=== PATIENT | female | born 1960 | race Caucasian/White ===

== ENCOUNTER → 2017-08-11 19:21 | Outpatient (CLI) | payer OTHER, SELFPAY ==
[2017-08-17 10:23] LABS: HPV Reflexed? NOT INDICATED
== END ==
PROVIDERS: Family Provider Family Medicine; PCP Family Medicine; Visit Provider Family Medicine
DX: Z01.419 Encounter for gynecological examination (general) (routine) without abnormal findings (principal)
CPT/HCPCS: 88175; G0145

== ENCOUNTER → 2017-08-14 16:25 | Outpatient (CLI) | payer OTHER, SELFPAY ==
--- NOTE | 2017-08-14 16:31 | US_ITS ---
STUDY: ULTRASOUND TRANSVAGINAL CLINICAL: Female, 56 years old. Postmenopausal bleeding. TECHNIQUE: Transabdominal and Transvaginal COMPARISON: None. FINDINGS: Normal uterine size measuring 3.9 x 5.2 x 3.3 cm in maximal craniocaudal dimension. There are uterine fibroids. One measures 8 mm and is calcified and echogenic in the anterior uterine body. Another is 2 cm and is exophytic off of the fundus. Normal endometrial thickness measuring 8 mm. There are no endometrial masses, and there is no fluid in the endometrial cavity. Endometrial echoes are hyperechoic. Nabothian cyst of the uterine cervix. Normal right ovary, measuring 2.6 x 1.8 x 1.7 cm. There are multiple follicles without a dominant cyst. Normal left ovary, measuring 3.2 x 2.2 x 1.5 cm. There is a 1.6 cm cyst. There is no free fluid in the pelvis. Normal bladder contour with volume of 300 cc. US/Pelvic (Non ) IMPRESSION: Relatively small uterine fibroids, otherwise negative. Electronically Signed: Alessandro Joe MD at 11:22 EDT , Service support ,
--- NOTE | 2017-08-14 16:42 | US_ITS ---
STUDY: ULTRASOUND TRANSVAGINAL CLINICAL: Female, 56 years old. Postmenopausal bleeding. TECHNIQUE: Transabdominal and Transvaginal COMPARISON: None. FINDINGS: Normal uterine size measuring 3.9 x 5.2 x 3.3 cm in maximal craniocaudal dimension. There are uterine fibroids. One measures 8 mm and is calcified and echogenic in the anterior uterine body. Another is 2 cm and is exophytic off of the fundus. Normal endometrial thickness measuring 8 mm. There are no endometrial masses, and there is no fluid in the endometrial cavity. Endometrial echoes are hyperechoic. Nabothian cyst of the uterine cervix. Normal right ovary, measuring 2.6 x 1.8 x 1.7 cm. There are multiple follicles without a dominant cyst. Normal left ovary, measuring 3.2 x 2.2 x 1.5 cm. There is a 1.6 cm cyst. There is no free fluid in the pelvis. Normal bladder contour with volume of 300 cc. US/Transvaginal Non- IMPRESSION: Relatively small uterine fibroids, otherwise negative. Electronically Signed: Alessandro Joe MD at 11:22 EDT , Service support ,
== END ==
PROVIDERS: Family Provider Family Medicine; PCP Family Medicine; Visit Provider Family Medicine
DX: D25.9 Leiomyoma of uterus, unspecified (principal); N95.0 Postmenopausal bleeding
CPT/HCPCS: 76830; 76856; 93976

== ENCOUNTER → 2017-09-12 09:45 | Outpatient (CLI) | payer OTHER, SELFPAY ==
[2017-09-12 11:24] LABS: Estradiol 19.7 pg/mL; Follicle Stimulating Hormone 56.3 mIU/mL
== END ==
PROVIDERS: Visit Provider Obstetrics & Gynecology
DX: N92.5 Other specified irregular menstruation (principal)
CPT/HCPCS: 36415; 82670; 83001

== ENCOUNTER 2017-10-05 09:56 | Day surgery (SDC) | payer OTHER, SELFPAY ==
[2017-09-28 17:13] LABS: Hematocrit 38.9 % (37-47); Hemoglobin 13.1 g/dl (12.0-15.0); Mean Corp Hgb Conc 33.7 g/gl (32-36); Mean Corpuscular Hgb 27.8 pg (27.0-32.0); Mean Corpuscular Volume 82.4 fL (81-99); Mean Platelet Vol. 10.1 fl (6.2-12.0); Platelet Count 309 K/mm3 (150-450); RBC Distribution Width CV 15.8 % (11.6-14.6); RBC Distribution Width SD 47.3 fl (35.1-43.9); Red Blood Count 4.72 M/mm3 (4.2-5.4); White Blood Count 8.3 K/mm3 (4.4-11.0)
[2017-09-28 17:21] LABS: Scan Indicated on CBC? Y/N NO
[2017-09-28 17:29] LABS: International Normalized Ratio 1.1; Prothrombin Time (Protime)PT. 13.7 SECONDS (11.7-14.9)
[2017-09-28 17:30] LABS: Partial Thromboplast Time 32.8 Seconds (24.1-36.2)
[2017-09-28 17:46] LABS: Anion Gap 8 (5-15); BUN 19 mg/dL (7-18); BUN/Creat Ratio 30.7 RATIO (10-20); Calcium,Total 9.1 mg/dL (8.5-10.1); Chloride 103 mmol/L (98-107); Creatinine, Serum 0.62 mg/dL (0.55-1.02); EST Glomerular Filtration Rate 105 mL/min (>60); Est Glom Filt Rate - Afr Amer 127 mL/min (>60); Glucose 86 mg/dL (74-106); Potassium 3.6 mmol/L (3.5-5.1); Sodium Level 137 mmol/L (136-145); Thyroid Stim Hormone (TSH) 0.58 uIU/mL (0.358-3.74)
[2017-09-28 18:16] LABS: Hemoglobin A1c 5.5 % (4.2-6.3)
[2017-10-05] VITALS (7 sets, daily range): BP systolic 153–168; BP diastolic 66–88; PULSE 51–66; RESP 16; TEMP 35.9–36.9; O2SAT 97–100; BMI 49.0
--- NOTE | 2017-10-05 | EMB_PTH ---
PATIENT: ROSANNE MCCLAIN LOC: [facility] [place] U#:[id number] AGE/SX: 56/F ROOM: RE10/05/[address]: Dr. Lyndsay Singh MD : 1960 BED: DIS: 10/05/2017 SPEC #: [id number] RECD: 10/06/17 13:18 STATUS: BUDDY CHERRY #: [id number] WAYNE: 10/05/17 00:[address]: Lyndsay Scott DEPT: SURGICAL PATHOLOGY RECD BY: Bib Esteban ENTERED: 10/06/17 13:19 SP TYPE: ENDOM BX/C MARY CARMEN DR: Dr. Rose Mary Ocasio MD Tissues: A - Endometrium, NOS B - Endometrium, NOS Procedures: Surgery Specimen Level IV HEADER OPERATION: Hysteroscopy, dilation and curettage, polypectomy PRE-OP DIAGNOSIS: Postmenopausal bleeding TISSUE SUBMITTED: A ? Endometrial curettings, B ? Endometrial polyp MICROSCOPIC DIAGNOSIS A. Endometrial curettings: Strips of benign endometrial epithelium and superficial fragments of inactive endometrium. Fragments of benign ectocervical epithelium. B. Endometrial polyp, polypectomy: Fragments of benign endometrial polyp with simple hyperplasia without atypia. SJ:meenakshi 10/10/17 COMMENT Case has been reviewed in consultation with Dr. Su who concurs with the above diagnosis. IDC:AM MICROSCOPIC DESCRIPTION Slides are reviewed. GROSS DESCRIPTION A - Received in fixative is one container labeled with the patient's name and designated endometrial curettings. The specimen consists of multiple fragments of hemorrhagic soft tissue that in aggregate measure 1.5 x 1.5 x 0.1 cm. The specimen is totally submitted in one cassette. B - Received in fixative is one container labeled with the patient's name and designated endometrial polyp. The specimen consists of a piece of smith-pink polyp measuring 2 x 0.6 x 0.3 cm. Also received are multiple fragments of smith soft tissue mixed with blood clot measuring in aggregate 1 x 0.5 x 0.1 cm. The entire specimen is submitted in one cassette. / SJ:meenakshi 10/06/17 TC:5 CPT: 53431 x2
[2017-10-05] MEDS: Ketorolac 30 MG/ML Syringe IV (15:15)
--- NOTE | 2017-10-05 15:36 | PCM.DC.D&C ---
Discharge Diet: No Restrictions Discharge Activity: Return to Normal Activity May resume sexual activity in: - - 2-4 weeks Call your doctor if you observe: Fever of 101 or Higher, Inability to urinate, Inability to have a bowel movement, Using more than one pad per hour, Shortness of breath, Chest pain, Calf discomfort, Uncontrolled pain Allergies/Adverse Reactions: Allergies ramipril [From Altace] Allergy (Verified 09/28/17 13:47) Swelling Medications to take at Discharge Amlodipine [Norvasc] 2.5 mg PO DAILY 03/18/15 Hydrochlorothiazide [Hctz] 12.5 mg PO DAILY 03/18/15 Levothyroxine [Synthroid] 125 mcg PO DAILY 03/18/15 Liothyronine Sodium [Cytomel] 25 mcg PO DAILY 03/18/15 Metoprolol Tartrate [Lopressor (beta akhil)] 100 mg PO DAILY 03/18/15 Ibuprofen 600 mg PO TID PRN #30 tab 10/05/17 Oxycodone [Oxyir] 5 mg PO Q6H PRN PRN 2 Days #5 tablet 10/05/17 The following prescriptions were given: Oxycodone [Oxyir] 5 mg PO Q6H PRN PRN 2 Days #5 tablet PRN Reason: Severe Pain (6-02/21) Ibuprofen 600 mg PO TID PRN #30 tab PRN Reason: Pain Primary Care Physician: Rose Mary Ocasio MD [Primary Care Provider] - Please Follow Up With: Lyndsay Hernandez MD When: 2-4 weeks
--- NOTE | 2017-10-05 16:40 | PCM.OPRPT ---
Problem List (1) Postmenopausal bleeding Status: Acute Report of Operation Date of Procedure: 10/05/17 Pre-Operative Diagnosis: Postmenopausal bleeding Post-Operative Diagnosis: Postmenopausal bleeding Surgery/Procedure Performed:: Hysteroscopy, dilation and curettage, polypectomy Description of Surgical Findings:: Endometrial polyp patient registrar: Tisha Stratton Type of Anesthesia:: Local MAC Anesthesiologist: [address] Specimen's removed: 1. Endometrial polyp 2. endometrial curettings Estimated Blood Loss (mL): 5 Description of Procedure: Indications: Ms. MCCLAIN is a 56-year-old postmenopausal woman found to have a 5 mm endometrial stripe in the setting of postmenopausal bleeding. She was counseled regarding of evaluation options and opted to proceed with dilation and curettage with hysteroscopy declined endometrial biopsy. Risks, benefits and indications of procedure were reviewed at length. Procedure: The patient was taken to the operating room and placed in the dorsal supine position and induced under MAC. She was then repositioned into dorsal lithotomy and the perineum was prepped and draped in sterile fashion. Uterus sounded to straight catheterization of the bladder was performed. A weighted speculum was placed into the vagina and the cervix visualized and grasped with anterior cervical lip using a single-tooth tenaculum. a paracervical block was placed for a total of 20 cc of 1% lidocaine. The uterus sounded to 2 and 4/6 inches. The cervix was subsequently dilated and hysteroscopy was performed demonstrating a right endometrial polyp. The cavity was otherwise normal-appearing. The hysteroscope was removed and polypectomy performed and followed by sharp curettage. Hysteroscopy was again performed the uterine cavity was without defects. The procedure was complete. The hysteroscope was removed as was the tenaculum from the cervix. The tenaculum sites were hemostatic. Hysteroscopic fluid deficit was approximately 200 mL. The patient was awakened and transferred to the recovery room without complication. The patient tolerated the procedure well. Sponge counts were correct ?2 - Complications None - Admit VTE Documentation VTE Present on Admission: No VTE Mechan Device Prophylaxis: SCD's VTE Pharm Prophylaxis ordered?: No
--- NOTE | 2017-10-05 16:46 | OP.PCM_ITS ---
Problem List (1) Postmenopausal bleeding Status: Acute Report of Operation Date of Procedure: 10/05/17 Pre-Operative Diagnosis: Postmenopausal bleeding Post-Operative Diagnosis: Postmenopausal bleeding Surgery/Procedure Performed:: Hysteroscopy, dilation and curettage, polypectomy Description of Surgical Findings:: Endometrial polyp production quality analyst: Tisha Stratton Type of Anesthesia:: Local MAC Anesthesiologist: [address] Specimen's removed: 1. Endometrial polyp 2. endometrial curettings Estimated Blood Loss (mL): 5 Description of Procedure: Indications: Ms. MCCLAIN is a 56-year-old postmenopausal woman found to have a 5 mm endometrial stripe in the setting of postmenopausal bleeding. She was counseled regarding of evaluation options and opted to proceed with dilation and curettage with hysteroscopy declined endometrial biopsy. Risks, benefits and indications of procedure were reviewed at length. Procedure: The patient was taken to the operating room and placed in the dorsal supine position and induced under MAC. She was then repositioned into dorsal lithotomy and the perineum was prepped and draped in sterile fashion. Uterus sounded to straight catheterization of the bladder was performed. A weighted speculum was placed into the vagina and the cervix visualized and grasped with anterior cervical lip using a single-tooth tenaculum. a paracervical block was placed for a total of 20 cc of 1% lidocaine. The uterus sounded to 2 and 4/6 inches. The cervix was subsequently dilated and hysteroscopy was performed demonstrating a right endometrial polyp. The cavity was otherwise normal- appearing. The hysteroscope was removed and polypectomy performed and followed by sharp curettage. Hysteroscopy was again performed the uterine cavity was without defects. The procedure was complete. The hysteroscope was removed as was the tenaculum from the cervix. The tenaculum sites were hemostatic. Hysteroscopic fluid deficit was approximately 200 mL. The patient was awakened and transferred to the recovery room without complication. The patient tolerated the procedure well. Sponge counts were correct ?2 - Complications None - Admit VTE Documentation VTE Present on Admission: No VTE Mechan Device Prophylaxis: SCD's VTE Pharm Prophylaxis ordered?: No
== END 2017-10-05 16:22 | disposition home or self-care (01) ==
LOC: SDC 09:57 → AC 09:57
PROVIDERS: Family Provider Family Medicine; PCP Family Medicine; Visit Provider Obstetrics & Gynecology
PROC: 0UDB8ZZ Extraction of Endometrium, Via Natural or Artificial Opening Endoscopic (ICD-10-PCS; CPT 58558; principal; 2017-10-05 11:15)
DX: N85.01 Benign endometrial hyperplasia (principal); N95.0 Postmenopausal bleeding; I10 Essential (primary) hypertension; E03.9 Hypothyroidism, unspecified; Z79.899 Other long term (current) drug therapy
CPT/HCPCS: 58558; 36415; 80048; 83036; 84443; 85027; 85610; 85730; 86850; 86900; 88305; J7120

== ENCOUNTER → 2017-10-18 08:06 | Outpatient (CLI) | payer OTHER, SELFPAY ==
--- NOTE | 2017-10-18 08:06 | DT_ITS ---
This patient was seen during an EMR downtime October 16, 2017 - October 23, 2017. This patient may have a combination of paper and electronic documentation or all paper documentation. All documentation is viewable within the e-chart portion of [facility] for each patient visit.
[2017-10-23 12:38] LABS: Vitamin D,25 Hydroxy 18.6 ng/mL (29.95-100.01)
[2017-10-23 12:39] LABS: Progesterone Level 1.24 ng/mL (See Comment)
[2017-10-24 17:54] LABS: ALB/GLOB Ratio 0.9 RATIO (0.9-2.4); AST(SGOT) 20 U/L (15-37); Alanine Aminotransfer ALT/SGPT 20 U/L (13-56); Albumin, Serum 3.6 g/dL (3.2-5.0); Alkaline Phosphatase 96 U/L (45-117); BUN 15 mg/dL (7-18); BUN/Creat Ratio 22.7 RATIO (10-20); Cholesterol 174 mg/dL (200); Creatinine, Serum 0.66 mg/dL (0.55-1.02); EST Glomerular Filtration Rate 98 mL/min (>60); Est Glom Filt Rate - Afr Amer 119 mL/min (>60); Globulin 3.8 g/dL (2.2-4.2); Glucose 93 mg/dL (74-106); Protein, Total 7.4 g/dL (6.4-8.2); Sodium Level 137 mmol/L (136-145); Triglycerides 80 mg/dL; Very Low Density Lipoprotein 16 mg/dL (5-40)
[2017-10-24 17:55] LABS: Anion Gap 6 (5-15); Chloride 103 mmol/L (98-107); Free T3 3.6 pg/mL (2.18-3.98); High Density Lipoprotein 55 mg/dL; Potassium 3.6 mmol/L (3.5-5.1); T4 Free Direct 1.02 ng/dL (0.76-1.46)
[2017-10-24 17:56] LABS: Prolactin 7.4 ng/mL
[2017-10-24 17:57] LABS: Hemoglobin A1c 5.6 % (4.2-6.3)
[2017-10-24 17:59] LABS: Hematocrit 47.5 % (37-47); Mean Corp Hgb Conc 31.6 g/gl (32-36); Mean Corpuscular Volume 82.5 fL (81-99); Mean Platelet Vol. 10.4 fl (6.2-12.0); Platelet Count 198 K/mm3 (150-450); RBC Distribution Width CV 15.5 % (11.6-14.6); RBC Distribution Width SD 47.1 fl (35.1-43.9); Red Blood Count 5.76 M/mm3 (4.2-5.4); Scan Indicated on CBC? Y/N NO; White Blood Count 4.5 K/mm3 (4.4-11.0)
[2017-10-24 20:55] LABS: Thyroid Stim Hormone (TSH) 0.24 uIU/mL (0.358-3.74)
== END ==
PROVIDERS: Family Provider Family Medicine; PCP Family Medicine; Visit Provider Obstetrics & Gynecology
DX: E03.9 Hypothyroidism, unspecified (principal); N92.5 Other specified irregular menstruation; R53.83 Other fatigue
CPT/HCPCS: 36415; 80053; 80061; 82306; 82533; 82627; 82670; 83036; 83498; 83525; 84144; 84146; 84270; 84403; 84439; 84443; 84481; 85027; 82626

== ENCOUNTER → 2017-11-14 08:54 | Outpatient (CLI) | payer OTHER, SELFPAY ==
[2017-11-15 09:46] LABS: Insulin 14.2 mU/L (2.6-37.6)
== END ==
PROVIDERS: Visit Provider Obstetrics & Gynecology
DX: N92.5 Other specified irregular menstruation (principal)
CPT/HCPCS: 36415; 83525

== ENCOUNTER → 2017-11-20 08:38 | Outpatient (CLI) | payer OTHER, SELFPAY | PROVIDERS: Visit Provider Obstetrics & Gynecology | DX: R94.7 Abnormal results of other endocrine function studies (principal); R79.89 Other specified abnormal findings of blood chemistry | CPT/HCPCS: 36415; 82533; 84403 ==

== ENCOUNTER → 2017-12-27 13:33 | Outpatient (CLI) | payer OTHER, SELFPAY | PROVIDERS: Family Provider Family Medicine; PCP Family Medicine; Visit Provider Family Medicine | DX: Z12.31 Encounter for screening mammogram for malignant neoplasm of breast (principal) | CPT/HCPCS: 77063; 77067 ==

== ENCOUNTER → 2018-02-19 11:46 | Outpatient (CLI) | payer OTHER, SELFPAY ==
--- NOTE | 2018-02-19 | EMB_PTH ---
PATIENT: ROSANNE MCCLAIN LOC: [facility] U#:[id number] AGE/SX: 64/F ROOM: RE02/19/[address]: Dr. Lyndsay Singh MD : 1960 BED: DIS: SPEC #: [id number] RECD: 02/19/18 13:54 STATUS: BUDDY CHERRY #: [id number] WAYNE: 02/19/18 00:[address]: Lyndsay Scott DEPT: SURGICAL PATHOLOGY RECD BY: Fareed Jones Tissues: Endometrium, NOS Procedures: Surgery Specimen Level IV HEADER OPERATION: Endometrial biopsy PRE-OP DIAGNOSIS: History of endometrial hyperplasia, TISSUE SUBMITTED: Endometrial biopsy MICROSCOPIC DIAGNOSIS Endometrial biopsy: Strips and superficial fragments of proliferative endometrium, blood and mucous. Negative for hyperplasia. SJ:meenakshi 02/20/18 COMMENT Please make reference to previous specimen ([id number]), A - endometrial curettings with diagnosis of strips of benign endometrial epithelium and superficial fragment of inactive endometrium and B - endometrial polyp, polypectomy with diagnosis of fragments of benign endometrial polyp with simple hyperplasia without atypia. Clinical correlation and appropriate follow up are necessary. MICROSCOPIC DESCRIPTION Slides are reviewed. GROSS DESCRIPTION Received is one container labeled with the patient's name and not further designated. The specimen consists of multiple fragments of hemorrhagic mucoid tissue that in aggregate measure 3 x 2.5 x 0.3 cm. The entire specimen is submitted in one cassette. / SJ:rg 02/19/18 TC:4 CPT: 35845
== END ==
PROVIDERS: Visit Provider Obstetrics & Gynecology
DX: N85.00 Endometrial hyperplasia, unspecified (principal); E55.9 Vitamin D deficiency, unspecified
CPT/HCPCS: 82306; 88305

== ENCOUNTER 2018-04-19 15:26 | Observation (INO) | payer OTHER, SELFPAY ==
--- NOTE | 2018-04-12 16:08 | EKG12_ITS ---
Test Reason : PRE OP Blood Pressure : / mmHG Vent. Rate : 045 BPM Atrial Rate : 045 BPM P-R Int : 164 ms QRS Dur : 092 ms QT Int : 478 ms P-R-T Axes : 063 039 029 degrees QTc Int : 413 ms Marked sinus bradycardia Nonspecific ST segment abnormality Confirmed by MARIALUISA PAYNE, HAROON ([id number]), assistant editor MARGARITA HICKMAN ([id number]) on 04/17/2018 2:16:05 PM Referred By: Lyndsay Hernandez Confirmed By:HAROON ELAM MD
[2018-04-12 17:22] LABS: Hematocrit 40.4 % (37-47); Hemoglobin 13.1 g/dl (12.0-15.0); Mean Corp Hgb Conc 32.4 g/gl (32-36); Mean Corpuscular Volume 83.3 fL (81-99); Mean Platelet Vol. 10.4 fl (6.2-12.0); Platelet Count 280 K/mm3 (150-450); RBC Distribution Width CV 15.2 % (11.6-14.6); RBC Distribution Width SD 46.5 fl (35.1-43.9); Red Blood Count 4.85 M/mm3 (4.2-5.4); White Blood Count 8.5 K/mm3 (4.4-11.0)
[2018-04-12 17:24] LABS: Scan Indicated on CBC? Y/N NO
[2018-04-12 17:49] LABS: International Normalized Ratio 1.1
[2018-04-12 17:50] LABS: Partial Thromboplast Time 31.4 Seconds (24.1-36.2)
[2018-04-12 18:02] LABS: Anion Gap 8 (5-15); BUN 13 mg/dL (7-18); BUN/Creat Ratio 15.2 RATIO (10-20); Calcium,Total 9.3 mg/dL (8.5-10.1); Chloride 103 mmol/L (98-107); Creatinine, Serum 0.86 mg/dL (0.55-1.02); EST Glomerular Filtration Rate 72 mL/min (>60); Est Glom Filt Rate - Afr Amer 87 mL/min (>60); Glucose 79 mg/dL (74-106); Potassium 4.1 mmol/L (3.5-5.1); Sodium Level 138 mmol/L (136-145)
[2018-04-13 16:13] LABS: Thyroid Stim Hormone (TSH) 0.17 uIU/mL (0.358-3.74)
[2018-04-19] VITALS (11 sets, daily range): BP systolic 97–151; BP diastolic 44–64; PULSE 40–49; RESP 16; TEMP 35.6–36.9; O2SAT 93–99; BMI 45.1; BMI 44.9
--- NOTE | 2018-04-19 09:29 | HP.PCM_ITS ---
- Problem List (1) Endometrial hyperplasia Status: Acute (2) Postmenopausal bleeding Status: Acute History and Physical Date of Admission: 04/19/18 Date: 04/12/2018 Name: SHERRON BANERJEE Age: 57 Date of : 1960 HISTORY OF PRESENT ILLNESS: On 04/12/2018, Sherron Banerjee, a 57 year old female 0 0 0 0 0, presented for: -- Pre-Op -- Sherron is here for pre-op visit. She is ready to proceed. PAT packet provided and consents are signed. ERAS packet given. LMT as above. Sherron has a h/o recurrent postmenopausal bleeding in setting of recent endometrial hyperplasia. She was treated with progesterone initially with negative follow up EMB, but postmenopausal bleeding persisted. She feels well today. shm ALLERGIES: Beta-Adrenergic Agents, Swelling-face & neck MEDICATIONS HISTORY: Patient is also takin. amlodipine 2.5 mg tablet, 1 PO QD 2. hydrochlorothiazide 25 mg tablet, 1 PO QD 3. levothyroxine 125 mcg tablet, 1 PO QD 4. metoprolol tartrate 100 mg tablet, 1 PO QD 5. liothyronine 25 mcg tablet, 1 PO QD REVIEW OF SYSTEMS: GENERAL - Denies fever, or chills SKIN - Denies skin changes EYES - Denies visual changes EARS - Denies difficulty hearing NOSE - Denies nasal congestion or bleeding MOUTH - Denies sore throat or difficulty swallowing NECK - Denies pain or swelling RESPIRATORY - Denies shortness of breath or wheezing CARDIOVASCULAR - Denies palpitations or chest pain GASTROINTESTINAL - Denies nausea, vomiting, diarrhea, constipation GENITOURINARY - Denies dysuria, frequency of urination, incontinence of urine MUSCULOSKELETAL - Denies joint or muscle pain NEUROLOGICAL - Denies localized numbness or weakness PSYCHIATRIC - Denies depression or anxiety ENDOCRINE - Denies heat or cold intolerance, weight loss or gain HEMATO-IMMUNOLOGIC - Denies excesive bleeding with cuts PAST HISTORY: Breast/Ovarian/Colon Cancers - paternal grandfather colon ca Infections - Chicken pox Illnesses - hypothyroidism, HTN Accidents - None History of Abnormal PAPS - Denies Hospitalizations - see surgery SURGICAL HISTORY: 1. breast reduction surgery 2. rotator cuff surgery 3. foot surgery x 2 left 4. 10/05/2017 hysteroscopy, D and C, polypectomy Lyndsay Singh MD MENSTRUAL HISTORY: LMP Known?- ApproximateAmount/Duration - 3-4 days, Regularity - irregular, Frequency - 1-2 times per year days, LMP - 08/07/17, Age Onset Menarche - 8 PAST PREGNANCIES: Total Pregnancies - 0; Full Term Pregnancies - 0; Premature - 0; Abortions, Induced - 0; Abortions, Spontaneous - 0; Ectopics - 0; Multiple Births - 0; Living Children - 0 FAMILY HISTORY: Father - Hypertension; Father - Neoplasm of kidney; Mother - Hypertension; Brother - Hypertension; PaternalGrandparent - Colon Cancer; SOCIAL HISTORY: Alcohol Use - drinks occasionally Smoking - denies smoking Diet - no special diet Lifestyle - low stress lifestyle Exercise - regular Seat Belt Use - always 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, 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 Drug Use - denies use of street drugs Sexual Activity - sexually inactive Residence - owns a home PHYSICAL EXAMINATION BP- 102/70 Sitting, Right arm, large cuff Temp- 97.8 Taken Orally Weight- 250.00 lbs Height- 61.75 inch BMI:46.19 CONSTITUTIONAL - NAD, well nourished, and well developed SKIN - No rash, lesions, or ulcers HEENT - normocephalic, atraumatic, sclerae anicteric LUNGS - normal respiratory rate and rhythm CARDIAC - normal heart sounds and physiologic rhythm BREAST - No dominant masses, no tenderness, no axillary adenopathy, no nipple discharge, no skin changes ABDOMEN - Without hepatosplenomegaly, distention, masses, rebound, or guarding; normal bowel sounds; no hernias EXTREMITIES - no calf tenderness NEUROLOGICAL - normal gait, normal balance, normal motor PSYCHIATRIC - A and O to time, place, person, mood and affect ASSESSMENT: PLAN BY DIAGNOSIS: 1. Benign Endometrial Hyperplasia, Body Mass Index (bmi) 45.0-49.9, Adult and Postmenopausal Bleeding Persistent postmenopausal bleeding - prior h/o endometrial hyperplasia Plan for NEELAM POSEY - with ovarian conservation r/b/i/a of procedures reviewed. Consents signed and pt with opportunity to ask questions and questions answered to her satisfaction. ERAS prep packet given and reviewed with nursing staff Preop labs today, EKG pending
[2018-04-19 11:06] LABS: Bedside Glucose 93 mg/dL (70-110)
[2018-04-19] MEDS: Gabapentin 600 MG Tablet PO (11:19)
[2018-04-19] MEDS: Acetaminophen 500 MG Tablet 1000 MG PO (11:20)
--- NOTE | 2018-04-19 12:30 | HYST_PTH ---
PATIENT: ROSANNE MCCLAIN LOC: [facility] U#:[id number] AGE/SX: 57/F ROOM: [facility] [place] RE04/19/[address]: Dr. Sebastian Rob DO : 1960 BED: 1 DIS: 04/21/2018 SPEC #: [id number] RECD: 04/19/18 16:06 STATUS: BUDDY CHERRY #: [id number] WAYNE: 04/19/18 12:[address] RECD BY: Javi Goldman ENTERED: 04/20/18 08:23 SP TYPE: HYSTERECT OTHR DR: Dr. Rose Mary Ocasio MD Tissues: Uterus, NOS Procedures: Surgery Specimen Level V HEADER OPERATION: Hysterectomy, lap-assisted vagina, salpingectomy PRE-OP DIAGNOSIS: Endometrial hyperplasia, postmenopausal bleeding TISSUE SUBMITTED: Uterus, bilateral tubes MICROSCOPIC DIAGNOSIS Uterus, hysterectomy: Cervix - minimal chronic inflammation and nabothian cysts. Endometrium - mildly disordered proliferative endometrium. Myometrium - leiomyomas and adenomyosis. Right fallopian tube - benign paratubal cysts. Left fallopian tube - no pathologic change. AM:meenakshi 04/23/18 MICROSCOPIC DESCRIPTION Slides are reviewed. GROSS DESCRIPTION Received in fixative is one container labeled with the patient's name and designated uterus. The specimen consists of a uterus with attached cervix and attached right and left fallopian tubes. The uterus with cervix measures 8.8 x 6 x 4.2 cm and weighs 80 gm. The ectocervix is unremarkable. The cervical os is oval in contour. A subserosal nodularity is identified in the posterior portion consistent with a leiomyoma. The endocervical canal measures 3 cm in length and is grossly unremarkable. The triangular endometrial cavity measures 4 x 3 cm. The velvety, light smith endometrium measures up to 0.2 cm in thickness. The nodules are submucosal, intramural and subserosal in location. The right fallopian tube measures 8 cm in length and 0.5 cm in average diameter. The fimbriated end has a normal villous appearance. The fimbriated end contains two smooth, glistening cysts. The left fallopian tube is similar in appearance and is received in two fragments and measures 6 cm in length and 0.4 cm in average diameter. Teacher Ballet sections are submitted in 11 cassettes as follows: 1 - anterior cervix, 2 - posterior cervix, 3 & 4 - anterior uterine wall, 5 & 6 - posterior uterine wall, 7 - largest myometrial mass, 8 - second and third largest myometrial masses, 9 - right fallopian tube, paratubal cysts, 10 - right fallopian tube, 11 - left fallopian tube. / AM:meenakshi 04/20/18 TC:1 CPT: 53395
[2018-04-19] MEDS: Bupivacaine 0.5% PF 10 ML VIAL (15:27)
[2018-04-19] MEDS: Ketorolac 30 MG/ML Syringe IV ×2 (16:35→21:22)
[2018-04-19] MEDS: Dextrose 5%-Lactated Ringers 1,000 ML 125 ML IV (18:51)
--- NOTE | 2018-04-19 19:10 | PCM.PN.OB ---
Subjective: Pain is controlled since Morphine given in PACU. OOB to chair and ambulating. Voided approximately 25 cc. Has scant vaginal bleeding on wiping only. Denies chest pain, shortness of breath or lightheadedness. No flatus yet. Tolerates clears. Objective: AVSS - Physical Exam General: Alert, Oriented x3, Cooperative, No apparent distress HEENT: Atraumatic, Normocephalic Lungs: Clear to auscultation, Normal air movement Cardiovascular: Regular rate, Regular Rhythm, Normal S1, Normal S2 Abdomen: Bowel Sounds Present, Soft, Non Tender, Non-Distended Extremities: No Calf Tenderness Neurological: Neuro grossly intact Psych/Mental Status: Normal Affect, Appropriate, Alert and oriented to time, place, person, mood and affect Vital Signs Temp Pulse Resp BP Pulse Ox 97.3 F L 48 L 16 100/48 L 98 04/19/18 18:56 04/19/18 18:56 04/19/18 18:56 04/19/18 18:56 04/19/18 18:56 Oxygen Flow Rate (L/min) 2 Oxygen Delivery Method Room Air Weight: 111.584 kg Body Mass Index (BMI) 44.9 Intake and Output for Last 24 Hours 04/17/18 04/18/18 04/19/18 23:59 23:59 23:59 Intake Total 1999 / 1999 Output Total 150 / 150 Balance 1850 / 1850 POC Glucose 04/19/18 11:00 POC Glucose 93 Medical Necessity - Tobacco Use Smoking Status: Never smoker Assessment/Plan All Active Problems Endometrial hyperplasia (Acute) Postmenopausal bleeding (Acute) 57yo s/p LAVH, adhesiolysis, bilateral salpingectomy doing well. -Continue voiding trial - will replace cooney if no adequate void by midnight -Regular diet -Will d/c IVF -Encouraged ambulation -Bradycardia likely 2/2 metoprolol. Pt denies h/o symptomatic low heart rate and per her fitness tracker her baseline heart rate is typically in the 50s. Will continue to monitor.
--- NOTE | 2018-04-19 19:15 | PCM.OPRPT ---
Problem List (1) Endometrial hyperplasia Status: Acute (2) Postmenopausal bleeding Status: Acute Report of Operation Date of Procedure: 04/19/18 Pre-Operative Diagnosis: Postmenopausal bleeding, endometrial hyperplasia Post-Operative Diagnosis: Postmenopausal bleeding, endometrial hyperplasia Surgery/Procedure Performed:: laparoscopic assisted vaginal hysterectomy, adhesiolysis, bilateral salpingectomy Description of Surgical Findings:: Multifibrid uterus, normal tubes and ovaries, adhesions of sigmoid to abdominal side wall equalizing saw operator: Jacey Almanza Type of Anesthesia:: General Anesthesiologist: Augustine Street Specimen's removed: uterus, cervix, tubes Drains: 150cc urine Estimated Blood Loss (mL): 150 mL Fluids Replaced: 1200 ml Description of Procedure: Indications: 57yo postmenopausal woman with postmenopausal bleeding. She was initial diagnosed with endometrial hyperplasia without atypia and completed a course of prometrium. Repeat endometrial biopsy showed no evidence of hyperplasia however postmenopausal bleeding again recurred. Following counseling opted to proceed with hysterectomy. Risks, benefits, indications and alternatives were reviewed and patient desired to proceed with plan for bilateral salpingectomy and ovarian conservation following surgery. Procedure: The patient was taken to the operating room and sign in was performed. She was placed in the dorsal supine position and induced under general anesthesia and intubated. She was repositioned into dorsal lithotomy and EUA performed. The perineum and abdomen were prepped and draped in sterile fashion and cooney catheter placed into the bladder. Patient was repositioned into high lithotomy. A weight speculum was placed vaginally and cervix grasped with a single tooth tenaculum and sounded. A V-Care uterine manipulator was placed and sutured secured to the cervix and the tenaculum and speculum were removed. The patient was repositioned into low lithotomy. Attention was turned to the abdomen. An infraumbilical incision was made using the scalpel and Veress needle placed with no aspirate and successful hangdrop. Insufflation was performed however on placement of the trochar with the laparoscope it appeared there was preperitoneal insufflation. Veress needle placement was again reattempted however entry pressures at this time were elevated, thus the Veress needle was removed and I attempted laparoscopic entry and the abdominal cavity was successfully entered with a 5mm trochar. The abdomen was insufflated to 15mmHg and the patient placed into Trendelenberg. Additional incisions were made and 5mm ports placed in the right and left lower quadrants under transillumination as well as suprapubically. The abdomen and pelvis were inspected. Filmy adhesions of the sigmoid colon were lysed sharply and bluntly allowing further exposure of the left adnexa. The left tube was transected from the mesosalpinx using the Enseal to the level of the uterine cornua. The round ligament, then utero-ovarian ligament was coagulated and cut using the Enseal device. The anterior broad ligament was opened and the left uterine vessels skeletonized and bladder flap created using the cold and monopolar sina. In similar fashion, right salpingectomy was performed and followed by coagulation and transection of the round and utero-ovarian ligaments with opening of the anterior right broad ligament to skeletonize the right uterine vessels and subsequently completed the bladder flap. The uterine vessels were coagulated and cut bilaterally using the Enseal device. The abdomen was desufflated and attention subsequently turned vaginally. The patient was placed into high lithotomy and a weight speculum was placed vaginally. Posterior colpotomy was performed using the Rojas scissors entering the culdesac and a long weighted speculum placed here. A semi-circular incision was made along the anterior cervix to expose the cervicovesico-space. The space was developed with sharp dissection and the anterior culdesac peritoneum was sharpy entered. A janet was placed into the anterior culdesac. The uterosacral and cardinal ligements were serially Nori clamped, cut and suture ligated with 0-Vicryl with release of the uterus and tubes. A Modified Mcgovern's culdeplasty was performed with 0-Vicryl suture incorporating the bilateral uterosacral pedicles with the posterior peritoneum. The vaginal cuff was reapproximated using 0 Vicryl serial figure of eight sutures with excellent hemostasis. Attention was turned again to the abdomen. The abdomen was reinsufflated and the pelvis reinspected. The pelvis was irrigated and suctioned with excellent hemostasis. The procedure was completed. The abdomen was desufflated and trochars removed. The incisions were closed with 4-0 monocryl and steristrips and Opsite dressing were placed. A total of 20cc of half percent Sensorcaine was administered locally. The Cooney catheter was removed from the bladder. The patient was repositioned into dorsal supine position, awakened, extubated and transferred to the recovery room without complication. - Complications None - Admit VTE Documentation VTE Present on Admission: No VTE Mechan Device Prophylaxis: SCD's
[2018-04-19] MEDS: amLODIPine 2.5 MG Tablet PO (21:23)
[2018-04-19] MEDS: Enoxaparin 40 MG/0.4 ML Syringe SC (22:05)
[2018-04-20 03:00] VITALS: BP 133/53; PULSE 50; RESP 16; TEMP 36.4; O2SAT 97
[2018-04-20] MEDS: Ketorolac 30 MG/ML Syringe IV (05:53)
[2018-04-20] MEDS: 0.9% NaCl Peripheral Flush Adult/Peds IV (05:54)
[2018-04-20] MEDS: Levothyroxine 125 MCG Tablet PO (05:54)
[2018-04-20 06:04] LABS: Anion Gap 10 (5-15); BUN 12 mg/dL (7-18); BUN/Creat Ratio 17.3 RATIO (10-20); Calcium,Total 8.3 mg/dL (8.5-10.1); Chloride 92 mmol/L (98-107); EST Glomerular Filtration Rate 92 mL/min (>60); Est Glom Filt Rate - Afr Amer 111 mL/min (>60); Estimated Creatinine Clearance 68.44 ml/min; Glucose 124 mg/dL (74-106); Potassium 3.9 mmol/L (3.5-5.1); Sodium Level 127 mmol/L (136-145)
[2018-04-20 06:12] LABS: Hematocrit 34.2 % (37-47); Hemoglobin 11.6 g/dl (12.0-15.0); Mean Corp Hgb Conc 33.9 g/gl (32-36); Mean Corpuscular Hgb 27.8 pg (27.0-32.0); Mean Platelet Vol. 10.7 fl (6.2-12.0); Platelet Count 211 K/mm3 (150-450); RBC Distribution Width CV 14.6 % (11.6-14.6); RBC Distribution Width SD 42.3 fl (35.1-43.9); Red Blood Count 4.17 M/mm3 (4.2-5.4); White Blood Count 8.7 K/mm3 (4.4-11.0)
[2018-04-20 06:23] LABS: Scan Indicated on CBC? Y/N NO
[2018-04-20 06:35] VITALS: O2SAT 96
[2018-04-20 07:37] VITALS: BP 138/57; PULSE 56; RESP 18; TEMP 36.4; O2SAT 100
[2018-04-20 07:40] VITALS: PULSE 56
[2018-04-20] MEDS: Metoprolol Tartrate 100 MG Tablet PO (07:40)
[2018-04-20 08:55] LABS: Sodium Level 122 mmol/L (136-145)
[2018-04-20] MEDS: Ketorolac 10 MG Tablet PO ×2 (11:26→17:06)
[2018-04-20 13:37] VITALS: BP 145/43; PULSE 51; RESP 18; TEMP 36.3; O2SAT 99
--- NOTE | 2018-04-20 13:52 | CT_ITS ---
STUDY: CT ABDOMEN AND PELVIS WITH CONTRAST REASON FOR EXAM: Female, 57 years old. Low urine output Status post hysterectomy RADIATION DOSAGE (If Supplied By Facility): CTDIvol = ( 19.22 ) mGy, DLP = ( 2014.09 ) mGycm TECHNIQUE: Transaxial images were obtained from the dome of the diaphragm to the symphysis pubis without oral contrast. 100 ml of Isovue 300 contrast was administered. Sagittal and coronal images were reconstructed. Individualized dose optimization techniques were used for this CT. COMPARISON: None. FINDINGS: The visualized lung bases are unremarkable. The visualized portions of the heart are within normal limits. The breast tissue is asymmetric on the left with visualized left breast skin thickening and subtle increased density. Within the mid aspect of the liver there is a focus of low attenuation with peripheral vascularity that measures 2.1 x 1.4 cm which may represent a small hemangioma. Normal gallbladder and extrahepatic biliary system. Normal spleen. Normal pancreas. Normal bilateral adrenal glands. Normal right kidney. Normal left kidney. There is a air-fluid level in the stomach. Normal small intestine. There is a relative decompressed appearance of the colon. There is pneumoperitoneum and extraperitoneal gas as well as gas in the midline umbilical soft tissues and along the fascial planes. There is non-visualization of the appendix. Normal abdominal aorta. Normal inferior vena cava. Gas bubbles in the retroperitoneum. The bladder is distended. There is no evidence of gas bubbles in the bladder. A Sanon catheter is not present. There is a vaginal stump small foci of hyperdensity at the vaginal stump with a few gas bubbles compatible with recent postoperative change. There is no significant free fluid or extraperitoneal fluid. There is absence of the uterus consistent with a prior hysterectomy. There is a residual cystic structure in the right side of the adnexa which may represent an ovary measuring 2.5 x 2.3 cm and in the left adnexa measuring 2.1 x 1.6 cm. There is bilateral flank edema. There are diffuse degenerative changes of the visualized lumbar spine. CT/Abdomen/Pelvis W IV Cont ONLY IMPRESSION: Postoperative changes in the abdomen and pelvis status post hysterectomy with extensive pneumoperitoneum and subcutaneous emphysema as well as gas in the fascial planes, as well as retroperitoneal gas. There is no significant free fluid. The bladder is partially distended partially filling with contrast without evidence of gas bubbles. A Sanon catheter is not seen. Normal bilateral nephrograms, no hydronephrosis. There is a low attenuating structure within the mid aspect of the liver which may represent a cyst or hemangioma is likely neoplasm for which a follow-up MRI or three-phase liver mass CT scan is suggested when appropriate. Asymmetric breast tissue left side breast skin thickening overlying for technique recommend follow-up mammogram ultrasound correlation with history. Electronically Signed: Lillian Polo MD at 16:12 EST Tel , Service support ,
--- NOTE | 2018-04-20 14:00 | PCM.PN.BLA ---
Progress Note PROGRESS NOTE Call to patient room approximately 1345h. Reviewed with patient repeat Na level decreased further and urine output not improved. Recommend CT A/P to r/o surgery related urinary tract obstruction - indications, risks, benefits reviewed. Patient in agreement with plan. CT ordered, will f/u results and consult Hospitalist to further w/u hyponatremia.
--- NOTE | 2018-04-20 14:23 | PCM.PN.HOSP ---
Patient Problems: Active and Suspected Problems S/P hysterectomy (Acute) Subjective: Patient is a 57 y/o female with a PMH of hypertension, hypothyroidism, post op menstrual bleeding s/p laparoscopic hysterectomy. Hospitalist service was consulted to manage hyponatremia. Sodium was 138 on 04/12/18, and is now 122. Denies having any history of low sodium. She says her urine output has not been good but she is been drinking lots of water and has drank about 4 L today. She denies any fever chills, any chronic cough, any weight loss, any chest pain, abdominal pain, any diarrhea vomiting. She has hypothyroidism and has been compliant with her medication and took her thyroid medication this morning. Vitals/I&O's: Vital Signs Temp Pulse Resp BP Pulse Ox 97.4 F L 51 L 18 145/43 H 99 04/20/18 13:37 04/20/18 13:37 04/20/18 13:37 04/20/18 13:37 04/20/18 13:37 Oxygen Flow Rate (L/min) 2 Oxygen Delivery Method Room Air Weight: 246 lb Body Mass Index (BMI) 44.9 Intake and Output for Last 24 Hours 04/18/18 04/19/18 04/20/18 23:59 23:59 23:59 Intake Total 1999 / 1999 7196 / 7196 Output Total 150 / 150 450 / 450 Balance 1850 / 1850 6746 / 6746 General: Alert, Oriented x3, Cooperative, No apparent distress HEENT: Atraumatic, PERRLA, EOMI, Normocephalic Oral: Moist Mucosa Neck: Supple, No JVD, Negative Carotid Bruits Lungs: Clear to auscultation, Normal air movement, No rhonchi, No wheeze, No rales Cardiovascular: Regular rate, Regular Rhythm, Normal S1, Normal S2, No murmurs Abdomen: Bowel Sounds Present, Soft, Non Tender, Non-Distended, No Hepato-splenomegaly, - - laparoscopic sites minimally tender; clean dressing in place Extremities: No clubbing, No cyanosis, No edema, Capillary Refill Less than 3 Seconds Skin: No rashes, No breakdown Musculoskeletal: No Tenderness to Palpation of Joints or Extremities Lymphatic: No Cervical, Supraclavicular, or Inguinal Adenopathy Neurological: Cranial nerves II-XII grossly intact, Neuro grossly intact, Motor Exam 5/5 strength throughout Psych/Mental Status: Normal Affect, Appropriate, Alert and oriented to time, place, person, mood and affect Laboratory Results 04/20/18 05:14: WBC 8.7, RBC 4.17 L, Hgb 11.6 L, Hct 34.2 L, MCV 82.0, MCH 27.8, MCHC 33.9, RDW 14.6, RDW Differential 42.3, Plt Count 211, MPV 10.7 04/20/18 05:14: Sodium 127 L, Potassium 3.9, Chloride 92 L, Carbon Dioxide 25.0, Anion Gap 10, BUN 12, Creatinine 0.70, Estim Creat Clear Calc 68.44, Est GFR (MDRD) Af Amer 111, Est GFR (MDRD) Non-Af 92, BUN/Creatinine Ratio 17.3, Glucose 124 H, Calcium 8.3 L 04/20/18 08:36: Sodium 122 L Current Medications Amlodipine Besylate (Norvasc) 2.5 mg PO QHS COUNT INCLUDES THE [facility] Last Admin: 04/19/18 21:23 Dose: 2.5 mg Hydromorphone HCl (Dilaudid Inj) 0.5 - 1 mg IV Q3H PRN PRN PRN Reason: Moderate-Severe Pain (4-10/10) Sodium Chloride () 1,000 mls @ 125 mls/hr IV .Q8H COUNT INCLUDES THE [facility] Ketorolac Tromethamine (Toradol) 10 mg PO Q6 COUNT INCLUDES THE [facility] Stop: 04/25/18 07:32 Last Admin: 04/20/18 11:26 Dose: 10 mg Levothyroxine Sodium (Synthroid) 125 mcg PO DAILY@0600 COUNT INCLUDES THE [facility] Last Admin: 04/20/18 05:54 Dose: 125 mcg Liothyronine Sodium (Cytomel) 25 mcg PO DAILY COUNT INCLUDES THE [facility] Last Admin: 04/20/18 07:40 Dose: 25 mcg Metoprolol Tartrate (Lopressor (Beta Dionte)) 100 mg PO DAILY COUNT INCLUDES THE [facility] Last Admin: 04/20/18 07:40 Dose: 100 mg Ondansetron HCl (Zofran) 4 mg IV Q4H PRN PRN PRN Reason: NAUSEA Oxycodone HCl (Oxyir) 5 mg PO Q6H PRN PRN PRN Reason: SEVERE PAIN (6-10/10) Simethicone (Mylicon) 80 mg PO PCHS COUNT INCLUDES THE [facility] Last Admin: 04/20/18 11:26 Dose: 80 mg Sodium Chloride () 5 - 15 ml IV UD PRN PRN Reason: SALINE FLUSH Last Admin: 04/20/18 05:54 Dose: 10 ml Medical Necessity - Tobacco Use Smoking Status: Never smoker Assessment/Plan All Active Problems S/P hysterectomy (Acute) Endometrial hyperplasia (Acute) Postmenopausal bleeding (Acute) 57-year-old admitted for laparoscopic hysterectomy and bilateral salpingo-oophorectomy was subsequently developed hyponatremia. 1. Hyponatremia etiology is currently not clear is POD 1 from surgery urine output only 150mls yesreday and 450m,ls today. In positive balance by 8.5L since admission has hypothyroidism and is compliant with her Synthroid. TSH checked on 04/19/2018 showed TSH of 0.18 which likely means is over suppressed. In light of her positive fluid balance by about 8.5 L, I cannot rule out fluid overload as a cause of the hyponatremia. Had some fine bibasilar crackles on auscultation, though she doesnt look short of breath Will check serum osmolality and a chest x-ray as well- CXR showed possible mild vascular congestion, serum osmolality was low at ~ 230 check urine sodium- urine sodium was 54, with elevated urine osmolality of 230 TSH was 0.17, with free T4 of 1.20 and low free T3 of 0.7 patient therefore has a hypervolemic, hypotonic hyponatremia, though she appears clinically euvolemic; SIADH is another consideration in light of elevated urine osmolality will give IV lasix 40mg bid restrict fluid to 1L discussed with Dr Chen- will repeat stat BMP; if sodium is trending down, will need hypertonic saline to bring sodium up by ~ 5 mmol/L nephrology consult placed with Dr Chen discussed with Med Surg nurses- if need be, hypertonic saline can be given on Med Surg with telemetry 2. Post menopausal bleeding s/p hysterectomy and bilateral salpingo-oophrectomy toady is POD 1 management as per [employer] pain management as per sales communications manager 3. Hypothyroidism: on Synthroid. TSH was 0.17 on 03/20/2018. free T3 and T4 as under 1. 4. Asymptomatic bradycardia: Heart rate has been in the 40s and 50s. Has no complaints. On metoprolol 100 mg daily. Will decrease dose to 50 mg daily and monitor. 5. Hypertension: fairly controlled. BP in 130s-140s systolic since surgery on amlodipine 2.5 mg daily, hydrochlorothiazide 12.5 mg daily and metoprolol 100 mg daily. DVT prophylaxis: as per gynecology Thank you for the courtesy of the consult. We will continue to follow with you. Code Visit Inpatient E&M: 63433 Subs Hosp L3
[2018-04-20] MEDS: 0.9% Normal Saline 1,000 ML 125 ML IV (14:29)
--- NOTE | 2018-04-20 14:59 | RAD_ITS ---
STUDY: X-RAY CHEST REASON FOR EXAM: Female, 57 years old. CHF TECHNIQUE: PA and lateral views of the chest. COMPARISON: January 01, 2016 chest x-ray FINDINGS: There is persistent elevation of the right hemidiaphragm. The interstitial markings are mildly prominent. There is no demonstrated pleural abnormality. Normal size heart. Normal mediastinum and han. Normal visualized pulmonary arteries. Normal visualized aortic arch and descending thoracic aorta. Normal visualized thoracic spine. Normal visualized ribs, clavicles, and shoulders. There is no demonstrated abnormality of the visualized soft tissue structures of the upper abdomen. RAD/Chest PA and Lateral IMPRESSION: Nonspecific trace interstitial prominence. Could consider minimal vascular congestion. Mild cardiomegaly. Electronically Signed: Lillian Polo MD at 16:01 EST Tel , Service support ,
[2018-04-20] MEDS: Furosemide 40 MG/4 ML Vial IV ×2 (16:17→21:27)
[2018-04-20 17:04] LABS: BNP,B-Type NATRIURETIC PEPTIDE 136.5 pg/mL (0-100)
[2018-04-20 17:05] LABS: Free T3 1.7 pg/mL (2.18-3.98)
[2018-04-20 17:06] LABS: Bacteria 0 SEEN /hpf (None Seen); Mucous, Urine 0 SEEN /hpf (<or=2+); Squamous Epithelial Cells - UA 0 SEEN /hpf (5-10); White Blood Cells 0 SEEN /hpf (0-5)
[2018-04-20 17:13] LABS: Urine Sodium 54 mmol/L (Not Establ.)
[2018-04-20 17:24] LABS: Color, Urine Yellow (Yellow); Glucose, Dipstick Normal (Normal); Ketone-Dipstick Negative (Negative); Leukocyte Esterase-Dipstick Negative /ul (Negative); Nitrite-Dipstick Negative (Negative); Occult Blood-Urine 250 /ul (Negative); Protein-Dipstick Negative (Negative); Urine Bilirubin Dipstick Negative (Negative); Urine Clarity Clear (Clear); Urine Urobilinogen Normal (Normal); Urine pH 6.5 (5.0 - 8.0)
--- NOTE | 2018-04-20 17:31 | PCM.PN.BLA ---
Progress Note PROGRESS NOTE Patient seen. She reports doing better. She has voided more since given Lasix this afternoon. She notes some disorientation late in the morning however which has resolved. Pain is controlled. Reviewed role of hospitalist in care management to follow up hyponatremia and discussed sequelae of untreated hyponatremia. Discussed CT findings with no evidence of urinary obstruction or urinary perforation apart from bladder retention with greater bladder volume than appreciated on bladder scan. Additionally, liver lesion present requiring further w/u and some L. breast skin thickening noted. Patient chart was previously reviewed with last documented mammogram in 2016 and wnl. Had clinical breast exam in July with PCP and also normal. On exam, AVSS, UO improved following Lasix administration. Well appearing and alert and oriented to person, place and time with normal mood and affect. Bilateral breast exam performed, sitting and supine with scarring noted c/w prior breast reduction procedure bilaterally and fullness of the left breast, which patient reports is persistent since reduction. She notes that the left breast did require a revision however after incision separation. Breast exam is without dominant masses, no peau de orange or breast edema, no nipple leakage, or color changes. Plan: Hospitalist recommendations appreciated - await urinary electrolyte studies, f/u TFTs. Will d/c IVF. UO improvement suggests urinary retention - now resolved. Strict I/O Will plan to order outpatient mammogram and outpatient abdominal MRI to f/u liver lesion. Resume regular diet Ambulation encouraged, Lovenox for DVT ppx
[2018-04-20 17:37] LABS: Red Blood Cells-Urine 5-10 SEEN /hpf (0-5)
[2018-04-20 17:51] LABS: Osmolality, Urine 230 mOsm/KG
[2018-04-20 17:51] LABS: Osmolality, Serum 246 mOsm/KG (275-295)
--- NOTE | 2018-04-20 17:51 | DCINST_ITS ---
Discharge Diet: No Restrictions Discharge Activity: Return to Normal Activity, May not drive while taking narcotic pain medications., May Shower, - - No tub bath, no douching, no intercourse. May resume sexual activity in: 6 weeks Lifting Restrictions: 10 lb Call your doctor if your incision/area has: Continuous Slow Oozing, Sudden Increased Bleeding, Increased Pain/ Swelling, Increased Redness Call your doctor if you observe: Fever of 101 or Higher, Inability to urinate, Inability to have a bowel movement, Using more than one pad per hour, Shortness of breath, Chest pain, Calf discomfort, Uncontrolled pain Suture Line Care: Avoid Pulling/Pushing Cleanse incision/area with: Soap & Water Allergies/Adverse Reactions: Allergies ramipril [From Altace] Allergy (Verified 04/13/18 15:24) Swelling Medications to take at Discharge Amlodipine [Norvasc] 2.5 mg PO DAILY 03/18/15 Levothyroxine [Synthroid] 125 mcg PO DAILY 03/18/15 Liothyronine Sodium [Cytomel] 25 mcg PO DAILY 03/18/15 Cholecalciferol (Vitamin D3) [Vitamin D3] 2,000 unit PO DAILY 04/13/18 Ibuprofen 600 mg PO TID PRN #30 tablet 04/20/18 Estradiol [Estrace Vaginal Cream] 1 dose VAGINAL QHS #1 cream.appl 04/21/18 Metoprolol Tartrate [Lopressor (beta akhil)] 50 mg PO DAILY #30 tablet 04/21/18 The following prescriptions were given: Estradiol [Estrace Vaginal Cream] 1 dose VAGINAL QHS #1 cream.appl Metoprolol Tartrate [Lopressor (beta akhil)] 50 mg PO DAILY #30 tablet Ibuprofen 600 mg PO TID PRN #30 tablet PRN Reason: Pain Primary Care Physician: Rose Mary Ocasio MD [Primary Care Provider] - Please follow up with your Primary Care Physician in: 3-5 days Test Results: Test results from this visit will be discussed in further detail at your follow- up appointment, if applicable. Please Follow Up With: Lyndsay Hernandez MD When: May 03
--- NOTE | 2018-04-20 17:54 | DS.PCM_ITS ---
Discharge Date and Diagnosis - Problem List Patient Problems: Active and Suspected Problems Hyponatremia (Acute) Date of Admission: 04/19/18 Date of Discharge: 04/21/18 - Primary Discharge Diagnosis Active and Suspected Problems S/P hysterectomy (Acute) - Secondary Discharge Diagnosis Chronic Problems Gastrocnemius equinus of left lower extremity (Chronic) Enthesopathy of foot (Chronic) Nontraumatic tear of plantar fascia (Chronic) Plantar fasciitis of left foot (Chronic) Hospital Course and Treatment Imaging Results: 04/20/18 13:52 CT Abd [Abdomen/Pelvis W IV Cont ONLY] [CT] Stat STUDY: CT ABDOMEN AND PELVIS WITH CONTRAST REASON FOR EXAM: Female, 57 years old. Low urine output Status post hysterectomy RADIATION DOSAGE (If Supplied By Facility): CTDIvol = ( 19.22 ) mGy, DLP = ( 2014.09 ) mGycm TECHNIQUE: Transaxial images were obtained from the dome of the diaphragm to the symphysis pubis without oral contrast. 100 ml of Isovue 300 contrast was administered. Sagittal and coronal images were reconstructed. Individualized dose optimization techniques were used for this CT. COMPARISON: None. FINDINGS: The visualized lung bases are unremarkable. The visualized portions of the heart are within normal limits. The breast tissue is asymmetric on the left with visualized left breast skin thickening and subtle increased density. Within the mid aspect of the liver there is a focus of low attenuation with peripheral vascularity that measures 2.1 x 1.4 cm which may represent a small hemangioma. Normal gallbladder and extrahepatic biliary system. Normal spleen. Normal pancreas. Normal bilateral adrenal glands. Normal right kidney. Normal left kidney. There is a air-fluid level in the stomach. Normal small intestine. There is a relative decompressed appearance of the colon. There is pneumoperitoneum and extraperitoneal gas as well as gas in the midline umbilical soft tissues and along the fascial planes. There is non-visualization of the appendix. Normal abdominal aorta. Normal inferior vena cava. Gas bubbles in the retroperitoneum. The bladder is distended. There is no evidence of gas bubbles in the bladder. A Sanon catheter is not present. There is a vaginal stump small foci of hyperdensity at the vaginal stump with a few gas bubbles compatible with recent postoperative change. There is no significant free fluid or extraperitoneal fluid. There is absence of the uterus consistent with a prior hysterectomy. There is a residual cystic structure in the right side of the adnexa which may represent an ovary measuring 2.5 x 2.3 cm and in the left adnexa measuring 2.1 x 1.6 cm. There is bilateral flank edema. There are diffuse degenerative changes of the visualized lumbar spine. CT/Abdomen/Pelvis W IV Cont ONLY IMPRESSION: Postoperative changes in the abdomen and pelvis status post hysterectomy with extensive pneumoperitoneum and subcutaneous emphysema as well as gas in the fascial planes, as well as retroperitoneal gas. There is no significant free fluid. The bladder is partially distended partially filling with contrast without evidence of gas bubbles. A Sanon catheter is not seen. Normal bilateral nephrograms, no hydronephrosis. There is a low attenuating structure within the mid aspect of the liver which may represent a cyst or hemangioma is likely neoplasm for which a follow-up MRI or three-phase liver mass CT scan is suggested when appropriate. Asymmetric breast tissue left side breast skin thickening overlying for technique recommend follow-up mammogram ultrasound correlation with history. 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 She underwent a laparoscopic assisted vaginal hysterectomy with bilateral salpingectomy. Her post-operative course was complicated by low urinary output and hyponatremia. A CT Abdomen/Pelvis was performed demonstrating post-operative urinary retention, an incidental liver lesion and left breast thickening. Hospitalist and Nephrology consultation was obtained, fluid restriction placed and Lasix administered with vast improvement of urinary output and hyponatremia. Her post-op course was otherwise uncomplicated. The patient was discharged to home on post-operative day #2. Patient Problems: Active and Suspected Problems Hyponatremia (Acute) - Physical Exam Vital Signs Temp Pulse Resp BP Pulse Ox 97.4 F L 51 L 18 145/43 H 99 04/20/18 13:37 04/20/18 13:37 04/20/18 13:37 04/20/18 13:37 04/20/18 13:37 Oxygen Flow Rate (L/min) 2 Oxygen Delivery Method Room Air Weight: 111.584 kg Body Mass Index (BMI) 44.9 Intake and Output for Last 24 Hours 04/18/18 04/19/18 04/20/18 23:59 23:59 23:59 Intake Total 1999 8361 / 8361 Output Total 150 / 150 1150 / 1150 Balance 1850 / 1850 7211 / 7211 Laboratory Tests Past 24 Hrs 04/20/18 04/20/18 04/20/18 05:14 05:14 08:36 WBC 8.7 RBC 4.17 L Hgb 11.6 L Hct 34.2 L MCV 82.0 MCH 27.8 MCHC 33.9 RDW 14.6 RDW Differential 42.3 Plt Count 211 MPV 10.7 Sodium 127 L 122 L Potassium 3.9 Chloride 92 L Carbon Dioxide 25.0 Anion Gap 10 BUN 12 Creatinine 0.70 Estim Creat Clear Calc 68.44 Est GFR (MDRD) Af Amer 111 Est GFR (MDRD) Non-Af 92 BUN/Creatinine Ratio 17.3 Glucose 124 H Serum Osmolality Calcium 8.3 L B-Natriuretic Peptide Free T4 Free T3 pg/dL Urine Color Urine Clarity Urine pH Ur Specific [place] Urine Protein Urine Glucose (UA) Urine Ketones Urine Occult Blood Urine Nitrite Urine Bilirubin Urine Urobilinogen Ur Leukocyte Esterase Urine RBC Urine WBC Ur Squamous Epith Cells Urine Bacteria Urine Mucus Urine Osmolality Ur Random Sodium 04/20/18 04/20/18 04/20/18 16:15 16:15 16:15 WBC RBC Hgb Hct MCV MCH MCHC RDW RDW Differential Plt Count MPV Sodium Potassium Chloride Carbon Dioxide Anion Gap BUN Creatinine Estim Creat Clear Calc Est GFR (MDRD) Af Amer Est GFR (MDRD) Non-Af BUN/Creatinine Ratio Glucose Serum Osmolality Pending Calcium B-Natriuretic Peptide 136.5 H Free T4 1.20 Free T3 pg/dL 1.7 L Urine Color Urine Clarity Urine pH Ur Specific [place] Urine Protein Urine Glucose (UA) Urine Ketones Urine Occult Blood Urine Nitrite Urine Bilirubin Urine Urobilinogen Ur Leukocyte Esterase Urine RBC Urine WBC Ur Squamous Epith Cells Urine Bacteria Urine Mucus Urine Osmolality Ur Random Sodium 04/20/18 04/20/18 04/20/18 16:15 Unknown Unknown WBC RBC Hgb Hct MCV MCH MCHC RDW RDW Differential Plt Count MPV Sodium Pending Potassium Pending Chloride Pending Carbon Dioxide Pending Anion Gap Pending BUN Pending Creatinine Pending Estim Creat Clear Calc Est GFR (MDRD) Af Amer Pending Est GFR (MDRD) Non-Af Pending BUN/Creatinine Ratio Pending Glucose Pending Serum Osmolality Calcium Pending B-Natriuretic Peptide Free T4 Free T3 pg/dL Urine Color Urine Clarity Urine pH Ur Specific [place] Urine Protein Urine Glucose (UA) Urine Ketones Urine Occult Blood Urine Nitrite Urine Bilirubin Urine Urobilinogen Ur Leukocyte Esterase Urine RBC Urine WBC Ur Squamous Epith Cells Urine Bacteria Urine Mucus Urine Osmolality Pending Ur Random Sodium 54 04/20/18 Unknown WBC RBC Hgb Hct MCV MCH MCHC RDW RDW Differential Plt Count MPV Sodium Potassium Chloride Carbon Dioxide Anion Gap BUN Creatinine Estim Creat Clear Calc Est GFR (MDRD) Af Amer Est GFR (MDRD) Non-Af BUN/Creatinine Ratio Glucose Serum Osmolality Calcium B-Natriuretic Peptide Free T4 Free T3 pg/dL Urine Color Yellow Urine Clarity Clear Urine pH 6.5 Ur Specific [place] 1.010 Urine Protein Negative Urine Glucose (UA) Normal Urine Ketones Negative Urine Occult Blood 250 H Urine Nitrite Negative Urine Bilirubin Negative Urine Urobilinogen Normal Ur Leukocyte Esterase Negative Urine RBC 5-10 SEEN Urine WBC 0 SEEN Ur Squamous Epith Cells 0 SEEN Urine Bacteria 0 SEEN Urine Mucus 0 SEEN Urine Osmolality Ur Random Sodium Discharge Diet: No Restrictions Discharge Activity: Return to Normal Activity, May not drive while taking narcotic pain medications., May Shower, - - No tub bath, no douching, no i ntercourse. May resume sexual activity in: 6 weeks Call your doctor if your incision/area has: Continuous Slow Oozing, Sudden Increased Bleeding, Increased Pain/ Swelling, Increased Redness Call your doctor if you observe: Fever of 101 or Higher, Inability to urinate, Inability to have a bowel movement, Using more than one pad per hour, Shortness of breath, Chest pain, Calf discomfort, Uncontrolled pain Suture Line Care: Avoid Pulling/Pushing Cleanse incision/area with: Soap & Water Home Medications: Medications to take at Discharge Amlodipine [Norvasc] 2.5 mg PO DAILY 03/18/15 Levothyroxine [Synthroid] 125 mcg PO DAILY 03/18/15 Liothyronine Sodium [Cytomel] 25 mcg PO DAILY 03/18/15 Cholecalciferol (Vitamin D3) [Vitamin D3] 2,000 unit PO DAILY 04/13/18 Ibuprofen 600 mg PO TID PRN #30 tablet 04/20/18 Estradiol [Estrace Vaginal Cream] 1 dose VAGINAL QHS #1 cream.appl 04/21/18 Metoprolol Tartrate [Lopressor (beta akhil)] 50 mg PO DAILY #30 tablet 04/21/18 Following Prescrptions Were Given to Patient: Estradiol [Estrace Vaginal Cream] 1 dose VAGINAL QHS #1 cream.appl Metoprolol Tartrate [Lopressor (beta akhil)] 50 mg PO DAILY #30 tablet Ibuprofen 600 mg PO TID PRN #30 tablet PRN Reason: Pain Primary Care Physician: Rose Mary Ocasio MD [Primary Care Provider] - Please Follow Up With: Rose Mary Ocasio MD When: 3-5 days Please Follow Up With: Lyndsay Hernandez MD When: 1-2 weeks Medical Necessity - Tobacco Use Smoking Status: Never smoker Meaningful Use Info Meaningful Use Diagnoses (Choose all that apply): None applicable
[2018-04-20 18:08] LABS: Anion Gap 10 (5-15); BUN 13 mg/dL (7-18); BUN/Creat Ratio 18.4 RATIO (10-20); Calcium,Total 8.2 mg/dL (8.5-10.1); Chloride 83 mmol/L (98-107); Creatinine, Serum 0.71 mg/dL (0.55-1.02); EST Glomerular Filtration Rate 90 mL/min (>60); Est Glom Filt Rate - Afr Amer 109 mL/min (>60); Estimated Creatinine Clearance 67.48 ml/min; Glucose 100 mg/dL (74-106); Potassium 3.7 mmol/L (3.5-5.1); Sodium Level 118 mmol/L (136-145)
[2018-04-20 19:35] LABS: Anion Gap 12 (5-15); BUN 13 mg/dL (7-18); BUN/Creat Ratio 14.3 RATIO (10-20); Calcium,Total 8.1 mg/dL (8.5-10.1); Chloride 85 mmol/L (98-107); Creatinine, Serum 0.91 mg/dL (0.55-1.02); EST Glomerular Filtration Rate 67 mL/min (>60); Est Glom Filt Rate - Afr Amer 81 mL/min (>60); Estimated Creatinine Clearance 52.65 ml/min; Glucose 115 mg/dL (74-106); Potassium 3.6 mmol/L (3.5-5.1); Sodium Level 121 mmol/L (136-145)
[2018-04-20 20:09] VITALS: BP 114/72; PULSE 48; RESP 16; TEMP 36.9; O2SAT 96
[2018-04-20] MEDS: Enoxaparin 40 MG/0.4 ML Syringe SC (21:27)
[2018-04-20] MEDS: amLODIPine 2.5 MG Tablet PO (21:27)
[2018-04-20 23:23] LABS: Anion Gap 9 (5-15); BUN 16 mg/dL (7-18); BUN/Creat Ratio 17.3 RATIO (10-20); Chloride 87 mmol/L (98-107); Creatinine, Serum 0.93 mg/dL (0.55-1.02); EST Glomerular Filtration Rate 66 mL/min (>60); Est Glom Filt Rate - Afr Amer 80 mL/min (>60); Estimated Creatinine Clearance 51.51 ml/min; Glucose 108 mg/dL (74-106); Potassium 3.5 mmol/L (3.5-5.1); Sodium Level 122 mmol/L (136-145)
[2018-04-21 03:21] VITALS: BP 150/72; PULSE 45; RESP 18; TEMP 36.4; O2SAT 99
[2018-04-21 04:22] LABS: Anion Gap 10 (5-15); BUN 18 mg/dL (7-18); BUN/Creat Ratio 20.4 RATIO (10-20); Calcium,Total 8.1 mg/dL (8.5-10.1); Chloride 89 mmol/L (98-107); Creatinine, Serum 0.88 mg/dL (0.55-1.02); EST Glomerular Filtration Rate 70 mL/min (>60); Est Glom Filt Rate - Afr Amer 84 mL/min (>60); Estimated Creatinine Clearance 54.44 ml/min; Glucose 88 mg/dL (74-106); Potassium 3.6 mmol/L (3.5-5.1); Sodium Level 126 mmol/L (136-145)
[2018-04-21] MEDS: Levothyroxine 125 MCG Tablet PO (05:32)
[2018-04-21 07:25] VITALS: O2SAT 98
--- NOTE | 2018-04-21 08:03 | CON.PCM_ITS ---
Consultation - Renal 04/21/18 PCP/ Referring MD: Requesting physician: Dr Sears Primary care physician: Rose Mary Ocasio MD Reason for Consultation:: hyponatremia - History of Present Illness History of Present Illness: The patient is a 57 year old obese F admitted for lap hysterctomy for post menopausal bleeding. She developed hypotension with drop in urine output. She received 8L fluid resuscitation over 24h period. Sodium dropped from 127 to 118. She received lasix and sodium improved to 126. Baseline sodium 138 on 04/12/18. She is on HCTZ at home. She has chronic bradycardia. She has no complaints of d izziness, headache, unsteady gait. Denied nausea, chest pain, SOB or edema. She had a BM and ambulated halls earlier today. She is anxious to go home. - Allergies Allergies: Allergies ramipril [From Altace] Allergy (Verified 04/13/18 15:24) Swelling - Current Medications Current Medications: Current Medications Enoxaparin Sodium (Lovenox) 40 mg SC DAILY@2200 [facility] Last Admin: 04/20/18 21:27 Dose: 40 mg Furosemide (Lasix) 40 mg IV BID@1000,1800 [facility] Hydromorphone HCl (Dilaudid Inj) 0.5 - 1 mg IV Q3H PRN PRN PRN Reason: Moderate-Severe Pain (4-10/10) Levothyroxine Sodium (Synthroid) 125 mcg PO DAILY@0600 [facility] Last Admin: 04/21/18 05:32 Dose: 125 mcg Liothyronine Sodium (Cytomel) 25 mcg PO DAILY [facility] Last Admin: 04/20/18 07:40 Dose: 25 mcg Ondansetron HCl (Zofran) 4 mg IV Q4H PRN PRN PRN Reason: NAUSEA Oxycodone HCl (Oxyir) 5 mg PO Q6H PRN PRN PRN Reason: SEVERE PAIN (6-10/10) Simethicone (Mylicon) 80 mg PO [facility] Last Admin: 04/20/18 21:26 Dose: 80 mg Sodium Chloride () 5 - 15 ml IV UD PRN PRN Reason: SALINE FLUSH Last Admin: 04/20/18 05:54 Dose: 10 ml - Past Medical History Past Medical History (Chronic Problems): Chronic Problems Bradycardia (Chronic) Hypothyroid (Chronic) Gastrocnemius equinus of left lower extremity (Chronic) Enthesopathy of foot (Chronic) Nontraumatic tear of plantar fascia (Chronic) Plantar fasciitis of left foot (Chronic) - Social History Smoking Status: Never smoker Review of Systems Constitutional: Denies: Anorexia, Chills, Fever, Weakness Eyes: Denies: Blurred vision HEENT: Denies: Head Aches Cardiovascular: Reports: - - chronic bradycardia.. Denies: Chest Pain, Edema, Syncope Respiratory: Denies: Cough, Shortness of Breath Gastrointestinal: Denies: Abdominal Pain, Nausea Genitourinary: Reports: - - improved urine output with lasix. Denies: Dysuria Neurological: Denies: Balance problems, Tremor Hematologic/ Lymphatic: Denies: Hx of blood clot Patient Problems: Active and Suspected Problems Hyponatremia (Acute) S/P hysterectomy (Acute) - Physical Exam General: Alert, Oriented x3, Cooperative HEENT: PERRLA, EOMI Oral: Moist Mucosa Neck: Supple Lungs: Clear to auscultation Cardiovascular: Regular rate Abdomen: Bowel Sounds Present, Soft, Non Tender, Obese Extremities: No edema Skin: No rashes Neurological: Cranial nerves II-XII grossly intact Psych/Mental Status: Normal Affect, Appropriate, Alert and oriented to time, place, person, mood and affect Vital Signs Temp Pulse Resp BP Pulse Ox 97.6 F L 45 L 18 150/72 H 98 04/21/18 03:21 04/21/18 03:21 04/21/18 03:21 04/21/18 03:21 04/21/18 07:25 Oxygen Flow Rate (L/min) 2 Oxygen Delivery Method Room Air Weight: 111.584 kg Body Mass Index (BMI) 44.9 Intake and Output for Last 24 Hours 04/19/18 04/20/18 04/21/18 23:59 23:59 23:59 Intake Total 1999 8361 / 8361 300 / 300 Output Total 150 / 150 1150 / 1150 3500 / 3500 Balance 1850 / 1850 7211 / 7211 -3200 / -3200 Laboratory Tests Past 24 Hrs 04/20/18 04/20/18 04/20/18 08:36 16:15 16:15 Sodium 122 L Potassium Chloride Carbon Dioxide Anion Gap BUN Creatinine Estim Creat Clear Calc Est GFR (MDRD) Af Amer Est GFR (MDRD) Non-Af BUN/Creatinine Ratio Glucose Serum Osmolality 246 L Calcium B-Natriuretic Peptide 136.5 H Free T4 Free T3 pg/dL Urine Color Urine Clarity Urine pH Ur Specific [place] Urine Protein Urine Glucose (UA) Urine Ketones Urine Occult Blood Urine Nitrite Urine Bilirubin Urine Urobilinogen Ur Leukocyte Esterase Urine RBC Urine WBC Ur Squamous Epith Cells Urine Bacteria Urine Mucus Urine Osmolality Ur Random Sodium 04/20/18 04/20/18 04/20/18 16:15 16:15 19:12 Sodium 118 L* 121 L Potassium 3.7 3.6 Chloride 83 L 85 L Carbon Dioxide 25.0 24.0 Anion Gap 10 12 BUN 13 13 Creatinine 0.71 0.91 Estim Creat Clear Calc 67.48 52.65 Est GFR (MDRD) Af Amer 109 81 Est GFR (MDRD) Non-Af 90 67 BUN/Creatinine Ratio 18.4 14.3 Glucose 100 115 H Serum Osmolality Calcium 8.2 L 8.1 L B-Natriuretic Peptide Free T4 1.20 Free T3 pg/dL 1.7 L Urine Color Urine Clarity Urine pH Ur Specific [place] Urine Protein Urine Glucose (UA) Urine Ketones Urine Occult Blood Urine Nitrite Urine Bilirubin Urine Urobilinogen Ur Leukocyte Esterase Urine RBC Urine WBC Ur Squamous Epith Cells Urine Bacteria Urine Mucus Urine Osmolality Ur Random Sodium 04/20/18 04/20/18 04/20/18 23:00 Unknown Unknown Sodium 122 L Potassium 3.5 Chloride 87 L Carbon Dioxide 26.0 Anion Gap 9 BUN 16 Creatinine 0.93 Estim Creat Clear Calc 51.51 Est GFR (MDRD) Af Amer 80 Est GFR (MDRD) Non-Af 66 BUN/Creatinine Ratio 17.3 Glucose 108 H Serum Osmolality Calcium 8.0 L B-Natriuretic Peptide Free T4 Free T3 pg/dL Urine Color Urine Clarity Urine pH Ur Specific [place] Urine Protein Urine Glucose (UA) Urine Ketones Urine Occult Blood Urine Nitrite Urine Bilirubin Urine Urobilinogen Ur Leukocyte Esterase Urine RBC Urine WBC Ur Squamous Epith Cells Urine Bacteria Urine Mucus Urine Osmolality 230 Ur Random Sodium 54 04/20/18 04/21/18 04/21/18 Unknown 02:50 07:45 Sodium 126 L Pending Potassium 3.6 Pending Chloride 89 L Pending Carbon Dioxide 27.0 Pending Anion Gap 10 Pending BUN 18 Pending Creatinine 0.88 Pending Estim Creat Clear Calc 54.44 Est GFR (MDRD) Af Amer 84 Pending Est GFR (MDRD) Non-Af 70 Pending BUN/Creatinine Ratio 20.4 H Pending Glucose 88 Pending Serum Osmolality Calcium 8.1 L Pending B-Natriuretic Peptide Free T4 Free T3 pg/dL Urine Color Yellow Urine Clarity Clear Urine pH 6.5 Ur Specific [place] 1.010 Urine Protein Negative Urine Glucose (UA) Normal Urine Ketones Negative Urine Occult Blood 250 H Urine Nitrite Negative Urine Bilirubin Negative Urine Urobilinogen Normal Ur Leukocyte Esterase Negative Urine RBC 5-10 SEEN Urine WBC 0 SEEN Ur Squamous Epith Cells 0 SEEN Urine Bacteria 0 SEEN Urine Mucus 0 SEEN Urine Osmolality Ur Random Sodium Clinical Impression(s) from Imaging Studies Abdomen/Pelvis CT 04/20/18 13:52 IMPRESSION: Postoperative changes in the abdomen and pelvis status post hysterectomy with extensive pneumoperitoneum and subcutaneous emphysema as well as gas in the fascial planes, as well as retroperitoneal gas. There is no significant free fluid. The bladder is partially distended partially filling with contrast without evidence of gas bubbles. A Sanon catheter is not seen. Normal bilateral nephrograms, no hydronephrosis. There is a low attenuating structure within the mid aspect of the liver which may represent a cyst or hemangioma is likely neoplasm for which a follow-up MRI or three-phase liver mass CT scan is suggested when appropriate. Asymmetric breast tissue left side breast skin thickening overlying for technique recommend follow-up mammogram ultrasound correlation with history. Electronically Signed: Lillian Polo MD at 16:12 EST Tel , Service support , Chest X-Ray 04/20/18 14:59 IMPRESSION: Nonspecific trace interstitial prominence. Could consider minimal vascular congestion. Mild cardiomegaly. Electronically Signed: Lillian Polo MD at 16:01 EST Tel , Service support , Assessment/Plan All Active Problems Hyponatremia (Acute) S/P hysterectomy (Acute) Endometrial hyperplasia (Acute) Postmenopausal bleeding (Acute) 1. Acute hyponatremia suspect due to rapid volume expansion 8L fluid for hypotensive episode with poor urine output. CT abdomen no hydronephrosis, normal kidneys. Sodium normal at 139 on 04/12 dropped to 118 yesterday improved to 126 with lasix today. Currently asymptomatic. Hold HCTZ until hyponatremia resolved. Advise to check labs this week and follow up in office with pcp. F/U with me if low sodium persists. 2. Chronic bradycardia asymptomatic. Suggest to reduce dose metoprolol. F/U with PCP 3. Hypothyroidism on hormone replacement. Managed by PCP 4. Post menopausal bleeding s/p hysterectomy. 5. HTN stable 6. morbid obesity. DW hospitalist last night in assisting management of pt and today.
[2018-04-21 08:21] VITALS: BP 112/64; PULSE 52; RESP 16; TEMP 36.7; O2SAT 96
--- NOTE | 2018-04-21 08:43 | PCM.PN.OB ---
Patient Problems: Active and Suspected Problems Hyponatremia (Acute) S/P hysterectomy (Acute) Subjective: No issues overnight. Feels well, denies chest pain, shortness of breath, constipation, vaginal bleeding, pain. Passing flatus, had a bowel movement. Objective: AVSS - Physical Exam General: Alert, Oriented x3, Cooperative, No apparent distress HEENT: Atraumatic, Normocephalic Lungs: Clear to auscultation, Normal air movement Cardiovascular: Regular rate, Regular Rhythm, Normal S1, Normal S2 Abdomen: Bowel Sounds Present, Soft, Non Tender, Non-Distended Extremities: No edema, No Calf Tenderness Neurological: Neuro grossly intact Psych/Mental Status: Normal Affect, Appropriate, Alert and oriented to time, place, person, mood and affect Vital Signs Temp Pulse Resp BP Pulse Ox 98.0 F 52 L 16 112/64 96 04/21/18 08:21 04/21/18 08:21 04/21/18 08:21 04/21/18 08:21 04/21/18 08:21 Oxygen Flow Rate (L/min) 2 Oxygen Delivery Method Room Air Weight: 111.584 kg Body Mass Index (BMI) 44.9 Intake and Output for Last 24 Hours 04/19/18 04/20/18 04/21/18 23:59 23:59 23:59 Intake Total 1999 / 1999 8361 / 8361 300 / 300 Output Total 150 / 150 1150 / 1150 3500 / 3500 Balance 1850 / 1850 7211 / 7211 -3200 / -3200 Laboratory Tests Past 24 Hrs 04/20/18 04/20/18 04/20/18 08:36 16:15 16:15 Sodium 122 L Potassium Chloride Carbon Dioxide Anion Gap BUN Creatinine Estim Creat Clear Calc Est GFR (MDRD) Af Amer Est GFR (MDRD) Non-Af BUN/Creatinine Ratio Glucose Serum Osmolality 246 L Calcium B-Natriuretic Peptide 136.5 H Free T4 Free T3 pg/dL Urine Color Urine Clarity Urine pH Ur Specific [place] Urine Protein Urine Glucose (UA) Urine Ketones Urine Occult Blood Urine Nitrite Urine Bilirubin Urine Urobilinogen Ur Leukocyte Esterase Urine RBC Urine WBC Ur Squamous Epith Cells Urine Bacteria Urine Mucus Urine Osmolality Ur Random Sodium 04/20/18 04/20/18 04/20/18 16:15 16:15 19:12 Sodium 118 L* 121 L Potassium 3.7 3.6 Chloride 83 L 85 L Carbon Dioxide 25.0 24.0 Anion Gap 10 12 BUN 13 13 Creatinine 0.71 0.91 Estim Creat Clear Calc 67.48 52.65 Est GFR (MDRD) Af Amer 109 81 Est GFR (MDRD) Non-Af 90 67 BUN/Creatinine Ratio 18.4 14.3 Glucose 100 115 H Serum Osmolality Calcium 8.2 L 8.1 L B-Natriuretic Peptide Free T4 1.20 Free T3 pg/dL 1.7 L Urine Color Urine Clarity Urine pH Ur Specific [place] Urine Protein Urine Glucose (UA) Urine Ketones Urine Occult Blood Urine Nitrite Urine Bilirubin Urine Urobilinogen Ur Leukocyte Esterase Urine RBC Urine WBC Ur Squamous Epith Cells Urine Bacteria Urine Mucus Urine Osmolality Ur Random Sodium 04/20/18 04/20/18 04/20/18 23:00 Unknown Unknown Sodium 122 L Potassium 3.5 Chloride 87 L Carbon Dioxide 26.0 Anion Gap 9 BUN 16 Creatinine 0.93 Estim Creat Clear Calc 51.51 Est GFR (MDRD) Af Amer 80 Est GFR (MDRD) Non-Af 66 BUN/Creatinine Ratio 17.3 Glucose 108 H Serum Osmolality Calcium 8.0 L B-Natriuretic Peptide Free T4 Free T3 pg/dL Urine Color Urine Clarity Urine pH Ur Specific [place] Urine Protein Urine Glucose (UA) Urine Ketones Urine Occult Blood Urine Nitrite Urine Bilirubin Urine Urobilinogen Ur Leukocyte Esterase Urine RBC Urine WBC Ur Squamous Epith Cells Urine Bacteria Urine Mucus Urine Osmolality 230 Ur Random Sodium 54 04/20/18 04/21/18 04/21/18 Unknown 02:50 07:45 Sodium 126 L Pending Potassium 3.6 Pending Chloride 89 L Pending Carbon Dioxide 27.0 Pending Anion Gap 10 Pending BUN 18 Pending Creatinine 0.88 Pending Estim Creat Clear Calc 54.44 Est GFR (MDRD) Af Amer 84 Pending Est GFR (MDRD) Non-Af 70 Pending BUN/Creatinine Ratio 20.4 H Pending Glucose 88 Pending Serum Osmolality Calcium 8.1 L Pending B-Natriuretic Peptide Free T4 Free T3 pg/dL Urine Color Yellow Urine Clarity Clear Urine pH 6.5 Ur Specific [place] 1.010 Urine Protein Negative Urine Glucose (UA) Normal Urine Ketones Negative Urine Occult Blood 250 H Urine Nitrite Negative Urine Bilirubin Negative Urine Urobilinogen Normal Ur Leukocyte Esterase Negative Urine RBC 5-10 SEEN Urine WBC 0 SEEN Ur Squamous Epith Cells 0 SEEN Urine Bacteria 0 SEEN Urine Mucus 0 SEEN Urine Osmolality Ur Random Sodium Medical Necessity - Tobacco Use Smoking Status: Never smoker Assessment/Plan All Active Problems Hyponatremia (Acute) S/P hysterectomy (Acute) Endometrial hyperplasia (Acute) Postmenopausal bleeding (Acute) 57yo POD#2 s/p LAVH, adhesiolysis, bilateral salpingectomy with resolving hyponatremia -No post-operative issue -Plan for d/c home today pending renal consultation
[2018-04-21 08:50] LABS: Anion Gap 9 (5-15); BUN 16 mg/dL (7-18); BUN/Creat Ratio 20.6 RATIO (10-20); Calcium,Total 8.3 mg/dL (8.5-10.1); Chloride 90 mmol/L (98-107); Creatinine, Serum 0.78 mg/dL (0.55-1.02); EST Glomerular Filtration Rate 81 mL/min (>60); Est Glom Filt Rate - Afr Amer 98 mL/min (>60); Estimated Creatinine Clearance 61.42 ml/min; Glucose 83 mg/dL (74-106); Potassium 3.7 mmol/L (3.5-5.1); Sodium Level 126 mmol/L (136-145)
[2018-04-21] MEDS: 0.9% NaCl Peripheral Flush Adult/Peds IV (09:17)
[2018-04-21] MEDS: Furosemide 40 MG/4 ML Vial IV (09:18)
--- NOTE | 2018-04-21 16:37 | PN_ITS ---
Patient Problems: Active and Suspected Problems Hyponatremia (Acute) Subjective: Patient was seen and examined earlier today, I discussed her care with nephrology today and also with INVENTORY COORDINATOR. Patient's sodium today was 126 again. Patient is alert, she is oriented x3, she does not appear to be in any distress. I discussed her lab results with nephrology today and nephrology felt that the patient could be discharged home without her hydrochlorothiazide. I had also discussed the patient's impending discharge with the patient's BEHAVIORAL HEALTH TECHNICIAN physician today before I discharged her. - Physical Exam General: Alert, Oriented x3, Cooperative, No apparent distress, Well developed HEENT: Atraumatic, PERRLA, EOMI, Normocephalic Oral: Moist Mucosa Neck: Supple, No Nuchal Rigidity, Trachea Midline, Thyroid Normal Size and Texture Lungs: Clear to auscultation, Normal air movement, No rhonchi, No wheeze, No rales Cardiovascular: Regular rate, Regular Rhythm, Normal S1, Normal S2, No murmurs, No Ectopic Activity Abdomen: Bowel Sounds Present, Soft, Non-Distended Extremities: No clubbing, No cyanosis, No edema, Capillary Refill Less than 3 Seconds Skin: No rashes, No breakdown Musculoskeletal: No Tenderness to Palpation of Joints or Extremities Neurological: Cranial nerves II-XII grossly intact, Neuro grossly intact Psych/Mental Status: Normal Affect, Appropriate, Alert and oriented to time, place, person, mood and affect Vital Signs Temp Pulse Resp BP Pulse Ox 98.0 F 52 L 16 112/64 96 04/21/18 08:21 04/21/18 08:21 04/21/18 08:21 04/21/18 08:21 04/21/18 08:21 Oxygen Flow Rate (L/min) 2 Oxygen Delivery Method Room Air Weight: 111.584 kg Body Mass Index (BMI) 44.9 Intake and Output for Last 24 Hours 04/19/18 04/20/18 04/21/18 23:59 23:59 23:59 Intake Total 1999 / 1999 8361 / 8361 300 / 300 Output Total 150 / 150 1150 / 1150 3500 / 3500 Balance 1850 / 1850 7211 / 7211 -3200 / -3200 Laboratory Tests Past 24 Hrs 04/20/18 04/20/18 04/20/18 16:15 16:15 16:15 Sodium Potassium Chloride Carbon Dioxide Anion Gap BUN Creatinine Estim Creat Clear Calc Est GFR (MDRD) Af Amer Est GFR (MDRD) Non-Af BUN/Creatinine Ratio Glucose Serum Osmolality 246 L Calcium B-Natriuretic Peptide 136.5 H Free T4 1.20 Free T3 pg/dL 1.7 L Urine Color Urine Clarity Urine pH Ur Specific Phil Campbell Urine Protein Urine Glucose (UA) Urine Ketones Urine Occult Blood Urine Nitrite Urine Bilirubin Urine Urobilinogen Ur Leukocyte Esterase Urine RBC Urine WBC Ur Squamous Epith Cells Urine Bacteria Urine Mucus Urine Osmolality Ur Random Sodium 18 18 12 16:15 19:12 23:00 Sodium 118 L* 121 L 122 L Potassium 3.7 3.6 3.5 Chloride 83 L 85 L 87 L Carbon Dioxide 25.0 24.0 26.0 Anion Gap 10 12 9 BUN 13 13 16 Creatinine 0.71 0.91 0.93 Estim Creat Clear Calc 67.48 52.65 51.51 Est GFR (MDRD) Af Am 109 81 80 Est GFR (MDRD) Non-Af 90 67 66 BUN/Creatinine Ratio 18.4 14.3 17.3 Glucose 100 115 H 108 H Serum Osmolality Calcium 8.2 L 8.1 L 8.0 L B-Natriuretic Peptide Free T4 Free T3 pg/dL Urine Color Urine Clarity Urine pH Ur Specific Phil Campbell Urine Protein Urine Glucose (UA) Urine Ketones Urine Occult Blood Urine Nitrite Urine Bilirubin Urine Urobilinogen Ur Leukocyte Esterase Urine RBC Urine WBC Ur Squamous Epith Cells Urine Bacteria Urine Mucus Urine Osmolality Ur Random Sodium 04/20/18 04/20/18 04/20/18 Unknown Unknown Unknown Sodium Potassium Chloride Carbon Dioxide Anion Gap BUN Creatinine Estim Creat Clear Calc Est GFR (MDRD) Af Amer Est GFR (MDRD) Non-Af BUN/Creatinine Ratio Glucose Serum Osmolality Calcium B-Natriuretic Peptide Free T4 Free T3 pg/dL Urine Color Yellow Urine Clarity Clear Urine pH 6.5 Ur Specific Phil Campbell 1.010 Urine Protein Negative Urine Glucose (UA) Normal Urine Ketones Negative Urine Occult Blood 250 H Urine Nitrite Negative Urine Bilirubin Negative Urine Urobilinogen Normal Ur Leukocyte Esterase Negative Urine RBC 5-10 SEEN Urine WBC 0 SEEN Ur Squamous Epith Cells 0 SEEN Urine Bacteria 0 SEEN Urine Mucus 0 SEEN Urine Osmolality 230 Ur Random Sodium 54 04/21/18 04/21/18 02:50 07:45 Sodium 126 L 126 L Potassium 3.6 3.7 Chloride 89 L 90 L Carbon Dioxide 27.0 27.0 Anion Gap 10 9 BUN 18 16 Creatinine 0.88 0.78 Estim Creat Clear Calc 54.44 61.42 Est GFR (MDRD) Af Amer 84 98 Est GFR (MDRD) Non-Af 70 81 BUN/Creatinine Ratio 20.4 H 20.6 H Glucose 88 83 Serum Osmolality Calcium 8.1 L 8.3 L B-Natriuretic Peptide Free T4 Free T3 pg/dL Urine Color Urine Clarity Urine pH Ur Specific Phil Campbell Urine Protein Urine Glucose (UA) Urine Ketones Urine Occult Blood Urine Nitrite Urine Bilirubin Urine Urobilinogen Ur Leukocyte Esterase Urine RBC Urine WBC Ur Squamous Epith Cells Urine Bacteria Urine Mucus Urine Osmolality Ur Random Sodium Medical Necessity - Tobacco Use Smoking Status: Never smoker Assessment/Plan All Active Problems Hyponatremia (Acute) S/P hysterectomy (Acute) Endometrial hyperplasia (Acute) Postmenopausal bleeding (Acute) #1 hyponatremia-secondary to volume expansion, again patient will be discharged home without her hydrochlorothiazide, she is to have a BMP performed next Monday at her PCPs office-I instructed the patient to do so. I also instructed that if the patient's lab was not improved next week that she was to see Dr. Chen as an outpatient. She was to discuss this with her PCP. #2 hypertension-patient was taking Lopressor as an outpatient, she is to resume her dosage of Lopressor #3 hypothyroidism Code Visit Inpatient E&M: 00655 Subs Hosp L2
== END 2018-04-21 10:23 | disposition home or self-care (01) ==
LOC: SDC 04-20 09:25
PROVIDERS: Anesthesiology; Internal Medicine Nephrology; Student in an Organized Health Care Education/Training Program; Admitting Provider Obstetrics & Gynecology; Family Provider Family Medicine; PCP Family Medicine; Referring Provider Obstetrics & Gynecology; Visit Provider Internal Medicine
PROC: 0UT9FZZ Resection of Uterus, Via Natural or Artificial Opening With Percutaneous Endoscopic Assistance (ICD-10-PCS; CPT 58552; principal; 2018-04-19 12:05)
DX: D25.2 Subserosal leiomyoma of uterus (principal); N85.01 Benign endometrial hyperplasia; N95.0 Postmenopausal bleeding; N83.8 Other noninflammatory disorders of ovary, fallopian tube and broad ligament; Z79.899 Other long term (current) drug therapy; I10 Essential (primary) hypertension; E03.9 Hypothyroidism, unspecified; R00.1 Bradycardia, unspecified; E87.1 Hypo-osmolality and hyponatremia; E66.01 Morbid (severe) obesity due to excess calories; Z68.42 Body mass index [BMI] 45.0-49.9, adult; Z71.3 Dietary counseling and surveillance
CPT/HCPCS: 00940; 58552; 36415; 71046; 74177; 80048; 81001; 82962; 83880; 83930; 83935; 84295; 84300; 84439; 84443; 84481; 85027; 85610; 85730; 86850; 86900; 88307; 93005; 96361; 96372; 96374; 96375; 96376; 99218; J7030; J7050; J7120; Q9967; A4216; C1760; G0378; G0379; J1940; J2405

== ENCOUNTER → 2018-04-23 12:16 | Outpatient (CLI) | payer OTHER, SELFPAY ==
[2018-04-19 17:20] VITALS: BMI 44.9
[2018-04-23 13:37] LABS: Anion Gap 7 (5-15); BUN 13 mg/dL (7-18); BUN/Creat Ratio 23.3 RATIO (10-20); Calcium,Total 8.6 mg/dL (8.5-10.1); Chloride 105 mmol/L (98-107); Creatinine, Serum 0.56 mg/dL (0.55-1.02); EST Glomerular Filtration Rate 118 mL/min (>60); Est Glom Filt Rate - Afr Amer 143 mL/min (>60); Glucose 86 mg/dL (74-106); Potassium 4.2 mmol/L (3.5-5.1); Sodium Level 139 mmol/L (136-145)
== END ==
PROVIDERS: Family Provider Family Medicine; PCP Family Medicine; Visit Provider Family Medicine
DX: E87.1 Hypo-osmolality and hyponatremia (principal)
CPT/HCPCS: 36415; 80048

== ENCOUNTER → 2018-05-11 12:33 | Outpatient (CLI) | payer OTHER, SELFPAY ==
[2018-04-19 17:20] VITALS: BMI 44.9
--- NOTE | 2018-05-11 13:00 | MRI_ITS ---
STUDY: MRI ABDOMEN WITH AND WITHOUT CONTRAST REASON FOR EXAM: Female, 57 years old. Liver lesion. Abnormal finding on CT scan. TECHNIQUE: Standardized fat and water weighted pulse sequences were obtained in all 3 orthogonal planes post contrast administration. 12 ml of Feridex contrast material was administered intravenously for the contrast portion of the examination. COMPARISON: CT abdomen and pelvis 04/20/2018. Low-density focus in the central right liver. FINDINGS: Body wall soft tissues: No acute process. Osseous structures: No acute process. Inferior chest: No acute process. Spleen: Normal. Adrenal glands: Normal. Kidneys: Normal. Retroperitoneum: Normal. Vasculature: Normal. Pancreas: Mild atrophy, no ductal ectasia or suspicious focal lesion. Stomach and bowel: Evaluated portions are unremarkable. Liver: Liver size is normal. There is no apparent hepatic steatosis. Single hepatic lesion. Within the central right liver there is an oval circumscribed 1.8 cm focus, homogeneous central T2 hyperintensity, homogeneous central T1 hypointensity, exhibiting characteristic benign enhancement pattern of hepatic hemangioma. No suspicious features. MRI/MRI Abd WITH and W/O Contrast IMPRESSION: Benign hepatic hemangioma. Electronically Signed: Navdeep Dumont MD at 17:20 EST Tel , Service support ,
== END ==
PROVIDERS: Family Provider Family Medicine; PCP Family Medicine; Referring Provider Family Medicine; Visit Provider Family Medicine
DX: K76.9 Liver disease, unspecified (principal)
CPT/HCPCS: 74183; A9585

== ENCOUNTER → 2019-01-04 08:44 | Outpatient (CLI) | payer OTHER, SELFPAY ==
[2018-04-19 17:20] VITALS: BMI 44.9
--- NOTE | 2019-01-04 08:47 | BI_ITS ---
MAMMOGRAPHY - BILATERAL SCREENING 3-D TOMOSYNTHESIS REASON FOR EXAM: Female, 58 years old. Bilateral Screening 3-D tomosynthesis PERTINENT HISTORY: No significant family history. TECHNIQUE: 2-D mammograms and 3-D Tomosynthesis of the breast (s) were performed. CAD was performed. COMPARISON: 12/27/2017, 09/27/2016 FINDINGS: The breast composition is composed of scattered fibroglandular density. Scattered benign calcifications are seen. No dense spiculated masses or suspicious microcalcifications are identified. No architectural distortion is identified. There is no skin thickening or retraction. There has been no significant change since the prior study. BI/SCREEN MAMM (CAD) W/ADITI BILAT IMPRESSION: No mammographic signs of malignancy. Routine yearly mammograms recommended. ASSESSMENT CATEGORY: BIRADS Category 2: Benign. A letter regarding these results will be sent to the patient by the facility within 30 days. FOLLOW UP RECOMMENDATION: Yearly follow up mammogram recommended. (A) Approximately 10% of breast cancers are not detected by mammography. A normal mammogram should not delay biopsy of a clinically suspicious abnormality. Electronically Signed: Ap Richardson MD at 16:49 EDT Tel [phone], Service support ,
== END ==
PROVIDERS: Family Provider Family Medicine; PCP Family Medicine; Referring Provider Family Medicine; Visit Provider Family Medicine
DX: Z12.31 Encounter for screening mammogram for malignant neoplasm of breast (principal)
CPT/HCPCS: 77063; 77067

== ENCOUNTER 2019-04-17 15:00 | Outpatient (RCR) | payer OTHER, SELFPAY ==
[2018-04-19 17:20] VITALS: BMI 44.9
--- NOTE | 2019-03-04 14:21 | HP.PTEVAL_ITS ---
Patient's Visit Information ROSANNE MCCLAIN is a 58 year old F referred to Physical Therapy by Oneil Cruz MD with a diagnosis of L achilles tendoitis. Date of Evaluation: 03/04/19 Physical Therapist: COY Staton - Visit Plan Frequency: 2-3x /Week Duration: 4-6 Weeks Plan: 2-3X/ week for 4-6 weeks for US, deep tissue MT to peroneal tendon the L, stretching of the L achilles, strengthening of the L ankle, balance and proprioception, gait training with HEP - Subjective Findings: This all started in December and has been walking 3 miles a day.... she was walking the dog one day and stopped because the dog stopped and then the first step she was like ow and kept walking on it until she saw the Dr 2 weeks ago. She feels that her ankle was painful when she stepped and he did not address that. The achilles bothers her but not as much as infront of the ankle bone and under the ankle bone. Her ankle feels better in the boot and she wears it most of the day. She will get a slight ache when laying in bed but most of the time the pain is only there with movment. No N&T and no swelling. She had PF surgery twice on the L ankle.... Pts goal is to be good to walk in [facility]. She has cut her walking back to just walking around the block. - Pain L ankle pain Pain Intensity (Out of 10): 0 Pain Intensity Range: 8 Comment: with walking - Objective Gait: walks with slight decrease stance time on the L. L 25.4 med to lat mal, fig 8 52, met head 22. R 25.6, 51.6, 21.6. L ankle AROM: 15 DF and 65 PF, 31 and 11. R 9 and 68 and 25 and 8. Increase pain with walking on her toes.... Palpation: tender along L peroneal tendon and slight tenderness along the L high achilles tendon. L ankle eversion 4-/5 with pain, inversion 4/5, DF/PF 4/5 - Goals Goal 1:: I HEP Goal Time Frame: 4-6 Weeks Goal 2:: Decrease L foot pain with walking to 1/10 Goal Time Frame: 4-6 Weeks Goal 3:: Be able to resume regular walking schedule ( 3 miles) with very little pain Goal Time Frame: 4-6 Weeks Goal 4:: Be able to walk on heels and toes without pain Goal Time Frame: 4-6 Weeks - Rehabilitation Potential Rehabilitation Potential: Good - Anticipated Interventions Patient/Client Instruction: Educate patient on: Condition, Plan of Care For the Purpose of:: To decrease pain, To decrease swelling/inflammation, To increase ROM, To improve nutrient delivery to tissue, To improve muscle performance and motor function, To improve ability to perform ADL's, To increase tolerance to activity/condition/position, To improve performance and independence with ADL's, To improve ability of physical actions for home/community/work/leisure, To improve gait and locomotor functions, To improve health of tissue, To increase flexibility/ROM Therapeutic Exercise to Include: Strength training, Gait and locomotor training, Passive ROM, Active ROM For the Purpose of:: To decrease pain, To decrease swelling/inflammation, To increase ROM, To improve nutrient delivery to tissue, To improve muscle performance and motor function, To improve ability to perform ADL's, To increase tolerance to activity/condition/position, To improve ability of physical actions for home/community/work/leisure, To improve gait and locomotor functions, To improve health of tissue, To decrease soft tissue restriction Manual Therapy Techniques to Include: Soft tissue mobilization For the Purpose of:: To decrease pain, To increase ROM, To improve nutrient delivery to tissue, To improve muscle performance and motor function, To improve ability to perform ADL's, To increase tolerance to activity/condition/position, To improve performance and independence with ADL's IF ES: Yes Cryotherapy (ice pack, ice massage): Yes Thermo therapy (hot pack): Yes Ultrasound (thermal/non thermal): Yes For the Purpose of:: To decrease pain, To decrease swelling/inflammation, To improve nutrient delivery to tissue Thank you for the opportunity to evaluate your patient. For Medicare and Medicare HMO plans, please review the plan of care and approve it. It will need to be FAXED BACK to us at [phone] for Medicare purposes. For Medicare only, by signing this I certify the plan of care. Please let me know if there are questions or concerns regarding this plan of care. Physician Signature: Date:
--- NOTE | 2019-08-05 16:02 | HP.PT.NRP ---
ROSANNE MCCLAIN was seen in my office for initial evaluation on 03/04/19. The following Plan of Care was established for this patient: Initial Frequency: 2-3x /Week Initial Duration: 4-6 Weeks Patient/Client Instruction: Educate patient on: Condition, Plan of Care For the Purpose of:: To decrease pain, To decrease swelling/inflammation, To increase ROM, To improve nutrient delivery to tissue, To improve muscle performance and motor function, To improve ability to perform ADL's, To increase tolerance to activity/condition/position, To improve performance and independence with ADL's, To improve ability of physical actions for home/community/work/leisure, To improve gait and locomotor functions, To improve health of tissue, To increase flexibility/ROM Therapeutic Exercise to Include: Strength training, Gait and locomotor training, Passive ROM, Active ROM For the Purpose of:: To decrease pain, To decrease swelling/inflammation, To increase ROM, To improve nutrient delivery to tissue, To improve muscle performance and motor function, To improve ability to perform ADL's, To increase tolerance to activity/condition/position, To improve ability of physical actions for home/community/work/leisure, To improve gait and locomotor functions, To improve health of tissue, To decrease soft tissue restriction Manual Therapy Techniques to Include: Soft tissue mobilization For the Purpose of:: To decrease pain, To increase ROM, To improve nutrient delivery to tissue, To improve muscle performance and motor function, To improve ability to perform ADL's, To increase tolerance to activity/condition/position, To improve performance and independence with ADL's IF ES: Yes Cryotherapy (ice pack, ice massage): Yes Thermo therapy (hot pack): Yes Ultrasound (thermal/non thermal): Yes For the Purpose of:: To decrease pain, To decrease swelling/inflammation, To improve nutrient delivery to tissue This patient was last seen in our office 04/17/19. Pertinent comments regarding their Physical therapy will appear below: Pt was going to have an MRI and was on HOLD. She will be discharged at this time. At this point I will be discontinuing this patient from physical therapy. I would be happy to see this patient again in the future if found appropriate by the physician. Thank you! Nicky Mazariegos, MPT
== END 2019-04-17 19:00 | disposition home or self-care (01) ==
LOC: PT 15:00
PROVIDERS: Family Provider Family Medicine; PCP Family Medicine; Referring Provider Family Medicine; Visit Provider Family Medicine
DX: M76.62 Achilles tendinitis, left leg (principal)
CPT/HCPCS: 97035; 97110; 97140; 97161

== ENCOUNTER → 2019-06-12 11:01 | Outpatient (CLI) | payer OTHER, SELFPAY ==
[2018-04-19 17:20] VITALS: BMI 44.9
--- NOTE | 2019-06-12 11:16 | MRI_ITS ---
STUDY: MRI LEFT ANKLE WITHOUT CONTRAST REASON FOR EXAM: Left ankle pain below the lateral malleolus for 5 months, no specific injury. TECHNIQUE: Standardized fat and water weighted pulse sequences were obtained in all 3 orthogonal planes. COMPARISON: None. FINDINGS: Normal subcutis adipose space. Normal posterior tibialis tendon. Normal flexor digitorum longus tendon. Normal flexor hallucis longus tendon. There is fluid in the retromalleolar and submalleolar peroneal tendon sheath (inversion recovery sagittal images 14, 15). There is reactive bone edema in the peroneal tubercle (T2 coronal images 14, 15). The peroneus longus and brevis tendons are morphologically normal. Normal tibialis anterior tendon. Normal extensor hallucis longus tendon. Normal extensor digitorum longus tendons. There is mild distal Achilles tendinosis (inversion recovery sagittal images 8-10) without discrete tendon tear. There is thickening of the central cord of the plantar fascia at the calcaneal origin (inversion recovery sagittal image 7) without interstitial edema suggestive of chronic planter fasciitis. Normal plantar calcaneal tubercles. There is mild atrophy with mild partial fat replacement of the abductor digiti minimi muscle (T1 axial images 25, 26). Normal distal tibiofibular syndesmotic ligamentous complex. Normal lateral ligamentous complex. Normal subtalar ligaments and sinus tarsi. Normal deltoid ligamentous complexes. Normal plantar calcaneonavicular (spring) ligament. There is a small osteochondral lesion of the posterior lateral aspect of the talar dome (T1 sagittal image 13) measuring approximately 0.3 cm in AP and transverse dimensions with mild bone edema of the fragment (inversion recovery sagittal image 11) without MRI manifestations of fragment instability. Normal subtalar articulations. Normal talonavicular articulation. Normal calcaneocuboid articulation. Normal navicular-cuneiform articulations. There is arthrosis of the second tarsometatarsal joint with chondral thinning and subchondral cystic change (T1 sagittal images 10, 11). There is a small subchondral cyst in the distal lateral cuneiform at the third tarsometatarsal articulation (T1 sagittal image 13). MRI/Lower Ext Joint Only (Routine) IMPRESSION: Peroneal tenosynovitis with reactive bone edema in the peroneal tubercle. Mild distal Achilles tendinosis. Chronic planter fasciitis. Small osteochondral lesion of the posterior lateral talar dome. Arthrosis of the second tarsometatarsal articulation. Mild atrophy of the abductor digiti minimi muscle. Electronically Signed: Greyson Edwards MD at 12:41 EST Tel , Service support ,
== END ==
LOC: MRI 11:02
PROVIDERS: PCP Family Medicine; Referring Provider Podiatrist; Visit Provider Podiatrist
DX: M76.72 Peroneal tendinitis, left leg (principal)
CPT/HCPCS: 73721

== ENCOUNTER → 2020-01-03 11:14 | Outpatient (CLI) | payer OTHER, SELFPAY ==
[2018-04-19 17:20] VITALS: BMI 44.9
[2020-01-03 15:50] LABS: AST(SGOT) 18 U/L (15-37); Alanine Aminotransfer ALT/SGPT 23 U/L (13-56); Anion Gap 5 (5-15); BUN 15 mg/dL (7-18); Calcium,Total 9.3 mg/dL (8.5-10.1); Chloride 103 mmol/L (98-107); Cholesterol 205 mg/dL (200); Creatinine, Serum 0.68 mg/dL (0.55-1.02); EST Glomerular Filtration Rate 93 mL/min (>60); Est Glom Filt Rate - Afr Amer 113 mL/min (>60); Glucose 93 mg/dL (74-106); High Density Lipoprotein 69 mg/dL; Potassium 4.6 mmol/L (3.5-5.1); Sodium Level 136 mmol/L (136-145); T4 Total, Thyroxin 10.8 ug/dL (4.8-13.9); Thyroid Stim Hormone (TSH) 0.39 uIU/mL (0.358-3.74); Triglycerides 56 mg/dL; Very Low Density Lipoprotein 11 mg/dL (5-40)
== END ==
PROVIDERS: PCP Family Medicine; Referring Provider Family Medicine; Visit Provider Family Medicine
DX: I10 Essential (primary) hypertension (principal); E78.5 Hyperlipidemia, unspecified; E03.9 Hypothyroidism, unspecified
CPT/HCPCS: 36415; 80048; 80061; 84436; 84443; 84450; 84460

== ENCOUNTER → 2020-01-15 15:32 | Outpatient (CLI) | payer OTHER, SELFPAY ==
[2018-04-19 17:20] VITALS: BMI 44.9
--- NOTE | 2020-01-15 15:34 | BI_ITS ---
MAMMOGRAPHY - BILATERAL SCREENING REASON FOR EXAM: Female, 59 years old. Routine annual screening examination. PERTINENT HISTORY: Non-contributory. Bilateral breast reduction. TECHNIQUE: Digital bilateral breast aditi (3D mammographic acquisition) in the CC and MLO projections. 2-D mediolateral oblique (MLO) and craniocaudad (CC) views of both breasts were obtained. CAD: Full Field Digital Mammography with Computer Added Detection was performed. COMPARISON: Comparison is made with prior examination dated 01/04/2019 and 12/27/2017. FINDINGS: Breast Composition: The breasts are almost entirely fatty. There are no dominant masses or suspicious calcifications. Stable benign-appearing bilateral axillary lymph nodes. Stable calcified nodules in the left breast. No other significant abnormalities are identified. There has been no significant change since the prior study. BI/SCREEN MAMM (CAD) W/ADITI BILAT IMPRESSION: Stable bilateral screening mammogram. Yearly follow-up mammogram recommended. (A) ASSESSMENT CATEGORY: BIRADS Category 2: Benign. A letter regarding these results will be sent to the patient by the facility within 30 days. Approximately 10% of breast cancers are not detected by mammography. A normal mammogram should not delay biopsy of a clinically suspicious abnormality. [id number] Electronically Signed: Brian Negrete, at 7:07 EDT , Service support ,
== END ==
PROVIDERS: PCP Family Medicine; Referring Provider Family Medicine; Visit Provider Family Medicine
DX: Z12.31 Encounter for screening mammogram for malignant neoplasm of breast (principal)
CPT/HCPCS: 77063; 77067

== ENCOUNTER → 2020-07-30 16:26 | Outpatient (CLI) | payer OTHER, SELFPAY ==
[2018-04-19 17:20] VITALS: BMI 44.9
[2020-07-30 17:37] LABS: Absolute Lymphocyte Count 1.75 X10^3/uL (0.83-4.51); Absolute Neutrophil Count 4.1 X10^3/uL (2.0-7.7); Basophil# 0.03 X10^3/uL; Basophil% 0.5 % (0-1); Eosinophil# 0.11 X10^3/uL; Eosinophils% 1.7 % (0-5); Hematocrit 40.9 % (37-47); Hemoglobin 12.8 g/dL (12.0-15.0); Lymphocyte # 1.75 X10^3/ul (4.0); Lymphocyte % 27.1 % (19-41); Mean Corp Hgb Conc 31.3 g/dL (32-36); Mean Corpuscular Hgb 26.4 pg (27.0-32.0); Mean Corpuscular Volume 84.5 fL (81-99); Mean Platelet Vol. 10.3 fl (6.2-12.0); Monocyte# 0.48 X10^3/uL; Monocyte% 7.4 % (0-10); NRBC Flagged by Analyzer 0 % (0-5); Neutrophil # 4.08 X10^3/uL (2.7-7.7); Neutrophil % 63.1 % (47-70); Platelet Count 247 K/mm3 (150-450); RBC Distribution Width CV 14.4 % (11.6-14.6); RBC Distribution Width SD 44.1 fl (35.1-43.9); Red Blood Count 4.84 M/mm3 (4.2-5.4); White Blood Count 6.5 K/mm3 (4.4-11.0)
== END ==
PROVIDERS: PCP Family Medicine; Referring Provider Family Medicine; Visit Provider Nurse Practitioner Family
DX: R59.1 Generalized enlarged lymph nodes (principal)
CPT/HCPCS: 36415; 85025

== ENCOUNTER → 2021-01-28 13:16 | Outpatient (CLI) | payer OTHER, SELFPAY ==
--- NOTE | 2021-01-28 13:19 | BI_ITS ---
MAMMOGRAPHY - BILATERAL SCREENING REASON FOR EXAM: Female, 60 years old. Routine annual screening examination. PERTINENT HISTORY: Non-contributory. History of prior bilateral breast reduction surgery. TECHNIQUE: Digital bilateral breast aditi (3D mammographic acquisition) in the CC and MLO projections. 2-D mediolateral oblique (MLO) and craniocaudad (CC) views of both breasts were obtained. CAD: Full Field Digital Mammography with Computer Added Detection was performed. COMPARISON: Comparison is made with prior study dated 01/15/2020 and 01/04/2019. FINDINGS: Breast Composition: The breasts are almost entirely fatty. There are no dominant masses or suspicious calcifications. Stable benign-appearing bilateral axillary lymph nodes. No other significant abnormalities are identified. There has been no significant change since the prior study. BI/SCRN MAMM (CAD)W/ADITI BILAT IMPRESSION: Stable bilateral screening mammogram. Yearly follow-up mammogram recommended. (A) ASSESSMENT CATEGORY: BIRADS Category 2: Benign. A letter regarding these results will be sent to the patient by the facility within 30 days. Approximately 10% of breast cancers are not detected by mammography. A normal mammogram should not delay biopsy of a clinically suspicious abnormality. [id number] Electronically Signed: Brian Negrete MD at 14:40 EDT , Service support ,
== END ==
PROVIDERS: PCP Family Medicine; Referring Provider Family Medicine; Visit Provider Family Medicine
DX: Z12.31 Encounter for screening mammogram for malignant neoplasm of breast (principal)
CPT/HCPCS: 77063; 77067

== ENCOUNTER → 2021-02-22 10:22 | Outpatient (CLI) | payer OTHER, SELFPAY ==
[2021-02-22 12:26] LABS: Microalbumin,Random Urine 5.5 mg/L (NO RANGE EST.); Microalbumin:Creatinine Ratio 9.3 mg/g CRE (<30 mg/g CRE)
[2021-02-22 12:31] LABS: AST(SGOT) 18 U/L (15-37); Alanine Aminotransfer ALT/SGPT 25 U/L (13-56); Anion Gap 6 (5-15); BUN 13 mg/dL (7-18); BUN/Creat Ratio 17.9 RATIO (10-20); Calcium,Total 9.6 mg/dL (8.5-10.1); Chloride 99 mmol/L (98-107); Cholesterol 208 mg/dL (200); Creatinine, Serum 0.73 mg/dL (0.55-1.02); EST Glomerular Filtration Rate 86 mL/min (>60); Est Glom Filt Rate - Afr Amer 104 mL/min (>60); Glucose 100 mg/dL (74-106); High Density Lipoprotein 65 mg/dL; Potassium 4.6 mmol/L (3.5-5.1); Sodium Level 135 mmol/L (136-145); T4 Total, Thyroxin 9.6 ug/dL (4.8-13.9); Triglycerides 69 mg/dL; Very Low Density Lipoprotein 14 mg/dL (5-40)
== END ==
PROVIDERS: PCP Family Medicine; Visit Provider Family Medicine
DX: Z00.00 Encounter for general adult medical examination without abnormal findings (principal)
CPT/HCPCS: 36415; 80048; 80061; 82043; 82570; 84436; 84443; 84450; 84460

== ENCOUNTER → 2021-04-14 12:07 | Outpatient (CLI) | payer OTHER, SELFPAY ==
--- NOTE | 2021-04-14 12:09 | RAD_ITS ---
STUDY: XR Knee Complete 4 Views or More 04/14/2021 3:27 PM REASON FOR EXAM: Female, 60 years old. PAIN TECHNIQUE: XR Knee Complete 4 Views or More COMPARISON: None. FINDINGS: Normal visualized distal femur. Normal visualized proximal tibia and fibula. Normal proximal tibiofibular articulation. Normal medial femorotibial compartment. Normal lateral femorotibial compartment. Normal patellofemoral articulation. The soft tissue structures are unremarkable. RAD/Knee 4 or More Views IMPRESSION: There are no acute findings. Electronically Signed: Doe Galvez MD at 15:33 EST , Service support ,
== END ==
PROVIDERS: PCP Family Medicine; Referring Provider Family Medicine; Visit Provider Family Medicine
DX: M25.569 Pain in unspecified knee (principal)
CPT/HCPCS: 73564

== ENCOUNTER 2021-06-16 11:00 | Outpatient (RCR) | payer OTHER, SELFPAY ==
--- NOTE | 2021-05-24 11:01 | HP.PTEVAL ---
Patient's Visit Information ROSANNE MCCLAIN is a 60 year old F referred to Physical Therapy by SUSHANT Hatfield with a diagnosis of R knee pain (possible meniscal tear) DOI: 04-12-21. Date of Evaluation: 05/24/21 Physical Therapist: COY Staton - Visit Plan Frequency: 2x /Week Duration: 4 Weeks Plan: 2X/ week for 3 weeks and reassess at that point progress. Strengthen R knee and hip and core strength, gait training with HEP and modalities as needed. HEP: SLR, S/L hip abd, LAQ - Subjective Pt reports that the Monday after and was side stepping and her Left foot stepped on R foot and she went down on the R knee. Dr Ocasio x-ray and was normal and said let it heal. She went over to [facility] and she wants to do an MRI but has to PT first. She reports that her pain is on the medial side of her knee with every step she takes. She is using one crutch or a cane. She can stand without any issue. She reports no swelling and no swelling or discolor when she fell on her R knee and pain did not come on until the next day. Her knee feels that it wants to hyper extend . She has a brace when she is out and about. She thinks that her knee has gotten a tad better but now plateaued. It no longer aches at night. She did get a steroid shot on the lateral side but her pain is on the medial side and it did nothing. She has been taking Meloxicam once a day. She has no N&T. She feels that it is weak at times. She walks abnormal without the crutch. She does stairs one foot at a time up the stairs. - Pain R knee pain Pain Intensity (Out of 10): 3 Pain Intensity Range: 7 - Objective Gait: Walks with decrease stance time on the R LE. Palpation: slight tenderness along the medial knee and inferior to joint line as well. R knee AROM: flexion 115 and 0 degrees extension. L knee AROM: flexion 115 and 0 degrees extension. Pt has increase pain with closing down on the R medial side of the knee and going from flexion to extension. Also has increase pain with twisting and medial compression of the medial compartment. Pt had increase R medial knee pain with bridges. Pt has good patella mobility. LE MMT: hip flex 4/5, hip abd 4-/5, knee flex and ext 4/5. Pt is able to walk on heels and toes with minimal pain - Balance/Special Test Scores Lower Extremity Functional Score: 49 - Goals Goal 1:: I HEP Goal Time Frame: 2-4 Weeks Goal 2:: Be able to go from sitting to standing and vice versa with no pain Goal Time Frame: 2-4 Weeks Goal 3:: Be able to walk with a normal gait pattern with no AD and no pain Goal Time Frame: 2-4 Weeks - Rehabilitation Potential Rehabilitation Potential: Good - Anticipated Interventions Patient/Client Instruction: Educate patient on: Condition, Plan of Care For the Purpose of:: To decrease pain, To increase ROM, To improve nutrient delivery to tissue, To improve muscle performance and motor function, To improve ability to perform ADL's, To increase tolerance to activity/condition/position, To improve performance and independence with ADL's, To decrease level of supervision to perform tasks, To improve ability of physical actions for home/community/work/leisure, To improve gait and locomotor functions, To improve health of tissue, To decrease soft tissue restriction, To increase flexibility/ROM, To improve balance Therapeutic Exercise to Include: Strength training, Flexibilty training, Gait and locomotor training, Passive ROM, Active ROM For the Purpose of:: To decrease pain, To increase ROM, To improve nutrient delivery to tissue, To improve muscle performance and motor function, To improve ability to perform ADL's, To increase tolerance to activity/condition/position, To improve performance and independence with ADL's, To improve ability of physical actions for home/community/work/leisure, To improve gait and locomotor functions, To improve health of tissue, To decrease soft tissue restriction, To increase flexibility/ROM Functional Training to Include: Gait training For the Purpose of:: To improve gait and locomotor functions, To improve safety with gait IF ES: Yes Other electric stimulation: Yes Cryotherapy (ice pack, ice massage): Yes Thermo therapy (hot pack): Yes For the Purpose of:: To decrease pain, To increase ROM, To improve nutrient delivery to tissue Thank you for the opportunity to evaluate your patient. For Medicare and Medicare HMO plans, please review the plan of care and approve it. It will need to be FAXED BACK to us at [phone] for Medicare purposes. For Medicare only, by signing this I certify the plan of care. Please let me know if there are questions or concerns regarding this plan of care. Physician Signature: Date:
--- NOTE | 2021-06-16 12:33 | HP.PTREVAL ---
SUSHANT Hatfield, It has been my pleasure to treat ROSANNE MCCLAIN over the last 8 visits for R knee pain (possible meniscal tear) DOI: 04-12-21. Please see the progress note below for an update on the physical therapy plan of care! Subjective: Talked to nurse practicioner and she will order MRI. Pt has increase R knee pain with each R step with walking. If in prolonged extension she will have increase knee pain and stiffness. She has increased ability to stand on the R LE. Strength in has improved 75% and pain babin no improvement Objective/Function: Pt has a good gait pattern today but when flared up she has pain she is still limping. Sit to stand pt does not have to shift her knee to feel stable enough to walk now. R knee AROM: 121 degrees knee flexion and -1 degree from full extension. Pain still remains painful but strength has improved as well as pain when first standing up. Plan Plan: Hold chart until after the MRI and pt will call in and let me know the Dr GALVAN. Balance/Gait/Functional tests - Balance/Special Test Scores Lower Extremity Functional Score: 58 Goals Goal 1:: I HEP Goal Time Frame: 2-4 Weeks Goal Progress: Goal Met Goal 2:: Be able to go from sitting to standing and vice versa with no pain Goal Time Frame: 2-4 Weeks Goal Progress: Goal Met Goal 3:: Be able to walk with a normal gait pattern with no AD and no pain Goal Time Frame: 2-4 Weeks Goal Progress: Progressing at times. Anticipated Interventions Patient/Client Instruction: Educate patient on: Condition, Plan of Care For the Purpose of:: To decrease pain, To increase ROM, To improve nutrient delivery to tissue, To improve muscle performance and motor function, To improve ability to perform ADL's, To increase tolerance to activity/condition/position, To improve performance and independence with ADL's, To decrease level of supervision to perform tasks, To improve ability of physical actions for home/community/work/leisure, To improve gait and locomotor functions, To improve health of tissue, To decrease soft tissue restriction, To increase flexibility/ROM, To improve balance Therapeutic Exercise to Include: Strength training, Flexibilty training, Gait and locomotor training, Passive ROM, Active ROM For the Purpose of:: To decrease pain, To increase ROM, To improve nutrient delivery to tissue, To improve muscle performance and motor function, To improve ability to perform ADL's, To increase tolerance to activity/condition/position, To improve performance and independence with ADL's, To improve ability of physical actions for home/community/work/leisure, To improve gait and locomotor functions, To improve health of tissue, To decrease soft tissue restriction, To increase flexibility/ROM Functional Training to Include: Gait training For the Purpose of:: To improve gait and locomotor functions, To improve safety with gait IF ES: Yes Other electric stimulation: Yes Cryotherapy (ice pack, ice massage): Yes Thermo therapy (hot pack): Yes For the Purpose of:: To decrease pain, To increase ROM, To improve nutrient delivery to tissue Please do not hesitate to contact me at [phone] by phone or if you have questions or concerns regarding this new plan of care! Sincerely, Nicky Mazariegos, MPT
--- NOTE | 2021-11-09 08:50 | HP.PTDCSUM ---
It has been my pleasure to treat ROSANNE MCCLAIN referred by SUSHANT Hatfield, with the diagnosis of R knee pain (possible meniscal tear) DOI: 04-12-21 for a total of 8 visit(s). Discharge Date: Please see the following information for a summary of their discharge status. Subjective: Talked to nurse practicioner and she will order MRI. Pt has increase R knee pain with each R step with walking. If in prolonged extension she will have increase knee pain and stiffness. She has increased ability to stand on the R LE. Strength in has improved 75% and pain babin no improvement R knee pain Pain Intensity (Out of 10): 3 % Improvement: 75 Objective/Function: Pt has a good gait pattern today but when flared up she has pain she is still limping. Sit to stand pt does not have to shift her knee to feel stable enough to walk now. R knee AROM: 121 degrees knee flexion and -1 degree from full extension. Pain still remains painful but strength has improved as well as pain when first standing up. Goal 1:: I HEP Goal Progress: Goal Met Goal 2:: Be able to go from sitting to standing and vice versa with no pain Goal Progress: Goal Met Goal 3:: Be able to walk with a normal gait pattern with no AD and no pain Goal Progress: Progressing at times. Plan: Hold chart until after the MRI and pt will call in and let me know the Dr POC. [facility] PT ... having surgery If there are questions or concerns regarding this patient's physical therapy, please feel free to call me at [phone]. Thank you for the referral of this patient. Sincerely, Nicky Mazariegos, MPT Balance/Gait/Functional tests - Balance/Special Test Scores Lower Extremity Functional Score: 58
== END 2021-06-16 19:00 | disposition home or self-care (01) ==
LOC: PT 11:00
PROVIDERS: PCP Family Medicine
DX: M25.561 Pain in right knee (principal)
CPT/HCPCS: 97110; 97161

== ENCOUNTER 2021-06-26 08:39 | Outpatient (CLI) | payer OTHER, SELFPAY ==
--- NOTE | 2021-06-26 08:43 | MRI_ITS ---
STUDY: MRI RIGHT KNEE REASON FOR EXAM: Medial right knee pain, right knee injury 2.5 months ago. TECHNIQUE: Standardized fat and water weighted pulse sequences were obtained in all 3 orthogonal planes. COMPARISON: Radiographs 04/14/2021. FINDINGS: There is a radial tear at the root of the posterior horn of the medial meniscus (T2 coronal images 11, 12; proton-density sagittal images 22, 23). There is peripheral subluxation of the medial meniscus. There is mild arthrosis of the medial femorotibial compartment with mild chondral thinning (T2 sagittal image 16). There is a subchondral stress fracture of the medial tibial plateau (T2 coronal images 15-18) with bone edema. Normal medial collateral ligamentous complex (MCL). Normal distal semimembranosus, gracilis and semitendinosus tendons. Normal lateral meniscus. Normal hyaline cartilage of the lateral femorotibial compartment. Normal lateral femoral condyle and tibial plateau. Normal proximal tibiofibular articulation. Normal lateral collateral (fibular) ligament. Normal popliteus tendon. Normal biceps femoris tendon. Normal anterior cruciate ligament (ACL). Normal posterior cruciate ligament (PCL). Normal congruent patellofemoral articulation. There is arthrosis of the patellofemoral compartment with partial-thickness chondral loss (T2 sagittal image 8). Normal medial and lateral patellar retinaculum. Normal quadriceps tendon. Normal patellar tendon. Normal Hoffa''s fat pad. There is a small joint effusion. There is a thin medial patellar plica. There is a small popliteal cyst with mild extravasation of fluid (T2 sagittal images 14-18). There is edema in the anterior subcutis adipose space. The otherwise visualized osseous structures are unremarkable. MRI/Lower Ext Joint Only (Routine) IMPRESSION: Radial tear at the root of the posterior horn of the medial meniscus. Subchondral stress fracture of the medial tibial plateau. 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 Small joint effusion. Small popliteal cyst with mild extravasation of fluid. Electronically Signed: Greyson Edwards MD at 8:48 EST ,
== END 2021-06-26 23:59 | disposition home or self-care (01) ==
PROVIDERS: PCP Family Medicine
DX: M25.561 Pain in right knee (principal)
CPT/HCPCS: 73721

== ENCOUNTER → 2022-02-15 | Outpatient (CLI) | payer OTHER, SELFPAY ==
--- NOTE | 2022-02-15 08:26 | BI_ITS ---
MAMMOGRAPHY - BILATERAL SCREENING REASON FOR EXAM: Female, 61 years old. Routine annual screening examination. PERTINENT HISTORY: Non-contributory. History of prior bilateral breast reduction surgery. TECHNIQUE: Digital bilateral breast aditi (3D mammographic acquisition) in the CC and MLO projections. 2-D mediolateral oblique (MLO) and craniocaudad (CC) views of both breasts were obtained. CAD: Full Field Digital Mammography with Computer Added Detection was performed. COMPARISON: Comparison is made with prior study 01/28/2021 and 01/15/2020. FINDINGS: Breast Composition: The breasts are almost entirely fatty. There are no dominant masses or suspicious calcifications. Stable benign-appearing bilateral axillary lymph nodes. No other significant abnormalities are identified. There has been no significant change since the prior study. BI/SCRN MAMM (CAD)W/ADITI BILAT IMPRESSION: Stable bilateral screening mammogram. Yearly follow-up mammogram recommended. (A) ASSESSMENT CATEGORY: BIRADS Category 2: Benign. A letter regarding these results will be sent to the patient by the facility within 30 days. Approximately 10% of breast cancers are not detected by mammography. A normal mammogram should not delay biopsy of a clinically suspicious abnormality. [id number] Electronically Signed: Brian Negrete MD at 9:20 EDT ,
== END | disposition home or self-care (01) ==
LOC: OPBI 08:24
PROVIDERS: PCP Family Medicine; Visit Provider Family Medicine
DX: Z12.31 Encounter for screening mammogram for malignant neoplasm of breast (principal)
CPT/HCPCS: 77063; 77067

== ENCOUNTER → 2022-03-02 | Outpatient (CLI) | payer OTHER, SELFPAY ==
[2022-03-02 15:40] LABS: AST(SGOT) 22 U/L (15-37); Alanine Aminotransfer ALT/SGPT 30 U/L (13-56); Anion Gap 7 (5-15); BUN 21 mg/dL (7-18); BUN/Creat Ratio 29.8 RATIO (10-20); Calcium,Total 9.2 mg/dL (8.5-10.1); Chloride 100 mmol/L (98-107); Cholesterol 190 mg/dL (200); EST Glomerular Filtration Rate 89 mL/min (>60); Est Glom Filt Rate - Afr Amer 108 mL/min (>60); Glucose 90 mg/dL (74-106); High Density Lipoprotein 75 mg/dL; Microalbumin,Random Urine 7.9 mg/L (NO RANGE EST.); Microalbumin:Creatinine Ratio 5.9 mg/g CRE (<30 mg/g CRE); Sodium Level 134 mmol/L (136-145); T4 Total, Thyroxin 10.1 ug/dL (4.8-13.9); Triglycerides 53 mg/dL; Very Low Density Lipoprotein 11 mg/dL (5-40)
== END | disposition home or self-care (01) ==
LOC: MFPLAB 11:53
PROVIDERS: PCP Family Medicine; Referring Provider Family Medicine; Visit Provider Family Medicine
DX: E78.5 Hyperlipidemia, unspecified (principal); E03.9 Hypothyroidism, unspecified; I10 Essential (primary) hypertension
CPT/HCPCS: 36415; 80048; 80061; 82043; 82570; 84436; 84443; 84450; 84460

== ENCOUNTER 2022-03-07 11:30 | Outpatient (RCR) | payer OTHER, SELFPAY ==
--- NOTE | 2021-08-23 09:54 | HP.PTEVAL ---
Patient's Visit Information ROSANNE MCCLAIN is a 60 year old F referred to Physical Therapy by Dr. Destiny Randall DO with a diagnosis of 07-27-21 R meniscal repair. Date of Evaluation: 08/23/21 Physical Therapist: COY Staton - Visit Plan Frequency: 1-2x /Week Duration: 2 Months Plan: TTWB until 09-08-21. 0-60 degrees for 2 weeks (Pt is 0-60 degrees now) until 08-25-21. 0-90 degrees for 2 weeks (starting 08-25-21? pt is asking the Dr for clarification because she was told to keep 0-[address] falk which is conflicting with order which would be switch to 0-90 on 08-25-21). Pt's brace is open on 09-08-21. 102X/ week for 6-8 weeks for R hip and knee strength and ROM, gait training, functional transfers, stairs, balance with HEP. HEP: SLR, S/L hip abd, prone hip ext, heel slides, QS - Subjective Pt had surgery 4 weeks tomorrow for meniscal repair. She had surgery on 07-27-21. She is TTWB on crutches and brace is open 0-60 degrees. Pt would like to do most of her therapy at home until she is full weight bearing to save on her visits. She is sleeping good and sleeping with her brace on. She has steps in and out of the house with a railing and is doing that fine. - Pain R knee pain Pain Intensity (Out of 10): 0 Pain Intensity Range: 3 - Objective Gait: walks with B crutches with TTWB on the R with brace open to 60 degrees. R knee AROM: 0- 60 degrees (due to restrictions). Girth measurements: R 53.5, 54.1, and 60.4 and L 48.2, 49.2, and 60.7. LE MMT: R hip abd 4-/5 and L 4/5, Pt is able to SLR on the R. Sit to stand: Able on first attempt using B UE and using L get to get up. - Balance/Special Test Scores Lower Extremity Functional Score: 40 - Goals Goal 1:: I HEP Goal Time Frame: 4-6 Weeks Goal 2:: Increase R knee AROM 0-120 degrees pain free Goal Time Frame: 4-6 Weeks Goal 3:: Be able to go up and down the steps recip with 1 hand rail for balance without any signs of weakness or pain Goal Time Frame: 4-6 Weeks Goal 4:: Be able to walk with a normal gait pattern without any antalgic gait Goal Time Frame: 4-6 Weeks - Rehabilitation Potential Rehabilitation Potential: Good - Anticipated Interventions Patient/Client Instruction: Educate patient on: Condition, Plan of Care For the Purpose of:: To decrease pain, To decrease swelling/inflammation, To increase ROM, To improve nutrient delivery to tissue, To improve muscle performance and motor function, To improve ability to perform ADL's, To increase tolerance to activity/condition/position, To improve performance and independence with ADL's, To decrease level of supervision to perform tasks, To improve ability of physical actions for home/community/work/leisure, To improve gait and locomotor functions, To improve health of tissue, To decrease soft tissue restriction, To increase flexibility/ROM, To improve balance Therapeutic Exercise to Include: Strength training, Endurance training, Balance training, Flexibilty training, Gait and locomotor training, Neuromotor development, Passive ROM, Active ROM For the Purpose of:: To decrease pain, To decrease swelling/inflammation, To increase ROM, To improve nutrient delivery to tissue, To improve muscle performance and motor function, To improve ability to perform ADL's, To increase tolerance to activity/condition/position, To improve performance and independence with ADL's, To decrease level of supervision to perform tasks, To improve ability of physical actions for home/community/work/leisure, To improve gait and locomotor functions, To improve health of tissue, To decrease soft tissue restriction, To increase flexibility/ROM, To improve balance, To improve safety with gait Functional Training to Include: Gait training For the Purpose of:: To improve gait and locomotor functions, To improve safety with gait Thank you for the opportunity to evaluate your patient. For Medicare and Medicare HMO plans, please review the plan of care and approve it. It will need to be FAXED BACK to us at [phone] for Medicare purposes. For Medicare only, by signing this I certify the plan of care. Please let me know if there are questions or concerns regarding this plan of care. Physician Signature: Date:
--- NOTE | 2021-10-04 11:58 | HP.PTREVAL ---
Dr. Destiny Randall, DO, It has been my pleasure to treat ROSANNE MCCLAIN over the last 10 visits for 3-15- R meniscal repair. Please see the progress note below for an update on the physical therapy plan of care! Subjective: 06/24 pain still with walking. She reports that the DrDenny is not concerned but wants her to start some Aquatic therapy. Pt wants to learn what she should do and do it at a pool on her own. Objective/Function: Pt did ok with the 6 inch step... still felt a pinch with each step up Plan Plan: 1-2X/ week for 6-8 weeks for R hip and knee strength and ROM, gait training, functional transfers, stairs, balance with HEP. HEP: SLR, S/L hip abd, prone hip ext, heel slides, QS Balance/Gait/Functional tests - Balance/Special Test Scores Lower Extremity Functional Score: 51 Goals Goal 1:: I HEP Goal Time Frame: 4-6 Weeks Goal 2:: Increase R knee AROM 0-120 degrees pain free Goal Time Frame: 4-6 Weeks Goal 3:: Be able to go up and down the steps recip with 1 hand rail for balance without any signs of weakness or pain Goal Time Frame: 4-6 Weeks Goal 4:: Be able to walk with a normal gait pattern without any antalgic gait Goal Time Frame: 4-6 Weeks Anticipated Interventions Patient/Client Instruction: Educate patient on: Condition, Plan of Care For the Purpose of:: To decrease pain, To decrease swelling/inflammation, To increase ROM, To improve nutrient delivery to tissue, To improve muscle performance and motor function, To improve ability to perform ADL's, To increase tolerance to activity/condition/position, To improve performance and independence with ADL's, To decrease level of supervision to perform tasks, To improve ability of physical actions for home/community/work/leisure, To improve gait and locomotor functions, To improve health of tissue, To decrease soft tissue restriction, To increase flexibility/ROM, To improve balance Therapeutic Exercise to Include: Strength training, Endurance training, Balance training, Flexibilty training, Gait and locomotor training, Neuromotor development, Passive ROM, Active ROM For the Purpose of:: To decrease pain, To decrease swelling/inflammation, To increase ROM, To improve nutrient delivery to tissue, To improve muscle performance and motor function, To improve ability to perform ADL's, To increase tolerance to activity/condition/position, To improve performance and independence with ADL's, To decrease level of supervision to perform tasks, To improve ability of physical actions for home/community/work/leisure, To improve gait and locomotor functions, To improve health of tissue, To decrease soft tissue restriction, To increase flexibility/ROM, To improve balance, To improve safety with gait Functional Training to Include: Gait training For the Purpose of:: To improve gait and locomotor functions, To improve safety with gait Please do not hesitate to contact me at [phone] by phone or if you have questions or concerns regarding this new plan of care! Sincerely, Nicky Mazariegos, MPT
--- NOTE | 2021-12-01 14:04 | HP.PTREVAL_ITS ---
Dr. Destiny Randall, DO, It has been my pleasure to treat ROSANNE MCCLAIN over the last 33 visits for 3-15-22 R meniscal repair. Please see the progress note below for an update on the physical therapy plan of care! Subjective: Pt reports that her knee was really good this morning but as the day goes on it gets worse. Yesterday she was able to do eccentric step downs with the 8 inch step with less pain. Pt feels she is gaining strength and her leg is not giving out but she still has pain at some point every day. She still can not go up and down the stairs recip and still can not get out of a chair and walk without having to work out of the stiffness. Objective/Function: Poor SLB but able to put weight through her R foot on blue foam. Still walks with decrease stance time on the Plan Plan: 1-3X/ week for 10 weeks for R hip and knee strength and ROM, gait training, functional transfers, stairs, balance with HEP 1 X/ week in [place] and 2X/ week on land. HEP: SLR, S/L hip abd, prone hip ext, heel slides, QS Balance/Gait/Functional tests - Balance/Special Test Scores Lower Extremity Functional Score: 53 Goals Goal 1:: I HEP Goal Time Frame: 4-6 Weeks Goal Progress: Goal Met Goal 2:: Increase R knee AROM 0-120 degrees pain free Goal Time Frame: 4-6 Weeks Goal 3:: Be able to go up and down the steps recip with 1 hand rail for balance without any signs of weakness or pain Goal Time Frame: 4-6 Weeks Goal Progress: Progressing Goal 4:: Be able to walk with a normal gait pattern without any antalgic gait Goal Time Frame: 4-6 Weeks Goal Progress: Progressing Goal 5:: Be able to do 6 inch step ups without pain to lead to stairs. Goal Time Frame: 6-8 Weeks Goal 6:: Be able to walk the dog about a mile without pain. Goal Time Frame: 6-8 Weeks Anticipated Interventions Patient/Client Instruction: Educate patient on: Condition, Plan of Care For the Purpose of:: To decrease pain, To decrease swelling/inflammation, To increase ROM, To improve nutrient delivery to tissue, To improve muscle performance and motor function, To improve ability to perform ADL's, To increase tolerance to activity/condition/position, To improve performance and independenc e with ADL's, To decrease level of supervision to perform tasks, To improve ability of physical actions for home/community/work/leisure, To improve gait and locomotor functions, To improve health of tissue, To decrease soft tissue restriction, To increase flexibility/ROM, To improve balance Therapeutic Exercise to Include: Strength training, Endurance training, Balance training, Flexibilty training, Gait and locomotor training, Neuromotor development, Passive ROM, Active ROM For the Purpose of:: To decrease pain, To decrease swelling/inflammation, To increase ROM, To improve nutrient delivery to tissue, To improve muscle performance and motor function, To improve ability to perform ADL's, To increase tolerance to activity/condition/position, To improve performance and independence with ADL's, To decrease level of supervision to perform tasks, To improve ability of physical actions for home/community/work/leisure, To improve gait and locomotor functions, To improve health of tissue, To decrease soft tissue restriction, To increase flexibility/ROM, To improve balance, To improve safety with gait Functional Training to Include: Gait training For the Purpose of:: To improve gait and locomotor functions, To improve safety with gait Please do not hesitate to contact me at [phone] by phone or if you have questions or concerns regarding this new plan of care! Sincerely, COY Staton
--- NOTE | 2022-01-05 17:51 | HP.PTREVAL ---
Dr. Destiny Randall, DO, It has been my pleasure to treat ROSANNE MCCLAIN over the last 49 visits for 3-15-22 R meniscal repair. Please see the progress note below for an update on the physical therapy plan of care! Subjective: Pt feels pretty good today. She walked a mile yesterday and she worked in the garden yesterday. Her question is why is the pain still there? She still does stairs one step at a time. She can go down better recip at times with a railing but still step 2 pattern. She can do curbs well. Even today she was surprised at she was turning and there was a dip in the grass and she did not feel any pain. She wants to walk longer distances and going up and down stairs recip, going up incline and feels that she is dragging her leg a little bit. Objective/Function: R knee ext strength 14.4. R knee flex 18.2. R knee AROM -1 degree to 120 degrees. Stairs up and down not recip but if tries has increase pain and some weakness. Gait: still favors L LE with walking. PN written and hand carried by pt to Dr office Plan Plan: 1-3X/ week for 10 weeks for R hip and knee strength and ROM, gait training, functional transfers, stairs, balance with HEP 1 X/ week in [place] and 2X/ week on land. Balance/Gait/Functional tests - Balance/Special Test Scores Lower Extremity Functional Score: 56 Goals Goal 1:: I HEP Goal Time Frame: 4-6 Weeks Goal Progress: Goal Met Goal 2:: Increase R knee AROM 0-120 degrees pain free Goal Time Frame: 4-6 Weeks Goal Progress: Goal Met Goal 3:: Be able to go up and down the steps recip with 1 hand rail for balance without any signs of weakness or pain Goal Time Frame: 4-6 Weeks Goal Progress: Progressing Goal 4:: Be able to walk with a normal gait pattern without any antalgic gait Goal Time Frame: 4-6 Weeks Goal Progress: Progressing Goal 5:: Be able to do 6 inch step ups without pain to lead to stairs. Goal Time Frame: 6-8 Weeks Goal Progress: Goal Met Goal 6:: Be able to walk the dog about a mile without pain. Goal Time Frame: 6-8 Weeks Goal Progress: Progressing Anticipated Interventions Patient/Client Instruction: Educate patient on: Condition, Plan of Care For the Purpose of:: To decrease pain, To decrease swelling/inflammation, To increase ROM, To improve nutrient delivery to tissue, To improve muscle performance and motor function, To improve ability to perform ADL's, To increase tolerance to activity/condition/position, To improve performance and independence with ADL's, To decrease level of supervision to perform tasks, To improve ability of physical actions for home/community/work/leisure, To improve gait and locomotor functions, To improve health of tissue, To decrease soft tissue restriction, To increase flexibility/ROM, To improve balance Therapeutic Exercise to Include: Strength training, Endurance training, Balance training, Flexibilty training, Gait and locomotor training, Neuromotor development, Passive ROM, Active ROM For the Purpose of:: To decrease pain, To decrease swelling/inflammation, To increase ROM, To improve nutrient delivery to tissue, To improve muscle performance and motor function, To improve ability to perform ADL's, To increase tolerance to activity/condition/position, To improve performance and independence with ADL's, To decrease level of supervision to perform tasks, To improve ability of physical actions for home/community/work/leisure, To improve gait and locomotor functions, To improve health of tissue, To decrease soft tissue restriction, To increase flexibility/ROM, To improve balance, To improve safety with gait Functional Training to Include: Gait training For the Purpose of:: To improve gait and locomotor functions, To improve safety with gait Please do not hesitate to contact me at [phone] by phone or if you have questions or concerns regarding this new plan of care! Sincerely, Nicky Mazariegos MPT
--- NOTE | 2022-02-22 10:03 | HP.PTREVAL_ITS ---
Dr. Destiny Randall, DO, It has been my pleasure to treat ROSANNE MCCLAIN over the last 59 visits for 3-15-22 R meniscal repair. Please see the progress note below for an update on the physical therapy plan of care! Subjective: She hurt pretty good last night. She walked a little this morning and pain maybe a 1/10. Pt RTD on and she leaves for out of town at the end of the month. She was approved for her gel injection and will talk to the Dr about it on . Objective/Function: She can walk the dog a mile but still has pain. stairs: still struggles with weakness when ascending the stairs and has to pull self up with the railing. She does better when using the L railing as she is not having as much weight through that R leg. Walk...slight decreased stance time on the R. Pain is more along the Quad tendon insertion today instead of over the tibial plateau and she says the pain does move some. Plan Plan: Hold chart until after the Dr appt on and pt will call me and let me know the POC. 1-3X/ week for 10 weeks for R hip and knee strength and ROM, gait training, functional transfers, stairs, balance with HEP 1 X/ week in [place] and 2X/ week on land. Balance/Gait/Functional tests - Balance/Special Test Scores Lower Extremity Functional Score: 62 Goals Goal 1:: I HEP Goal Time Frame: 4-6 Weeks Goal Progress: Goal Met Goal 2:: Increase R knee AROM 0-120 degrees pain free Goal Time Frame: 4-6 Weeks Goal Progress: Goal Met Goal 3:: Be able to go up and down the steps recip with 1 hand rail for balance without any signs of weakness or pain Goal Time Frame: 4-6 Weeks Goal Progress: Progressing Goal 4:: Be able to walk with a normal gait pattern without any antalgic gait Goal Time Frame: 4-6 Weeks Goal Progress: Progressing Goal 5:: Be able to do 6 inch step ups without pain to lead to stairs. Goal Time Frame: 6-8 Weeks Goal Progress: Goal Met Goal 6:: Be able to walk the dog about a mile without pain. Goal Time Frame: 6-8 Weeks Goal Progress: Progressing Anticipated Interventions Patient/Client Instruction: Educate patient on: Condition, Plan of Care For the Purpose of:: To decrease pain, To decrease swelling/inflammation, To increase ROM, To improve nutrient delivery to tissue, To improve muscle performance and motor function, To improve ability to perform ADL's, To increase tolerance to activity/condition/position, To improve performance and independence with ADL's, To decrease level of supervision to perform tasks, To improve ability of physical actions for home/community/work/leisure, To improve gait and locomotor functions, To improve health of tissue, To decrease soft tissue restriction, To increase flexibility/ROM, To improve balance Therapeutic Exercise to Include: Strength training, Endurance training, Balance training, Flexibilty training, Gait and locomotor training, Neuromotor development, Passive ROM, Active ROM For the Purpose of:: To decrease pain, To decrease swelling/inflammation, To increase ROM, To improve nutrient delivery to tissue, To improve muscle pe rformance and motor function, To improve ability to perform ADL's, To increase tolerance to activity/condition/position, To improve performance and independence with ADL's, To decrease level of supervision to perform tasks, To improve ability of physical actions for home/community/work/leisure, To improve gait and locomotor functions, To improve health of tissue, To decrease soft tissue restriction, To increase flexibility/ROM, To improve balance, To improve safety with gait Functional Training to Include: Gait training For the Purpose of:: To improve gait and locomotor functions, To improve safety with gait Please do not hesitate to contact me at [phone] by phone or if you have questions or concerns regarding this new plan of care! Sincerely, Nicky Mazariegos MPT
--- NOTE | 2022-03-09 12:03 | HP.PTDCSUM ---
It has been my pleasure to treat ROSANNE MCCLAIN referred by Dr. Destiny Randall DO, with the diagnosis of 07-27-21 R meniscal repair for a total of 63 visit(s). Discharge Date: 03/09/22 Please see the following information for a summary of their discharge status. Subjective: Pt is going on vacation for a month. She will continue with her HEP. She will be getting her gel shots here in April. R knee pain Pain Intensity (Out of 10): 1 % Improvement: 90 Objective/Function: Pt feels that she is better. Ready to start the gel shots. She still struggles with eccentric control on the stairs and with slight antalgic gait. Goal 1:: I HEP Goal Progress: Goal Met Goal 2:: Increase R knee AROM 0-120 degrees pain free Goal Progress: Goal Met Goal 3:: Be able to go up and down the steps recip with 1 hand rail for balance without any signs of weakness or pain Goal Progress: Progressing Goal 4:: Be able to walk with a normal gait pattern without any antalgic gait Goal Progress: Progressing Goal 5:: Be able to do 6 inch step ups without pain to lead to stairs. Goal Progress: Goal Met Goal 6:: Be able to walk the dog about a mile without pain. Goal Progress: Progressing Plan: DC PT to HEP Discharge Comments: DC PT to HEP If there are questions or concerns regarding this patient's physical therapy, please feel free to call me at [phone]. Thank you for the referral of this patient. Sincerely, Nicky Mazariegos, MPT Balance/Gait/Functional tests - Balance/Special Test Scores Lower Extremity Functional Score: 62
== END 2022-03-07 19:00 | disposition home or self-care (01) ==
LOC: PT 11:30
PROVIDERS: PCP Family Medicine; Referring Provider Orthopaedic Surgery; Visit Provider Orthopaedic Surgery
DX: S83.241A Other tear of medial meniscus, current injury, right knee, initial encounter (principal)
CPT/HCPCS: 97110; 97113; 97161; 97530

== ENCOUNTER 2022-04-27 10:00 | Outpatient (RCR) | payer OTHER, SELFPAY ==
--- NOTE | 2022-04-18 10:58 | HP.PTEVAL ---
Patient's Visit Information ROSANNE MCCLAIN is a 61 year old F referred to Physical Therapy by Dr. Destiny Randall DO with a diagnosis of Weakness, balance problems, Pes Anserinus R knee, OA R knee. Date of Evaluation: 04/18/22 Physical Therapist: COY Staton - Visit Plan Frequency: 2x /Week Duration: 3 Weeks Plan: 2X/ week for 3 weeks for eccentric and concentric R knee strength as pertains to stair stepping, single leg balance, general R knee strength, gait training with HEP. Gym Routine: R Leg press seated (legs 4) 80# 2 X 15. Double leg press seated (legs 4) 110# 2 X 15. Seated hip abd 70# 3 X 10. 6 inch eccentric step downs 3 X 10 with heavy use of the L // bar - Subjective Pt got her first gel shot last Monday. She did really well in [facility]. She has a little of pain when she walks. She was walking 2 miles a day when she was in [place]. Her next shot is this Monday and next Monday. She still can not do steps. She is still going 2 feet to a stair with a railing. She is wondering if she should continue PT. She was going to pool in [place] and walking until it got too cold. Balance has been good. - Pain R knee pain Pain Intensity (Out of 10): 0 - Objective Gait: Pt walks with slight increase stance time on the L LE. Increase pain with walking on toes and not on heels. LE MMT: R hip flex 11.9 and L 7.6#. R knee ext 21.9# and L knee ext 17.9. R knee flex 13.9# and 14.6#. R hip abd 4-/5 and L hip abd 4/5. Single leg balance R 3-5 seconds and L leg 7 seconds. R knee AROM: -3 degrees from full ext 120 degrees knee flexion. L knee AROM: -3 degrees from full ext and 125 degrees knee flexion. Stairs: up and down recip but no strength to ascend or descend the stairs on the R even with a railing.... pt can not control her strength to get up the stairs. Slant Board stretch 30 sec X 3 - Balance/Special Test Scores Lower Extremity Functional Score: 61 - Goals Goal 1:: I HEP Goal Time Frame: 4-6 Weeks Goal 2:: Up and down the stairs recip with 2 hand rails with little sign of weakness Goal Time Frame: 4-6 Weeks Goal 3:: increase SLB on the R to 7 seconds Goal Time Frame: 4-6 Weeks - Rehabilitation Potential Rehabilitation Potential: Good - Anticipated Interventions Patient/Client Instruction: Educate patient on: Condition, Plan of Care For the Purpose of:: To decrease pain, To increase ROM, To improve nutrient delivery to tissue, To increase oxygenation perfusion, To improve ability to perform ADL's, To increase tolerance to activity/condition/position, To improve performance and independence with ADL's, To improve gait and locomotor functions, To improve health of tissue, To decrease soft tissue restriction, To increase flexibility/ROM, To improve endurance, To improve balance Therapeutic Exercise to Include: Strength training, Endurance training, Balance training, Gait and locomotor training, Neuromotor development For the Purpose of:: To decrease pain, To increase ROM, To improve nutrient delivery to tissue, To improve muscle performance and motor function, To improve ability to perform ADL's, To increase tolerance to activity/condition/position, To improve performance and independence with ADL's, To improve ability of physical actions for home/community/work/leisure, To improve gait and locomotor functions, To improve health of tissue, To decrease soft tissue restriction, To increase flexibility/ROM, To improve balance Functional Training to Include: Gait training For the Purpose of:: To improve gait and locomotor functions Thank you for the opportunity to evaluate your patient. For Medicare and Medicare HMO plans, please review the plan of care and approve it. It will need to be FAXED BACK to us at [phone] for Medicare purposes. For Medicare only, by signing this I certify the plan of care. Please let me know if there are questions or concerns regarding this plan of care. Physician Signature: Date:
--- NOTE | 2022-04-29 14:31 | HP.PT.NRP ---
ROSANNE MCCLAIN was seen in my office for initial evaluation on 04/18/22. The following Plan of Care was established for this patient: Initial Frequency: 2x /Week Initial Duration: 3 Weeks Patient/Client Instruction: Educate patient on: Condition, Plan of Care For the Purpose of:: To decrease pain, To increase ROM, To improve nutrient delivery to tissue, To increase oxygenation perfusion, To improve ability to perform ADL's, To increase tolerance to activity/condition/position, To improve performance and independence with ADL's, To improve gait and locomotor functions, To improve health of tissue, To decrease soft tissue restriction, To increase flexibility/ROM, To improve endurance, To improve balance Therapeutic Exercise to Include: Strength training, Endurance training, Balance training, Gait and locomotor training, Neuromotor development For the Purpose of:: To decrease pain, To increase ROM, To improve nutrient delivery to tissue, To improve muscle performance and motor function, To improve ability to perform ADL's, To increase tolerance to activity/condition/position, To improve performance and independence with ADL's, To improve ability of physical actions for home/community/work/leisure, To improve gait and locomotor functions, To improve health of tissue, To decrease soft tissue restriction, To increase flexibility/ROM, To improve balance Functional Training to Include: Gait training For the Purpose of:: To improve gait and locomotor functions This patient was last seen in our office . Pertinent comments regarding their Physical therapy will appear below: At this point I will be discontinuing this patient from physical therapy. I would be happy to see this patient again in the future if found appropriate by the physician. Thank you! Nicky Mazariegos, MPT Balance/Gait/Functional tests - Balance/Special Test Scores Lower Extremity Functional Score: 61
== END 2022-04-27 19:00 | disposition home or self-care (01) ==
LOC: PT 10:00
PROVIDERS: PCP Family Medicine; Referring Provider Orthopaedic Surgery; Visit Provider Orthopaedic Surgery
DX: R53.1 Weakness (principal); R26.89 Other abnormalities of gait and mobility; M70.51 Other bursitis of knee, right knee; M17.11 Unilateral primary osteoarthritis, right knee; S83.241D Other tear of medial meniscus, current injury, right knee, subsequent encounter; X58.XXXD Exposure to other specified factors, subsequent encounter
CPT/HCPCS: 97110; 97161

== ENCOUNTER → 2022-12-26 | Outpatient (CLI) | payer OTHER, SELFPAY ==
[2022-12-26 13:08] LABS: AST(SGOT) 19 U/L (15-37); Alanine Aminotransfer ALT/SGPT 24 U/L (13-56); Anion Gap 5 (5-15); BUN 17 mg/dL (7-18); BUN/Creat Ratio 23.5 RATIO (10-20); Calcium,Total 9.1 mg/dL (8.5-10.1); Chloride 102 mmol/L (98-107); Cholesterol 192 mg/dL (200); Creatinine, Serum 0.72 mg/dL (0.55-1.02); EST Glomerular Filtration Rate 86 mL/min (>60); Est Glom Filt Rate - Afr Amer 104 mL/min (>60); Glucose 97 mg/dL (74-106); High Density Lipoprotein 73 mg/dL; Sodium Level 136 mmol/L (136-145); T4 Total, Thyroxin 10.9 ug/dL (4.8-13.9); Thyroid Stim Hormone (TSH) 0.32 uIU/mL (0.358-3.74); Triglycerides 59 mg/dL; Very Low Density Lipoprotein 12 mg/dL (5-40)
[2022-12-26 13:09] LABS: Hemoglobin A1c 5.5 % (3.8-5.6)
== END | disposition home or self-care (01) ==
LOC: MFPLAB 11:29
PROVIDERS: PCP Family Medicine; Visit Provider Family Medicine
DX: E03.9 Hypothyroidism, unspecified (principal); E66.01 Morbid (severe) obesity due to excess calories; E78.5 Hyperlipidemia, unspecified; I10 Essential (primary) hypertension
CPT/HCPCS: 36415; 80048; 80061; 83036; 84436; 84443; 84450; 84460

== ENCOUNTER → 2023-01-31 | Outpatient (CLI) | payer OTHER, SELFPAY ==
--- NOTE | 2023-01-31 12:49 | ECHOD_ITS ---
Reason For Study: MURMUR Procedure This was a 2D Doppler, Color Flow transthoracic echocardiogram. Exam performed in department. Left Ventricle Normal LV size. Left ventricular systolic function is lower limits of normal. The left ventricular ejection fraction is 55 %. Stage 2 diastolic dysfunction. No regional wall motion abnormalities noted. Right Ventricle Normal RV size. Normal systolic function. Atria The left atrium is mildly enlarged. Normal right atrium. Mitral Valve Normal mitral valve. Mild (1+) eccentric mitral valve insufficiency. Tricuspid Valve Normal tricuspid valve. Mild (1+) tricuspid valve insufficiency. Pulmonary artery systolic pressure is 38 mmHg. Aortic Valve The aortic valve is not well visualized. Peak aortic valve gradient 21 mmHg. Mean aortic valve gradient 11 mmHg. Mild aortic stenosis. Pulmonic Valve Normal pulmonic valve. Great Vessels Normal aortic root. The pulmonary artery is normal size. Normal inferior vena cava. Pericardium/Pleural No pericardial effusion. MMode/2D Measurements & Calculations LVIDd: 5.3 cm IVSd: 0.94 cm LVOT diam: 1.8 cm LVIDs: 3.6 cm LVPWd: 0.90 cm LVOT area: 2.6 cm2 RVDd: 3.4 cm FS: 32.2 % Ao root diam: 3.3 cm LAV(MOD-sp4): 72.2 ml EDV(MOD-sp4): 115.1 ml ESV(MOD-sp4): 39.6 ml EF(MOD-sp4): 65.6 % EDV(MOD-sp2): 57.8 ml SV(MOD-sp4): 75.5 ml SV(MOD-sp2): 33.7 ml ESV(MOD-sp2): 24.1 ml EF(MOD-sp2): 58.3 % LA A4 area: 23.5 cm2 LA dimension(2D): 4.1 cm RA A4 area: 18.3 cm2 TAPSE: 2.2 cm Time Measurements MV dec time: 0.22 sec Doppler Measurements & Calculations MV E max ric: 124.7 cm/sec Lat Peak E' Ric: 11.0 cm/sec Med Peak E' Ric: 7.3 cm/sec MV A max ric: 67.4 cm/sec E/E' lat: 11.3 E/E' med: 17.2 MV E/A: 1.9 MV V2 max: 138.4 cm/sec Ao V2 max: 229.9 cm/sec MV max P.7 mmHg MV dec slope: 683.3 cm/sec2 Ao max P.2 mmHg MV V2 mean: 54.6 cm/sec Ao V2 mean: 153.2 cm/sec MV mean P.6 mmHg Ao mean P.9 mmHg MV V2 VTI: 45.1 cm Ao V2 VTI: 60.8 cm AV (velocity ratio): 0.76 MVA(VTI): 2.7 cm2 JEFFREY(I,D): 2.0 cm2 JEFFREY(V,D): 1.9 cm2 LV V1 max: 169.5 cm/sec SV(LVOT): 122.1 ml PA V2 max: 99.4 cm/sec LV V1 max P.5 mmHg PA V2 mean: 63.8 cm/sec LV V1 mean P.1 mmHg LV V1 mean: 115.7 cm/sec LV V1 VTI: 46.4 cm TR max ric: 291.8 cm/sec TR max P.1 mmHg ECHO/Echo Complete Interpretation Summary Normal LV size. Left ventricular systolic function is lower limits of normal. The left ventricular ejection fraction is 55 %. The left atrium is mildly enlarged. Pulmonary artery systolic pressure is 38 mmHg. Stage 2 diastolic dysfunction. Mean aortic valve gradient 11 mmHg. Mild aortic stenosis. Ordering Physician: Rose Mary Ocasio Referring Physician: Rose Mary Ocasio Performed By: Alice Jaimes, KYLECS, RVT
== END | disposition home or self-care (01) ==
LOC: CVS 12:48
PROVIDERS: PCP Family Medicine; Referring Provider Family Medicine; Visit Provider Family Medicine
DX: R01.1 Cardiac murmur, unspecified (principal)
CPT/HCPCS: 93306

== ENCOUNTER → 2023-02-21 | Outpatient (CLI) | payer OTHER, SELFPAY ==
--- NOTE | 2023-02-21 09:26 | BI_ITS ---
MAMMOGRAPHY - BILATERAL SCREENING REASON FOR EXAM: Female, 62 years old. Routine annual screening examination. PERTINENT HISTORY: Non-contributory. Bilateral breast reduction surgery. TECHNIQUE: Digital bilateral breast aditi (3D mammographic acquisition) in the CC and MLO projections. 2-D mediolateral oblique (MLO) and craniocaudad (CC) views of both breasts were obtained. CAD: Full Field Digital Mammography with Computer Added Detection was performed. COMPARISON: Comparison is made with prior study dated February 15, 2022 and January 28, 2021. FINDINGS: Breast Composition: The breasts are almost entirely fatty. There are no dominant masses or suspicious calcifications. Stable small benign-appearing bilateral axillary lymph nodes. No other significant abnormalities are identified. There has been no significant change since the prior study. BI/SCRN MAMM (CAD)W/ADITI BILAT IMPRESSION: Stable bilateral screening mammogram. Yearly follow-up mammogram recommended. (A) ASSESSMENT CATEGORY: BIRADS Category 2: Benign. A letter regarding these results will be sent to the patient by the facility within 30 days. Approximately 10% of breast cancers are not detected by mammography. A normal mammogram should not delay biopsy of a clinically suspicious abnormality. [id number] Electronically Signed: Brian Negrete MD at 14:57 EDT ,
--- NOTE | 2023-02-21 09:30 | BD_ITS ---
STUDY: DUAL ENERGY X-RAY ABSORPTIOMETRY / DXA REASON FOR EXAM: Female, 62 years old. V76.12ScreeningBONE DENSITY REASON FOR EXAM TECHNIQUE: Bone Mineral Density (BMD) measurements of lumbar spine and bilateral hips were obtained. COMPARISON: Comparison is made with prior examination of July 01, 2014. FINDINGS: Lumbar Spine (L1-L4): g/cm2 (1.081) / T-score (0.3) / Z-score (2.0) Findings are suggestive of normal bone density with a low fracture risk. Left Femur Total: g/cm2 (1.086) / T-score (1.2) / Z-score (2.4) Left Femoral Neck: g/cm2 (0.876) / T-score (0.2) / Z-score (1.7) Right Femur Total: g/cm2 (0.948) / T-score (0.0) / Z-score (1.2) Right Femoral Neck: g/cm2 (0.906) / T-score (0.5) / Z-score (2.0) The T-Scores on the most recent prior examination were: Lumbar Spine (L1-L4): There has been worsening of bone density since the previous examination. Left Femur Total: which represents a worsening of 5.8%. Right Femur Total: which represents a worsening of 15.3%. BD/Dexa Bone Density Study IMPRESSION: The patient is considered normal as outlined below according to World [place] Organization (WHO) criteria with a low fracture risk. There has been worsening of bone density since the previous examination. Reference Information: The T-score is the number of standard deviations above or below the standard which is normal for young adults at their peak bone mineral density. The World Health Organization (WHO) interprets the T-scores as follows: Above -1 Normal bone density Between -1 and -2.5 Osteopenia Equal to / or below -2.5 Osteoporosis As a practical clinical guideline, osteopenia may be graded as follows: Mild -1 through -1.5 Moderate -1.6 through -2.0 Severe -2.1 through -2.4 The Z-score is the number of standard deviations above or below age-matched controls. A Z-score of less than -1.5 would be considered abnormal. References: 1. NIH Osteoporosis and Related Bone Diseases www osteo.org 2. International Society for Clinical Densitometry www iscd.org 3. National Osteoporosis Foundation www nof.org Electronically Signed: Brian Negrete MD at 12:46 EDT ,
== END | disposition home or self-care (01) ==
PROVIDERS: PCP Family Medicine; Referring Provider Family Medicine; Visit Provider Family Medicine
DX: N95.9 Unspecified menopausal and perimenopausal disorder (principal); Z12.31 Encounter for screening mammogram for malignant neoplasm of breast
CPT/HCPCS: 77063; 77067; 77080

== ENCOUNTER → 2024-02-23 | Outpatient (CLI) | payer MEDICARE, SELFPAY ==
--- NOTE | 2024-02-23 10:39 | BI_ITS ---
MAMMOGRAPHY - BILATERAL SCREENING REASON FOR EXAM: Female, 63 years old. Routine annual screening examination. PERTINENT HISTORY: Non-contributory. Prior bilateral breast reduction surgery. TECHNIQUE: Digital bilateral breast aditi (3D mammographic acquisition) in the CC and MLO projections. 2-D mediolateral oblique (MLO) and craniocaudad (CC) views of both breasts were obtained. CAD: Full Field Digital Mammography with Computer Added Detection was performed. COMPARISON: Comparison is made with prior study dated February 21, 2023 and February 15, 2022. FINDINGS: Breast Composition: The breasts are almost entirely fatty. There are no dominant masses or suspicious calcifications. Stable postoperative linear scarring seen in both breasts on the mediolateral oblique view. Stable small benign-appearing bilateral axillary lymph nodes. No other significant abnormalities are identified. There has been no significant change since the prior study. BI/SCRN MAMM (CAD)W/ADITI BILAT IMPRESSION: Stable bilateral screening mammogram. Yearly follow-up mammogram recommended. (A) ASSESSMENT CATEGORY: BIRADS Category 2: Benign. A letter regarding these results will be sent to the patient by the facility within 30 days. Approximately 10% of breast cancers are not detected by mammography. A normal mammogram should not delay biopsy of a clinically suspicious abnormality. [id number] Electronically Signed: Brian Negrete MD at 14:06 EDT ,
== END | disposition home or self-care (01) ==
LOC: OPBI 10:39
PROVIDERS: PCP Family Medicine; Referring Provider Family Medicine; Visit Provider Family Medicine
DX: Z12.31 Encounter for screening mammogram for malignant neoplasm of breast (principal)
CPT/HCPCS: 77063; 77067

== ENCOUNTER → 2024-02-26 | Outpatient (CLI) | payer MEDICARE, SELFPAY ==
[2024-02-26 16:18] LABS: AST(SGOT) 24 U/L (15-37); Alanine Aminotransfer ALT/SGPT 22 U/L (13-56); Anion Gap 9 (5-15); BUN 19 mg/dL (7-18); BUN/Creat Ratio 29.9 RATIO (10-20); Calcium,Total 9.8 mg/dL (8.5-10.1); Chloride 98 mmol/L (98-107); Cholesterol 196 mg/dL (200); Creatinine, Serum 0.64 mg/dL (0.55-1.02); EST Glomerular Filtration Rate 100 mL/min (>60); Est Glom Filt Rate - Afr Amer 121 mL/min (>60); Glucose 91 mg/dL (74-106); High Density Lipoprotein 64 mg/dL; Potassium 3.4 mmol/L (3.5-5.1); Sodium Level 133 mmol/L (136-145); T4 Total, Thyroxin 11.9 ug/dL (4.8-13.9); Thyroid Stim Hormone (TSH) 0.074 uIU/mL (0.358-3.740); Triglycerides 54 mg/dL; Very Low Density Lipoprotein 11 mg/dL (5-40)
[2024-02-26 17:38] LABS: Hemoglobin A1c 5.4 % (3.8-5.6)
== END | disposition home or self-care (01) ==
LOC: MFPLAB 11:34
PROVIDERS: PCP Family Medicine; Visit Provider Family Medicine
DX: Z00.00 Encounter for general adult medical examination without abnormal findings (principal); E78.5 Hyperlipidemia, unspecified
CPT/HCPCS: 36415; 80048; 80061; 83036; 84436; 84443; 84450; 84460

== ENCOUNTER → 2024-04-03 | Outpatient (CLI) | payer MEDICARE, SELFPAY ==
--- NOTE | 2024-04-03 08:57 | ECHOD_ITS ---
Reason For Study: Murmur Procedure This was a 2D Doppler, Color Flow transthoracic echocardiogram. Exam performed in department. Left Ventricle Normal LV size. Left ventricular systolic function is normal. The left ventricular ejection fraction is 60 %. No regional wall motion abnormalities noted. Right Ventricle Normal RV size. Normal systolic function. Atria Normal left atrium. Normal right atrium. Mitral Valve Normal mitral valve. Mild (1+) eccentric mitral valve insufficiency. Tricuspid Valve Normal tricuspid valve. Mild (1+) tricuspid valve insufficiency. Pulmonary artery systolic pressure is 38 mmHg. Aortic Valve Trisinus/trileaflet aortic valve. Mild focal aortic valve calcification. Peak aortic valve gradient 22 mmHg. Mean aortic valve gradient 9 mmHg. Mild aortic stenosis. Pulmonic Valve Normal pulmonic valve. Great Vessels Normal aortic root. The pulmonary artery is normal size. Normal inferior vena cava. Pericardium/Pleural No pericardial effusion. MMode/2D Measurements & Calculations LVIDd: 4.8 cm IVSd: 0.81 cm LVOT diam: 1.8 cm LVIDs: 3.0 cm LVPWd: 0.76 cm LVOT area: 2.7 cm2 RVDd: 3.5 cm FS: 38.2 % Ao root diam: 3.3 cm LAV(MOD-bp): 73.8 ml LVAd ap4: 30.2 cm2 LAV(MOD-bp) Indexed: 33.7 ml/m2 LVLd ap4: 8.0 cm LAV(MOD-sp2): 69.9 ml EDV(MOD-sp4): 92.3 ml LAV(MOD-sp4): 76.6 ml EDV(sp4-el): 96.4 ml LVAs ap4: 15.8 cm2 LVLs ap4: 6.3 cm ESV(MOD-sp4): 33.4 ml ESV(sp4-el): 33.5 ml EF(MOD-sp4): 63.8 % EF(sp4-el): 65.2 % SV(MOD-sp4): 59.0 ml SV(sp4-el): 62.9 ml Ao sinus diam: 2.7 cm SI(MOD-sp4): 26.9 ml/m2 Ao ST Junction: 1.8 cm LA A4 area: 24.0 cm2 LA dimension(2D): 4.2 cm TAPSE: 2.4 cm RA A4 area: 16.8 cm2 Time Measurements MV dec time: 0.21 sec Doppler Measurements & Calculations MV E max ric: 113.6 cm/sec Lat Peak E' Ric: 11.1 cm/sec Med Peak E' Ric: 8.7 cm/sec MV A max ric: 63.1 cm/sec E/E' lat: 10.3 E/E' med: 13.1 MV E/A: 1.8 MV V2 max: 139.8 cm/sec MV P1/2t max ric: 139.8 cm/sec Ao V2 max: 233.2 cm/sec MV max P.8 mmHg MV P1/2t: 82.1 msec Ao max P.8 mmHg MV V2 mean: 50.6 cm/sec MV dec slope: 498.6 cm/sec2 Ao V2 mean: 140.8 cm/sec MV mean P.5 mmHg Ao mean P.5 mmHg MV V2 VTI: 51.1 cm MVA(P1/2t): 2.7 cm2 Ao V2 VTI: 58.7 cm MVA(VTI): 2.4 cm2 AV (velocity ratio): 0.80 JEFFREY(I,D): 2.1 cm2 JEFFREY(V,D): 1.9 cm2 LV V1 max: 168.1 cm/sec SV(LVOT): 124.9 ml PA V2 max: 111.2 cm/sec LV V1 max P.3 mmHg PA V2 mean: 75.7 cm/sec LV V1 mean P.2 mmHg LV V1 mean: 117.5 cm/sec LV V1 VTI: 46.7 cm TR max ric: 291.9 cm/sec TR max P.1 mmHg ECHO/Echo Complete Interpretation Summary Normal LV size. Left ventricular systolic function is normal. The left ventricular ejection fraction is 60 %. Mild (1+) eccentric mitral valve insufficiency. Pulmonary artery systolic pressure is 38 mmHg. Mean aortic valve gradient 9 mmHg. Mild aortic stenosis. Ordering Physician: Yahir Tesfaye Referring Physician: Rose Mary Ocasio M.D. Performed By: Migue Shelton RCS
== END | disposition home or self-care (01) ==
LOC: CVS 08:55
PROVIDERS: PCP Family Medicine; Referring Provider Internal Medicine Cardiovascular Disease; Visit Provider Internal Medicine Cardiovascular Disease
DX: I35.0 Nonrheumatic aortic (valve) stenosis (principal); I10 Essential (primary) hypertension
CPT/HCPCS: 93306

== ENCOUNTER → 2024-05-10 | Outpatient (CLI) | payer MEDICARE, SELFPAY ==
[2024-05-10 12:53] LABS: AST(SGOT) 21 U/L (15-37); Alanine Aminotransfer ALT/SGPT 20 U/L (13-56); Anion Gap 2 (5-15); BUN 19 mg/dL (7-18); BUN/Creat Ratio 30.4 RATIO (10-20); Calcium,Total 9.1 mg/dL (8.5-10.1); Chloride 102 mmol/L (98-107); Cholesterol 188 mg/dL (200); Creatinine, Serum 0.63 mg/dL (0.55-1.02); EST Glomerular Filtration Rate 101 mL/min (>60); Est Glom Filt Rate - Afr Amer 123 mL/min (>60); Glucose 107 mg/dL (74-106); High Density Lipoprotein 65 mg/dL; Potassium 3.9 mmol/L (3.5-5.1); Sodium Level 134 mmol/L (136-145); T4 Total, Thyroxin 8.5 ug/dL (4.8-13.9); Thyroid Stim Hormone (TSH) 0.145 uIU/mL (0.358-3.740); Triglycerides 64 mg/dL; Very Low Density Lipoprotein 13 mg/dL (5-40)
[2024-05-10 13:24] LABS: Protein, Urine (Random) < 6.0 mg/dL (<11.9); Protein:Creat Ratio 187 mg/g CRE (0-200)
[2024-05-10 13:59] LABS: Hemoglobin A1c 5.3 % (3.8-5.6)
== END | disposition home or self-care (01) ==
LOC: MFPLAB 09:09
PROVIDERS: PCP Family Medicine; Referring Provider Family Medicine; Visit Provider Family Medicine
DX: I10 Essential (primary) hypertension (principal); E66.01 Morbid (severe) obesity due to excess calories; E78.5 Hyperlipidemia, unspecified; E03.9 Hypothyroidism, unspecified
CPT/HCPCS: 36415; 80048; 80061; 82570; 83036; 84156; 84436; 84443; 84450; 84460

== ENCOUNTER 2024-09-13 13:04 | Emergency (ER) | payer MEDICARE, SELFPAY ==
[2024-09-13 13:06] VITALS: BP 108/95; PULSE 69; RESP 16; TEMP 36.6; O2SAT 94; BMI 39.0
--- NOTE | 2024-09-13 13:15 | RAD_ITS ---
PROCEDURE: WRIST MIN 3 VIEWS 09/13/2024 REASON FOR EXAM: FALL TECHNIQUE: 3 views of the left wrist COMPARISON: None. FINDINGS: Bones: Acute, mildly complex extra-articular fracture of the left distal radius with dorsal angulation. No ulnar fracture. Joints: The fracture extends into the radioulnar joint. Soft tissues: Soft tissue swelling. RAD/Wrist min 3 Views IMPRESSION: Acute fracture of the left distal radius (Colles fracture). Subsequent wrist i maging demonstrates left wrist casting. Reading Location: [id number]
--- NOTE | 2024-09-13 13:16 | EX.ED.UPPERE ---
HPI History of Present Illness HPI Narrative: 63-year-old female [id number]. Was walking her dog slipped on wet and muddy sidewalk and when she fell she landed awkwardly on her left wrist. This occurred less than an hour ago. She also landed on her knees. But denies any significant knee or hip pain. She did not hit her head. No LOC. No blood thinners. Prior to the fall she was feeling fine. She has never had any surgery to her left upper extremity or wrist. Chief Complaint: Upper Extremity Injury Occured/Mechanism Mechanism/Context: Yes injury and Yes blunt trauma Onset/Context/Timing Onset: Today Context: Sudden Onset Timing: Continuous Quality of Pain: Sharp Current Severity: Moderate Maximum Severity: Moderate Associated Symptoms Associated Symptoms: Negative for Parasthesia, Weakness or Loss of Funtion Narrative Narrative: 67-year-old female walking her dog slipped on a wet muddy sidewalk injuring her left wrist. No LOC. No head injury. Prior similar symptoms: No Recent Illness/Hospitalization: No PFSH PFSH Medical History Essential (primary) hypertension Hyperlipidemia Postmenopausal bleeding Home Medications ?Medication ?Instructions ?Recorded ?Last Taken ?Type levothyroxine 125 mcg tablet 125 mcg PO DAILY 03/18/15 10/05/17 08:00 History liothyronine 25 mcg tablet 25 mcg PO DAILY 03/18/15 10/05/17 08:00 History cholecalciferol (vitamin D3) 50 2,000 unit PO DAILY 04/13/18 Unknown History mcg (2,000 unit) capsule (Vitamin D3) ibuprofen 600 mg tablet 600 mg PO TID PRN Pain #30 tabs 04/20/18 Unknown Rx Held on 04/19/21. Instructions: Order Changed fexofenadine 180 mg tablet 180 mg PO DAILY PRN 03/27/23 Unknown History fluticasone propionate 50 2 spray intranasal 03/27/23 Unknown History mcg/actuation nasal spray,suspension magnesium chloride 64 mg 64 mg PO DAILY 03/27/23 Unknown History (magnesium chloride) tablet,delayed release melatonin 3 mg capsule 3 mg PO HS PRN 03/27/23 Unknown History omega-3 fatty acids 1,000 mg 1,000 mg PO DAILY 03/27/23 Unknown History capsule amlodipine 5 mg tablet 5 mg PO DAILY #90 tabs 07/12/23 Unknown Rx hydrochlorothiazide 25 mg tablet 12.5 mg PO QDAY 04/08/24 Unknown History metoprolol succinate 25 mg 25 mg PO DAILY #90 tabs 05/27/24 Unknown Rx tablet,extended release 24 hr hydrocodone-acetaminophen 5-325mg 1 tab PO Q4H PRN PRN Pain 5 days 09/13/24 Unknown Rx 5mg-325mg #14 TABLETS Allergy/AdvReac Type Severity Reaction Status Date / Time ramipril (From Altace) Allergy Swelling Verified 09/13/24 13:08 ARB-Angiotensin Receptor AdvReac Severe Angioedema Verified 09/13/24 13:08 Antagonist Family History Mother Hypertension CVA (cerebral vascular accident) Diabetes Father Hypertension Cancer Grandmother CAD (coronary artery disease) Surgical History S/P hysterectomy Social History Smoking Status: Never smoker alcohol intake: current substance use type: does not use ROS ROS ED ROS Narrative Denies recent illness. Constitutional Constitutional ED: Denies chills or fever(s) Eyes Eyes: Denies blurry vision ENT ENT ED: Denies ear pain Cardiovascular Cardiovascular: Denies chest pain Respiratory/Chest Respiratory/Chest: Denies cough or dyspnea Gastrointestinal Gastrointestinal: Denies abdominal pain Genitourinary Genitourinary ED: Denies dysuria Musculoskeletal Musculoskeletal: Denies back pain Integumentary Reports Abrasions; Denies abscess Neurologic Neurologic: Denies headache(s) Psychiatric Psychiatric: Denies anxiety or depression Endocrine Endocrinology: Denies cold intolerance Hematologic/Lymphatic Hematologic/Lymphatic: Denies easy bleeding, easy bruising or lymphadenopathy Allergic/Immunologic Allergic/Immunologic ED: Denies mouth swelling, tongue swelling or urticaria EXAM Physical Exam Narrative Exam Narrative: 63-year-old female sitting upright in bed. Vital signs are stable afebrile. Accompanied by her friend. H EENT exam pupils round reactive light. No trauma to her face or scalp. Nontender. Neck nontender. Trachea midline. C-spine nontender. Back and spine nontender. Lungs clear to auscultation bilaterally. Heart regular rhythm no murmur. Rate about 70. Chest wall and ribs nontender. Abdomen is soft and nontender. Pelvic girdle intact. Hips are nontender. No shortening or rotation. Normal range of motion. Left wrist is tender deformed. Normal radial pulse. Normal touch sensation and balancer strength. Normal cap refill. Skins intact. Proximal left forearm elbow upper arm and shoulder are nontender no deformity. Right upper extremity is nontender with normal balancer strength and range of motion. There is mild and abrasions on both knees and lower legs. However she has full flexion-extension of both hips knees and ankles. Normal dorsi plantarflexion. Normal strength and range of motion. Ligaments of the knees were checked out they were unremarkable. There is no effusion or bony deformity. I do not think either lower extremity knees x-rayed. Neurologically she is awake and alert no focal motor deficits. GCS 15. Answering questions following commands. Const Vital Signs: 09/13/24 13:06 Temperature 97.9 F Temperature Source Oral Pulse Rate 69 Respiratory Rate 16 Blood Pressure 108/95 H Blood Pressure Mean 99 Pulse Ox 94 Oxygen Delivery Method Room Air Positive well nourished and well developed; Negative for cachectic, contractures or unkempt General Appearance ED: well developed; Negative for unkempt, cachectic, contractures or diaphoretic Nutritional Appearance: Negative for cachectic HEENT Reports moist mucous membranes normocephalic and atraumatic; Negative for trauma or tenderness Eyes PERRL and EOMs intact bilaterally Neck full ROM and supple General: Negative for tenderness Chest Wall inspection of chest normal and palpation of chest normal Resp normal respiratory effort and clear to auscultation bilaterally Cardio regular rate, regular rhythm, S1 normal heart sound, S2 normal heart sound and no murmurs GI non-tender, non-distended and no masses Inspection: Negative for abdominal distention Auscultation: normoactive bowel sounds Palpation: soft; Negative for tender or guarding Back/Spine no CVA tenderness General Back: Negative for CVA tenderness Cervical Spine: Negative for cervical spine tenderness Thoracic Spine / Upper Back: Negative for thoracic spinal tenderness Lumbar Spine / Lower Back: Negative for lumbar spinal tenderness Extremity normal to inspection Extremity Narrative: Except left wrist. Tender. Swollen. Decreased range of motion. Palpable radial pulse. Skin intact. Left hand neurovascular intact with touch sensation. Able to wiggle her fingers. Normal cap refill. Both knees have mild abrasions. However full flexion extension of both hips, knees and ankles. No deformity. No effusion. Normal range of motion. General Extremety ED: Yes edema General Extremity: edema Neuro oriented x3, CN's II-XII intact bilaterally, moves all extremities, no focal motor deficits and no sensory deficits noted Sensorium / Orientation: alert, oriented to person, oriented to place and oriented to time; Negative for orientation impaired, lethargic or stuporous Motor Exam: strength 5/5 throughout Psych mental status grossly normal Appearance: Negative for unkempt Skin Lesions: no lesions Rashes: no rashes Trauma: abrasion MDM MDM MDM Narrative Medical decision making narrative: 63-year-old slipped and fell on a muddy sidewalk. Most likely has a fracture of the left wrist. X-ray being obtained. She only wanted Tylenol so far for pain. Lower extremities are unremarkable normal range of motion I do not think those needs x-rayed. She has no head injury. Repeat exam patient doing well at 2:20 PM. She has good sensation in her fingertips. Cap refill. I loosened the Donte wrap a little bit. She will get a sling and be discharged home with outpatient follow-up with the orthopedic physician of her choice. History & Record Review Discussion w/independent historian: Patient Lab Data Attestation: I reviewed the patient's lab results. Radiography Diagnostic Testing: Left wrist x-ray, 3 views, interpreted by myself shows Postreduction left wrist x-ray. Much better alignment of the fracture sites. It looks like a comminuted distal radius fracture with dorsal displacement that is been reduced. I did go over the postreduction film with the patient. Procedures Upper Extremity Splints Upper Extremity Splint: Orthoglass and Sling Splint Fabrication: Fabricated Location: Left (Displaced distal radius fracture. Discussed with patient she went to a hematoma block. Area was cleaned with alcohol. I did a posterior hematoma block on the distal radius fracture site. Reduced at fracture site and put in well-padded Ortho-Glass short arm AP splint. She tolerated it well. Pos) Discharge Plan Triage Chief Complaint: Upper Extremity Injury ED Provider: Ronn Mcgregor Dx/Rx/DC Orders Clinical Impression: Fall, Fracture of left wrist Instructions: ED Fracture, Wrist, General Prescriptions: New hydrocodone-acetaminophen 5-325 mg tablet 1 tab PO Q4H PRN PRN (Reason: Pain) 5 Days Qty: 14 0RF No Action hydrochlorothiazide 25 mg tablet 12.5 mg PO QDAY fexofenadine 180 mg tablet 180 mg PO DAILY PRN fluticasone propionate 50 mcg/actuation spray,suspension 2 spray intranasal Patient Comments: instill 2 sprays into each nostril once daily melatonin 3 mg capsule 3 mg PO HS PRN magnesium chloride 64 mg tablet,delayed release (DR/EC) 64 mg PO DAILY omega-3 fatty acids 1,000 mg capsule 1,000 mg PO DAILY liothyronine 25 MCG tablet 25 mcg PO DAILY levothyroxine 125 MCG tablet 125 mcg PO DAILY cholecalciferol (vitamin D3) [Vitamin D3] 2,000 UNIT capsule 2,000 unit PO DAILY ibuprofen 600 MG tablet 600 mg PO TID PRN (Reason: Pain) Qty: 30 0RF amlodipine 5 mg tablet 5 mg PO DAILY Qty: 90 3RF metoprolol succinate 25 mg tablet extended release 24 hr 25 mg PO DAILY Qty: 90 3RF Primary Care Provider: Rose Mary Ocasio Referrals: Rose Mary Ocasio MD [Primary Care Provider] - Jun Garcia MD [Med Staff - Active Staff] - As soon as possible Activity Restrictions/Additional Instructions: Left wrist distal radius fracture with displacement. Ice and elevate to decrease pain and swelling. Keep your fingertips above your wrist above your elbow so the swelling goes the other way. Keep the splint on. Keep it dry and clean. In the shower put in a plastic bag. Call and follow-up with orthopedics either Dr. Dash or Dr. Garcia as soon as possible. [place] for more severe pain. Otherwise you can use Tylenol and Motrin. If you are taking the [place] do not use additional Tylenol. Anytime you are using the narcotic pain medication like [place]. Plenty of fluids, fruits and vegetable and fiber and possibly a stool softener as needed to prevent constipation. Do not drink alcohol or drive while using the narcotic pain medication. Print Language: Faroese Disposition Disposition: Home, Self Care
[2024-09-13] MEDS: Acetaminophen 500 MG Tablet 1000 MG PO (13:28)
[2024-09-13] MEDS: Lidocaine 1% (20 ml mdv) 20 ML Vial INFILT (13:40)
--- NOTE | 2024-09-13 13:57 | RAD_ITS ---
PROCEDURE: WRIST MIN 3 VIEWS 09/13/2024 REASON FOR EXAM: POST REDUCTION TECHNIQUE: 3 views of the left wrist COMPARISON: Left wrist radiograph earlier same day. FINDINGS: Bones: Improved anatomic alignment of the left distal radial fracture status post reduction and casting. Joints: Articular extension of the fracture into the radioulnar joint. Soft tissues: Soft tissue swelling. RAD/Wrist min 3 Views IMPRESSION: Postreduction imaging as described. Reading Location: [id number]
[2024-09-13 15:00] VITALS: BP 168/67; PULSE 87; RESP 18; O2SAT 99
== END 2024-09-13 15:00 | disposition home or self-care (01) ==
PROVIDERS: Emergency Provider Emergency Medicine; PCP Family Medicine; Visit Provider Emergency Medicine
DX: S62.102A Fracture of unspecified carpal bone, left wrist, initial encounter for closed fracture (principal); I10 Essential (primary) hypertension; E78.5 Hyperlipidemia, unspecified; Z79.899 Other long term (current) drug therapy; W10.1XXA Fall (on)(from) sidewalk curb, initial encounter
CPT/HCPCS: 29125; 73110; 99283

== ENCOUNTER 2024-09-23 11:10 | Day surgery (SDC) | payer MEDICARE, SELFPAY ==
--- NOTE | 2024-09-19 13:28 | EKG12_ITS ---
Test Reason : PREOP Blood Pressure : */* mmHG Vent. Rate : 53 BPM Atrial Rate : 53 BPM P-R Int : 192 ms QRS Dur : 100 ms QT Int : 424 ms P-R-T Axes : 68 61 66 degrees QTcB Int : 397 ms Sinus bradycardia Otherwise normal ECG Confirmed by Jad Teixeira ([id number]), greeting card editor LAW KRAUSE ([id number]) on 09/20/2024 12:20:35 PM Referred By: Brian Garcia Confirmed By: Jad Teixeira
[2024-09-19 15:39] LABS: Anion Gap 13 (5-15); BUN 29 mg/dL (4-19); BUN/Creat Ratio 44.8 RATIO (10-20); Calcium,Total 9.6 mg/dL (7.6-11.0); Carbon Dioxide 23.6 mmol/L (21.0-32.0); Chloride 96 mmol/L (98-108); Creatinine, Serum 0.65 mg/dL (0.70-1.20); EST Glomerular Filtration Rate 98 (>60); Glucose 96 mg/dL (70-99); Potassium 4.1 mmol/L (3.3-5.1); Sodium Level 132 mmol/L (133-145); Thyroid Stim Hormone (TSH) 0.214 uIU/mL (0.300-4.200)
--- NOTE | 2024-09-19 16:52 | PAT.ANESEVAL ---
Pre-Assessment Diagnosis/Proposed Procedure Planned Operative Procedure(s): ORIF LEFT WRIST Anesthesia History Anesthesia History - director outpatient services: Anesthesia History - director outpatient services Hx Hospitalization No 09/19/24 12:25 Any Problems With Anesthesia No 09/19/24 12:25 Cholinesterase deficiency No 09/19/24 12:25 You/Your Family Experience No 09/19/24 12:25 fever (hyperthermia) with Relationship Recent Exposure to Contagious No 09/13/24 14:27 Disease Does patient have nerve No 09/19/24 12:25 stimulator Patient instructed to have device shut off --Does patient have Pacemaker or ICD? When Was Last Pacemaker Check QUESTION #4 FULL TEXT: You/Your Family Experience fever (hyperthermia) with Anesthesia Last Oral Intake Last Oral intake: Last Oral Intake NPO since Meds taken in AM with sips of water? Meds patient instructed to take am of surgery PONV PONV - director outpatient services: PONV - director outpatient services Female Yes 09/19/24 12:25 HX of Motion Sickness Yes 09/19/24 12:25 HX of N/V After Surgery No 09/19/24 12:25 Non-Smoker Yes 09/19/24 12:25 Duration of Surgery greater Yes 09/19/24 12:25 than 60 minutes Number of Risk Factors 4 09/19/24 12:25 PONV Score Severe Risk 09/19/24 12:25 Height & Weight Height & Weight: Anesthesia: Height & Weight Height 5 ft 2 in 09/18/24 08:32 Respiratory Assessment Respiratory Assessment - director outpatient services: Respiratory Tract Infection Hx - director outpatient services Hx Respiratory Tract Infection No 09/19/24 12:25 STOP Sleep Apnea STOP Sleep Apnea - director outpatient services: STOP Sleep Apnea - director outpatient services Hx Hypertension Yes: CONTROLLED WITH MED 09/19/24 12:25 Hx Sleep Apnea No 09/19/24 12:25 CPAP No 09/13/24 14:27 BIPAP No 09/13/24 14:27 Do you snore loudly (louder No 09/19/24 12:25 than talking or can be heard Do you often feel tired/ No 09/19/24 12:25 fatigued/ sleepy during daytime? Has anyone observed you stop No 09/19/24 12:25 breathing during sleep? STOP Results Negative 09/19/24 12:25 QUESTION #5 FULL TEXT : Do you snore loudly (louder than talking or can be heard through closed doors)? 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 Specify any problems Hx of Preganancy in last 3 N/A 09/19/24 12:25 Months Nurse Filling Out Transfusion NBUCHER 09/19/24 12:25 & Questions: Date: 09/19/24 09/19/24 12:25 Time: 12:27 09/19/24 12:25 Patient unable to answer at this time (ie. confused, unrespo /Reproduction History /Reproductive History - director outpatient services: /Reproductive Hx- director outpatient services Hx Now No 09/19/24 12:25 Gestational Age (in weeks): EDC: Hx Hx Para Hx Section SAB No 09/19/24 12:25 PFSH Medical History (Updated 09/19/24 @ 12:33 by Gloria Borges) Wears contact lenses Wears glasses Thyroid disease History of edema Non-smoker History of stress test Heart murmur History of echocardiogram Cardiology follow-up encounter Essential (primary) hypertension Hyperlipidemia Postmenopausal bleeding Home Medications ?Medication ?Instructions ?Recorded ?Last Taken ?Type levothyroxine 125 mcg tablet 100 mcg PO DAILY 03/18/15 09/13/24 History liothyronine 25 mcg tablet 25 mcg PO DAILY 03/18/15 09/13/24 History cholecalciferol (vitamin D3) 50 2,000 unit PO DAILY 04/13/18 09/13/24 History mcg (2,000 unit) capsule (Vitamin D3) melatonin 3 mg capsule 3 mg PO HS PRN sleep 03/27/23 Unknown History omega-3 fatty acids 1,000 mg 1,000 mg PO DAILY 03/27/23 09/13/24 History capsule metoprolol succinate 25 mg 25 mg PO DAILY #90 tabs 05/27/24 09/13/24 Rx tablet,extended release 24 hr amlodipine 10 mg tablet 10 mg PO QHS 09/13/24 09/12/24 History hydrochlorothiazide 12.5 mg tablet 12.5 mg PO DAILY 09/13/24 09/13/24 History turmeric 400 mg PO DAILY 09/13/24 09/13/24 History acetaminophen 325 mg tablet 325 mg PO ONCE PRN pain 09/18/24 Unknown History (Tylenol) Allergy/AdvReac Type Severity Reaction Status Date / Time ramipril (From Altace) Allergy Swelling Verified 09/19/24 12:21 ARB-Angiotensin Receptor AdvReac Severe Angioedema Verified 09/19/24 12:21 Antagonist Family History Mother Hypertension CVA (cerebral vascular accident) Diabetes Father Hypertension Cancer Grandmother CAD (coronary artery disease) Surgical History (Updated 09/19/24 @ 12:33 by Gloria Borges) History of esophagogastroduodenoscopy (EGD) History of colonoscopy History of repair of right rotator cuff History of medial meniscus repair of right knee History of ankle surgery History of foot surgery S/P hysterectomy (~2017) Social History Smoking Status: Never smoker alcohol intake: current substance use type: does not use Audit: Pertinent Findings Pertinent Findings EKG Perinent findings: 05/03/2023. Marked sinus bradycardia. Negative T waves may be normal or possible anterior septal ischemia. (See echo below) Echo (EF%) pertinent findings: 04/03/2024. EF 60%. PASP 38 mmHg. Mild aortic stenosis. Consult pertinent findings: 04/08/2024. [facility]. 1. Aortic stenosis?acute-last echo (above) demonstrated EF of 60% and mild aortic stenosis. Stable at this time. 2. Hypertension?[id number]. 3. Bradycardia-heart rate equal 50 in the office. Decrease metoprolol to 25 mg a day. Continue amlodipine and hydrochlorothiazide. Recommendation Anesthesia Recommendation Anesthesia recommendation: OPTIMIZED for anesthesia
[2024-09-23] VITALS (12 sets, daily range): BP systolic 121–149; BP diastolic 50–91; PULSE 59–78; RESP 16–22; TEMP 36.3–37.2; O2SAT 93–100; BMI 38.7
[2024-09-23] MEDS: Lactated Ringers 1,000 ML 15 ML IV (11:55)
--- NOTE | 2024-09-23 12:00 | RAD_ITS ---
EXAM: DX wrist two views, OR fluoro CLINICAL HISTORY: ORIF left wrist TECHNIQUE: Fluoroscopy during ORIF left wrist with 4 spot images FINDINGS: Fluoroscopy time 28.7 seconds Cumulative dose 0.60 mGy Spot images with placement of a distal radius dorsal plate and screws appears anatomic. Please see operative report for further detail. RAD/Wrist 2 Views IMPRESSION: Fluoroscopy as above. Reading Location: [id number]
--- NOTE | 2024-09-23 12:25 | PCM.PRE.AN2 ---
ASA Classification* ASA Classification ASA Classification: 3 Assessment & Plan Anesthesia* Anesthesia Assessment Anesthesia Assessment: Discussed sedation and/or anesthesia options, risks, benefits, and alternatives with patient/parents/legal guardian/POA. Questions invited. The patient/parents/legal guardian/POA seems to understand and agrees to proceed with anesthesia plan. Reviewed the physical assessment, medical history, allergy history and patient home medications list prior to surgery/procedure/anesthetic and documented any changes. Performed airway and anesthesia risk assessments. Anesthesia Type Anesthesia Type: General (Patient has mild aortic stenosis. Avoid increased heart rate or decrease blood pressure. Phenylephrine is drug of choice) and Block (Axillary block discussed. She would like to decide after surgery.) History Source History Obtained from:: Patient and Chart Anesthesia Focused Assessment* Temperature: 97.4 F Pulse Rate: 59 Blood Pressure: 122/58 Respiratory Rate: 16 Pulse Ox: 100 Oxygen Delivery Method: Room Air Airway Assessment Mouth opens: >3 cm Mallampati Score: IV Teeth Condition: Chipped/Broken (patient has bonding on teeth #8, 9 and 10.) Neck Range of motion (ROM): Full ROM Comment: Short thyromental distance Focused Labs Anesthesia Preop lab: CBC WBC 6.5 K/mm3 (4.4-11.0) 07/30/20 16:30 07/30/20 RBC 4.84 M/mm3 (4.2-5.4) 07/30/20 16:30 07/30/20 Hgb 12.8 g/dL (12.0-15.0) 07/30/20 16:30 07/30/20 Hct 40.9 % (37-47) 07/30/20 16:30 07/30/20 Plt Count 247 K/mm3 (150-450) 07/30/20 16:30 07/30/20 CHEMISTRY Potassium 4.1 mmol/L (3.3-5.1) 09/19/24 14:03 09/19/24 Sodium 132 mmol/L (133-145) L 09/19/24 14:03 09/19/24 BUN 29 mg/dL (4-19) H 09/19/24 14:03 09/19/24 Creatinine 0.65 mg/dL (0.70-1.20) L 09/19/24 14:03 09/19/24 Glucose 96 mg/dL (70-99) 09/19/24 14:03 09/19/24 POC Glucose 93 mg/dL (70-110) 04/19/18 11:00 04/19/18 TSH 0.214 uIU/mL (0.300-4.200) L 09/19/24 14:03 09/19/24 COAG PT 14.0 SECONDS (11.7-14.9) 04/12/18 16:02 04/12/18 Pre-Assessment Diagnosis/Proposed Procedure Planned Operative Procedure(s): ORIF LEFT WRIST Anesthesia History 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 When Was Last Pacemaker Check QUESTION #4 FULL TEXT: You/Your Family Experience fever (hyperthermia) with Anesthesia Last Oral Intake Last Oral intake: Last Oral Intake NPO since 21:30 09/23/24 11:42 Meds taken in AM with sips of water? Meds patient instructed to take am of surgery Any additional information?: Yes Meds taken in AM with sips of water?: Yes PONV PONV - harvest manager: PONV - harvest manager Female Yes 09/19/24 12:25 HX of Motion Sickness Yes 09/19/24 12:25 HX of N/V After Surgery No 09/19/24 12:25 Non-Smoker Yes 09/19/24 12:25 Duration of Surgery greater Yes 09/19/24 12:25 than 60 minutes Number of Risk Factors 4 09/19/24 12:25 PONV Score Severe Risk 09/19/24 12:25 Height & Weight Height & Weight: Anesthesia: Height & Weight Height 5 ft 2 in 09/23/24 11:42 Weight: 96.1 kg 09/23/24 11:42 Body Mass Index (BMI) 38.7 09/23/24 11:42 Respiratory Assessment Respiratory Assessment - harvest manager: Respiratory Tract Infection Hx - harvest manager Hx Respiratory Tract Infection No 09/19/24 12:25 STOP Sleep Apnea STOP Sleep Apnea - harvest manager: STOP Sleep Apnea - harvest manager Hx Hypertension Yes: CONTROLLED WITH MED 09/19/24 12:25 Hx Sleep Apnea No 09/19/24 12:25 CPAP No 09/13/24 14:27 BIPAP No 09/13/24 14:27 Do you snore loudly (louder No 09/19/24 12:25 than talking or can be heard Do you often feel tired/ No 09/19/24 12:25 fatigued/ sleepy during daytime? Has anyone observed you stop No 09/19/24 12:25 breathing during sleep? STOP Results Negative 09/19/24 12:25 QUESTION #5 FULL TEXT : Do you snore loudly (louder than talking or can be heard through closed doors)? Tobacco Use History Tobacco Use History - harvest manager: Tobacco Use History - harvest manager Tobacco Use Smoking Status Never smoker 09/19/24 12:25 Hx Tobacco Use No 09/19/24 12:25 Years Smoking Packs Smoked per Day Smoking Cessation Date was within the last 15 years Hx Smoking Cessation Date Hx Smoking Cessation Counseling Hematologic Medial History Hematologic Hx - harvest manager: Hematologic Medical Hx - bottom sander Hx of Blood Transfusion No 09/19/24 12:25 Hx of Transfusion in last 3 No 09/19/24 12:25 Months Date of Last Transfusion (if within last 3 months) Ever experience any problems No 09/19/24 12:25 with transfusion(s)? Specify any problems Hx of Preganancy in last 3 N/A 09/19/24 12:25 Months Nurse Filling Out Transfusion NBUCHER 09/19/24 12:25 & Questions: Date: 09/19/24 09/19/24 12:25 Time: 12:27 09/19/24 12:25 Patient unable to answer at this time (ie. confused, unrespo /Reproduction History /Reproductive History - harvest manager: /Reproductive Hx- harvest manager Hx Now No 09/19/24 12:25 Gestational Age (in weeks): EDC: Hx Hx Para Hx Section SAB No 09/19/24 12:25 Active Medications Active Medications: Current Medications Generic Name Dose Route Start Last Admin Trade Name Freq PRN Reason Stop Dose Admin Cefazolin Sodium 2 gm/ Sodium 110 mls @ 150 mls/hr 09/23/24 13:00 Chloride IV 09/23/24 13:43 INTRAOP ONE Lactated Ringer's 1,000 mls @ 15 mls/hr 09/23/24 11:30 09/23/24 11:55 IV 15 mls/hr .Q48H SACHA Administration PFSH Medical History Wears contact lenses Wears glasses Thyroid disease History of edema Non-smoker History of stress test Heart murmur History of echocardiogram Cardiology follow-up encounter Essential (primary) hypertension Hyperlipidemia Postmenopausal bleeding Home Medications ?Medication ?Instructions ?Recorded ?Last Taken ?Type levothyroxine 125 mcg tablet 100 mcg PO DAILY 03/18/15 09/23/24 History liothyronine 25 mcg tablet 25 mcg PO DAILY 03/18/15 09/23/24 07:00 History cholecalciferol (vitamin D3) 50 2,000 unit PO DAILY 04/13/18 09/13/24 History mcg (2,000 unit) capsule (Vitamin D3) melatonin 3 mg capsule 3 mg PO HS PRN sleep 03/27/23 Unknown History omega-3 fatty acids 1,000 mg 1,000 mg PO DAILY 03/27/23 09/22/24 History capsule metoprolol succinate 25 mg 25 mg PO DAILY #90 tabs 05/27/24 09/23/24 07:00 Rx tablet,extended release 24 hr amlodipine 10 mg tablet 10 mg PO QHS 09/13/24 09/22/24 History hydrochlorothiazide 12.5 mg tablet 12.5 mg PO DAILY 09/13/24 09/13/24 History turmeric 400 mg PO DAILY 09/13/24 09/18/24 History acetaminophen 325 mg tablet 325 mg PO ONCE PRN pain 09/18/24 Unknown History (Tylenol) Allergy/AdvReac Type Severity Reaction Status Date / Time ramipril (From Altace) Allergy Swelling Verified 09/23/24 11:40 ARB-Angiotensin Receptor AdvReac Severe Angioedema Verified 09/23/24 11:40 Antagonist Family History Mother Hypertension CVA (cerebral vascular accident) Diabetes Father Hypertension Cancer Grandmother CAD (coronary artery disease) Surgical History History of esophagogastroduodenoscopy (EGD) History of colonoscopy History of repair of right rotator cuff History of medial meniscus repair of right knee History of ankle surgery History of foot surgery S/P hysterectomy (~2017) Social History Smoking Status: Never smoker alcohol intake: current substance use type: does not use Review of Systems (Anesthesia) ROS Narrative System reviewed and no additional complaints, except as documented.
--- NOTE | 2024-09-23 13:08 | HP.PCM_ITS ---
History and Physical Date of Admission: 09/23/24 [facility] [address] [place] [address] OFFICE VISIT Date of Service: 09/18/24 MR#: [id number] Acct: [id number] Name: ROSANNE MCCLAIN Rep #: [id number] : 1960 Provider: Dr. Brian Garcia DO Age/Sex: 63/F Location: [facility] [place].[facility] Status: Signed Intake Vital Signs 09/13/2512:06 09/13/2513:27 09/19/2507:32 Height 5 ft 2 in 5 ft 2 in 5 ft 2 in Weight: 213 lb BMI 38.9 Intake Visit Reasons: LEFT WRIST Chief Complaint: Left wrist Accompanied by: Self Is patient in pain?: No Allergies ramipril (From Altace) Allergy (Verified 09/18/24 08:36) SwellingARB-Angiotensin Receptor Antagonist Adverse Reaction (Severe, Verified 09/18/24 08:36) Angioedema Medications ?Medication ?Instructions ?Recorded ?Confirmed ?Type levothyroxine 125 mcg tablet 125 mcg PO DAILY 03/18/15 09/18/24 Histo ry liothyronine 25 mcg tablet 25 mcg PO DAILY 03/18/15 09/18/24 Histor y cholecalciferol (vitamin D3) 50 2,000 unit PO DAILY 04/13/18 09/18/24 Hi story mcg (2,000 unit) capsule (Vitamin D3) fexofenadine 180 mg tablet 180 mg PO DAILY PRN allergy 03/27/2312/06 History symptoms fluticasone propionate 50 2 spray intranasal DAILY PRN 03/27/23 History mcg/actuation nasal allergy symptoms spray,suspension melatonin 3 mg capsule 3 mg PO HS PRN sleep 03/27/23 09/18/24 H istory omega-3 fatty acids 1,000 mg 1,000 mg PO DAILY 03/27/23 09/18/24 Hist ory capsule metoprolol succinate 25 mg 25 mg PO DAILY #90 tabs 05/27/24 5 Rx tablet,extended release 24 hr amlodipine 10 mg tablet 10 mg PO QHS 09/13/24 09/18/24 History hydrochlorothiazide 12.5 mg tablet 12.5 mg PO DAILY 09/13/24 09/18/24 Histo ry turmeric PO DAILY 09/13/24 09/18/24 History acetaminophen 325 mg tablet 325 mg PO ONCE PRN 09/18/24 09/18/24 His tory (Tylenol) Have you fallen in the past year?: Yes [facility] Medical History Essential (primary) hypertension Hyperlipidemia Postmenopausal bleeding Surgical History S/P hysterectomy Family History Mother Hypertension CVA (cerebral vascular accident) DiabetesFather Hypertension CancerGrandmother CAD (coronary artery disease) Social History Smoking Status: Never smoker alcohol intake: current substance use type: does not use HPI LEFT WRIST Details: This documentation accurately reflects the service provided and the decisions made by me, Dr. Brian Garcia, DO 09/18/24 0754. Part of today?s visit was documented by Mercy Carlisle MA, acting as scribe. ROSANNE MCCLAIN is a 63 year old F with a medical history significant for but not limited to aortic stenosis, hypertension, hyperlipidemia, bradycardia, hypothyroidism, here today for ER follow-up 09/13/2024 left wrist fracture status post ground-level fall walking her dog. She did have a hematoma block and a closed reduction and splinting from the emergency room which she felt was very tight and causing her numbness into her mostly in index and middle finger but significant pain on her thumb. She states they did redo it once but it was not much better since. She is right-hand dominant, patient denies any smoking or drug use. Denies any previous injury to this hand/arm. Ortho Exam General General: Yes no acute distress and Yes well groomed Neurologic: Yes alert and Yes oriented x3 Psychologic: Yes reasonable and appropriate Right Wrist/Hand Skin/Wound: Yes Swelling and Yes Ecchymosis Left Wrist/Hand Date of injury: 09/13/24 Skin/Wound: Yes CDI, Yes Swelling, Yes Ecchymosis, Yes capillary refill normal and No erythema WRIST: She does have some volar ecchymosis there was a Band-Aid on the dorsum of her wrist from the hematoma block that was given in the emergency room. Her compartments are soft her swelling is controlled she does have numbness in the fingers however this is much improved after splint was removed but did have some residual in the index finger. She has intact sensation light touch and can wiggle her digits she is not tender over the elbow or shoulder she is exquisitely tender over the fracture site. Head: Normocephalic Atraumatic Chest: symmetrical rise, non-labored breathing, no audible wheeze Abdomen: no guarding, non-rigid Supplemental Info 09/13/2024 x-ray Left wrist: left wrist pre and postreduction x-rays intra- articular impacted dorsally angulated distal radius fracture prereduction postreduction anatomic is improved however there is some residual tilt to the articular surface dorsal tilt to articular surface 11 degrees. Coding Level of Care Code Off vis,est,level 4 Diagnoses Other closed intra-articular fracture of distal end of left radius, initial encounter S52.572A Encounter type: initial encounter Fracture type: closed Fracture morphology: other intra-articular Assessment and Plan Assessment and Plan (1) Distal radius fracture, left: Status: Acute Qualifiers: Encounter type: initial encounter Fracture type: closed Fracture morphology: other intra-articular Qualified Code(s): S52.572A - Other intraarticular fracture of lower end of left radius, initial encounter for closed fracture Plan Reviewed wrist x-rays that were taken on 09/13/2024 in the ER and explained that after the reduction the tilt is better but it is still 11 degrees dorsally tilted at the articular surface and with the intra-articular nature of the fracture these are highly likely to continue to displace and further displacement will lead to increased posttraumatic arthritis and loss of function. We discussed surgical versus nonsurgical options including risk benefits alternatives of both including risk of bleeding infection nerve artery tissue damage need for further surgery continued pain hardware irritation hardware failure expected postoperative course and stiffness. . She would need to stop taking the turmeric and Ibuprofen/Aleve now but she is able to take Tylenol if needed for pain. Patient would like to proceed with the surgical procedure and will place short arm cast that was bivalved it was much more comfortable for her her numbness already improved after this was on to a degree. Tentative surgery date 09/23/2024. She will be in a splint for 1 week and then I would like her to follow-up for splint removal wound check and start physical therapy and she will need a follow-up appointment 2 weeks postop for suture removal. Follow up 1 week following surgery for post-op or sooner if pain, swelling, numbness or associated symptoms, or concerns develop. All questions answered. Patient in agreement of plan. Clinical Quality Measures Falls Risk Screening/Assistive Devices Have you fallen in the past year?: Yes 09/18/24 0952 <Electronically signed by Brian Garcia DO> Date Brian Garcia DO I have examined the patient and the H&P has been reviewed. There are no clinical changes since date of exam.
[2024-09-23] MEDS: Cefazolin 2 GM in 0.9% Normal Saline (100mL Bag) 100 ML IV (13:30)
[2024-09-23] MEDS: Bupiv/Epi 0.25% 30 ML Vial (14:29)
--- NOTE | 2024-09-23 14:44 | PCM.OPRPT ---
Operative Report (Standard) Operative Information Date of Procedure: 09/23/24 Pre-Operative Diagnosis: Left distal radius comminuted intra-articular fracture greater than 3 fragments Post-Operative Diagnosis: Same Surgery/Procedure Performed: ORIF distal radius snowblower mechanic: Yes Tongue Lining Stitcher: Ronn Ugarte Tasks completed by director of first impressions: Opening & closing, Implanting device, Hemostasis: Electrocautery and Retracting Additional commercial lines assistant?: No Type of Anesthesia: General RN Documented Start/Stop Times: Operation Date: 09/23/24 13:00 Case Time Into Pre-Op 09/23/24 11:29 Anesthesia Start 09/23/24 13:15 Into Room 09/23/24 13:15 Out of Pre-Op 09/23/24 13:15 Procedure Start 09/23/24 13:38 Procedure End 09/23/24 14:35 Procedure Start Time: 13:38 Procedure Stop Time: 14:35 Select all DRAINS/GRAFTS/IMPLANTS that apply: Implanted device Implanted device details: Synthes distal radius variable angle locking plate Estimated Blood Loss: 5 Specimen collected: No Description of surgery: Preoperative diagnosis: Left comminuted intra-articular distal radius fracture that was displaced Postoperative diagnosis: Same Anesthesia: [General} Procedure: ORIF of the distal radius Implants: Synthes distal radius variable angle locking plate Complications: None Indication for procedure: 63-year-old female patient status post ground-level fall injuring her left wrist we discussed risks benefits and alternatives of conservative versus surgical intervention. Including the risk of bleeding infection nerve artery tissue damage need for further surgery continued pain postoperative stiffness need for postoperative physical therapy and the expected postoperative course. Procedure: The patient was met in the preoperative holding area the operative extremity was identified by both patient and physician and marked. Patient was met by anesthesia she was brought back to the operating room on a wheeled cart and transferred to the operating table in the supine position anesthesia was started. A well-padded tourniquet was placed on the upper arm of the operative extremity. She was prepped and draped in the usual sterile fashion. A Time out was called to ensure the proper patient procedure and extremity were being contemplated. A 15 blade scalpel was used to make a linear incision over the FCR tendon this was carried down through the skin and subcutaneous tissue. Electrocautery was used to maintain hemostasis. Brittaney retractors were used. The FCR tendon sheath was incised and the FCR tendon was mobilized radially. A deep blade scalpel was used to perforate the fascia of the deep FCR tendon sheath and Littler scissors were used to dissect proximally and distally. Blunt dissection was performed a alok was placed on the radial and ulnar side of the radius. The pronator quadratus was partially torn from the injury and was released off the radial border of the radius with electrocautery and was elevated with a nava elevator. The Hohmann retractors were then placed deep to this muscle. The fracture site was visualized and was freed of hematoma and clot debris with the use of small rongeur and [place]. The fracture was then reduced with the use of a [place] and ulnar deviation and wrist flexion. This was checked under fluoroscopy to ensure that an adequate reduction could be performed. A plate was then positioned over the fracture site and temporarily fixed to the bone with K wires. A cortical screw was then placed in the shaft and sequential locking screws were placed distally this was checked on both AP and lateral projections to ensure screw placement was not penetrating the joint and was in the proper location. Bone drill sleeve was used for the radial styloid screw and a variable angle fashion. The remainder of the cortical screws were placed in the shaft. And the fracture and hardware were visualized in both AP and lateral projections in good alignment and fracture positioning. The wound was thoroughly irrigated. Tourniquet was let down to assess for bleeding there was no significant bleeding . pronator quadratus was not repairable. A subcutaneous stitch with 3-0 Vicryl was performed followed by 4-0 nylon vertical mattress stitches. Followed by Xeroform 4 x 4 ABD web roll stockinette more web roll volar paster splint and an Donte wrap. There was no complications intraoperatively and the patient was brought back to the PACU in stable condition where she received an axillary block. All counts were correct. Surgical Findings: Comminuted intra-articular distal radius fracture Complications Complications: No
--- NOTE | 2024-09-23 14:48 | DCINST_ITS ---
Discharge Instructions Diet Discharge Diet: No restrictions Activity Keep extremity elevated above heart level: Operative Extremity Dressing / Incision Additional Dressing/Incision Instructions:: Strict elevation of operative ex tremity above heart for next 72 hours. Ice 15 minutes on 15 minutes off. Continue ice and elevation for 7 days postoperatively. Encourage finger range of motion. No lifting pushing or pulling more than a coffee cup. Must keep splint on clean and dry. Follow-up in office in 1 week Follow Up Care Please Follow Up With: Brian Garcia DO When: 2 weeks Test Results: Test results from this visit will be discussed in further detail at your follow- up appointment, if applicable. Discharge Plan Admission Primary Reason for Your Visit: Left distal radius ORIF Attending Provider: Brian Garcia Primary Care Provider: Augustine Pace Instructions Print Language: Togolese Discharge Orders/Prescriptions Prescriptions: New cephalexin 500 mg capsule 1,000 mg PO Q8H Qty: 4 0RF Rx Instructions: Take 2 tabs before you go to bed and 2 tabs after 5 AM morning after surgery when you wake up oxycodone 5 mg tablet 5 - 10 mg PO Q4H PRN (Reason: pain) 5 Days Qty: 20 0RF Continued melatonin 3 mg capsule 3 mg PO HS PRN (Reason: sleep) Patient Comments: PT STATES SHE TAKES A COMBINATION SUPPLEMENT THAT CONTAINS BOTH MELATONIN AND MAGNESIUM. acetaminophen [Tylenol] 325 mg tablet 325 mg PO ONCE PRN (Reason: pain) liothyronine 25 MCG tablet 25 mcg PO DAILY levothyroxine 125 MCG tablet 100 mcg PO DAILY cholecalciferol (vitamin D3) [Vitamin D3] 2,000 UNIT capsule 2,000 unit PO DAILY amlodipine 10 mg tablet 10 mg PO QHS hydrochlorothiazide 12.5 mg tablet 12.5 mg PO DAILY metoprolol succinate 25 mg tablet extended release 24 hr 25 mg PO DAILY Qty: 90 3RF Held omega-3 fatty acids 1,000 mg capsule 1,000 mg PO DAILY Hold Instructions: Resume on 09/30/24. turmeric 400 mg PO DAILY Hold Instructions: Resume on 09/30/24. Other Ambulatory Orders: 12 Lead EKG (Routine) Location: None Selected Ordered By: Dr. Ramsey Melgoza Referrals / Follow Up: Augustine Pace MD [Primary Care Provider] - Disposition Disposition (needs filled in before D/C Order can be placed): Home, Self Care
--- NOTE | 2024-09-23 14:50 | PCM.POST.ANE ---
Anesthesia: Postop Eval I Current Vital Signs Temperature: 98.8 F Pulse Rate: 68 Blood Pressure: 138/74 Respiratory Rate: 22 Pulse Ox: 97 Oxygen Delivery Method: Room Air Assessment Airway patent: Yes Spontaneous unlabored respirations: Yes Mental status: Awake and Calm nausea: No Vomiting: No Anesthesia Complication: No Fluid Hydration Crystalloid volume administer (ml): 800 Total IV fluid infused: 800 Progress Note Anesthesia document: Postop Eval 1 completed: Yes
[2024-09-23] MEDS: Cephalexin 500 MG Capsule 1000 MG PO (17:04)
--- NOTE | 2024-09-23 18:29 | POSTOPAN2_ITS ---
Anesthesia Postop Eval I Sum Postop Eval Completion status Anesthesia document: Postop Eval 1 completed: Yes Anesthesia Postop Eval I Summary Anesthesia Postop Eval I Summary: Anesthesia Postop Eval I: Assessment Summary Airway patent Yes 09/23/24 14:51 [email or web address] Spontaneous unlabored Yes 09/23/24 14:51 [email or web address] [email or web address] respirations Mental status Awake,Calm 09/23/24 14:51 [email or web address] [email or web address] nausea No 09/23/24 14:51 [email or web address] [email or web address] Vomiting No 09/23/24 14:51 [email or web address] Anesthesia Postop Eval I: Fluid Summary Crystalloid volume administer 800 09/23/24 14:51 [email or web address] (ml) Colloids volume administered ( ml) Blood Product volume administered (ml) Total IV fluid infused 800 09/23/24 14:51 [email or web address] Anesthesia Postop Eval I: Summary Notes Anesthesia Complication No 09/23/24 14:51 [email or web address] Anesthesia Complication Comment: Post-operative progress note Anesthesia: Postop Eval II Evaluation Mental status: Awake and Calm Pain Level: 0 nausea: No Vomiting: No Progress Note Post-operative progress note: Patient's pain level was a 7/10 in PACU. She elected to go ahead and proceed with the axillary block for pain control. After the block was performed patient's pain level was a 0/10. Complications Anesthesia Complication: No
--- NOTE | 2024-09-23 18:29 | PCM.POSTANE2 ---
Anesthesia Postop Eval I Sum Postop Eval Completion status Anesthesia document: Postop Eval 1 completed: Yes Anesthesia Postop Eval I Summary Anesthesia Postop Eval I Summary: Anesthesia Postop Eval I: Assessment Summary Airway patent Yes 09/23/24 14:51 [email or web address] Spontaneous unlabored Yes 09/23/24 14:51 [email or web address] respirations Mental status Awake,Calm 09/23/24 14:51 [email or web address] nausea No 09/23/24 14:51 [email or web address] Vomiting No 09/23/24 14:51 [email or web address] Anesthesia Postop Eval I: Fluid Summary Crystalloid volume administer 800 09/23/24 14:51 [email or web address] (ml) Colloids volume administered ( ml) Blood Product volume administered (ml) Total IV fluid infused 800 09/23/24 14:51 [email or web address] Anesthesia Postop Eval I: Summary Notes Anesthesia Complication No 09/23/24 14:51 [email or web address] Anesthesia Complication Comment: Post-operative progress note Anesthesia: Postop Eval II Evaluation Mental status: Awake and Calm Pain Level: 0 nausea: No Vomiting: No Progress Note Post-operative progress note: Patient's pain level was a 7/10 in PACU. She elected to go ahead and proceed with the axillary block for pain control. After the block was performed patient's pain level was a 0/10. Complications Anesthesia Complication: No
== END 2024-09-23 17:05 | disposition home or self-care (01) ==
LOC: SDC 11:11 → AC 11:13
PROVIDERS: Anesthesiology; PCP Family Medicine; Referring Provider Orthopaedic Surgery; Visit Provider Orthopaedic Surgery
PROC: (CPT 25608; principal; 2024-09-23 12:45)
DX: S52.572A Other intraarticular fracture of lower end of left radius, initial encounter for closed fracture (principal); I10 Essential (primary) hypertension; E07.9 Disorder of thyroid, unspecified; Z79.899 Other long term (current) drug therapy; W19.XXXA Unspecified fall, initial encounter
CPT/HCPCS: 25608; 64417; 01830; 36415; 73100; 76000; 80048; 84443; 93005; C1713; J2405

== ENCOUNTER → 2024-10-14 | Outpatient (CLI) | payer MEDICARE, SELFPAY ==
[2024-10-14 18:55] LABS: ALB/GLOB Ratio 1.5 RATIO (0.9-2.4); AST(SGOT) 24 U/L (<=31); Alanine Aminotransfer ALT/SGPT 16 U/L (<=34); Albumin, Serum 4.4 g/dL (3.4-4.8); Alkaline Phosphatase 100 U/L (35-104); Anion Gap 12 (5-15); BUN 28 mg/dL (4-19); BUN/Creat Ratio 41.7 RATIO (10-20); Calcium,Total 9.8 mg/dL (7.6-11.0); Carbon Dioxide 25.4 mmol/L (21.0-32.0); Chloride 97 mmol/L (98-108); Creatinine, Serum 0.67 mg/dL (0.70-1.20); EST Glomerular Filtration Rate 97 (>60); Globulin 2.9 g/dL (2.2-4.2); Glucose 118 mg/dL (70-99); Potassium 5.1 mmol/L (3.3-5.1); Protein, Total 7.2 g/dL (5.9-8.4); Sodium Level 134 mmol/L (133-145); Thyroid Stim Hormone (TSH) 0.158 uIU/mL (0.300-4.200); Total Bilirubin 0.35 mg/dL (0.00-1.30)
[2024-10-14 19:11] LABS: Osmolality, Serum 300 mOsm/KG (280-301)
[2024-10-14 20:33] LABS: Osmolality, Urine 359 mOsm/KG
[2024-10-14 20:52] LABS: Calcium, Urine (Random) 5.6 mg/dL (Not Estab.); Microalbumin,Random Urine < 12.0 mg/L (NO RANGE EST.); Microalbumin:Creatinine Ratio UNABLE TO CALCULATE mg/g CRE; Urine Sodium 46 mmol/L (Not Establ.)
== END | disposition home or self-care (01) ==
PROVIDERS: PCP Family Medicine; Referring Provider Family Medicine; Visit Provider Family Medicine
DX: E03.9 Hypothyroidism, unspecified (principal); E87.1 Hypo-osmolality and hyponatremia; S62.102A Fracture of unspecified carpal bone, left wrist, initial encounter for closed fracture
CPT/HCPCS: 36415; 80053; 82043; 82340; 82570; 83930; 83935; 84300; 84439; 84443; 84481

== ENCOUNTER → 2024-10-31 | Outpatient (CLI) | payer MEDICARE, SELFPAY ==
--- OUTSIDE RECORDS SUMMARY | 2024-10-23 19:37 | XMS RPT_ITS | CCD ---
Author Organization [facility] Care Team Providers Care Physician Obstetrician Name Role Phone No, Physician Primary Care Provider Unavailabl e NO, PHYSICIAN Primary Care Unavailable NGUYỄN SEGURA Referring Unavailable NGUYỄN SEGURA Admitting Unavailable JONATHAN AGUDELO Attending Unavailable NGUYỄN SEGURA Attending Unavailable ERIKA, PHYSICIAN Primary Care Unavailable Rose Mary Ocasio Primary Care Provider [phone] Rose Mary Ocasio Primary Care Provider Rose Mary Ocasio Primary Care Provider Ninfa, Rose Mary Schillinger Primary Care Provider ROSE MARY OCASIO KASEY Primary Care Unavailable DSETINY RANDALL Referring Unavailab le CHICORELDESTINY AVILA Attending Unavailab le JOLLIFF, ROSE MARY KASEY Primary Care Unavailable GABY GOODE Attending Unavailable DESTINY RANDALL Referring Unavailab le JOLLIFF, ROSE MARY KASEY Primary Care Unavailable CHICDESTINY ELLISON Referring Unavailab le CHICORELDESTINY AVILA Attending Unavailab le JOLLIFF, ROSE MARY KASEY Primary Care Unavailable CHICDESTINY ELLISON Referring Unavailab le CHICORELDESTINY AVILA Attending Unavailab le CHICORELDESTINY AVILA Referring Unavailab le REGOTTGABY Cabello Attending Unavailable JOLLNA, ROSE MARY KASEY Primary Care Unavailable GABY GOODE Attending Unavailable CHICDESTINY ELLISON Referring Unavailab le JOLLIFF, ROSE MARY KASEY Primary Care Unavailable CHICDESTINY ELLISON Referring Unavailab le CHICORELDESTINY AVILA Attending Unavailab le JOLLIFF, ROSE MARY KASEY Primary Care Unavailable GABY GOODE Attending Unavailable DESTINY RANDALL Referring Unavailab ROSE MARY Sands KASEY Primary Care Unavailable Dr. Rose Mary Ocasio Primary Care Provider [phone] Mera, Dr. Sinclair Attending Provider Dr. Yahir Tesfaye Referring Provider Rose Mary Ocasio Primary Care Provider [phone] Ninfa PAYNE, Dr. Rose Mary Melgar Primary Care Provider [phone] Balbir PAYNE, Dr. Brody Attending Provider [phone] Balbir PAYNE, Dr. Brody Emergency Provider [phone] Ninfa PAYNE, Dr. Rose Mary Melgar Referring Provider [phone] Jose BIGGS, Dr. Torres Attending Provider Jose BIGGS, Dr. Torres Referring Provider Sanjeev PAYNE, Dr. Bradshaw Primary Care Provider [phone] Jose BIGGS, Dr. Torres Other Provider [phone] Sanjeev PAYNE, Dr. Bradshaw Primary Care Provider [phone] Puneet PAYNE, Dr. Street Attending Provider Jose BIGGS, Dr. Torres Referring Provider Sanjeev PAYNE, Dr. Bradshaw Referring Provider [phone] Sanjeev PAYNE, Dr. Bradshaw Attending Provider [phone] Pace, Augustine Primary Care Unavailable Pace, Augustine Referring Unavailable Sanjeev, Augustine Attending Unavailable Pace, Augustine Primary Care Unavailable Brian Garcia Attending Unavailable Nehemias PHAM, Tamara Attending Unavailable Jolliff, Rose Mary S Primary Care Unavailable Brian Garcia Attending Unavailable Sanjeev, Augustine Primary Care Unavailable Brian Garcia Consulting Unavailable Brian Garcia Referring Unavailable Brian Garcia Attending Unavailable Pace, Augustine Primary Care Unavailable Pace, Augustine Referring Unavailable Pace, Augustine Primary Care Unavailable Pace, Augustine Referring Unavailable Brian Garcia Attending Unavailable Nehemias GRAIN COMBINER, Tamara Attending Unavailable Jolliff, Rose Mary S Primary Care Unavailable Jolliff, Rose Mary S Referring Unavailable Brian Garcia Attending Unavailable Jolliff, Rose Mary S Primary Care Unavailable Jolliff, Rose Mary S Referring Unavailable Jad Teixeira Attending Unavailable Pace, Augustine Primary Care Unavailable Brian Garcia Referring Unavailable Mera, [place] Attending Unavailable Jolliff, Rose Mary S Primary Care Unavailable Jolliff, Rose Mary S Attending Unavailable Jolliff, Rose Mary S Primary Care Unavailable Jolliff, Rose Mary S Primary Care Unavailable Jolliff, Rose Mary S Referring Unavailable Jolliff, Rose Mary S Attending Unavailable Mera, [place] Referring Unavailable Mera, Yahir Attending Unavailable Jolliff, Rose Mary S Primary Care Unavailable Sanjeev, Augustine Primary Care Unavailable Augustine Pace Referring Unavailable Augustine Pace Attending Unavailable Ronn Mcgregor Attending Unavailable Jolliff, Rose Mary S Primary Care Unavailable Brian Garcia Attending Unavailable Pace, Augustine Primary Care Unavailable Brian Garcia Referring Unavailable Jolliff, Rose Mary S Referring Unavailable Jolliff, Rose Mary S Attending Unavailable Jolliff, Rose Mary S Primary Care Unavailable Allergies Allergy Classification Reported Allergen(s) Allergy Type Date of Onset Reaction(s) Facility (20 sources) Ramipril; Translations: [RAMIPRIL] Drug Allergy 5 Swelling [facility] (4 sources) ARB-Angiotensin Receptor Antagonist Propensity to adverse reactions 5 Angioedema [facility] (1 source) Ramipril Drug Allergy 5 [facility] (1 source) ARB-Angiotensin Receptor Antagonist Drug allergy (disorder) 5 [facility] Medications Current Medications Medication Drug Class(es) Dates Sig (Normalized) Sig (Original) acetaminophen 325 mg oral tablet (4 sources) Start: 09-18-2024 take 1 tablet by mouth once as needed for pain Acetaminophen (Tylenol) 325 mg tablet Active 325 mg PO ONCE as needed for pain September 18, 2024 12:00am amLODIPine 10 mg oral tablet (20 sources) Dihydropyridine Calcium Channel Dionte Start: 09-13-2024 take 1 tablet by mouth at bedtime Amlodipine 10 mg tablet Active 10 mg PO AT BEDTIME September 13, 2024 12:00am Start: 05-03-2023 End: 09-13-2024 take 1 tablet by mouth once daily Amlodipine 5 mg tablet Discontinued 5 mg PO DAILY July 12, 2023 4:54pm September 13, 2024 2:14pm Start: 03-18-2015 End: 05-03-2023 take 1 tablet by mouth once daily Amlodipine 2.5 MG tablet Discontinued 2.5 mg PO DAILY March 18, 2015 1:00am May 03, 2023 10:51am Comment on above: Take 2.5 mg by mouth once daily. cephalexin 500 mg oral capsule (4 sources) Cephalosporin Antibacterial Start : 09-23 Cephalexin 500 mg capsule Active 1000 mg PO Q8H 4 September 23, 2024 12:00am Take 2 tabs before you go to bed and 2 tabs after 5 AM morning after surgery when you wake up cholecalciferol 0.05 mg oral capsule (20 sources) Vitamin D Start : 04-13 take 1 capsule by mouth once daily Cholecalciferol (Vitamin D3) (Vitamin D3) 2,000 UNIT capsule Active 2000 U PO DAILY April 13, 2018 1:00am Comment on above: Take 1 capsule by mo [facility] once daily. hydroCHLOROthiazide 12.5 mg oral tablet (20 sources) Thiazide Diuretic Start : 09-13 take 1 tablet by mouth once daily Hydrochlorothiazide 12.5 mg tablet Active 12.5 mg PO DAILY September 13, 2024 12:00am Start: 04-08-2024 End: 09-13-2024 Hydrochlorothiazide 25 mg ta blet Discontinued 12.5 mg PO daily April 08, 2024 10:01am September 13, 2024 2:15pm Start: 04-19-2021 End: 04-08-2024 Hydrochlorothiazide 25 mg ta blet Discontinued 25 mg PO April 19, 2021 1:00am April 08, 2024 10:01am Start: 03-18-2015 End: 04-21-2018 Hydrochlorothiazide 25 MG ta blet Discontinued 12.5 mg PO DAILY March 18, 2015 1:00am April 21, 2018 10:20am Start: 03-18-2015 End: 04-21-2018 take 12.5 mg by mouth once daily Hydrochlorothiazide Discontinued 12.5 MG PO DAILY March 18, 2015 1:00am April 21, 2018 10:20am Comment on above: Take 25 mg by mouth once daily. levothyroxine sodium 0.125 mg oral tablet (20 sources) l-Thyroxine Start: 03-18-2015 Levothyroxine 125 MCG tablet Active 100 ug PO DAILY March 18, 2015 1:00am Start: 03-18-2015 take 125 ug by mouth once daily Levothyroxine Active 125 MCG PO DAILY March 18, 2015 1:00am Comment on above: Take 125 mcg by mout h daily before breakfast. liothyronine sodium 0.025 mg oral tablet (20 sources) l-Triiodothyronine Start: 5 take 1 tablet by mouth once daily Liothyronine 25 MCG tablet Active 25 ug PO DAILY March 18, 2015 1:00am Comment on above: Take 25 mcg by mouth once daily. melatonin 3 mg oral capsule (15 sources) Start: take 1 capsule by mouth at bedtime as needed for sleep Melatonin 3 mg capsule Active 3 mg PO BEDTIME as needed for sleep March 27, 2023 1:00am take 1 capsule by mo uth once daily at bedtime as needed melatonin 3 mg capsules Take 3 mg by christin th daily at bedtime. As needed 0 Active Comment on above: Take 3 mg by mouth d aily at bedtime. As needed 24 hr metoprolol succinate 25 mg extended release oral tablet (20 sources) beta-Adrenergic Dionte Start: 04-08-2024 End: 05-27-2024 take 1 tablet by mouth once daily Metoprolol Succinate 25 mg tablet extended release 24 hr Active 25 mg PO DAILY May 27, 2024 5:57pm Start: 05-03-2023 End: 04-08-2024 take 1 tablet by mouth once daily Metoprolol Succinate (Toprol Xl) 50 mg tablet extended release 24 hr Discontinued 50 mg PO DAILY July 12, 2023 4:54pm April 08, 2024 10:15am Start: 03-27-2023 End: 05-03-2023 take 1 tablet by mouth once daily Metoprolol Tartrate 100 mg tablet Discontinued 100 mg PO DAILY May 03, 2023 9:57am May 03, 2023 10:40am Start: 04-21-2018 End: 03-27-2023 Metoprolol Tartrate 100 MG t ablet Discontinued 50 mg PO DAILY April 21, 2018 1:15pm March 27, 2023 9:36am Start: 04-21-2018 take 50 mg by mouth once daily Metoprolol Tartrate Active 50 MG PO DAILY April 21, 2018 1:15pm Start: 03-18-2015 End: 04-21-2018 take 1 tablet by mouth once daily Metoprolol Tartrate 100 MG tablet Discontinued 100 mg PO DAILY April 20, 2018 1:00am April 21, 2018 1:18pm metoprolol succi saad XL, long acting, (TOPROL XL) 50 mg 24 hr tablet Take 100 mg by mouth once daily. Active Comment on above: Take 100 mg by mouth once daily. Miscellaneous Medical Supply (8 sources) Start: 06-29-2021 Miscellaneous Medical Supply Active 1 EACH .6 months June 29, 2021 12:00am Handicap placard Start: 06-29-2021 Miscellaneous Medical Supply Active 1 EACH .6 months June 29, 2021 1:00am Handicap placard [place]-3 Fatty Acids 1,000 mg capsule (4 sources) Start: 03-27-2023 take 1 capsule by mouth once daily [place]-3 Fatty Acids 1,000 mg capsule Active 1000 mg PO DAILY March 27, 2023 1:00am On Hold: Resume on 09/30/24. Turmeric extract (4 sources) Start: 09-13-2024 take 400 mg by mouth once daily turmeric Active 400 mg PO DAILY September 13, 2024 12:00am On Hold: Resume on 09/30/24. Completed/Discontinued Medications Medication Drug Class(es) Dates Sig (Normalized) Sig (Original) acetaminophen 325 mg / HYDROcodone bitartrate 5 mg oral tablet (4 sources) Opioid Agonist Start: 09-13-2024 End: 09-18-2024 Hydrocodone-Acetami nophen 5-325 mg tablet Discontinued 1 {tbl} PO EVERY 4 HOURS NEEDED as needed for Pain 14 5 September 13, 2024 September 18, 2024 8:37am acetaminophen 325 mg / oxyCODONE hydrochloride 5 mg oral tablet (11 sources) Opioid Agonist Start: 07-27-2021 take 1 tablet by mouth every six hours as needed for pain oxyCODONE-acetamino phen (PERCOCET) 5-325 mg tablet Indications: Postoperative pain Take 1 tablet by mouth every 6 hours as needed for pain. 25 tablet 0 07/27/2021 Active Comment on above: Take 1 tablet by christin th every 6 hours as needed for pain. 5 ml bupivacaine hydrochloride 5 mg/ml injection (1 source) Amide Local Anesthetic Start: 01-06-2022 End: 01-06-2022 bupivacaine (PF) 0.5 % (5 mg/mL) 4 mL injection Start: 01-06-2022 End: 01-06-2022 bupivacaine (PF) 0.5 % (5 mg /mL) 4 mL injection estradiol 0.1 mg/ml vaginal cream (12 sources) Estrogen Start: 04-21-2018 End: 04-19-2021 Estradiol (Estrace Vaginal Cream) 42.5 GM cream Discontinued 1 NMA VAGINAL AT BEDTIME April 21, 2018 1:00am April 19, 2021 12:51pm Apply toothpaste size amount vaginally at bedtime Start: 04-21-2018 End: 04-19-2021 Estradiol (Estrace Vaginal C ream) 42.5 GM cream Discontinued 1 DOSE VAGINAL AT BEDTIME April 21, 2018 1:00am April 19, 2021 12:51pm Apply toothpaste size amount vaginally at bedtime fexofenadine hydrochloride 180 mg oral tablet (16 sources) Histamine-1 Receptor Antagonist Start: 03-27-2023 End: 09-19-2024 take 1 tablet by mouth once daily as needed Fexofenadine 180 mg tablet Discontinued 180 mg PO DAILY as needed for allergy symptoms March 27, 2023 1:00am September 19, 2024 12:22pm fexofenadine HCl (SUSAN ORAL) Take by mouth. Active fexofenadine HCl (SUSAN ORAL) Take by mouth. 0 Active Comment on above: Take by mouth. fluticasone propionate 0.05 mg/actuat metered dose nasal spray (4 sources) Corticosteroid Start: 03-27-2023 End: 09-19-2024 Fluticasone Propionate 50 mcg/actuation spray,suspension Discontinued 2 NMA INTRANASAL DAILY as needed for allergy symptoms March 27, 2023 1:00am September 19, 2024 12:22pm hyaluronate (5 sources) Start: 12-23-2022 End: 12-23-2022 sodium hyaluronate 2.5 mL injection (SUPARTZ FX) Start: 12-16-2022 End: 12-16-2022 sodium hyaluronate 2.5 mL in jection (SUPARTZ FX) Start: 12-09-2022 End: 12-09-2022 sodium hyaluronate 2.5 mL in jection (SUPARTZ FX) Start: 04-26-2022 End: 04-26-2022 sodium hyaluronate 2.5 mL in jection (SUPARTZ FX) Start: 04-15-2022 End: 04-15-2022 sodium hyaluronate 2.5 mL in jection (SUPARTZ FX) ibuprofen 600 mg oral tablet (20 sources) Nonsteroidal Anti-inflammatory Drug Start: 10-05-2017 End: 09-18-2024 take 1 tablet by mouth three times daily as needed for pain Ibuprofen 600 MG tablet Discontinued 600 mg PO THREE TIMES A DAY as needed for Pain April 20, 2018 9:34am September 18, 2024 8:37am 10 ml lidocaine hydrochloride 10 mg/ml injection (1 source) Antiarrhythmic, Amide Local Anesthetic Start: 04-15-2022 End: 04-15-2022 lidocaine (PF) 10 mg/mL (1 %) 3 mL injection (XYLOCAINE) Start: 04-15-2022 End: 04-15-2022 lidocaine (PF) 10 mg/mL (1 % ) 3 mL injection (XYLOCAINE) magnesium chloride 535 mg delayed release oral tablet (4 sources) Start: 03-27-2023 End: 09-13-2024 take 1 tablet by mouth once daily Magnesium Chloride 64 mg tablet,delayed release (DR/EC) Discontinued 64 mg PO DAILY March 27, 2023 1:00am September 13, 2024 2:19pm meloxicam 7.5 mg oral tablet (20 sources) Nonsteroidal Anti-inflammatory Drug Start: 04-04-2022 take 1 tablet by mouth once daily meloxicam (MOBIC) 7.5 mg tablet take 1 tablet by mouth once daily 30 tablet 2 04/04/2022 Active Start: 01-06-2022 take 1 tablet by christin th once daily meloxicam (MOBIC) 7.5 mg tablet Take 1 tablet by mouth once daily. 30 tablet 2 01/06/2022 Active Start: 04-19-2021 End: 05-03-2023 take 1 tablet by mouth once daily Meloxicam 15 mg tablet Discontinued 15 mg PO DAILY May 17, 2021 11:39am May 03, 2023 9:59am Do not take in conjunction with other NSAIDs. Comment on above: Take 1 tablet by christin th once daily. take 1 tablet by christin th once daily Miscellaneous Medical Supply mis (4 sources) Start: 06-29-19 End: 05-03-20 Miscellaneous Medical [place] [facility] [place] 1 NMA MC .6 months June 29, 2021 1:00am May 03, 2023 10:00am Handicap placard omega 8-lcd-qze-fish oil 1,000 mg (250 mg-750 mg)/5 mL liqd (11 sources) take 1 capsule by mouth once daily omega 5-gch-mbd-fish oil 1,000 mg (250 mg-750 mg)/5 mL liqd Take 1 capsule by mouth once daily. 0 Active Comment on above: Take 1 capsule by mo [facility] once daily. ondansetron 4 mg oral tablet (11 sources) Serotonin-3 Receptor Antagonist Start: 07-28-19 take 1 tablet by mouth every eight hours as needed ondansetron (ZOFRAN) 4 mg tablet Take 1 tablet by mouth every 8 hours as needed for nausea/vomiting. 10 tablet 0 07/27/2021 Active Comment on above: Take 1 tablet by christin every 8 hours as needed for nausea/vomiting. oxyCODONE hydrochloride 5 mg oral tablet (4 sources) Opioid Agonist Start: 09-24-19 End: 10-01-19 take 5-10 mg by mouth every four hours as needed for pain Oxycodone 5 mg tablet Discontinued 5 - 10 mg PO Q4H as needed for pain 01 10September 23, 2024 September 30, 2024 10:10am predniSONE 10 mg oral tablet (7 sources) Start: 09-23-19 End: 05-03-20 take 4 tablets by mouth once daily, then take 3 tablets by mouth once daily, then take 2 tablets by mouth once daily, then take 1 tablet by mouth once daily Prednisone 10 mg tablet Discontinued 10 mg PO As Directed September 22, 2022 12:00am May 03, 2023 9:59am 4 Tablets daily x3 days, then 3 Tablets daily x3 days, then 2 Tablets daily x3 days, then 1 Tablet daily x3 days Start: 10-26-2020 End: 11-04-2020 predniSONE (DELTASONE) 10 mg tablet Indications: Dermatitis due to plants, including poison vijay, sumac, and oak Take 4 tabs daily for 3 days, then 2 tabs daily for 3 days, then 1 tab daily for 3 days with food. 21 tablet 10/26/2020 11/04/2020 1 ml triamcinolone acetonide 40 mg/ml injection (2 sources) Corticosteroid Start: 01-06-2022 End: 01-06-2022 triamcinolone acetonide 40 mg injection (KeNALog 40) Start: 10-26-2020 End: 07-23-2021 triamcinolone (KENALOG) 0.02 5 % cream Indications: Dermatitis due to plants, including poison vijay, sumac, and oak Apply 1 application to affected area twice daily. 30 g 10/26/2020 07/23/2021 Discontinued Triamcinolone Acetonide (Kenalog) 40 mg/mL suspension (6 sources) Start: 09-30-2022 End: 05-03-2023 inject 40 mg by intramuscular injection once Triamcinolone Acetonide (Kenalog) 40 mg/mL suspension Discontinued 40 mg IM ONCE September 30, 2022 12:00am May 03, 2023 10:00am Start: 09-30-2022 inject 40 mg by intr amuscular injection once Triamcinolone Acetonide (Kenalog) 40 mg/mL suspension Active 40 MG IM ONCE September 30, 2022 12:00am zolpidem tartrate 5 mg oral tablet (10 sources) gamma-Aminobutyric Acid-ergic Agonist Start: 07-27-2021 take 1 tablet by mouth at bedtime as needed zolpidem (AMBIEN) 5 mg tablet Indications: Other insomnia Take 1 tablet by mouth at bedtime as needed for up to 7 days. 7 tablet 0 07/27/2021 Active Comment on above: Take 1 tablet by mouth at bedtime as nee ded for up to 7 days. Problems Active Problems Problem Classification Problem Date Documented Date Episodic/Chronic Allergic reactions (2 sources) Contact dermatitis due to poison vijay; Translations: [Allergic contact dermatitis due to plants, except food] 09-22-2022 Episodic Cardiac dysrhythmias (12 sources) Bradycardia; Translations: [Bradycardia, unspecified] 04-21-2018 Episodic Disorders of lipid metabolism (4 sources) Hyperlipidemia; Translations: [Hyperlipidemia, unspecified] 03-27-2023 Chronic E Codes: Fall (4 sources) Fall; Translations: [Unspecified fall, initial encounter] 09-21-2024 Episodic Essential hypertension (17 sources) Essential hypertension; Translations: [Essential (primary) hypertension] Onset: 01-07-2020 07-23-2021 Chronic Fluid and electrolyte disorders (12 sources) Hyponatremia; Translations: [Hypo-osmolality and hyponatremia] 04-21-2018 Episodic Fracture of upper limb (15 sources) Fracture of unspecified carpal bone, left wrist, initial encounter for closed fracture; Translations: [Fracture of left wrist] Onset: 10-11-2024 09-21-2024 Episodic Heart valve disorders (5 sources) Aortic valve stenosis; Translations: [Nonrheumatic aortic (valve) stenosis] Onset: 04-30-2024 05-03-2023 Chronic Heart valve disorders (4 sources) Heart murmur; Translations: [Cardiac murmur, unspecified] 03-27-2023 Episodic Joint disorders and dislocations; trauma-related (2 sources) Tear of medial meniscus of knee; Translations: [Other tear of medial meniscus, current injury, right knee, initial encounter] Episodic Menopausal disorders (12 sources) Postmenopausal bleeding; Translations: [Postmenopausal bleeding] 04-21-2018 Chronic Osteoarthritis (5 sources) Osteoarthritis of right knee joint; Translations: [Unilateral primary osteoarthritis, right knee] Chronic Other acquired deformities (12 sources) Deformity of lower limb; Translations: [Other specified acquired deformities of left lower leg] 04-21-2018 Episodic Other aftercare (7 sources) Follow-up status; Translations: [Encounter for other orthopedic aftercare] 09-30-2024 Episodic Other aftercare (1 source) Encounter for other orthopedic aftercare; Translations: [Encounter for other orthopedic aftercare] Onset: 09-30-2024 Episodic Other connective tissue disease (12 sources) Enthesopathy of foot region; Translations: [Other enthesopathies, not elsewhere classified] 04-21-2018 Episodic Other connective tissue disease (12 sources) Disorder of fascia; Translations: [Disorder of muscle, unspecified] 04-21-2018 Episodic Other connective tissue disease (8 sources) Plantar fasciitis; Translations: [Plantar fascial fibromatosis] 04-21-2018 Episodic Other connective tissue disease (1 source) Pes anserinus bursitis of right knee; Translations: [Other bursitis of knee, right knee] Episodic Other connective tissue disease (4 sources) Plantar fasciitis of left foot; Translations: [Plantar fascial fibromatosis] 12-09-2016 Episodic Other female genital disorders (12 sources) Endometrial hyperplasia; Translations: [Endometrial hyperplasia, unspecified] 04-21-2018 Chronic Other injuries and conditions due to external causes (1 source) Thumb injury ; Translations: [Unspecified injury of left wrist, hand and finger(s), initial encounter] 10-26-2020 Episodic Other injuries and conditions due to external causes (1 source) Unspecified injury of left wrist, hand and finger(s), initial encounter; Translations: [Unspecified injury of left wrist, hand and finger(s), initial encounter] Onset: 09-17-2024 Episodic Other nervous system disorders (4 sources) Acute postoperative pain; Translations: [Other acute postprocedural pain] 09-23-2024 Episodic Other non-traumatic joint disorders (1 source) Pain in right knee; Translations: [Pain in joint, lower leg] Episodic Other nutritional; endocrine; and metabolic disorders (11 sources) Morbid obesity; Translations: [Morbid (severe) obesity due to excess calories] Onset: 07-23-2021 07-23-2021 Chronic Thyroid disorders (20 sources) Hypothyroidism; Translations: [Hypothyroidism, unspecified] Onset: 07-23-2021 07-23-2021 Chronic Unclassified (3 sources) S52.572A - Other intraarticular fracture of lower end of left radius, initial encounter for closed fracture Past or Other Problems Problem Classification Problem Date Documented Da te Episodic/Chronic Nonmalignant breast conditions (20 sources) Hypertrophy of breast; Translations: [Hypertrophy of breast] Onset: 08-04-2014 08-04-2014 Episodic Other screening for suspected conditions (not mental disorders or infectious disease) (1 source) Encounter for screening mammogram for malignant neoplasm of breast; Translations: [Encounter for screening mammogram for malignant neoplasm of breast] Onset: 03-19-2024 Episodic Results Test Name Value Interpretation Reference Range Facility Anion gap in Serum or Plasma Ordered By: Augustine Pace on 10-14-2024 Anion gap [Moles/Vol] 12 mmol/L - [facility] BUN/creatinine ratioOrdered By: Augustine Pace on 10-14-2024 Urea nitrogen/Creatinine [Mass ratio] 41.7 mg/mg High 10- [facility] Bilirubin, totalOrdered By: Augustine Pace on 10-14-2024 Bilirubin [Mass/Vol] 0.35 mg/dL 0.00-1.30 [facility] Calcium, Urine (Random)on Calcium Ur Baker 5.6 mg/dL Normal Not Estab. [facility] Comment on above: Order Comment: TING Cabello CATHERINE COMMENT-MIACREOrder Date: 10/14/24Order Info: [id number] - CAURComments: 24 HOURSOrder Info: [id number] - NAUOrder Info: [id number] - [facility] Performed By: #### L [id number], [id number], L500.4050, L501.77188, L501.7400, L506.0400, L501.5500, L501.7300 ####[facility] [id number] [place], [place], [id number] Carbon dioxide, total [Moles /volume] in Central venous bloodOrdered By: Augustine Pace on 10-14-2024 CO2 [Moles/Vol] 25.4 mmol/L 21.0-32.0 [facility] Chloride assayOrdered By: Jed Pace on 10-14-2024 Chloride [Moles/Vol] 97 mmol/L Low 98-108 [facility] Comprehensive Metabolic Prof ilon 10-14-2024 Albumin [Mass/Vol] 4.4 g/dL Normal 3.4-4.8 [facility] Comment on above: Order Comment: Order Date: 10/14/24Order Info: [id number] - CMPOrder Info: [id number] - F5LVhpcp Info: [id number] - TSHOrder Info: [id number] - T4F Performed By: #### L [id number], [id number], L500.4050, L501.43645, L501.7400, L506.0400, L501.5500, L501.7300 ####[facility] [id number] [place], [place], [id number] Albumin/Globulin [Mass ratio] 1.5 {ratio} Normal 0.9-2.4 [facility] Comment on above: Order Comment: Order Date: 10/14/24Order Info: 0786-1 - CMPOrder Info: 0 - O5BKfxea Info: 3015-07 - TSHOrder Info: 3023-11 - T4F Performed By: #### L 501.2240, L501.9520, L500.4050, L501.56897, L501.7400, L506.0400, L501.5500, L501.7300 ####[facility] [address] [place], [address] ALK PHOS 100 U/L Normal 35-104 [facility] Comment on above: Order Comment: Order Date: 10/14/24Order Info: 86-1 - CMPOrder Info: 0 - I9EHbbav Info: 3015-07 - TSHOrder Info: 3023-11 - T4F Performed By: #### L 501.2240, L501.9520, L500.4050, L501.84779, L501.7400, L506.0400, L501.5500, L501.7300 ####[facility] [address] [place], [address] ALT [Catalytic activity/Vol] 16 U/L Normal <=34 [facility] Comment on above: Order Comment: Order Date: 10/14/24Order Info: 0786-1 - CMPOrder Info: 0 - H8QTretu Info: 3015-07 - TSHOrder Info: 3023-11 - T4F Performed By: #### L 501.2240, L501.9520, L500.4050, L501.16496, L501.7400, L506.0400, L501.5500, L501.7300 ####[facility] [address] [place], [address] AST [Catalytic activity/Vol] 24 U/L Normal <=31 [facility] Comment on above: Order Comment: Order Date: 10/14/24Order Info: 0786-1 - CMPOrder Info: 0 - T7VQogtc Info: 3016-3 - TSHOrder Info: 3024-7 - T4F Performed By: #### L 501.2240, L501.9520, L500.4050, L501.56190, L501.7400, L506.0400, L501.5500, L501.7300 ####[facility] [address] [place], [address] Bilirubin [Mass/Vol] 0.35 mg/dL Normal 0.00-1.30 [facility] Comment on above: Order Comment: Order Date: 10/14/24Order Info: 0786-1 - CMPOrder Info: 3051-0 - P4OKrivq Info: 3016-3 - TSHOrder Info: 3024-7 - T4F Performed By: #### L 501.2240, L501.9520, L500.4050, L501.59927, L501.7400, L506.0400, L501.5500, L501.7300 ####[facility] [address] [place], [address] BUN/CRE 41.7 RATIO High 10-20 [facility] Comment on above: Order Comment: Order Date: 10/14/24Order Info: 0786-1 - CMPOrder Info: 3051-0 - M9VLdijo Info: 3016-3 - TSHOrder Info: 3024-7 - T4F Performed By: #### L 501.2240, L501.9520, L500.4050, L501.94375, L501.7400, L506.0400, L501.5500, L501.7300 ####[facility] [address] [place], [address] Calcium [Mass/Vol] 9.8 mg/dL Normal 7.6-11.0 [facility] Comment on above: Order Comment: Order Date: 10/14/24Order Info: 0786-1 - CMPOrder Info: 3051-0 - Q2GEojmn Info: 3016-3 - TSHOrder Info: 3024-7 - T4F Performed By: #### L 501.2240, L501.9520, L500.4050, L501.61273, L501.7400, L506.0400, L501.5500, L501.7300 ####[facility] [address] [place], [address] Chloride [Moles/Vol] 97 mmol/L Low 98-108 [facility] Comment on above: Order Comment: Order Date: 10/14/24Order Info: 0786-1 - CMPOrder Info: 3051-0 - W4RLutic Info: 3016-3 - TSHOrder Info: 3024-7 - T4F Performed By: #### L 501.2240, L501.9520, L500.4050, L501.48545, L501.7400, L506.0400, L501.5500, L501.7300 ####[facility] [address] [place], [address] CO2 [Moles/Vol] 25.4 mmol/L Normal 21.0-32.0 [facility] Comment on above: Order Comment: Order Date: 10/14/24Order Info: 785-1 - CMPOrder Info: 3050-0 - B3JCfort Info: 3016-3 - TSHOrder Info: 3024-7 - T4F Performed By: #### L 501.2240, L501.9520, L500.4050, L501.16736, L501.7400, L506.0400, L501.5500, L501.7300 ####[facility] [address] [place], [address] Creatinine [Mass/Vol] 0.67 mg/dL Low 0.70-1.20 [facility] Comment on above: Order Comment: Order Date: 10/14/24Order Info: 0786-1 - CMPOrder Info: 3051-0 - D4RZqzdr Info: 3016-3 - TSHOrder Info: 3024-7 - T4F Performed By: #### L 501.2240, L501.9520, L500.4050, L501.94187, L501.7400, L506.0400, L501.5500, L501.7300 ####[facility] [address] [place], [address] GAP 12 Normal 5-15 [facility] Comment on above: Order Comment: Order Date: 10/14/24Order Info: 0786-1 - CMPOrder Info: 0 - X8QHyncb Info: 3 - TSHOrder Info: 7 - T4F Performed By: #### L 501.2240, L501.9520, L500.4050, L501.74050, L501.7400, L506.0400, L501.5500, L501.7300 ####[facility] [address] [place], [place], [phone](286) GFR/1.73 sq M.predicted among non-blacks MDRD (S/P/Bld) [Vol rate/Area] 97 mL/min/{1.73_m2} Normal >60 [facility] Comment on above: Order Comment: Order Date: 10/14/24Order Info: 785-1 - CMPOrder Info: 0 - M1XWysxp Info: 3 - TSHOrder Info: 7 - T4F Result Comment: mL/m in/1.73m2 CKD-EPI Creatinine Equation (2020) Performed By: #### L 501.2240, L501.9520, L500.4050, L501.01460, L501.7400, L506.0400, L501.5500, L501.7300 ####[facility] [address] [place], [place], [phone] Globulin (S) [Mass/Vol] 2.9 g/dL Normal 2.2-4.2 [facility] Comment on above: Order Comment: Order Date: 10/14/24Order Info: 0786-1 - CMPOrder Info: 0 - M5JQyvml Info: 3015-07 - TSHOrder Info: 3024-7 - T4F Performed By: #### L 501.2240, L501.9520, L500.4050, L501.16664, L501.7400, L506.0400, L501.5500, L501.7300 ####[facility] [address] [place], [address] Glucose [Mass/Vol] 118 mg/dL High 70-99 [facility] Comment on above: Order Comment: Order Date: 10/14/24Order Info: 07-1 - CMPOrder Info: 0 - Q4UEtxgi Info: 3013 - TSHOrder Info: 3024-7 - T4F Performed By: #### L 501.2240, L501.9520, L500.4050, L501.21813, L501.7400, L506.0400, L501.5500, L501.7300 ####[facility] [address] [place], [address] Potassium [Moles/Vol] 5.1 mmol/L Normal 3.3-5.1 [facility] Comment on above: Order Comment: Order Date: 10/14/24Order Info: 785- - CMPOrder Info: 0 - W5JGnlwi Info: 3013 - TSHOrder Info: 3024-7 - T4F Performed By: #### L 501.2240, L501.9520, L500.4050, L501.28704, L501.7400, L506.0400, L501.5500, L501.7300 ####[facility] [address] [place], [address] Sodium [Moles/Vol] 134 mmol/L Normal 133-145 [facility] Comment on above: Order Comment: Order Date: 10/14/24Order Info: 07-1 - CMPOrder Info: 0 - U2ZIqdma Info: 30163 - TSHOrder Info: 3024-7 - T4F Performed By: #### L 501.2240, L501.9520, L500.4050, L501.97358, L501.7400, L506.0400, L501.5500, L501.7300 ####[facility] [address] [place], [place], [phone] T PROT 7.2 g/dL Normal 5.9-8.4 [facility] Comment on above: Order Comment: Order Date: 10/14/24Order Info: 0786-1 - CMPOrder Info: 3051-0 - Z6ODkbjr Info: 3016-3 - TSHOrder Info: 3024-7 - T4F Performed By: #### L 501.2240, L501.9520, L500.4050, L501.09731, L501.7400, L506.0400, L501.5500, L501.7300 ####[facility] [address] [place], [place], [phone] Urea nitrogen [Mass/Vol] 28 mg/dL High 4-19 [facility] Comment on above: Order Comment: Order Date: 10/14/24Order Info: 0786-1 - CMPOrder Info: 3051-0 - X5SWhdmz Info: 3016-3 - TSHOrder Info: 3024-7 - T4F Performed By: #### L 501.2240, L501.9520, L500.4050, L501.32426, L501.7400, L506.0400, L501.5500, L501.7300 ####[facility] [address] [place], [place], [phone] Free T3on 10-14-2024 Free T3 [Mass/Vol] 4.0 pg/mL High 2.18-3.98 [facility] Comment on above: Order Comment: Order Date: 10/14/24Order Info: 0786-1 - CMPOrder Info: 3051-0 - V4NNytek Info: 3016-3 - TSHOrder Info: 3024-7 - T4F Performed By: #### L 501.2240, L501.9520, L500.4050, L501.58907, L501.7400, L506.0400, L501.5500, L501.7300 ####[facility] [address] [place], [place], [phone] Free R9Pdwnlyk By: Augustine torres on 10-14-2024 Free T3 [Mass/Vol] 4.0 pg/mL High 2.18-3.98 [facility] Glomerular filtration rate ( GFR) estimation/1.73 sq m using serum, plasma, or whole bOrdered By: Augustine Pace on 10-14-2024 GFR/1.73 sq M.predicted among non-blacks MDRD (S/P/Bld) [Vol rate/Area] 97 mL/min/{1.73_m2} >60 [facility] Comment on above: mL/min/1.73m2 CKD-EP I Creatinine Equation (2020) Laboratory - Chemistry and C hemistry - challengeOrdered By: Augustine Pace on 10-14-2024 AST [Catalytic activity/Vol] 24 U/L <32 [facility] Microalb:Creat Ratio,Random URon 10-14-2024 Creatinine [Mass/Vol] 24.30 mg/dL Low 28.00-217.0 0 [facility] Comment on above: Order Comment: TING CA-MIACRE Order Date: 10/14/24 Order Info: 79828-4 - CAUR Comments: 24 HOURS Order Info: 2955-3 - AGUILAR Order Info: 2695-5 - [facility] Performed By: #### L 502.0250 #### [facility] [address] [place], [place], [phone] MALB:CREAT UNABLE TO CALCULATE Normal [facility] Comment on above: Order Comment: TING ALEXANDER COMMENT-MIACRE Order Date: 10/14/24 Order Info: 38888-8 - CAUR Comments: 24 HOURS Order Info: 2955-3 - AGUILAR Order Info: 2695-5 - [facility] Performed By: #### L 502.0250 #### [facility] [address] [place], [place], [phone] MICROALBUMIN,UR < 12.0 Normal NO RANGE EST. [facility] Comment on above: Order Comment: PER I CATHERINE COMMENT-MIACRE Order Date: 10/14/24 Order Info: 70888-4 - CAUR Comments: 24 HOURS Order Info: 2955-3 - AGUILAR Order Info: 06309-16 - [facility] Performed By: #### L 502.0250 #### [facility] [address] [facility] [place], [place], [phone] Microalbumin/creat ratio urO rdered By: Augustine Pace on 10-14-2024 Urine microalbumin/creatin ine ratio measurement UNABLE TO CALCULATE mg/g CRE [facility] Osmolality urOrdered By: Hailee Pace on 10-14-2024 Osmolality (U) [Osmolality] 359 mOsm/KG >50 [facility] Comment on above: Normal Urine Referen ce Ranges Random: 50 - 1200 mOsm/kg H20 depending on fluid intake Random: >850 mOsm/kg after 12 hour fluid restriction 24 hour: ~300 - 900 mOsm/kg H2O Osmolality, Serumon 10-15-19 25 OSMOLALITY,SER 300 mOsm/KG Normal 280-301 [facility] Comment on above: Order Comment: Order Date: 10/14/24Order Info: 26906-16 - OS Performed By: #### L 501.2240, L501.9520, L500.4050, L501.00549, L501.7400, L506.0400, L501.5500, L501.7300 ####[facility] [address] [facility] [place], [place], [address] Osmolality, Urineon 10-15-19 25 OSMOLALITY,UR 359 mOsm/KG Normal [facility] Comment on above: Order Comment: TING I CATHERINE COMMENT-MIACREOrder Date: 10/14/24Order Info: 92321-1 - CAURComments: 24 HOURSOrder Info: 2955-3 - NAUOrder Info: 918-5 - [facility] Result Comment: Normal Urine Reference Ranges Random: 50 - 1200 mOsm/kg H20 depending on fluid intake Random: >850 mOsm/kg after 12 hour fluid restriction 24 hour: 300 - 900 mOsm/kg H2O Performed By: #### L 501.2240, L501.9520, L500.4050, L501.91415, L501.7400, L506.0400, L501.5500, L501.7300 ####[facility] [address] [place], [address] Potassium measurement (mass/ volume)Ordered By: Augustine Pace on 10-14-2024 Potassium (Unsp spec) [Mass/Vol] 5.1 mmol/L 3.3-5.1 [facility] Random urine creatinine jena urement (mass/volume)Ordered By: Augustine Pace on 10-14-2024 Creatinine Unsp time (U) [Mass/Vol] 24.30 mg/dL Low 28.00-217.0 0 [facility] Serum creatinine measurement (mass/volume)Ordered By: Augustine Pace on 10-14-2024 Creatinine [Mass/Vol] 0.67 mg/dL Low 0.70-1.20 [facility] Serum globulin measurementOr dered By: Augustine Pace on 10-14-2024 Globulin (S) [Mass/Vol] 2.9 g/dL 2.2-4.2 [facility] Serum glucose measurement (m ass/volume)Ordered By: Augustine Pace on 10-14-2024 Glucose [Mass/Vol] 118 mg/dL High 70-99 [facility] Serum or plasma alanine lucas otransferase (ALT) measurementOrdered By: Augustine Pace on 10-14-2024 ALT [Catalytic activity/Vol] 16 U/L <35 [facility] Serum or plasma albumin jena urement (mass/volume)Ordered By: Augustine Pace on 10-14-2024 Albumin [Mass/Vol] 4.4 g/dL 3.4-4.8 [facility] Serum or plasma albumin/glob ulin mass ratioOrdered By: Augustine Pace on 10-14-2024 Albumin/Globulin [Mass ratio] 1.5 {ratio} 0.9-2.4 [facility] Serum or plasma alkaline bobby sphatase measurementOrdered By: Augustine Pace on 10-14-2024 ALP [Catalytic activity/Vol] 100 U/L 35-104 [facility] Serum or plasma calcium jena urement (mass/volume)Ordered By: Augustine Pace on 10-14-2024 Calcium [Mass/Vol] 9.8 mg/dL 7.6-11.0 [facility] Serum or plasma urea nitroge n measurement (mass/volume)Ordered By: Augustine Pace on 10-14-2024 Urea nitrogen [Mass/Vol] 28 mg/dL High 4-19 [facility] Sodium levelOrdered By: Augustine Pace on 10-14-2024 Sodium [Moles/Vol] 134 mmol/L 133-145 [facility] T4 Free Directon 10-14-2024 T4 FREE DIRECT 1.20 ng/dL Normal 0.76-1.46 [facility] Comment on above: Order Comment: Order Date: 10/14/24Order Info: 0786-1 - CMPOrder Info: 3051-0 - S1OIvbsp Info: 3016-3 - TSHOrder Info: 3023-11 - T4F Performed By: #### L 501.2240, L501.9520, L500.4050, L501.69447, L501.7400, L506.0400, L501.5500, L501.7300 ####[facility] [address] [place], [place], [address] T4 freeOrdered By: Augustine torres on 10-14-2024 Free T4 [Mass/Vol] 1.20 ng/dL 0.76-1.46 [facility] TSH DL <= 0.005 mIU/L QnOrde red By: Augustine Pace on 10-14-2024 TSH Qn 0.158 uIU/mL Low 0.300-4.200 [facility] Thyroid Stim Hormone (TSH)on 10-14-2024 TSH 0.158 uIU/mL Low 0.300-4.200 [facility] Comment on above: Order Comment: Order Date: 10/14/24Order Info: 0786-1 - CMPOrder Info: 3051-0 - I3WEqaxq Info: 3016-3 - TSHOrder Info: 3027 - T4F Performed By: #### L 501.2240, L501.9520, L500.4050, L501.55660, L501.7400, L506.0400, L501.5500, L501.7300 ####[facility] [address] [place], [place], [address] Total proteinOrdered By: Hailee Pace on 10-14-2024 Protein [Mass/Vol] 7.2 g/dL 5.9-8.4 [facility] Urine Sodiumon 10-14-2024 Sodium (U) [Moles/Vol] 46 mmol/L Normal Not Establ. [facility] Comment on above: Order Comment: PER Irineo NTERYUE COMMENT-MIACREOrder Date: 10/14/24Order Info: 56948-5 - CAURComments: 24 HOURSOrder Info: 2955-3 - NAUOrder Info: 2695-5 - [facility] Performed By: #### L 501.2240, L501.9520, L500.4050, L501.52216, L501.7400, L506.0400, L501.5500, L501.7300 ####[facility] [address] [place], [place], [address] Urine albumin measurement [facility] detection limit of 20 mg/L or less (mass/volume)Ordered By: Augustine Pace on 10-14-2024 Albumin DL <= 20 mg/L (U) [Mass/Vol] < 12.0 mg/L NO RANGE EST. [facility] Urine sodium measurement (mo les/volume)Ordered By: Augustine Pace on 10-14-2024 Sodium (U) [Moles/Vol] 46 mmol/L Not Establ. [facility] OT General Evaluationon 09-13 OT General Evaluation [facility] Occupational Therapy Health[address] [place] [address] / REHABILITATION SERVICES INITIAL EVALUATION MR#: [id number] Acct: [id number] Name: ROSANNE BANERJEE Rep #: [id number] : 1960 63 From: Imelda LINDSAY/Ela, CHT Referring Dr.: Dr. Brian Garcia DO Status: R EG RCR Insurance: [facility] Eval Date: SELF PAY INSURANCE Patient's Visit Information Visit Information Visit Information: ROSANNE BANERJEE is a 63 year old F, referred to Occupational Therapy by Dr. 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 Date of Evaluation: 10/09/24 Occupational Therapist: Imelda Amador, ANGÉLICA/Ela, CHT Subjective Subjective: This 63 year old female was seen for OT eval with dx left intraarticular fx of left lower end radius. Pt states she fell waking on a slippery sidewalk. September 13 went to ER and followed up with Dr. Esqueda on 09/18/24 and had sx for ORIF of distal radius on 09/23/14. pt is right handed pt is retired pt states she likes to garden and feels she can not do this at this time has dog she walk 2 miles every day pt lives alone and struggles with home mtg and daily tasks. pt would like to return to he PLOF. Pain left wrist: Current Pain Intensity: 0 Pain Intensity Range: 3 ROM Forearm: right/left WNL Wrist: right 70/70 left 55/40 ROM Comments: right RD [address] 20 UD 30 pt demo full composite fist and thumb opposition with no noted scar adhesions at this time, Strength Strength Comments: will test at later date Sensation Sensation Comments: thumb tip tingle/numbness Quick DASH-Disab of Arm,Shoulder Hand Quick DASH Score: 40.0000 Goals Goal:ROM equal to unaffected hand: Yes Goal:Auger Operator/Pinch strength at least 75% of unaffected hand: Yes Goal:No pain with affected hand use: Yes Goal:Full use of affected hand in daily activities including work: Yes Goal:Decrease scar hypersensitivity: Yes Other Goal: pt will demo understanding of elevation, ice to decrease edema by end of 1st session. Rehabilitation General Assessment: pt arrives 2 weeks and 2 days s/p from a ORIF of left distal radius. pt limited with use of left UE with all ADLs and IADls at this time. pt demo need for skilled OT services 1-2x week for 6-8 weeks to return pt to her PLOD. . Today therapist reviewed ROM, edema and tendon glide ex. Pt demo good ROM for being 2 weeks s/p. therapist will work with pt 1x week to endure gains with ROM and once pt is back from vacation and cleared to strengthen will initiate therapy 2x week. Pt demo understanding and agree to POC. Rehabilitation Potential: Good Anticipated Interventions Anticipated Interventions: A/AAROM/PROM, Strengthening, Edema Control, Triggerpoint Release, Modalities, Joint Protection/Energy Conservation, Ergonomic Education, Education re assistive Equipment, Education re Diagnosis and Home Program Visit Plan Frequency: 1-2x /Week Duration: 6 Weeks TEXT: Thank you for the opportunity to evaluate your patient. For Medicare and Medicare HMO plans, please review the plan of care and approve it. It will need to be FAXED BACK to us at [phone] for Medicare purposes. Please let me know if there are questions or concerns regarding this plan of care. Physician Signature: ___Date: 10/09/24 1348 CC: Dr. Augustine Pace MD; Dr. Brian Garcia DO CRYSTAL Signed For Medicare only, by signing this I certify the plan of care. Physicians Signature Date Normal [facility] Orthopedic Visit Reporton Orthopedic Visit Report [facility] [address] [place] [address] OFFICE VISIT Date of Service: 10/09/24 MR#: [id number] Acct: [id number] Name: ROSANNE BANERJEE Rep #: [id number] : 1960 Provider: Dr. Brian katz DO Age/Sex: 63/F Location: [facility] Status: Signed Intake Vital Signs 09/18/24 08:32 09/23/24 11:42 Height 5 ft 2 in 5 ft 2 in Intake Visit Reasons: LEFT WRIST Chief Complaint: 2 week post-op Accompanied by: Self Is patient in pain?: No Allergies ramipril (From Altace) Allergy (Verified 10/09/24 10:10) Swelling ARB-Angiotensin Receptor Antagonist Adverse Reaction (Severe, Verified 10/09/24 10:10) Angioedema Medications ???Medication ???Instructions ???Recorded ???Confirmed ???Type levothyroxine 125 mcg tablet 100 mcg PO DAILY 03/18/15 10/09/24 History liothyronine 25 mcg tablet 25 mcg PO DAILY 03/18/15 10/09/24 History cholecalciferol (vitamin D3) 50 2,000 unit PO DAILY 04/13/1810/09 History mcg (2,000 unit) capsule (Vitamin D3) melatonin 3 mg capsule 3 mg PO HS PRN sleep 03/27/2309/13 History omega-3 fatty acids 1,000 mg 1,000 mg PO DAILY 03/27/23 5 History capsule Held on 09/23/24. Instructions: Resume on 09/30/24. metoprolol succinate 25 mg 25 mg PO DAILY #90 tabs 05/27/24 0 10/09/24 Rx tablet,extended release 24 hr amlodipine 10 mg tablet 10 mg PO QHS 09/13/24 10/09/24 His tory hydrochlorothiazide 12.5 mg tablet 12.5 mg PO DAILY 09/13/24 History turmeric 400 mg PO DAILY 09/13/24 10/09/24 History Held on 09/23/24. Instructions: Resume on 09/30/24. acetaminophen 325 mg tablet 325 mg PO ONCE PRN pain 09/18/24 0 10/09/24 History (Tylenol) cephalexin 500 mg capsule 1,000 mg (2 x 500 mg) PO Q8H #4 10/09/24 Rx caps Have you fallen in the past year?: Yes PFSH Medical History Wears contact lenses Wears glasses Thyroid disease History of edema Non-smoker History of stress test Heart murmur History of echocardiogram Cardiology follow-up encounter Essential (primary) hypertension Hyperlipidemia Postmenopausal bleeding Surgical History History of esophagogastroduodenoscopy (EGD) History of colonoscopy History of repair of right rotator cuff History of medial meniscus repair of right knee History of ankle surgery History of foot surgery S/P hysterectomy ( 2018) Family History Mother Hypertension CVA (cerebral vascular accident) Diabetes Father Hypertension Cancer Grandmother CAD (coronary artery disease) Social History Smoking Status: Never smoker alcohol intake: current substance use type: does not use HPI LEFT WRIST Details: This documentation accurately reflects the service provided and the decisions made by me, Dr. Brian Garcia, DO 10/09/24 0748. Part of today???s visit was documented by Hailey Chapin ATC, acting as scribe. ROSANNE BANERJEE is a 63 year old F here today for s/p ORIF distal radius DOS 09/23/2024. Patient denies any pain today and states she is doing well. She does have her first therapy session today so she did take some Aleve this morning prior to her appointment. She denies any concerns with the incision. She has regained most of her motion on her own already. Ortho Exam General General: Yes no acute distress and Yes well groomed Neurologic: Yes alert and Yes oriented x3 Psychologic: Yes reasonable and appropriate Left Wrist/Hand Date of Surgery: 09/23/24 Skin/Wound: Yes CDI, Yes healing, Yes suture/sebas removed, Yes capillary refill normal and No erythema WRIST: 88 supination full pronation 70 wrist extension 30 wrist flexion Sutures were removed today no signs of infection or DVT her swelling is minimal her range of motion is excellent. Supplemental Info 09/23/2024 ORIF left distal radius: Dr. Garcia 09/13/2024 x-ray Left wrist: left wrist pre and postreduction x-rays intra-articular impacted dorsally angulated distal radius fracture prereduction postreduction anatomic is improved however there is some residual tilt to the articular surface dorsal tilt to articular surface 11 degrees. Coding Level of Care Code Global Post Op Diagnoses Orthopedic aftercare Z47.89 Assessment and Plan Assessment and Plan (1) Orthopedic aftercare: Status: Acute Plan Explained to patient that she should continue with 1/2 pound weight restrictions and should not lift anything more than a fork, spoon, pen/pencil or light coffee cup. She should continue with her range of motion exercises (more content not included)... Normal [facility] Orthopedic Visit Reporton Orthopedic Visit Report [facility] [address] [place] [address] [address] [place] [address] OFFICE VISIT Date of Service: 09/30/24 MR#: [id number] Acct: [id number] Name: ROSANNE BANERJEE Rep #: [id number] : 1960 Provider: Dr. Brian katz DO Age/Sex: 63/F Location: [facility] Status: Signed Intake Vital Signs 09/18/24 08:32 09/23/24 11:42 Height 5 ft 2 in 5 ft 2 in Intake Visit Reasons: LEFT WRIST Chief Complaint: 1 week post-op Accompanied by: Self Is patient in pain?: No Allergies ramipril (From Altace) Allergy (Verified 09/30/24 10:09) Swelling ARB-Angiotensin Receptor Antagonist Adverse Reaction (Severe, Verified 09/30/24 10:09) Angioedema Medications ???Medication ???Instructions ???Recorded ???Confirmed ???Type levothyroxine 125 mcg tablet 100 mcg PO DAILY 03/18/15 09/30/24 History liothyronine 25 mcg tablet 25 mcg PO DAILY 03/18/15 09/30/24 History cholecalciferol (vitamin D3) 50 2,000 unit PO DAILY 04/13/1809/30 History mcg (2,000 unit) capsule (Vitamin D3) melatonin 3 mg capsule 3 mg PO HS PRN sleep 03/27/2309/12 History omega-3 fatty acids 1,000 mg 1,000 mg PO DAILY 03/27/23 5 History capsule Held on 09/23/24. Instructions: Resume on 09/30/24. metoprolol succinate 25 mg 25 mg PO DAILY #90 tabs 05/27/24 0 09/30/24 Rx tablet,extended release 24 hr amlodipine 10 mg tablet 10 mg PO QHS 09/13/24 09/30/24 His tory hydrochlorothiazide 12.5 mg tablet 12.5 mg PO DAILY 09/13/24 History turmeric 400 mg PO DAILY 09/13/24 09/30/24 History Held on 09/23/24. Instructions: Resume on 09/30/24. acetaminophen 325 mg tablet 325 mg PO ONCE PRN pain 09/18/24 0 09/30/24 History (Tylenol) cephalexin 500 mg capsule 1,000 mg (2 x 500 mg) PO Q8H #4 09/30/24 Rx caps Have you fallen in the past year?: Yes PFSH Medical History Wears contact lenses Wears glasses Thyroid disease History of edema Non-smoker History of stress test Heart murmur History of echocardiogram Cardiology follow-up encounter Essential (primary) hypertension Hyperlipidemia Postmenopausal bleeding Surgical History History of esophagogastroduodenoscopy (EGD) History of colonoscopy History of repair of right rotator cuff History of medial meniscus repair of right knee History of ankle surgery History of foot surgery S/P hysterectomy ( 2018) Family History Mother Hypertension CVA (cerebral vascular accident) Diabetes Father Hypertension Cancer Grandmother CAD (coronary artery disease) Social History Smoking Status: Never smoker alcohol intake: current substance use type: does not use HPI LEFT WRIST Details: This documentation accurately reflects the service provided and the decisions made by me, Dr. Brina Garcia, DO 09/30/24 0758. Part of today???s visit was documented by Hailey Chapin ATC, acting as scribe. ROSANNE BANERJEE is a 63 year old F here today for 1 week postop left wrist ORIF. Patient denies any pain today. She has not been taking the oxycodone that was prescribed after surgery. Patient states she was mostly taking Tylenol but has not taken anything since morning. Ortho Exam General General: Yes no acute distress and Yes well groomed Neurologic: Yes alert and Yes oriented x3 Psychologic: Yes reasonable and appropriate Left Wrist/Hand Skin/Wound: Yes healing WRIST: stiffness present particularly with supination and extension of the wrist her incision is well- approximated with no signs of infection her sutures are in place she has neurovascular intact compartments soft Supplemental Info 09/23/2024 ORIF left distal radius: Dr. Garcia 09/13/2024 x-ray Left wrist: left wrist pre and postreduction x-rays intra-articular impacted dorsally angulated distal radius fracture prereduction postreduction anatomic is improved however there is some residual tilt to the articular surface dorsal tilt to articular surface 11 degrees. Coding Level of Care Code Global Post Op Diagnoses Orthopedic aftercare Z47.89 Assessment and Plan Assessment and Plan (1) Orthopedic aftercare: Status: Acute Orders: Referrals Occupational Therapy Referral S52.572A - Other intraarticular fracture of lower end of left radius, initial encounter for closed fracture Plan Removed splint today but left the sutures in. Sutures will be removed next week at her 2 week post- op appointment. Explained she really needs to focus on her range of motion every day. She should be doing range of motio (more content not included)... Normal [facility] Discharge Instructionon 09-12 Discharge Instruction [facility] Medical Records Department [address] [place] [address] Instructions for Home/Discharge Instructions 09/23/24 1448 MR#: [id number] Acct: [id number] Name: ROSANNE BANERJEE Rep #: [id number] : 1960 63 From: Brian Garcia DO PCP: Dr. Augustine Pace MD Status:[facility] Discharge Instructions Diet Discharge Diet: No restrictions Activity Keep extremity elevated above heart level: Operative Extremity Dressing / Incision Additional Dressing/Incision Instructions:: Strict elevation of operative extremity above heart for next 72 hours. Ice 15 minutes on 15 minutes off. Continue ice and elevation for 7 days postoperatively. Encourage finger range of motion. No lifting pushing or pulling more than a coffee cup. Must keep splint on clean and dry. Follow-up in office in 1 week Follow Up Care Please Follow Up With: Brian Garcia DO When: 2 weeks Test Results: Test results from this visit will be discussed in further detail at your follow-up appointment, if applicable. Discharge Plan Admission Primary Reason for Your Visit: Left distal radius ORIF Attending Provider: Brian Garcia Primary Care Provider: Augustine Pace Instructions Print Language: Serbian Discharge Orders/Prescriptions Prescriptions: New cephalexin 500 mg capsule 1,000 mg PO Q8H Qty: 4 0RF Rx Instructions: Take 2 tabs before you go to bed and 2 tabs after 5 AM morning after surgery when you wake up oxycodone 5 mg tablet 5 - 10 mg PO Q4H PRN (Reason: pain) 5 Days Qty: 20 0RF Continued melatonin 3 mg capsule 3 mg PO HS PRN (Reason: sleep) Patient Comments: PT STATES SHE TAKES A COMBINATION SUPPLEMENT THAT CONTAINS BOTH MELATONIN AND MAGNESIUM. acetaminophen [Tylenol] 325 mg tablet 325 mg PO ONCE PRN (Reason: pain) liothyronine 25 MCG tablet 25 mcg PO DAILY levothyroxine 125 MCG tablet 100 mcg PO DAILY cholecalciferol (vitamin D3) [Vitamin D3] 2,000 UNIT capsule 2,000 unit PO DAILY amlodipine 10 mg tablet 10 mg PO QHS hydrochlorothiazide 12.5 mg tablet 12.5 mg PO DAILY metoprolol succinate 25 mg tablet extended release 24 hr 25 mg PO DAILY Qty: 90 3RF Held omega-3 fatty acids 1,000 mg capsule 1,000 mg PO DAILY Hold Instructions: Resume on 09/30/24. turmeric 400 mg PO DAILY Hold Instructions: Resume on 09/30/24. Other Ambulatory Orders: 12 Lead EKG (Routine) Location: None Selected Ordered By: Dr. Ramsey Melgoza Referrals / Follow Up: Augustine Pace MD [Primary Care Provider] - Disposition Disposition (needs filled in before D/C Order can be placed): Home, Self Care 09/23/24 1453 Brian Garcia DO CC: Dr. Augustine Pace MD Signed Normal [facility] MR/POSTOP.EZIO 09-23-2024 MR/POSTOP.[facility] Medical Records Department [address] [place] [address] Anesthesia Postop Eval I 09/23/24 1450 MR#: [id number] Acct: [id number] Name: ROSANNE BANERJEE Rep #: [id number] : 1960 63 From: Kuldeep Mckenna CRNA PCP: Dr. Augustine Pace MD Status:[facility] Y Race: C Location: [place] [address] Anesthesia: Postop Eval I Current Vital Signs Temperature: 98.8 F Pulse Rate: 68 Blood Pressure: 138/74 Respiratory Rate: 22 Pulse Ox: 97 Oxygen Delivery Method: Room Air Assessment Airway patent: Yes Spontaneous unlabored respirations: Yes Mental status: Awake and Calm nausea: No Vomiting: No Anesthesia Complication: No Fluid Hydration Crystalloid volume administer (ml): 800 Total IV fluid infused: 800 Progress Note Anesthesia document: Postop Eval 1 completed: Yes 09/23/24 1451 Date Kuldeep Mckenna AS400 CONSULTANT Cosigner Signature: Date CC: Signed Normal [facility] MR/[id number] 09-23-2024 MR/POSTOPAN2 [facility] Medical Records Department [address] [place] [id number] Anesthesia Postop Eval II 09/23/24 1829 MR#: [id number] Acct: [id number] Name: ROSANNE BANERJEE Rep #: [id number] : 1960 63 From: Ramsey Melgoza MD PCP: Dr. Augustine Pace MD Status:[facility] Y Race: C Location: [facility] Anesthesia Postop Eval I Sum Postop Eval Completion status Anesthesia document: Postop Eval 1 completed: Yes Anesthesia Postop Eval I Summary Anesthesia Postop Eval I Summary: Anesthesia Postop Eval I: Assessment Summary Airway patent Yes 09/23/24 14:51 AS400 CONSULTANT.JBOR Spontaneous unlabored Yes 09/23/24 14:51 AS400 CONSULTANT.JBOR respirations Mental status Awake,Calm 09/23/24 14:51 AS400 CONSULTANT.JBOR nausea No 09/23/24 14:51 AS400 CONSULTANT.JBOR Vomiting No 09/23/24 14:51 AS400 CONSULTANT.JBOR Anesthesia Postop Eval I: Fluid Summary Crystalloid volume administer 800 09/23/24 14:51 AS400 CONSULTANT.JBOR (ml) Colloids volume administered ( ml) Blood Product volume administered (ml) Total IV fluid infused 800 09/23/24 14:51 AS400 CONSULTANT.JBOR Anesthesia Postop Eval I: Summary Notes Anesthesia Complication No 09/23/24 14:51 AS400 CONSULTANT.JBOR Anesthesia Complication Comment: Post-operative progress note Anesthesia: Postop Eval II Evaluation Mental status: Awake and Calm Pain Level: 0 nausea: No Vomiting: No Progress Note Post-operative progress note: Patient's pain level was a 7/10 in PACU. She elected to go ahead and proceed with the axillary block for pain control. After the block was performed patient's pain level was a 0/10. Complications Anesthesia Complication: No 09/23/24 1830 Date Ramsey Melgoza MD Cosigner Signature: Date CC: Signed Normal [facility] Operative Reporton 5 Operative Report [facility] Medical Records Department [address] [place] [address] Operative Report 09/23/24 1444 MR#: [id number] Acct: [id number] Name: ROSANNE BANERJEE Rep #: [id number] : 1960 63 From: Brian Garcia DO PCP: Dr. Augustine Pace MD Status:[facility] Location: [place] [address] Operative Report (Standard) Operative Information Date of Procedure: 09/23/24 Pre-Operative Diagnosis: Left distal radius comminuted intra-articular fracture greater than 3 fragments Post-Operative Diagnosis: Same Surgery/Procedure Performed: ORIF distal radius carbide operator: Yes Blown Film Extrusion Operator: Ronn Ugarte Tasks completed by public aid eligibility assistant: Opening closing, Implanting device, Hemostasis: Electrocautery and Retracting Additional foundation assistant?: No Type of Anesthesia: General RN Documented Start/Stop Times: Operation Date: 09/23/24 13:00 Case Time Into Pre-Op 09/23/24 11:29 Anesthesia Start 09/23/24 13:15 Into Room 09/23/24 13:15 Out of Pre-Op 09/23/24 13:15 Procedure Start 09/23/24 13:38 Procedure End 09/23/24 14:35 Procedure Start Time: 13:38 Procedure Stop Time: 14:35 Select all DRAINS/GRAFTS/IMPLANTS that apply: Implanted device Implanted device details: Synthes distal radius variable angle locking plate Estimated Blood Loss: 5 Specimen collected: No Description of surgery: Preoperative diagnosis: Left comminuted intra-articular distal radius fracture that was displaced Postoperative diagnosis: Same Anesthesia: [General} Procedure: ORIF of the distal radius Implants: Synthes distal radius variable angle locking plate Complications: None Indication for procedure: 63-year-old female patient status post ground-level fall injuring her left wrist we discussed risks benefits and alternatives of conservative versus surgical intervention. Including the risk of bleeding infection nerve artery tissue damage need for further surgery continued pain postoperative stiffness need for postoperative physical therapy and the expected postoperative course. Procedure: The patient was met in the preoperative holding area the operative extremity was identified by both patient and physician and marked. Patient was met by anesthesia she was brought back to the operating room on a wheeled cart and transferred to the operating table in the supine position anesthesia was started. A well-padded tourniquet was placed on the upper arm of the operative extremity. She was prepped and draped in the usual sterile fashion. A Time out was called to ensure the proper patient procedure and extremity were being contemplated. A 15 blade scalpel was used to make a linear incision over the FCR tendon this was carried down through the skin and subcutaneous tissue. Electrocautery was used to maintain hemostasis. Brittaney retractors were used. The FCR tendon sheath was incised and the FCR tendon was mobilized radially. A deep blade scalpel was used to perforate the fascia of the deep FCR tendon sheath and Littler scissors were used to dissect proximally and distally. Blunt dissection was performed a alok was placed on the radial and ulnar side of the radius. The pronator quadratus was partially torn from the injury and was released off the radial border of the radius with electrocautery and was elevated with a nava elevator. The Hohmann retractors were then placed deep to this muscle. The fracture site was visualized and was freed of hematoma and clot debris with the use of small rongeur and Estelline. The fracture was then reduced with the use of a Estelline and ulnar deviation and wrist flexion. This was checked under fluoroscopy to ensure that an adequate reduction could be performed. A plate was then positioned over the fracture site and temporarily fixed to the bone with K wires. A cortical screw was then placed in the shaft and sequential locking screws were placed distally this was checked on both AP and lateral projections to ensure screw placement was not penetrating the joint and was in the proper location. Bone drill sleeve was used for the radial styloid screw and a variable angle fashion. The remainder of the cortical screws were placed in the shaft. And the fracture and hardware were visualized in both AP and lateral projections in good alignment and fracture positioning. The wound was thoroughly irrigated. Tourniquet was let down to assess for bleeding there was no significant bleeding . pronator quadratus was not repairable. A subcutaneous stitch with 3-0 Vicryl was performed followed by 4-0 nylon vertical mattress stitches. Followed by Xeroform 4 x 4 ABD web roll stockinette more web roll volar paster splint and an Donte wrap. There was no complications intraoperatively and the patient was brought back to the PACU in stable condition where she received an axillary block. All counts were correct. Surgical Findings: Comminuted int (more content not included)... Normal [facility] Wrist 2 Viewson 09-23-2024 [facility] [address] [place], [place] [address] Wrist 2 Views MR#: [id number] Acct: [id number] Name: ROSANNE BANERJEE Rep #: [id number] : 1960 F 63 From: Debra Vasquez MD PCP: Dr. Augustine Pace MD Status: [facility] Study: Wrist 2 Views Date of Exam: 09/23/24 Exam# [id number] Ordering Dr: Brian Garcia DO EXAM: DX wrist two views, OR fluoro CLINICAL HISTORY: ORIF left wrist TECHNIQUE: Fluoroscopy during ORIF left wrist with 4 spot images FINDINGS: Fluoroscopy time 28.7 seconds Cumulative dose 0.60 mGy Spot images with placement of a distal radius dorsal plate and screws appears anatomic. Please see operative report for further detail. RAD/Wrist 2 Views IMPRESSION: Fluoroscopy as above. Reading Location: [id number] CC: Dr. Augustine Pace MD; Dr. Brian Garcia DO Psychology Professor: Signed Normal [facility] Electrocardiogram reportOrde red By: Jad Teixeira on 09-20-2024 EKG study [facility] Cardiovascular Services [address] [place] [address] 12 Lead EKG 09/19/24 1344 MR#: [id number] Acct: [id number] Name: ROSANNE BANERJEE Rep #:[id number] : 1960 63 From: Jad jones MD Attending Dr: Dr. Brian Garcia DO Status: PRE SDC Ordering Dr: Ramsey Melgoza MD Date: 09/19/24 Location: [facility] Sex: F C Admitted: Test Reason : PREOP Blood Pressure : */* mmHG Vent. Rate : 53 BPM Atrial Rate : 53 BPM P-R Int : 192 ms QRS Dur : 100 ms QT Int : 424 ms P-R-T Axes : 68 61 66 degrees QTcB Int : 397 ms Sinus bradycardia Otherwise normal ECG Confirmed by Jad Teixeira ([id number]), editorial cartoonist LAW KRAUSE ([id number]) on 09/20/2024 12:20:35 PM Referred By: Brian Garcia Confirmed By: Jad Teixeira 09/20/24 1220 Date _ Jad Teixeira MD CC: Dr. Ramsey Melgoza MD; Dr. Augustine Pace MD; Dr. Brian Garcia DO ~ Signed [facility] Other Phone: 12 Lead EKGon 09-19-2024 12 Lead EKG [facility] Cardiovascular Services [address] [place] [address] 12 Lead EKG 09/19/24 1344 MR#: [id number] Acct: [id number] Name: ROSANNE BANERJEE Rep #: [id number] : 1960 63 From: Jad Teixeira MD Attending Dr: Dr. Brian Garcia DO Status: [place] [facility] Ordering Dr: Ramsey Melgoza MD Date: 09/19/24 Location: [facility] Sex: F C Admitted: Test Reason : PREOP Blood Pressure : */* mmHG Vent. Rate : 53 BPM Atrial Rate : 53 BPM P-R Int : 192 ms QRS Dur : 100 ms QT Int : 424 ms P-R-T Axes : 68 61 66 degrees QTcB Int : 397 ms Sinus bradycardia Otherwise normal ECG Confirmed by Jad Teixeira ([id number]), editorial cartoonist LAW KRAUSE ([id number]) on 09/20/2024 12:20:35 PM Referred By: Brian Garcia Confirmed By: Jad Teixeira 09/20/24 1220 Date Jad Teixeira MD CC: Dr. Ramsey eMlgoza MD; Dr. Augustine Pace MD; Dr. Brian Garcia DO Signed Normal [facility] Anion gap in Serum or Plasma Ordered By: Ramsey Melgoza on 09-19-2024 Anion gap [Moles/Vol] 13 mmol/L 09-26 [facility] BUN/creatinine ratioOrdered By: Ramsey Melgoza on 09-19-2024 Urea nitrogen/Creatinine [Mass ratio] 44.8 mg/mg High 03-03 [facility] Basic Metabolic Profile (BMP )on 09-19-2024 BUN/CRE 44.8 RATIO High 03-03 [facility] Comment on above: Performed By: #### L 500.2500, L551.7521 ####[facility] [address] [place], [place], [id number] Calcium [Mass/Vol] 9.6 mg/dL Normal 7.6-11.0 [facility] Comment on above: Performed By: #### L 500.2500, L5.1520 ####[facility] [address] [place], [address] Chloride [Moles/Vol] 96 mmol/L Low 98-108 [facility] Comment on above: Performed By: #### L 500.2500, L501.9520 ####[facility] [address] [place], [address] CO2 [Moles/Vol] 23.6 mmol/L Normal 21.0-32.0 [facility] Comment on above: Performed By: #### L 500.2500, L501.9520 ####[facility] [address] [place], [address] Creatinine [Mass/Vol] 0.65 mg/dL Low 0.70-1.20 [facility] Comment on above: Performed By: #### L 500.2500, L501.9520 ####[facility] [address] [place], [address] GAP 13 Normal 5-15 [facility] Comment on above: Performed By: #### L 500.2500, L501.9520 ####[facility] [address] [place], [address] GFR/1.73 sq M.predicted among non-blacks MDRD (S/P/Bld) [Vol rate/Area] 98 mL/min/{1.73_m2} Normal >60 [facility] Comment on above: Result Comment: mL/m in/1.73m2 CKD-EPI Creatinine Equation (2020) Performed By: #### L 500.2500, L501.9520 ####[facility] [address] [place], [address] Glucose [Mass/Vol] 96 mg/dL Normal 70-99 [facility] Comment on above: Performed By: #### L 500.2500, L501.9520 ####[facility] [address] [place], [address] Potassium [Moles/Vol] 4.1 mmol/L Normal 3.3-5.1 [facility] Comment on above: Performed By: #### L 500.2500, L501.9520 ####[facility] [address] [place], [address] Sodium [Moles/Vol] 132 mmol/L Low 133-145 [facility] Comment on above: Performed By: #### L 500.2500, L501.9520 ####[facility] [address] [place], [address] Urea nitrogen [Mass/Vol] 29 mg/dL High 4-19 [facility] Comment on above: Performed By: #### L 500.2500, L501.9520 ####[facility] [address] [place], [address] Carbon dioxide, total [Moles /volume] in Central venous bloodOrdered By: Ramsey Melgoza on 09-19-2024 CO2 [Moles/Vol] 23.6 mmol/L 21.0-32.0 [facility] Chloride assayOrdered By: Bebe on 09-19-2024 Chloride [Moles/Vol] 96 mmol/L Low 98-108 [facility] Glomerular filtration rate ( GFR) estimation/1.73 sq m using serum, plasma, or whole bOrdered By: Ramsey Melgoza on 09-19-2024 GFR/1.73 sq M.predicted among non-blacks MDRD (S/P/Bld) [Vol rate/Area] 98 mL/min/{1.73_m2} >60 [facility] Comment on above: mL/min/1.73m2 CKD-EP I Creatinine Equation (2020) /Marie 09-19-2024 /PAULO [facility] Medical Records Department [address] [place] [address] PAT - Anesthesia 09/19/24 1652 MR#: [id number] Acct: [id number] Name: ROSANNE BANERJEE Rep #: [id number] : 1960 63 From: Ramsey Melgoza MD PCP: Dr. Augustine Pace MD Status:PRE SDC Y Race: C Location: [facility] Pre-Assessment Diagnosis/Proposed Procedure Planned Operative Procedure(s): ORIF LEFT WRIST Anesthesia History Anesthesia History - short piece handler: Anesthesia History - short piece handler Hx Hospitalization No 09/19/24 12:25 Any Problems With Anesthesia No 09/19/24 12:25 Cholinesterase deficiency No 09/19/24 12:25 You/Your Family Experience No 09/19/24 12:25 fever (hyperthermia) with Relationship Recent Exposure to Contagious No 09/13/24 14:27 Disease Does patient have nerve No 09/19/24 12:25 stimulator Patient instructed to have device shut off --Does patient have Pacemaker or ICD? When Was Last Pacemaker Check QUESTION #4 FULL TEXT: You/Your Family Experience fever (hyperthermia) with Anesthesia Last Oral Intake Last Oral intake: Last Oral Intake NPO since Meds taken in AM with sips of water? Meds patient instructed to take am of surgery PONV PONV - short piece handler: PONV - short piece handler Female Yes 09/19/24 12:25 HX of Motion Sickness Yes 09/19/24 12:25 HX of N/V After Surgery No 09/19/24 12:25 Non-Smoker Yes 09/19/24 12:25 Duration of Surgery greater Yes 09/19/24 12:25 than 60 minutes Number of Risk Factors 4 09/19/24 12:25 PONV Score Severe Risk 09/19/24 12:25 Height Weight Height Weight: Anesthesia: Height Weight Height 5 ft 2 in 09/18/24 08:32 Respiratory Assessment Respiratory Assessment - short piece handler: Respiratory Tract Infection Hx - short piece handler Hx Respiratory Tract Infection No 09/19/24 12:25 STOP Sleep Apnea STOP Sleep Apnea - short piece handler: STOP Sleep Apnea - short piece handler Hx Hypertension Yes: CONTROLLED WITH MED 09/19/24 12:25 Hx Sleep Apnea No 09/19/24 12:25 CPAP No 09/13/24 14:27 BIPAP No 09/13/24 14:27 Do you snore loudly (louder No 09/19/24 12:25 than talking or can be heard Do you often feel tired/ No 09/19/24 12:25 fatigued/ sleepy during daytime? Has anyone observed you stop No 09/19/24 12:25 breathing during sleep? STOP Results Negative 09/19/24 12:25 QUESTION #5 FULL TEXT : Do you snore loudly (louder than talking or can be heard through closed doors)? 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 Specify any problems Hx of Preganancy in last 3 N/A 09/19/24 12:25 Months Nurse Filling Out Transfusion NBUCHER 09/19/24 12:25 Questions: Date: 09/19/24 09/19/24 12:25 Time: 12:27 09/19/24 12:25 Patient unable to answer at this time (ie. confused, unrespo /Reproduction History /Reproductive History - short piece handler: /Reproductive Hx- short piece handler Hx Now No 09/19/24 12:25 Gestational Age (in weeks): EDC: Hx Hx Para Hx Section SAB No 09/19/24 12:25 [facility] Medical History (Updated 09/19/24 @ 12:33 by Gloria Borges) Wears contact lenses Wears glasses Thyroid disease History of edema Non-smoker History of stress test Heart murmur History of echocardiogram Cardiology follow-up encounter Essential (primary) hypertension Hyperlipidemia Postmenopausal bleeding Home Medications ???Medication ???Instructions ???Recorded ???Last Taken ???Type levothyroxine 125 mcg tablet 100 mcg PO DAILY 03/18/15 09/13/24 History liothyronine 25 mcg tablet 25 mcg PO DAILY 03/18/15 09/13/24 History cholecalciferol (vitamin D3) 50 2,000 unit PO DAILY 11/30/18 05/02 /25 History mcg (2,000 unit) capsule (Vitamin D3) melatonin 3 mg capsule 3 mg PO HS PRN sleep 03/27/23 Unkn own History omega-3 fatty acids 1,000 mg 1,000 mg PO DAILY 03/27/23 5 History capsule metoprolol succinate 25 mg 25 mg PO DAILY #90 tabs 05/27/24 0 09/13/24 Rx (more content not included)... Normal [facility] Potassium measurement (mass/ volume)Ordered By: Ramsey Melgoza on 09-19-2024 Potassium (Unsp spec) [Mass/Vol] 4.1 mmol/L 3.3-5.1 [facility] Serum creatinine measurement (mass/volume)Ordered By: Ramsey Melgoza on 09-19-2024 Creatinine [Mass/Vol] 0.65 mg/dL Low 0.70-1.20 [facility] Serum glucose measurement (m ass/volume)Ordered By: Ramsey Melgoza on 09-19-2024 Glucose [Mass/Vol] 96 mg/dL 70-99 [facility] Serum or plasma calcium jena urement (mass/volume)Ordered By: Ramsey Melgoza on 09-19-2024 Calcium [Mass/Vol] 9.6 mg/dL 7.6-11.0 [facility] Serum or plasma urea nitroge n measurement (mass/volume)Ordered By: Ramsey Melgoza on 09-19-2024 Urea nitrogen [Mass/Vol] 29 mg/dL High 4-19 [facility] Sodium levelOrdered By: Jeffery Melgoza on 09-19-2024 Sodium [Moles/Vol] 132 mmol/L Low 133-145 [facility] TSH DL <= 0.005 mIU/L QnOrde red By: Ramsey Melgoza on 09-19-2024 TSH Qn 0.214 uIU/mL Low 0.300-4.200 [facility] Thyroid Stim Hormone (TSH)on 09-19-2024 TSH 0.214 uIU/mL Low 0.300-4.200 [facility] Comment on above: Performed By: #### L 500.2500, L501.9520 ####[facility] [address] [place], [address] Orthopedic Visit Reporton Orthopedic Visit Report [facility] [address] [place] [address] OFFICE VISIT Date of Service: 09/18/24 MR#: [id number] Acct: [id number] Name: ROSANNE BANERJEE Rep #: [id number] : 1960 Provider: Dr. Brian Yin so, DO Age/Sex: 63/F Location: [facility] Status: Signed Intake Vital Signs 09/13/24 13:06 09/13/24 14:27 09/18/24 08:32 Height 5 ft 2 in 5 ft 2 in 5 ft 2 in Weight: 213 lb BMI 38.9 Intake Visit Reasons: LEFT WRIST Chief Complaint: Left wrist Accompanied by: Self Is patient in pain?: No Allergies ramipril (From Altace) Allergy (Verified 09/18/24 08:36) Swelling ARB-Angiotensin Receptor Antagonist Adverse Reaction (Severe, Verified 09/18/24 08:36) Angioedema Medications ???Medication ???Instructions ???Recorded ???Confirmed ???Type levothyroxine 125 mcg tablet 125 mcg PO DAILY 03/18/15 09/18/24 History liothyronine 25 mcg tablet 25 mcg PO DAILY 03/18/15 09/18/24 History cholecalciferol (vitamin D3) 50 2,000 unit PO DAILY 04/13/1809/18 History mcg (2,000 unit) capsule (Vitamin D3) fexofenadine 180 mg tablet 180 mg PO DAILY PRN allergy 09/18/24 History symptoms fluticasone propionate 50 2 spray intranasal DAILY PRN 03/2709/18/24 History mcg/actuation nasal allergy symptoms spray,suspension melatonin 3 mg capsule 3 mg PO HS PRN sleep 03/27/2312/06 History omega-3 fatty acids 1,000 mg 1,000 mg PO DAILY 03/27/23 5 History capsule metoprolol succinate 25 mg 25 mg PO DAILY #90 tabs 05/27/24 0 09/18/24 Rx tablet,extended release 24 hr amlodipine 10 mg tablet 10 mg PO QHS 09/13/24 09/18/24 His tory hydrochlorothiazide 12.5 mg tablet 12.5 mg PO DAILY 09/13/24 History turmeric PO DAILY 09/13/24 09/18/24 History acetaminophen 325 mg tablet 325 mg PO ONCE PRN 09/18/24 History (Tylenol) Have you fallen in the past year?: Yes PFSH Medical History Essential (primary) hypertension Hyperlipidemia Postmenopausal bleeding Surgical History S/P hysterectomy Family History Mother Hypertension CVA (cerebral vascular accident) Diabetes Father Hypertension Cancer Grandmother CAD (coronary artery disease) Social History Smoking Status: Never smoker alcohol intake: current substance use type: does not use HPI LEFT WRIST Details: This documentation accurately reflects the service provided and the decisions made by me, Dr. Brian Garcia, DO 09/18/24 0754. Part of today???s visit was documented by Mercy Carlisle MA, acting as scribe. ROSANNE BANERJEE is a 63 year old F with a medical history significant for but not limited to aortic stenosis, hypertension, hyperlipidemia, bradycardia, hypothyroidism, here today for ER follow-up 09/13/2024 left wrist fracture status post ground-level fall walking her dog. She did have a hematoma block and a closed reduction and splinting from the emergency room which she felt was very tight and causing her numbness into her mostly in index and middle finger but significant pain on her thumb. She states they did redo it once but it was not much better since. She is right-hand dominant, patient denies any smoking or drug use. Denies any previous injury to this hand/arm. Ortho Exam General General: Yes no acute distress and Yes well groomed Neurologic: Yes alert and Yes oriented x3 Psychologic: Yes reasonable and appropriate Right Wrist/Hand Skin/Wound: Yes Swelling and Yes Ecchymosis Left Wrist/Hand Date of injury: 09/13/24 Skin/Wound: Yes CDI, Yes Swelling, Yes Ecchymosis, Yes capillary refill normal and No erythema WRIST: She does have some volar ecchymosis there was a Band-Aid on the dorsum of her wrist from the hematoma block that was given in the emergency room. Her compartments are soft her swelling is controlled she does have numbness in the fingers however this is much improved after splint was removed but did have some residual in the index finger. She has intact sensation light touch and can wiggle her digits she is not tender over the elbow or shoulder she is exquisitely tender over the fracture site. Supplemental Info 09/13/2024 x-ray Left wrist: left wrist pre and postreduction x-rays intra-articular impacted dorsally angulated distal radius fracture prereduction postreduction anatomic is improved however there is some residual tilt to the articular surface dorsal tilt to articular surface 11 degrees. Coding Level of Care Code Off vis,est,level 4 Diagnos (more content not included)... Normal [facility] Emergency Department Summary on 09-13-2024 Emergency Department Summary [facility] Medical Records Department [address] [place] [address] Emergency Department Summary 09/13/24 MR#: [id number] Acct: [id number] Name: ROSANNE BANERJEE Rep #: [id number] : 1960 63 From: Ronn Mcgregor MD PCP: Dr. Rose Mary Ocasio MD Status:REG ER Location: ED HPI History of Present Illness HPI Narrative: 63-year-old female vyths-zlfi-moykxuhx. Was walking her dog slipped on wet and muddy sidewalk and when she fell she landed awkwardly on her left wrist. This occurred less than an hour ago. She also landed on her knees. But denies any significant knee or hip pain. She did not hit her head. No LOC. No blood thinners. Prior to the fall she was feeling fine. She has never had any surgery to her left upper extremity or wrist. Chief Complaint: Upper Extremity Injury Occured/Mechanism Mechanism/Context: Yes injury and Yes blunt trauma Onset/Context/Timing Onset: Today Context: Sudden Onset Timing: Continuous Quality of Pain: Sharp Current Severity: Moderate Maximum Severity: Moderate Associated Symptoms Associated Symptoms: Negative for Parasthesia, Weakness or Loss of Funtion Narrative Narrative: 67-year-old female walking her dog slipped on a wet muddy sidewalk injuring her left wrist. No LOC. No head injury. Prior similar symptoms: No Recent Illness/Hospitalization: No [facility] Medical History Essential (primary) hypertension Hyperlipidemia Postmenopausal bleeding Home Medications ???Medication ???Instructions ???Recorded ???Last Taken ???Type levothyroxine 125 mcg tablet 125 mcg PO DAILY 03/18/15 10/05/17 08:00 History liothyronine 25 mcg tablet 25 mcg PO DAILY 03/18/15 10/05/17 08:00 History cholecalciferol (vitamin D3) 50 2,000 unit PO DAILY 04/13/18 Unkno wn History mcg (2,000 unit) capsule (Vitamin D3) ibuprofen 600 mg tablet 600 mg PO TID PRN Pain #30 tabs Unknown Rx Held on 04/19/21. Instructions: Order Changed fexofenadine 180 mg tablet 180 mg PO DAILY PRN 03/27/23 Unkno wn History fluticasone propionate 50 2 spray intranasal 03/27/23 Unknow n History mcg/actuation nasal spray,suspension magnesium chloride 64 mg 64 mg PO DAILY 03/27/23 Unknown Hi story (magnesium chloride) tablet,delayed release melatonin 3 mg capsule 3 mg PO HS PRN 03/27/23 Unknown Hi story omega-3 fatty acids 1,000 mg 1,000 mg PO DAILY 03/27/23 Unknown History capsule amlodipine 5 mg tablet 5 mg PO DAILY #90 tabs 07/12/23 Un known Rx hydrochlorothiazide 25 mg tablet 12.5 mg PO QDAY 04/08/24 Unknown H istory metoprolol succinate 25 mg 25 mg PO DAILY #90 tabs 05/27/24 U nknown Rx tablet,extended release 24 hr hydrocodone-acetaminophen 5-325mg 1 tab PO Q4H PRN PRN Pain 5 days 09/13/24 Unknown Rx 5mg-325mg #14 TABLETS Allergy/AdvReac Type Severity Reaction Status Date / Time ramipril (From Altace) Allergy Swelling Verified 09/13/24 13:08 ARB-Angiotensin Receptor AdvReac Severe Angioedema Verified 09/13/24 13:08 Antagonist Family History Mother Hypertension CVA (cerebral vascular accident) Diabetes Father Hypertension Cancer Grandmother CAD (coronary artery disease) Surgical History S/P hysterectomy Social History Smoking Status: Never smoker alcohol intake: current substance use type: does not use ROS ROS ED ROS Narrative Denies recent illness. Constitutional Constitutional ED: Denies chills or fever(s) Eyes Eyes: Denies blurry vision ENT ENT ED: Denies ear pain Cardiovascular Cardiovascular: Denies chest pain Respiratory/Chest Respiratory/Chest: Denies cough or dyspnea Gastrointestinal Gastrointestinal: Denies abdominal pain Genitourinary Genitourinary ED: Denies dysuria Musculoskeletal Musculoskeletal: Denies back pain Integumentary Reports Abrasions; Denies abscess Neurologic Neurologic: Denies headache(s) Psychiatric Psychiatric: Denies anxiety or depression Endocrine Endocrinology: Denies cold intolerance Hematologic/Lymphatic Hematologic/Lymphatic: Denies easy bleeding, easy bruising or lymphadenopathy Allergic/Immunologic Allergic/Immunologic ED: Denies mouth swelling, tongue swelling or urticaria EXAM Physical Exam Narrative Exam Narrative: 63-year-old female sitting upright in bed. Vital signs are stable afebrile. Accompanied by her friend. H EENT exam pupils round reactive light. No trauma to her face or scalp. Nontender. Neck nontender. Trachea midline. C-spine nontender. Back and spine nontender. Lungs clear to auscultation bilaterally. Heart regular rhythm no (more content not included)... Normal [facility] Wrist min 3 Viewson 09-14-19 Wrist min 3 Views [facility] [address] [place] [address] Wrist min 3 Views MR#: [id number] Acct: [id number] Name: ROSANNE BANERJEE Rep #: [id number] : 1960 F 63 From: Ailin [place], MD PCP: Dr. Rose Mary Ocasio MD Status: REG ER Study: Wrist min 3 Views Date of Exam: 09/13/24 Exam# [id number] Ordering Dr: Ronn Mcgregor MD PROCEDURE: WRIST MIN 3 VIEWS 09/13/2024 REASON FOR EXAM: POST REDUCTION TECHNIQUE: 3 views of the left wrist COMPARISON: Left wrist radiograph earlier same day. FINDINGS: Bones: Improved anatomic alignment of the left distal radial fracture status post reduction and casting. Joints: Articular extension of the fracture into the radioulnar joint. Soft tissues: Soft tissue swelling. RAD/Wrist min 3 Views IMPRESSION: Postreduction imaging as described. Reading Location: [facility] CC: Dr. Rose Mary Ocasio MD; Dr. Ronn Mcgregor MD Psychology Professor: Signed Normal [facility] Wrist min 3 Views [facility] Imaging Services [address] [place] [address] Wrist min 3 Views MR#: [id number] Acct: [id number] Name: ROSANNE BANERJEE Rep #: [id number] : 1960 F 63 From: Ailin [place] nd, MD PCP: Dr. Rose Mary Ocasio MD Status: REG ER Study: Wrist min 3 Views Date of Exam: 09/13/24 Exam# [id number] Ordering Dr: Ronn Mcgregor MD PROCEDURE: WRIST MIN 3 VIEWS 09/13/2024 REASON FOR EXAM: FALL TECHNIQUE: 3 views of the left wrist COMPARISON: None. FINDINGS: Bones: Acute, mildly complex extra-articular fracture of the left distal radius with dorsal angulation. No ulnar fracture. Joints: The fracture extends into the radioulnar joint. Soft tissues: Soft tissue swelling. RAD/Wrist min 3 Views IMPRESSION: Acute fracture of the left distal radius (Colles fracture). Subsequent wrist imaging demonstrates left wrist casting. Reading Location: [facility] CC: Dr. Rose Mary Ocasio MD; Dr. Ronn Mcgregor MD Psychology Professor: Signed Normal [facility] AST(SGOT)on 05-10-2024 AST [Catalytic activity/Vol] 21 U/L Normal 15-37 [facility] Comment on above: Order Comment: Order Date: 02/28/24Order Info: 666-05 - BMPOrder Date: 02/26/24Order Info: [id number] - LIPIDOrder Info: 1919-12 - ASTOrder Info: 1741-10 - ALTOrder Info: 3025-06 - S7Urmfp Info: 3 - TSH Performed By: #### L 501.9520, L501.9985, L500.2500, L500.4100, L501.9310, L501.4405, L501.4100 ####[facility] [address] [place], [place], [id number] Alanine Aminotransferas (SGP T)on 05-10-2024 ALT [Catalytic activity/Vol] 20 U/L Normal 13-56 [facility] Comment on above: Order Comment: Order Date: 02/28/24Order Info: 666-05 - BMPOrder Date: 02/26/24Order Info: - LIPIDOrder Info: 1919-12 - ASTOrder Info: 1741-10 - ALTOrder Info: 3025-06 - O7Iacrg Info: 3 - TSH Performed By: #### L 501.9520, L501.9985, L500.2500, L500.4100, L501.9310, L501.4405, L501.4100 ####[facility] [address] [place], [place], [phone] Basic Metabolic Profile (BMP )on 05-10-2024 BUN/CRE 30.4 RATIO High 10-20 [facility] Comment on above: Order Comment: Order Date: 02/28/24 Order Info: 06- - BMP Order Date: 02/26/24 Order Info: [id number] - LIPID Order Info: 1919-12 - AST Order Info: 1741-10 - ALT Order Info: 2 - T4 Order Info: 3 - TSH Performed By: #### L 501.9520, L501.9985, L500.2500, L500.4100, L501.9310, L501.4405, L501.4100 #### [facility] [address] [place], [address] CA,Total 9.1 mg/dL Normal 8.5-10.1 [facility] Comment on above: Order Comment: Order Date: 02/28/24 Order Info: 0667-1 - BMP Order Date: 02/26/24 Order Info: [id number] - LIPID Order Info: 1919-12 - AST Order Info: 1741-10 ALT Order Info: 3026-2 - T4 Order Info: 301-3 - TSH Performed By: #### L 501.9520, L501.9985, L500.2500, L500.4100, L501.9310, L501.4405, L501.4100 #### [facility] [address] [place], [place], [phone] Chloride [Moles/Vol] 102 mmol/L Normal 98-107 [facility] Comment on above: Order Comment: Order Date: 02/28/24 Order Info: 06 - BMP Order Date: 02/26/24 Order Info: 73799-3 - LIPID Order Info: 1919-12 - AST Order Info: 1741-10 ALT Order Info: 3026-2 - T4 Order Info: 301-3 - TSH Performed By: #### L 501.9520, L501.9985, L500.2500, L500.4100, L501.9310, L501.4405, L501.4100 #### [facility] [address] [place], [address] CO2 [Moles/Vol] 30.0 mmol/L Normal 21.0-32.0 [facility] Comment on above: Order Comment: Order Date: 02/28/24 Order Info: 0667 - BMP Order Date: 02/26/24 Order Info: 01881-0 - LIPID Order Info: 1919-12 - AST Order Info: 1741-10 ALT Order Info: 3026-2 - T4 Order Info: 3016-3 - TSH Performed By: #### L 501.9520, L501.9985, L500.2500, L500.4100, L501.9310, L501.4405, L501.4100 #### [facility] [address] [place], [place], [address] [phone] Creatinine [Mass/Vol] 0.63 mg/dL Normal 0.55-1.02 [facility] Comment on above: Order Comment: Order Date: 02/28/24 Order Info: 666-05 - BMP Order Date: 02/26/24 Order Info: - LIPID Order Info: 1919-12 AST Order Info: 1741-10 ALT Order Info: 3025-06 - T4 Order Info: 3015-07 - TSH Result Comment: The validity of the calculated GFR GFRAA in patients over 70 years has not been determined. Clinical correlation is essential. Performed By: #### L 501.9520, L501.9985, L500.2500, L500.4100, L501.9310, L501.4405, L501.4100 #### [facility] [address] [place], [place], [address] [phone] EST GFR - AA 123 mL/min Normal >60 [facility] Comment on above: Order Comment: Order Date: 02/28/24 Order Info: 666-05 - BMP Order Date: 02/26/24 Order Info: [id number] - LIPID Order Info: 1919-12 AST Order Info: 1741-10 ALT Order Info: 3025-06 - T4 Order Info: 3 - TSH Result Comment: Afri can [place] GFR Calc Performed By: #### L 501.9520, L501.9985, L500.2500, L500.4100, L501.9310, L501.4405, L501.4100 #### [facility] [address] [place], [address] GAP 2 Low 5-15 [facility] Comment on above: Order Comment: Order Date: 02/28/24 Order Info: 666-05 - BMP Order Date: 02/26/24 Order Info: [id number] - LIPID Order Info: 1919-12 AST Order Info: 1741-10 Order Info: 2 - T4 Order Info: 3 - TSH Performed By: #### L 501.9520, L501.9985, L500.2500, L500.4100, L501.9310, L501.4405, L501.4100 #### [facility] [address] [place], [address] GFR/1.73 sq M.predicted among non-blacks MDRD (S/P/Bld) [Vol rate/Area] 101 mL/min/{1.73_m2} Normal >60 [facility] Comment on above: Order Comment: Order Date: 02/28/24 Order Info: 666-05 - BMP Order Date: 02/26/24 Order Info: [id number] - LIPID Order Info: 1919-12 AST Order Info: 1741-10 Order Info: 3025-06 - T4 Order Info: 3 - TSH Result Comment: Non- GFR Calc Performed By: #### L 501.9520, L501.9985, L500.2500, L500.4100, L501.9310, L501.4405, L501.4100 #### [facility] [address] [place], [address] Glucose [Mass/Vol] 107 mg/dL High 74-106 [facility] Comment on above: Order Comment: Order Date: 02/28/24 Order Info: 666-05 - BMP Order Date: 02/26/24 Order Info: [id number] - LIPID Order Info: 1919-12 AST Order Info: 1741-10 ALT Order Info: 2 - T4 Order Info: 3 - TSH Result Comment: Fast ing Glucose result from 100 to 125 mg/dL suggests IMPAIRED HOMEOSTASIS per A.D.A. criteria. Performed By: #### L 501.9520, L501.9985, L500.2500, L500.4100, L501.9310, L501.4405, L501.4100 #### [facility] [address] [place], [place], [phone] Potassium [Moles/Vol] 3.9 mmol/L Normal 3.5-5.1 [facility] Comment on above: Order Comment: Order Date: 02/28/24 Order Info: 0667- - BMP Order Date: 02/26/24 Order Info: [id number] - LIPID Order Info: 1919-12 - AST Order Info: 1741-10 ALT Order Info: 3025-2 - T4 Order Info: 3015-3 - TSH Performed By: #### L 501.9520, L501.9985, L500.2500, L500.4100, L501.9310, L501.4405, L501.4100 #### [facility] [address] [place], [place], [phone] Sodium [Moles/Vol] 134 mmol/L Low 136-145 [facility] Comment on above: Order Comment: Order Date: 02/28/24 Order Info: 666-05 - BMP Order Date: 02/26/24 Order Info: [id number] - LIPID Order Info: 1919-12 AST Order Info: 1741-10 Order Info: 3025-2 - T4 Order Info: 3015-3 - TSH Performed By: #### L 501.9520, L501.9985, L500.2500, L500.4100, L501.9310, L501.4405, L501.4100 #### [facility] [address] [place], [place], [address] [phone] Urea nitrogen [Mass/Vol] 19 mg/dL High 7-18 [facility] Comment on above: Order Comment: Order Date: 02/28/24 Order Info: 06 - BMP Order Date: 02/26/24 Order Info: 72067-2 - LIPID Order Info: 1919-12 - AST Order Info: 1741-10 ALT Order Info: 3026-2 - T4 Order Info: 3016-3 - TSH Performed By: #### L 501.9520, L501.9985, L500.2500, L500.4100, L501.9310, L501.4405, L501.4100 #### [facility] [address] [place], [place], [phone] Hemoglobin A1con 05-10-2024 HbA1c (Bld) [Mass fraction] 5.3 % Normal 3.8-5.6 [facility] Comment on above: Order Comment: Order Date: 02/26/24Order Info: 4548-4 - A1C Result Comment: Norm al < 5.7 % Prediabetic 5.7 - 6.4 % Diabetic >or= 6.5 % Please note range changes. Performed By: #### L 501.9520, L501.9985, L500.2500, L500.4100, L501.9310, L501.4405, L501.4100 ####[facility] [address] [place], [place], [phone] Lipid Profileon 05-10-2024 Cholesterol [Mass/Vol] 188 mg/dL Normal 200 [facility] Comment on above: Order Comment: Order Date: 02/28/24 Order Info: 0667-1 - BMP Order Date: 02/26/24 Order Info: 96428-5 - LIPID Order Info: 1919-12 Order Info: 1741-10 - Order Info: 3025-06 - T4 Order Info: 3016-3 - TSH Result Comment: <200 mg/dL Desirable 200-240 mg/dL Borderline >240 mg/dL High Risk Performed By: #### L 501.9520, L501.9985, L500.2500, L500.4100, L501.9310, L501.4405, L501.4100 #### [facility] [address] [place], [place], [phone] Cholesterol in HDL [Mass/Vol] 65 mg/dL Normal [facility] Comment on above: Order Comment: Order Date: 02/28/24 Order Info: 0667-1 - BMP Order Date: 02/26/24 Order Info: [id number] - LIPID Order Info: 1919-12 - AST Order Info: 1741-10 - ALT Order Info: 3026-2 - T4 Order Info: 3 - TSH Result Comment: The drugs N-Acetylcysteine and Metamizole may falsely depress this assay. Reference Range HDL <40 mg/dL Low HDL Cholesterol HDL >or= 60 mg/dL High HDL Cholesterol Performed By: #### L 501.9520, L501.9985, L500.2500, L500.4100, L501.9310, L501.4405, L501.4100 #### [facility] [address] [place], [address] Cholesterol in LDL [Mass/Vol] 110 mg/dL Normal 0-130 [facility] Comment on above: Order Comment: Order Date: 02/28/24 Order Info: 666-05 - BMP Order Date: 02/26/24 Order Info: 62362-5 - LIPID Order Info: 1919-12 AST Order Info: 1741-10 ALT Order Info: 2 - T4 Order Info: 3015-07 - TSH Performed By: #### L 501.9520, L501.9985, L500.2500, L500.4100, L501.9310, L501.4405, L501.4100 #### [facility] [address] [place], [address] Cholesterol in VLDL [Mass/Vol] 13 mg/dL Normal 5-40 [facility] Comment on above: Order Comment: Order Date: 02/28/24 Order Info: 06 - BMP Order Date: 02/26/24 Order Info: [id number] - LIPID Order Info: 1919-12 AST Order Info: 1741-10 ALT Order Info: 2 - T4 Order Info: 3 - TSH Performed By: #### L 501.9520, L501.9985, L500.2500, L500.4100, L501.9310, L501.4405, L501.4100 #### [facility] [address] [place], [address] Triglyceride [Mass/Vol] 64 mg/dL Normal [facility] Comment on above: Order Comment: Order Date: 02/28/24 Order Info: 0667-1 - BMP Order Date: 02/26/24 Order Info: 20941-6 - LIPID Order Info: 1919-12 - AST Order Info: 17406-20 - ALT Order Info: 3026-2 - T4 Order Info: 3016-3 - TSH Result Comment: The drugs N-Acetylcysteine and Metamizole may falsely depress this assay. Serum Triglycerides Reference Interval Normal <150 mg/dL Borderline high 150 - 199 mg/dL High 200 - 499 mg/dL Very High > or = 500 mg/dL Performed By: #### L 501.9520, L501.9985, L500.2500, L500.4100, L501.9310, L501.4405, L501.4100 #### [facility] [address] [place], [address] Protein+Creatinine Ratio,Uri neon 05-10-2024 PROT:CRE RATIO 187 mg/g CRE Normal 0-200 [facility] Comment on above: Performed By: #### L 501.0900 #### [facility] [address] [place], [address] PROTEIN,UR.RAN. < 6.0 Normal <11.9 [facility] Comment on above: Performed By: #### L 501.0900 #### [facility] [address] [place], [address] UR CREAT 27.30 mg/dL Normal NO RANGE EST. [facility] Comment on above: Performed By: #### L 501.0900 #### [facility] [address] [place], [address] T4 Total, Thyroxinon 024 T4 [Mass/Vol] 8.5 ug/dL Normal 4.8-13.9 [facility] [facility] Comment on above: Order Comment: Order Date: 02/28/24Order Info: 0667-1 - BMPOrder Date: 02/26/24Order Info: 06805-1 - LIPIDOrder Info: 1919-12 - ASTOrder Info: 1741-10 - ALTOrder Info: 3026-2 - U7Apkif Info: 3016-3 - TSH Performed By: #### L 501.9520, L501.9985, L500.2500, L500.4100, L501.9310, L501.4405, L501.4100 ####[facility] [address] [place], [place], [address] Thyroid Stim Hormone (TSH)on 05-10-2024 TSH 0.145 uIU/mL Low 0.358-3.740 [facility] Comment on above: Order Comment: Order Date: 02/28/24Order Info: 0667-1 - BMPOrder Date: 02/26/24Order Info: [id number] - LIPIDOrder Info: 1919-12 - ASTOrder Info: 1741-10 - ALTOrder Info: 2 - H5Ynain Info: 3016-3 - TSH Performed By: #### L 501.9520, L501.9985, L500.2500, L500.4100, L501.9310, L501.4405, L501.4100 ####[facility] [address] [place], [place], [address] Cardiology Visit Reporton Cardiology Visit Report [facility] [address] [place], [place] [address] OFFICE VISIT Date of Service: 04/08/24 MR#: [id number] Acct: [id number] Name: ROSANNE BANERJEE Rep #: [id number] : 1960 Provider: ZAINAB downs Age/Sex: 63/F Location: [facility] Status: Signed HPI HPI History of Present Illness Details: This is a 63-year old lady who presents to the office today for a cardiovascular follow up visit. She has no previous cardiac history but a history of hypertension who says that was told she had a heart murmur. As part of her workup she underwent an echocardiographic evaluation which demonstrated preserved left ventricular systolic size and function estimated ejection fraction of 55% and mean gradient of 11 mmHg across the aortic valve with a calcified valve which was not very well-visualized and pulmonary systolic pressure of 30 admitted meters of mercury. From a cardiac standpoint, the patient is doing well. She denies any palpitations, chest pain, pressure or heaviness. She denies SOB, Orthopnea, and PND. She does not have bleeding issues; no blood in urine, stool or nosebleeds. She denies any decrease in energy level, myalgias, or claudication. She does not have edema, or sudden weight gain. She denies dizziness, lightheadedness, syncopal or near syncopal episodes, and headaches. Intake Vital Signs 05/03/23 08:50 04/08/24 08:58 Height 5 ft 2 in 5 ft 2 in Weight: 218 lb BMI 39.9 BP 128/72 H Blood Pressure Location Lt brachial Position Sitting Respiration 18 Pulse 50 L Pulse Source Monitor Pulse Oximetry (%) 99 Intake Visit Reasons: 1 Y FU [employer] Required: No Is patient in pain?: No Allergies ramipril (From Altace) Allergy (Verified 04/08/24 09:10) Swelling ARB-Angiotensin Receptor Antagonist Adverse Reaction (Severe, Verified 04/08/24 09:10) Angioedema Medications ???Medication ???Instructions ???Recorded ???Confirmed ???Type levothyroxine 125 mcg tablet 125 mcg PO DAILY 03/18/15 04/08/24 History liothyronine 25 mcg tablet 25 mcg PO DAILY 03/18/15 04/08/24 History cholecalciferol (vitamin D3) 50 2,000 unit PO DAILY 04/13/18 04/08/24 History mcg (2,000 unit) capsule (Vitamin D3) ibuprofen 600 mg tablet 600 mg PO TID PRN Pain #30 tabs 04/20/18 04/08/24 Rx fexofenadine 180 mg tablet 180 mg PO DAILY PRN 03/27/23 04/08/24 History fluticasone propionate 50 2 spray intranasal 03/27/23 04/08/24 History mcg/actuation nasal spray,suspension magnesium chloride 64 mg 64 mg PO DAILY 03/27/23 04/08/24 History (magnesium chloride) tablet,delayed release melatonin 3 mg capsule 3 mg PO HS PRN 03/27/23 04/08/24 History omega-3 fatty acids 1,000 mg 1,000 mg PO DAILY 03/27/23 04/08/24 History capsule amlodipine 5 mg tablet 5 mg PO DAILY #90 tabs 07/12/23 04/08/24 Rx hydrochlorothiazide 25 mg tablet 12.5 mg PO QDAY 04/08/24 04/08/24 History metoprolol succinate 25 mg 25 mg PO DAILY #90 tabs 04/08/24 04/08/24 Rx tablet,extended release 24 hr Have you fallen in the past year?: No PFSH Medical History Essential (primary) hypertension Hyperlipidemia Postmenopausal bleeding Surgical History S/P hysterectomy Family History Mother Hypertension CVA (cerebral vascular accident) Diabetes Father Hypertension Cancer Grandmother CAD (coronary artery disease) Social History Smoking Status: Never smoker alcohol intake: current substance use type: does not use ROS Const Const: Negative for fatigue, weakness, fever(s), headache(s), chills, frequent falls, weight gain or weight loss Eyes Eyes: Negative for blind spots, loss of peripheral vision, transient loss of vision, blurry vision, change in vision, double vision, floaters or tunnel vision ENT ENT: Negative for headache(s), dizziness, Nosebleed/epistaxis, balance problems or neck pain Cardio Chest Pain: No Palpitations: No Edema: None Muscle aches with walking: None Resp Respiratory: Negative for SOB with activity, SOB at rest or SOB orthopnea SOB lying down GI GI: Negative nausea, vomiting, heartburn, bloating, vomiting blood/hematemesis, bright, red blood in stools or black,tarry stools Musc Musc: Negative for muscle aches/ myalgia, muscle weakness, joint pain or balance problems Neuro Neuro: Negative for dizziness, lightheadedness, near syncope, syncope, orthostatic symptoms, frequent falls, headache(s), weakness, blurry vision or double vision Evan Hematologic/Lymphatic: Negative for easy bleeding or easy bruising Endo Endo (more content not included)... Normal [facility] Echo Completeon 04-03-2024 Echo Complete [facility] [address] [place] [address] Echo Complete 04/03/24 0900 MR#: [id number] Acct: [id number] Name: ROSANNE BANERJEE Rep #: [id number] : 1960 63 From: Yahir Tesfaye MD Attending Dr: Dr. Yahir Tesfaye MD Status: IAN AVILA Ordering Dr: Yahir Tesfaye MD Date: 04/03/24 Location: [facility] Sex: F C Admitted: Reason For Study: Murmur Procedure This was a 2D Doppler, Color Flow transthoracic echocardiogram. Exam performed in department. Left Ventricle Normal LV size. Left ventricular systolic function is normal. The left ventricular ejection fraction is 60 %. No regional wall motion abnormalities noted. Right Ventricle Normal RV size. Normal systolic function. Atria Normal left atrium. Normal right atrium. Mitral Valve Normal mitral valve. Mild (1+) eccentric mitral valve insufficiency. Tricuspid Valve Normal tricuspid valve. Mild (1+) tricuspid valve insufficiency. Pulmonary artery systolic pressure is 38 mmHg. Aortic Valve Trisinus/trileaflet aortic valve. Mild focal aortic valve calcification. Peak aortic valve gradient 22 mmHg. Mean aortic valve gradient 9 mmHg. Mild aortic stenosis. Pulmonic Valve Normal pulmonic valve. Great Vessels Normal aortic root. The pulmonary artery is normal size. Normal inferior vena cava. Pericardium/Pleural No pericardial effusion. MMode/2D Measurements Calculations LVIDd: 4.8 cm IVSd: 0.81 cm LVOT diam: 1.8 cm LVIDs: 3.0 cm LVPWd: 0.76 cm LVOT area: 2.7 cm2 RVDd: 3.5 cm FS: 38.2 % Ao root diam: 3.3 cm LAV(MOD-bp): 73.8 ml LVAd ap4: 30.2 cm2 LAV(MOD-bp) Indexed: 33.7 ml/m2 LVLd ap4: 8.0 cm LAV(MOD-sp2): 69.9 ml EDV(MOD-sp4): 92.3 ml LAV(MOD-sp4): 76.6 ml EDV(sp4-el): 96.4 ml LVAs ap4: 15.8 cm2 LVLs ap4: 6.3 cm ESV(MOD-sp4): 33.4 ml ESV(sp4-el): 33.5 ml EF(MOD-sp4): 63.8 % EF(sp4-el): 65.2 % SV(MOD-sp4): 59.0 ml SV(sp4-el): 62.9 ml Ao sinus diam: 2.7 cm SI(MOD-sp4): 26.9 ml/m2 Ao ST Junction: 1.8 cm LA A4 area: 24.0 cm2 LA dimension(2D): 4.2 cm TAPSE: 2.4 cm RA A4 area: 16.8 cm2 Time Measurements MV dec time: 0.21 sec Doppler Measurements Calculations MV E max yady: 113.6 cm/sec Lat Peak E' Yady: 11.1 cm/sec Med Peak E' Yady: 8.7 cm/sec MV A max yady: 63.1 cm/sec E/E' lat: 10.3 E/E' med: 13.1 MV E/A: 1.8 MV V2 max: 139.8 cm/sec MV P1/2t max yady: 139.8 cm/sec Ao V2 max: 233.2 cm/sec MV max P.8 mmHg MV P1/2t: 82.1 msec Ao max P.8 mmHg MV V2 mean: 50.6 cm/sec MV dec slope: 498.6 cm/sec2 Ao V2 mean: 140.8 cm/sec MV mean P.5 mmHg Ao mean P.5 mmHg MV V2 VTI: 51.1 cm MVA(P1/2t): 2.7 cm2 Ao V2 VTI: 58.7 cm MVA(VTI): 2.4 cm2 AV (velocity ratio): 0.80 JEFFREY(I,D): 2.1 cm2 JEFFREY(V,D): 1.9 cm2 LV V1 max: 168.1 cm/sec SV(LVOT): 124.9 ml PA V2 max: 111.2 cm/sec LV V1 max P.3 mmHg PA V2 mean: 75.7 cm/sec LV V1 mean P.2 mmHg LV V1 mean: 117.5 cm/sec LV V1 VTI: 46.7 cm TR max yady: 291.9 cm/sec TR max P.1 mmHg ECHO/Echo Complete Interpretation Summary Normal LV size. Left ventricular systolic function is normal. The left ventricular ejection fraction is 60 %. Mild (1+) eccentric mitral valve insufficiency. Pulmonary artery systolic pressure is 38 mmHg. Mean aortic valve gradient 9 mmHg. Mild aortic stenosis. Ordering Physician: Yahir Tesfaye Referring Physician: Rose Mary Ocasio M.D. Performed By: Migue Shelton RCS 04/03/24 1542 Date Yahir Tesfaye MD CC: Dr. Rose Mary Ocasio MD; Dr. Yahir Tesfaye MD Date Dictated: 04/03/24 0900 Date Transcribed: 04/03/24 154 Psychology Professor: Signed Normal [facility] AST(SGOT)on 02-26-2024 AST [Catalytic activity/Vol] 24 U/L Normal 15-37 [facility] Comment on above: Order Comment: Order Date: 03/09/23Order Info: 0667-1 - BMPOrder Info: 72475-2 - LIPIDOrder Info: 1920-8 - ASTOrder Info: 1742-6 - ALTOrder Info: 3026-2 - Q5Tggqb Info: 3016-3 - TSH Performed By: #### L 500.4100, L501.9520, L501.4100, L501.9985, L501.4405, L501.9310, L500.2500 ####[facility] [address] [place], [place], [id number] Alanine Aminotransferas (SGP T)on 02-26-2024 ALT [Catalytic activity/Vol] 22 U/L Normal 13-56 [facility] Comment on above: Order Comment: Order Date: 03/09/23Order Info: 666- - BMPOrder Info: [id number] - LIPIDOrder Info: 1919-12 - ASTOrder Info: 1741-10 - ALTOrder Info: 3025-2 - D1Ziwdg Info: 3015-3 - TSH Performed By: #### L 500.4100, L501.9520, L501.4100, L501.9985, L501.4405, L501.9310, L500.2500 ####[facility] [address] [place], [place], [phone] Basic Metabolic Profile (BMP )on 02-26-2024 BUN/CRE 29.9 RATIO High 10-20 [facility] Comment on above: Order Comment: Order Date: 03/09/23Order Info: 666-05 - BMPOrder Info: [id number] - LIPIDOrder Info: 1919-12 - ASTOrder Info: 1741-10 - ALTOrder Info: 3025-2 - O7Kwidk Info: 3015-3 - TSH Performed By: #### L 500.4100, L501.9520, L501.4100, L501.9985, L501.4405, L501.9310, L500.2500 ####[facility] [address] [place], [place], [id number] CA,Total 9.8 mg/dL Normal 8.5-10.1 [facility] Comment on above: Order Comment: Order Date: 03/09/23Order Info: 666-05 - BMPOrder Info: - LIPIDOrder Info: 1919-12 - ASTOrder Info: 1741-10 - ALTOrder Info: 2 - Y2Xsmle Info: 3 - TSH Performed By: #### L 500.4100, L501.9520, L501.4100, L501.9985, L501.4405, L501.9310, L500.2500 ####[facility] [address] [place], [address] Chloride [Moles/Vol] 98 mmol/L Normal 98-107 [facility] Comment on above: Order Comment: Order Date: 03/09/23Order Info: 666-05 - BMPOrder Info: [id number] - LIPIDOrder Info: 1919-12 - ASTOrder Info: 1741-10rder Info: 2 - P9Ttwon Info: 3 - TSH Performed By: #### L 500.4100, L501.9520, L501.4100, L501.9985, L501.4405, L501.9310, L500.2500 ####[facility] [address] [place], [address] CO2 [Moles/Vol] 27.0 mmol/L Normal 21.0-32.0 [facility] Comment on above: Order Comment: Order Date: 03/09/23Order Info: 666-05 - BMPOrder Info: 10340-9 - LIPIDOrder Info: 1919-12 - ASTOrder Info: 1741-10rder Info: 2 - P9Omzxm Info: 3 - TSH Performed By: #### L 500.4100, L501.9520, L501.4100, L501.9985, L501.4405, L501.9310, L500.2500 ####[facility] [address] [place], [address] Creatinine [Mass/Vol] 0.64 mg/dL Normal 0.55-1.02 [facility] Comment on above: Order Comment: Order Date: 03/09/23Order Info: 666-05 - BMPOrder Info: [id number] - LIPIDOrder Info: 1919-12 - ASTOrder Info: 1741-10 - ALTOrder Info: 3025-06 - Q0Xjeoc Info: 3015-07 - TSH Result Comment: The validity of the calculated GFR GFRAA in patients over 70 years has not been determined. Clinical correlation is essential. Performed By: #### L 500.4100, L501.9520, L501.4100, L501.9985, L501.4405, L501.9310, L500.2500 ####[facility] [address] [place], [address] EST GFR - AA 121 mL/min Normal >60 [facility] Comment on above: Order Comment: Order Date: 03/09/23Order Info: 666-05 - BMPOrder Info: - LIPIDOrder Info: 1919-12 - ASTOrder Info: 1741-10 - ALTOrder Info: 3025-06 - V9Kisnq Info: 3015-07 - TSH Result Comment: Afri can [place] GFR Calc Performed By: #### L 500.4100, L501.9520, L501.4100, L501.9985, L501.4405, L501.9310, L500.2500 ####[facility] [address] [place], [address] GAP 9 Normal 5-15 [facility] Comment on above: Order Comment: Order Date: 03/09/23Order Info: 666-05 - BMPOrder Info: - LIPIDOrder Info: 1919-12 - ASTOrder Info: 1741-10 - ALTOrder Info: 3025-06 - J8Lruex Info: 3 - TSH Performed By: #### L 500.4100, L501.9520, L501.4100, L501.9985, L501.4405, L501.9310, L500.2500 ####[facility] [address] [place], [address] GFR/1.73 sq M.predicted among non-blacks MDRD (S/P/Bld) [Vol rate/Area] 100 mL/min/{1.73_m2} Normal >60 [facility] Comment on above: Order Comment: Order Date: 03/09/23Order Info: 666-05 - BMPOrder Info: - LIPIDOrder Info: 1919-12 - ASTOrder Info: 1741-10 - ALTOrder Info: 3025-06 - Z0Pdrby Info: 3015-3 - TSH Result Comment: Non- GFR Calc Performed By: #### L 500.4100, L501.9520, L501.4100, L501.9985, L501.4405, L501.9310, L500.2500 ####[facility] [address] [place], [address] Glucose [Mass/Vol] 91 mg/dL Normal 74-106 [facility] Comment on above: Order Comment: Order Date: 03/09/23Order Info: 666-05 - BMPOrder Info: - LIPIDOrder Info: 1919-12 - ASTOrder Info: 1741-10 - rder Info: 3025-06 - N4Kvtdz Info: 3015-3 - TSH Performed By: #### L 500.4100, L501.9520, L501.4100, L501.9985, L501.4405, L501.9310, L500.2500 ####[facility] [address] [place], [address] Potassium [Moles/Vol] 3.4 mmol/L Low 3.5-5.1 [facility] Comment on above: Order Comment: Order Date: 03/09/23Order Info: 666-05 - BMPOrder Info: - LIPIDOrder Info: 1919-12 - ASTOrder Info: 1741-10 - ALTOrder Info: 3025-06 - I3Uvccm Info: 3015-3 - TSH Performed By: #### L 500.4100, L501.9520, L501.4100, L501.9985, L501.4405, L501.9310, L500.2500 ####[facility] [address] [place], [address] Sodium [Moles/Vol] 133 mmol/L Low 136-145 [facility] Comment on above: Order Comment: Order Date: 03/09/23Order Info: 666-05 - BMPOrder Info: - LIPIDOrder Info: 1919-12 - ASTOrder Info: 1741-10 - ALTOrder Info: 3025-2 - P4Wqyrc Info: 3016-3 - TSH Performed By: #### L 500.4100, L501.9520, L501.4100, L501.9985, L501.4405, L501.9310, L500.2500 ####[facility] [address] [place], [address] Urea nitrogen [Mass/Vol] 19 mg/dL High 7-18 [facility] Comment on above: Order Comment: Order Date: 03/09/23Order Info: 666-05 - BMPOrder Info: - LIPIDOrder Info: 1919-12 - ASTOrder Info: 1741-10 - rder Info: 6-2 - K2Zaeyq Info: 3016-3 - TSH Performed By: #### L 500.4100, L501.9520, L501.4100, L501.9985, L501.4405, L501.9310, L500.2500 ####[facility] [address] [place], [address] Hemoglobin A1con 02-26-2024 HbA1c (Bld) [Mass fraction] 5.4 % Normal 3.8-5.6 [facility] Comment on above: Order Comment: Order Date: 03/09/23Order Info: 4548-4 - A1C Result Comment: Norm al < 5.7 % Prediabetic 5.7 - 6.4 % Diabetic >or= 6.5 % Please note range changes. Performed By: #### L 500.4100, L501.9520, L501.4100, L501.9985, L501.4405, L501.9310, L500.2500 ####[facility] [address] [place], [place], [address] Lipid Profileon 02-26-2024 Cholesterol [Mass/Vol] 196 mg/dL Normal 200 [facility] Comment on above: Order Comment: Order Date: 03/09/23Order Info: 666-05 - BMPOrder Info: 92676-3 - LIPIDOrder Info: 1919-12 - ASTOrder Info: 1741-10 - ALTOrder Info: 3025-06 - U1Qmuju Info: 3 - TSH Result Comment: <200 mg/dL Desirable 200-240 mg/dL Borderline >240 mg/dL High Risk Performed By: #### L 500.4100, L501.9520, L501.4100, L501.9985, L501.4405, L501.9310, L500.2500 ####[facility] [address] [place], [address] Cholesterol in HDL [Mass/Vol] 64 mg/dL Normal [facility] Comment on above: Order Comment: Order Date: 03/09/23Order Info: 666-05 - BMPOrder Info: [id number] - LIPIDOrder Info: 1919-12 - ASTOrder Info: 1741-10 - ALTOrder Info: 3025-06 - O6Fmcba Info: 3 - TSH Result Comment: The drugs N-Acetylcysteine and Metamizole may falsely depress this assay. Reference Range HDL <40 mg/dL Low HDL Cholesterol HDL >or= 60 mg/dL High HDL Cholesterol Performed By: #### L 500.4100, L501.9520, L501.4100, L501.9985, L501.4405, L501.9310, L500.2500 ####[facility] [address] [place], [address] Cholesterol in LDL [Mass/Vol] 121 mg/dL Normal 0-130 [facility] Comment on above: Order Comment: Order Date: 03/09/23Order Info: 666-05 - BMPOrder Info: [id number] - LIPIDOrder Info: 1919-12 - ASTOrder Info: 1741-10 - ALTOrder Info: 3025-06 - L0Fugzm Info: 3016-3 - TSH Performed By: #### L 500.4100, L501.9520, L501.4100, L501.9985, L501.4405, L501.9310, L500.2500 ####[facility] [address] [place], [place], [phone] Cholesterol in VLDL [Mass/Vol] 11 mg/dL Normal 5-40 [facility] Comment on above: Order Comment: Order Date: 03/09/23Order Info: 666-05 - BMPOrder Info: 25134-0 - LIPIDOrder Info: 1919-12 - ASTOrder Info: 1741-10 - ALTOrder Info: 2 - S4Sgccl Info: 3015-07 - TSH Performed By: #### L 500.4100, L501.9520, L501.4100, L501.9985, L501.4405, L501.9310, L500.2500 ####[facility] [address] [place], [address] Triglyceride [Mass/Vol] 54 mg/dL Normal [facility] Comment on above: Order Comment: Order Date: 03/09/23Order Info: 666-05 - BMPOrder Info: [id number] - LIPIDOrder Info: 1919-12 - ASTOrder Info: 1741-10 - ALTOrder Info: 3025-2 - A7Dakil Info: 3015-3 - TSH Result Comment: The drugs N-Acetylcysteine and Metamizole may falsely depress this assay. Serum Triglycerides Reference Interval Normal <150 mg/dL Borderline high 150 - 199 mg/dL High 200 - 499 mg/dL Very High > or = 500 mg/dL Performed By: #### L 500.4100, L501.9520, L501.4100, L501.9985, L501.4405, L501.9310, L500.2500 ####[facility] [address] [place], [place], [phone]) T4 Total, Thyroxinon 10-14-2 024 T4 [Mass/Vol] 11.9 ug/dL Normal 4.8-13.9 [facility] Comment on above: Order Comment: Order Date: 03/09/23Order Info: 666-05 - BMPOrder Info: - LIPIDOrder Info: 1919-12 - ASTOrder Info: 1741-10 - ALTOrder Info: 6-2 - B7Qjudf Info: 3016-3 - TSH Performed By: #### L 500.4100, L501.9520, L501.4100, L501.9985, L501.4405, L501.9310, L500.2500 ####[facility] [address] [facility] [place], [address] Thyroid Stim Hormone (TSH)on 02-26-2024 TSH 0.074 uIU/mL Low 0.358-3.740 [facility] Comment on above: Order Comment: Order Date: 03/09/23Order Info: 666-05 - BMPOrder Info: - LIPIDOrder Info: 1919-12 - ASTOrder Info: 1741-10 - ALTOrder Info: 6-2 - W2Lrtqm Info: 3016-3 - TSH Performed By: #### L 500.4100, L501.9520, L501.4100, L501.9985, L501.4405, L501.9310, L500.2500 ####[facility] [address] [facility] [place], [place], [phone] SCRN MAMM (CAD)W/ADITI BILATo n 02-23-2024 SCRN MAMM (CAD)W/ADITI BILAT [facility] Imaging Services [address] [place], [place] [address] SCRN MAMM (CAD)W/ADITI BILAT MR#: [id number] Acct: [id number] Name: ROSANNE BANERJEE Rep #: [id number] : 1960 F 63 From: Brian hernandez MD PCP: Dr. Rose Mary Ocasio MD Status: REG CLI Study: SCRN MAMM (CAD)W/ADITI BILAT Date of Exam: 02/12 06/07 Exam# [id number] Ordering Dr: Rose Mary Ocasio MD :[id number] MAMMOGRAPHY - BILATERAL SCREENING REASON FOR EXAM: Female, 63 years old. Routine annual screening examination. PERTINENT HISTORY: Non-contributory. Prior bilateral breast reduction surgery. TECHNIQUE: Digital bilateral breast aditi (3D mammographic acquisition) in the CC and MLO projections. 2-D mediolateral oblique (MLO) and craniocaudad (CC) views of both breasts were obtained. CAD: Full Field Digital Mammography with Computer Added Detection was performed. COMPARISON: Comparison is made with prior study dated February 21, 2023 and February 15, 2022. FINDINGS: Breast Composition: The breasts are almost entirely fatty. There are no dominant masses or suspicious calcifications. Stable postoperative linear scarring seen in both breasts on the mediolateral oblique view. Stable small benign-appearing bilateral axillary lymph nodes. No other significant abnormalities are identified. There has been no significant change since the prior study. BI/SCRN MAMM (CAD)W/ADITI BILAT IMPRESSION: Stable bilateral screening mammogram. Yearly follow-up mammogram recommended. (A) ASSESSMENT CATEGORY: BIRADS Category 2: Benign. A letter regarding these results will be sent to the patient by the facility within 30 days. Approximately 10% of breast cancers are not detected by mammography. A normal mammogram should not delay biopsy of a clinically suspicious abnormality. [id number] Electronically Signed: Brian Negrete MD at 14:06 EDT , CC: Dr. Rose Mary Ocasio MD Psychology Professor: Signed Normal [facility] Basophil percentageOrdered B y: Rose Mary Ocasio on 12-26-2022 Chloride [Moles/Vol] 102 mmol/L 98-107 [facility] Cholesterol [Mass/Vol] 192 mg/dL <200 [facility] Comment on above: <200 mg/dL Desirable 200-240 mg/dL Borderline >240 mg/dL High Risk Glucose [Mass/Vol] 97 mg/dL 74-106 [facility] Potassium [Moles/Vol] 4.0 mmol/L 3.5-5.1 [facility] Sodium [Moles/Vol] 136 mmol/L 136-145 [facility] Triglyceride [Mass/Vol] 59 mg/dL <199 [facility] Comment on above: The drugs N-Acetylcy steine and Metamizole may falsely depress this assay.Serum Triglycerides Reference Interval Normal <150 mg/dL Borderline high 150 - 199 mg/dL High 200 - 499 mg/dL Very High > or = 500 mg/dL Laboratory - Chemistry and C hemistry - challengeOrdered By: Rose Mary Ocasio on 12-26-2022 ALT [Catalytic activity/Vol] 24 U/L 13-56 [facility] CO2 [Moles/Vol] 29.0 mmol/L 21.0-32.0 [facility] T4 [Mass/Vol] 10.9 ug/dL 4.8-13.9 [facility] Urea nitrogen/Creatinine [Mass ratio] 23.5 mg/mg 10-20 [facility] No Panel InformationOrdered By: Rose Mary Ocasio on 12-26-2022 Estimated GFR (MDRD) Amer 104 mL/min >60 [facility] Comment on above: GFR Calc Estimated GFR (MDRD) Non-Af Amer 86 mL/min >60 [facility] Comment on above: Non- GFR Calc Thyroid Stimulating Hormone (TSH) 0.32 uIU/mL 0.358-3.74 [facility] Serum or plasma calcium jena urement (mass/volume)Ordered By: Rose Mary Ocasio on 12-26-2022 Calcium [Mass/Vol] 9.1 mg/dL 8.5-10.1 [facility] Serum or plasma cholesterol in HDL measurement (mass/volume)Ordered By: Rose Mary Ocasio on 12-26-2022 Cholesterol in HDL [Mass/Vol] 73 mg/dL >40 [facility] Comment on above: The drugs N-Acetylcy steine and Metamizole may falsely depress this assay. Reference Range HDL <40 mg/dL Low HDL Cholesterol HDL >or= 60 mg/dL High HDL Cholesterol Serum or plasma cholesterol in VLDL measurement (mass/volume)Ordered By: Rose Mary Ocasio on 12-26-2022 Cholesterol in VLDL [Mass/Vol] 12 mg/dL 5-40 [facility] Serum or plasma creatinine m easurement (mass/volume)Ordered By: Rose Mary Ocasio on 12-26-2022 Creatinine [Mass/Vol] 0.72 mg/dL 0.55-1.02 [facility] Comment on above: The validity of the calculated GFR & GFRAA in patients over 70 years has not been determined. Clinical correlation is essential. Serum or plasma low density lipoprotein (LDL) cholesterol measurement (mass/volume)Ordered By: Rose Mary Ocasio on 12-26-2022 Cholesterol in LDL [Mass/Vol] 107 mg/dL 0-130 [facility] Serum or plasma urea nitroge n measurement (mass/volume)Ordered By: Rose Mary Ocasio on 12-26-2022 Urea nitrogen [Mass/Vol] 17 mg/dL 7-18 [facility] Thin prep Papanicolaou smear with manual screeningOrdered By: Rose Mary Ocasio on 12-26-2022 Thin prep Papanicolaou smear with manual screening 19 U/L 15-37 [facility] Thin prep Papanicolaou smear with manual screening 5 5-15 [facility] Whole blood hemoglobin A1c/t otal hemoglobin ratio (mass fraction)Ordered By: Rose Mary Ocasio on 12-26-2022 HbA1c (Bld) [Mass fraction] 5.5 % 3.8-5.6 [facility] Comment on above: Normal < 5.7 % Predi abetic 5.7 - 6.4 % Diabetic >or= 6.5 % Please note range changes. CNOVon 12-23-2022 CNOV Office Visit (ORMDNA ) ROSANNE BANERJEE ([id number]) 1960 F Date Time Provider Department 12/23/22 11:00 AM GABY GOODE During your visit today, we recorded the following information about you: Gaby Goode PA-C 12/23/2022 2:33 PM Signed Ms. Rosanne Banerjee presents today for right knee supartz injection #3/3. Today she rates her pain a 6 on a scale of 0 to 10. Large Joint Arthro/Inj: R knee joint Informed Consent Consent Obtained: Verbal Byron Protocol A moment to CARE was completed. SIGN IN Personnel directly involved with the procedure wore the appropriate PPE. Special Equipment: N/A Patient/Surrogate Stated/Verified: Patient name, Date of , Relevant allergies and Intended procedure TIME OUT Intended patient and procedure match the source document(s). Consent documented and matches the intended procedure. Relevant labs, photos, and/or imaging studies have been reviewed. Correct side/site marked and visible. Medications required for procedure verified. No fire risk assessment and interventions applicable. No implant(s) inserted. 12/23/2022 2:32 PM The procedure site was prepped in the usual sterile fashion. Site: R knee joint Medications: 2.5 mL sodium hyaluronate 10/ mg/mL Outcome: Tolerated well, no immediate complications Post-injection instructions were reviewed with the patient and the patient voiced understanding of these instructions. SIGN OUT No instruments, equipment or retained foreign bodies applicable. Gaby Goode PA-C Referring Provider: DESTINY RANDALL [[id number]] Allergies As of Date: 12/23/2022 Noted Allergy Reaction ALTACE (RAMIPRIL) 06/16/2014 7 - Swelling Date Reviewed: 12/23/2022 Reviewed by: Gaby Goode PA-C - Fully Assessed Reason for Visit: Established Patient [175] Injections [199] Primary Visit Diagnosis:Primary osteoarthritis of right knee [M17.11] Order(s):Large Joint Arthro/Inj: R knee joint [GRS618] Order #: [id number] [] sodium hyaluronate 2.5 mL injection (SUPARTZ FX)Disp: Rfl: Prescriptions as of 12/23/2022 - meloxicam (MOBIC) 7.5 mg tablet take 1 tablet by mouth once daily - zolpidem (AMBIEN) 5 mg tablet Take 1 tablet by mouth at bedtime as needed for up to 7 days. - ondansetron (ZOFRAN) 4 mg tablet Take 1 tablet by mouth every 8 hours as needed for nausea/vomiting. - oxyCODONE-acetaminophen (PERCOCET) 5-325 mg tablet Take 1 tablet by mouth every 6 hours as needed for pain. - Cholecalciferol, Vitamin D3, 50 mcg (2,000 unit) cap Take 1 capsule by mouth once daily. - omega 6-cxk-bxv-fish oil 1,000 mg (250 mg-750 mg)/5 mL liqd Take 1 capsule by mouth once daily. - melatonin 3 mg capsules Take 3 mg by mouth daily at bedtime. As needed - fexofenadine HCl (SUSAN ORAL) Take by mouth. - amLODIPine (NORVASC) 2.5 mg tablet Take 2.5 mg by mouth once daily. - metoprolol succinate XL, long acting, (TOPROL XL) 50 mg 24 hr tablet Take 100 mg by mouth once daily. - liothyronine (CYTOMEL) 25 mcg tablet Take 25 mcg by mouth once daily. - levothyroxine (SYNTHROID) 125 mcg tablet Take 125 mcg by mouth daily before breakfast. - hydrochlorothiazide (HYDRODIURIL, ESIDRIX) 25 mg tablet Take 25 mg by mouth once daily. 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 Follow-up and Disposition History for Encounter Date Provider Department Center 12/23/2022 [id number] QIANA*RUDY [facility] Encounter Status:Closed by GABY GOODE on 12/23/22 [facility] CNOVon 12-16-2022 CNOV Office Visit (RUDY ) ROSANNE BANERJEE ([id number]) 1960 F Date Time Provider Department 12/16/22 11:00 AM GABY GOODE During your visit today, we recorded the following information about you: Gaby Goode PA-C 12/16/2022 11:59 AM Signed Ms. Rosanne Banerjee presents today for right knee supartz injection #2/3. Today she rates her pain a 0 on a scale of 0 to 10 at rest. Large Joint Arthro/Inj: R knee joint Informed Consent Consent Obtained: Verbal Byron Protocol A moment to CARE was completed. SIGN IN Personnel directly involved with the procedure wore the appropriate PPE. Special Equipment: N/A Patient/Surrogate Stated/Verified: Patient name, Date of , Relevant allergies and Intended procedure TIME OUT Intended patient and procedure match the source document(s). Consent documented and matches the intended procedure. Relevant labs, photos, and/or imaging studies have been reviewed. Correct side/site marked and visible. Medications required for procedure verified. No fire risk assessment and interventions applicable. No implant(s) inserted. 12/16/2022 11:58 AM The procedure site was prepped in the usual sterile fashion. Site: R knee joint Medications: 2.5 mL sodium hyaluronate 10/ mg/mL Outcome: Tolerated well, no immediate complications Post-injection instructions were reviewed with the patient and the patient voiced understanding of these instructions. SIGN OUT No instruments, equipment or retained foreign bodies applicable. Gaby Goode PA-C Referring Provider: DESTINY RANDALL [[id number]] Allergies As of Date: 12/16/2022 Noted Allergy Reaction ALTACE (RAMIPRIL) 06/16/2014 7 - Swelling Date Reviewed: 12/16/2022 Reviewed by: Gaby Goode PA-C - Fully Assessed Reason for Visit: Established Patient [175] Injections [199] Knee Pain [132] Primary Visit Diagnosis:Primary osteoarthritis of right knee [M17.11] Order(s):Large Joint Arthro/Inj: R knee joint [[id number]] Order #: [id number] [] sodium hyaluronate 2.5 mL injection (SUPARTZ FX)Disp: Rfl: Prescriptions as of 12/16/2022 - meloxicam (MOBIC) 7.5 mg tablet take 1 tablet by mouth once daily - zolpidem (AMBIEN) 5 mg tablet Take 1 tablet by mouth at bedtime as needed for up to 7 days. - ondansetron (ZOFRAN) 4 mg tablet Take 1 tablet by mouth every 8 hours as needed for nausea/vomiting. - oxyCODONE-acetaminophen (PERCOCET) 5-325 mg tablet Take 1 tablet by mouth every 6 hours as needed for pain. - Cholecalciferol, Vitamin D3, 50 mcg (2,000 unit) cap Take 1 capsule by mouth once daily. - omega 8-rzr-fhs-fish oil 1,000 mg (250 mg-750 mg)/5 mL liqd Take 1 capsule by mouth once daily. - melatonin 3 mg capsules Take 3 mg by mouth daily at bedtime. As needed - fexofenadine HCl (SUSAN ORAL) Take by mouth. - amLODIPine (NORVASC) 2.5 mg tablet Take 2.5 mg by mouth once daily. - metoprolol succinate XL, long acting, (TOPROL XL) 50 mg 24 hr tablet Take 100 mg by mouth once daily. - liothyronine (CYTOMEL) 25 mcg tablet Take 25 mcg by mouth once daily. - levothyroxine (SYNTHROID) 125 mcg tablet Take 125 mcg by mouth daily before breakfast. - hydrochlorothiazide (HYDRODIURIL, ESIDRIX) 25 mg tablet Take 25 mg by mouth once daily. 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 Follow-up and Disposition History for Encounter Date Provider Department Center 12/16/2022 [id number] GOODE*RUDY [facility] Encounter Status:Closed by GABY GOODE on 12/16/22 [facility] CNOVon 12-09-2022 CNOV Office Visit (RUDY ) ROSANNE BANERJEE ([id number]) 1960 F Date Time Provider Department 12/09/22 9:45 AM DESTINY RANDALL During your visit today, we recorded the following information about you: Destiny Randall DO 12/11/2022 8:48 AM Addendum Large Joint Arthro/Inj: R knee joint Informed Consent Consent Obtained: Verbal Byron Protocol A moment to CARE was completed. SIGN IN Personnel directly involved with the procedure wore the appropriate PPE. Special Equipment: Yes Patient/Surrogate Stated/Verified: Date of , Relevant allergies, Intended procedure and Patient name TIME OUT Intended patient and procedure match the source document(s). Consent documented and matches the intended procedure. Relevant labs, photos, and/or imaging studies have been reviewed. Correct side/site marked and visible. Medications required for procedure verified. Fire risk assessed and interventions discussed. No implant(s) inserted. 12/09/2022 8:46 AM The procedure site was prepped in the usual sterile fashion. Site: R knee joint Medications: 2.5 mL sodium hyaluronate 10/ mg/mL Outcome: Tolerated well, no immediate complications Post-injection instructions were reviewed with the patient and the patient voiced understanding of these instructions. SIGN OUT All instruments, equipment, possible retained foreign bodies accounted for. Follow Up Visit Chief Complaint Rosanne Banerjee is a 62 year old female who presents today for follow up office visit. Patient presents with: Right Knee - Follow Up, Knee Pain History of Present Illness PAIN EVALUATION 12/02/2022 1526 Pain Level: 6 Pain Location: Knee-Right Description: Dull Duration Amount of Time: 4 Duration Units: Months Frequency: Intermittent Intervention/Comfort measure: Medication;Cold;Positioning; Therapeutic techniques-CPRP HPI: Rosanne Banerjee is a 62 year old female for a follow up visit right knee. She is here to receive Supartz injection 1/. She has increasing pain with walking and going from sit to stand. Pain history is noted as above. Denies calf pain, numbness, tingling, fever, chills or other constitutional symptoms. Is there any overall improvement in your condition? No Any new injury, since being seen last: No REVIEW OF SYMPTOMS: Patient did not have, and does not currently have, any weight loss, malaise, fever, chills, headache, chest pain, chest pressure, palpitations, cough, shortness of breath, orthopnea, paroxsymal nocturnal dyspnea, nausea, vomiting, diarrhea, constipation, melena, hematochezia, urinary difficulties, prolonged bleeding, easily bruising, heat or cold intolerance, new onset joint pain or swelling, new onset extremity weakness or numbness, new onset auditory or visual disturbances, lightheadedness, dizziness, partial loss of consciousness or full loss of consciousness. Current Outpatient Medications Medication Sig Cholecalciferol, Vitamin D3, 50 mcg (2,000 unit) cap Take 1 capsule by mouth once daily. omega 7-xiw-xlv-fish oil 1,000 mg (250 mg-750 mg)/5 mL liqd Take 1 capsule by mouth once daily. melatonin 3 mg capsules Take 3 mg by mouth daily at bedtime. As needed fexofenadine HCl (SUSAN ORAL) Take by mouth. amLODIPine (NORVASC) 2.5 mg tablet Take 2.5 mg by mouth once daily. metoprolol succinate XL, long acting, (TOPROL XL) 50 mg 24 hr tablet Take 100 mg by mouth once daily. liothyronine (CYTOMEL) 25 mcg tablet Take 25 mcg by mouth once daily. levothyroxine (SYNTHROID) 125 mcg tablet Take 125 mcg by mouth daily before breakfast. hydrochlorothiazide (HYDRODIURIL, ESIDRIX) 25 mg tablet Take 25 mg by mouth once daily. meloxicam (MOBIC) 7.5 mg tablet take 1 tablet by mouth once daily (Patient not taking: Reported on 12/09/2022) zolpidem (AMBIEN) 5 mg tablet Take 1 tablet by mouth at bedtime as needed for up to 7 days. ondansetron (ZOFRAN) 4 mg tablet Take 1 tablet by mouth every 8 hours as needed for nausea/vomiting. oxyCODONE-acetaminophen (PERCOCET) 5-325 mg tablet Take 1 tablet by mouth every 6 hours as needed for pain. No current facility-administered medications for this visit. Physical Exam Vitals: LMP 07/02/2014 Psych: Pleasant, good affect and mood General Appearance: Well appearing, alert, in no acute distress, well-hydrated, well nourished.. Skin: Skin color, texture, turgor normal, no suspicious rashes or lesions. Peripheral Pulses: Normal. Neurologic: Gait normal. Reflexes normal and symmetric. Sensation grossly intact.. Lymph Nodes: No cervical lymphadenopathy, No supraclavicular lymphadenopathy, No axillary lymphadenopathy., and No inguinal lymphadenopathy.. Respiratory: No recent pulmonary infection, hemoptysis, chronic cough, or shortness of breath at rest Rheumatologic: Joint deformities: right knee pain Right Knee Exam Tende (more content not included)... Normal [facility] CNOVon 04-29-2022 CNOV Office Visit (ORMDNA ) ROSANNE BANERJEE ([id number]) 1960 F Date Time Provider Department 04/29/22 8:00 AM GABY VALADEZ During your visit today, we recorded the following information about you: Gaby Valadez PA-C 04/29/2022 8:52 AM Signed Ms. Rosanne Banerjee presents today for right knee supartz injection #3/3. Today she rates her pain a 1 on a scale of 0 to 10. Large Joint Arthro/Inj: R knee joint Informed Consent Consent Obtained: Verbal Byron Protocol A moment to CARE was completed. SIGN IN Personnel directly involved with the procedure wore the appropriate PPE. Special Equipment: N/A Patient/Surrogate Stated/Verified: Patient name, Date of , Relevant allergies and Intended procedure TIME OUT Intended patient and procedure match the source document(s). Consent documented and matches the intended procedure. Relevant labs, photos, and/or imaging studies have been reviewed. Correct side/site marked and visible. Medications required for procedure verified. No fire risk assessment and interventions applicable. No implant(s) inserted. 04/29/2022 8:51 AM The procedure site was prepped in the usual sterile fashion. Site: R knee joint Medications: 2.5 mL sodium hyaluronate 10/ mg/mL Outcome: Tolerated well, no immediate complications Post-injection instructions were reviewed with the patient and the patient voiced understanding of these instructions. SIGN OUT No specimen collected. No instruments, equipment or retained foreign bodies applicable. Post-procedure follow-up management communicated and Plan of Care Visit completed when applicable Gaby Valadez PA-C Referring Provider: DESTINY RANDALL [[id number]] Allergies As of Date: 04/29/2022 Noted Allergy Reaction ALTACE (RAMIPRIL) 06/16/2014 7 - Swelling Date Reviewed: 04/29/2022 Reviewed by: Gaby Valadez PA-C - Fully Assessed Reason for Visit: Established Patient [175] Injections [199] Primary Visit Diagnosis:Primary osteoarthritis of right knee [M17.11] Order(s):Large Joint Arthro/Inj: R knee joint [QTV063] Order #: [id number] [] sodium hyaluronate 2.5 mL injection (SUPARTZ FX)Disp: Rfl: Prescriptions as of 04/29/2022 - meloxicam (MOBIC) 7.5 mg tablet take 1 tablet by mouth once daily - zolpidem (AMBIEN) 5 mg tablet Take 1 tablet by mouth at bedtime as needed for up to 7 days. - ondansetron (ZOFRAN) 4 mg tablet Take 1 tablet by mouth every 8 hours as needed for nausea/vomiting. - oxyCODONE-acetaminophen (PERCOCET) 5-325 mg tablet Take 1 tablet by mouth every 6 hours as needed for pain. - Cholecalciferol, Vitamin D3, 50 mcg (2,000 unit) cap Take 1 capsule by mouth once daily. - omega 8-ssl-yik-fish oil 1,000 mg (250 mg-750 mg)/5 mL liqd Take 1 capsule by mouth once daily. - melatonin 3 mg capsules Take 3 mg by mouth daily at bedtime. As needed - fexofenadine HCl (SUSAN ORAL) Take by mouth. - amLODIPine (NORVASC) 2.5 mg tablet Take 2.5 mg by mouth once daily. - metoprolol succinate XL, long acting, (TOPROL XL) 50 mg 24 hr tablet Take 100 mg by mouth once daily. - liothyronine (CYTOMEL) 25 mcg tablet Take 25 mcg by mouth once daily. - levothyroxine (SYNTHROID) 125 mcg tablet Take 125 mcg by mouth daily before breakfast. - hydrochlorothiazide (HYDRODIURIL, ESIDRIX) 25 mg tablet Take 25 mg by mouth once daily. 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] 05/18/2015 Essential (primary) hypertension [I10] 01/07/2020 Hypothyroidism [E03.9] 07/23/2021 Morbid obesity (HCC) [E66.01] 07/23/2021 Tear of medial meniscus of right knee [S83.241A]07/23/2021 07/27/2021 Prescriptions ordered this encounter Disp Refills Start End SODIUM HYALURONATE (SUPARTZ) 10 MG/M* 04/29/2022 04/29/2022 Route: Inj-ORTHO Encounter Status:Closed by GABY VALADEZ on 04/29/22 [facility] CNOVon 04-22-2022 CNOV Office Visit (RUDY ) ROSANNE BANERJEE ([id number]) 1960 F Date Time Provider Department 04/22/22 10:00 AM DESTINY RANDALL During your visit today, we recorded the following information about you: Destiny Randall DO 04/28/2022 1:11 PM Addendum Follow Up Visit Chief Complaint Rosanne Banerjee is a 61 year old female who presents today for follow up office visit. Patient presents with: Right Knee - Established Patient, Knee Pain, Supartz Fx injection #2 History of Present Illness PAIN EVALUATION 04/22/2022 1026 Pain Level: 2 Pain Location: Knee-Right Description: Aching Comments: SupartZ Fx injection #1: 04/15/22 HPI: Rosanne Banerjee is a 61 year old female for a follow up visit right knee Supartz Fx injection #2. Patient states her pain is mostly bothersome when she is walking or with certain movements. Pain history is noted as above. Denies calf pain, numbness, tingling, fever, chills or other constitutional symptoms. Is there any overall improvement in your condition? Yes, pain Any new injury, since being seen last: No REVIEW OF SYMPTOMS: Patient did not have, and does not currently have, any weight loss, malaise, fever, chills, headache, chest pain, chest pressure, palpitations, cough, shortness of breath, orthopnea, paroxsymal nocturnal dyspnea, nausea, vomiting, diarrhea, constipation, melena, hematochezia, urinary difficulties, prolonged bleeding, easily bruising, heat or cold intolerance, new onset joint pain or swelling, new onset extremity weakness or numbness, new onset auditory or visual disturbances, lightheadedness, dizziness, partial loss of consciousness or full loss of consciousness. Current Outpatient Medications Medication Sig meloxicam (MOBIC) 7.5 mg tablet take 1 tablet by mouth once daily Cholecalciferol, Vitamin D3, 50 mcg (2,000 unit) cap Take 1 capsule by mouth once daily. omega 8-rjz-egm-fish oil 1,000 mg (250 mg-750 mg)/5 mL liqd Take 1 capsule by mouth once daily. melatonin 3 mg capsules Take 3 mg by mouth daily at bedtime. As needed fexofenadine HCl (SUSAN ORAL) Take by mouth. amLODIPine (NORVASC) 2.5 mg tablet Take 2.5 mg by mouth once daily. metoprolol succinate XL, long acting, (TOPROL XL) 50 mg 24 hr tablet Take 100 mg by mouth once daily. liothyronine (CYTOMEL) 25 mcg tablet Take 25 mcg by mouth once daily. levothyroxine (SYNTHROID) 125 mcg tablet Take 125 mcg by mouth daily before breakfast. hydrochlorothiazide (HYDRODIURIL, ESIDRIX) 25 mg tablet Take 25 mg by mouth once daily. zolpidem (AMBIEN) 5 mg tablet Take 1 tablet by mouth at bedtime as needed for up to 7 days. ondansetron (ZOFRAN) 4 mg tablet Take 1 tablet by mouth every 8 hours as needed for nausea/vomiting. oxyCODONE-acetaminophen (PERCOCET) 5-325 mg tablet Take 1 tablet by mouth every 6 hours as needed for pain. No current facility-administered medications for this visit. Physical Exam Vitals: LMP 07/02/2014 Psych: Pleasant, good affect and mood General Appearance: Well appearing, alert, in no acute distress, well-hydrated, well nourished.. Skin: Skin color, texture, turgor normal, no suspicious rashes or lesions. Peripheral Pulses: Normal. Neurologic: Gait normal. Reflexes normal and symmetric. Sensation grossly intact.. Lymph Nodes: No cervical lymphadenopathy, No supraclavicular lymphadenopathy, No axillary lymphadenopathy., and No inguinal lymphadenopathy.. Respiratory: No recent pulmonary infection, hemoptysis, chronic cough, or shortness of breath at rest Rheumatologic: Joint deformities: right knee epain Right Knee Exam Tenderness The patient is experiencing tenderness in the medial joint line. Tests Caitlyn: Anterior - negative Posterior - negative Drawer: Anterior - negative Posterior - negative Patellar apprehension: positive Other Erythema: absent Sensation: normal Pulse: present Swelling: none Left Knee Exam Left knee exam is normal. Muscle Strength The patient has normal left knee strength. Tenderness The patient is experiencing no tenderness. Range of Motion Extension: normal Flexion: normal Tests Caitlyn: Anterior - negative Posterior - negative Drawer: Anterior - negative Posterior - negative Other Erythema: absent Sensation: normal Pulse: present Swelling: none Comments: Neg homans bilaterally Assessment and Plan Radiographs: No imaging to review. Impression: Encounter Diagnosis ICD-10-CM 1. Primary osteoarthritis of right knee M17.11 Large Joint Arthro/Inj: R knee joint Informed Consent Consent Obtained: Verbal Byron Protocol A moment to CARE was completed. SIGN IN Personnel directly involved with the procedure wore the appropriate PPE. Special Equipment: Yes Patient/Surrogate Stated/Verified: Date of , Relevant allergies, Intended procedure and Patient name (more content not included)... Normal [facility] CNOVon 04-15-2022 CNOV Office Visit (ORMDNA ) ROSANNE BANERJEE ([id number]) 1960 F Date Time Provider Department 04/15/22 11:00 AM GABY VALADEZ During your visit today, we recorded the following information about you: Weight Height 123.8 kg 1.575 m Gaby Valadez PA-C 04/15/2022 11:25 AM Signed Ms. Rosanne Banerjee presents today for right knee supartz injection #1/5. Today she rates her pain a 2 on a scale of 0 to 10. Large Joint Arthro/Inj: R knee joint Informed Consent Consent Obtained: Verbal Byron Protocol A moment to CARE was completed. SIGN IN Personnel directly involved with the procedure wore the appropriate PPE. Special Equipment: N/A Patient/Surrogate Stated/Verified: Patient name, Date of , Relevant allergies and Intended procedure TIME OUT Intended patient and procedure match the source document(s). Consent documented and matches the intended procedure. Relevant labs, photos, and/or imaging studies have been reviewed. Correct side/site marked and visible. Medications required for procedure verified. No fire risk assessment and interventions applicable. No implant(s) inserted. 04/15/2022 11:24 AM The procedure site was prepped in the usual sterile fashion. Site: R knee joint Medications: 2.5 mL sodium hyaluronate 10/ mg/mL Anesthetics: 3 mL lidocaine (PF) 10 mg/mL (1 %) Outcome: Tolerated well, no immediate complications Post-injection instructions were reviewed with the patient and the patient voiced understanding of these instructions. SIGN OUT No specimen collected. No instruments, equipment or retained foreign bodies applicable. Post-procedure follow-up management communicated and Plan of Care Visit completed when applicable Gaby Valadez PA-C Referring Provider: DESITNY RANDALL [[id number]] Allergies As of Date: 04/15/2022 Noted Allergy Reaction DELIA (RAMIPRIL) 06/16/2014 7 - Swelling Date Reviewed: 04/15/2022 Reviewed by: Gaby Valadez PA-C - Fully Assessed Reason for Visit: Established Patient [175] Knee Pain [132] Injections [199] Primary Visit Diagnosis:Primary osteoarthritis of right knee [M17.11] Order(s):Large Joint Arthro/Inj: R knee joint [[id number]] Order #: [id number] [] sodium hyaluronate 2.5 mL injection (SUPARTZ FX)Disp: Rfl: [] lidocaine (PF) 10 mg/mL (1 %) 3 mL injection (XYLOCAINE)Disp: Rfl: Prescriptions as of 04/15/2022 - meloxicam (MOBIC) 7.5 mg tablet take 1 tablet by mouth once daily - zolpidem (AMBIEN) 5 mg tablet Take 1 tablet by mouth at bedtime as needed for up to 7 days. - ondansetron (ZOFRAN) 4 mg tablet Take 1 tablet by mouth every 8 hours as needed for nausea/vomiting. - oxyCODONE-acetaminophen (PERCOCET) 5-325 mg tablet Take 1 tablet by mouth every 6 hours as needed for pain. - Cholecalciferol, Vitamin D3, 50 mcg (2,000 unit) cap Take 1 capsule by mouth once daily. - omega 8-hux-cwx-fish oil 1,000 mg (250 mg-750 mg)/5 mL liqd Take 1 capsule by mouth once daily. - melatonin 3 mg capsules Take 3 mg by mouth daily at bedtime. As needed - fexofenadine HCl (SUSAN ORAL) Take by mouth. - amLODIPine (NORVASC) 2.5 mg tablet Take 2.5 mg by mouth once daily. - metoprolol succinate XL, long acting, (TOPROL XL) 50 mg 24 hr tablet Take 100 mg by mouth once daily. - liothyronine (CYTOMEL) 25 mcg tablet Take 25 mcg by mouth once daily. - levothyroxine (SYNTHROID) 125 mcg tablet Take 125 mcg by mouth daily before breakfast. - hydrochlorothiazide (HYDRODIURIL, ESIDRIX) 25 mg tablet Take 25 mg by mouth once daily. 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 Essential (primary) hypertension [I10] 01/07/2020 Hypothyroidism [E03.9] 07/23/2021 Morbid obesity (HCC) [E66.01] 07/23/2021 Tear of medial meniscus of right knee [S83.241A]07/23/2021 07/27/2021 Prescriptions ordered this encounter Disp Refills Start End SODIUM HYALURONATE (SUPARTZ) 10 MG/M* 04/15/2022 04/15/2022 Route: Inj-ORTHO LIDOCAINE (PF) 10 MG/ML (1 %) INJECT* 04/15/2022 04/15/2022 Route: Inj-ORTHO Encounter Status:Closed by GABY VALADEZ on 04/15/22 [facility] Paula 03-24-2022 AIDE Telephone (RUDY) ROSANNE BANERJEE ([id number]) 1960 F Date Time Provider Department 03/24/22 DESTINY RANDALL During your visit today, we recorded the following information about you: Eligio Muniz 03/24/2022 12:56 PM Signed Patient is scheduled on 04/15/[address] Randall for a Supartz injection in R knee. However Dr. Randall is not going to be in on 04/15/22 and I was wondering if another provider is able to give her the injection. Please advise, thank you! PSS please call patient if ok'd by PA to schedule with them. Thanks! Eligio Muniz 03/24/2022 1:53 PM Signed I called and scheduled patient, thanks Aubree! Allergies As of Date: 03/24/2022 Noted Allergy Reaction ALTACE (RAMIPRIL) 06/16/2014 7 - Swelling Date Reviewed: 02/24/2022 Reviewed by: Destiny Randall DO - Fully Assessed Reason for Visit: Appointment Conflict [Other] Prescriptions as of 03/24/2022 - meloxicam (MOBIC) 7.5 mg tablet Take 1 tablet by mouth once daily. - zolpidem (AMBIEN) 5 mg tablet Take 1 tablet by mouth at bedtime as needed for up to 7 days. - ondansetron (ZOFRAN) 4 mg tablet Take 1 tablet by mouth every 8 hours as needed for nausea/vomiting. - oxyCODONE-acetaminophen (PERCOCET) 5-325 mg tablet Take 1 tablet by mouth every 6 hours as needed for pain. - Cholecalciferol, Vitamin D3, 50 mcg (2,000 unit) cap Take 1 capsule by mouth once daily. - omega 1-tlu-tkm-fish oil 1,000 mg (250 mg-750 mg)/5 mL liqd Take 1 capsule by mouth once daily. - melatonin 3 mg capsules Take 3 mg by mouth daily at bedtime. As needed - fexofenadine HCl (SUSAN ORAL) Take by mouth. - amLODIPine (NORVASC) 2.5 mg tablet Take 2.5 mg by mouth once daily. - metoprolol succinate XL, long acting, (TOPROL XL) 50 mg 24 hr tablet Take 100 mg by mouth once daily. - liothyronine (CYTOMEL) 25 mcg tablet Take 25 mcg by mouth once daily. - levothyroxine (SYNTHROID) 125 mcg tablet Take 125 mcg by mouth daily before breakfast. - hydrochlorothiazide (HYDRODIURIL, ESIDRIX) 25 mg tablet Take 25 mg by mouth once daily. 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 Basophil percentageon 2021 Chloride [Moles/Vol] 100 mmol/L 98-107 [facility] Work Phone: Cholesterol [Mass/Vol] 190 mg/dL <200 [facility] Work Phone: Comment on above: <200 mg/dL Desirable 200-240 mg/dL Borderline >240 mg/dL High Risk Glucose [Mass/Vol] 90 mg/dL 74-106 [facility] Work Phone: Potassium [Moles/Vol] 4.0 mmol/L 3.5-5.1 [facility] Work Phone: Sodium [Moles/Vol] 134 mmol/L 136-145 [facility] Work Phone: Triglyceride [Mass/Vol] 53 mg/dL <199 [facility] Work Phone: Comment on above: The drugs N-Acetylcy steine and Metamizole may falsely depress this assay.Serum Triglycerides Reference Interval Normal <150 mg/dL Borderline high 150 - 199 mg/dL High 200 - 499 mg/dL Very High > or = 500 mg/dL Laboratory - Chemistry and C hemistry - challengeon 03-02-2022 ALT [Catalytic activity/Vol] 30 U/L 13-56 [facility] Work Phone: CO2 [Moles/Vol] 27.0 mmol/L 21.0-32.0 [facility] Work Phone: T4 [Mass/Vol] 10.1 ug/dL 4.8-13.9 [facility] Work Phone: Urea nitrogen/Creatinine [Mass ratio] 29.8 mg/mg 10-20 [facility] Work Phone: No Panel Informationon 03-02 Estimated GFR (MDRD) Amer 108 mL/min >60 [facility] Work Phone: Comment on above: GFR Calc Estimated GFR (MDRD) Non-Af Amer 89 mL/min >60 [facility] Work Phone: Comment on above: Non- GFR Calc Thyroid Stimulating Hormone (TSH) 0.20 uIU/mL 0.358-3.74 [facility] Work Phone: Urine Microalbumin/Creatin ine Ratio 5.9 mg/g CRE <30 [facility] Work Phone: Serum or plasma calcium jena urement (mass/volume)on 03-02-2022 Calcium [Mass/Vol] 9.2 mg/dL 8.5-10.1 [facility] Work Phone: Serum or plasma cholesterol in HDL measurement (mass/volume)on 03-02-2022 Cholesterol in HDL [Mass/Vol] 75 mg/dL >40 [facility] Work Phone: Comment on above: The drugs N-Acetylcy steine and Metamizole may falsely depress this assay. Reference Range HDL <40 mg/dL Low HDL Cholesterol HDL >or= 60 mg/dL High HDL Cholesterol Serum or plasma cholesterol in VLDL measurement (mass/volume)on 03-02-2022 Cholesterol in VLDL [Mass/Vol] 11 mg/dL 5-40 [facility] Work Phone: Serum or plasma creatinine m easurement (mass/volume)on 03-02-2022 Creatinine [Mass/Vol] 0.70 mg/dL 0.55-1.02 [facility] Work Phone: Comment on above: The validity of the calculated GFR & GFRAA in patients over 70 years has not been determined. Clinical correlation is essential. Serum or plasma low density lipoprotein (LDL) cholesterol measurement (mass/volume)on 03-02-2022 Cholesterol in LDL [Mass/Vol] 104 mg/dL 0-130 [facility] Work Phone: Serum or plasma urea nitroge n measurement (mass/volume)on 03-02-2022 Urea nitrogen [Mass/Vol] 21 mg/dL 7-18 [facility] Work Phone: Thin prep Papanicolaou smear with manual screeningon 03-02-2022 Thin prep Papanicolaou smear with manual screening 22 U/L 15-37 [facility] Work Phone: Thin prep Papanicolaou smear with manual screening 7 5-15 [facility] Work Phone: Thin prep Papanicolaou smear with manual screening 7.9 mg/L NO RANGE EST. [facility] Work Phone: Urine creatinine measurement (mass/volume)on 03-02-2022 Creatinine (U) [Mass/Vol] 134.00 mg/dL NO RANGE EST. [facility] Work Phone: CNOVon 02-24-2022 CNOV Office Visit (DAKOTA ) ROSANNE BANERJEE ([id number]) 1960 F Date Time Provider Department 02/24/22 9:30 AM DESTINY RANDALL During your visit today, we recorded the following information about you: Lexy Lawrence RN 02/24/2022 10:33 AM Signed Patient presents with: Right Knee - Established Patient, Knee Pain: 7 wks post injection Arthroscopy 07/27/21 AMB ROOMING INTAKE FLOWSHEET DATA Risk Screening Do you have concerns about personal safety or safety in the home?: No Pain Pain Level: 4 Pain Location: Knee-Right Description: Sore Duration Amount of Time: (ongoing) Frequency: Intermittent Intervention/Comfort measure: Medication, Other: See comment (PT) Patient is here for follow up on right knee pain. She received an injection 01/06/22 and states that it lasted until beginning of February, but has been bothering her again quite a bit. Patient has been taking meloxicam and going to physical therapy. Destiny Randall DO 02/24/2022 10:33 AM Signed Follow Up Visit Chief Complaint Rosanne Banerjee is a 61 year old female who presents today for follow up office visit. Patient presents with: Right Knee - Established Patient, Knee Pain: 7 wks post injection Arthroscopy 07/27/21 History of Present Illness PAIN EVALUATION 02/24/2022 1012 Pain Level: 4 Pain Location: Knee-Right Description: Sore Duration Amount of Time: -- ongoing Frequency: Intermittent Intervention/Comfort measure: Medication;Other: See comment PT HPI: Rosanne Banerjee is a 61 year old female for a follow up visit rigth knee pain. Pain history is noted as above. Denies calf pain, numbness, tingling, fever, chills or other constitutional symptoms. Syupartz approved, is leaving in March Is there any overall improvement in your condition? Yes, Any new injury, since being seen last: No REVIEW OF SYMPTOMS: Patient did not have, and does not currently have, any weight loss, malaise, fever, chills, headache, chest pain, chest pressure, palpitations, cough, shortness of breath, orthopnea, paroxsymal nocturnal dyspnea, nausea, vomiting, diarrhea, constipation, melena, hematochezia, urinary difficulties, prolonged bleeding, easily bruising, heat or cold intolerance, new onset joint pain or swelling, new onset extremity weakness or numbness, new onset auditory or visual disturbances, lightheadedness, dizziness, partial loss of consciousness or full loss of consciousness. Current Outpatient Medications Medication Sig meloxicam (MOBIC) 7.5 mg tablet Take 1 tablet by mouth once daily. Cholecalciferol, Vitamin D3, 50 mcg (2,000 unit) cap Take 1 capsule by mouth once daily. omega 0-bhk-dfa-fish oil 1,000 mg (250 mg-750 mg)/5 mL liqd Take 1 capsule by mouth once daily. melatonin 3 mg capsules Take 3 mg by mouth daily at bedtime. As needed fexofenadine HCl (SUSAN ORAL) Take by mouth. amLODIPine (NORVASC) 2.5 mg tablet Take 2.5 mg by mouth once daily. metoprolol succinate XL, long acting, (TOPROL XL) 50 mg 24 hr tablet Take 100 mg by mouth once daily. liothyronine (CYTOMEL) 25 mcg tablet Take 25 mcg by mouth once daily. levothyroxine (SYNTHROID) 125 mcg tablet Take 125 mcg by mouth daily before breakfast. hydrochlorothiazide (HYDRODIURIL, ESIDRIX) 25 mg tablet Take 25 mg by mouth once daily. zolpidem (AMBIEN) 5 mg tablet Take 1 tablet by mouth at bedtime as needed for up to 7 days. ondansetron (ZOFRAN) 4 mg tablet Take 1 tablet by mouth every 8 hours as needed for nausea/vomiting. oxyCODONE-acetaminophen (PERCOCET) 5-325 mg tablet Take 1 tablet by mouth every 6 hours as needed for pain. No current facility-administered medications for this visit. Physical Exam Vitals: [facility] 07/02/2014 Psych: Pleasant, good affect and mood General Appearance: Well appearing, alert, in no acute distress, well-hydrated, well nourished.. Skin: Skin color, texture, turgor normal, no suspicious rashes or lesions. Peripheral Pulses: Normal. Neurologic: Gait normal. Reflexes normal and symmetric. Sensation grossly intact.. Lymph Nodes: No cervical lymphadenopathy, No supraclavicular lymphadenopathy, No axillary lymphadenopathy., and No inguinal lymphadenopathy.. Respiratory: No recent pulmonary infection, hemoptysis, chronic cough, or shortness of breath at rest Rheumatologic: Joint deformities: Right knee pain Right Knee Exam Right knee exam is normal. Muscle Strength The patient has normal right knee strength. Tenderness The patient is experiencing no tenderness. Range of Motion Extension: normal Flexion: normal Tests Caitlyn: Anterior - negative Posterior - negative Drawer: Anterior - negative Posterior - negative Other Erythema: absent Sensation: normal Pulse: present Swelling: none Left Knee Exam Left knee exam is normal. Muscle Strength The patient has normal left (more content not included)... [facility] ([id number]) 1960 F Date Time Provider Department 02/02/22 DESTINY RANDALL During your visit today, we recorded the following information about you: Musa Yoon [facility] 02/02/2022 2:07 PM Signed Fax came approving Rt knee sp. Scanned to chart. Please contact the patient for scheduling. Allergies As of Date: 02/02/2022 Noted Allergy Reaction ALTACE (RAMIPRIL) 06/16/2014 7 - Swelling Date Reviewed: 01/07/2022 Reviewed by: Destiny Randall DO - Fully Assessed Reason for Visit: Appointment [[id number]] Prescriptions as of 11/11/2022 - meloxicam (MOBIC) 7.5 mg tablet take 1 tablet by mouth once daily - zolpidem (AMBIEN) 5 mg tablet Take 1 tablet by mouth at bedtime as needed for up to 7 days. - ondansetron (ZOFRAN) 4 mg tablet Take 1 tablet by mouth every 8 hours as needed for nausea/vomiting. - oxyCODONE-acetaminophen (PERCOCET) 5-325 mg tablet Take 1 tablet by mouth every 6 hours as needed for pain. - Cholecalciferol, Vitamin D3, 50 mcg (2,000 unit) cap Take 1 capsule by mouth once daily. - omega 9-rps-tgt-fish oil 1,000 mg (250 mg-750 mg)/5 mL liqd Take 1 capsule by mouth once daily. - melatonin 3 mg capsules Take 3 mg by mouth daily at bedtime. As needed - fexofenadine HCl (SUSAN ORAL) Take by mouth. - amLODIPine (NORVASC) 2.5 mg tablet Take 2.5 mg by mouth once daily. - metoprolol succinate XL, long acting, (TOPROL XL) 50 mg 24 hr tablet Take 100 mg by mouth once daily. - liothyronine (CYTOMEL) 25 mcg tablet Take 25 mcg by mouth once daily. - levothyroxine (SYNTHROID) 125 mcg tablet Take 125 mcg by mouth daily before breakfast. - hydrochlorothiazide (HYDRODIURIL, ESIDRIX) 25 mg tablet Take 25 mg by mouth once daily. 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] 05/18/2015 Essential (primary) hypertension [I10] 01/07/2020 Hypothyroidism [E03.9] 07/23/2021 Morbid obesity (HCC) [E66.01] 07/23/2021 Tear of medial meniscus of right knee [S83.241A]07/23/2021 07/27/2021 Encounter Status:Closed by MUSA DACOSTA on 11/11/22 [facility] CNOVon 01-06-2022 CNOV Office Visit (ORMDNA ) ROSANNE BANERJEE ([id number]) 1960 F Date Time Provider Department 01/06/22 10:45 AM DESTINY RANDALL During your visit today, we recorded the following information about you: Destiny Randall DO 01/27/2022 1:38 PM Addendum Additional Injections: R Distal hamstring tendon for Knee Tendinopathy Informed Consent Consent Obtained: Verbal Byron Protocol A moment to CARE was completed. SIGN IN Sign in communication not applicable due to emergent procedure. Personnel directly involved with the procedure wore the appropriate PPE. Special Equipment: N/A Patient/Surrogate Stated/Verified: Patient name, Date of , Relevant allergies and Intended procedure TIME OUT Intended patient and procedure match the source document(s). Consent documented and matches the intended procedure. Relevant labs, photos, and/or imaging studies have been reviewed. Correct side/site marked and visible. Medications required for procedure verified. No fire risk assessment and interventions applicable. No implant(s) inserted. 01/06/2022 1:59 PM The procedure site was prepped in the usual sterile fashion. Site: R Distal hamstring tendon Medications: 40 mg triamcinolone acetonide 40 mg/mL Anesthetics: 4 mL bupivacaine (PF) 0.5 % (5 mg/mL) Outcome: tolerated well, no immediate complications Post-injection instructions were reviewed with the patient and the patient voiced understanding of these instructions. SIGN OUT All specimen containers correctly labeled. All instruments, equipment, possible retained foreign bodies accounted for. Post-procedure follow-up management communicated and Plan of Care Visit completed when applicable Follow Up Visit Chief Complaint Rosanne Banerjee is a 61 year old female who presents today for follow up office visit. Patient presents with: Right Knee - Follow Up, Knee Pain History of Present Illness PAIN EVALUATION 01/06/2022 1057 Pain Level: 2 only when walking Pain Location: Knee-Right Description: Aching;Dull;Sore Duration Amount of Time: -- DOS: 07/27 Frequency: Intermittent Intervention/Comfort measure: Reposition;Relaxation;Other: See comment PT HPI: Rosanne Banerjee is a 61 year old female for a follow up visit right knee pain. Patient complains of some knee pain today on the medial/anterior portion of her knee. Participated in PT 4x a week, two days water therapy and two days traditional. Only has pain when walking. Pain history is noted as above. Denies calf pain, numbness, tingling, fever, chills or other constitutional symptoms. Advancing out of water therapy, to land therapy with PT- wants to do steps Is there any overall improvement in your condition? No Any new injury, since being seen last: No REVIEW OF SYMPTOMS: Patient did not have, and does not currently have, any weight loss, malaise, fever, chills, headache, chest pain, chest pressure, palpitations, cough, shortness of breath, orthopnea, paroxsymal nocturnal dyspnea, nausea, vomiting, diarrhea, constipation, melena, hematochezia, urinary difficulties, prolonged bleeding, easily bruising, heat or cold intolerance, new onset joint pain or swelling, new onset extremity weakness or numbness, new onset auditory or visual disturbances, lightheadedness, dizziness, partial loss of consciousness or full loss of consciousness. Current Outpatient Medications Medication Sig Cholecalciferol, Vitamin D3, 50 mcg (2,000 unit) cap Take 1 capsule by mouth once daily. omega 6-cxo-dfm-fish oil 1,000 mg (250 mg-750 mg)/5 mL liqd Take 1 capsule by mouth once daily. melatonin 3 mg capsules Take 3 mg by mouth daily at bedtime. As needed fexofenadine HCl (SUSAN ORAL) Take by mouth. amLODIPine (NORVASC) 2.5 mg tablet Take 2.5 mg by mouth once daily. metoprolol succinate XL, long acting, (TOPROL XL) 50 mg 24 hr tablet Take 100 mg by mouth once daily. liothyronine (CYTOMEL) 25 mcg tablet Take 25 mcg by mouth once daily. levothyroxine (SYNTHROID) 125 mcg tablet Take 125 mcg by mouth daily before breakfast. hydrochlorothiazide (HYDRODIURIL, ESIDRIX) 25 mg tablet Take 25 mg by mouth once daily. meloxicam (MOBIC) 7.5 mg tablet Take 1 tablet by mouth once daily. zolpidem (AMBIEN) 5 mg tablet Take 1 tablet by mouth at bedtime as needed for up to 7 days. ondansetron (ZOFRAN) 4 mg tablet Take 1 tablet by mouth every 8 hours as needed for nausea/vomiting. oxyCODONE-acetaminophen (PERCOCET) 5-325 mg tablet Take 1 tablet by mouth every 6 hours as needed for pain. No current facility-administered medications for this visit. Physical Exam Vitals: [facility] 07/02/2014 Psych: Pleasant, good affect and mood General Appearance: Well appearing, alert, in no acute distress, well-hydrated, well nourished.. Skin: Skin color, texture, turgor normal, no suspicious rashes or le (more content not included)... Normal [facility] ANES POSTPROC EVALon 022 ANES POSTPROC EVAL HNO ID: [id number] Author: Rafal Cooley MD Service: Anesthesiology Author Type: Physician Type: Anesthesia Postprocedure Evaluation Filed: 07/27/2021 2:59 PM Note Text: POST ANESTHESIA EVALUATION NOTE : 1960 Procedure Summary Date: 07/27/21 Room / [place]: [place] Anesthesia Start: 1210 Anesthesia Stop: 135 Procedure: ARTHROSCOPY, KNEE MENISCUS REPAIR MEDIAL OR LATERAL (Right Knee) Diagnosis: Acute medial meniscus tear of right knee, initial encounter Surgeons: Destiny Randall DO Responsible Provider: Rafal Cooley MD Anesthesia Type: general ASA Status: 3 Anesthesia Type: general Airway Type: LMA Last Vitals Vitals Value Taken Time BP 140/79 07/27/21 1455 Temp 36 ?C (96.8 ?F) 07/27/21 1355 Pulse 53 07/27/21 1457 Resp 16 07/27/21 1457 SpO2 100 % 07/27/21 1457 Vitals shown include unvalidated device data. Post Anesthesia Patient Status Patient Evaluation: PACU. PACU/ICU Patient Condition: stable. Anticipated Disposition: phase 2 then home. Neurological Status: aware and responsive. Pulmonary Status: breathing comfortably on room air Airway Control: returned to baseline unsupported. Cardiovascular Status: stable. Pain Management: clinically adequate - multimodal analgesia pain management approach Postoperative Hydration: acceptable. Intraoperative Events: no significant anesthesia events Recommendation: continue current plan of care. Anesthesia Observations No Documentation SIGNATURE: Rafal Cooley MD PATIENT NAME: Rosanne Banerjee DATE: July 27, 2021 TIME: 2:59 PM CSN: [id number] [facility] ANES PRE-OPon 07-27-2021 ANES PRE-OP HNO ID: [id number] Author: Rafal Cooley MD Service: Anesthesiology Author Type: Physician Type: Anesthesia Preprocedure Evaluation Filed: 07/27/2021 11:56 AM Note Text: ANESTHESIOLOGY DAY OF SURGERY NOTE : 1960 Procedure Information Date/Time: 07/27/21 1307 Procedure: ARTHROSCOPY, KNEE MENISCUS REPAIR MEDIAL OR LATERAL (Right Knee) [place]02 [place] Surgeons: Destiny Randall DO Estimated body mass index is 49.95 kg/m? as calculated from the following: Height as of this encounter: 157.5 cm (5' 2.01). Weight as of this encounter: 123.9 kg (273 lb 2.4 oz). Most recent hematocrit and potassium results: Hematocrit 42.4 07/25/2014 Potassium 4.2 07/25/2014 Relevant Problems CARDIO (+) Essential (primary) hypertension ENDO (+) Hypothyroidism I - PHYSICAL EVALUATION AIRWAY Patient intubated: No. Tracheostomy tube not present Mallampati: II. TM distance: >3 FB. Neck ROM: full ROM without neurological symptoms. Mouth opening: adequate. Short neck: no. Thick neck: no DENTAL Dental findings: teeth intact. Additional exam findings: no II - ANESTHESIA PLAN ASA Score: 3 Anesthetic Plan: general NPO Status: adequate Monitoring plan: Standard ASA. Anesthetic plan additional comments: Patient took her BP meds today. Postoperative analgesic plan: parenteral or oral opioids and multimodal analgesia. Informed Consent Anesthetic risks, benefits, alternatives, personnel and consent discussed: yes. Patient / Responsible [employer] agrees to proceed: yes Patient / Surrogate agrees to blood products: yes DNR status not reviewed with patient and/or family prior to surgery. Significant changes in the patient condition since the History and Physical, not otherwise documented in primary service progress note: no. Potential Anesthesia issues that may suggest increased risk of complications or contraindication to planned procedure: none. Vitals Value Taken Time BP 202/81 07/27/21 1144 Pulse 52 07/27/21 1144 Resp 16 07/27/21 1144 Temp 36.7 ?C (98.1 ?F) 07/27/21 1144 SpO2 98 % 07/27/21 1144 Facility-Administered Medications as of 07/27/2021 Medication Dose Route Frequency - lidocaine 10 mg/mL (1 %) 1-2 mg injection (XYLOCAINE) 0.1-0.2 mL INTRADERMAL PRN - lactated ringers iv infusion 5-30 mL/hr INTRAVENOUS CONTINUOUS - ceFAZolin 3 g in D5W 100 mL (ANCEF) 3 g INTRAVENOUS Pre-Op Once - NaCl 0.9% iv flush bag 20 mL INTRAVENOUS PRN Outpatient Medications as of 07/27/2021 Medication Sig - amLODIPine (NORVASC) 2.5 mg tablet Take 2.5 mg by mouth once daily. - metoprolol succinate XL, long acting, (TOPROL XL) 50 mg 24 hr tablet Take 100 mg by mouth once daily. - liothyronine (CYTOMEL) 25 mcg tablet Take 25 mcg by mouth once daily. - levothyroxine (SYNTHROID) 125 mcg tablet Take 125 mcg by mouth daily before breakfast. - hydrochlorothiazide (HYDRODIURIL, ESIDRIX) 25 mg tablet Take 25 mg by mouth once daily. - fexofenadine HCl (SUSAN ORAL) Take by mouth. I have interviewed and examined the patient. I have reviewed the medical record and/or the pre-anesthesia evaluation, pertinent labs, and test results. This contains updated information obtained within 48 hours of Surgery/Procedure. SIGNATURE: Rafal Cooley MD PATIENT NAME: Rosanne Banerjee DATE: July 27, 2021 TIME: 11:56 AM CSN: [id number] [facility] OPERATIVE NOon 07-27-2021 OPERATIVE NO HNO ID: [id number] Author: Destiny Randall DO Service: Orthopaedic Surgery Author Type: Physician Type: Operative Report Filed: 07/27/2021 1:45 PM Note Text: OPERATIVE/PROCEDURE REPORT LOG ID: [id number] SURGERY/PROCEDURE DATE: 07/27/2021 INCISION/PROCEDURE START TIME: 12:44 PM INCISION CLOSE/PROCEDURE END TIME: SURGEON(S)/PROCEDURALIST(S) AND TOURS CAPTAIN(S): Surgeon(s) and Role: * Destiny Randall DO - Primary Nurse Practitioner: Evelyne Messina APRN.CNP SURGERY/PROCEDURE(S): Right knee medial meniscus root repair, partial medial meniscectomy, chondroplasty, ext synovectomy ANESTHESIA: Choice - Anesthesia Consult SURGERY/PROCEDURE DETAILS: Preop note Patient is a 60-year-old female who injured her knee twisting pain instability of the right knee failed conservative treatment options MRI confirms medial meniscus root tear. Patient also has underlying osteoarthritis. Patient failed conservative treatment options elected proceed with surgical intervention for her right knee. Risk benefits alternatives surgery discussed with patient. Risk include but not limited to blood loss, blood clot, infection, neurovascular mariposa, failure procedure, loss of life and loss of limb. Patient is aware like proceed with right knee arthroscopy repair is indicated Operative note Patient seen examined preoperative holding area. Right leg was marked. Patient brought to the operating room placed supine the operating table. Signed, anesthesia, antibiotics were mister. Right leg was prepped and draped usual sterile technique with a tourniquet around her upper thigh. All bony promises well-padded SCDs placed on her contralateral limb. We marked out our incisions for anterior lateral anteromedial portal placement. Right leg was then elevated segment anterior was raised for pressure of 325 torr based on initial entry of her blood pressure being 202 at this size of her leg. We created an anterior lateral portal with our 11 blade we began our diagnostic arthroscopy. She had grade 3 eburnated changes to her throughout her patellofemoral joint however there were no loose cartilage pieces there were no loose pieces in the medial or lateral joint recesses. We then moved to the anteromedial joint line created anterior medial portal under direct visualization. She had extensive synovitis throughout we then used a combination of a shaver and ablator wand to resect the thickened synovitis that was throughout. We then were able to probe the posterior horn of the medial meniscus and there was an unstable medial meniscus root and she also had some fraying of the mid body. We then inserted a shaver and did debride back the unstable portion of the medial meniscus. We then use our low-profile fast pass for the meniscal root from the Arthrex system and placed 2 fiber links through the posterior horn of the medial meniscus we also had placed a medial cannula at this point in order to not get a tissue bridge. We were then able to drill our tunnel using a flip cutter again this was done in standard technique after made an incision just medial to the patella tendon and dissected down with hemostats down to the bone we then flipped the flip cutter flip cutter and then drilled back about 5 to 7 mm. We then used a passing stitch through the tunnel brought that out the medial cannula then use our 2 stitches that we had placed in the medial meniscal root brought those over and through the tunnel and out the to the tibial side and then sewed these over a button. Please note that during 1 week repaired the so them down to the button we did visualize the meniscal root repair and the knee was in flexion at that point. We had good tension of the medial meniscus root and was a stable repair. We then reinserted probing and stable remnant discussed. Patient had fraying of the lateral meniscus but her lateral femoral condyle was intact she had grade 2 changes of her lateral tibial plateau but markedly decreased joint space. ACL PCL present within the notch. We then gently coplaned some loose pieces of patella femoral as well as the medial femoral condyle chondroplasty in order to prevent any locking of the cartilage cartilage pieces that was asked again to grade 3 changes throughout her entire medial femoral condyle medial tibial plateau patellofemoral joint. We then irrigated the knee with copious nonsterile saline. Portals were closed tourniquet was deflated for total working time of 35 minutes. Sterile dressings Kareem stocking and a hinged knee brace was applied. Patient tolerated procedure well no complications transfer recovery room in stable condition Postoperative note Toe-touch weightbearing right leg Ancef, Zofran, Percocet Call with increased pain numbness tingling further issues redness May 0 to 30 degrees range of motion brace Follow-up in 5 days with Zan Meza for dressing change and brac (more content not included)... Normal [facility] XR Finger - left AP and Late ral and obliqueon 10-26-2020 IMPRESSION: No acute bony finding. Psychology Professor: PSCB Transcribe Date/Time: Oct 26 2020 12:16P Dictated by : IRMA YUAN MD This examination was interpreted and the report reviewed and electronically signed by: IRMA YUAN MD on Oct 26 2020 12:19PM [facility] DIVISION OF RADIOLOGY * * *Final Report* * * DATE OF EXAM: Oct 26 2020 11:29AM [id number] - XR DIGIT 3V FRONTAL/LAT/OBL LT / PROCEDURE REASON: Thumb injury, left, initial encounter * * * * Physician Interpretation * * * * Left thumb HISTORY: 59 years old Clinical information: Thumb injury, left, initial encounter pt states stoved her left thumb getting out of a kyak yesterday TECHNIQUE: Images: XR DIGIT 3V FRONTAL/LAT/OBL LT Comparison: None. RESULT: Findings: No acute fracture or subluxation is evident. There is a 1 to 2 mm nodular density along the posterior lateral aspect of the MCP joint, which appears chronic. DIVISION OF RADIOLOGY Provider, [facility] - 10/26/2020 * * *Final Report* * * DATE OF EXAM: Oct 26 2020 11:29AM WOX [id number] - XR DIGIT 3V FRONTAL/LAT/OBL LT / PROCEDURE REASON: Thumb injury, left, initial encounter * * * * Physician Interpretation * * * * Left thumb HISTORY: 59 years old Clinical information: Thumb injury, left, initial encounter pt states stoved her left thumb getting out of a kyak yesterday TECHNIQUE: Images: XR DIGIT 3V FRONTAL/LAT/OBL LT Comparison: None. RESULT: Findings: No acute fracture or subluxation is evident. There is a 1 to 2 mm nodular density along the posterior lateral aspect of the MCP joint, which appears chronic. IMPRESSION IMPRESSION: No acute bony finding. Psychology Professor: PSCB Transcribe Date/Time: Oct 26 2020 12:16P Dictated by : IRMA YUAN MD This examination was interpreted and the report reviewed and electronically signed by: IRMA YUAN MD on Oct 26 2020 12:19PM EST [facility] Radiology Study observation (narrative) [facility] XR Finger - left AP and Late ral and obliqueOrdered By: [facility]cf Provider on 10-26-2020 [facility] Final Surgical Pathology Rep [facility] 02-20-2020 Final Surgical Pathology Report . Pathology Reports Accession: Collected Date/Time: Received Date/Time: Pathologist: [id number] 02/18/2020 14:41 EDT 02/19/2020 14:41 EDT MD JANES SHEN Final Surgical Pathology Report DIAGNOSIS: DISTAL SIGMOID COLON, BIOPSY: - MIXED TUBULAR ADENOMA AND HYPERPLASTIC POLYP. CLINICAL INFORMATION: SCREENING SPECIMEN: DISTAL SIGMOID POLYP - R/O ADENOMA GROSS DESCRIPTION: Received in formalin, labeled with the patients name, Case #[id number], and distal sigmoid polyp rule out adenoma is 1 smith polypoid shaped tissue fragment measuring 0.3 cm. TS -1 Dictated by DEBRA GUTIERREZ MICROSCOPIC DESCRIPTION: Slides reviewed. Electronically Signed by Pathology Report verified by [facility] Electronically signed by JANES SHEN MD Sign out Date: 02/20/2020 12:52 Performing Lab: [facility], [address] [place] [address] ([place]) Comment on above: Performed By: #### S PFR #### [place] [id number] No Panel Information [facility] Vital Signs Date Time Vital Sign Value Performing Clinician Faci lity 09-23-2024 16:34-0400 Body temperature 98.9 [degF] Dr. Rose Mary Ocasio MD Work Phone: [facility] 09-23-2024 16:34-0400 Diastolic blood pressure 53 mm[Hg] Dr. Rose Mary Ocasio MD Work Phone: [facility] 09-23-2024 16:34-0400 Heart rate 72 /min Dr. Rose Mary Ocasio MD Work Phone: [facility] 09-23-2024 16:34-0400 Respiratory rate 16 /min Dr. Rose Mary Ocasio MD Work Phone: [facility] 09-23-2024 16:34-0400 SaO2% (BldA) [Mass fraction] 93 % Dr. Rose Mary Ocasio MD Work Phone: 4(665)248-644306 [place] [address] 09-23-2024 16:34-0400 Systolic blood pressure 126 mm[Hg] Dr. Rose Mary Ocasio MD Work Phone: 6(624)185-247406 [place] [address] 09-23-2024 11:42-0400 Body height 157.[address] Rose Mary Ocasio MD Work Phone: 8(214)212-411206 [place] [address] 09-23-2024 11:42-0400 Body mass index (BMI) [Ratio] 38.7 kg/m2 Dr. Rose Mary Ocasio MD Work Phone: 7(255)261-513906 [place] [address] 09-23-2024 11:42-0400 Body weight 96.[address] Rose Mary Ocasio MD Work Phone: 4(652)919-103706 [place] [address] 09-18-2024 08:32-0400 Body mass index (BMI) [Ratio] 38.9 kg/m2 Dr. Rose Mary Ocasio MD Work Phone: 6(099)839-578606 [place] [address] 09-18-2024 08:32-0400 Body weight 96.[address] Rose Mary Ocasio MD Work Phone: 8(966)551-743906 [place] [address] 09-13-2024 15:00-0400 Diastolic blood pressure 67 mm[Hg] Dr. Rose Mary Ocasio MD Work Phone: 1(842)742-410706 [place] [address] 09-13-2024 15:00-0400 Heart rate 87 /min Dr. Rose Mary Ocasio MD Work Phone: 7(810)041-938406 [place] [address] 09-13-2024 15:00-0400 Respiratory rate 18 /min Dr. Rose Mary Ocasio MD Work Phone: 8(666)800-317206 [place] [address] 09-13-2024 15:00-0400 SaO2% (BldA) [Mass fraction] 99 % Dr. Rose Mary Ocasio MD Work Phone: [facility] 09-13-2024 15:00-0400 Systolic blood pressure 168 mm[Hg] Dr. Rose Mary Ocasio MD Work Phone: [facility] 09-13-2024 13:06-0400 Body mass index (BMI) [Ratio] 39 kg/m2 Dr. Rose Mary Ocasio MD Work Phone: [facility] 09-13-2024 13:06-0400 Body temperature 97.9 [degF] Dr. Rose Mary Ocasio MD Work Phone: [facility] 09-13-2024 13:06-0400 Body weight 96.[address] Rose Mary Ocasio MD Work Phone: [facility] 02-21-2023 09:29-0400 Body height 157.[address] Rose Mary Ocasio Work Phone: [facility] 04-15-2022 11:11-0500 Body height 157.5 cm Gaby Valadez PA-C Work Phone: [facility] 04-15-2022 11:11-0500 Body weight 123.83 kg Gaby Valadez PA-C Work Phone: [facility] Encounters Encounter Date Encounter Type Care Provider Facility Start: 10-23-2024 ambulatory Augustine Pace Facility:[facility] Start: 10-21-2024 ambulatory Augustine Pace Facility:[facility] Start: 10-14-2024 End: 10-14-[address] Rose Mary Ocasio MD Work Phone: [facility] Work Phone: Start: 10-14-2024 End: 10-14-[address] Augustine Pace MD -[facility] [place] Work Phone: Start: 10-14-[address] Branden Garcia DO -Occupational Therapy Work Phone: Start: 10-14-2024 End: 10-14-2024 ambulatory Augustine Pace Facility:[facility] Start: 10-11-2024 Encounter for other preprocedural examination [facility] Start: 10-09-2024 End: 10-09-[address] Brian Garcia DO -[facility] Work Phone: Start: 10-09-2024 End: 10-09-[address] Rose Mary Ocasio MD Work Phone: [facility] Work Phone: Start: 09-30-2024 End: 09-30-[address] Brian Garcia DO -[facility] Work Phone: Start: 09-30-2024 End: 09-30-[address] Rose Mary Ocasio MD Work Phone: [facility] Work Phone: Start: 09-23-2024 ambulatory [facility] Start: 09-23-2024 Non-patient / Non-visit Dr. Nancy Garcia DO [facility] Start: 09-23-2024 End: 09-23-2024 Admission to same day surgery center Dr. Brian Garcia DO -[facility] Start: 09-23-2024 End: 09-23-[address] Rose Mary Ocasio MD Work Phone: [facility] Work Phone: Start: 09-19-2024 End: 09-19-2024 ambulatory Jad Teixeira Facility:[facility] Start: 09-19-2024 End: 09-19-2024 Non-patient / Non-visit Dr. Jad Teixeira MD -[facility] Work Phone: Start: 09-18-2024 End: 09-18-2024 ambulatory [facility] Start: 09-18-2024 End: 09-18-[address] Brian Garcia DO -[facility] Work Phone: Start: 09-13-2024 End: 09-13-2024 Emergency department patient visit Dr. Ronn Mcgregor MD -Emergency Department Work Phone: Start: 05-10-2024 End: 05-10-2024 ambulatory Rose Mary Ocasio Facility:[facility] Start: 04-08-2024 End: 04-08-2024 ambulatory Tamara Del Cid [facility] Facility:[facility] Start: 04-03-2024 ambulatory Tamara Del Cid [facility] Facili ty:[facility] Start: 04-03-2024 End: 04-03-2024 ambulatory [place] Mera Facility:[facility] Start: 03-20-2024 Encounter for genera l adult medical examination without abnormal findings Rose Mary Ocasio [facility] Start: 02-26-2024 End: 02-26-2024 ambulatory Rose Mary Ocasio Facility:[facility] Start: 02-23-2024 End: 02-23-2024 ambulatory Rose Mary Ocasio Facility:[facility] Start: 02-21-2023 End: 02-21-[address] Rose Mary Ocasio Work Phone: [facility] Work Phone: Start: 02-21-2023 End: 02-21-[address] Rose Mary Ocasio Work Phone: [facility]-Outpatient Bone Densitometry Work Phone: Start: 01-31-2023 Non-patient / Non-visit Dr. Barrett Ocasio Work Phone: [facility] Start: 01-31-2023 End: 01-31-[address] Rose Mary Ocasio Work Phone: [facility] Work Phone: Start: 01-31-2023 End: 01-31-[address] Rose Mary Ocasio Work Phone: [facility]-Cardiovascula r Services Work Phone: Start: 12-26-2022 End: 12-26-[address] Rose Mary Ocasio Work Phone: [facility] Start: 12-23-2022 End: 12-23-2022 ambulatory DESTINY RANDALL Facility:[facility] Start: 12-23-2022 End: 12-23-2022 Patient encounter procedure Gaby Goode PA-C Work Phone: Orthopaedics Comment on above: Primary osteoarthrit is of right knee (Primary Dx) Start: 12-16-2022 End: 12-16-2022 ambulatory GABY NERISSA Facility:[facility] Start: 12-16-2022 End: 12-16-2022 Patient encounter procedure Gaby Goode PA-C Work Phone: Orthopaedics Comment on above: Primary osteoarthrit is of right knee (Primary Dx) Start: 12-09-2022 End: 12-09-2022 ambulatory DESTINY RANDALL Facility:[facility] Start: 12-09-2022 End: 12-09-2022 Patient encounter procedure Destiny Randall DO Work Phone: Orthopaedics Comment on above: S/P arthroscopic cash prisca of right knee (Primary Dx); Primary osteoarthritis of right knee Start: 04-29-2022 End: 04-29-2022 ambulatory GABY NERISSA Facility:[facility] Start: 04-27-2022 End: 04-27-2022 ambulatory [facility] Work Phone: Start: 04-27-2022 End: 04-27-2022 Discharged Recurring [facility]-Physical Therapy Start: 04-22-2022 End: 04-22-2022 ambulatory ROSE MARY OCASIO Facility:[facility] Start: 04-22-2022 End: 04-22-2022 Patient encounter procedure Destiny Randall DO Work Phone: Orthopaedics Comment on above: Primary osteoarthrit is of right knee (Primary Dx) Start: 04-15-2022 End: 04-15-2022 ambulatory ROSE MARY OCASIO Facility:[facility] Start: 04-15-2022 End: 04-15-2022 Patient encounter procedure Gaby Valadez PA-C Work Phone: Orthopaedics Comment on above: Primary osteoarthrit is of right knee (Primary Dx) Start: 03-24-2022 Telephone encounter Destiny Randall DO Work Phone: Orthopaedics Comment on above: Appointment Conflict Start: 03-09-2022 Registered Recurring [facility]-Physical Therapy Start: 03-07-2022 End: 03-07-2022 ambulatory [facility] Work Phone: Start: 03-07-2022 End: 03-07-2022 Discharged Recurring [facility]-Physical Therapy Start: 03-07-2022 Registered Recurring [facility]-Physical Therapy Start: 03-02-2022 End: 03-02-2022 ambulatory [facility] Work Phone: Start: 03-02-2022 End: 03-02-2022 Patient encounter procedure [facility] Start: 02-24-2022 End: 02-24-2022 ambulatory ROSE MARY OCASIO Facility:[facility] Start: 02-15-2022 Registered Recurring [facility]-Physical Therapy Start: 02-15-2022 End: 02-15-2022 ambulatory [facility] Work Phone: Start: 02-15-2022 End: 02-15-2022 Patient encounter procedure [facility]-Outpatient Breast Imaging Start: 02-02-2022 Telephone encounter Destiny Randall DO Work Phone: Orthopaedics Comment on above: Appointment Start: 01-06-2022 End: 01-06-2022 ambulatory ROSE MARY OCASIO Facility:[facility] Start: 01-06-2022 End: 01-06-2022 Patient encounter procedure Destiny Randall DO Work Phone: Orthopaedics Comment on above: Pes anserinus bursit is of right knee (Primary Dx) Start: 11-11-2021 Registered Recurring [facility]-Physical Therapy Start: 10-01-2021 End: 10-01-2021 Patient encounter procedure Destiny Mendozazenaidaemmett DO Work Phone: Orthopaedics Comment on above: Chronic pain of righ t knee (Primary Dx); Tear of medial meniscus of right knee, current, unspecified tear type, subsequent encounter Start: 09-08-2021 End: 09-08-2021 Patient encounter procedure Alberto Caldwell PA-C Work Phone: Orthopaedics Comment on above: S/P arthroscopic cash prisca of right knee (Primary Dx) Start: 08-11-2021 End: 08-11-2021 Patient encounter procedure Destiny Mendozazenaidaemmett DO Work Phone: Orthopaedics Comment on above: Other tear of medial meniscus of right knee as current injury, initial encounter (Primary Dx) Start: 10-26-2020 End: 10-26-2020 Subsequent hospital visit by physician [employer] [facility] Work Phone: Radiology Comment on above: Thumb injury, left, initial encounter [S69.92XA] Start: 08-07-2020 End: 08-07-2020 Patient encounter procedure PHYSICIAN ERIKA [facility] Start: 08-07-2020 End: 08-07-2020 Patient encounter procedure Nguyễn Segura Work Phone: [facility] Physician [facility] Start: 07-16-2020 End: 07-16-2020 Patient encounter procedure NGUYỄN SEGURA [facility] Start: 07-16-2020 End: 07-16-2020 Patient encounter procedure Nguyễn Segura [facility] Procedures Date Procedure Procedure Detail Performing Clinician Start: 10-14-2024 Calcium measurement, urine Dr. Rose Mary Ocasio MD Work Phone: Start: 10-14-2024 Osmolality measurement, serum Dr. Rose Mary Ocasio MD Work Phone: Start: 09-23-2024 Open reduction of fracture with internal fixation Dr. Rose Mary Ocasio MD Work Phone: Start: 09-23-[address] Rose Mary Ocasio MD Work Phone: Start: 09-23-2024 Plain x-ray of wrist Dr. Rose Mary Ocasio MD Work Phone: Start: 09-13-2024 End: 09-13-2024 Plain x-ray of wrist Dr. Rose Mary Ocasio MD Work Phone: Start: 12-23-2022 Arthrocentesis aspir&/inj major jt/bursa w/o us Gaby Goode PA-C Work Phone: Start: 12-16-2022 Arthrocentesis aspir&/inj major jt/bursa w/o us Gaby CANCHOLA-C Work Phone: Start: 12-09-2022 Arthrocentesis aspir&/inj major jt/bursa w/o us Destiny Randall DO Work Phone: Start: 04-26-2022 Arthrocentesis aspir&/inj major jt/bursa w/o us Destiny Randall DO Work Phone: Start: 04-15-2022 Arthrocentesis aspir&/inj major jt/bursa w/o us Gaby CANCHOLA-C Work Phone: Start: 02-15-2022 Screening mammography Start: 01-06-2022 Injection 1 tendon sheath/ligament aponeurosis Destiny Randall DO Work Phone: Start: 10-26-2020 Radex fingr minimum 2 views Isabell Vázquez APRN.CNP Work Phone: Start: 05-18-2015 Adult depression screening assessment Destiny Randall DO Work Phone: H/O: hysterectomy S/P hysterectomy History of operative procedure on knee S/P arthroscopic surgery of right knee Alberto Caldwell PA-C Work Phone: History of operative procedure on knee S/P arthroscopic surgery of right knee Destiny Randall DO Work Phone: Plan of Treatment Date Care Activity Detail Author Start: 09-30-2024 Patient referral [facility] Work Phone: Start: 09-23-2024 Patient discharge [facility] Start: 09-23-2024 Application of ice collar, cap or bag [facility] Start: 09-23-2024 Catheterization of vein [facility] Start: 09-23-2024 Elevation of affected extremity [facility] Start: 09-23-2024 Following clinical pathway protocol [facility] Start: 09-23-2024 Procedure discontinued [facility] Start: 09-23-2024 Taking patient vital signs [facility] Start: 09-23-2024 Vital signs measurements [facility] Start: 09-23-2024 [facility] Start: 09-23-2024 Anes arthrs/endscpy dstl radius ulna/wrist/hand ANESTH LOWER ARM SURGERY [facility] Start: 09-23-2024 Injection aa&/strd axillary nerve NJX AA&/STRD AX NERVE IMG [facility] Start: 09-23-2024 Optx dstl radl i-artic fx/epiphysl sep [address] XART FX/EPI SEP2 [facility] Start: 09-23-2024 Plain x-ray of wrist Wrist 2 Views [facility] Start: 09-23-2024 XR Wrist 2 Views [facility] Start: 09-23-2024 Medication education [facility] Start: 09-19-2024 Electrocardiographic procedure [facility] Start: 09-13-2024 [facility] Start: 09-13-2024 Application short arm splint forearm-hand static APPLY FOREARM SPLINT [facility] Start: 01-14-2024 Covid-19 Vaccine ( season) Covid-19 Vaccine ( season) [facility] Start: 01-14-2024 Influenza vaccination Influenza Vaccine (#1) [facility] Start: 12-06-2023 Advance Directive Discussion Advance Directive Discussion [facility] Start: 12-06-2023 Pneumococcal Vaccine: 65+ (1 of 1 - PCV) Pneumococcal Vaccine: 65+ (1 of 1 - PCV) [facility] Start: 12-06-2023 Screening for osteoporosis Bone Density Screening [facility] Start: 02-21-2023 Dual energy X-ray absorptiometry Dexa Bone Density Study [facility] Start: 02-21-2023 Screening mammography SCRN MAMM (CAD)W/ADITI BILAT [facility] Start: 01-13-2023 Influenza vaccination [facility] Start: 05-15-2022 DEPRESSION ASSESSMENT DEPRESSION ASSESSMENT [facility] Start: 01-13-2022 Influenza vaccination [facility] Start: 05-15-2021 DEPRESSION ASSESSMENT DEPRESSION ASSESSMENT [facility] Start: 01-13-2021 Influenza vaccination INFLUENZA (#1) [facility] Start: 08-07-2020 End: 08-07-2020 Immunization 08/07/2020 Immunization Primary Care Nguyễn Segura, ERP DEVELOPER [address] [place] [address] [phone] [facility] [place] Covid Vaccine [facility] Start: 08-06-2020 COVID-19 Vaccine (2 of 2 - Pfizer series) COVID-19 Vaccine (2 of 2 - Pfizer series) [facility] Start: 01-14-2020 Influenza vaccination given Sequential Influenza Vaccine (#1) [facility] Start: 02-26-2019 Administration of herpes zoster vaccine Zoster Vaccines (2 of 2) [facility] Start: 02-26-2019 Shingrix Vaccine (2 of 2) Shingrix Vaccine (2 of 2) [facility] Start: 2018 RSV Vaccine (1 - Risk 60-74 years 1-dose series) RSV Vaccine (1 - Risk 60-74 years 1-dose series) [facility] Start: 07-25-2017 DIABETES SCREEN DIABETES SCREEN [facility] Start: 07-25-2017 Diabetes Screening Diabetes Screening [facility] Start: 05-18-2016 Adult depression screening assessment DEPRESSION SCREENING [facility] Start: 2008 Administration of herpes zoster vaccine Zoster Vaccines (1 of 2) [facility] Start: 2008 Screening for malignant neoplasm of colon [facility] Start: 2008 SHINGRIX VACCINE (1 of 2) SHINGRIX VACCINE (1 of 2) [facility] Start: 12-06-2003 COLOGUARD (FIT-DNA) COLOGUARD (FIT-DNA) [facility] Start: 12-06-2003 Colonoscopy COLONOSCOPY [facility] Start: 12-06-2003 COLORECTAL CANCER SCREENING COLORECTAL CANCER SCREENING [facility] Start: 12-06-[address] COLONOGRAPHY [facility] Start: 12-06-2003 FECAL OCCULT BLOOD FECAL OCCULT BLOOD [facility] Start: 12-06-2003 Lipid panel Lipid Screening [facility] Start: 12-06-2003 LIPID SCREEN LIPID SCREEN [facility] Start: 12-06-2003 Screening for malignant neoplasm of colon [facility] Start: 12-06-2003 SIGMOIDOSCOPY SIGMOIDOSCOPY [facility] Start: 1998 Mammography MAMMOGRAM [facility] Start: 1998 Screening for malignant neoplasm of breast Mammogram Screening [facility] Start: 1988 HPV TESTING HPV TESTING [facility] Start: 12-06-1979 PAP TESTING PAP TESTING [facility] Start: 1977 Urine microalbumin profile [facility] Start: 1976 ANNUAL PCP TEAM CHRONIC DISEASE VISIT ANNUAL PCP TEAM CHRONIC DISEASE VISIT [facility] Start: 1976 Anxiety Screening Anxiety Screening [facility] Start: 1976 BP CONTROLLED (<130/80) BP CONTROLLED (<130/80) [facility] Start: 1976 Depression Screening Depression Screening [facility] Start: 1976 Hepatitis C antibody, confirmatory test Hepatitis C Screening [facility] Start: 1976 HEPATITIS C SCREENING HEPATITIS C SCREENING [facility] Start: 1976 Hepatitis C screening Hepatitis C Screening [facility] Start: 1976 HIV SCREENING HIV SCREENING [facility] Start: 1976 HIV screening HIV Screening [facility] Start: 1973 HIV screening HIV Screening [facility] Start: 1970 Adolescent depression screening assessment Depression Screening (PHQ9) [facility] Start: 1961 History and physical examination, annual for health maintenance Wellness Visit [facility] Start: 1958 Screening for malignant neoplasm of cervix Pap Smear [facility] Start: 1958 Screening mammography Mammogram [facility] Start: 1958 Tetanus vaccination Tetanus: Every 10yrs [facility] Application of [facility] Patient Education ED Fadi Omalley, General [facility] Work Phone: Patient referral [facility] Work Phone: [facility] Immunizations Immunization Date Immunization Notes Care Provider Bert reid 08-07-2020 Pfizer SARS-CoV-2 Vaccination Jonathan yip [facility] 07-16-2020 Pfizer SARS-CoV-2 Vaccination Magdy Segura [facility] Payers Date Payer Category Payer Self-pay [id number] 2023 Private Health Insurance [facility] [id number] 2020 Unknown [employer] PPO [id number] 2020-Present [phone] [address] [place] [address] PPO [id number] 2020 Unknown [id number] 2020 Unknown [employer] PPO [id number] 2020-Present [phone] [address] [place] [address] PPO [id number] 2016 Unknown [id number] Private Health Insurance [employer] [id number] Unknown [id number] Unknown [id number] 62 Unknown [id number] 2.16.840.1.701070.3.579.2.4 62 Unknown [id number] 2.16.840.1.031373.3.579.2.4 62 Unknown [id number] 2.16.840.1.069583.3.579.2.4 62 Unknown [id number] 2.16.840.1.628474.3.579.2.4 62 Unknown [id number] 2.16.840.1.804968.3.579.2.4 62 Unknown [id number] 2.16.840.1.976928.3.579.2.4 62 Unknown [id number] 2.16.840.1.747074.3.579.2.4 62 Unknown [id number] 2.16.840.1.934489.3.579.2.4 62 Unknown [id number] 2.16.840.1.478748.3.579.2.4 62 Unknown [id number] 2.16.840.1.660602.3.579.2.4 62 Unknown [id number] 2.16.840.1.972572.3.579.2.4 62 Unknown [id number] 2.16.840.1.125706.3.579.2.4 62 Unknown [id number] 2.16.840.1.708041.3.579.2.4 62 Unknown [id number] 2.16.840.1.535377.3.579.2.4 62 Unknown [id number] 2.16.840.1.558672.3.579.2.4 62 Unknown [id number] 2.16.840.1.191959.3.579.2.4 62 Social History Date Type Detail Facility Tobacco smoking status NVIS Unknown if ever smoked [facility] Sex Assigned At Not on file [facility] Start: 08-01-2021 End: 02-24-2022 Exposure to SARS-CoV-2 (event) Not sure [facility] Start: 06-16-2014 End: 09-19-2024 Tobacco smoking status NHIS Never smoked tobacco [facility] Work Phone: Start: 06-16-2014 End: 04-23-2015 Tobacco use and exposure Smokeless tobacco non-user [facility] Work Phone: Start: 10-26-2020 End: 08-11-2021 Alcohol intake Current drinker of alcohol (finding) [facility] Start: 07-25-2014 History SDOH Alcohol Comment RARELY [facility] Start: 1960 Sex Assigned At Female [facility] Start: 05-17-2021 End: 09-30-2022 Tobacco smoking status NHIS Unknown if ever smoked [facility] Start: 10-26-2020 End: 12-09-2022 History of Social function [facility] Start: 10-26-2020 End: 12-09-2022 Tobacco use panel [facility] National Score (1-100), lower number is lower risk 72 [facility] Start: 07-16-2021 Gender identity Identifies as female gender (finding) [facility] NEGATED: Highlighted row Not [facility] Medical Equipment Procedure Code Equipment Code Equipment Origin al Text Equipment Identifier Dates ORIF, fracture, wrist 2.4 locking screwq FDA Start: 09-23-2024 ORIF, fracture, wrist 2.4 locking screwq FDA Start: 09-23-2024 ORIF, fracture, wrist 2.4 locking screwq FDA Start: 09-23-2024 ORIF, fracture, wrist 2.4 mm volar radius plate FDA Start: 09-23-2024 ORIF, fracture, wrist 2.4mm locking screw FDA Start: 09-23-2024 ORIF, fracture, wrist 2.4mm locking screw FDA Start: 09-23-2024 ORIF, fracture, wrist 2.7 cortex screw FDA Start: 09-23-2024 ORIF, fracture, wrist 2.7 cortex screw FDA Start: 09-23-2024 ORIF, fracture, wrist 2.7mm cortex screw FDA Start: 09-23-2024 ORIF, fracture, wrist 2.4 locking screwq FDA Start: 09-23-2024 ORIF, fracture, wrist 2.4 locking screwq FDA Start: 09-23-2024 ORIF, fracture, wrist 2.4 locking screwq FDA Start: 09-23-2024 ORIF, fracture, wrist 2.4 mm volar radius plate FDA Start: 09-23-2024 ORIF, fracture, wrist 2.4mm locking screw FDA Start: 09-23-2024 ORIF, fracture, wrist 2.4mm locking screw FDA Start: 09-23-2024 ORIF, fracture, wrist 2.7 cortex screw FDA Start: 09-23-2024 ORIF, fracture, wrist 2.7 cortex screw FDA Start: 09-23-2024 ORIF, fracture, wrist 2.7mm cortex screw FDA Start: 09-23-2024 ORIF, fracture, wrist 2.4 locking screwq FDA Start: 09-23-2024 ORIF, fracture, wrist 2.4 locking screwq FDA Start: 09-23-2024 ORIF, fracture, wrist 2.4 locking screwq FDA Start: 09-23-2024 ORIF, fracture, wrist 2.4 mm volar radius plate FDA Start: 09-23-2024 ORIF, fracture, wrist 2.4mm locking screw FDA Start: 09-23-2024 ORIF, fracture, wrist 2.4mm locking screw FDA Start: 09-23-2024 ORIF, fracture, wrist 2.7 cortex screw FDA Start: 09-23-2024 ORIF, fracture, wrist 2.7 cortex screw FDA Start: 09-23-2024 ORIF, fracture, wrist 2.7mm cortex screw FDA Start: 09-23-2024 [id number] Implant - [id number] Start: 07-27-2021 Comment on above: Description: Suture tape Button Tightrope 14mm Round Fixation Attachable Acl - [id number] Start: 07-27-2021 Comment on above: Description: Tightro pe round button Fiberwire Braide d Polyblend Suture [id number] Start: 07-27-2021 Goals Date Patient Goal Desired Activity /State Mental Status Date Assessment Result Facility 09-23-2024 Cognitive function Voice/Name;Touch/Jesse pineda [facility] Work Phone: Clinical Notes 10-26-2020 to 09-30-2024 Note Date & Type Note Facility 09-30-2024 Progress note [facility] 09-30-2024 Progress note Note Date/Time September 30, 2024 11:13am [facility] [address] [place] [address] OFFICE VISIT Date of Service: 09/30/24 MR#: [id number] Acct: [id number] Name: ROSANNE BANERJEE Rep #: [id number] : 1960 Provider: Dr. Azeem Garcia, DO Age/Sex: 63/F Location: [facility] Status: Signed Intake Vital Signs 09/18/24 08:32 09/23/24 11:42 Height 5 ft 2 in 5 ft 2 in Intake Visit Reasons: LEFT WRIST Chief Complaint: 1 week post-op Accompanied by: Self Is patient in pain?: No Allergies ramipril (From Altace) Allergy (Verified 09/30/24 10:09) Swelling ARB-Angiotensin Receptor Antagonist Adverse Reaction (Severe, Verified 09/30/24 10:09) Angioedema Medications ?Medication ?Instructions ?Recorded ?Confirmed ?Type levothyroxine 125 mcg tablet 100 mcg PO DAILY 03/18/15 09/30/24 History liothyronine 25 mcg tablet 25 mcg PO DAILY 03/18/15 History cholecalciferol (vitamin D3) 50 2,000 unit PO DAILY 09/30/24 History mcg (2,000 unit) capsule (Vitamin D3) melatonin 3 mg capsule 3 mg PO HS PRN sleep 3 09/30/24 History omega-3 fatty acids 1,000 mg 1,000 mg PO DAILY 3 09/30/24 History capsule Held on 09/23/24. Instructions: Resume on 09/30/24. metoprolol succinate 25 mg 25 mg PO DAILY #90 tabs 09/30/24 Rx tablet,extended release 24 hr amlodipine 10 mg tablet 10 mg PO QHS 09/13/24 History hydrochlorothiazide 12.5 mg tablet 12.5 mg PO DAILY 09/30/24 History turmeric 400 mg PO DAILY 09/13/24 History Held on 09/23/24. Instructions: Resume on 09/30/24. acetaminophen 325 mg tablet 325 mg PO ONCE PRN pain 09/30/24 History (Tylenol) cephalexin 500 mg capsule 1,000 mg (2 x 500 mg) PO Q8H #4 09/23/24 09/30/24 Rx caps Have you fallen in the past year?: Yes PFSH Medical History Wears contact lenses Wears glasses Thyroid disease History of edema Non-smoker History of stress test Heart murmur History of echocardiogram Cardiology follow-up encounter Essential (primary) hypertension Hyperlipidemia Postmenopausal bleeding Surgical History History of esophagogastroduodenoscopy (EGD) History of colonoscopy History of repair of right rotator cuff History of medial meniscus repair of right knee History of ankle surgery History of foot surgery S/P hysterectomy (~2017) Family History Mother Hypertension CVA (cerebral vascular accident) Diabetes Father Hypertension Cancer Grandmother CAD (coronary artery disease) Social History Smoking Status: Never smoker alcohol intake: current substance use type: does not use HPI LEFT WRIST Details: This documentation accurately reflects the service provided and the decisions made by me, Dr. Brian Garcia, DO 09/30/24 0758. Part of today?s visit was documented by Hailey Chapin ATC, acting as scribe. ROSANNE BANERJEE is a 63 year old F here today for 1 week postop left wrist ORIF. Patient denies any pain today. She has not been taking the oxycodone that was prescribed after surgery. Patient states she was mostly taking Tylenol but has not taken anything since morning. Ortho Exam General General: Yes no acute distress and Yes well groomed Neurologic: Yes alert and Yes oriented x3 Psychologic: Yes reasonable and appropriate Left Wrist/Hand Skin/Wound: Yes healing WRIST: stiffness present particularly with supination and extension of the wrist her incision is well-approximated with no signs of infection her sutures are in place she has neurovascular intact compartments soft Supplemental Info 09/23/2024 ORIF left distal radius: Dr. Garcia 09/13/2024 x-ray Left wrist: left wrist pre and postreduction x-rays intra-articular impacted dorsally angulated distal radius fracture prereduction postreduction anatomic is improved however there is some residual tilt to the articular surface dorsal tilt to articular surface 11 degrees. Coding Level of Care Code Global Post Op Diagnoses Orthopedic aftercare Z47.89 Assessment and Plan Assessment and Plan (1) Orthopedic aftercare: Status: Acute Orders: Referrals Occupational Therapy Referral S52.872O - Other intraarticular fracture of lower end of left radius, initial encounter for closed fracture Plan Removed splint today but left the sutures in. Sutures will be removed next week at her 2 week post-op appointment. Explained she really needs to focus on her range of motion every day. She should be doing range of motion 3 times a day at least 15 minutes a day. Recommend she get into occupational therapy to work on range of motion. She should not lift anything more than 1 pound with her arm. She should wash the incision daily with antibacterial soap and warm water and can keep it uncovered if she is in a clean area away from her dog. If she is around the dog and not a clean area she should keep the incision covered to keepit clean. Recommend she take Ibuprofen/Aleve for pain and inflammation prior to going to occupational therapy in case she does have an increase in pain. Follow up in 1 week for 2 week post-op to remove sutures or sooner if pain, swelling, numbness or associated symptoms, or concerns develop. All questions answered. Patient in agreement of plan. Clinical Quality Measures Falls Risk Screening/Assistive Devices Have you fallen in the past year?: Yes 09/30/24 6669 <Electronically signed by Brian abraham DO> Date _ Brian Garcia DO Cosigner Signature: Date (if applicable) CC: ~ [facility] Work Phone: 1(760) 616-444705-12-2025 Discharge summary Author Brian Garcia [facility] Note Date/Time September 23, 2024 2:53p m [facility] Medical Records Department [address] [place] [address] Instructions for Home/Discharge Instructions 09/23/24 1448 MR#: [id number] Acct: [id number] Name: ROSANNE BANERJEE Rep #:[id number] : 1960 63 From: Brian Garcia DO PCP: Dr. Augustine Pace MD Status:[facility] Discharge Instructions Diet Discharge Diet: No restrictions Activity Keep extremity elevated above heart level: Operative Extremity Dressing / Incision Additional Dressing/Incision Instructions:: Strict elevation of operative extremity above heart for next 72 hours. Ice 15 minutes on 15 minutes off. Continue ice and elevation for 7 days postoperatively. Encourage finger range of motion. No lifting pushing or pulling more than a coffee cup. Must keep splint on clean and dry. Follow-up in office in 1 week Follow Up Care Please Follow Up With: Brian Garcia DO When: 2 weeks Test Results: Test results from this visit will be discussed in further detail at your follow- up appointment, if applicable. Discharge Plan Admission Primary Reason for Your Visit: Left distal radius ORIF Attending Provider: Brian Garcia Primary Care Provider: Augustine Pace Instructions Print Language: Serbian Discharge Orders/Prescriptions Prescriptions: New cephalexin 500 mg capsule 1,000 mg PO Q8H Qty: 4 0RF Rx Instructions: Take 2 tabs before you go to bed and 2 tabs after 5 AM morning after surgery when you wake up oxycodone 5 mg tablet 5 - 10 mg PO Q4H PRN (Reason: pain) 5 Days Qty: 20 0RF Continued melatonin 3 mg capsule 3 mg PO HS PRN (Reason: sleep) Patient Comments: PT STATES SHE TAKES A COMBINATION SUPPLEMENT THAT CONTAINS BOTH MELATONIN ANDMAGNESIUM. acetaminophen [Tylenol] 325 mg tablet 325 mg PO ONCE PRN (Reason: pain) liothyronine 25 MCG tablet 25 mcg PO DAILY levothyroxine 125 MCG tablet 100 mcg PO DAILY cholecalciferol (vitamin D3) [Vitamin D3] 2,000 UNIT capsule 2,000 unit PO DAILY amlodipine 10 mg tablet 10 mg PO QHS hydrochlorothiazide 12.5 mg tablet 12.5 mg PO DAILY metoprolol succinate 25 mg tablet extended release 24 hr 25 mg PO DAILY Qty: 90 3RF Held omega-3 fatty acids 1,000 mg capsule 1,000 mg PO DAILY Hold Instructions: Resume on 09/30/24. turmeric 400 mg PO DAILY Hold Instructions: Resume on 09/30/24. Other Ambulatory Orders: 12 Lead EKG (Routine) Location: None Selected Ordered By: Dr. Ramsey Melgoza Referrals / Follow Up: Augustine Pace MD [Primary Care Provider] - Disposition Disposition (needs filled in before D/C Order can be placed): Home, Self Care 09/23/241452<Electronically signed by Brian Garcia DO>Brian Garcia DO CC: Dr. Augustine Pace MD ~ Signed [facility] Work Phone: 1(385) 834-612205-12-2025 Consult note Author Kuldeepjeremy Mckenna [facility] Note Date/Time September 23, 2024 2:51p [facility] Medical Records Department [address] [place] [id number] Anesthesia Postop Eval I 09/23/24 145 MR#: [id number] Acct: [id number] Name: ROSANNE BANERJEE Rep #:[id number] : 1960 63 From: Kuldeep Poon RNA PCP: Dr. Augustine Pace MD Status:[facility] Y Race: C Location: [place] [address] Anesthesia: Postop Eval I Current Vital Signs Temperature: 98.8 F Pulse Rate: 68 Blood Pressure: 138/74 Respiratory Rate: 22 Pulse Ox: 97 Oxygen Delivery Method: Room Air Assessment Airway patent: Yes Spontaneous unlabored respirations: Yes Mental status: Awake and Calm nausea: No Vomiting: No Anesthesia Complication: No Fluid Hydration Crystalloid volume administer (ml): 800 Total IV fluid infused: 800 Progress Note Anesthesia document: Postop Eval 1 completed: Yes 09/23/241450 <Electronically signed by Kuldeep Mckenna AS400 CONSULTANT> Date _ Kuldeep Pizanoigner Signature: Date CC: ~ Signed [facility] Work Phone: 1(983) 447-214605-12-2025 History and physical note Author Brian Garcia [facility] Note Date/Time September 23, 2024 1:09p m [facility] Medical Records Department [address] [place] [id number] History & Physical Exam 09/23/24 1308 MR#: [id number] Acct: [id number] Name: ROSANNE BANERJEE Rep #:[id number] : 1960 63 From: Brian Garcia DO PCP: Dr. Augustine Pace MD Status:[facility] Location: [place] [address] History and Physical Date of Admission: 09/23/24 [facility] [address] [place] [address] OFFICE VISIT Date of Service: 09/18/24 MR#: [id number] Acct: [id number] Name: ROSANNE BANERJEE Rep #: [id number] : 1960 Provider: Dr. Brian Garcia DO Age/Sex: 63/F Location: [facility] Status: Signed Intake Vital Signs 09/13/2512:06 09/13/2513:27 09/19/2507:32 Height 5 ft 2 in 5 ft 2 in 5 ft 2 in Weight: 213 lb BMI 38.9 Intake Visit Reasons: LEFT WRIST Chief Complaint: Left wrist Accompanied by: Self Is patient in pain?: No Allergies ramipril (From Altace) Allergy (Verified 09/18/24 08:36) SwellingARB-Angiotensin Receptor Antagonist Adverse Reaction (Severe, Verified 09/18/24 08:36) Angioedema Medications ?Medication ?Instructions ?Recorded ?Confirmed ?Type levothyroxine 125 mcg tablet 125 mcg PO DAILY 03/18/15 09/18/24 Histo ry liothyronine 25 mcg tablet 25 mcg PO DAILY 03/18/15 09/18/24 Histor y cholecalciferol (vitamin D3) 50 2,000 unit PO DAILY 04/13/18 09/18/24 Hi story mcg (2,000 unit) capsule (Vitamin D3) fexofenadine 180 mg tablet 180 mg PO DAILY PRN allergy 03/27/2312/06 History symptoms fluticasone propionate 50 2 spray intranasal DAILY PRN 03/27/23 History mcg/actuation nasal allergy symptoms spray,suspension melatonin 3 mg capsule 3 mg PO HS PRN sleep 03/27/23 09/18/24 H istory omega-3 fatty acids 1,000 mg 1,000 mg PO DAILY 03/27/23 09/18/24 Hist ory capsule metoprolol succinate 25 mg 25 mg PO DAILY #90 tabs 05/27/24 5 Rx tablet,extended release 24 hr amlodipine 10 mg tablet 10 mg PO QHS 09/13/24 09/18/24 History hydrochlorothiazide 12.5 mg tablet 12.5 mg PO DAILY 09/13/24 09/18/24 Histo ry turmeric PO DAILY 09/13/24 09/18/24 History acetaminophen 325 mg tablet 325 mg PO ONCE PRN 09/18/24 09/18/24 His tory (Tylenol) Have you fallen in the past year?: Yes [facility] Medical History Essential (primary) hypertension Hyperlipidemia Postmenopausal bleeding Surgical History S/P hysterectomy Family History Mother Hypertension CVA (cerebral vascular accident) DiabetesFather Hypertension CancerGrandmother CAD (coronary artery disease) Social History Smoking Status: Never smoker alcohol intake: current substance use type: does not use HPI LEFT WRIST Details: This documentation accurately reflects the service provided and the decisions made by me, Dr. Brian Garcia, DO 09/18/24 0754. Part of today?s visit was documented by Mercy Carlisle MA, acting as scribe. ROSANNE BANERJEE is a 63 year old F with a medical history significant for but not limited to aortic stenosis, hypertension, hyperlipidemia, bradycardia, hypothyroidism, here today for ER follow-up 09/13/2024 left wrist fracture status post ground-level fall walking her dog. She did have a hematoma block and a closed reduction and splinting from the emergency room which she felt was very tight and causing her numbness into her mostly in index and middle finger but significant pain on her thumb. She states they did redo it once but it was not much better since. She is right-hand dominant, patient denies any smoking or drug use. Denies any previous injury to this hand/arm. Ortho Exam General General: Yes no acute distress and Yes well groomed Neurologic: Yes alert and Yes oriented x3 Psychologic: Yes reasonable and appropriate Right Wrist/Hand Skin/Wound: Yes Swelling and Yes Ecchymosis Left Wrist/Hand Date of injury: 09/13/24 Skin/Wound: Yes CDI, Yes Swelling, Yes Ecchymosis, Yes capillary refill normal and No erythema WRIST: She does have some volar ecchymosis there was a Band-Aid on the dorsum of her wrist from the hematoma block that was given in the emergency room. Her compartments are soft her swelling is controlled she does have numbness in the fingers however this is much improved after splint was removed but did have someresidual in the index finger. She has intact sensation light touch and can wiggle her digits she is not tender over the elbow or shoulder she is exquisitely tender over the fracture site. Head: Normocephalic Atraumatic Chest: symmetrical rise, non-labored breathing, no audible wheeze Abdomen: no guarding, non-rigid Supplemental Info 09/13/2024 x-ray Left wrist: left wrist pre and postreduction x-rays intra- articular impacted dorsally angulated distal radius fracture prereduction postreduction anatomic is improved however there is some residual tilt to the articular surface dorsal tilt to articular surface 11 degrees. Coding Level of Care Code Off vis,est,level 4 Diagnoses Other closed intra-articular fracture of distal end of left radius, initial encounter S52.572A Encounter type: initial encounter Fracture type: closed Fracture morphology: other intra-articular Assessment and Plan Assessment and Plan (1) Distal radius fracture, left: Status: Acute Qualifiers: Encounter type: initial encounter Fracture type: closed Fracture morphology: other intra-articular Qualified Code(s): S52.572A - Other intraarticular fracture of lower end of left radius, initial encounter for closed fracture Plan Reviewed wrist x-rays that were taken on 09/13/2024 in the ER and explained that after the reduction the tilt is better but it is still 11 degrees dorsally tiltedat the articular surface and with the intra-articular nature of the fracture these are highly likely to continue to displace and further displacement will lead to increased posttraumatic arthritis and loss of function. We discussed surgical versus nonsurgical options including risk benefits alternatives of both including risk of bleeding infection nerve artery tissue damage need for further surgery continued pain hardware irritation hardware failure expected postoperative course and stiffness. . She would need to stop taking the turmeric and Ibuprofen/Aleve now but she is able to take Tylenol if needed for pain. Patient would like to proceed with the surgical procedure and will place short arm cast that was bivalved it was much more comfortable for herher numbness already improved after this was on to a degree. Tentative surgery date 09/23/2024. She will be in a splint for 1 week and then I would like her tofollow-up for splint removal wound check and start physical therapy and she willneed a follow-up appointment 2 weeks postop for suture removal. Follow up 1 week following surgery for post-op or sooner if pain, swelling, numbness or associated symptoms, or concerns develop. All questions answered. Patient in agreement of plan. Clinical Quality Measures Falls Risk Screening/Assistive Devices Have you fallen in the past year?: Yes 09/18/24 5088 <Electronically signed by Brian Garcia DO> Date Brian Garcia DO I have examined the patient and the H&P has been reviewed. There are no clinicalchanges since date of exam. 09/23/24 2988 <Electronically signed by Brian Garcia DO> Cosigner Signature (if applicable): CC: Dr. Augustine Pace MD; Dr. Brian Garcia DO~ Signed [facility] Work Phone: [phone]) 109-638305-12-2025 Discharge summary [facility] Medical Records Department [address] [place] [address] Instructions for Home/Discharge Instructions 09/23/24 1448 MR#: [id number] Acct: [id number] Name: ROSANNE BANERJEE Rep #:[id number] : 1960 63 From: Brian Garcia DO PCP: Dr. Augustine Pace MD Status:[facility] [place] Discharge Instructions Diet Discharge Diet: No restrictions Activity Keep extremity elevated above heart level: Operative Extremity Dressing / Incision Additional Dressing/Incision Instructions:: Strict elevation of operative extremity above heart fornext 72 hours. Ice 15 minutes on 15 minutes off. Continue ice and elevation for 7 days postoperatively. Encourage finger range of motion. No lifting pushing or pulling more than a coffee cup. Must keep splint on clean and dry. Follow-up in office in 1 week Follow Up Care Please Follow Up With: Brian Garcia DO When: 2 weeks Test Results: Test results from this visit will be discussed in further detail at your follow- up appointment, if applicable. Discharge Plan Admission Primary Reason for Your Visit: Left distal radius ORIF Attending Provider: Brian Garcia Primary Care Provider: Augustine Pace Print Language: Serbian Discharge Orders/Prescriptions Prescriptions: New cephalexin 500 mg capsule 1,000 mg PO Q8H Qty: 4 0RF Rx Instructions: Take 2 tabs before you go to bed and 2 tabs after 5 AM morning after surgery when you wake up oxycodone 5 mg tablet 5 - 10 mg PO Q4H PRN (Reason: pain) 5 Days Qty: 20 0RF Continued melatonin 3 mg capsule 3 mg PO HS PRN (Reason: sleep) Patient Comments: PT STATES SHE TAKES A COMBINATION SUPPLEMENT THAT CONTAINS BOTH MELATONIN ANDMAGNESIUM. acetaminophen [Tylenol] 325 mg tablet 325 mg PO ONCE PRN (Reason: pain) liothyronine 25 MCG tablet 25 mcg PO DAILY levothyroxine 125 MCG tablet 100 mcg PO DAILY cholecalciferol (vitamin D3) [Vitamin D3] 2,000 UNIT capsule 2,000 unit PO DAILY amlodipine 10 mg tablet 10 mg PO QHS hydrochlorothiazide 12.5 mg tablet 12.5 mg PO DAILY metoprolol succinate 25 mg tablet extended release 24 hr 25 mg PO DAILY Qty: 90 3RF Held omega-3 fatty acids 1,000 mg capsule 1,000 mg PO DAILY Hold Instructions: Resume on 09/30/24. turmeric 400 mg PO DAILY Hold Instructions: Resume on 09/30/24. Other Ambulatory Orders: 12 Lead EKG (Routine) Location: None Selected Ordered By: Dr. Ramsey Melgoza Referrals / Follow Up: Augustine Pace MD [Primary Care Provider] - Disposition Disposition (needs filled in before D/C Order can be placed): Home, Self Care 09/23/24 [address] [facility] Deliofreedom DO CC: Dr. Augustine Pace MD ~ Signed [facility]05-12-2025 Consult note [facility] Medical Records Department [address] [place] [address] Anesthesia Postop Eval I 09/23/24 1450 MR#: [id number] Acct: [id number] Name: ROSANNE BANERJEE Rep #:[id number] : 1960 63 From: Kuldeep Poon RNA PCP: Dr. Augustine Pace MD Status:[facility] [place] Y Race: C Location: [place] [address] Anesthesia: Postop Eval I Current Vital Signs Temperature: 98.8 F Pulse Rate: 68 Blood Pressure: 138/74 Respiratory Rate: 22 Pulse Ox: 97 Oxygen Delivery Method: Room Air Assessment Airway patent: Yes Spontaneous unlabored respirations: Yes Mental status: Awake and Calm nausea: No Vomiting: No Anesthesia Complication: No Fluid Hydration Crystalloid volume administer (ml): 800 Total IV fluid infused: 800 Progress Note Anesthesia document: Postop Eval 1 completed: Yes 09/23/24 1451 AS400 CONSULTANT> Date _ Kuldeep Mckenna AS400 CONSULTANT Cosigner Signature: Date CC: ~ Signed [facility]05-12-20[facility] [address] [place] [address] Operative Report 09/23/24 1444 MR#: [id number] Acct: [id number] Name: ROSANNE BANERJEE Rep #:[id number] : 1960 63 From: Brian Jose BIGGS PCP: Dr. Augustine Pace MD Status:[facility] Location: [place] [address] Operative Report (Standard) Operative Information Date of Procedure: 09/23/24 Pre-Operative Diagnosis: Left distal radius comminuted intra-articular fracture greater than 3 fragments Post-Operative Diagnosis: Same Surgery/Procedure Performed: ORIF distal radius carbide operator: Yes Blown Film Extrusion Operator: Ronn Ugarte Tasks completed by public aid eligibility assistant: Opening & closing, Implanting device, Hemostasis: Electrocautery and Retracting Additional foundation assistant?: No Type of Anesthesia: General RN Documented Start/Stop Times: Operation Date: 09/23/24 13:00 Case Time Into Pre-Op 09/23/24 11:29 Anesthesia Start 09/23/24 13:15 Into Room 09/23/24 13:15 Out of Pre-Op 09/23/24 13:15 Procedure Start 09/23/24 13:38 Procedure End 09/23/24 14:35 Procedure Start Time: 13:38 Procedure Stop Time: 14:35 Select all DRAINS/GRAFTS/IMPLANTS that apply: Implanted device Implanted device details: Synthes distal radius variable angle locking plate Estimated Blood Loss: 5 Specimen collected: No Description of surgery: Preoperative diagnosis: Left comminuted intra-articular distal radius fracture that was displaced Postoperative diagnosis: Same Anesthesia: [General} Procedure: ORIF of the distal radius Implants: Synthes distal radius variable angle locking plate Complications: None Indication for procedure: 63-year-old female patient status post ground-level fall injuring her left wrist we discussed risks benefits and alternatives of conservative versus surgical intervention. Including the risk of bleeding infection nerve artery tissue damage need for further surgery continued pain postoperative stiffness need for postoperative physical therapy and the expected postoperative course. Procedure: The patient was met in the preoperative holding area the operative extremity was identified by both patient and physician and marked. Patient was met by anesthesia she was brought back to the operating room on a wheeled cart and transferred to the operating table in the supine position anesthesia was started. A well-padded tourniquet was placed on the upper arm of the operative extremity. She was prepped and draped in the usual sterile fashion. A Time out was called to ensure the proper patient procedure and extremity were being contemplated. A 15 blade scalpel was used to make a linear incision over the FCR tendon this was carried down through the skin and subcutaneous tissue. El ectrocautery was used to maintain hemostasis. Brittaney retractors were used. The FCR tendon sheath was incised and the FCR tendon was mobilized radially. A deep blade scalpel was used to perforate the fascia of the deep FCR tendon sheath and Littler scissors were used to dissect proximally and distally. Blunt dissection was performed a alok was placed on the radial and ulnar side of the radius. The pronator quadratus was partially torn from the injury and was released off the radial border of the radius with electrocautery and was elevated with a nava elevator. The Hohmann retractors were then placed deep to this muscle. The fracture site was visualized and was freed of hematoma and clot debriswith the use of small rongeur and Estelline. The fracture was then reduced with the use of a Estelline and ulnar deviation and wrist flexion. This was checked under fluoroscopy to ensure that an adequate reduction could be performed. A plate was then positioned over the fracture site and temporarily fixed to the bone with K wires. A cortical screw was then placed in the shaft and sequential locking screws were placed distally this was checked on both AP and lateral projections to ensure screw placementwas not penetrating the joint and was in the proper location. Bone drill sleeve was used for the radial styloid screw and a variable angle fashion. The remainder of the cortical screws were placed inthe shaft. And the fracture and hardware were visualized in both AP and lateral projections in goodalignment and fracture positioning. The wound was thoroughly irrigated. Tourniquet was let down to assess for bleeding there was no significant bleeding . pronator quadratus was not repairable. A subcutaneous stitch with 3-0 Vicryl was performed followed by 4-0 nylon vertical mattress stitches. Followed by Xeroform 4 x 4 ABD web roll stockinette more web roll volar paster splint and an Donte wrap. There was no complications intraoperatively and the patient was brought back to the PACU in stable condition where she received an axillary block. All counts were correct. Surgical Findings: Comminuted intra-articular distal radius fracture Complications Complications: No 09/23/24 1448 Cosigner Signature (if applicable): CC: Dr. Augusitne Paec MD; Dr. Brian Garcia, DO~ Signed [facility]05-12-2025 Consult note Author Ramsey Melgoza [facility] Note Date/Time September 23, 2024 12:36 pm [facility] Medical Records Department [address] [place] [address] Pre-Anesthesia Evaluation 09/23/24 1225 MR#: [id number] Acct: [id number] Name: ROSANNE BANERJEE Rep #:[id number] : 1960 63 From: Ramsey Melgoza MD PCP: Dr. Augustine Pace MD Status:[facility] Y Race: C Location: [place] [address] ASA Classification* ASA Classification ASA Classification: 3 Assessment & Plan Anesthesia* Anesthesia Assessment Anesthesia Assessment: Discussed sedation and/or anesthesia options, risks, benefits, and alternatives with patient/parents/legal guardian/POA. Questions invited. The patient/parents/legal guardian/POA seems to understand and agrees to proceedwith anesthesia plan. Reviewed the physical assessment, medical history, allergy history and patient home medications list prior to surgery/procedure/anesthetic and documented any changes. Performed airway and anesthesia risk assessments. Anesthesia Type Anesthesia Type: General (Patient has mild aortic stenosis. Avoid increased heart rate or decrease blood pressure. Phenylephrine is drug of choice) and Block (Axillary block discussed. She would like to decide after surgery.) History Source History Obtained from:: Patient and Chart Anesthesia Focused Assessment* Temperature: 97.4 F Pulse Rate: 59 Blood Pressure: 122/58 Respiratory Rate: 16 Pulse Ox: 100 Oxygen Delivery Method: Room Air Airway Assessment Mouth opens: >3 cm Mallampati Score: IV Teeth Condition: Chipped/Broken (patient has bonding on teeth #8, 9 and 10.) Neck Range of motion (ROM): Full ROM Comment: Short thyromental distance Focused Labs Anesthesia Preop lab: CBC WBC 6.5 K/mm3 (4.4-11.0) 07/30/20 16:30 07/30/20 RBC 4.84 M/mm3 (4.2-5.4) 07/30/20 16:30 07/30/20 Hgb 12.8 g/dL (12.0-15.0) 07/30/20 16:30 07/30/20 Hct 40.9 % (37-47) 07/30/20 16:30 07/30/20 Plt Count 247 K/mm3 (150-450) 07/30/20 16:30 07/30/20 CHEMISTRY Potassium 4.1 mmol/L (3.3-5.1) 09/19/24 14:03 09/19/24 Sodium 132 mmol/L (133-145) L 09/19/24 14:03 09/19/24 BUN 29 mg/dL (4-19) H 09/19/24 14:03 09/19/24 Creatinine 0.65 mg/dL (0.70-1.20) L 09/19/24 14:03 Glucose 96 mg/dL (70-99) 09/19/24 14:03 09/19/24 POC Glucose 93 mg/dL (70-110) 04/19/18 11:00 04/19/18 TSH 0.214 uIU/mL (0.300-4.200) L 09/19/24 14:03 COAG PT 14.0 SECONDS (11.7-14.9) 04/12/18 16:02 Pre-Assessment Diagnosis/Proposed Procedure Planned Operative Procedure(s): ORIF LEFT WRIST Anesthesia History Anesthesia History - short piece handler: Anesthesia History - short piece handler Hx Hospitalization No 09/19/24 12:25 Any Problems With Anesthesia No 09/19/24 12:25 Cholinesterase deficiency No 09/19/24 12:25 You/Your Family Experience No 09/19/24 12:25 fever (hyperthermia) with Relationship Recent Exposure to Contagious No 09/23/24 11:42 Disease Does patient have nerve No 09/19/24 12:25 stimulator Patient instructed to have device shut off --Does patient have Pacemaker No 09/23/24 11:42 or ICD? When Was Last Pacemaker Check QUESTION #4 FULL TEXT: You/Your Family Experience fever (hyperthermia) with Anesthesia Last Oral Intake Last Oral intake: Last Oral Intake NPO since 21:30 09/23/24 11:42 Meds taken in AM with sips of water? Meds patient instructed to take am of surgery Any additional information?: Yes Meds taken in AM with sips of water?: Yes PONV PONV - short piece handler: PONV - short piece handler Female Yes 09/19/24 12:25 HX of Motion Sickness Yes 09/19/24 12:25 HX of N/V After Surgery No 09/19/24 12:25 Non-Smoker Yes 09/19/24 12:25 Duration of Surgery greater Yes 09/19/24 12:25 than 60 minutes Number of Risk Factors 4 09/19/24 12:25 PONV Score Severe Risk 09/19/24 12:25 Height & Weight Height & Weight: Anesthesia: Height & Weight Height 5 ft 2 in 09/23/24 11:42 Weight: 96.1 kg 09/23/24 11:42 Body Mass Index (BMI) 38.7 09/23/24 11:42 Respiratory Assessment Respiratory Assessment - short piece handler: Respiratory Tract Infection Hx - short piece handler Hx Respiratory Tract Infection No 09/19/24 12:25 STOP Sleep Apnea STOP Sleep Apnea - short piece handler: STOP Sleep Apnea - short piece handler Hx Hypertension Yes: CONTROLLED WITH MED 09/19/24 12:25 Hx Sleep Apnea No 09/19/24 12:25 CPAP No 09/13/24 14:27 BIPAP No 09/13/24 14:27 Do you snore loudly (louder No 09/19/24 12:25 than talking or can be heard Do you often feel tired/ No 09/19/24 12:25 fatigued/ sleepy during daytime? Has anyone observed you stop No 09/19/24 12:25 breathing during sleep? STOP Results Negative 09/19/24 12:25 QUESTION #5 FULL TEXT : Do you snore loudly (louder than talking or can be heard through closed doors)? 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 Specify any problems Hx of Preganancy in last 3 N/A 09/19/24 12:25 Months Nurse Filling Out Transfusion NBUCHER 09/19/24 12:25 & Questions: Date: 09/19/24 09/19/24 12:25 Time: 12:27 09/19/24 12:25 Patient unable to answer at this time (ie. confused, unrespo /Reproduction History /Reproductive History - short piece handler: /Reproductive Hx- short piece handler Hx Now No 09/19/24 12:25 Gestational Age (in weeks): EDC: Hx Hx Para Hx Section SAB No 09/19/24 12:25 Active Medications Active Medications: Current Medications Generic Name Dose Route Start Last Admin Trade Name Freq PRN Reason Stop Dose Admin Cefazolin Sodium 2 gm/ Sodium 110 mls @ 150 mls/hr 09/23/24 13:00 Chloride IV 09/23/24 13:43 INTRAOP ONE Lactated Ringer's 1,000 mls @ 15 mls/hr 09/23/24 11:30 09/23/24 11:55 IV 15 mls/hr .Q48H SACHA Administration PFSH Medical History Wears contact lenses Wears glasses Thyroid disease History of edema Non-smoker History of stress test Heart murmur History of echocardiogram Cardiology follow-up encounter Essential (primary) hypertension Hyperlipidemia Postmenopausal bleeding Home Medications ?Medication ?Instructions ?Recorded ?Last Taken ?Type levothyroxine 125 mcg tablet 100 mcg PO DAILY 03/18/15 09/23/24 History liothyronine 25 mcg tablet 25 mcg PO DAILY 03/18/15 07:00 History cholecalciferol (vitamin D3) 50 2,000 unit PO DAILY 09/13/24 History mcg (2,000 unit) capsule (Vitamin D3) melatonin 3 mg capsule 3 mg PO HS PRN sleep 3 Unknown History omega-3 fatty acids 1,000 mg 1,000 mg PO DAILY 3 09/22/24 History capsule metoprolol succinate 25 mg 25 mg PO DAILY #90 tabs 09/23/24 07:00 Rx tablet,extended release 24 hr amlodipine 10 mg tablet 10 mg PO QHS 09/13/24 History hydrochlorothiazide 12.5 mg tablet 12.5 mg PO DAILY 09/13/24 History turmeric 400 mg PO DAILY 09/13/2412/06 History acetaminophen 325 mg tablet 325 mg PO ONCE PRN pain Unknown History (Tylenol) Allergy/AdvReac Type Severity Reaction Status Date / Time ramipril (From Altace) Allergy Swelling Verified 09/23/24 11:40 ARB-Angiotensin Receptor AdvReac Severe Angioedema Verified 09/23/24 11:40 Antagonist Family History Mother Hypertension CVA (cerebral vascular accident) Diabetes Father Hypertension Cancer Grandmother CAD (coronary artery disease) Surgical History History of esophagogastroduodenoscopy (EGD) History of colonoscopy History of repair of right rotator cuff History of medial meniscus repair of right knee History of ankle surgery History of foot surgery S/P hysterectomy (~2017) Social History Smoking Status: Never smoker alcohol intake: current substance use type: does not use Review of Systems (Anesthesia) ROS Narrative System reviewed and no additional complaints, except as documented. 09/23/24 6937 <Electronically signed by Ramsey mesa MD> Date _ Ramsey Melgoza MD Cosigner Signature: Date CC: ~ Signed [facility] Work Phone: [phone]) 500-761105-12-2025 History and physical note [facility] Medical Records Department [address] [place] [address] History & Physical Exam 09/23/24 1308 MR#: [id number] Acct: [id number] Name: ROSANNE BANERJEE Rep #:[id number] : 1960 63 From: Brian Garcia DO PCP: Dr. Augustine Pace MD Status:[facility] Location: [place] [address] History and Physical Date of Admission: 09/23/24 [facility] [address] [place] [address] OFFICE VISIT Date of Service: 09/18/24 MR#: [id number] Acct: [id number] Name: ROSANNE BANERJEE Rep #: [id number] : 1960 Provider: Dr. Brian Garcia DO Age/Sex: 63/F Location: [facility] Status: Signed Intake Vital Signs 09/13/2512:06 09/13/2513:27 09/19/2507:32 Height 5 ft 2 in 5 ft 2 in 5 ft 2 in Weight: 213 lb BMI 38.9 Intake Visit Reasons: LEFT WRIST Chief Complaint: Left wrist Accompanied by: Self Is patient in pain?: No Allergies ramipril (From Altace) Allergy (Verified 09/18/24 08:36) SwellingARB-Angiotensin Receptor Antagonist Adverse Reaction (Severe, Verified 09/18/24 08:36) Angioedema Medications ?Medication ?Instructions ?Recorded ?Confirmed ?Type levothyroxine 125 mcg tablet 125 mcg PO DAILY 03/18/15 09/18/24 Histo ry liothyronine 25 mcg tablet 25 mcg PO DAILY 03/18/15 09/18/24 Histor y cholecalciferol (vitamin D3) 50 2,000 unit PO DAILY 04/13/18 09/18/24 Hi story mcg (2,000 unit) capsule (Vitamin D3) fexofenadine 180 mg tablet 180 mg PO DAILY PRN allergy 03/27/2312/06 History symptoms fluticasone propionate 50 2 spray intranasal DAILY PRN 03/27/23 History mcg/actuation nasal allergy symptoms spray,suspension melatonin 3 mg capsule 3 mg PO HS PRN sleep 03/27/23 09/18/24 H istory omega-3 fatty acids 1,000 mg 1,000 mg PO DAILY 03/27/23 09/18/24 Hist ory capsule metoprolol succinate 25 mg 25 mg PO DAILY #90 tabs 05/27/24 5 Rx tablet,extended release 24 hr amlodipine 10 mg tablet 10 mg PO QHS 09/13/24 09/18/24 History hydrochlorothiazide 12.5 mg tablet 12.5 mg PO DAILY 09/13/24 09/18/24 Histo ry turmeric PO DAILY 09/13/24 09/18/24 History acetaminophen 325 mg tablet 325 mg PO ONCE PRN 09/18/24 09/18/24 His tory (Tylenol) Have you fallen in the past year?: Yes PFSH Medical History Essential (primary) hypertension Hyperlipidemia Postmenopausal bleeding Surgical History S/P hysterectomy Family History Mother Hypertension CVA (cerebral vascular accident) DiabetesFather Hypertension CancerGrandmother CAD (coronary artery disease) Social History Smoking Status: Never smoker alcohol intake: current substance use type: does not use HPI LEFT WRIST Details: This documentation accurately reflects the service provided and the decisions made by me, Dr. Brian Garcia, DO 09/18/24 0754. Part of today?s visit was documented by Mercy Carlisle MA, acting as scribe. ROSANNE BANERJEE is a 63 year old F with a medical history significant for but not limited to aortic stenosis, hypertension, hyperlipidemia, bradycardia, hypothyroidism, here today for ER follow-up 09/13/2024 left wrist fracture status post ground-level fall walking her dog. She did have a hematoma block and a closed reduction and splinting from the emergency room which she felt was very tight and causing her numbness into her mostly in index and middle finger but significant pain on her thumb. She states they did redo it once but it was not much better since. She is right-hand dominant, patient denies any smoking or drug use. Denies any previous injury to this hand/arm. Ortho Exam General General: Yes no acute distress and Yes well groomed Neurologic: Yes alert and Yes oriented x3 Psychologic: Yes reasonable and appropriate Right Wrist/Hand Skin/Wound: Yes Swelling and Yes Ecchymosis Left Wrist/Hand Date of injury: 09/13/24 Skin/Wound: Yes CDI, Yes Swelling, Yes Ecchymosis, Yes capillary refill normal and No erythema WRIST: She does have some volar ecchymosis there was a Band-Aid on the dorsum of her wrist from the hematoma block that was given in the emergency room. Her compartments are soft her swelling is controlled she does have numbness in the fingers however this is much improved after splint was removed but didhave someresidual in the index finger. She has intact sensation light touch and can wiggle her digits she is not tender over the elbow or shoulder she is exquisitely tender over the fracture site. Head: Normocephalic Atraumatic Chest: symmetrical rise, non-labored breathing, no audible wheeze Abdomen: no guarding, non-rigid Supplemental Info 09/13/2024 x-ray Left wrist: left wrist pre and postreduction x-rays intra- articular impacted dorsally angulated distal radius fracture prereduction postreduction anatomic is improved however there is some residual tilt to the articular surface dorsal tilt to articular surface 11 degrees. Coding Level of Care Code Off vis,est,level 4 Diagnoses Other closed intra-articular fracture of distal end of left radius, initial encounter S52.572A Encounter type: initial encounter Fracture type: closed Fracture morphology: other intra-articular Assessment and Plan Assessment and Plan (1) Distal radius fracture, left: Status: Acute Qualifiers: Encounter type: initial encounter Fracture type: closed Fracture morphology: other intra-articular Qualified Code(s): S52.572A - Other intraarticular fracture of lower end of left radius, initial encounter for closed fracture Plan Reviewed wrist x-rays that were taken on 09/13/2024 in the ER and explained that after the reduction the tilt is better but it is still 11 degrees dorsally tiltedat the articular surface and with the intra-articular nature of the fracture these are highly likely to continue to displace and further dis placement will lead to increased posttraumatic arthritis and loss of function. We discussed surgical versus nonsurgical options including risk benefits alternatives of both including risk of bleeding infection nerve artery tissue damage need for further surgery continued pain hardware irritation hardware failure expected postoperative course and stiffness. . She would need tostop taking the turmeric and Ibuprofen/Aleve now but she is able to take Tylenol if needed for pain. Patient would like to proceed with the surgical procedure and will place short arm cast that was bivalved it was much more comfortable for herher numbness already improved after this was on to a degree. Tentative surgery date 09/23/2024. She will be in a splint for 1 week and then I would like her tofollow-up for splint removal wound check and start physical therapy and she willneed a follow-up appointment 2 weeks postop for suture removal. Follow up 1 week following surgery for post-op or sooner if pain, swelling, numbness or associated symptoms, or concerns develop. All questions answered. Patient in agreement of plan. Clinical Quality Measures Falls Risk Screening/Assistive Devices Have you fallen in the past year?: Yes 09/18/24 0952 Date Brian Garcia DO I have examined the patient and the H&P has been reviewed. There are no clinicalchanges since date of exam. 09/23/24 1309 Cosigner Signature (if applicable): CC: Dr. Augustine Pace MD; Dr. Brian Garcia DO~ Signed [facility]05-12-2025 [facility] Medical Records Department [address] [place] [address] History Physical Exam 09/23/24 1308 MR#: [id number] Acct: [id number] Name: ROSANNE BANERJEE Rep #: [id number] : 1960 63 From: Brian Garcia DO PCP: Dr. Augustine Pace MD Status:[facility] Location: [place] [address] History and Physical Date of Admission: 09/23/24 [facility] [address] [place] [address] [address] [place] [address] OFFICE VISIT Date of Service: 09/18/24 MR#: [id number] Acct: [id number] Name: ROSANNE BANERJEE Rep #: [id number] : 1960 Provider: Dr. Brian Garcia DO Age/Sex: 63/F Location: [facility] Status: Signed Intake Vital Signs 09/13/2512:06 09/13/2513:27 09/19/2507:32 Height 5 ft 2 in 5 ft 2 in 5 ft 2 in Weight: 213 lb BMI 38.9 Intake Visit Reasons: LEFT WRIST Chief Complaint: Left wrist Accompanied by: Self Is patient in pain?: No Allergies ramipril (From Altace) Allergy (Verified 09/18/24 08:36) SwellingARB-Angiotensin Receptor Antagonist Adverse Reaction (Severe, Verified 09/18/24 08:36) Angioedema Medications ???Medication ???Instructions ???Recorded ???Confirmed ???Type levothyroxine 125 mcg tablet 125 mcg PO DAILY 03/18/15 09/18/24 History liothyronine 25 mcg tablet 25 mcg PO DAILY 03/18/15 09/18/24 History cholecalciferol (vitamin D3) 50 2,000 unit PO DAILY 04/13/18 09/18/24 History mcg (2,000 unit) capsule (Vitamin D3) fexofenadine 180 mg tablet 180 mg PO DAILY PRN allergy 03/27/23 09/18/24 Hist ory symptoms fluticasone propionate 50 2 spray intranasal DAILY PRN 03/27/23 09/18/24 His tory mcg/actuation nasal allergy symptoms spray,suspension melatonin 3 mg capsule 3 mg PO HS PRN sleep 03/27/23 09/18/24 History omega-3 fatty acids 1,000 mg 1,000 mg PO DAILY 03/27/23 09/18/24 History capsule metoprolol succinate 25 mg 25 mg PO DAILY #90 tabs 05/27/24 09/18/24 Rx tablet,extended release 24 hr amlodipine 10 mg tablet 10 mg PO QHS 09/13/24 09/18/24 History hydrochlorothiazide 12.5 mg tablet 12.5 mg PO DAILY 09/13/24 09/18/24 History turmeric PO DAILY 09/13/24 09/18/24 History acetaminophen 325 mg tablet 325 mg PO ONCE PRN 09/18/24 09/18/24 History (Tylenol) Have you fallen in the past year?: Yes PFSH Medical History Essential (primary) hypertension Hyperlipidemia Postmenopausal bleeding Surgical History S/P hysterectomy Family History Mother Hypertension CVA (cerebral vascular accident) DiabetesFather Hypertension CancerGrandmother CAD (coronary artery disease) Social History Smoking Status: Never smoker alcohol intake: current substance use type: does not use HPI LEFT WRIST Details: This documentation accurately reflects the service provided and the decisions made by me, Dr. Brian Garcia, DO 09/18/24 0754. Part of today???s visit was documented by Mercy Carlisle MA, acting as scribe. ROSANNE BANERJEE is a 63 year old F with a medical history significant for but not limited to aortic stenosis, hypertension, hyperlipidemia, bradycardia, hypothyroidism, here today for ER follow-up 09/13/2024 left wrist fracture status post ground-level fall walking her dog. She did have a hematoma block and a closed reduction and splinting from the emergency room which she felt was very tight and causing her numbness into her mostly in index and middle finger but significant pain on her thumb. She states they did redo it once but it was not much better since. She is right- hand dominant, patient denies any smoking or drug use. Denies any previous injury to this hand/arm. Ortho Exam General General: Yes no acute distress and Yes well groomed Neurologic: Yes alert and Yes oriented x3 Psychologic: Yes reasonable and appropriate Right Wrist/Hand Skin/Wound: Yes Swelling and Yes Ecchymosis Left Wrist/Hand Date of injury: 09/13/24 Skin/Wound: Yes CDI, Yes Swelling, Yes Ecchymosis, Yes capillary refill normal and No erythema WRIST: She does have some volar ecchymosis there was a Band-Aid on the dorsum of her wrist from the hematoma block that was given in the emergency room. Her compartments are soft her swelling is controlled she does have numbness in the fingers however this is much improved after splint was removed but did have some residual in the index finger. She has intact sensation lig (more content not included)...[facility]05-12-2025 Consult note [facility] Medical Records Department [address] [place] [address] Pre-Anesthesia Evaluation 09/23/24 1225 MR#: [id number] Acct: [id number] Name: ROSANNE BANERJEE Rep #:[id number] : 1960 63 From: Ramsey Melgoza MD PCP: Dr. Augustine Pace MD Status:[facility] Y Race: C Location: [place] [address] ASA Classification* ASA Classification ASA Classification: 3 Assessment & Plan Anesthesia* Anesthesia Assessment Anesthesia Assessment: Discussed sedation and/or anesthesia options, risks, benefits, and alternatives with patient/parents/legal guardian/POA. Questions invited. The patient/parents/legal guardian/POA seems to understand and agrees to proceedwith anesthesia plan. Reviewed the physical assessment, medical history, allergy history and patient home medications list prior to surgery/procedure/anesthetic and documented any changes. Performed airway and anesthesia risk assessments. Anesthesia Type Anesthesia Type: General (Patient has mild aortic stenosis. Avoid increased heart rate or decrease blood pressure. Phenylephrine is drug of choice) and Block (Axillary block discussed. She would liketo decide after surgery.) History Source History Obtained from:: Patient and Chart Anesthesia Focused Assessment* Temperature: 97.4 F Pulse Rate: 59 Blood Pressure: 122/58 Respiratory Rate: 16 Pulse Ox: 100 Oxygen Delivery Method: Room Air Airway Assessment Mouth opens: >3 cm Mallampati Score: IV Teeth Condition: Chipped/Broken (patient has bonding on teeth #8, 9 and 10.) Neck Range of motion (ROM): Full ROM Comment: Short thyromental distance Focused Labs Anesthesia Preop lab: CBC WBC 6.5 K/mm3 (4.4-11.0) 07/30/20 16:30 07/30/20 RBC 4.84 M/mm3 (4.2-5.4) 07/30/20 16:30 07/30/20 Hgb 12.8 g/dL (12.0-15.0) 07/30/20 16:30 07/30/20 Hct 40.9 % (37-47) 07/30/20 16:30 07/30/20 Plt Count 247 K/mm3 (150-450) 07/30/20 16:30 07/30/20 CHEMISTRY Potassium 4.1 mmol/L (3.3-5.1) 09/19/24 14:03 09/19/24 Sodium 132 mmol/L (133-145) L 09/19/24 14:03 09/19/24 BUN 29 mg/dL (4-19) H 09/19/24 14:03 09/19/24 Creatinine 0.65 mg/dL (0.70-1.20) L 09/19/24 14:03 Glucose 96 mg/dL (70-99) 09/19/24 14:03 09/19/24 POC Glucose 93 mg/dL (70-110) 04/19/18 11:00 04/19/18 TSH 0.214 uIU/mL (0.300-4.200) L 09/19/24 14:03 COAG PT 14.0 SECONDS (11.7-14.9) 04/12/18 16:02 Pre-Assessment Diagnosis/Proposed Procedure Planned Operative Procedure(s): ORIF LEFT WRIST Anesthesia History Anesthesia History - short piece handler: Anesthesia History - short piece handler Hx Hospitalization No 09/19/24 12:25 Any Problems With Anesthesia No 09/19/24 12:25 Cholinesterase deficiency No 09/19/24 12:25 You/Your Family Experience No 09/19/24 12:25 fever (hyperthermia) with Relationship Recent Exposure to Contagious No 09/23/24 11:42 Disease Does patient have nerve No 09/19/24 12:25 stimulator Patient instructed to have device shut off --Does patient have Pacemaker No 09/23/24 11:42 or ICD? When Was Last Pacemaker Check QUESTION #4 FULL TEXT: You/Your Family Experience fever (hyperthermia) with Anesthesia Last Oral Intake Last Oral intake: Last Oral Intake NPO since 21:30 09/23/24 11:42 Meds taken in AM with sips of water? Meds patient instructed to take am of surgery Any additional information?: Yes Meds taken in AM with sips of water?: Yes PONV PONV - short piece handler: PONV - short piece handler Female Yes 09/19/24 12:25 HX of Motion Sickness Yes 09/19/24 12:25 HX of N/V After Surgery No 09/19/24 12:25 Non-Smoker Yes 09/19/24 12:25 Duration of Surgery greater Yes 09/19/24 12:25 than 60 minutes Number of Risk Factors 4 09/19/24 12:25 PONV Score Severe Risk 09/19/24 12:25 Height & Weight Height & Weight: Anesthesia: Height & Weight Height 5 ft 2 in 09/23/24 11:42 Weight: 96.1 kg 09/23/24 11:42 Body Mass Index (BMI) 38.7 09/23/24 11:42 Respiratory Assessment Respiratory Assessment - short piece handler: Respiratory Tract Infection Hx - short piece handler Hx Respiratory Tract Infection No 09/19/24 12:25 STOP Sleep Apnea STOP Sleep Apnea - short piece handler: STOP Sleep Apnea - short piece handler Hx Hypertension Yes: CONTROLLED WITH MED 09/19/24 12:25 Hx Sleep Apnea No 09/19/24 12:25 CPAP No 09/13/24 14:27 BIPAP No 09/13/24 14:27 Do you snore loudly (louder No 09/19/24 12:25 than talking or can be heard Do you often feel tired/ No 09/19/24 12:25 fatigued/ sleepy during daytime? Has anyone observed you stop No 09/19/24 12:25 breathing during sleep? STOP Results Negative 09/19/24 12:25 QUESTION #5 FULL TEXT : Do you snore loudly (louder than talking or can be heard through closeddoors)? 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 Specify any problems Hx of Preganancy in last 3 N/A 09/19/24 12:25 Months Nurse Filling Out Transfusion NBUCHER 09/19/24 12:25 & Questions: Date: 09/19/24 09/19/24 12:25 Time: 12:27 09/19/24 12:25 Patient unable to answer at this time (ie. confused, unrespo /Reproduction History /Reproductive History - short piece handler: /Reproductive Hx- short piece handler Hx Now No 09/19/24 12:25 Gestational Age (in weeks): EDC: Hx Hx Para Hx Section SAB No 09/19/24 12:25 Active Medications Active Medications: Current Medications Generic Name Dose Route Start Last Admin Trade Name Freq PRN Reason Stop Dose Admin Cefazolin Sodium 2 gm/ Sodium 110 mls @ 150 mls/hr 09/23/24 13:00 Chloride IV 09/23/24 13:43 INTRAOP ONE Lactated Ringer's 1,000 mls @ 15 mls/hr 09/23/24 11:30 09/23/24 11:55 IV 15 mls/hr .Q48H SACHA Administration PFSH Medical History Wears contact lenses Wears glasses Thyroid disease History of edema Non-smoker History of stress test Heart murmur History of echocardiogram Cardiology follow-up encounter Essential (primary) hypertension Hyperlipidemia Postmenopausal bleeding Home Medications ?Medication ?Instructions ?Recorded ?Last Taken ?Type levothyroxine 125 mcg tablet 100 mcg PO DAILY 03/18/15 09/23/24 History liothyronine 25 mcg tablet 25 mcg PO DAILY 03/18/15 07:00 History cholecalciferol (vitamin D3) 50 2,000 unit PO DAILY 09/13/24 History mcg (2,000 unit) capsule (Vitamin D3) melatonin 3 mg capsule 3 mg PO HS PRN sleep 3 Unknown History omega-3 fatty acids 1,000 mg 1,000 mg PO DAILY 2 3 09/22/24 History capsule metoprolol succinate 25 mg 25 mg PO DAILY #90 tabs 09/23/24 07:00 Rx tablet,extended release 24 hr amlodipine 10 mg tablet 10 mg PO QHS 09/13/24 History hydrochlorothiazide 12.5 mg tablet 12.5 mg PO DAILY 09/13/24 History turmeric 400 mg PO DAILY 09/13/2412/06 History acetaminophen 325 mg tablet 325 mg PO ONCE PRN pain Unknown History (Tylenol) Allergy/AdvReac Type Severity Reaction Status Date / Time ramipril (From Altace) Allergy Swelling Verified 09/23/24 11:40 ARB-Angiotensin Receptor AdvReac Severe Angioedema Verified 09/23/24 11:40 Antagonist Family History Mother Hypertension CVA (cerebral vascular accident) Diabetes Father Hypertension Cancer Grandmother CAD (coronary artery disease) Surgical History History of esophagogastroduodenoscopy (EGD) History of colonoscopy History of repair of right rotator cuff History of medial meniscus repair of right knee History of ankle surgery History of foot surgery S/P hysterectomy (~2017) Social History Smoking Status: Never smoker alcohol intake: current substance use type: does not use Review of Systems (Anesthesia) ROS Narrative System reviewed and no additional complaints, except as documented. 09/23/24 1236 moshe PAYNE> Date _ Ramsey Melgoza MD Cosigner Signature: Date CC: ~ Signed [facility]05-07-2025 Evaluation note* Diagnosis Onset Date Resolution Status Admit Date Distal radius fracture, left acute September 18, 2024 8:31am [facility] Work Phone: 1(157) 598-739905-07-2025 Evaluation note* Diagnosis Onset Date Resolution Status Admit Date Distal radius fracture, left acute September 18, 2024 8:31am Orthopedic aftercare acute September 30, 2024 10:04am [facility] Work Phone: 1(108) 546-804905-07-2025 Evaluation note* Diagnosis Onset Date Resolution Status Admit Date Distal radius fracture, left acute September 18, 2024 8:31am Orthopedic aftercare acute September 30, 2024 10:04am Orthopedic aftercare acute October 09, 2024 10:04am [facility] Work Phone: 1(862) 437-668508-11-2023 NoteHNO ID: [id number] Author: Gaby Goode PA-C Service: ? Author Type: Physician House Coordinator Type: Progress Notes Filed: 12/23/2022 2:33 PM Note Text: Ms. Rosanne Banerjee presents today for right knee supartz injection #3/3. Today she rates her pain a 6 on a scale of 0 to 10. Large Joint Arthro/Inj: R knee joint Informed Consent Consent Obtained: Verbal Byron Protocol A moment to CARE was completed. SIGN IN Personnel directly involved with the procedure wore the appropriate PPE. Special Equipment: N/A Patient/Surrogate Stated/Verified: Patient name, Date of , Relevant allergies and Intended procedure TIME OUT Intended patient and procedure match the source document(s). Consent documented and matches the intended procedure. Relevant labs, photos, and/or imaging studies have been reviewed. Correct side/site marked and visible. Medications required for procedure verified. No fire risk assessment and interventions applicable. No implant(s) inserted. 12/23/2022 2:32 PM The procedure site was prepped in the usual sterile fashion. Site: R knee joint Medications: 2.5 mL sodium hyaluronate 10/ mg/mL Outcome: Tolerated well, no immediate complications Post-injection instructions were reviewed with the patient and the patient voiced understanding of these instructions. SIGN OUT No instruments, equipment or retained foreign bodies applicable. [facility]08-11-2023 History of Present illness Narrative* Gaby Goode PA-C - 12/23/2022 1:22 PM EDTAssociated Order(s): Large Joint Arthro/Inj: R knee joint Post-Procedure Diagnose(s): Primary osteoarthritis of right knee Ms. Rosanne Banerjee presents today for right knee supartz injection #3/3. Today she rates her pain a 6 on a scale of 0 to 10. Large Joint Arthro/Inj: R knee joint Informed Consent Consent Obtained: Verbal Byron Protocol A moment to CARE was completed. SIGN IN Personnel directly involved with the procedure wore the appropriate PPE. Special Equipment: N/A Patient/Surrogate Stated/Verified: Patient name, Date of , Relevant allergies and Intended procedure TIME OUT Intended patient and procedure match the source document(s). Consent documented and matches the intended procedure. Relevant labs, photos, and/or imaging studies have been reviewed. Correct side/site marked and visible. Medications required for procedure verified. No fire risk assessment and interventions applicable. No implant(s) inserted. 12/23/2022 2:32 PM The procedure site was prepped in the usual sterile fashion. Site: R knee joint Medications: 2.5 mL sodium hyaluronate 10/ mg/mL Outcome: Tolerated well, no immediate complications Post-injection instructions were reviewed with the patient and the patient voiced understanding of these instructions. SIGN OUT No instruments, equipment or retained foreign bodies applicable. Gaby Goode PA-C [facility] NoteHNO ID: [id number] Author: Gaby Goode PA-C Service: ? Author Type: Physician House Coordinator Type: Progress Notes Filed: 12/16/2022 11:59 AM Note Text: Ms. Rosanne Banerjee presents today for right knee supartz injection #2/3. Today she rates her pain a 0 on a scale of 0 to 10 at rest. Large Joint Arthro/Inj: R knee joint Informed Consent Consent Obtained: Verbal Byron Protocol A moment to CARE was completed. SIGN IN Personnel directly involved with the procedure wore the appropriate PPE. Special Equipment: N/A Patient/Surrogate Stated/Verified: Patient name, Date of , Relevant allergies and Intended procedure TIME OUT Intended patient and procedure match the source document(s). Consent documented and matches the intended procedure. Relevant labs, photos, and/or imaging studies have been reviewed. Correct side/site marked and visible. Medications required for procedure verified. No fire risk assessment and interventions applicable. No implant(s) inserted. 12/16/2022 11:58 AM The procedure site was prepped in the usual sterile fashion. Site: R knee joint Medications: 2.5 mL sodium hyaluronate 10/ mg/mL Outcome: Tolerated well, no immediate complications Post-injection instructions were reviewed with the patient and the patient voiced understanding of these instructions. SIGN OUT No instruments, equipment or retained foreign bodies applicable. [facility] History of Present illness Narrative* Gaby Goode PA- - 12/16/2022 11:34 AM EDTAssociated Order(s): Large Joint Arthro/Inj: R knee joint Post-Procedure Diagnose(s): Primary osteoarthritis of right knee Ms. Rosanne Banerjee presents today for right knee supartz injection #2/3. Today she rates her pain a 0 on a scale of 0 to 10 at rest. Large Joint Arthro/Inj: R knee joint Informed Consent Consent Obtained: Verbal Byron Protocol A moment to CARE was completed. SIGN IN Personnel directly involved with the procedure wore the appropriate PPE. Special Equipment: N/A Patient/Surrogate Stated/Verified: Patient name, Date of , Relevant allergies and Intended procedure TIME OUT Intended patient and procedure match the source document(s). Consent documented and matches the intended procedure. Relevant labs, photos, and/or imaging studies have been reviewed. Correct side/site marked and visible. Medications required for procedure verified. No fire risk assessment and interventions applicable. No implant(s) inserted. 12/16/2022 11:58 AM The procedure site was prepped in the usual sterile fashion. Site: R knee joint Medications: 2.5 mL sodium hyaluronate 10/ mg/mL Outcome: Tolerated well, no immediate complications Post-injection instructions were reviewed with the patient and the patient voiced understanding of these instructions. SIGN OUT No instruments, equipment or retained foreign bodies applicable. Gaby Goode PA-C [facility] NoteHNO ID: [id number] Author: Destiny Randall, DO Service: ? Author Type: Physician Type: Progress Notes Filed: 12/11/2022 8:48 AM Note Text: Large Joint Arthro/Inj: R knee joint Informed Consent Consent Obtained: Verbal Byron Protocol A moment to CARE was completed. SIGN IN Personnel directly involved with the procedure wore the appropriate PPE. Special Equipment: Yes Patient/Surrogate Stated/Verified: Date of , Relevant allergies, Intended procedure and Patient name TIME OUT Intended patient and procedure match the source document(s). Consent documented and matches the intended procedure. Relevant labs, photos, and/or imaging studies have been reviewed. Correct side/site marked and visible. Medications required for procedure verified. Fire risk assessed and interventions discussed. No implant(s) inserted. 12/09/2022 8:46 AM The procedure site was prepped in the usual sterile fashion. Site: R knee joint Medications: 2.5 mL sodium hyaluronate 10/ mg/mL Outcome: Tolerated well, no immediate complications Post-injection instructions were reviewed with the patient and the patient voiced understanding of these instructions. SIGN OUT All instruments, equipment, possible retained foreign bodies accounted for. Follow Up Visit Chief Complaint Rosanne Banerjee is a 62 year old female who presents today for follow up office visit. Patient presents with: Right Knee - Follow Up, Knee Pain History of Present Illness PAIN EVALUATION 12/02/2022 1526 Pain Level: 6 Pain Location: Knee-Right Description: Dull Duration Amount of Time: 4 Duration Units: Months Frequency: Intermittent Intervention/Comfort measure: Medication;Cold;Positioning;Therapeutic techniques-CPRP HPI: Rosanne Banerjee is a 62 year old female for a follow up visit right knee. She is here to receive Supartz injection 1/. She has increasing pain with walking and going from sit to stand. Pain history is noted as above. Denies calf pain, numbness, tingling, fever, chills or other constitutional symptoms. Is there any overall improvement in your condition? No Any new injury, since being seen last: No REVIEW OF SYMPTOMS: Patient did not have, and does not currently have, any weight loss, malaise, fever, chills, headache, chest pain, chest pressure, palpitations, cough, shortness of breath, orthopnea, paroxsymal nocturnal dyspnea, nausea, vomiting, diarrhea, constipation, melena, hematochezia, urinary difficulties, prolonged bleeding, easily bruising, heat or cold intolerance, new onset joint pain or swelling, new onset extremity weakness or numbness, new onset auditory or visual disturbances, lightheadedness, dizziness, partial loss of consciousness or full loss of consciousness. Current Outpatient Medications Medication Sig Cholecalciferol, Vitamin D3, 50 mcg (2,000 unit) cap Take 1 capsule by mouth once daily. omega 0-gpk-tuw-fish oil 1,000 mg (250 mg-750 mg)/5 mL liqd Take 1 capsule by mouth once daily. melatonin 3 mg capsules Take 3 mg by mouth daily at bedtime. As needed fexofenadine HCl (SUSAN ORAL) Take by mouth. amLODIPine (NORVASC) 2.5 mg tablet Take 2.5 mg by mouth once daily. metoprolol succinate XL, long acting, (TOPROL XL) 50 mg 24 hr tablet Take 100 mg by mouth once daily. liothyronine (CYTOMEL) 25 mcg tablet Take 25 mcg by mouth once daily. levothyroxine (SYNTHROID) 125 mcg tablet Take 125 mcg by mouth daily before breakfast. hydrochlorothiazide (HYDRODIURIL, ESIDRIX) 25 mg tablet Take 25 mg by mouth once daily. meloxicam (MOBIC) 7.5 mg tablet take 1 tablet by mouth once daily (Patient not taking: Reported on 12/09/2022) zolpidem (AMBIEN) 5 mg tablet Take 1 tablet by mouth at bedtime as needed for up to 7 days. ondansetron (ZOFRAN) 4 mg tablet Take 1 tablet by mouth every 8 hours as needed for nausea/vomiting. oxyCODONE-acetaminophen (PERCOCET) 5-325 mg tablet Take 1 tablet by mouth every 6 hours as needed for pain. No current facility-administered medications for this visit. Physical Exam Vitals: [facility] 07/02/2014 Psych: Pleasant, good affect and mood General Appearance: Well appearing, alert, in no acute distress, well-hydrated, well nourished.. Skin: Skin color, texture, turgor normal, no suspicious rashes or lesions. Peripheral Pulses: Normal. Neurologic: Gait normal. Reflexes normal and symmetric. Sensation grossly intact.. Lymph Nodes: No cervical lymphadenopathy, No supraclavicular lymphadenopathy, No axillary lymphadenopathy., and No inguinal lymphadenopathy.. Respiratory: No recent pulmonary infection, hemoptysis, chronic cough, or shortness of breath at rest Rheumatologic: Joint deformities: right knee pain Right Knee Exam Tenderness The patient is experiencing tenderness in the medial joint line. Tests Caitlyn: Anterior - negative Posterior - negative Drawer: Anterior - negative Posterior - negative Kirkpatrick (more content not included)...[facility]07-28-2023 History of Present illness Narrative* Destiny Randall, - 12/09/2022 9:47 AM EDTAssociated Order(s): Large Joint Arthro/Inj: R knee joint Post-Procedure Diagnose(s): S/P arthroscopic surgery of right knee; Primary osteoarthritis of rightknee Images from the original note were not included. Large Joint Arthro/Inj: R knee joint Informed Consent Consent Obtained: Verbal Byron Protocol A moment to CARE was completed. SIGN IN Personnel directly involved with the procedure wore the appropriate PPE. Special Equipment: Yes Patient/Surrogate Stated/Verified: Date of , Relevant allergies, Intended procedure and Patient name TIME OUT Intended patient and procedure match the source document(s). Consent documented and matches the intended procedure. Relevant labs, photos, and/or imaging studies have been reviewed. Correct side/site marked and visible. Medications required for procedure verified. Fire risk assessed and interventions discussed. No implant(s) inserted. 12/09/2022 8:46 AM The procedure site was prepped in the usual sterile fashion. Site: R knee joint Medications: 2.5 mL sodium hyaluronate 10/ mg/mL Outcome: Tolerated well, no immediate complications Post-injection instructions were reviewed with the patient and the patient voiced understanding of these instructions. SIGN OUT All instruments, equipment, possible retained foreign bodies accounted for. Follow Up Visit Chief Complaint Rosanne Banerjee is a 62 year old female who presents today for follow up office visit. Patient presents with: Right Knee - Follow Up, Knee Pain History of Present Illness PAIN EVALUATION 12/02/2022 1526 Pain Level: 6 Pain Location: Knee-Right Description: Dull Duration Amount of Time: 4 Duration Units: Months Frequency: Intermittent Intervention/Comfort measure: Medication;Cold;Positioning;Therapeutic techniques-CPRP HPI: Rosanne Banerjee is a 62 year old female for a follow up visit right knee. She is here to receiveSupartz injection 05/17. She has increasing pain with walking and going from sit to stand. Pain history is noted as above. Denies calf pain, numbness, tingling, fever, chills or other constitutional symptoms. Is there any overall improvement in your condition? No Any new injury, since being seen last: No REVIEW OF SYMPTOMS: Patient did not have, and does not currently have, any weight loss, malaise, fever, chills, headache, chest pain, chest pressure, palpitations, cough, shortness of breath, orthopnea, paroxsymal nocturnal dyspnea, nausea, vomiting, diarrhea, constipation, melena, hematochezia, urinary difficulties, prolonged bleeding, easily bruising, heat or cold intolerance, new onset joint pain or swelling, newonset extremity weakness or numbness, new onset auditory or visual disturbances, lightheadedness, dizziness, partial loss of consciousness or full loss of consciousness. Current Outpatient Medications Medication Sig Cholecalciferol, Vitamin D3, 50 mcg (2,000 unit) cap Take 1 capsule by mouth once daily. omega 5-iof-ljq-fish oil 1,000 mg (250 mg-750 mg)/5 mL liqd Take 1 capsule by mouth once daily. melatonin 3 mg capsules Take 3 mg by mouth daily at bedtime. As needed fexofenadine HCl (SUSAN ORAL) Take by mouth. amLODIPine (NORVASC) 2.5 mg tablet Take 2.5 mg by mouth once daily. metoprolol succinate XL, long acting, (TOPROL XL) 50 mg 24 hr tablet Take 100 mg by mouth once daily. liothyronine (CYTOMEL) 25 mcg tablet Take 25 mcg by mouth once daily. levothyroxine (SYNTHROID) 125 mcg tablet Take 125 mcg by mouth daily before breakfast. hydrochlorothiazide (HYDRODIURIL, ESIDRIX) 25 mg tablet Take 25 mg by mouth once daily. meloxicam (MOBIC) 7.5 mg tablet take 1 tablet by mouth once daily (Patient not taking: Reported on 12/09/2022) zolpidem (AMBIEN) 5 mg tablet Take 1 tablet by mouth at bedtime as needed for up to 7 days. ondansetron (ZOFRAN) 4 mg tablet Take 1 tablet by mouth every 8 hours as needed for nausea/vomiting. oxyCODONE-acetaminophen (PERCOCET) 5-325 mg tablet Take 1 tablet by mouth every 6 hours as needed for pain. No current facility-administered medications for this visit. Physical Exam Vitals: [facility] 07/02/2014 Psych: Pleasant, good affect and mood General Appearance: Well appearing, alert, in no acute distress, well-hydrated, well nourished.. Skin: Skin color, texture, turgor normal, no suspicious rashes or lesions. Peripheral Pulses: Normal. Neurologic: Gait normal. Reflexes normal and symmetric. Sensation grossly intact.. Lymph Nodes: No cervical lymphadenopathy, No supraclavicular lymphadenopathy, No axillary lymphadenopathy., and No inguinal lymphadenopathy.. Respiratory: No recent pulmonary infection, hemoptysis, chronic cough, or shortness of breath at rest Rheumatologic: Joint deformities: right knee pain Right Knee Exam Tenderness The patient is experiencing tenderness in the medial joint line. Tests Caitlyn: Anterior - negative Posterior - negative Drawer: Anterior - negative Posterior - negative Patellar apprehension: positive Other Erythema: absent Sensation: normal Pulse: present Swelling: none Left Knee Exam Left knee exam is normal. Muscle Strength The patient has normal left knee strength. Tenderness The patient is experiencing no tenderness. Range of Motion Extension: normal Flexion: normal Tests Caitlyn: Anterior - negative Posterior - negative Drawer: Anterior - negative Posterior - negative Other Erythema: absent Sensation: normal Pulse: present Swelling: none Comments: Neg homans bilaterally Assessment and Plan Radiographs: No imaging to review. Impression: Encounter Diagnosis ICD-10-CM 1. S/P arthroscopic surgery of right knee Z98.890 2. Primary osteoarthritis of right knee M17.11 Today, in detail, through a thorough evaluation, we discussed possible etiologies of pain and our plans for further diagnostic and therapeutic interventions. We discussed strategies for decreasing pain and improving strength, stability and motion. Patient's questions were answered in detailed. Patient verbalizes understanding and agrees with the treatment plan as discussed. Discussed with patient possible options for treatment. Patient elected proceed with injection. Patient told not to submerge the injected area for 24 hours in a hot tub, or bath, injection may take 2 weeks for improvement to be noticed, follow-up in 2 -6 weeks if symptoms do not resolve. All questions answered patient agreement of plan. Apply ice Limit activities as discussed Rest Do not submerge limb in water for 24 hours Cont current meds Watch sugars/decrease carbs Call if warm/hot/red Discussed with patient that if the injection does not work after 2 to 4 weeks to come back for reevaluation. Discussed the next 3 days may feel worse before it feels better. Discussed if having continued pain to return. May get injection every 3 months Destiny Hagan.O. M.P.H. [facility] NoteHNO ID: [id number] Author: Gaby Valadez PA-C Service: ? Author Type: Physician House Coordinator Type: Progress Notes Filed: 04/29/2022 8:52 AM Note Text: Ms. Rosanne Banerjee presents today for right knee supartz injection #3/3. Today she rates her pain a 1 on a scale of 0 to 10. Large Joint Arthro/Inj: R knee joint Informed Consent Consent Obtained: Verbal Byron Protocol A moment to CARE was completed. SIGN IN Personnel directly involved with the procedure wore the appropriate PPE. Special Equipment: N/A Patient/Surrogate Stated/Verified: Patient name, Date of , Relevant allergies and Intended procedure TIME OUT Intended patient and procedure match the source document(s). Consent documented and matches the intended procedure. Relevant labs, photos, and/or imaging studies have been reviewed. Correct side/site marked and visible. Medications required for procedure verified. No fire risk assessment and interventions applicable. No implant(s) inserted. 04/29/2022 8:51 AM The procedure site was prepped in the usual sterile fashion. Site: R knee joint Medications: 2.5 mL sodium hyaluronate 10/ mg/mL Outcome: Tolerated well, no immediate complications Post-injection instructions were reviewed with the patient and the patient voiced understanding of these instructions. SIGN OUT No specimen collected. No instruments, equipment or retained foreign bodies applicable. Post-procedure follow-up management communicated and Plan of Care Visit completed when applicable [facility]12-09-2022 NoteHNO ID: [id number] Author: Destiny Randall, DO Service: ? Author Type: Physician Type: Progress Notes Filed: 04/28/2022 1:11 PM Note Text: Follow Up Visit Chief Complaint Rosanne Banerjee is a 61 year old female who presents today for follow up office visit. Patient presents with: Right Knee - Established Patient, Knee Pain, Supartz Fx injection #2 History of Present Illness PAIN EVALUATION 04/22/2022 1026 Pain Level: 2 Pain Location: Knee-Right Description: Aching Comments: SupartZ Fx injection #1: 04/15/22 HPI: Rosanne Banerjee is a 61 year old female for a follow up visit right knee Supartz Fx injection #2. Patient states her pain is mostly bothersome when she is walking or with certain movements. Pain history is noted as above. Denies calf pain, numbness, tingling, fever, chills or other constitutional symptoms. Is there any overall improvement in your condition? Yes, pain Any new injury, since being seen last: No REVIEW OF SYMPTOMS: Patient did not have, and does not currently have, any weight loss, malaise, fever, chills, headache, chest pain, chest pressure, palpitations, cough, shortness of breath, orthopnea, paroxsymal nocturnal dyspnea, nausea, vomiting, diarrhea, constipation, melena, hematochezia, urinary difficulties, prolonged bleeding, easily bruising, heat or cold intolerance, new onset joint pain or swelling, new onset extremity weakness or numbness, new onset auditory or visual disturbances, lightheadedness, dizziness, partial loss of consciousness or full loss of consciousness. Current Outpatient Medications Medication Sig meloxicam (MOBIC) 7.5 mg tablet take 1 tablet by mouth once daily Cholecalciferol, Vitamin D3, 50 mcg (2,000 unit) cap Take 1 capsule by mouth once daily. omega 1-lft-gje-fish oil 1,000 mg (250 mg-750 mg)/5 mL liqd Take 1 capsule by mouth once daily. melatonin 3 mg capsules Take 3 mg by mouth daily at bedtime. As needed fexofenadine HCl (SUSAN ORAL) Take by mouth. amLODIPine (NORVASC) 2.5 mg tablet Take 2.5 mg by mouth once daily. metoprolol succinate XL, long acting, (TOPROL XL) 50 mg 24 hr tablet Take 100 mg by mouth once daily. liothyronine (CYTOMEL) 25 mcg tablet Take 25 mcg by mouth once daily. levothyroxine (SYNTHROID) 125 mcg tablet Take 125 mcg by mouth daily before breakfast. hydrochlorothiazide (HYDRODIURIL, ESIDRIX) 25 mg tablet Take 25 mg by mouth once daily. zolpidem (AMBIEN) 5 mg tablet Take 1 tablet by mouth at bedtime as needed for up to 7 days. ondansetron (ZOFRAN) 4 mg tablet Take 1 tablet by mouth every 8 hours as needed for nausea/vomiting. oxyCODONE-acetaminophen (PERCOCET) 5-325 mg tablet Take 1 tablet by mouth every 6 hours as needed for pain. No current facility-administered medications for this visit. Physical Exam Vitals: [facility] 07/02/2014 Psych: Pleasant, good affect and mood General Appearance: Well appearing, alert, in no acute distress, well-hydrated, well nourished.. Skin: Skin color, texture, turgor normal, no suspicious rashes or lesions. Peripheral Pulses: Normal. Neurologic: Gait normal. Reflexes normal and symmetric. Sensation grossly intact.. Lymph Nodes: No cervical lymphadenopathy, No supraclavicular lymphadenopathy, No axillary lymphadenopathy., and No inguinal lymphadenopathy.. Respiratory: No recent pulmonary infection, hemoptysis, chronic cough, or shortness of breath at rest Rheumatologic: Joint deformities: right knee epain Right Knee Exam Tenderness The patient is experiencing tenderness in the medial joint line. Tests Caitlyn: Anterior - negative Posterior - negative Drawer: Anterior - negative Posterior - negative Patellar apprehension: positive Other Erythema: absent Sensation: normal Pulse: present Swelling: none Left Knee Exam Left knee exam is normal. Muscle Strength The patient has normal left knee strength. Tenderness The patient is experiencing no tenderness. Range of Motion Extension: normal Flexion: normal Tests Caitlyn: Anterior - negative Posterior - negative Drawer: Anterior - negative Posterior - negative Other Erythema: absent Sensation: normal Pulse: present Swelling: none Comments: Neg homans bilaterally Assessment and Plan Radiographs: No imaging to review. Impression: Encounter Diagnosis ICD-10-CM 1. Primary osteoarthritis of right knee M17.11 Large Joint Arthro/Inj: R knee joint Informed Consent Consent Obtained: Verbal Byron Protocol A moment to CARE was completed. SIGN IN Personnel directly involved with the procedure wore the appropriate PPE. Special Equipment: Yes Patient/Surrogate Stated/Verified: Date of , Relevant allergies, Intended procedure and Patient name TIME OUT Intended patient and procedure match the source document(s). Consent documented and matches the intended procedure. Relevant labs, photos, and/or imaging studies have been review (more content not included)...[facility]12-09-2022 History of Present illness Narrative* Yashirajeremy Randall, DO - 04/22/2022 10:29 AM ESTAssociated Order(s): Large Joint Arthro/Inj: R knee joint Post-Procedure Diagnose(s): Primary osteoarthritis of right knee Follow Up Visit Chief Complaint Rosanne Banerjee is a 61 year old female who presents today for follow up office visit. Patient presents with: Right Knee - Established Patient, Knee Pain, Supartz Fx injection #2 History of Present Illness PAIN EVALUATION 04/22/2022 1026 Pain Level: 2 Pain Location: Knee-Right Description: Aching Comments: SupartZ Fx injection #1: 04/15/22 HPI: Rosanne Banerjee is a 61 year old female for a follow up visit right knee Supartz Fx injection #2. Patient states her pain is mostly bothersome when she is walking or with certain movements. Pain history is noted as above. Denies calf pain, numbness, tingling, fever, chills or other constitutional symptoms. Is there any overall improvement in your condition? Yes, pain Any new injury, since being seen last: No REVIEW OF SYMPTOMS: Patient did not have, and does not currently have, any weight loss, malaise, fever, chills, headache, chest pain, chest pressure, palpitations, cough, shortness of breath, orthopnea, paroxsymal nocturnal dyspnea, nausea, vomiting, diarrhea, constipation, melena, hematochezia, urinary difficulties, prolonged bleeding, easily bruising, heat or cold intolerance, new onset joint pain or swelling, newonset extremity weakness or numbness, new onset auditory or visual disturbances, lightheadedness, dizziness, partial loss of consciousness or full loss of consciousness. Current Outpatient Medications Medication Sig meloxicam (MOBIC) 7.5 mg tablet take 1 tablet by mouth once daily Cholecalciferol, Vitamin D3, 50 mcg (2,000 unit) cap Take 1 capsule by mouth once daily. omega 7-quy-ucu-fish oil 1,000 mg (250 mg-750 mg)/5 mL liqd Take 1 capsule by mouth once daily. melatonin 3 mg capsules Take 3 mg by mouth daily at bedtime. As needed fexofenadine HCl (SUSAN ORAL) Take by mouth. amLODIPine (NORVASC) 2.5 mg tablet Take 2.5 mg by mouth once daily. metoprolol succinate XL, long acting, (TOPROL XL) 50 mg 24 hr tablet Take 100 mg by mouth once daily. liothyronine (CYTOMEL) 25 mcg tablet Take 25 mcg by mouth once daily. levothyroxine (SYNTHROID) 125 mcg tablet Take 125 mcg by mouth daily before breakfast. hydrochlorothiazide (HYDRODIURIL, ESIDRIX) 25 mg tablet Take 25 mg by mouth once daily. zolpidem (AMBIEN) 5 mg tablet Take 1 tablet by mouth at bedtime as needed for up to 7 days. ondansetron (ZOFRAN) 4 mg tablet Take 1 tablet by mouth every 8 hours as needed for nausea/vomiting. oxyCODONE-acetaminophen (PERCOCET) 5-325 mg tablet Take 1 tablet by mouth every 6 hours as needed for pain. No current facility-administered medications for this visit. Physical Exam Vitals: [facility] 07/02/2014 Psych: Pleasant, good affect and mood General Appearance: Well appearing, alert, in no acute distress, well-hydrated, well nourished.. Skin: Skin color, texture, turgor normal, no suspicious rashes or lesions. Peripheral Pulses: Normal. Neurologic: Gait normal. Reflexes normal and symmetric. Sensation grossly intact.. Lymph Nodes: No cervical lymphadenopathy, No supraclavicular lymphadenopathy, No axillary lymphadenopathy., and No inguinal lymphadenopathy.. Respiratory: No recent pulmonary infection, hemoptysis, chronic cough, or shortness of breath at rest Rheumatologic: Joint deformities: right knee epain Right Knee Exam Tenderness The patient is experiencing tenderness in the medial joint line. Tests Caitlyn: Anterior - negative Posterior - negative Drawer: Anterior - negative Posterior - negative Patellar apprehension: positive Other Erythema: absent Sensation: normal Pulse: present Swelling: none Left Knee Exam Left knee exam is normal. Muscle Strength The patient has normal left knee strength. Tenderness The patient is experiencing no tenderness. Range of Motion Extension: normal Flexion: normal Tests Caitlyn: Anterior - negative Posterior - negative Drawer: Anterior - negative Posterior - negative Other Erythema: absent Sensation: normal Pulse: present Swelling: none Comments: Neg homans bilaterally Assessment and Plan Radiographs: No imaging to review. Impression: Encounter Diagnosis ICD-10-CM 1. Primary osteoarthritis of right knee M17.11 Large Joint Arthro/Inj: R knee joint Informed Consent Consent Obtained: Verbal Byron Protocol A moment to CARE was completed. SIGN IN Personnel directly involved with the procedure wore the appropriate PPE. Special Equipment: Yes Patient/Surrogate Stated/Verified: Date of , Relevant allergies, Intended procedure and Patient name TIME OUT Intended patient and procedure match the source document(s). Consent documented and matches the intended procedure. Relevant labs, photos, and/or imaging studies have been reviewed. Correct side/site marked and visible. Medications required for procedure verified. Fire risk assessed and interventions discussed. No implant(s) inserted. 04/26/2022 2:52 PM The procedure site was prepped in the usual sterile fashion. Site: R knee joint Medications: 2.5 mL sodium hyaluronate 10/ mg/mL Outcome: Tolerated well, no immediate complications Post-injection instructions were reviewed with the patient and the patient voiced understanding of these instructions. SIGN OUT All specimen containers correctly labeled. All instruments, equipment, possible retained foreign bodies accounted for. Post-procedure follow-up management communicated and Plan of Care Visit completed when applicable Today, in detail, through a thorough evaluation, we discussed possible etiologies of pain and our plans for further diagnostic and therapeutic interventions. We discussed strategies for decreasing pain and improving strength, stability and motion. Patient's questions were answered in detailed. Patient verbalizes understanding and agrees with the treatment plan as discussed. /Discussed with patient possible options for treatment. Patient elected proceed with injection. Patient told not to submerge the injected area for 24 hours in a hot tub, or bath, injection may take 2weeks for improvement to be noticed, follow-up in 2 -6 weeks if symptoms do not resolve. All questions answered patient agreement of plan. Apply ice Limit activities as discussed Rest Do not submerge limb in water for 24 hours Cont current [place] ITs Watch sugars/decrease carbs Call if warm/hot/red Discussed with patient that if the injection does not work after 2 to 4 weeks to come back for reevaluation. Discussed the next 3 days may feel worse before it feels better. Discussed if having continued pain to return. May get injection every 3 months [facility] NoteHNO ID: [id number] Author: Gaby Valadez PA-C Service: ? Author Type: Physician House Coordinator Type: Progress Notes Filed: 04/15/2022 11:25 AM Note Text: Ms. Rosanne Banerjee presents today for right knee supartz injection #1/5. Today she rates her pain a 2 on a scale of 0 to 10. Large Joint Arthro/Inj: R knee joint Informed Consent Consent Obtained: Verbal Byron Protocol A moment to CARE was completed. SIGN IN Personnel directly involved with the procedure wore the appropriate PPE. Special Equipment: N/A Patient/Surrogate Stated/Verified: Patient name, Date of , Relevant allergies and Intended procedure TIME OUT Intended patient and procedure match the source document(s). Consent documented and matches the intended procedure. Relevant labs, photos, and/or imaging studies have been reviewed. Correct side/site marked and visible. Medications required for procedure verified. No fire risk assessment and interventions applicable. No implant(s) inserted. 04/15/2022 11:24 AM The procedure site was prepped in the usual sterile fashion. Site: R knee joint Medications: 2.5 mL sodium hyaluronate 10/ mg/mL Anesthetics: 3 mL lidocaine (PF) 10 mg/mL (1 %) Outcome: Tolerated well, no immediate complications Post-injection instructions were reviewed with the patient and the patient voiced understanding of these instructions. SIGN OUT No specimen collected. No instruments, equipment or retained foreign bodies applicable. Post-procedure follow-up management communicated and Plan of Care Visit completed when applicable [facility] History of Present illness Narrative* Gaby Valadez PA-C - 04/15/2022 11:24 AM ESTAssociated Order(s): Large Joint Arthro/Inj: R knee joint Post-Procedure Diagnose(s): Primary osteoarthritis of right knee Ms. Rosanne Banerjee presents today for right knee supartz injection #1/5. Today she rates her pain a 2 on a scale of 0 to 10. Large Joint Arthro/Inj: R knee joint Informed Consent Consent Obtained: Verbal Byron Protocol A moment to CARE was completed. SIGN IN Personnel directly involved with the procedure wore the appropriate PPE. Special Equipment: N/A Patient/Surrogate Stated/Verified: Patient name, Date of , Relevant allergies and Intended procedure TIME OUT Intended patient and procedure match the source document(s). Consent documented and matches the intended procedure. Relevant labs, photos, and/or imaging studies have been reviewed. Correct side/site marked and visible. Medications required for procedure verified. No fire risk assessment and interventions applicable. No implant(s) inserted. 04/15/2022 11:24 AM The procedure site was prepped in the usual sterile fashion. Site: R knee joint Medications: 2.5 mL sodium hyaluronate 10/ mg/mL Anesthetics: 3 mL lidocaine (PF) 10 mg/mL (1 %) Outcome: Tolerated well, no immediate complications Post-injection instructions were reviewed with the patient and the patient voiced understanding of these instructions. SIGN OUT No specimen collected. No instruments, equipment or retained foreign bodies applicable. Post-procedure follow-up management communicated and Plan of Care Visit completed when applicable Gaby Valadez PA-C [facility] Miscellaneous Notes* Telephone Encounter - Eligio Muniz - 03/24/2022 1:53 PM EST I called and scheduled patient, thanks Aubree! * Telephone Encounter - Eligio Muniz - 03/24/2022 12:53 PM EST Patient is scheduled on 04/15/[address] Randall for a Supartz injection in R knee. However Dr. Randall is not going to be in on 04/15/22 and I was wondering if another provider is able to give her the injection. Please advise, thank you! PSS please call patient if ok'd by PA to schedule with them. Thanks! documented in this [facility]10-13-[facility]22 NoteHNO ID: [id number] Author: Destiny Randall, DO Service: ? Author Type: Physician Type: Progress Notes Filed: 02/24/2022 10:33 AM Note Text: Follow Up Visit Chief Complaint Rosanne Banerjee is a 61 year old female who presents today for follow up office visit. Patient presents with: Right Knee - Established Patient, Knee Pain: 7 wks post injection Arthroscopy 07/27/21 History of Present Illness PAIN EVALUATION 02/24/2022 1012 Pain Level: 4 Pain Location: Knee-Right Description: Sore Duration Amount of Time: -- ongoing Frequency: Intermittent Intervention/Comfort measure: Medication;Other: See comment PT HPI: Rosanne Banerjee is a 61 year old female for a follow up visit rigth knee pain. Pain history is noted as above. Denies calf pain, numbness, tingling, fever, chills or other constitutional symptoms. Syupartz approved, is leaving in March Is there any overall improvement in your condition? Yes, Any new injury, since being seen last: No REVIEW OF SYMPTOMS: Patient did not have, and does not currently have, any weight loss, malaise, fever, chills, headache, chest pain, chest pressure, palpitations, cough, shortness of breath, orthopnea, paroxsymal nocturnal dyspnea, nausea, vomiting, diarrhea, constipation, melena, hematochezia, urinary difficulties, prolonged bleeding, easily bruising, heat or cold intolerance, new onset joint pain or swelling, new onset extremity weakness or numbness, new onset auditory or visual disturbances, lightheadedness, dizziness, partial loss of consciousness or full loss of consciousness. Current Outpatient Medications Medication Sig meloxicam (MOBIC) 7.5 mg tablet Take 1 tablet by mouth once daily. Cholecalciferol, Vitamin D3, 50 mcg (2,000 unit) cap Take 1 capsule by mouth once daily. omega 7-kgw-lmj-fish oil 1,000 mg (250 mg-750 mg)/5 mL liqd Take 1 capsule by mouth once daily. melatonin 3 mg capsules Take 3 mg by mouth daily at bedtime. As needed fexofenadine HCl (SUSAN ORAL) Take by mouth. amLODIPine (NORVASC) 2.5 mg tablet Take 2.5 mg by mouth once daily. metoprolol succinate XL, long acting, (TOPROL XL) 50 mg 24 hr tablet Take 100 mg by mouth once daily. liothyronine (CYTOMEL) 25 mcg tablet Take 25 mcg by mouth once daily. levothyroxine (SYNTHROID) 125 mcg tablet Take 125 mcg by mouth daily before breakfast. hydrochlorothiazide (HYDRODIURIL, ESIDRIX) 25 mg tablet Take 25 mg by mouth once daily. zolpidem (AMBIEN) 5 mg tablet Take 1 tablet by mouth at bedtime as needed for up to 7 days. ondansetron (ZOFRAN) 4 mg tablet Take 1 tablet by mouth every 8 hours as needed for nausea/vomiting. oxyCODONE-acetaminophen (PERCOCET) 5-325 mg tablet Take 1 tablet by mouth every 6 hours as needed for pain. No current facility-administered medications for this visit. Physical Exam Vitals: [facility] 07/02/2014 Psych: Pleasant, good affect and mood General Appearance: Well appearing, alert, in no acute distress, well-hydrated, well nourished.. Skin: Skin color, texture, turgor normal, no suspicious rashes or lesions. Peripheral Pulses: Normal. Neurologic: Gait normal. Reflexes normal and symmetric. Sensation grossly intact.. Lymph Nodes: No cervical lymphadenopathy, No supraclavicular lymphadenopathy, No axillary lymphadenopathy., and No inguinal lymphadenopathy.. Respiratory: No recent pulmonary infection, hemoptysis, chronic cough, or shortness of breath at rest Rheumatologic: Joint deformities: Right knee pain Right Knee Exam Right knee exam is normal. Muscle Strength The patient has normal right knee strength. Tenderness The patient is experiencing no tenderness. Range of Motion Extension: normal Flexion: normal Tests Caitlyn: Anterior - negative Posterior - negative Drawer: Anterior - negative Posterior - negative Other Erythema: absent Sensation: normal Pulse: present Swelling: none Left Knee Exam Left knee exam is normal. Muscle Strength The patient has normal left knee strength. Tenderness The patient is experiencing no tenderness. Range of Motion Extension: normal Flexion: normal Tests Caitlyn: Anterior - negative Posterior - negative Drawer: Anterior - negative Posterior - negative Other Erythema: absent Sensation: normal Pulse: present Swelling: none Comments: Neg homans bilaterally Assessment and Plan Radiographs: No imaging to review. Impression: Encounter Diagnosis ICD-10-CM 1. Weakness R53.1 2. Balance problems R26.89 3. Pes anserinus bursitis of right knee M70.51 4. Primary osteoarthritis of right knee M17.11 Today, in detail, through a thorough evaluation, we discussed possible etiologies of pain and our plans for further diagnostic and therapeutic interventions. We discussed strategies for decreasing pain and improving strength, stability and motion. Patient's questions were answered in detailed. Patient verbalizes underst (more content not included)...[facility]10-13-2022 NoteHNO ID: [id number] Author: Lexy Lawrence RN Service: ? Author Type: Registered Nurse Type: Progress Notes Filed: 02/24/2022 10:33 AM Note Text: Patient presents with: Right Knee - Established Patient, Knee Pain: 7 wks post injection Arthroscopy 07/27/21 AMB ROOMING INTAKE FLOWSHEET DATA Risk Screening Do you have concerns about personal safety or safety in the home?: No Pain Pain Level: 4 Pain Location: Knee-Right Description: Sore Duration Amount of Time: (ongoing) Frequency: Intermittent Intervention/Comfort measure: Medication, Other: See comment (PT) Patient is here for follow up on right knee pain. She received an injection 01/06/22 and states that it lasted until beginning of February, but has been bothering her again quite a bit. Patient has been taking meloxicam and going to physical therapy.[facility]09-21-20[facility] Miscellaneous Notes* Telephone Encounter - Musa Cage - 02/02/2022 2:07 PM EDT Fax came approving Rt knee sp. Scanned to chart. Please contact the patient for scheduling. documented in this encounterKn[facility]08-25-[facility]22 NoteHNO ID: [id number] Author: Destiny Randall, DO Service: ? Author Type: Physician Type: Progress Notes Filed: 01/27/2022 1:38 PM Note Text: Additional Injections: R Distal hamstring tendon for Knee Tendinopathy Informed Consent Consent Obtained: Verbal Byron Protocol A moment to CARE was completed. SIGN IN Sign in communication not applicable due to emergent procedure. Personnel directly involved with the procedure wore the appropriate PPE. Special Equipment: N/A Patient/Surrogate Stated/Verified: Patient name, Date of , Relevant allergies and Intended procedure TIME OUT Intended patient and procedure match the source document(s). Consent documented and matches the intended procedure. Relevant labs, photos, and/or imaging studies have been reviewed. Correct side/site marked and visible. Medications required for procedure verified. No fire risk assessment and interventions applicable. No implant(s) inserted. 01/06/2022 1:59 PM The procedure site was prepped in the usual sterile fashion. Site: R Distal hamstring tendon Medications: 40 mg triamcinolone acetonide 40 mg/mL Anesthetics: 4 mL bupivacaine (PF) 0.5 % (5 mg/mL) Outcome: tolerated well, no immediate complications Post-injection instructions were reviewed with the patient and the patient voiced understanding of these instructions. SIGN OUT All specimen containers correctly labeled. All instruments, equipment, possible retained foreign bodies accounted for. Post-procedure follow-up management communicated and Plan of Care Visit completed when applicable Follow Up Visit Chief Complaint Rosanne Banerjee is a 61 year old female who presents today for follow up office visit. Patient presents with: Right Knee - Follow Up, Knee Pain History of Present Illness PAIN EVALUATION 01/06/2022 1057 Pain Level: 2 only when walking Pain Location: Knee-Right Description: Aching;Dull;Sore Duration Amount of Time: -- DOS: 07/27 Frequency: Intermittent Intervention/Comfort measure: Reposition;Relaxation;Other: See comment PT HPI: Rosanne Banerjee is a 61 year old female for a follow up visit right knee pain. Patient complains of some knee pain today on the medial/anterior portion of her knee. Participated in PT 4x a week, two days water therapy and two days traditional. Only has pain when walking. Pain history is noted as above. Denies calf pain, numbness, tingling, fever, chills or other constitutional symptoms. Advancing out of water therapy, to land therapy with PT- wants to do steps Is there any overall improvement in your condition? No Any new injury, since being seen last: No REVIEW OF SYMPTOMS: Patient did not have, and does not currently have, any weight loss, malaise, fever, chills, headache, chest pain, chest pressure, palpitations, cough, shortness of breath, orthopnea, paroxsymal nocturnal dyspnea, nausea, vomiting, diarrhea, constipation, melena, hematochezia, urinary difficulties, prolonged bleeding, easily bruising, heat or cold intolerance, new onset joint pain or swelling, new onset extremity weakness or numbness, new onset auditory or visual disturbances, lightheadedness, dizziness, partial loss of consciousness or full loss of consciousness. Current Outpatient Medications Medication Sig Cholecalciferol, Vitamin D3, 50 mcg (2,000 unit) cap Take 1 capsule by mouth once daily. omega 9-sps-dfy-fish oil 1,000 mg (250 mg-750 mg)/5 mL liqd Take 1 capsule by mouth once daily. melatonin 3 mg capsules Take 3 mg by mouth daily at bedtime. As needed fexofenadine HCl (SUSAN ORAL) Take by mouth. amLODIPine (NORVASC) 2.5 mg tablet Take 2.5 mg by mouth once daily. metoprolol succinate XL, long acting, (TOPROL XL) 50 mg 24 hr tablet Take 100 mg by mouth once daily. liothyronine (CYTOMEL) 25 mcg tablet Take 25 mcg by mouth once daily. levothyroxine (SYNTHROID) 125 mcg tablet Take 125 mcg by mouth daily before breakfast. hydrochlorothiazide (HYDRODIURIL, ESIDRIX) 25 mg tablet Take 25 mg by mouth once daily. meloxicam (MOBIC) 7.5 mg tablet Take 1 tablet by mouth once daily. zolpidem (AMBIEN) 5 mg tablet Take 1 tablet by mouth at bedtime as needed for up to 7 days. ondansetron (ZOFRAN) 4 mg tablet Take 1 tablet by mouth every 8 hours as needed for nausea/vomiting. oxyCODONE-acetaminophen (PERCOCET) 5-325 mg tablet Take 1 tablet by mouth every 6 hours as needed for pain. No current facility-administered medications for this visit. Physical Exam Vitals: [facility] 07/02/2014 Psych: Pleasant, good affect and mood General Appearance: Well appearing, alert, in no acute distress, well-hydrated, well nourished.. Skin: Skin color, texture, turgor normal, no suspicious rashes or lesions. Peripheral Pulses: Normal. Neurologic: Gait normal. Reflexes normal and symmetric. Sensation grossly intact.. Lymph Nodes: No cervical lymphadenopathy, No supraclavicular lymphaden (more content not included)...[facility]08-[facility] History of Present illness Narrative* Destiny Mendozazenaidaemmett, DO - 01/06/2022 11:00 AM EDTAssociated Order(s): Additional Injections: R Distal hamstring tendon Post-Procedure Diagnose(s): Pes anserinus bursitis of right knee Images from the original note were not included. Additional Injections: R Distal hamstring tendon for Knee Tendinopathy Informed Consent Consent Obtained: Verbal Byron Protocol A moment to CARE was completed. SIGN IN Sign in communication not applicable due to emergent procedure. Personnel directly involved with the procedure wore the appropriate PPE. Special Equipment: N/A Patient/Surrogate Stated/Verified: Patient name, Date of , Relevant allergies and Intended procedure TIME OUT Intended patient and procedure match the source document(s). Consent documented and matches the intended procedure. Relevant labs, photos, and/or imaging studies have been reviewed. Correct side/site marked and visible. Medications required for procedure verified. No fire risk assessment and interventions applicable. No implant(s) inserted. 01/06/2022 1:59 PM The procedure site was prepped in the usual sterile fashion. Site: R Distal hamstring tendon Medications: 40 mg triamcinolone acetonide 40 mg/mL Anesthetics: 4 mL bupivacaine (PF) 0.5 % (5 mg/mL) Outcome: tolerated well, no immediate complications Post-injection instructions were reviewed with the patient and the patient voiced understanding of these instructions. SIGN OUT All specimen containers correctly labeled. All instruments, equipment, possible retained foreign bodies accounted for. Post-procedure follow-up management communicated and Plan of Care Visit completed when applicable Follow Up Visit Chief Complaint Rosanne Banerjee is a 61 year old female who presents today for follow up office visit. Patient presents with: Right Knee - Follow Up, Knee Pain History of Present Illness PAIN EVALUATION 01/06/2022 1057 Pain Level: 2 only when walking Pain Location: Knee-Right Description: Aching;Dull;Sore Duration Amount of Time: -- DOS: 3/15 Frequency: Intermittent Intervention/Comfort measure: Reposition;Relaxation;Other: See comment PT HPI: Rosanne Banerjee is a 61 year old female for a follow up visit right knee pain. Patient complainsof some knee pain today on the medial/anterior portion of her knee. Participated in PT 4x a week, two days water therapy and two days traditional. Only has pain when walking. Pain history is noted asabove. Denies calf pain, numbness, tingling, fever, chills or other constitutional symptoms. Advancing out of water therapy, to land therapy with PT- wants to do steps Is there any overall improvement in your condition? No Any new injury, since being seen last: No REVIEW OF SYMPTOMS: Patient did not have, and does not currently have, any weight loss, malaise, fever, chills, headache, chest pain, chest pressure, palpitations, cough, shortness of breath, orthopnea, paroxsymal nocturnal dyspnea, nausea, vomiting, diarrhea, constipation, melena, hematochezia, urinary difficulties, prolonged bleeding, easily bruising, heat or cold intolerance, new onset joint pain or swelling, newonset extremity weakness or numbness, new onset auditory or visual disturbances, lightheadedness, dizziness, partial loss of consciousness or full loss of consciousness. Current Outpatient Medications Medication Sig Cholecalciferol, Vitamin D3, 50 mcg (2,000 unit) cap Take 1 capsule by mouth once daily. omega 5-zum-dcf-fish oil 1,000 mg (250 mg-750 mg)/5 mL liqd Take 1 capsule by mouth once daily. melatonin 3 mg capsules Take 3 mg by mouth daily at bedtime. As needed fexofenadine HCl (SUSAN ORAL) Take by mouth. amLODIPine (NORVASC) 2.5 mg tablet Take 2.5 mg by mouth once daily. metoprolol succinate XL, long acting, (TOPROL XL) 50 mg 24 hr tablet Take 100 mg by mouth once daily. liothyronine (CYTOMEL) 25 mcg tablet Take 25 mcg by mouth once daily. levothyroxine (SYNTHROID) 125 mcg tablet Take 125 mcg by mouth daily before breakfast. hydrochlorothiazide (HYDRODIURIL, ESIDRIX) 25 mg tablet Take 25 mg by mouth once daily. meloxicam (MOBIC) 7.5 mg tablet Take 1 tablet by mouth once daily. zolpidem (AMBIEN) 5 mg tablet Take 1 tablet by mouth at bedtime as needed for up to 7 days. ondansetron (ZOFRAN) 4 mg tablet Take 1 tablet by mouth every 8 hours as needed for nausea/vomiting. oxyCODONE-acetaminophen (PERCOCET) 5-325 mg tablet Take 1 tablet by mouth every 6 hours as needed for pain. No current facility-administered medications for this visit. Physical Exam Vitals: [facility] 07/02/2014 Psych: Pleasant, good affect and mood General Appearance: Well appearing, alert, in no acute distress, well-hydrated, well nourished.. Skin: Skin color, texture, turgor normal, no suspicious rashes or lesions. Peripheral Pulses: Normal. Neurologic: Gait normal. Reflexes normal and symmetric. Sensation grossly intact.. Lymph Nodes: No cervical lymphadenopathy, No supraclavicular lymphadenopathy, No axillary lymphadenopathy., and No inguinal lymphadenopathy.. Respiratory: No recent pulmonary infection, hemoptysis, chronic cough, or shortness of breath at rest Rheumatologic: Joint deformities: right knee pain Ortho Exam Assessment and Plan Radiographs: No imaging to review. Impression: Encounter Diagnosis ICD-10-CM 1. Pes anserinus bursitis of right knee M70.51 Today, in detail, through a thorough evaluation, we discussed possible etiologies of pain and our plans for further diagnostic and therapeutic interventions. We discussed strategies for decreasing pain and improving strength, stability and motion. Patient's questions were answered in detailed. Patient verbalizes understanding and agrees with the treatment plan as discussed. Discussed with patient possible options for treatment. Patient elected proceed with injection. Patient told not to submerge the injected area for 24 hours in a hot tub, or bath, injection may take 2 weeks for improvement to be noticed, follow-up in 2 -6 weeks if symptoms do not resolve. All questions answered patient agreement of plan. Apply ice Limit activities as discussed Rest Do not submerge limb in water for 24 hours Cont current meds Watch sugars/decrease carbs Call if warm/hot/red Discussed with patient that if the injection does not work after 2 to 4 weeks to come back for reevaluation. Discussed the next 3 days may feel worse before it feels better. Discussed if having continued pain to return. May get injection every 3 months Water therapy adv to steps IF for weight mgmt/healthy lifestyle changes If in 6 weeks would like steroid injection, would do at that time Rationale for Viscosupplementation: Initial Request As a part of a multimodal treatment plan, we are requesting authorization of hyaluronic acid viscosupplementation injections for the improvement of symptoms related to osteoarthritis. Authorization is being requested for treatment of the Right knee. Rationale for authorization of these injections is based on the following elements: Signs and Symptoms Length of symptoms > 3 months Pain interferes with ADLs? Yes Radiographic evidence of OA? Yes Previous Treatments Bracing attempted? Yes Formal Physical Therapy (PT)/ Home Exercise Program (HEP) attempted? Patient completed a comprehensive PT program with compliance to HEP NSAID medication attempted? Yes Corticosteroid injection attempted? Patient has had a previous CSI with intermittent relief Weight management attempted? Yes Patient continues to be symptomatic despite above treatment attempts. Requested Viscosupplementation Preferred product: Euflexxa Alternative product: Durolane or payor preferred documented [facility] this [facility] History of Present illness Narrative* Destiny Randall DO - 10/01/2021 11:59 AM EDT Images from the original note were not included. Follow Up Visit Chief Complaint Rosanne Banerjee is a 60 year old female who presents today for follow up office visit. Patient presents with: Right Knee - Knee Pain, Post Op History of Present Illness PAIN EVALUATION 10/01/2021 1149 Pain Level: 2 while walking Pain Location: Knee-Right Description: Aching;Dull;Sore Duration Amount of Time: DOS: 07/27/21 Frequency: Intermittent Intervention/Comfort measure: Reposition;Relaxation;Medication;Cold;Other: See comment crutch, physical therapy HPI: Rosanne Banerjee is a 60 year old female for a follow up visit S/P Right knee medial meniscus root repair, partial medial meniscectomy, chondroplasty, ext synovectomy. Patient is currently in physical therapy. Doing well, still using a single crutch to take some weigh off of knee while ambulating. Pain history is noted as above. Denies calf pain, numbness, tingling, fever, chills or other constitutional symptoms.land therapy. Is there any overall improvement in your condition? Yes, physical therapy Any new injury, since being seen last: No REVIEW OF SYMPTOMS: Patient did not have, and does not currently have, any weight loss, malaise, fever, chills, headache, chest pain, chest pressure, palpitations, cough, shortness of breath, orthopnea, paroxsymal nocturnal dyspnea, nausea, vomiting, diarrhea, constipation, melena, hematochezia, urinary difficulties, prolonged bleeding, easily bruising, heat or cold intolerance, new onset joint pain or swelling, newonset extremity weakness or numbness, new onset auditory or visual disturbances, lightheadedness, dizziness, partial loss of consciousness or full loss of consciousness. Current Outpatient Medications Medication Sig Cholecalciferol, Vitamin D3, (VITAMIN D-3) 50 mcg (2,000 unit) cap Take 1 capsule by mouth once daily. omega 3-rtu-vld-fish oil 1,000 mg (250 mg-750 mg)/5 mL liqd Take 1 capsule by mouth once daily. melatonin 3 mg capsules Take 3 mg by mouth daily at bedtime. As needed fexofenadine HCl (SUSAN ORAL) Take by mouth. amLODIPine (NORVASC) 2.5 mg tablet Take 2.5 mg by mouth once daily. metoprolol succinate XL, long acting, (TOPROL XL) 50 mg 24 hr tablet Take 100 mg by mouth once daily. liothyronine (CYTOMEL) 25 mcg tablet Take 25 mcg by mouth once daily. levothyroxine (SYNTHROID) 125 mcg tablet Take 125 mcg by mouth daily before breakfast. hydrochlorothiazide (HYDRODIURIL, ESIDRIX) 25 mg tablet Take 25 mg by mouth once daily. zolpidem (AMBIEN) 5 mg tablet Take 1 tablet by mouth at bedtime as needed for up to 7 days. ondansetron (ZOFRAN) 4 mg tablet Take 1 tablet by mouth every 8 hours as needed for nausea/vomiting. oxyCODONE-acetaminophen (PERCOCET) 5-325 mg tablet Take 1 tablet by mouth every 6 hours as needed for pain. No current facility-administered medications for this visit. Physical Exam Vitals: [facility] 07/02/2014 Psych: Pleasant, good affect and mood General Appearance: Well appearing, alert, in no acute distress, well-hydrated, well nourished.. Skin: Skin color, texture, turgor normal, no suspicious rashes or lesions. Peripheral Pulses: Normal. Neurologic: Gait normal. Reflexes normal and symmetric. Sensation grossly intact.. Lymph Nodes: No cervical lymphadenopathy, No supraclavicular lymphadenopathy, No axillary lymphadenopathy. and No inguinal lymphadenopathy.. Respiratory: No recent pulmonary infection, hemoptysis, chronic cough, or shortness of breath at rest Rheumatologic: Joint deformities: Right knee pain Right Knee Exam Right knee exam is normal. Muscle Strength The patient has normal right knee strength. Tenderness The patient is experiencing no tenderness. Range of Motion Extension: normal Flexion: normal Tests Caitlny: Anterior - negative Posterior - negative Drawer: Anterior - negative Posterior - negative Other Erythema: absent Sensation: normal Pulse: present Swelling: none Left Knee Exam Left knee exam is normal. Muscle Strength The patient has normal left knee strength. Tenderness The patient is experiencing no tenderness. Range of Motion Extension: normal Flexion: normal Tests Caitlyn: Anterior - negative Posterior - negative Drawer: Anterior - negative Posterior - negative Other Erythema: absent Sensation: normal Pulse: present Swelling: none Comments: Neg homans bilaterally Assessment and Plan Radiographs: No imaging to review. Impression: Encounter Diagnosis ICD-10-CM 1. Chronic pain of right knee M25.561 G89.29 2. 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 All questions answered. No deep knee squats or lunges Today, in detail, through a thorough evaluation, we discussed possible etiologies of pain and our plans for further diagnostic and therapeutic interventions. We discussed strategies for decreasing pain and improving strength, stability and motion. Patient's questions were answered in detailed. Patient verbalizes understanding and agrees with the treatment plan as discussed. [facility] History of Present illness Narrative* Alberto Caldwell PA-C - 09/08/2021 1:42 PM EDT Images from the original note were not included. POST OP Alberto Caldwell PA-C Department of Orthopaedics Orthopaedics [address] [address] Dept: [phone] Ms. Banerjee presents today for her 6 week visit from: S/P Right knee medial meniscus root repair, partial medial meniscectomy, chondroplasty, ext synovectomy with Dr. Randall DOS: 07/27/2021 History: PAIN EVALUATION 09/08/2021 1335 Pain Level: 0 Pain Location: Knee-Right Description: Aching;Sore Duration Amount of Time: DOS: 08/11/21 Frequency: Intermittent Intervention/Comfort measure: Reposition;Relaxation;Cold;Medication;Other: See comment physical therapy The patient denies swelling, warmth, discharge, drainage, fevers, chills, sweats. She reports compliance with crutches, PT, and weight bearing status She reports no change in past medical & surgical history, medications, allergies, social history, family history and review of systems since last visit, with the exception of the following: None Review of Systems All other systems reviewed and are negative. Radiographs: Not applicable Physical Examination: Ambulates with crutches Knee ROM 0-100 No tenderness of the knee Neurovascularly intact Positive EHL, FHL, AT, GS, Quads, and HS SILT throughout Positive distal pulses Negative Alok's, calf tenderness or palpable cords PROCEDURE: Not applicable Plan: Progressing as expected in the immediate post operative period. Post op care discussed, all questions answered. Continue with physical therapy Gradually wean out of brace and begin WBAT on operative leg Follow up in [address] Prakash Caldwell PA-C [facility] History of Present illness Narrative* Destiny Randall DO - 08/11/2021 10:38 AM EDT Images from the original note were not included. Follow Up Visit Chief Complaint Rosanne Banerjee is a 60 year old female who presents today for follow up office visit. Patient presents with: Right Knee - Post Op, Knee Pain, Swelling History of Present Illness PAIN EVALUATION 08/11/2021 1039 Pain Level: 0 Pain Location: Knee-Right Description: Aching;Sore Duration Amount of Time: DOS: 07/27/21 Intervention/Comfort measure: Relaxation;Reposition;Cold;Medication;Other: See comment brace HPI: Rosanne Banerjee is a 60 year old female for a follow up visit S/P Right knee medial meniscus root repair, partial medial meniscectomy, chondroplasty, ext synovectomy. Patient states she is doing well. Pain history is noted as above. Denies calf pain, numbness, tingling, fever, chills or other constitutional symptoms. Is there any overall improvement in your condition? Yes, Any new injury, since being seen last: No REVIEW OF SYMPTOMS: Patient did not have, and does not currently have, any weight loss, malaise, fever, chills, headache, chest pain, chest pressure, palpitations, cough, shortness of breath, orthopnea, paroxsymal nocturnal dyspnea, nausea, vomiting, diarrhea, constipation, melena, hematochezia, urinary difficulties, prolonged bleeding, easily bruising, heat or cold intolerance, new onset joint pain or swelling, newonset extremity weakness or numbness, new onset auditory or visual disturbances, lightheadedness, dizziness, partial loss of consciousness or full loss of consciousness. Current Outpatient Medications Medication Sig Cholecalciferol, Vitamin D3, (VITAMIN D-3) 50 mcg (2,000 unit) cap Take 1 capsule by mouth once daily. omega 5-sil-xug-fish oil 1,000 mg (250 mg-750 mg)/5 mL liqd Take 1 capsule by mouth once daily. melatonin 3 mg capsules Take 3 mg by mouth daily at bedtime. As needed fexofenadine HCl (SUSAN ORAL) Take by mouth. amLODIPine (NORVASC) 2.5 mg tablet Take 2.5 mg by mouth once daily. metoprolol succinate XL, long acting, (TOPROL XL) 50 mg 24 hr tablet Take 100 mg by mouth once daily. liothyronine (CYTOMEL) 25 mcg tablet Take 25 mcg by mouth once daily. levothyroxine (SYNTHROID) 125 mcg tablet Take 125 mcg by mouth daily before breakfast. hydrochlorothiazide (HYDRODIURIL, ESIDRIX) 25 mg tablet Take 25 mg by mouth once daily. zolpidem (AMBIEN) 5 mg tablet Take 1 tablet by mouth at bedtime as needed for up to 7 days. ondansetron (ZOFRAN) 4 mg tablet Take 1 tablet by mouth every 8 hours as needed for nausea/vomiting. oxyCODONE-acetaminophen (PERCOCET) 5-325 mg tablet Take 1 tablet by mouth every 6 hours as needed for pain. No current facility-administered medications for this visit. Physical Exam Vitals: [facility] 07/02/2014 Psych: Pleasant, good affect and mood General Appearance: Well appearing, alert, in no acute distress, well-hydrated, well nourished.. Skin: Skin color, texture, turgor normal, no suspicious rashes or lesions. Peripheral Pulses: Normal. Neurologic: Gait normal. Reflexes normal and symmetric. Sensation grossly intact.. Lymph Nodes: No cervical lymphadenopathy, No supraclavicular lymphadenopathy, No axillary lymphadenopathy. and No inguinal lymphadenopathy.. Respiratory: No recent pulmonary infection, hemoptysis, chronic cough, or shortness of breath at rest Rheumatologic: Joint deformities: Right knee pain Right Knee Exam Tenderness The patient is experiencing tenderness in the medial joint line. Range of Motion Extension: abnormal Flexion: abnormal Tests Caitlyn: Anterior - negative Posterior - negative Drawer: Anterior - negative Posterior - negative Other Erythema: absent Scars: present Sensation: normal Pulse: present Swelling: mild Comments: No signs of infection/no erythema Left Knee Exam Left knee exam is normal. Muscle Strength The patient has normal left knee strength. Tenderness The patient is experiencing no tenderness. Range of Motion Extension: normal Flexion: normal Tests Caitlyn: Anterior - negative Posterior - negative Drawer: Anterior - negative Posterior - negative Other Erythema: absent Sensation: normal Pulse: present Swelling: none Comments: Neg homans bilaterally Assessment and Plan Radiographs: No imaging to review. Impression: Encounter Diagnosis ICD-10-CM 1. Other tear of medial meniscus of right knee as current injury, initial encounter S83.241A CONSULT TO PHYSICAL THERAPY Discussed intraop findings, need to find surgical images as not in chart Discussed ttwb right leg for 4 more weeks PT prescription today Patient aware and in agreement of plan. All questions answered. ttwb 4 weeks more, brace locked in extension during ambulation afterwards, then wean out of brace Going to see pcp for scab on breast that started on e week after surgery Today, in detail, through a thorough evaluation, we discussed possible etiologies of pain and our plans for further diagnostic and therapeutic interventions. We discussed strategies for decreasing pain and improving strength, stability and motion. Patient's questions were answered in detailed. Patient verbalizes understanding and agrees with the treatment plan as discussed. [facility] NoteHNO ID: [id number] Author: Neva Pace APRN.[email or web address] CONSULTANT Service: Anesthesiology Author Type: Nurse Credit Card Specialist Type: Anesthesia Procedure Notes Filed: 07/27/2021 12:32 PM Note Text: ANESTHESIOLOGY PROCEDURE NOTE Airway General Information Procedure Start Time/Medication Administration: 07/27/2021 12:18 PM Patient location during procedure: OR Timeout Performed Pre-procedure: timeout performed Consent Obtained: Yes Patient identity confirmed: arm band and patient Staffing AS400 CONSULTANT: Neva Pace APRN.[email or web address] CONSULTANT Performed by: MARI Indications and Patient Condition Preoxygenated: yes Patient position: sniffing Manual In-Line Stabilization: No Difficult Mask: No Indications for airway management: anesthesia anesthesia circuit Method: asleep Cricoid Pressure: No Final Airway Details Final airway type: supraglottic airway Number of attempts at approach: 1 Final Supraglottic Airway: i-gel Size 4 Seal Adequate: yes Airway not difficult SIGNATURE: Neva Pace APRN.[email or web address] CONSULTANT PATIENT NAME: Rosanne Banerjee DATE: July 27, 2021 TIME: 12:32 PM CSN: [id number] History of Past illness Narrative* Problem Noted Date Resolved Date Tear of medial meniscus of right knee 07/23/2021 07/27/2021 documented as of this encounter (statuses as of 08/11/2021) [facility] of [facility] illness Narrative* Problem Noted Date Resolved Date Tear of medial meniscus of right knee 07/23/2021 07/27/2021 documented as of this encounter (statuses as of 09/08/2021) [facility] of Past illness Narrative* Problem Noted Date Resolved Date Tear of medial meniscus of right knee 07/23/2021 07/27/2021 documented as of this encounter (statuses as of 10/01/2021) [facility] of [facility] illness Narrative* Problem Noted Date Resolved Date Tear of medial meniscus of right knee 07/23/2021 07/27/2021 documented as of this encounter (statuses as of 01/07/2022) [facility] of Past illness Narrative* Problem Noted Date Resolved Date Tear of medial meniscus of right knee 07/23/2021 07/27/2021 documented as of this encounter (statuses as of 03/24/2022) [facility] Narrative* Problem Noted Date Resolved Date Tear of medial meniscus of right knee 07/23/2021 07/27/2021 documented as of this encounter (statuses as of 04/15/2022) [facility] of [facility] illness Narrative* Problem Noted Date Resolved Date Tear of medial meniscus of right knee 07/23/2021 07/27/2021 documented as of this encounter (statuses as of 04/26/2022) [facility] of [facility] illness Narrative* Problem Noted Date Resolved Date Tear of medial meniscus of right knee 07/23/2021 07/27/2021 documented as of this encounter (statuses as of 11/11/2022) [facility] of Past illness Narrative* Problem Noted Date Diagnosed Date Resolved Date Tear of medial meniscus of right knee 07/23/2021 07/27/2021 documented as of this encounter (statuses as of 12/11/2022) [facility] of Past illness Narrative* Problem Noted Date Diagnosed Date Resolved Date Tear of medial meniscus of right knee 07/23/2021 07/27/2021 documented as of this encounter (statuses as of 12/16/2022) [facility] of Past illness Narrative* Problem Noted Date Diagnosed Date Resolved Date Tear of medial meniscus of right knee 07/23/2021 07/27/2021 documented as of this encounter (statuses as of 12/24/2022) [facility] History of Present illness Narrative* Jaye Don, RT(R) - 10/26/2020 11:10 AM EDT Radiology Service Progress Note PATIENT NAME: Rosanne Banerjee DATE OF SERVICE: October 26, 2020 TIME: 11:29 AM PATIENT IDENTITY VERIFICATION COMPLETED USING TWO (2) IDENTIFIERS: Name and Date of confirmedby patient verbally. FALL SCREENING: Has the patient had 2 falls in the last year or 1 fall with injury or currently using an Ambulatory Assistive Device (Walker, Cane, Wheelchair, Crutches, etc.)? No PATIENT GENDER DATA: Female. status: : No status: NO. PATIENT RELEVANT IMPLANT DATA REVIEWED: Not Applicable RADIOLOGY DEPARTMENT: General X-ray: Exam(s) Completed: Upper Extremity X- Ray(s): Fingers/Thumb, left PERIPHERAL IV DATA: Not applicable SIGNED BY: RT Jeffrey(R) October 26, 2020 11:29 AM [facility] [place] [facility]* Diagnosis Other tear of medial meniscus of right knee as current injury, initial encounter- Primary documented [facility] this [facility] [place] [facility]* Diagnosis S/P arthroscopic surgery of right knee- Primary Other postprocedural status documented in this encounter [facility] note* Diagnosis Chronic pain of right knee- Primary Tear of medial meniscus of right knee, current, unspecified tear type, subsequent encounter documented in this encounter [facility] noteNo assessment information availableWCleveland Clinic Mentor [facility] Work Phone: Evaluation note* Diagnosis Pes anserinus bursitis of right knee- Primary Pes anserinus tendinitis or bursitis documented in this [facility] [place] [facility]* Diagnosis Primary osteoarthritis of right knee- Primary Primary localized osteoarthrosis, lower leg [facility] [place] [facility]* Diagnosis Primary osteoarthritis of right knee- Primary Primary localized osteoarthrosis, lower leg [facility] [place] [facility]* Diagnosis S/P arthroscopic surgery of right knee- Primary Other postprocedural status Primary osteoarthritis of right knee Primary localized osteoarthrosis, lower leg documented in this encounter [facility] note* Diagnosis Primary osteoarthritis of right knee- Primary Primary localized osteoarthrosis, lower leg documented [facility] this [facility] [place] [facility]* Diagnosis Primary osteoarthritis of right knee- Primary Primary localized osteoarthrosis, lower leg documented in this encounter [facility] note* Diagnosis Thumb injury, left, initial encounter Pre-operative examination- Primary Preoperative examination, unspecified Tear of medial meniscus of right knee, unspecified tear type, unspecified whether old or current tear, subsequent encounter Essential (primary) hypertension Unspecified essential hypertension Hypothyroidism, unspecified type Morbid obesity (HCC) Morbid obesity documented in this encounter [facility] Discharge instructionsAmbulatory Orders* Occupational Therapy Referral Location: None Selected [facility] Work Phone: Reason for referral (narrative)No reason for referral information availableWCleveland Clinic Ment[facility] Work Phone: Summary Purpose Family History No Family History Records Found Relationship Condition Age at Onset Recorded Date/T maria esther mother Hypertension Unknown Cerebrovascular accident (CVA) Unknown Diabetes mellitus Unknown father Hypertension Unknown Malignant neoplasm Unknown grandmother Coronary artery disease Unknown Advance Directives No Advanced Directives Records FoundDocuments on File Type Date Recorded 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 Advance Directives and Livin g Will 07/16/2020 12:00 AM Documents on File Type Date Recorded 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 Advance Directive(s) 07/27/2021 11:17 AM Advance Directive(s) 07/20/2021 10:03 AM Documents on File Type Date Recorded 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 Advance Directive(s) 07/27/2021 11:17 AM Advance Directive(s) 07/20/2021 10:03 AM Advance Directive Response Recorded Date/ Time Advance Directives Yes April 16, 2021 10:43am Living Will Yes April 16 10:43am Power of Molasses Feed Mixer Yes April 16, 2021 10:43am Advance Directive Response Recorded Date/ Time Advance Directives Yes April 16, 2021 9:43am Living Will Yes April 16 9:43am Power of Molasses Feed Mixer Yes April 16, 2021 9:43am Advance Directive Response Recorded Date/ Time Advance Directives Yes September 22 10:42am Living Will Yes September 22, 2022 1 0:42am Power of Molasses Feed Mixer Yes September 22, 2022 10:42am Advance Directive Response Recorded Date/ Time Advance Directives Yes September 13, 2024 2:27pm Do you have a Healthcare Power of Molasses Feed Mixer? No September 13, 2024 1:20pm Do you have a Healthcare Power of Molasses Feed Mixer? Yes September 19, 2024 12:25pm Reason for Referral Specialty Diagnoses / Procedures Referred By Jessica t Referred To Contact [facility] Diagnoses Other tear of medial meniscus of right knee as current injury, initial encounter Procedures CONSULT TO PHYSICAL THERAPY PHYSICAL THERAPY EVALUATION HIGH COMPLEX 45 MINS Destiny Randall, [address] [place] [address] [facility] [place] [address] [place] [address] Referral ID Status Reason Start Date Expiration Date Visits Requested Visits Authorized [id number] Pending Review Auto-Generat ed Referral 08/11/2021 08/11/2022 1 1 Specialty Diagnoses / Procedures Referred By Jessica shore Referred To Contact [facility] Diagnoses Chronic pain of right knee Tear of medial meniscus of right knee, current, unspecified tear type, subsequent encounter Procedures CONSULT TO PHYSICAL THERAPY PHYSICAL THERAPY EVALUATION HIGH COMPLEX 45 MINS Destiny Randall, [address] [place] [address] [facility] [place] [address] [place] [address] Referral ID Status Reason Start Date Expiration Date Visits Requested Visits Authorized [id number] Pending Review Auto-Generat ed Referral 10/01/2021 10/01/2022 1 1 Chief Complaint and Reason for Visit Chief Complaint RT KNEE PAIN/ RX HER E Chief Complaint SCREENING RT KNEE PAIN/ RX HERE Chief Complaint SCREENING RT KNEE PAIN/ RX HERE RT KNEE PAIN/ RX HERE Chief Complaint Cardiac murmur, unsp ecified Chief Complaint Cardiac murmur, unsp ecified SCREENING Chief Complaint Admit Date September 13, 2024 1:04pm LEFT WRIST September 18, 2024 8:31am ORIF, Left Wrist September 23, 2024 11:10 am ORIF, Left Wrist September 23, 2024 1:08p m Reason for Visit Admit Date Distal radius fracture, left September 18 8:31am Chief Complaint Admit Date September 13, 2024 1:04pm LEFT WRIST September 18, 2024 8:31am PREOP September 19, 2024 1:44pm ORIF, Left Wrist September 23, 2024 11:10 am ORIF, Left Wrist September 23, 2024 1:08p m LEFT WRIST September 30, 2024 10:04 am Reason for Visit Admit Date Distal radius fracture, left September 18 8:31am Orthopedic aftercare September 30, 2024 10:0 4am Chief Complaint Admit Date September 13, 2024 1:04pm LEFT WRIST September 18, 2024 8:31am PREOP September 19, 2024 1:44pm ORIF, Left Wrist September 23, 2024 11:10 am ORIF, Left Wrist September 23, 2024 1:08p m LEFT WRIST September 30, 2024 10:04 am LEFT WRIST October 09, 2024 10:04 am Chief Complaint Admit Date September 13, 2024 1:04pm LEFT WRIST September 18, 2024 8:31am PREOP September 19, 2024 1:44pm ORIF, Left Wrist September 23, 2024 11:10 am ORIF, Left Wrist September 23, 2024 1:08p m LEFT WRIST September 30, 2024 10:04 am LEFT WRIST October 09, 2024 10:04 am DISTAL RADIUS FRACTURE. RX HERE October 9:30am Reason for Visit Admit Date Distal radius fracture, left September 18 8:31am Orthopedic aftercare September 30, 2024 10:0 4am Orthopedic aftercare October 09, 2024 10:0 4am Medications Administered Section Inactive Administered Medications - up to 3 most recent administrations Medication Order MAR Action Action Date Dose Rate Site bupivacaine (PF) 0.5 % (5 mg/mL) 4 mL injection 4 mL, Injection - FOR ORTHO USE ONLY, ONE TIME INJECTION, 1 dose, Starting on Maricarmen 01/06/22 at 1359, Until Maricarmen 01/06/22 at 1359 Given 01/06/2022 1:59 PM EDT 4 mL Thigh, Right triamcinolone acetonide 40 mg injection (KeNALog 40) 40 mg, Injection - FOR ORTHO USE ONLY, ONE TIME INJECTION, 1 dose, Starting on Maricarmen 01/06/22 at 1359, Until Maricarmen 01/06/22 at 1359 Given 01/06/2022 1:59 PM EDT 40 mg Thigh, Right Inactive Administered Medications - up to 3 most recent administrations Medication Order MAR Action Action Date Dose Rate Site lidocaine (PF) 10 mg/mL (1 %) 3 mL injection (XYLOCAINE) 3 mL, Injection - FOR ORTHO USE ONLY, ONE TIME INJECTION, 1 dose, Starting on Mon04/15/22 at 1124, Until Mon04/15/22 at 1124 Given 04/15/2022 11:24 AM EST 3 mL Knee, Right sodium hyaluronate 2.5 mL injection (SUPARTZ FX) 2.5 mL, Injection - FOR ORTHO USE ONLY, ONE TIME INJECTION, 1 dose, Starting on Mon04/15/22 at 1124, Until Mon04/15/22 at 1124 Given 04/15/2022 11:24 AM EST 2.5 mL Knee, Right Inactive Administered Medications - up to 3 most recent administrations Medication Order MAR Action Action Date Dose Rate Site sodium hyaluronate 2.5 mL injection (SUPARTZ FX) 2.5 mL, Injection - FOR ORTHO USE ONLY, ONE TIME INJECTION, 1 dose, Starting on Mon04/26/22 at 1452, Until Mon04/26/22 at 1452 Given 04/26/2022 2:52 PM EST 2.5 mL Knee, Right Inactive Administered Medications - up to 3 most recent administrations Medication Order MAR Action Action Date Dose Rate Site sodium hyaluronate 2.5 mL injection (SUPARTZ FX) 2.5 mL, Injection - FOR ORTHO USE ONLY, ONE TIME INJECTION, 1 dose, Starting on Mon12/09/22 at 0846, Until Mon12/09/22 at 0846 Given 12/09/2022 8:46 AM EDT 2.5 mL Knee, Right Inactive Administered Medications - up to 3 most recent administrations Medication Order MAR Action Action Date Dose Rate Site sodium hyaluronate 2.5 mL injection (SUPARTZ FX) 2.5 mL, Injection - FOR ORTHO USE ONLY, ONE TIME INJECTION, 1 dose, Starting on Mon12/16/22 at 1158, Until Mon12/16/22 at 1158 Given 12/16/2022 11:58 AM EDT 2.5 mL Knee, Right Inactive Administered Medications - up to 3 most recent administrations Medication Order MAR Action Action Date Dose Rate Site sodium hyaluronate 2.5 mL injection (SUPARTZ FX) 2.5 mL, Injection - FOR ORTHO USE ONLY, ONE TIME INJECTION, 1 dose, Starting on Mon12/23/22 at 1432, Until Mon12/23/22 at 1432 Given 12/23/2022 2:32 PM EDT 2.5 mL Knee, Right Additional Source Comments INFORMATION SOURCE (unrecogn ized section and content) DATE CREATED AUTHOR 03/03/2020 [facility] ([place]) DATE CREATED AUTHOR AUTHOR'S ORGANIZ ATION 08/09/2020 [facility] DATE CREATED AUTHOR AUTHOR'S ORGANIZ ATION 07/28/2021 [facility] DATE CREATED AUTHOR AUTHOR'S ORGANIZ ATION 12/24/[address] [facility] DATE CREATED AUTHOR AUTHOR'S ORGANIZ ATION 10/23/2024 [facility] Source Comments (unrecognize d section and content) In the event this informatio n is protected by the Federal Confidentiality of Alcohol and Drug Abuse Patient Records regulations: The Federal rules restrict any use of the information to criminally investigate or prosecute any alcohol or drug abuse patient.[facility] Hospital[facility] the event this information is protected by the Federal Confidentiality of Alcohol and Drug Abuse Patient Records regulations: The Federal rules restrict any use of the information to criminally investigate or prosecute any alcohol or drug abuse patient.[facility] the event this information is protected by the Federal Confidentiality of Alcohol and Drug Abuse Patient Records regulations: The Federal rules restrict any use of the information to criminally investigate or prosecute any alcohol or drug abuse patient.[facility] the event this information is protected by the Federal Confidentiality of Alcohol and Drug Abuse Patient Records regulations: The Federal rules restrict any use of the information to criminally investigate or prosecute any alcohol or drug abuse patient.[facility] the event this information is protected by the Federal Confidentiality of Alcohol and Drug Abuse Patient Records regulations: The Federal rules restrict any use of the information to criminally investigate or prosecute any alcohol or drug abuse patient.[facility] the event this information is protected by the Federal Confidentiality of Alcohol and Drug Abuse Patient Records regulations: The Federal rules restrict any use of the information to criminally investigate or prosecute any alcohol or drug abuse patient.[facility] the event this information is protected by the Federal Confidentiality of Alcohol and Drug Abuse Patient Records regulations: The Federal rules restrict any use of the information to criminally investigate or prosecute any alcohol or drug abuse patient.[facility] the event this information is protected by the Federal Confidentiality of Alcohol and Drug Abuse Patient Records regulations: The Federal rules restrict any use of the information to criminally investigate or prosecute any alcohol or drug abuse patient.[facility] the event this information is protected by the Federal Confidentiality of Alcohol and Drug Abuse Patient Records regulations: The Federal rules restrict any use of the information to criminally investigate or prosecute any alcohol or drug abuse patient.[facility] the event this information is protected by the Federal Confidentiality of Alcohol and Drug Abuse Patient Records regulations: The Federal rules restrict any use of the information to criminally investigate or prosecute any alcohol or drug abuse patient.[facility] the event this information is protected by the Federal Confidentiality of Alcohol and Drug Abuse Patient Records regulations: The Federal rules restrict any use of the information to criminally investigate or prosecute any alcohol or drug abuse patient.[facility] HospitalIn the event this information is protected by the Federal Confidentiality of Alcohol and Drug Abuse Patient Records regulations: The Federal rules restrict any use of the information to criminally investigate or prosecute any alcohol or drug abuse patient.[facility] Reason for Visit (unrecogniz ed section and content) Reason Comments Established Patient Injections Specialty Diagnoses / Procedures Referred By Contac t Referred To Contact ORTHOPAEDIC SURGERY Diagnoses Osteoarthritis of right knee Procedures EUFLEXXA INJ PER DOSE INJECTION KNEE HYALGAN/SUPARTZ INJ PER DOSE Destiny Randall [facility] [address] [place] [place] [address] Referral ID Status Reason Start Date Expiration Date V isits Requested Visits Authorized [id number] Authorized 11/17/2022 02/24/2023 99 99 Reason Comments Established Patient Injections Knee Pain Reason Comments Follow Up Knee Pain Reason Comments Established Patient Knee Pain Supartz Fx injection #2 Specialty Diagnoses / Procedures Referred By Contac t Referred To Contact ORTHOPAEDIC SURGERY Diagnoses Unilateral primary osteoarthritis, right knee OSTEOARTHRITIS RIGHT KNEE Procedures EUFLEXXA OR PAYOR PREFERRED Destiny Randall DO [facility] [address] [place] [address] Referral ID Status Reason Start Date Expiration Date V isits Requested Visits Authorized [id number] Authorized 01/07/2022 07/28/2022 3 3 Reason Comments Knee Pain Post Op Specialty Diagnoses / Procedures Referred By Contac t Referred To Contact Orthopedics / ORTHOPAEDIC SURGERY Diagnoses Other tear of medial meniscus of right knee as current injury, initial encounter post op Rt med men root repair Procedures OFFICE/OUTPATIENT NEW MODERATE MDM 45-59 MINUTES POST OP Self Destiny Randall DO [address] [place] [address] Referral ID Status Reason Start Date Expiration Date V isits Requested Visits Authorized [id number] Authorized 08/04/2021 08/04/2022 4 4 Reason Comments Post Op Knee Pain Swelling Reason Comments Post Op Knee Pain Swelling Specialty Diagnoses / Procedures Referred By Contac t Referred To Contact Orthopedics / ORTHOPAEDIC SURGERY Diagnoses Other tear of medial meniscus of right knee as current injury, initial encounter post op Rt med men root repair Procedures OFFICE/OUTPATIENT NEW MODERATE MDM 45-59 MINUTES POST OP Self Destiny Randall [facility] [place] [address] Specialty Diagnoses / Procedures Referred By Contac t Referred To Contact Orthopedics / ORTHOPAEDIC SURGERY Diagnoses Follow-up examination post op right knee meniscus - dos 07/27/21 Procedures OFFICE/OUTPATIENT ESTABLISHED MOD MDM 30-39 MIN POST OP Destiny Randall DO [facility] [place] [address] Destiny Randall DO [facility] [place] [address] Referral ID Status Reason Start Date Expiration Date Visits Re quested Visits Authorized [id number] Closed 01/05/2022 05/14/2022 1 1 Reason Comments Appointment Conflict Reason Comments Established Patient Knee Pain Injections Reason Comments Appointment Specialty Diagnoses / Procedures Referred By Contac t Referred To Contact Radiology / RADIO GENERAL [facility] Diagnoses xray Procedures XR GENERAL 7 Isabell Vázquez, [employer]ERP DEVELOPER [address] [place] [address] Radio General On License Of [facility] [address] [place] [address] Referral ID Status Reason Start Date Expiration Date Visits Re quested Visits Authorized [id number] Closed 10/26/2020 12/25/2020 99 99 Care Teams (unrecognized sec tion and content) Physician Obstetrician Relationship Specialty Start Date End Date Rose Mary Ocasio PCP - General Family Practice 06/09/14 Physician Obstetrician Relationship Specialty Start Date End Date Rose Mary Ocasio PCP - General Family Practice 06/09/14 Physician Obstetrician Relationship Specialty Start Date End Date Rose Mary Ocasio PCP - General Family Practice 06/09/14 Physician Obstetrician Relationship Specialty Start Date End Date Rose Mary Ocasio PCP - General Family Practice 06/09/14 Physician Obstetrician Relationship Specialty Start Date End Date Rose Mary Ocasio PCP - General Family Medicine 06/09/14 Physician Obstetrician Relationship Specialty Start Date End Date Rose Mary Ocasio PCP - General Family Medicine 06/09/14 Physician Obstetrician Relationship Specialty Start Date End Date Rose Mary Ocasio PCP - General Family Medicine 06/09/14 Physician Obstetrician Relationship Specialty Start Date End Date Rose Mary Ocasio PCP - General Family Medicine 06/09/14 Physician Obstetrician Relationship Specialty Start Date End Date Rose Mary Ocasio PCP - General Family Medicine 06/09/14 Physician Obstetrician Relationship Specialty Start Date End Date Rose Mary Ocasio PCP - General Family Medicine 06/09/14 Physician Obstetrician Relationship Specialty Start Date End Date Rose Mary Ocasio PCP - General Family Medicine 06/09/14 Team Status: Active Member Role Status Dates Dr. Rose Mary Ocasio MD Family Provider Active Dr. Rose Mary Ocasio MD Primary Care Provider Active Team Status: Active Member Role Status Dates Dr. Rose Mary Ocasio MD Primary Care Provider Active Dr. Yahir Tesfaye MD Attending Provider Active Team Status: Inactive Member Role Status Dates Dr. Rose Mary Ocasio MD Primary Care Provider, Attendin g Provider Active Team Status: Inactive Member Role Status Dates Dr. Rose Mary Ocasio MD Primary Care Prov ider, Attending Provider, Referring Provider Active Team Status: Active Member Role Status Dates Dr. Rose Mary Ocasio MD Primary Care Provider Active Dr. Yahir Tesfaye MD Attending Provider, Referring Pro vider Active Physician Obstetrician Relationship Specialty Start Date End Date Rose Mary Ocasio PCP - [facility] Family Medicine 06/09/14 Team Status: Active Member Role Status Dates Dr. Augustine Pace MD Primary Care Provider Active Team Status: Inactive Member Role Status Dates Dr. Rose Mary Ocasio MD Primary Care Provider Active Start: September 13, 2024 End: September 13, 2024 Dr. Ronn Mcgregor MD Attending Provider Active S tart: September 13, 2024 End: September 13, 2024 Dr. Ronn Mcgregor MD Emergency Provider Active S tart: September 13, 2024 End: September 13, 2024 Team Status: Inactive Member Role Status Dates Dr. Rose Mary Ocasio MD Primary Care Provider Active Start: September 18, 2024 End: September 18, 2024 Dr. Rose Mary Ocasio MD Referring Provider Active Start: September 18, 2024 End: September 18, 2024 Dr. Brian Garcia DO Attending Provider Active Start: September 18, 2024 End: September 18, 2024 Team Status: Inactive Member Role Status Dates Dr. Brian Garcia DO Attending Provider Active Start: September 23, 2024 End: September 23, 2024 Dr. Brian Garcia DO Referring Provider Active Start: September 23, 2024 End: September 23, 2024 Dr. Augustine Pace MD Primary Care Provider Active Start: September 23, 2024 End: September 23, 2024 Team Status: Active Member Role Status Dates Dr. Brian Garcia DO Attending Provider Active Start: September 23, 2024 Dr. Brian Garcia DO Referring Provider Active Start: September 23, 2024 Dr. Brian Garcia DO Other Provider Active St art: September 23, 2024 Dr. Augustine Pace MD Primary Care Provider Active Start: September 23, 2024 Team Status: Active Member Role Status Dates Dr. Augustine Pace MD Primary Care Provider Active Start: September 19, 2024 End: September 19, 2024 Dr. Jad Teixeira MD Attending Provider Active Start: September 19, 2024 End: September 19, 2024 Dr. Brian Garcia DO Referring Provider Active Start: September 19, 2024 End: September 19, 2024 Team Status: Inactive Member Role Status Dates Dr. Augustine Pace MD Primary Care Provider Active Start: September 30, 2024 End: September 30, 2024 Dr. Augustine Pace MD Referring Provider Active St art: September 30, 2024 End: September 30, 2024 Dr. Brian Garcia DO Attending Provider Active Start: September 30, 2024 End: September 30, 2024 Team Status: Inactive Member Role Status Dates Dr. Augustine Pace MD Primary Care Provider Active Start: October 09, 2024 End: October 09, 2024 Dr. Augustine Pace MD Referring Provider Active St art: October 09, 2024 End: October 09, 2024 Dr. Brian Garica DO Attending Provider Active Start: October 09, 2024 End: October 09, 2024 Team Status: Active Member Role Status Dates Dr. Augustine Pace MD Primary Care Provider Active Start: October 14, 2024 Dr. Brian Garcia DO Attending Provider Active Start: October 14, 2024 Team Status: Inactive Member Role Status Dates Dr. Augustine Pace MD Primary Care Provider Active Start: October 14, 2024 End: October 14, 2024 Dr. Augustine Pace MD Attending Provider Active art: October 14, 2024 End: October 14, 2024 Dr. Augustine Pace MD Referring Provider Active art: October 14, 2024 End: October 14, 2024 Goals (unrecognized section and content) Goals may be documented in a n alternate sectionGoals may be documented in an alternate sectionGoals may be documented in an alternate sectionGoals may be documented in an alternate sectionGoals may be documented in an alternate sectionGoals may be documented in an alternate sectionGoals may be documented in an alternate sectionGoals may be documented in an alternate section FOR RECORDS PERTAINING TO PATIENTS WHO ARE OR HAVE BEEN ENROLLED IN A CHEMICAL DEPENDENCY/SUBSTANCEABUSE PROGRAM, SOME INFORMATION MAY BE OMITTED. This clinical summary was aggregated from multiple sources. Caution should be exercised in using it in the provision of clinical care. This summary normalizes information from multiple sources, and as a consequence, information in this document may materially change the coding, format and clinical context of patient data. In addition, data may be omitted in some cases. CLINICAL DECISIONS SHOULD BE BASED ON THE PRIMARY CLINICAL RECORDS. [facility]. provides no warranty or guarantee of the accuracy or completeness of information in this document.
--- NOTE | 2024-10-31 09:27 | BD_ITS ---
PROCEDURE: DEXA BONE DENSITY STUDY 10/31/2024 REASON FOR EXAM: F, age 63 y/o . Postmenopausal. TECHNIQUE: DEXA BONE DENSITY STUDY COMPARISON: February 21, 2023 FINDINGS: BMD and T-SCORES Lumbar spine: 0.967 g/cm2, T-score -0.1 Levels: L1 through L4 Change from prior: Loss of 6.4%. Left femoral neck: 0.797 g/cm2, T-score -0.5 Femoral neck comparison data not recommended for monitoring change. Left total hip: 0.979 g/cm2, T-score 0.3 Change from prior: Loss of 9.8%. Right femoral neck: 0.822 g/cm2, T-score -0.2 Femoral neck comparison data not recommended for monitoring change. Right total hip: 0.907 g/cm2, T-score -0.3 Change from prior: Loss of 4.3%. The World Health Organization has defined the following categories based on bone density: Normal bone density: T-score equal to or greater than -1.0 Osteopenia: T-score between -1.0 and -2.5 Osteoporosis: T-score equal to or less than -2.5 The patient does not meet the pharmacological treatment recommendations for prevention of osteoporosis. BD/Dexa Bone Density Study IMPRESSION: NORMAL T-SCORES. Recommend follow-up as clinically warranted. Reading Location: [place] [address]
== END | disposition home or self-care (01) ==
LOC: OPBD 09:26
PROVIDERS: PCP Family Medicine; Referring Provider Family Medicine; Visit Provider Family Medicine
DX: Z78.0 Asymptomatic menopausal state (principal)
CPT/HCPCS: 77080

== ENCOUNTER 2024-11-22 09:30 | Outpatient (RCR) | payer MEDICARE, SELFPAY ==
--- NOTE | 2024-10-09 13:48 | HP.OTEVAL_ITS ---
Patient's Visit Information Visit Information Visit Information: ROSANNE MCCLAIN is a 63 year old F, referred to Occupational Therapy by Dr. 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 Date of Evaluation: 10/09/24 Occupational Therapist: ANGÉLICA Linares/Ela, CHT Subjective Subjective: This 63 year old female was seen for OT eval with dx left intraarticular fx of left lower end radius. Pt states she fell waking on a slippery sidewalk. September 13 went to ER and followed up with Dr. Esqueda on 09/18/24 and had sx for ORIF of distal radius on 09/23/14. pt is right handed pt is retired pt states she likes to garden and feels she can not do this at this time has dog she walk 2 miles every day pt lives alone and struggles with home mtg and daily tasks. pt would like to return to he PLOF. Pain left wrist: Current Pain Intensity: 0 Pain Intensity Range: 3 ROM Forearm: right/left WNL Wrist: right 70/70 left 55/40 ROM Comments: right RD [address] 20 UD 30 pt demo full composite fist and thumb opposition with no noted scar adhesions at this time, Strength Strength Comments: will test at later date Sensation Sensation Comments: thumb tip tingle/numbness Quick DASH-Disab of Arm,Shoulder& Hand Quick DASH Score: 40.0000 Goals Goal:ROM equal to unaffected hand: Yes Goal:[employer]/Pinch strength at least 75% of unaffected hand: Yes Goal:No pain with affected hand use: Yes Goal:Full use of affected hand in daily activities including work: Yes Goal:Decrease scar hypersensitivity: Yes Other Goal: pt will demo understanding of elevation, ice to decrease edema by end of 1st session. Rehabilitation General Assessment: pt arrives 2 weeks and 2 days s/p from a ORIF of left distal radius. pt limited with use of left UE with all ADLs and IADls at this time. pt demo need for skilled OT services 1-2x week for 6-8 weeks to return pt to her PLOD. . Today therapist reviewed ROM, edema and tendon glide ex. Pt demo good ROM for being 2 weeks s/p. therapist will work with pt 1x week to endure gains with ROM and once pt is back from vacation and cleared to strengthen will initiate therapy 2x week. Pt demo understanding and agree to POC. Rehabilitation Potential: Good Anticipated Interventions Anticipated Interventions: A/AAROM/PROM, Strengthening, Edema Control, Triggerpoint Release, Modalities, Joint Protection/Energy Conservation, Ergonomic Education, Education re assistive Equipment, Education re Diagnosis and Home Program Visit Plan Frequency: 1-2x /Week Duration: 6 Weeks TEXT: Thank you for the opportunity to evaluate your patient. For Medicare and Medicare HMO plans, please review the plan of care and approve it. It will need to be FAXED BACK to us at [phone] for Medicare purposes. Please let me know if there are questions or concerns regarding this plan of care. Physician Signature:__ Date:
--- NOTE | 2024-11-22 11:43 | HP.OTEVAL_ITS ---
Patient's Visit Information Visit Information Visit Information: ROSANNE MCCLAIN is a 63 year old F, referred to Occupational Therapy by Dr. 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 Date of Evaluation: 10/09/24 Occupational Therapist: ANGÉLICA Linares/Ela, CHT Subjective Subjective: This 63 year old female was seen for OT eval with dx left intraarticular fx of left lower end radius. Pt states she fell waking on a slippery sidewalk. September 13 went to ER and followed up with Dr. Esqueda on 09/18/24 and had sx for ORIF of distal radius on 09/23/14. pt is right handed pt is retired pt states she likes to garden and feels she can not do this at this time has dog she walk 2 miles every day pt lives alone and struggles with home mtg and daily tasks. pt would like to return to he PLOF. Pain left wrist: Current Pain Intensity: 0 Pain Intensity Range: 3 ROM Forearm: right/left WNL Wrist: right 70/70 left 55/40 ROM Comments: right RD [address] 20 UD 30 pt demo full composite fist and thumb opposition with no noted scar adhesions at this time, Strength Strength Comments: will test at later date Sensation Sensation Comments: thumb tip tingle/numbness Quick DASH-Disab of Arm,Shoulder& Hand Quick DASH Score: 9.0900 Goals Goal:ROM equal to unaffected hand: Yes Goal:Life Skills Coordinator Volunteer/Pinch strength at least 75% of unaffected hand: Yes Goal:No pain with affected hand use: Yes Goal:Full use of affected hand in daily activities including work: Yes Goal:Decrease scar hypersensitivity: Yes Other Goal: pt will demo understanding of elevation, ice to decrease edema by end of 1st session. (goal met) Rehabilitation General Assessment: pt arrives 2 weeks and 2 days s/p from a ORIF of left distal radius. pt limited with use of left UE with all ADLs and IADls at this time. pt demo need for skilled OT services 1-2x week for 6-8 weeks to return pt to her PLOD. . Today therapist reviewed ROM, edema and tendon glide ex. Pt demo good ROM for being 2 weeks s/p. therapist will work with pt 1x week to endure gains with ROM and once pt is back from vacation and cleared to strengthen will initiate therapy 2x week. Pt demo understanding and agree to POC. Rehabilitation Potential: Good Anticipated Interventions Anticipated Interventions: A/AAROM/PROM, Strengthening, Edema Control, Triggerpoint Release, Modalities, Joint Protection/Energy Conservation, Ergono miguel angel Education, Education re assistive Equipment, Education re Diagnosis and Home Program Visit Plan Frequency: 1-2x /Week Duration: 6 Weeks TEXT: Thank you for the opportunity to evaluate your patient. For Medicare and Medicare HMO plans, please review the plan of care and approve it. It will need to be FAXED BACK to us at [phone] for Medicare purposes. Please let me know if there are questions or concerns regarding this plan of care. Physician Si gnature: Date:
--- NOTE | 2024-11-22 11:44 | HP.OTDCSUM ---
Discharge Summary D/C Summary: It has been my pleasure to treat ROSANNE MCCLAIN under orders from Dr. Brian Garcia DO, for the diagnosis of left intra artic lower end radius fx for a total of 7 visit(s). Please see the following information for a summary of their discharge status. Overall Improvement % Improvement: 85 Objective Objective/Function: Pt doing well- found wts at home- gave HEP handout this day. Not getting as much wrist flexion- using hand at home and is not limiting her from much. right tank erector strength 50# left 40# right lateral pinch 10# left 8# right tripod pinch 6# left 6# did feel discomfort pt has met OT goals and can be d/c with HEP Goals Patient Goals: Regain Mobility, Improve Fine Motor Skills, Use Hand/Wrist/Arm Normally Again and Be More Independent in ADLS Goal:ROM equal to unaffected hand: Yes Goal Progress: Goal Met Goal:Mixer Lever Operator/Pinch strength at least 75% of unaffected hand: Yes Goal Progress: Progressing Goal:No pain with affected hand use: Yes Goal Progress: Goal Met Goal:Full use of affected hand in daily activities including work: Yes Goal Progress: Goal Met Goal:Decrease scar hypersensitivity: Yes Other Goal: pt will demo understanding of elevation, ice to decrease edema by end of 1st session. (goal met) Plan Plan: cont with strengthening D/C Information Discharge Comments: pt states she is doing better and able to do more- pt will cont. with HEP to improve her strength. d/c sentence: If there are questions or concerns regarding this patient's occupational therapy, please fell free to call me at [phone]. Thank you for the referral of this patient. Sincerely, Imelda Amador, OTR/L, CHT
--- NOTE | 2024-11-22 11:44 | HP.OTDCSUM ---
Discharge Summary D/C Summary: It has been my pleasure to treat ROSANNE MCCLAIN under orders from Dr. Brian Garcia DO, for the diagnosis of left intra artic lower end radius fx for a total of 7 visit(s). Please see the following information for a summary of their discharge status. Overall Improvement % Improvement: 85 Objective Objective/Function: Pt doing well- found wts at home- gave HEP handout this day. Not getting as much wrist flexion- using hand at home and is not limiting her from much. right electrical & instrumentation supervisor strength 50# left 40# right lateral pinch 10# left 8# right tripod pinch 6# left 6# did feel discomfort pt has met OT goals and can be d/c with HEP Goals Patient Goals: Regain Mobility, Improve Fine Motor Skills, Use Hand/Wrist/Arm Normally Again and Be More Independent in ADLS Goal:ROM equal to unaffected hand: Yes Goal Progress: Goal Met Goal:Search Engine Optimization Specialist/Pinch strength at least 75% of unaffected hand: Yes Goal Progress: Progressing Goal:No pain with affected hand use: Yes Goal Progress: Goal Met Goal:Full use of affected hand in daily activities including work: Yes Goal Progress: Goal Met Goal:Decrease scar hypersensitivity: Yes Other Goal: pt will demo understanding of elevation, ice to decrease edema by end of 1st session. (goal met) Plan Plan: cont with strengthening D/C Information Discharge Comments: pt states she is doing better and able to do more- pt will cont. with HEP to improve her strength. d/c sentence: If there are questions or concerns regarding this patient's occupational therapy, please fell free to call me at [phone]. Thank you for the referral of this patient. Sincerely, Imelda Amador, OTR/L, CHT
== END 2024-11-22 12:42 | disposition home or self-care (01) ==
LOC: OT 09:30
PROVIDERS: PCP Family Medicine; Visit Provider Orthopaedic Surgery
DX: S52.572D Other intraarticular fracture of lower end of left radius, subsequent encounter for closed fracture with routine healing (principal)
CPT/HCPCS: 97110; 97140; 97166

== ENCOUNTER → 2024-12-03 | Outpatient (CLI) | payer MEDICARE, SELFPAY ==
[2024-12-03 10:49] LABS: Free T3 1.9 pg/mL (2.18-3.98)
== END | disposition home or self-care (01) ==
LOC: MFPLAB 08:59
PROVIDERS: PCP Family Medicine; Referring Provider Family Medicine; Visit Provider Family Medicine
DX: E03.9 Hypothyroidism, unspecified (principal)
CPT/HCPCS: 36415; 84439; 84443; 84481

== ENCOUNTER → 2025-02-24 | Outpatient (CLI) | payer MEDICARE, SELFPAY ==
--- NOTE | 2025-02-24 10:08 | BI_ITS ---
EXAM: SCRN MAMM (CAD)W/ADITI BILAT DATE: 02/24/2025 CLINICAL HISTORY: F, Age 64 y/o , SCREENING FOR BREAST CANCER TECHNIQUE: Procedure Code: [id number] Modality: MG Procedure: SCRN MAMM (CAD)W/ADITI BILAT COMPARISON: Prior exam(s) dated 02/23/2024 and 02/21/2023. FINDINGS: TISSUE DENSITY: There are scattered areas of fibroglandular density. Bilateral Breast Mammographic Findings: No significant masses, calcifications or other abnormalities are identified. Benign dermal calcifications, round calcifications and vascular calcifications are seen in both breast. BI/SCRN MAMM (CAD)W/ADITI BILAT IMPRESSION: Benign screening mammogram. OVERALL FINAL ASSESSMENT BI-RADS benign screening mammogram RECOMMENDATION: Routine annual follow-up in 1 Year Additional Recommendation none A letter with findings and recommendations will be mailed to the patient. Reading Location: [id number]
== END | disposition home or self-care (01) ==
PROVIDERS: PCP Family Medicine; Referring Provider Family Medicine; Visit Provider Family Medicine
DX: Z12.31 Encounter for screening mammogram for malignant neoplasm of breast (principal)
CPT/HCPCS: 77063; 77067

== ENCOUNTER → 2025-02-26 | Outpatient (CLI) | payer MEDICARE, SELFPAY ==
--- NOTE | 2025-02-26 13:11 | NEURO ---
NCS and/or EMG Patient Report Ordering Doctor: Brian Garcia DATE OF SERVICE: 02/26/25 Sherron presents with complaints of numbness and weakness in the right hand. Electrodiagnostic findings: Right median motor nerve demonstrates prolonged latency with normal amplitude and reduced conduction velocity. Normal right ulnar motor response. Normal right median and ulnar F–waves. Absent right median sensory response at the wrist. Needle EMG testing was performed the right upper limb. All muscles tested showed no evidence of denervation with normal motor unit action potentials. Electrodiagnostic impression: This is an abnormal study in the right upper limb 1. Electrodiagnostic findings suggestive of right sided median mononeuropathy. This is consistent with a moderate right carpal tunnel syndrome. Multi Select Codes Neurology Neurology Interp Codes: 59215-23 Musc test done w/n test comp (interp) and 27466-24 Nrv cndj test 7-8 studies (interp)
== END | disposition home or self-care (01) ==
LOC: PSN 12:07
PROVIDERS: PCP Family Medicine; Referring Provider Orthopaedic Surgery; Visit Provider Orthopaedic Surgery
DX: G56.01 Carpal tunnel syndrome, right upper limb (principal)
CPT/HCPCS: 95886; 95910

== ENCOUNTER 2025-03-18 05:53 | Day surgery (SDC) | payer MEDICARE, SELFPAY ==
--- NOTE | 2025-03-10 17:20 | PAT.ANESEVAL ---
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 When Was Last Pacemaker Check QUESTION #4 FULL TEXT: You/Your Family Experience fever (hyperthermia) with Anesthesia Last Oral Intake Last Oral intake: Last Oral Intake NPO since Meds taken in AM with sips of water? Meds patient instructed to take am of surgery PONV PONV - boat loader helper: PONV - boat loader helper Female Yes 03/10/25 09:17 HX of Motion Sickness Yes 03/10/25 09:17 HX of N/V After Surgery Yes 03/10/25 09:17 Non-Smoker Yes 03/10/25 09:17 Duration of Surgery greater No 03/10/25 09:17 than 60 minutes Number of Risk Factors 4 03/10/25 09:17 PONV Score Severe Risk 03/10/25 09:17 Height & Weight Height & Weight: Anesthesia: Height & Weight Height 5 ft 2 in 09/23/24 11:42 Respiratory Assessment Respiratory Assessment - boat loader helper: Respiratory Tract Infection Hx - boat loader helper Hx Respiratory Tract Infection No 03/10/25 09:17 STOP Sleep Apnea STOP Sleep Apnea - boat loader helper: STOP Sleep Apnea - boat loader helper Hx Hypertension Yes: PER PT, CONTROLLED ON 03/10/25 09:17 MEDS Hx Sleep Apnea No 03/10/25 09:17 CPAP No 09/23/24 14:45 BIPAP No 09/13/24 14:27 Do you snore loudly (louder No 03/10/25 09:17 than talking or can be heard Do you often feel tired/ No 03/10/25 09:17 fatigued/ sleepy during daytime? Has anyone observed you stop No 03/10/25 09:17 breathing during sleep? STOP Results Negative 03/10/25 09:17 QUESTION #5 FULL TEXT : Do you snore loudly (louder than talking or can be heard through closed doors)? Tobacco Use History Tobacco Use History - boat loader helper: Tobacco Use History - boat loader helper Tobacco Use Smoking Status Never smoker 03/10/25 09:17 Hx Tobacco Use No 03/10/25 09:17 Years Smoking Packs Smoked per Day Smoking Cessation Date was within the last 15 years Hx Smoking Cessation Date Hx Smoking Cessation Counseling Hematologic Medial History Hematologic Hx - boat loader helper: Hematologic Medical Hx - structural designer Hx of Blood Transfusion No 03/10/25 09:17 Hx of Transfusion in last 3 No 03/10/25 09:17 Months Date of Last Transfusion (if within last 3 months) Ever experience any problems No 03/10/25 09:17 with transfusion(s)? Specify any problems Hx of Preganancy in last 3 No 03/10/25 09:17 Months Nurse Filling Out Transfusion MGRIFFITH 03/10/25 09:17 & Questions: Date: 03/10/25 03/10/25 09:17 Time: 09:20 03/10/25 09:17 Patient unable to answer at this time (ie. confused, unrespo /Reproduction History /Reproductive History - boat loader helper: /Reproductive Hx- boat loader helper Hx Now Gestational Age (in weeks): EDC: Hx Hx Para Hx Section SAB No 09/19/24 12:25 PFSH Medical History (Updated 03/10/25 @ 09:27 by Liliam Martines) Alcohol use Easy bruising PONV (postoperative nausea and vomiting) Leg cramps Hypertension Wears contact lenses Wears glasses Thyroid disease History of edema Non-smoker History of stress test Heart murmur History of echocardiogram Cardiology follow-up encounter Essential (primary) hypertension Hyperlipidemia Postmenopausal bleeding Home Medications ?Medication ?Instructions ?Recorded ?Last Taken ?Type levothyroxine 125 mcg tablet 100 mcg PO DAILY 03/18/15 09/23/24 History cholecalciferol (vitamin D3) 50 2,000 unit PO DAILY 04/13/18 09/13/24 History mcg (2,000 unit) capsule (Vitamin D3) melatonin 3 mg capsule 3 mg PO HS PRN sleep 03/27/23 Unknown History omega-3 fatty acids 1,000 mg 1,000 mg PO DAILY 11/13/23 05/11/25 History capsule metoprolol succinate 25 mg 25 mg PO DAILY #90 tabs 05/27/24 09/23/24 07:00 Rx tablet,extended release 24 hr amlodipine 10 mg tablet 10 mg PO QHS 09/13/24 09/22/24 History hydrochlorothiazide 12.5 mg tablet 12.5 mg PO DAILY 09/13/24 09/13/24 History turmeric 400 mg PO DAILY 09/13/24 09/18/24 History Allergy/AdvReac Type Severity Reaction Status Date / Time ramipril (From Altace) Allergy Swelling Verified 03/10/25 09:13 ARB-Angiotensin Receptor AdvReac Severe Angioedema Verified 03/10/25 09:13 Antagonist Family History Mother Hypertension CVA (cerebral vascular accident) Diabetes Father Hypertension Cancer Grandmother CAD (coronary artery disease) Surgical History (Updated 03/10/25 @ 09:17 by Liliam Martines) History of surgery on wrist History of esophagogastroduodenoscopy (EGD) History of colonoscopy History of repair of right rotator cuff History of medial meniscus repair of right knee History of ankle surgery History of foot surgery S/P hysterectomy (~2017) Social History Smoking Status: Never smoker alcohol intake: current substance use type: does not use Audit: Pertinent Findings Pertinent Findings EKG Perinent findings: 09/19/2024. Sinus bradycardia at 53 bpm. Echo (EF%) pertinent findings: 04/03/2024. EF of 60%. PASP is 38 mmHg. Mild aortic stenosis. Consult pertinent findings: 04/08/2024. [facility] [employer]. 1. Aortic stenosis-this is by history. Latest echo shows mild aortic stenosis which appears stable. 2. Bivhzumilrve-[id number]. Patient has a history of bradycardia. Heart rate today is 50. Will decrease patient's metoprolol to 25 mg daily. Continue amlodipine and hydrochlorothiazide. Recommendation Anesthesia Recommendation Anesthesia recommendation: OPTIMIZED for anesthesia
[2025-03-18] VITALS (8 sets, daily range): BP systolic 109–142; BP diastolic 55–79; PULSE 46–52; RESP 16–20; TEMP 36.1–37; O2SAT 95–100; BMI 38.7
[2025-03-18] MEDS: Lactated Ringers 1,000 ML 15 ML IV (06:38)
--- NOTE | 2025-03-18 07:01 | PCM.PRE.AN2 ---
ASA Classification* ASA Classification ASA Classification: 2 Assessment & Plan Anesthesia* Anesthesia Assessment Anesthesia Assessment: Discussed sedation and/or anesthesia options, risks, benefits, and alternatives with patient/parents/legal guardian/POA. Questions invited. The patient/parents/legal guardian/POA seems to understand and agrees to proceed with anesthesia plan. Reviewed the physical assessment, medical history, allergy history and patient home medications list prior to surgery/procedure/anesthetic and documented any changes. Performed airway and anesthesia risk assessments. Anesthesia Type Anesthesia Type: MAC (Mild aortic stenosis. Avoid increased heart rate and decrease blood pressure. Phenylephrine is drug of choice.) History Source History Obtained from:: Patient and Chart Anesthesia Focused Assessment* Temperature: 98.6 F Pulse Rate: 50 Blood Pressure: 137/55 Respiratory Rate: 16 Pulse Ox: 100 Oxygen Delivery Method: Room Air Airway Assessment Mouth opens: >3 cm Mallampati Score: IV Teeth Condition: Intact Neck Range of motion (ROM): Limited ROM Comment: Short thyromental distance Labs Anesthesia Preop lab: CBC WBC, (4.4-11.0) 6.5 K/mm3 07/30/20, 16:30 RBC, (4.2-5.4) 4.84 M/mm3 07/30/20, 16:30 Hgb, (12.0-15.0) 12.8 g/dL 07/30/20, 16:30 Hct, (37-47) 40.9 % 07/30/20, 16:30 Plt Count, (150-450) 247 K/mm3 07/30/20, 16:30 CHEMISTRY Potassium, (3.3-5.1) 5.1 mmol/L 10/14/24, 14:20 Sodium, (133-145) 134 mmol/L 10/14/24, 14:20 BUN, (4-19) 28 mg/dL H 10/14/24, 14:20 Creatinine, (0.70-1.20) 0.67 mg/dL L 10/14/24, 14:20 Glucose, (70-99) 118 mg/dL H 10/14/24, 14:20 POC Glucose, (70-110) 93 mg/dL 04/19/18, 11:00 TSH, (0.300-4.200) 2.910 uIU/mL 12/03/24, 09:01 COAG PT, (11.7-14.9) 14.0 SECONDS 04/12/18, 16:02 Pre-Assessment Diagnosis/Proposed Procedure Planned Operative Procedure(s): (R) Right open Carpal Tunnel Release Anesthesia History Anesthesia History - sculpture conservator: Anesthesia History - sculpture conservator Hx Hospitalization No 03/10/25 09:17 Any Problems With Anesthesia No 03/10/25 09:17 Cholinesterase deficiency No 03/10/25 09:17 You/Your Family Experience No 03/10/25 09:17 fever (hyperthermia) with Relationship Recent Exposure to Contagious No 03/18/25 06:33 Disease Does patient have nerve No 03/10/25 09:17 stimulator Patient instructed to have device shut off --Does patient have Pacemaker No 03/18/25 06:36 or ICD? When Was Last Pacemaker Check QUESTION #4 FULL TEXT: You/Your Family Experience fever (hyperthermia) with Anesthesia Last Oral Intake Last Oral intake: Last Oral Intake NPO since 00:00 03/18/25 06:36 Meds taken in AM with sips of No 03/18/25 06:36 water? Meds patient instructed to take am of surgery PONV PONV - sculpture conservator: PONV - sculpture conservator Female Yes 03/10/25 09:17 HX of Motion Sickness Yes 03/10/25 09:17 HX of N/V After Surgery Yes 03/10/25 09:17 Non-Smoker Yes 03/10/25 09:17 Duration of Surgery greater No 03/10/25 09:17 than 60 minutes Number of Risk Factors 4 03/10/25 09:17 PONV Score Severe Risk 03/10/25 09:17 Height & Weight Height & Weight: Anesthesia: Height & Weight Height 5 ft 2 in 03/18/25 06:36 Weight: 96 kg 03/18/25 06:36 Body Mass Index (BMI) 38.7 03/18/25 06:36 Respiratory Assessment Respiratory Assessment - sculpture conservator: Respiratory Tract Infection Hx - sculpture conservator Hx Respiratory Tract Infection No 03/10/25 09:17 STOP Sleep Apnea STOP Sleep Apnea - sculpture conservator: STOP Sleep Apnea - sculpture conservator Hx Hypertension Yes: PER PT, CONTROLLED ON 03/10/25 09:17 MEDS Hx Sleep Apnea No 03/10/25 09:17 CPAP No 09/23/24 14:45 BIPAP No 09/13/24 14:27 Do you snore loudly (louder No 03/10/25 09:17 than talking or can be heard Do you often feel tired/ No 03/10/25 09:17 fatigued/ sleepy during daytime? Has anyone observed you stop No 03/10/25 09:17 breathing during sleep? STOP Results Negative 03/10/25 09:17 QUESTION #5 FULL TEXT : Do you snore loudly (louder than talking or can be heard through closed doors)? Tobacco Use History Tobacco Use History - sculpture conservator: Tobacco Use History - sculpture conservator Tobacco Use Smoking Status Never smoker 03/10/25 09:17 Hx Tobacco Use No 03/10/25 09:17 Years Smoking Packs Smoked per Day Smoking Cessation Date was within the last 15 years Hx Smoking Cessation Date Hx Smoking Cessation Counseling Hematologic Medial History Hematologic Hx - sculpture conservator: Hematologic Medical Hx - cosmetic account coordinator Hx of Blood Transfusion No 03/10/25 09:17 Hx of Transfusion in last 3 No 03/10/25 09:17 Months Date of Last Transfusion (if within last 3 months) Ever experience any problems No 03/10/25 09:17 with transfusion(s)? Specify any problems Hx of Preganancy in last 3 No 03/10/25 09:17 Months Nurse Filling Out Transfusion MGRIFFITH 03/10/25 09:17 & Questions: Date: 03/10/25 03/10/25 09:17 Time: 09:20 03/10/25 09:17 Patient unable to answer at this time (ie. confused, unrespo /Reproduction History /Reproductive History - sculpture conservator: /Reproductive Hx- sculpture conservator Hx Now Gestational Age (in weeks): EDC: Hx Hx Para Hx Section SAB No 09/19/24 12:25 Active Medications Active Medications: Current Medications Generic Name Dose Route Start Last Admin Trade Name Freq PRN Reason Stop Dose Admin Cefazolin Sodium 2 gm/ Sodium 110 mls @ 200 mls/hr 03/18/25 10:45 Chloride IV 03/18/25 11:17 INTRAOP ONE Lactated Ringer's 1,000 mls @ 15 mls/hr 03/18/25 06:15 03/18/25 06:38 IV 15 mls/hr .Q48H SACHA Administration PFSH Medical History Alcohol use Easy bruising PONV (postoperative nausea and vomiting) Leg cramps Hypertension Wears contact lenses Wears glasses Thyroid disease History of edema Non-smoker History of stress test Heart murmur History of echocardiogram Cardiology follow-up encounter Essential (primary) hypertension Hyperlipidemia Postmenopausal bleeding Home Medications ?Medication ?Instructions ?Recorded ?Last Taken ?Type levothyroxine 125 mcg tablet 100 mcg PO DAILY 03/18/15 03/17/25 History cholecalciferol (vitamin D3) 50 2,000 unit PO DAILY 04/13/18 03/17/25 History mcg (2,000 unit) capsule (Vitamin D3) melatonin 3 mg capsule 3 mg PO HS PRN sleep 03/27/23 03/17/25 History omega-3 fatty acids 1,000 mg 1,000 mg PO DAILY 03/27/23 03/17/25 History capsule metoprolol succinate 25 mg 25 mg PO DAILY #90 tabs 05/27/24 03/17/25 Rx tablet,extended release 24 hr amlodipine 10 mg tablet 10 mg PO QHS 09/13/24 03/17/25 History hydrochlorothiazide 12.5 mg tablet 12.5 mg PO DAILY 09/13/24 03/17/25 History turmeric 400 mg PO DAILY 09/13/24 03/17/25 History Allergy/AdvReac Type Severity Reaction Status Date / Time ramipril (From Altace) Allergy Swelling Verified 03/10/25 09:13 ARB-Angiotensin Receptor AdvReac Severe Angioedema Verified 03/10/25 09:13 Antagonist Family History Mother Hypertension CVA (cerebral vascular accident) Diabetes Father Hypertension Cancer Grandmother CAD (coronary artery disease) Surgical History History of surgery on wrist History of esophagogastroduodenoscopy (EGD) History of colonoscopy History of repair of right rotator cuff History of medial meniscus repair of right knee History of ankle surgery History of foot surgery S/P hysterectomy (~2017) Social History Smoking Status: Never smoker alcohol intake: current substance use type: does not use Review of Systems (Anesthesia) ROS Narrative System reviewed and no additional complaints, except as documented.
--- NOTE | 2025-03-18 07:06 | HP.PCM_ITS ---
History and Physical
--- NOTE | 2025-03-18 07:06 | PCM.HP.BLA ---
History and Physical Date of Admission: 03/18/25 [facility] [address] [place] [address] OFFICE VISIT Date of Service: 02/28/25 MR#: [id number] Acct: [id number] Name: ROSANNE MCCLAIN Rep #: [id number] : 1960 Provider: Dr. Brian Garcia, DO Age/Sex: 64/F Location: [facility] [place] Status: Signed Intake Vital Signs 09/23/2510:42 Height 5 ft 2 in Intake Visit Reasons: RIGHT HAND Accompanied by: Self Allergies ramipril (From Altace) Allergy (Verified 02/28/25 10:02) Swelling ARB-Angiotensin Receptor Antagonist Adverse Reaction (Severe, Verified 02/28/25 10:02) Angioedema Medications ?Medication ?Instructions ?Recorded ?Confirmed ?Type levothyroxine 125 mcg tablet 100 mcg PO DAILY 03/18/15 02/28/25 History cholecalciferol (vitamin D3) 50 2,000 unit PO DAILY 04/13/18 02/28/25 History mcg (2,000 unit) capsule (Vitamin D3) melatonin 3 mg capsule 3 mg PO HS PRN sleep 03/27/23 02/28/25 History omega-3 fatty acids 1,000 mg 1,000 mg PO DAILY 03/27/23 02/28/25 History capsule Held on 09/23/24. Instructions: Resume on 09/30/24. metoprolol succinate 25 mg 25 mg PO DAILY #90 tabs 05/27/24 02/28/25 Rx tablet,extended release 24 hr amlodipine 10 mg tablet 10 mg PO QHS 09/13/24 02/28/25 History hydrochlorothiazide 12.5 mg tablet 12.5 mg PO DAILY 09/13/24 02/28/25 History turmeric 400 mg PO DAILY 09/13/24 02/28/25 History Held on 09/23/24. Instructions: Resume on 09/30/24. acetaminophen 325 mg tablet 325 mg PO ONCE PRN pain 09/18/24 02/28/25 History (Tylenol) ciprofloxacin HCl 0.3 % eye drops See Rx Instructions ophthalmic 01/04/25 02/28/25 Rx (eye) .COMPLEX #10 mL Have you fallen in the past year?: Yes PFSH Medical History Wears contact lenses Wears glasses Thyroid disease History of edema Non-smoker History of stress test Heart murmur History of echocardiogram Cardiology follow-up encounter Essential (primary) hypertension Hyperlipidemia Postmenopausal bleeding Surgical History History of esophagogastroduodenoscopy (EGD) History of colonoscopy History of repair of right rotator cuff History of medial meniscus repair of right knee History of ankle surgery History of foot surgery S/P hysterectomy (~2018) Family History Mother Hypertension CVA (cerebral vascular accident) Diabetes Father Hypertension Cancer Grandmother CAD (coronary artery disease) Social History Smoking Status: Never smoker alcohol intake: current substance use type: does not use HPI RIGHT HAND Details: This documentation accurately reflects the service provided and the decisions made by me, Dr. Brian Garcia, DO 02/28/25 0820. Part of today?s visit was documented by Jamia PALAFOX, acting as scribe. ROSANNE MCCLAIN is a 64 year old F here today for EMG review of the right wrist. Her symptoms are unchanged 11/01/2024 visit:63 year old F here today for s/p left wrist ORIF distal radius DOS 09/23/2024. Patient denies any pain in the left wrist today and states she is doing well. Patient continues with OT and she has been going once a week right now for range of motion and scar management. Once she is cleared she is going to start going twice a week to start with strengthening exercises. She only has to take pain medication when she feels like she over uses the wrist but states it is not very often. Patient complains of right hand numbness/tingling that she has noticed at night and in the mornings. She has been wearing a brace to sleep in for a couple of years now and it has helped. The index, middle and ring finger goes numb quite often. She is RHD. She denies any injections. She has been working on nerve glide exercises but has not noticed any relief. Plan:Obtained and reviewed left wrist x-rays today in the clinic. Reviewed imaging findings in detail today with the patient and explained that the hardware maintains good positioning and the bones are healing. Explained she can increase her weight restrictions to 7 pounds at this time for next 2 weeks then she can slowly progress to full by another 4 weeks. She should continue with range of motion exercises as well as begin strengthening of the wrist but should be smart about her weight. I do not need to see her back for the left wrist unless she has any concerns or new injuries. After evaluation of the right wrist she does have carpal tunnel symptoms and we would need an EMG study done to evaluate for carpal tunnel. She would like to wait to proceed with carpal tunnel release surgery until March so recommend she wait until January to get an EMG study done. She should call the office closer to January and let us know she would like to get the testing done and we can order the test at that time. Follow up after the EMG study to review and get carpal tunnel release surgery scheduled or sooner if pain, swelling, numbness or associated symptoms, or concerns develop. All questions answered. Patient in agreement of plan. Ortho Exam General General: Yes no acute distress and Yes well groomed Neurologic: Yes alert and Yes oriented x3 Psychologic: Yes reasonable and appropriate Right Wrist/Hand Skin/Wound: Yes CDI, No Swelling, No Ecchymosis, Yes nail intact and Yes capillary refill normal Right Wrist: Yes ROM-Extension 0-60, ROM-Flexion 0-80, ROM-Pronation 0-80, ROM-Supination 0-90, Durken's Test and Phalen's WRIST: mild Tinel's into the middle + Phalens good abduction strength Left Wrist/Hand Skin/Wound: Yes CDI, No Swelling and No Ecchymosis WRIST: full supination full pronation 78 wrist extension 48 wrist flexion Constitutional: Well-developed; well-nourished; in no acute distress Eyes: No jaundice ENT: Nares patent; no obvious deformity Cardiovascular: No cyanosis; clubbing; or edema Lymphatic: No adenopathy in area of examination Skin: No rashes or lesions in the area of examination and intact Neurologic: Alert and oriented x 3 Psychiatric: Mood and affect appropriate Supplemental Info 02/26/2025 EMG right upper extremity:1. Electrodiagnostic findings suggestive of right sided median mononeuropathy. This is consistent with a moderate right carpal tunnel syndrome. 11/01/2024 x-ray left wrist: Status post ORIF distal radius with good alignment 09/23/2024 ORIF left distal radius: Dr. Garcia 09/13/2024 x-ray Left wrist: left wrist pre and postreduction x-rays intra-articular impacted dorsally angulated distal radius fracture prereduction postreduction anatomic is improved however there is some residual tilt to the articular surface dorsal tilt to articular surface 11 degrees. Coding Level of Care Code Off vis,est,level 3 Diagnoses Carpal tunnel syndrome, right G56.01 Assessment and Plan Assessment and Plan (1) Carpal tunnel syndrome, right: Status: Acute Plan Patient is here today for EMG review for the right hand. I spoke with patient that the EMG does show carpal tunnel like we had suspected. Patient would like to proceed with surgery but would like to wait until March 17 or after for surgery. We will shoot for a planned tentative date of March [id number] I advised patient that she should not take any NSAIDs 7 days before surgery but she can take Tylenol if she needs it. I did review the surgery procedure today as well as risks and benefits. I spoke with patient that the first 2 weeks after surgery she will have a 1/2 pound lifting restriction then 5 pound restriction for an additional week , Risks of surgery include but not limited to bleeding infection nerve artery tissue damage need for further surgery continued pain incisional hypersensitivity pillar pain, continued carpal tunnel symptoms or delay until symptom relief. Follow up at 2 weeks post-op or sooner if pain, swelling, numbness or associated symptoms, or concerns develop. All questions answered. Patient in agreement of plan. Clinical Quality Measures Falls Risk Screening/Assistive Devices Have you fallen in the past year?: Yes 02/28/25 1104 <Electronically signed by Brian Garcia DO> Date Brian Garcia DO I have examined the patient and the H&P has been reviewed. There are no clinical changes since date of exam.
[2025-03-18] MEDS: Midazolam 2 MG/2 ML Syringe IV (07:26)
[2025-03-18] MEDS: Lactated Ringers 1,000 ML 1000 ML IV (07:26)
[2025-03-18] MEDS: Cefazolin 1 GM/5 ML Vial 2 GM IV (07:30)
[2025-03-18] MEDS: Lidocaine 1% (5 ml sdv) 5 ML Vial IV (07:32)
[2025-03-18] MEDS: fentaNYL 100 MCG/2 ML Ampul IV (07:33)
[2025-03-18] MEDS: Bupiv/Epi 0.25% 30 ML Vial (07:45)
--- NOTE | 2025-03-18 07:52 | OP.PCM_ITS ---
Operative Report (Standard)
--- NOTE | 2025-03-18 07:52 | PCM.OPRPT ---
Operative Report (Standard) Operative Information Date of Procedure: 03/18/25 Pre-Operative Diagnosis: Right carpal tunnel Post-Operative Diagnosis: Same Surgery/Procedure Performed: Right carpal tunnel release memorandum statement clerk: Yes Patient Relations Director: Celestino Fitzgerald Tasks completed by nurse first aid: Opening & closing Type of Anesthesia: Local and MAC RN Documented Start/Stop Times: Operation Date: 03/18/25 07:30 Case Time Into Pre-Op 03/18/25 06:02 Out of Pre-Op 03/18/25 07:24 Anesthesia Start 03/18/25 07:26 Into Room 03/18/25 07:26 Procedure Start 03/18/25 07:41 Procedure Start Time: 07:41 Procedure Stop Time: 07:52 Select all DRAINS/GRAFTS/IMPLANTS that apply: None Estimated Blood Loss: 0 Specimen collected: No Description of surgery: Preoperative diagnosis; right carpal tunnel syndrome Postoperative diagnosis; same Procedure: Right open carpal tunnel release Anesthesia: Local with MAC Tourniquet time; 11 minutes 250 mm Hg Complications: None Indication for procedure; This is a 64-year-old female with long-standing symptoms consistent with carpal tunnel syndrome the patient did have electrodiagnostic evidence of this and has failed conservative treatment. Risks benefits and alternatives were reviewed including risks of bleeding infection nerve artery tissue damage need for further surgery and continued pain and symptoms, hypersensitivity to scar and Pillar pain. Procedure; The patient was met in the preoperative holding area the operative extremity was identified by both patient and physician and was marked the patient was met by anesthesia and brought back to the operating room and transferred to the operating table in the supine position. Anesthesia was started. A well-padded tourniquet was placed on the operative upper extremity. The patient was prepped and draped in the usual sterile fashion. A timeout was called to ensure the proper patient procedure and extremity were being contemplated. 0.5 percent lidocaine with epinephrine was injected into the incisional area. An Esmarch was used to exsanguinate the extremity. The tourniquet was inflated to 250 mmHg. A midline incision was made with a 15 blade scalpel between the thenar and hypothenar eminence. This was carried down through the skin and subcutaneous tissue. Abdullahi retractors were then used, a deep blade scalpel was used to make a deep incision in the palmar aponeurosis. The abdullahi retractors were then placed deep to this and the transverse carpal ligament was identified a perforation was made with a scalpel and a Littler scissors were used to complete the release of the transverse carpal ligament distally under direct visualization with the tips facing ulnarly until the perivascular fat was reached. Then turning our attention proximally using a tension slide technique the proximal extent of the transverse carpal ligament was released . There was noted to be hypertrophy of the transcarpal ligament. The wound was thoroughly irrigated and was closed with 4-0 nylon vertical mattress stitches. Dressing was applied in the form of xeroform 4 x 4, web roll and an felix wrap. Tourniquet was let down there is no intraoperative complications patient tolerated the procedure well and was transferred to the PACU. All counts were correct. Surgical Findings: As above Complications Complications: No
--- NOTE | 2025-03-18 07:53 | DCINST_ITS ---
Discharge Instructions
--- NOTE | 2025-03-18 07:53 | EX.PCM.DISCH ---
Discharge Instructions Diet Discharge Diet: No restrictions Dressing / Incision Call your doctor if you observe: Shortness of breath and Chest pain Additional Dressing/Incision Instructions:: Ice and elevate operative extremity next 72 hours. Keep dressing on clean and dry for 48 hours then may remove and allow warm soapy water to rinse over incision but do not submerge until sutures are out. Then apply bandaid over incision and change daily. encourage finger range of motion. Not lift more than 1/2 pound. Minimize narcotic use only as needed and directed, may use OTC NSAID and Tylenol to supplement/substitute for pain control. Follow Up Care Please Follow Up With: Brian Garcia DO When: 2 weeks Test Results: Test results from this visit will be discussed in further detail at your follow-up appointment, if applicable. Discharge Plan Admission Primary Reason for Your Visit: Right carpal tunnel release Attending Provider: Brian Garcia Primary Care Provider: Augustine Pace Instructions Print Language: [place] Citizen Discharge Orders/Prescriptions Prescriptions: New oxycodone 5 mg tablet 5 - 10 mg PO Q6H PRN (Reason: pain) 7 Days Qty: 7 0RF No Action melatonin 3 mg capsule 3 mg PO HS PRN (Reason: sleep) Patient Comments: PT STATES SHE TAKES A COMBINATION SUPPLEMENT THAT CONTAINS BOTH MELATONIN AND MAGNESIUM. omega-3 fatty acids 1,000 mg capsule 1,000 mg PO DAILY levothyroxine 125 MCG tablet 100 mcg PO DAILY cholecalciferol (vitamin D3) [Vitamin D3] 2,000 UNIT capsule 2,000 unit PO DAILY amlodipine 10 mg tablet 10 mg PO QHS hydrochlorothiazide 12.5 mg tablet 12.5 mg PO DAILY turmeric 400 mg PO DAILY metoprolol succinate 25 mg tablet extended release 24 hr 25 mg PO DAILY Qty: 90 3RF Referrals / Follow Up: Augustine Pace MD [Primary Care Provider, Family Practice] Disposition Disposition (needs filled in before D/C Order can be placed): Home, Self Care
--- NOTE | 2025-03-18 08:05 | POSTOP.ANE_ITS ---
Anesthesia: Postop Eval I
--- NOTE | 2025-03-18 08:05 | PCM.POST.ANE ---
Anesthesia: Postop Eval I Current Vital Signs Temperature: 98.0 F Pulse Rate: 51 Blood Pressure: 138/69 Respiratory Rate: 20 Pulse Ox: 98 Oxygen Delivery Method: Room Air Assessment Airway patent: Yes Spontaneous unlabored respirations: Yes Mental status: Awake and Calm nausea: No Vomiting: No Anesthesia Complication: No Fluid Hydration Crystalloid volume administer (ml): 500 Total IV fluid infused: 500 Progress Note Anesthesia document: Postop Eval 1 completed: Yes
--- NOTE | 2025-03-18 08:45 | POSTOPAN2_ITS ---
Anesthesia Postop Eval I Sum
--- NOTE | 2025-03-18 08:45 | PCM.POSTANE2 ---
Anesthesia Postop Eval I Sum Postop Eval Completion status Anesthesia document: Postop Eval 1 completed: Yes Anesthesia Postop Eval I Summary Anesthesia Postop Eval I Summary: Anesthesia Postop Eval I: Assessment Summary Airway patent Yes 03/18/25 08:06 AMUSEMENT [email or web address] [email or web address] Spontaneous unlabored Yes 03/18/25 08:06 AMUSEMENT MACHINE [email or web address] respirations Mental status Awake,Calm 03/18/25 08:06 AMUSEMENT [email or web address] [email or web address] nausea No 03/18/25 08:06 AMUSEMENT MACHINE [email or web address] Vomiting No 03/18/25 08:06 AMUSEMENT [email or web address] [email or web address] Anesthesia Postop Eval I: Fluid Summary Crystalloid volume administer 500 03/18/25 08:06 AMUSEMENT [email or web address] [email or web address] (ml) Colloids volume administered ( ml) Blood Product volume administered (ml) Total IV fluid infused 500 03/18/25 08:06 AMUSEMENT MACHINE [email or web address] Anesthesia Postop Eval I: Summary Notes Anesthesia Complication No 03/18/25 08:06 AMUSEMENT MACHINE [email or web address] Anesthesia Complication Comment: Post-operative progress note Anesthesia: Postop Eval II Evaluation Mental status: Awake and Calm Pain Level: 1 nausea: No Vomiting: No Complications Anesthesia Complication: No
== END 2025-03-18 09:08 | disposition home or self-care (01) ==
LOC: SDC 05:53 → AC 05:54
PROVIDERS: PCP Family Medicine; Referring Provider Orthopaedic Surgery; Visit Provider Orthopaedic Surgery
PROC: (CPT 64721; principal; 2025-03-18 07:15)
DX: G56.01 Carpal tunnel syndrome, right upper limb (principal); E78.5 Hyperlipidemia, unspecified; I10 Essential (primary) hypertension; E07.9 Disorder of thyroid, unspecified; Z79.890 Hormone replacement therapy; Z79.899 Other long term (current) drug therapy
CPT/HCPCS: 64721; 01810

== ENCOUNTER → 2025-04-16 | Outpatient (CLI) | payer MEDICARE, SELFPAY ==
--- OUTSIDE RECORDS SUMMARY | 2025-04-16 07:14 | XMS RPT_ITS | CCD ---
Author Organization [facility] Care Team Providers Care Profiler Name Role Phone No, Physician Primary Care Provider Unavailabl e NO, PHYSICIAN Primary Care Unavailable NGUYỄN SEGURA Referring Unavailable NGUYỄN SEGURA Admitting Unavailable JONATHAN AGUDELO Attending Unavailable NGUYỄN SEGURA Attending Unavailable ERIKA, PHYSICIAN Primary Care Unavailable Rose Mary Ocasio Primary Care Provider Rose Mary Ocasio Primary Care Provider [phone] Rose Mary Ocasio Primary Care Provider [phone] Ninfa, Rose Mary Schillinger Primary Care Provider ROSE MARY OCASIO KASEY Primary Care Unavailable DESTINY RANDALL Referring Unavailab le CHICORELDESTINY AVILA Attending [...] DESTINY RANDALL Referring Unavailab ROSE MARY Sands Primary Care Unavailable Ninfa, Dr. Rose Mary Melgar Primary Care Provider Dr. Yahir Tesfaye Attending Provider Dr. Yahir Tesfaye Referring Provider Rose Mary Ocasio Primary Care Provider Dr. Rose Mary Ocasio MD Primary Care Provider Balbir PAYNE, Dr. Brody Attending Provider Balbir PAYNE, Dr. Brody Emergency Provider Ninfa PAYNE, Dr. Rose Mary Melgar Referring Provider Jose BIGGS, Dr. Torres Attending Provider Jose BIGGS, Dr. Torres Referring Provider Sanjeev PAYNE, Dr. Bradshaw Primary Care Provider Jose BIGGS, Dr. Torres Other Provider Sanjeev PAYNE, Dr. Bradshaw Primary Care Provider Dr. Jad Teixeira MD Attending Provider Jose BIGGS, Dr. Torres Referring Provider Dr. Augustine Pace MD Referring Provider Dr. Augustine Pace MD Attending Provider Dr. Yahir Tesfaye MD Attending Provider Mac Dumont Attending Provider Dr. Augustine Pace MD Primary Care Physician Jose BIGGS, Dr. Torres Attending Physician Dr. Augustine Pace MD Attending Physician Dr. Augustine Pace MD Referring Provider Mac Dumont Attending Physician Dr. Brian Garcia DO Referring Provider Jose BIGGS, Dr. Torres Nurse Practitioner Kristopher PAYNE, Dr. Herrera Attending Physician Tamara Del Cid Attending Unavailable Jolliff, Rose Mary S Primary Care Unavailable Jolliff, Rose Mary S Referring Unavailable Pace, Augustine Primary Care Unavailable Pace, Augustine Referring Unavailable Borruso, Brian Attending Unavailable Tamara Del Cid Attending Unavailable Jolliff, Rose Mary S Primary Care Unavailable Mera, Yahir Attending Unavailable Jolliff, Rose Mary S Primary Care Unavailable Pace, Augustine Primary Care Unavailable Borruso, Brian Referring Unavailable Borruso, Brian Attending Unavailable Pace, Augustine Primary Care Unavailable Borruso Brian Attending Unavailable Ronn Mcgregor Attending Unavailable Jolliff, Rose Mary S Primary Care Unavailable Pace, Augustine Referring Unavailable Pace, Augustine Primary Care Unavailable Pace, Augustine Attending Unavailable Pace, Augustine Primary Care Unavailable Borruso, Brian Referring Unavailable Jad Teixeira Attending Unavailable Pace, Augustine Primary Care Unavailable Javier Summers Attending Unavailable Borruso, Brian Consulting Unavailable Borruso, Brian Referring Unavailable Pace, Augustine Primary Care Unavailable Borruso, Brian Consulting Unavailable Borruso, Brian Referring Unavailable Borruso, Brian Attending Unavailable Pace, Augustine Primary Care Unavailable Borruso, Brian Consulting Unavailable Borruso, Brian Referring Unavailable Borruso, Brian Attending Unavailable Pace, Augustine Primary Care Unavailable Pace, Augustine Referring Unavailable Borruso, Brian Attending Unavailable Jolliff, Rose Mary S Referring Unavailable Borruso, Brian Attending Unavailable Jolliff, Rose Mary S Primary Care Unavailable Pace, Augustine Primary Care Unavailable Pace, Augustine Referring Unavailable Pace, Augustine Attending Unavailable Mera, Yahir Referring Unavailable Mera, Yahir Attending Unavailable Jolliff, Rose Mary S Primary Care Unavailable Jolliff, Rose Mary S Referring Unavailable Jolliff, Rose Mary S Attending Unavailable Jolliff, Rose Mary S Primary Care Unavailable Pace, Augustine Referring Unavailable Pace, Augustine Primary Care Unavailable Pace, Augustine Attending Unavailable Pace, U[place]ust[place] Referring Unavailable Pace, Augustine Primary Care Unavailable Pace, Augustine Attending Unavailable Pace, Augustine Primary Care Unavailable Borruso, Brian Referring Unavailable Borruso, Brian Attending Unavailable Pace, Augustine Primary Care Unavailable Borruso, Brian Referring Unavailable Borruso, Brian Attending Unavailable Pace, Augustine Primary Care Unavailable Pace, Augustine Referring Unavailable Borruso, Brian Attending Unavailable Pace, Augustine Primary Care Unavailable Pace, Augustine Referring Unavailable Mac Ramirez Attending Unavailable Pace, Augustine Referring Unavailable Borruso, Brian Attending Unavailable Pace, Augustine Primary Care Unavailable Yahir Tesfaye Attending Unavailable Augustine Pace Primary Care Unavailable Allergies Allergy Classification Reported Allergen(s) Allergy Type Date of Onset Reaction(s) Facility (20 sources) Ramipril; Translations: [RAMIPRIL] Drug Allergy 5 Swelling [facility] (11 sources) ARB-Angiotensin Receptor Antagonist Propensity to adverse reactions 5 Angioedema [facility] (1 source) Ramipril Drug Allergy 5 [facility] (1 source) ARB-Angiotensin Receptor Antagonist Drug allergy (disorder) 5 [facility] Repository Medications Current Medications Medication Drug Class(es) Dates Sig (Normalized) Sig (Original) acetaminophen 325 mg oral tablet (11 sources) Start: 09-18-2024 End: 03-10-2025 take 1 tablet by mouth once as needed for pain Acetaminophen (Tylenol) 325 mg tablet Discontinued 325 mg PO ONCE as needed for pain September 18, 2024 12:00am March 10, 2025 9:14am amLODIPine 10 mg oral tablet (20 sources) Dihydropyridine Calcium Channel Dionte Start: 09-13-2024 take 1 tablet by mouth at bedtime Amlodipine 10 mg tablet Active 10 mg PO AT BEDTIME September 13, 2024 12:00am Complies with drug therapy Start: 05-03-2023 End: 09-13-2024 take 1 tablet by mouth once daily Amlodipine 5 mg tablet Discontinued 5 mg PO DAILY 90 3 July 12, 2023 4:54pm September 13, 2024 2:14pm Start: 03-18-2015 End: 05-03-2023 take 1 tablet by mouth once daily Amlodipine 2.5 MG tablet Discontinued 2.5 mg PO DAILY March 18, 2015 1:00am May 03, 2023 10:51am Comment on above: Take 2.5 mg by mouth once daily. cholecalciferol 0.05 mg oral capsule (20 sources) Vitamin D Start : 04-13 take 1 capsule by mouth once daily Cholecalciferol (Vitamin D3) (Vitamin D3) 2,000 UNIT capsule Active 2000 U PO DAILY April 13, 2018 1:00am Complies with drug therapy Comment on above: Take 1 capsule by [facility] once daily. ciprofloxacin 3 mg/ml ophthalmic solution (1 source) Quinolone Antimicrobial Start : 01-04 End: 03-10 Ciprofloxacin Hcl 0.3 % drops Discontinued 0 OPHTHALMIC .COMPLEX 10 0 January 04, 2025 12:00am March 10, 2025 9:15am put 1-2 drps in affected eye(s) every 2hr up to 8 times/day x2days; then 4 times/day x5days ophthalmic (eye) Ciprofloxacin Hcl 0.3 % drops (1 source) Start : 01-04 Ciprofloxacin Hcl 0.3 % drops Active 0 OPHTHALMIC .COMPLEX 10 0 January 04, 2025 12:00am put 1-2 drps in affected eye(s) every 2hr up to 8 times/day x2days; then 4 times/day x5days ophthalmic (eye) hydroCHLOROthiazide 12.5 mg oral tablet (20 sources) Thiazide Diuretic Start : 09-13 take 1 tablet by mouth once daily Hydrochlorothiazide 12.5 mg tablet Active 12.5 mg PO DAILY September 13, 2024 12:00am Complies with drug therapy Start: 04-08-2024 End: 09-13-2024 Hydrochlorothiazide 25 mg [...] ug PO DAILY March 18, 2015 1:00am Complies with drug therapy Start: 03-18-2015 take 125 ug by mouth once daily Levothyroxine Active 125 MCG PO DAILY March 18, 2015 1:00am Comment on above: Take 125 mcg by mout h daily before breakfast. melatonin 3 mg oral capsule (20 sources) Start: 03-27-2023 take 1 capsule by mouth at bedtime as needed for sleep Melatonin 3 mg capsule Active 3 mg PO BEDTIME as needed for sleep March 27, 2023 1:00am Complies with drug therapy take 1 capsule by mo uth once [...] 24 hr Active 25 mg PO DAILY 90 3 May 27, 2024 5:57pm Complies with drug therapy Start: 05-03-2023 End: 04-08-2024 take 1 tablet by mouth once daily Metoprolol Succinate (Toprol Xl) 50 mg tablet extended release 24 hr Discontinued 50 mg PO DAILY 90 3 July 12, 2023 4:54pm April 08, 2024 10:15am Start: 03-27-2023 End: 05-03-2023 take 1 tablet by mouth once daily Metoprolol Tartrate 100 mg tablet Discontinued 100 mg PO DAILY 30 0 May 03, 2023 9:57am May 03, 2023 10:40am Start: 04-21-2018 End: 03-27-2023 Metoprolol Tartrate 100 MG t ablet Discontinued 50 mg PO DAILY 30 0 April 21, 2018 1:15pm March 27, 2023 9:36am Start: 04-21-2018 take 50 mg by mouth once daily Metoprolol Tartrate Active 50 MG PO DAILY April 21, 2018 1:15pm Start: 03-18-2015 End: 04-21-2018 take 1 tablet by mouth once daily Metoprolol Tartrate 100 MG tablet Discontinued 100 mg PO DAILY 0 April 20, 2018 1:00am April 21, 2018 [...] months June 29, 2021 1:00am Handicap placard Canalou-3 Fatty Acids 1,000 mg capsule (11 sources) Start: 03-27-2023 take 1 capsule by mouth once daily Canalou-3 Fatty Acids 1,000 mg capsule Active 1000 mg PO DAILY March 27, 2023 1:00am Complies with drug therapy Start: 03-27-2023 take 1 capsule by mo [facility] once daily Canalou-3 Fatty Acids 1,000 mg capsule Active 1000 mg PO DAILY March 27, 2023 1:00am On Hold: Resume on 09/30/24. Turmeric extract (11 sources) Start: 09-13-2024 take 400 mg by mouth once daily turmeric Active 400 mg PO DAILY September 13, 2024 12:00am Complies with drug therapy Start: 09-13-2024 take 400 mg by mouth once beto y turmeric Active 400 mg PO DAILY September 13, 2024 12:00am On Hold: Resume on 09/30/24. Completed/Discontinued Medications Medication Drug Class(es) Dates Sig (Normalized) Sig (Original) acetaminophen 325 mg / HYDROcodone bitartrate 5 mg oral tablet (11 sources) Opioid Agonist Start: 09-13-2024 End: 09-18-2024 Hydrocodone-Acetami nophen 5-325 mg tablet Discontinued 1 {tbl} PO EVERY 4 HOURS NEEDED as needed for Pain 14 5 0 September 13, 2024 September 18, 2024 8:37am Fracture of left wrist acetaminophen 325 mg / oxyCODONE hydrochloride 5 mg oral tablet (11 sources) Opioid Agonist Start: 07-27-2021 take 1 tablet by mouth every six hours as needed for pain oxyCODONE-acetamino phen (PERCOCET) 5-325 mg tablet Indications: Postoperative pain Take 1 tablet by mouth every 6 hours as needed for pain. 25 tablet 0 07/27/2021 Active Comment on above: Take 1 tablet by christin every 6 hours as needed for pain. 5 ml bupivacaine hydrochloride 5 mg/ml injection (1 source) Amide Local Anesthetic Start: 01-06-2022 End: 01-06-2022 bupivacaine (PF) 0.5 % (5 mg/mL) 4 mL injection Start: 01-06-2022 End: 01-06-2022 bupivacaine (PF) 0.5 % (5 mg /mL) 4 mL injection cephalexin 500 mg oral capsule (11 sources) Cephalosporin Antibacterial Start: 09-23-2024 End: 02-28-2025 Cephalexin 500 mg capsule Discontinued 1000 mg PO Q8H 4 0 September 23, 2024 12:00am February 28, 2025 10:03am Take 2 tabs before you go to bed and 2 tabs after 5 AM morning after surgery when you wake up estradiol 0.1 mg/ml vaginal cream (19 sources) Estrogen Start: 04-21-2018 End: 04-19-2021 Estradiol (Estrace Vaginal Cream) 42.5 GM cream Discontinued 1 NMA VAGINAL AT BEDTIME 1 0 April 21, 2018 1:00am April 19, 2021 12:51pm Apply toothpaste size amount vaginally at bedtime Start: 04-21-2018 End: 04-19-2021 Estradiol (Estrace Vaginal C ream) 42.5 GM cream Discontinued 1 DOSE VAGINAL AT BEDTIME April 21, 2018 1:00am April 19, 2021 12:51pm Apply toothpaste size amount vaginally at bedtime fexofenadine hydrochloride 180 mg oral tablet (20 sources) Histamine-1 Receptor Antagonist Start: 03-27-2023 End: [...] propionate 0.05 mg/actuat metered dose nasal spray (11 sources) Corticosteroid Start: 03-27-2023 End: 09-19-2024 Fluticasone [...] TIMES A DAY as needed for Pain 30 0 April 20, 2018 9:34am September 18, 2024 8:37am 10 ml lidocaine hydrochloride 10 mg/ml injection (1 source) Antiarrhythmic, Amide Local Anesthetic Start: 04-15-2022 End: 04-15-2022 lidocaine (PF) 10 mg/mL (1 %) 3 mL injection (XYLOCAINE) Start: 04-15-2022 End: 04-15-2022 lidocaine (PF) 10 mg/mL (1 % ) 3 mL injection (XYLOCAINE) liothyronine sodium 0.025 mg oral tablet (20 sources) l-Triiodothyronine Start: 03-18-2015 End: 11-01-2024 take 1 tablet by mouth once daily Liothyronine 25 MCG tablet Discontinued 25 ug PO DAILY March 18, 2015 1:00am November 01, 2024 8:57am Comment on above: Take 25 mcg by mouth once daily. magnesium chloride 535 mg delayed release oral tablet (11 sources) Start: 03-27-2023 End: 09-13-2024 take 1 [...] mg tablet Discontinued 15 mg PO DAILY 30 0 May 17, 2021 11:39am May 03, 2023 9:59am Right knee pain Pain in right knee Right knee pain Do not take in conjunction with other NSAIDs. Comment on above: Take 1 tablet by christin th once daily. take 1 tablet by christin th once daily Miscellaneous Medical Supply misc (11 sources) Start: 06-29-2021 End: 05-03-2023 Miscellaneous Medical Supply misc Discontinued 1 NMA MC .6 months 1 June 29, 2021 1:00am May 03, 2023 10:00am Handicap placard Start: 06-29-2021 End: 05-03-2023 Miscellaneous Medical Supply misc Discontinued 1 NMA MC .6 months June 29, 2021 1:00am May 03, 2023 10:00am Handicap placard omega 7-aay-xmm-fish oil 1,000 mg (250 mg-750 mg)/5 mL liqd (11 sources) take 1 capsule by mouth once daily omega 4-kuh-jsg-fish oil 1,000 mg (250 mg-750 mg)/5 mL liqd Take 1 capsule by mouth once daily. 0 Active Comment on above: Take 1 capsule by mo ut once daily. ondansetron 4 mg oral tablet (11 sources) Serotonin-3 Receptor Antagonist Start: 07-28-19 take 1 tablet by mouth every eight hours as needed ondansetron (ZOFRAN) 4 mg tablet Take 1 tablet by mouth every 8 hours as needed for nausea/vomiting. 10 tablet 0 07/27/2021 Active Comment on above: Take 1 tablet by christin th every 8 hours as needed for nausea/vomiting. oxyCODONE hydrochloride 5 mg oral tablet (11 sources) Opioid Agonist Start: 09-24-19 End: 10-01-19 take 5-10 mg by mouth every four hours as needed for pain Oxycodone 5 mg tablet Discontinued 5 - 10 mg PO Q4H as needed for pain 20 5 0 September 23, 2024 September 30, 2024 10:10am Other acute postprocedural pain Other acute postprocedural pain predniSONE 10 mg oral tablet (14 sources) Start: 09-23-19 End: 05-03-20 take 4 tablets by mouth once daily, then take 3 tablets by mouth once daily, then take 2 tablets by mouth once daily, then take 1 tablet by mouth once daily Prednisone 10 mg tablet Discontinued 10 mg PO As Directed 30 September 22, 2022 12:00am May 03, 2023 [...] days with food. 21 tablet 10/26/2020 11/04/2020 triamcinolone acetonide 40 mg/ml injectable suspension (3 sources) Corticosteroid Start: 09-30-2022 End: 05-03-2023 inject 40 mg by intramuscular injection once Triamcinolone Acetonide (Kenalog) 40 mg/mL suspension Discontinued 40 mg IM ONCE 1 0 September 30, 2022 12:00am May 03, 2023 10:00am Start: 01-06-2022 End: 01-06-2022 triamcinolone acetonide 40 m g injection (KeNALog 40) Start: 10-26-2020 End: 07-23-2021 triamcinolone (KENALOG) 0.02 5 % cream Indications: Dermatitis due to plants, including poison vijay, sumac, and oak Apply 1 application to affected area twice daily. 30 g 10/26/2020 07/23/2021 Discontinued Triamcinolone Acetonide (Kenalog) 40 mg/mL suspension (12 sources) Start: 09-30-2022 End: 05-03-2023 inject 40 mg by intramuscular injection once Triamcinolone Acetonide (Kenalog) 40 mg/mL suspension Discontinued 40 mg IM ONCE 1 0 September 30, 2022 12:00am May 03, 2023 10:00am Start: 09-30-2022 End: 05-03-2023 inject 40 mg [...] plants, except food] 09-22-2022 Episodic Cardiac dysrhythmias (19 sources) Bradycardia; Translations: [Bradycardia, unspecified] 04-21-2018 Episodic Disorders of lipid metabolism (11 sources) Hyperlipidemia; Translations: [Hyperlipidemia, unspecified] 03-27-2023 Chronic E Codes: Fall (11 sources) Fall; Translations: [Unspecified fall, initial encounter] 09-21-2024 Episodic Essential hypertension (20 sources) Essential hypertension; Translations: [Essential (primary) hypertension] Onset: 01-07-2020 07-23-2021 Chronic Fluid and electrolyte disorders (19 sources) Hyponatremia; Translations: [Hypo-osmolality and hyponatremia] 04-21-2018 Episodic Heart valve disorders (12 sources) Aortic valve stenosis; Translations: [Nonrheumatic aortic (valve) stenosis] Onset: 04-30-2024 05-03-2023 Chronic Heart valve disorders (11 sources) Heart murmur; Translations: [Cardiac murmur, unspecified] 03-27-2023 Episodic Inflammation; infection of eye (except that caused by tuberculosis or sexually transmitteddisease) (3 sources) Viral conjunctivitis; Translations: [Viral conjunctivitis, unspecified] 01-04-2025 Episodic Joint disorders and dislocations; trauma-related (2 sources) Tear of medial meniscus of knee; Translations: [Other tear of medial meniscus, current injury, right knee, initial encounter] Episodic Menopausal disorders (19 sources) Postmenopausal bleeding; Translations: [Postmenopausal bleeding] 04-21-2018 Chronic Osteoarthritis (5 sources) Osteoarthritis of right knee joint; Translations: [Unilateral primary osteoarthritis, right knee] Chronic Other acquired deformities (19 sources) Deformity of lower limb; Translations: [Other specified acquired deformities of left lower leg] 04-21-2018 Episodic Other aftercare (20 sources) Follow-up status; Translations: [Encounter for other orthopedic aftercare] 09-30-2024 Episodic Other connective tissue disease (19 sources) Enthesopathy of foot region; Translations: [Other enthesopathies, not elsewhere classified] 04-21-2018 Episodic Other connective tissue disease (19 sources) Disorder of fascia; Translations: [Disorder of muscle, unspecified] 04-21-2018 Episodic Other connective tissue disease (8 sources) Plantar fasciitis; Translations: [Plantar fascial fibromatosis] 04-21-2018 Episodic Other connective tissue disease (1 source) Pes anserinus bursitis of right knee; Translations: [Other bursitis of knee, right knee] Episodic Other connective tissue disease (11 sources) Plantar fasciitis of left foot; Translations: [Plantar fascial fibromatosis] 12-09-2016 Episodic Other female genital disorders (19 sources) Endometrial hyperplasia; Translations: [Endometrial hyperplasia, unspecified] 04-21-2018 Chronic Other injuries and conditions due to external causes (1 source) Thumb injury ; Translations: [Unspecified injury of left wrist, hand and finger(s), initial encounter] 10-26-2020 Episodic Other nervous system disorders (10 sources) Carpal tunnel syndrome of right wrist; Translations: [Carpal tunnel syndrome, right upper limb] 11-01-2024 Chronic Other nervous system disorders (2 sources) Carpal tunnel syndrome, right upper limb; Translations: [Carpal tunnel syndrome, right upper limb] Onset: 03-11-2025 Chronic Other nervous system disorders (11 sources) Acute postoperative pain; Translations: [Other acute postprocedural pain] 09-23-2024 Episodic Other non-traumatic joint disorders (1 source) Pain in right knee; Translations: [Pain in joint, lower leg] Episodic Other nutritional; endocrine; and metabolic disorders (11 sources) Morbid obesity; Translations: [Morbid (severe) obesity due to excess calories] Onset: 07-23-2021 07-23-2021 Chronic Other screening for suspected conditions (not mental disorders or infectious disease) (1 source) Encounter for screening mammogram for malignant neoplasm of breast; Translations: [Encounter for screening mammogram for malignant neoplasm of breast] Onset: 03-11-2025 Episodic Thyroid disorders (20 sources) Hypothyroidism; Translations: [Hypothyroidism, unspecified] Onset: 07-23-2021 07-23-2021 Chronic Unclassified (9 sources) S52.572A - Other intraarticular fracture of lower end of left radius, initial encounter for closed fracture Unclassified (3 sources) Fracture of distal end of left radius Past or Other Problems Problem Classification Problem Date Documented Da te Episodic/Chronic Fracture of upper limb (20 sources) Fracture of unspecified carpal bone, left wrist, initial encounter for closed fracture; Translations: [Fracture of left wrist] Onset: 11-22-2024 09-21-2024 Episodic Nonmalignant breast conditions (20 sources) Hypertrophy of breast; Translations: [Hypertrophy of breast] Onset: 08-04-2014 08-04-2014 Episodic Other aftercare (1 source) Encounter for other orthopedic aftercare; Translations: [Encounter for other orthopedic aftercare] Onset: 09-30-2024 Episodic Other injuries and conditions due to external causes (1 source) Unspecified injury of left wrist, hand and finger(s), initial encounter; Translations: [Unspecified injury of left wrist, hand and finger(s), initial encounter] Onset: 09-17-2024 Episodic Residual codes; unclassified (1 source) Asymptomatic menopausal state; Translations: [Asymptomatic menopausal state] Onset: 11-06-2024 Episodic Results Test Name Value Interpretation Reference Range Facility Discharge Instructionon 11-0 Discharge Instruction [facility] Medical Records Department [address] [place] [address] Instructions for Home/Discharge Instructions 03/18/25 0753 MR#: [id number] Acct: [id number] Name: ROSANNE BANERJEE Rep #: [id number] : [id number] 64 From: Brian Garcia DO PCP: Dr. Augustine Pace MD Status:REG [facility] Discharge Instructions Diet Discharge Diet: No restrictions Dressing / Incision Call your doctor if you observe: Shortness of breath and Chest pain Additional Dressing/Incision Instructions:: Ice and elevate operative extremity next 72 hours. Keep dressing on clean and dry for 48 hours then may remove and allow warm soapy water to rinse over incision but do not submerge until sutures are out. Then apply bandaid over incision and change daily. encourage finger range of motion. Not lift more than 1/2 pound. Minimize narcotic use only as needed and directed, may use OTC NSAID and Tylenol to supplement/substitute for pain control. Follow Up Care Please Follow Up With: Brian Garcia DO When: 2 weeks Test Results: Test results from this visit will be discussed in further detail at your follow-up appointment, if applicable. Discharge Plan Admission Primary Reason for Your Visit: Right carpal tunnel release Attending Provider: Brian Garcia Primary Care Provider: Augustine Pace Instructions Print Language: Greenlandic Discharge Orders/Prescriptions Prescriptions: New oxycodone 5 mg tablet 5 - 10 mg PO Q6H PRN (Reason: pain) 7 Days Qty: 7 0RF No Action melatonin 3 mg capsule 3 mg PO HS PRN (Reason: sleep) Patient Comments: PT STATES SHE TAKES A COMBINATION SUPPLEMENT THAT CONTAINS BOTH MELATONIN AND MAGNESIUM. omega-3 fatty acids 1,000 mg capsule 1,000 mg PO DAILY levothyroxine 125 MCG tablet 100 mcg PO DAILY cholecalciferol (vitamin D3) [Vitamin D3] 2,000 UNIT capsule 2,000 unit PO DAILY amlodipine 10 mg tablet 10 mg PO QHS hydrochlorothiazide 12.5 mg tablet 12.5 mg PO DAILY turmeric 400 mg PO DAILY metoprolol succinate 25 mg tablet extended release 24 hr 25 mg PO DAILY Qty: 90 3RF Referrals / Follow Up: Augustine Pace MD [Primary Care Provider, Family Practice] Disposition Disposition (needs filled in before D/C Order can be placed): Home, Self Care 03/18/25 0755 Brian Garcia DO CC: Dr. Augustine Pace MD Signed [facility] MR/POSTOP.ANEon 03-18-2025 MR/POSTOP.ANE [facility] Medical Records Department [address] [place] [address] Anesthesia Postop Eval I 03/18/25 0805 MR#: [id number] Acct: [id number] Name: ROSANNE BANERJEE Rep #: [id number] : [id number] 64 From: Niels Mcnally CRNA PCP: Dr. Augustine Pace MD Status:REG SDC Y Race: C Location: [place] [address] Anesthesia: Postop Eval I Current Vital Signs Temperature: 98.0 F Pulse Rate: 51 Blood Pressure: 138/69 Respiratory Rate: 20 Pulse Ox: 98 Oxygen Delivery Method: Room Air Assessment Airway patent: Yes Spontaneous unlabored respirations: Yes Mental status: Awake and Calm nausea: No Vomiting: No Anesthesia Complication: No Fluid Hydration Crystalloid volume administer (ml): 500 Total IV fluid infused: 500 Progress Note Anesthesia document: Postop Eval 1 completed: Yes 03/18/25805 Date Niels Mcnally CRNA Cosigner Signature: Date CC: Signed [facility] MR/[id number] 03-18-2025 MR/POSTOPAN2 [facility] Medical Records Department [address] [place] [address] Anesthesia Postop Eval II 03/18/25 0845 MR#: [id number] Acct: [id number] Name: ROSANNE BANERJEE Rep #: [id number] : 1960 64 From: Ramsey Melgoza MD PCP: Dr. Augustine Pace MD Status:REG SDC Y Race: C Location: [facility]05-15 Anesthesia Postop Eval I Sum Postop Eval Completion status Anesthesia document: Postop Eval 1 completed: Yes Anesthesia Postop Eval I Summary Anesthesia Postop Eval I Summary: Anesthesia Postop Eval I: Assessment Summary Airway patent Yes 03/18/25 08:06 HAT AND CAP [employer]S CUTTER HAND.PKEL Spontaneous unlabored Yes 03/18/25 08:06 HAT AND CAP [employer]S CUTTER HAND.PKEL respirations Mental status Awake,Calm 03/18/25 08:06 HAT AND CAP [employer]S CUTTER HAND.PKEL nausea No 03/18/25 08:06 HAT AND CAP PARTS CUTTER HAND.PKEL Vomiting No 03/18/25 08:06 HAT AND CAP PARTS CUTTER HAND.PKEL Anesthesia Postop Eval I: Fluid Summary Crystalloid volume administer 500 03/18/25 08:06 HAT AND CAP PARTS CUTTER HAND.PKEL (ml) Colloids volume administered ( ml) Blood Product volume administered (ml) Total IV fluid infused 500 03/18/25 08:06 HAT AND CAP PARTS CUTTER HAND.PKEL Anesthesia Postop Eval I: Summary Notes Anesthesia Complication No 03/18/25 08:06 HAT AND CAP PARTS CUTTER HAND.PKEL Anesthesia Complication Comment: Post-operative progress note Anesthesia: Postop Eval II Evaluation Mental status: Awake and Calm Pain Level: 1 nausea: No Vomiting: No Complications Anesthesia Complication: No 03/18/25 0846 Date Ramsey Melgoza MD Cosigner Signature: Date CC: Signed [facility] Operative Reporton 5 Operative Report [facility] Medical Records Department [address] [place] [address] Operative Report 03/18/25 0752 MR#: [id number] Acct: [id number] Name: ROSANNE BANERJEE Rep #: [id number] : 1960 64 From: Brian Garcia DO PCP: Dr. 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 Miller Head Wet Process: Celestino Fitzgerald Tasks completed by nurse first aid: Opening closing Type of Anesthesia: Local and MAC RN Documented Start/Stop Times: Operation Date: 03/18/25 07:30 Case Time Into Pre-Op 03/18/25 06:02 Out of Pre-Op 03/18/25 07:24 Anesthesia Start 03/18/25 07:26 Into Room 03/18/25 07:26 Procedure Start 03/18/25 07:41 Procedure Start Time: 07:41 Procedure Stop Time: 07:52 Select all DRAINS/GRAFTS/IMPLANTS that apply: None Estimated Blood Loss: 0 Specimen collected: No Description of surgery: Preoperative diagnosis; right carpal tunnel syndrome Postoperative diagnosis; same Procedure: Right open carpal tunnel release Anesthesia: Local with MAC Tourniquet time; 11 minutes 250 mm Hg Complications: None Indication for procedure; This is a 64-year-old female with long-standing symptoms consistent with carpal tunnel syndrome the patient did have electrodiagnostic evidence of this and has failed conservative treatment. Risks benefits and alternatives were reviewed including risks of bleeding infection nerve artery tissue damage need for further surgery and continued pain and symptoms, hypersensitivity to scar and Pillar pain. Procedure; The patient was met in the preoperative holding area the operative extremity was identified by both patient and physician and was marked the patient was met by anesthesia and brought back to the operating room and transferred to the operating table in the supine position. Anesthesia was started. A well-padded tourniquet was placed on the operative upper extremity. The patient was prepped and draped in the usual sterile fashion. A timeout was called to ensure the proper patient procedure and extremity were being contemplated. 0.5 percent lidocaine with epinephrine was injected into the incisional area. An Esmarch was used to exsanguinate the extremity. The tourniquet was inflated to 250 mmHg. A midline incision was made with a 15 blade scalpel between the thenar and hypothenar eminence. This was carried down through the skin and subcutaneous tissue. Brittaney retractors were then used, a deep blade scalpel was used to make a deep incision in the palmar aponeurosis. The brittaney retractors were then placed deep to this and the transverse carpal ligament was identified a perforation was made with a scalpel and a Littler scissors were used to complete the release of the transverse carpal ligament distally under direct visualization with the tips facing ulnarly until the perivascular fat was reached. Then turning our attention proximally using a tension slide technique the proximal extent of the transverse carpal ligament was released . There was noted to be hypertrophy of the transcarpal ligament. The wound was thoroughly irrigated and was closed with 4-0 nylon vertical mattress stitches. Dressing was applied in the form of xeroform 4 x 4, web roll and an felix wrap. Tourniquet was let down there is no intraoperative complications patient tolerated the procedure well and was transferred to the PACU. All counts were correct. Surgical Findings: As above Complications Complications: No 03/18/25 0753 Cosigner Signature (if applicable): CC: Dr. Augustine Pace MD; Dr. Brian Garcia DO Signed [facility] MR/PAT.[facility] 03-10-2025 MR/PAT.[facility] Medical Records Department [address] [place] [address] PAT - Anesthesia 03/10/25 1720 MR#: [id number] Acct: [id number] Name: ROSANNE BANERJEE Rep #: [id number] : 1960 64 From: Ramsey Melgoza MD PCP: Dr. 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 When Was Last Pacemaker Check QUESTION #4 FULL TEXT: You/Your Family Experience fever (hyperthermia) with Anesthesia Last Oral Intake Last Oral intake: Last Oral Intake NPO since Meds taken in AM with sips of water? Meds patient instructed to take am of surgery PONV PONV - licensed nuclear control room operator: PONV - licensed nuclear control room operator Female Yes 03/10/25 09:17 HX of Motion Sickness Yes 03/10/25 09:17 HX of N/V After Surgery Yes 03/10/25 09:17 Non-Smoker Yes 03/10/25 09:17 Duration of Surgery greater No 03/10/25 09:17 than 60 minutes Number of Risk Factors 4 03/10/25 09:17 PONV Score Severe Risk 03/10/25 09:17 Height Weight Height Weight: Anesthesia: Height Weight Height 5 ft 2 in 09/23/24 11:42 Respiratory Assessment Respiratory Assessment - licensed nuclear control room operator: Respiratory Tract Infection Hx - licensed nuclear control room operator Hx Respiratory Tract Infection No 03/10/25 09:17 STOP Sleep Apnea STOP Sleep Apnea - licensed nuclear control room operator: STOP Sleep Apnea - licensed nuclear control room operator Hx Hypertension Yes: PER PT, CONTROLLED ON 03/10/25 09:17 MEDS Hx Sleep Apnea No 03/10/25 09:17 CPAP No 09/23/24 14:45 BIPAP No 09/13/24 14:27 Do you snore loudly (louder No 03/10/25 09:17 than talking or can be heard Do you often feel tired/ No 03/10/25 09:17 fatigued/ sleepy during daytime? Has anyone observed you stop No 03/10/25 09:17 breathing during sleep? STOP Results Negative 03/10/25 09:17 QUESTION #5 FULL TEXT : Do you snore loudly (louder than talking or can be heard through closed doors)? 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 Specify any problems Hx of Preganancy in last 3 No 03/10/25 09:17 Months Nurse Filling Out Transfusion SOWMYA 03/10/25 09:17 Questions: Date: 03/10/25 03/10/25 09:17 Time: 09:20 03/10/25 09:17 Patient unable to answer at this time (ie. confused, unrespo /Reproduction History /Reproductive History - licensed nuclear control room operator: /Reproductive Hx- licensed nuclear control room operator Hx Now Gestational Age (in weeks): EDC: Hx Hx Para Hx Section SAB No 09/19/24 12:25 [facility] Medical History (Updated 03/10/25 @ 09:27 by Liliam Martines) Alcohol use Easy bruising PONV (postoperative nausea and vomiting) Leg cramps Hypertension Wears contact lenses Wears glasses Thyroid disease History of edema Non-smoker History of stress test Heart murmur History of echocardiogram Cardiology follow-up encounter Essential (primary) hypertension Hyperlipidemia Postmenopausal bleeding Home Medications ???Medication ???Instructions ???Recorded ???Last Taken ???Type levothyroxine 125 mcg tablet 100 mcg PO DAILY 03/18/15 09/23/24 History cholecalciferol (vitamin D3) 50 2,000 unit PO DAILY 04/13/1809/13 History mcg (2,000 unit) capsule (Vitamin D3) melatonin 3 mg capsule 3 mg PO HS PRN sleep 03/27/23 Unkn own History omega-3 fatty acids 1,000 mg 1,000 mg PO DAILY 03/27/23 5 History capsule metoprolol succinate 25 mg 25 mg PO (more content not included)... Normal [facility] Orthopedic Visit Reporton Orthopedic Visit Report [facility] [address] [place] [address] OFFICE VISIT Date of Service: 02/28/25 MR#: [id number] Acct: [id number] Name: ROSANNE BANERJEE Rep #: [id number] : 1960 Provider: Dr. Brian Yin so, DO Age/Sex: 64/F Location: [facility] Status: Signed Intake Vital Signs 09/23/24 11:42 Height 5 ft 2 in Intake Visit Reasons: RIGHT HAND Accompanied by: Self Allergies ramipril (From Altace) Allergy (Verified 02/28/25 10:02) Swelling ARB-Angiotensin Receptor Antagonist Adverse Reaction (Severe, Verified 02/28/25 10:02) Angioedema Medications ???Medication ???Instructions ???Recorded ???Confirmed ???Type levothyroxine 125 mcg tablet 100 mcg PO DAILY 03/18/15 02/28/25 History cholecalciferol (vitamin D3) 50 2,000 unit PO DAILY 04/13/1802/28 History mcg (2,000 unit) capsule (Vitamin D3) melatonin 3 mg capsule 3 mg PO HS PRN sleep 03/27/2302/12 History omega-3 fatty acids 1,000 mg 1,000 mg PO DAILY 03/27/23 5 History capsule Held on 09/23/24. Instructions: Resume on 09/30/24. metoprolol succinate 25 mg 25 mg PO DAILY #90 tabs 05/27/24 1 Rx tablet,extended release 24 hr amlodipine 10 mg tablet 10 mg PO QHS 09/13/24 02/28/25 His tory hydrochlorothiazide 12.5 mg tablet 12.5 mg PO DAILY 09/13/24 History turmeric 400 mg PO DAILY 09/13/24 02/28/25 History Held on 09/23/24. Instructions: Resume on 09/30/24. acetaminophen 325 mg tablet 325 mg PO ONCE PRN pain 09/18/24 1 History (Tylenol) ciprofloxacin HCl 0.3 % eye drops See Rx Instructions ophthalmic 02/28/25 Rx (eye) .COMPLEX #10 mL Have you fallen in the past year?: [...] substance use type: does not use HPI RIGHT HAND Details: This documentation accurately reflects the service provided and the decisions made by me, Dr. Brian Garcia, DO 02/28/25 08. Part of today???s visit was documented by Jamia PALAFOX, acting as scribe. ROSANNE BANERJEE is a 64 year old F here today for EMG review of the right wrist. Her symptoms are unchanged 11/01/2024 visit:63 year old F here today for s/p left wrist ORIF distal radius DOS 09/23/2024. Patient denies any pain in the left wrist today and states she is doing well. Patient continues with OT and she has been going once a week right now for range of motion and scar management. Once she is cleared she is going to start going twice a week to start with strengthening exercises. She only has to take pain medication when she feels like she over uses the wrist but states it is not very often. Patient complains of right hand numbness/tingling that she has noticed at night and in the mornings. She has been wearing a brace to sleep in for a couple of years now and it has helped. The index, middle and ring finger goes numb quite often. She is RHD. She denies any injections. She has been working on nerve glide exercises but has not noticed any relief. Plan:Obtained and reviewed left wrist x-rays today in the clinic. Reviewed imaging findings in detail today with the patient and explained that the hardware maintains good positioning and the bones are healing. Explained she can increase her weight restrictions to 7 pounds at this time for next 2 weeks then she can slowly progress to full by another 4 weeks. She should continue with range of motion exercises as well as begin strengthening of the wrist but should be smart about her weight. I do not need to see her back for the left wrist unless she has any concerns or new injuries. After evaluation of the right wrist she does have carpal tunnel symptoms and we would need an EMG study done to evaluate for carpal tunnel. She would like to wait to proceed with carpal tunnel release surgery until March recomme (more content not included)... Normal [facility] NCS and/or EMG Patienton NCS and/or EMG Patient [facility] Pulmonary Services/Neurology [address] [place] [address] MR#: [id number] Acct: [id number] Name: ROSANNE BANERJEE Rep #: [id number] : 1960 64 From: Javier Summers MD Referring Dr: Brian Garcia DO Status: REG CLI Location: N Date: 02/26/25 Sex: F C NCS and/or EMG Patient Report Ordering Doctor: Brian Garcia DATE OF SERVICE: 02/26/25 Rosanne presents with complaints of numbness and weakness in the right hand. Electrodiagnostic findings: Right median motor nerve demonstrates prolonged latency with normal amplitude and reduced conduction velocity. Normal right ulnar motor response. Normal right median and ulnar F???waves. Absent right median sensory response at the wrist. Needle EMG testing was performed the right upper limb. All muscles tested showed no evidence of denervation with normal motor unit action potentials. Electrodiagnostic impression: This is an abnormal study in the right upper limb 1. Electrodiagnostic findings suggestive of right sided median mononeuropathy. This is consistent with a moderate right carpal tunnel syndrome. Multi Select Codes Neurology Neurology Interp Codes: 66376-95 Musc test done w/n test comp (interp) and 20886-36 Nrv cndj test 7- 8 studies (interp) 02/26/25 1312 Date Javier Summers MD CC: Dr. Javier Summers MD; Dr. Augustine Pace MD; Dr. Brian Garcia DO Date Dictated: 02/26/25 1311 Date Transcribed: 02/26/251310 City Recorder: AA Signed Normal [facility] SCRN MAMM (CAD)W/ADITI BILATo n 02-24-2025 SCRN MAMM (CAD)W/ADITI BILAT [facility] Imaging Services [address] [place], [place] [address] SCRN MAMM (CAD)W/ADITI BILAT MR#: [id number] Acct: [id number] Name: ROSANNE BANERJEE Rep #: [id number] : 1960 F 64 From: Shital Saravia PCP: Dr. Augustine Pace MD Status: [facility] CLI Study: SCRN MAMM (CAD)W/ADITI BILAT Date of Exam: 02/12 08/06 Exam# [id number] Ordering Dr: Augustine Pace MD EXAM: SCRN MAMM (CAD)W/ADITI BILAT DATE: 02/24/2025 CLINICAL HISTORY: F, Age 64 y/o , SCREENING FOR BREAST CANCER TECHNIQUE: Procedure Code: BISMWCADBTOM Modality: MG Procedure: SCRN MAMM (CAD)W/ADITI BILAT COMPARISON: Prior exam(s) dated 02/23/2024 and 02/21/2023. FINDINGS: TISSUE DENSITY: There are scattered areas of fibroglandular density. Bilateral Breast Mammographic Findings: No significant masses, calcifications or other abnormalities are identified. Benign dermal calcifications, round calcifications and vascular calcifications are seen in both breast. BI/SCRN MAMM (CAD)W/ADITI BILAT IMPRESSION: Benign screening mammogram. OVERALL FINAL ASSESSMENT BI-RADS benign screening mammogram RECOMMENDATION: Routine annual follow-up in 1 Year Additional Recommendation none A letter with findings and recommendations will be mailed to the patient. Reading Location: [id number] CC: Dr. Augustine Pace MD City Recorder: Signed Normal [facility] Urgent Care Visit Reporton 0 01-04-2025 Urgent Care Visit Report [facility] [address], [address] [place] [address] OFFICE VISIT Date of Service: 01/04/25 MR#: [id number] Acct: [id number] Name: ROSANNE BANERJEE Rep #: [id number] : 1960 Provider: SUSHANT Buchanan Age/Sex: 64/F Location: [facility] Status: Signed Intake Vital Signs 09/23/24 11:42 01/04/25 08:33 Height 5 ft 2 in BP 120/62 Position Sitting Respiration 16 Pulse 48 L Temp 98.0 F Temp Source Oral Pulse Oximetry (%) 98 Oxygen Delivery Method room air Intake Visit Reasons: CONCERN FOR PINK EYE Chief Complaint: [place] eye Accompanied by: Self Allergies ramipril (From Altace) Allergy (Verified 01/04/25 08:32) Swelling ARB-Angiotensin Receptor Antagonist Adverse Reaction (Severe, Verified 01/04/25 08:32) Angioedema Medications ???Medication ???Instructions ???Recorded ???Confirmed ???Type levothyroxine 125 mcg tablet 100 mcg PO DAILY 03/18/15 01/04/25 History cholecalciferol (vitamin D3) 50 2,000 unit PO DAILY 04/13/1801/04 History mcg (2,000 unit) capsule (Vitamin D3) melatonin 3 mg capsule 3 mg PO HS PRN sleep 03/27/2312/14 History omega-3 fatty acids 1,000 mg 1,000 mg PO DAILY 03/27/23 5 History capsule Held on 09/23/24. Instructions: Resume on 09/30/24. metoprolol succinate 25 mg 25 mg PO DAILY #90 tabs 05/27/24 0 01/04/25 Rx tablet,extended release 24 hr amlodipine 10 mg tablet 10 mg PO QHS 09/13/24 01/04/25 His tory hydrochlorothiazide 12.5 mg tablet 12.5 mg PO DAILY 09/13/24 History turmeric 400 mg PO DAILY 09/13/24 01/04/25 History Held on 09/23/24. Instructions: Resume on 09/30/24. acetaminophen 325 mg tablet 325 mg PO ONCE PRN pain 09/18/24 0 01/04/25 History (Tylenol) cephalexin 500 mg capsule 1,000 mg (2 x 500 mg) PO Q8H #4 01/04/25 Rx caps ciprofloxacin HCl 0.3 % eye drops See Rx Instructions ophthalmic 01/04/25 Rx (eye) .COMPLEX #10 mL Have you fallen in the past year?: Yes Nurse's Note: Patient here for concerns for pink eye. Patient states that yesterday she took her contact out and through out the day her eye just was watering. Patient states it did it all night and she had annoying pain in her eye while trying to lay down. Patient eye is very watery. [facility] Medical History Wears contact lenses Wears glasses [...] substance use type: does not use HPI HPI Chief Complaint: [place] eye Details: ROSANNE BANERJEE, is a 64 F who presents to the office today for evaluation of watery eyes. Patient states that starting yesterday her left eye became slightly painful and began watering profusely. She took her contact out but noticed little to no relief. She notes that she had left over ofloxacin eye drops from her sports physical therapist which she used yesterday with no relief. Patient is concerned for pink eye but denies purulent discharge, edema, or crusting. Patient denies recent contact with other individuals with similar symptoms. ROS Const Constitutional: No chills or fever(s) Eyes Eyes: Positive for irritation, discharge, eye pain and Light sensitivity; No blurry vision ENT ENT: No ear or mastoid pain, nasal congestion, nasal discharge or sore throat Exam Const General: cooperative and no acute distress Eyes Conjunctivae: conjunctival abnormality left conjunctival injection diffuse (mild) and discharge other (watery) Pupils: PERRL EOM: EOM intact bilaterally Neck Lymphatic: no lymphadenopathy noted Coding Level of Care Code New Pt Off vis,new,level 3 Patient Type New History Expanded Problem Focused Exam Problem Focused Medical Decision Making Low Complexity Diagnoses Viral conjunctivitis B30.9 Assessment and Plan Assessment and Plan (1) Viral conjunctivitis: Status: Acute Plan: Likely viral etiology based (more content not included)... Normal [facility] Free T3on 12-03-2024 Free T3 [Mass/Vol] 1.9 pg/mL Low 2.18-3.98 [facility] Comment on above: Performed By: #### L 501.15063, L501.9520, L506.0400 ####[facility] [id number] [facility] [address] Free R5Vluhwge By: Augustine torres on 12-03-2024 Free T3 [Mass/Vol] 1.9 pg/mL Low 2.18-3.98 [facility] T4 Free Directon 12-03-2024 T4 FREE DIRECT 1.40 ng/dL Normal 0.76-1.46 [facility] Comment on above: Performed By: #### L 501.37717, L501.9520, L506.0400 ####[facility] [address] [place] [address] T4 freeOrdered By: Augustine torres on 12-03-2024 Free T4 [Mass/Vol] 1.40 ng/dL 0.76-1.46 [facility] TSH DL <= 0.005 mIU/L QnOrde red By: Augustine Pace on 12-03-2024 TSH Qn 2.910 uIU/mL 0.300-4.200 [facility] Thyroid Stim Hormone (TSH)on 12-03-2024 TSH 2.910 uIU/mL Normal 0.300-4.200 [facility] Comment on above: Performed By: #### L 501.31394, L501.9520, L506.0400 ####[facility] [id number] [facility] [id number] Osmolality, Serumon 11-24-19 25 OSMOLALITY,SER 359 mOsm/KG High 280-301 [facility] Comment on above: Order Comment: Order Date: 10/14/24Order Info: 2692-2 - OS Result Comment: AMENDED REPORT 11/23/24 1115 OSMOLALITY,SER previously reported as: 300 mOsm/KG Performed By: #### L 501.2240, L501.9520, L500.4050, L501.97861, L501.7400, L506.0400, L501.5500, L501.7300 ####[facility] [id number] [place], [address] OT D/C Summaryon 11-22-2024 OT D/C Summary [facility] Occupational Therapy [facility] [address] [place] [address] / REHABILITATION SERVICES DISCHARGE SUMMARY MR#: [id number] Acct: [id number] Name: ROSANNE BANERJEE Rep #: [id number] : 1960 63 From: Imelda Amador OTR/L, CHT Referring Dr.: Dr. Brian Garcia DO Status: R EG RCR Eval Date: Discharge Date: Discharge Summary D/C Summary: It has been my pleasure to treat ROSANNE BANERJEE under orders from Dr. Brian Garcia DO, for the diagnosis of left intra artic lower end radius fx for a total of 7 visit(s). Please see the following information for a summary of their discharge status. Overall Improvement % Improvement: 85 Objective Objective/Function: Pt doing well- found wts at home- gave HEP handout this day. Not getting as much wrist flexion- using hand at home and is not limiting her from much. right survey chief strength 50# left 40# right lateral pinch 10# left 8# right tripod pinch 6# left 6# did feel discomfort pt has met OT goals and can be d/c with HEP Goals Patient Goals: Regain Mobility, Improve Fine Motor Skills, Use Hand/Wrist/Arm Normally Again and Be More Independent in ADLS Goal:ROM equal to unaffected hand: Yes Goal Progress: Goal Met Goal:Hydro Generation Manager/Pinch strength at least 75% of unaffected hand: Yes Goal Progress: Progressing Goal:No pain with affected hand use: Yes Goal Progress: Goal Met Goal:Full use of affected hand in daily activities including work: Yes Goal Progress: Goal Met Goal:Decrease scar hypersensitivity: Yes Other Goal: pt will demo understanding of elevation, ice to decrease edema by end of 1st session. (goal met) Plan Plan: cont with strengthening D/C Information Discharge Comments: pt states she is doing better and able to do more- pt will cont. with HEP to improve her strength. d/c sentence: If there are questions or concerns regarding this patient's occupational therapy, please fell free to call me at [phone]. Thank you for the referral of this patient. Sincerely, JASON Linares CHT 11/22/24 1144 CC: Dr. Augustine Pace MD; Dr. Brian Garcia DO MK Signed Normal [facility] OT General Evaluationon 11-12 OT General Evaluation [facility] Occupational Therapy [facility] [address] [place] [address] [address] [place] [id number] / REHABILITATION SERVICES INITIAL EVALUATION MR#: [id number] Acct: [id number] Name: ROSANNE BANERJEE Rep #: [id number] : 1960 63 From: Imelda GMOEZ CHT Referring Dr.: Dr. Brian Garcia DO Status: R EG RCR Insurance: [facility] Eval Date: SELF PAY INSURANCE Patient's Visit Information Visit Information Visit Information: ROSANNE BANERJEE is a 63 year old F, referred to Occupational Therapy by Dr. 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 Date of Evaluation: 10/09/24 Occupational Therapist: JASON Linares CHT Subjective Subjective: This 63 year old [...] DASH-Disab of Arm,Shoulder Hand Quick DASH Score: 9.0900 Goals Goal:ROM equal to unaffected hand: Yes Goal:Hydro Generation Manager/Pinch strength at least 75% of unaffected hand: Yes Goal:No pain with affected hand use: Yes Goal:Full use of affected hand in daily activities including work: Yes Goal:Decrease scar hypersensitivity: Yes Other Goal: pt will demo understanding of elevation, ice to decrease edema by end of 1st session. (goal met) Rehabilitation General Assessment: pt arrives 2 weeks [...] to be FAXED BACK to us at [phone] for Medicare purposes. Please let me know if there are questions or concerns regarding this plan of care. Physician Signature: ___Date: 11/22/24 1144 CC: Dr. Augustine Pace MD; Dr. Brian Garcia, DO MK Signed For Medicare only, by signing this I certify the plan of care. Physicians Signature Date Normal [facility] Orthopedic Visit Reporton Orthopedic Visit Report [facility] [address] [place] [address] OFFICE VISIT Date of Service: 11/01/24 MR#: [id number] Acct: [id number] Name: ROSANNE BANERJEE Rep #: [id number] : 1960 Provider: Dr. Brian katz DO Age/Sex: 63/F Location: [facility] Status: Signed Intake Vital Signs 09/23/24 11:42 Height 5 ft 2 in Intake Visit Reasons: LEFT WRIST Chief Complaint: 6 week post-op Accompanied by: Self Is patient in pain?: No Allergies ramipril (From Altace) Allergy (Verified 11/01/24 08:56) Swelling ARB-Angiotensin Receptor Antagonist Adverse Reaction (Severe, Verified 11/01/24 08:56) Angioedema Medications ???Medication ???Instructions ???Recorded ???Confirmed ???Type levothyroxine 125 mcg tablet 100 mcg PO DAILY 03/18/15 11/01/24 History cholecalciferol (vitamin D3) 50 2,000 unit PO DAILY 04/13/1811/01 History mcg (2,000 unit) capsule (Vitamin D3) melatonin 3 mg capsule 3 mg PO HS PRN sleep 03/27/2310/14 History omega-3 fatty acids 1,000 mg 1,000 mg PO DAILY 03/27/23 5 History capsule Held on 09/23/24. Instructions: Resume on 09/30/24. metoprolol succinate 25 mg 25 mg PO DAILY #90 tabs 05/27/24 0 11/01/24 Rx tablet,extended release 24 hr amlodipine 10 mg tablet 10 mg PO QHS 09/13/24 11/01/24 His tory hydrochlorothiazide 12.5 mg tablet 12.5 mg PO DAILY 09/13/24 History turmeric 400 mg PO DAILY 09/13/24 11/01/24 History Held on 09/23/24. Instructions: Resume on 09/30/24. acetaminophen 325 mg tablet 325 mg PO ONCE PRN pain 09/18/24 0 11/01/24 History (Tylenol) cephalexin 500 mg capsule 1,000 mg (2 x 500 mg) PO Q8H #4 11/01/24 Rx caps Have you fallen in the [...] made by me, Dr. Brian Garcia, DO 11/01/24 0775. Part of today???s visit was documented by Hailey Chapin ATC, acting as scribe. ROSANNE BAENRJEE is a 63 year old F here today for s/p left wrist ORIF distal radius DOS 09/23/2024. Patient denies any pain in the left wrist today and states she is doing well. Patient continues with OT and she has been going once a week right now for range of motion and scar management. Once she is cleared she is going to start going twice a week to start with strengthening exercises. She only has to take pain medication when she feels like she over uses the wrist but states it is not very often. Patient complains of right hand numbness/tingling that she has noticed at night and in the mornings. She has been wearing a brace to sleep in for a couple of years now and it has helped. The index, middle and ring finger goes numb quite often. She is RHD. She denies any injections. She has been working on nerve glide exercises but has not noticed any relief. Ortho Exam General General: Yes no acute distress and Yes well groomed Neurologic: Yes alert and Yes oriented x3 Psychologic: Yes reasonable and appropriate Right Wrist/Hand Skin/Wound: Yes CDI, No Swelling, No Ecchymosis, Yes nail intact and Yes capillary refill normal Right Wrist: Yes ROM-Extension 0-60, ROM-Flexion 0-80, ROM-Pronation 0-80, ROM-Supination 0-90, Durken's Test and Phalen's WRIST: mild Tinel's into the middle + Phalens good abduction strength Left Wrist/Hand Skin/Wound: Yes CDI, No Swelling and No Ecchymosis WRIST: full supination full pronation 78 wrist extension 48 wrist flexion Supplemental Info 2024 x-ray left wrist: Status post ORIF distal radius with good alignment 09/23/2024 ORIF left distal radius: Dr. Garcia 09/13/2024 x-ray Left wrist: left wrist pre and postreduction x-rays intra-articular impacted dorsa (more content not included)... Normal [facility] Wrist 2 Viewson 11-01-2024 Wrist 2 Views [facility] [address] [place], [place] [id number] Wrist 2 Views MR#: [id number] Acct: [id number] Name: ROSANNE BANERJEE Rep #: [id number] : 1960 F 63 From: Irma Roth MD PCP: Dr. Augustine Pace MD Status: DEP AMB Study: Wrist 2 Views Date of Exam: 11/01/24 Exam# [id number] Ordering Dr: Brian Garcia DO EXAM: XR Left Wrist, 2 Views CLINICAL INDICATION: S/P ORIF TECHNIQUE: Frontal and lateral views of the left wrist. COMPARISON: XR Wrist dated 09/14/2024 FINDINGS: BONES/JOINTS: Comminuted fracture of the distal radius status post fixation plate and screws. Intact hardware. Satisfactory position. No dislocation. SOFT TISSUES: Soft tissue swelling. No radiopaque foreign body. RAD/Wrist 2 Views IMPRESSION: Postoperative changes as above. Reading Location: [facility] CC: Dr. Augustine Pace MD; Dr. Brian Garcia DO City Recorder: Signed [facility] Bone density reportOrdered B y: Brian Negrete on 10-31-2024 Study report Skeletal system DXA [facility] Imaging Services [address] [place] [id number] Dexa Bone Density Study MR#: [id number] Acct: [id number] Name: ROSANNE BANERJEE Rep #: [id number] : 1960 F 63 From: Guillermo Negrete MD PCP: Dr. Augustine Pace MD Status: REG CLI Study:Dexa Bone Density Study Date of Exam: 10/31/24 Exam# [id number] Ordering Dr: Jed Pace MD PROCEDURE: DEXA BONE DENSITY STUDY 10/31/2024 REASON FOR EXAM: F, age 63 y/o . Postmenopausal. TECHNIQUE: DEXA BONE DENSITY STUDY COMPARISON: February 21, 2023 FINDINGS: BMD and T-SCORES Lumbar spine: 0.967 g/cm2, T-score -0.1 Levels: L1 through L4 Change from prior: Loss of 6.4%. Left femoral neck: 0.797 g/cm2, T-score -0.5 Femoral neck comparison data not recommended for monitoring change. Left total hip: 0.979 g/cm2, T-score 0.3 Change from prior: Loss of 9.8%. Right femoral neck: 0.822 g/cm2, T-score -0.2 Femoral neck comparison data not recommended for monitoring change. Right total hip: 0.907 g/cm2, T-score -0.3 Change from prior: Loss of 4.3%. The World Health Organization has defined the following categories based on bonedensity: Normal bone density: T-score equal to or greater than -1.0 Osteopenia: T-score between -1.0 and -2.5 Osteoporosis: T-score equal to or less than -2.5 The patient does not meet the pharmacological treatment recommendations for prevention of osteoporosis. BD/Dexa Bone Density Study IMPRESSION: NORMAL T-SCORES. Recommend follow-up as clinically warranted. Reading Location: [place] [address] CC: Dr. Augustine Pace MD ~ City Recorder: Signed [facility] Dexa Bone Density Studyon Dexa Bone Density Study [facility] Imaging Services [address] [place] [address] Dexa Bone Density Study MR#: [id number] Acct: [id number] Name: ROSANNE BANERJEE Rep #: [id number] : 1960 F 63 From: Brian hernandez MD PCP: Dr. Augustine Pace MD Status: [facility] CLI Study: Dexa Bone Density Study Date of Exam: 10/31/24 Exam# [id number] Ordering Dr: Augustine Pace MD PROCEDURE: DEXA BONE DENSITY STUDY 10/31/2024 REASON FOR EXAM: F, age 63 y/o . Postmenopausal. TECHNIQUE: DEXA BONE DENSITY STUDY COMPARISON: February 21, 2023 FINDINGS: BMD and T-SCORES Lumbar spine: 0.967 g/cm2, T-score -0.1 Levels: L1 through L4 Change from prior: Loss of 6.4%. Left femoral neck: 0.797 g/cm2, T-score -0.5 Femoral neck comparison data not recommended for monitoring change. Left total hip: 0.979 g/cm2, T-score 0.3 Change from prior: Loss of 9.8%. Right femoral neck: 0.822 g/cm2, T-score -0.2 Femoral neck comparison data not recommended for monitoring change. Right total hip: 0.907 g/cm2, T-score -0.3 Change from prior: Loss of 4.3%. The World Health Organization has defined the following categories based on bone density: Normal bone density: T-score equal to or greater than -1.0 Osteopenia: T-score between -1.0 and -2.5 Osteoporosis: T-score equal to or less than -2.5 The patient does not meet the pharmacological treatment recommendations for prevention of osteoporosis. BD/Dexa Bone Density Study IMPRESSION: NORMAL T-SCORES. Recommend follow-up as clinically warranted. Reading Location: [place] [address] CC: Dr. Augustine Pace MD City Recorder: Signed [facility] Anion gap in Serum or Plasma Ordered By: Augustine Pace on 10-14-2024 Anion gap [Moles/Vol] 12 mmol/L 5-15 [facility] BUN/creatinine ratioOrdered By: Augustine Pace on 10-14-2024 Urea nitrogen/Creatinine [Mass ratio] 41.7 mg/mg High 10-20 [facility] Bilirubin, totalOrdered By: Augustine Pace on 10-14-2024 Bilirubin [Mass/Vol] 0.35 mg/dL 0.00-1.30 [facility] Calcium, Urine (Random)on Calcium Ur [place] 5.6 mg/dL Normal Not Estab. [facility] Comment on above: Order Comment: TING ALEXANDER COMMENT-MIACREOrder Date: 10/14/24Order Info: [id number] - CAURComments: 24 HOURSOrder Info: 2955-3 - NAUOrder Info: 2695-5 - [facility] Performed By: #### L 501.2240, L501.9520, L500.4050, L501.93978, L501.7400, L506.0400, L501.5500, L501.7300 ####[facility] [address] [place], [address] Carbon dioxide, total [Moles /volume] in Central venous bloodOrdered By: Augustine Pace on 10-14-2024 CO2 [Moles/Vol] 25.4 mmol/L 21.0-32.0 [facility] Chloride assayOrdered By: Jed Pace on 10-14-2024 Chloride [Moles/Vol] 97 mmol/L Low 98-108 [facility] Comprehensive Metabolic Prof ilon 10-14-2024 Albumin [Mass/Vol] 4.4 g/dL Normal 3.4-4.8 [facility] Comment on above: Order Comment: Order Date: 10/14/24Order Info: 0786-1 - CMPOrder Info: 3051-0 - Q6HPapwk Info: 3016-3 - TSHOrder Info: 30247 - T4F Performed By: #### L 501.2240, L501.9520, L500.4050, L501.83095, L501.7400, L506.0400, L501.5500, L501.7300 ####[facility] [address] [place], [address] Albumin/Globulin [Mass ratio] 1.5 {ratio} Normal 0.9-2.4 [facility] Comment on above: Order Comment: Order Date: 10/14/24Order Info: 0786-1 - CMPOrder Info: 3051-0 - Q5SZokxv Info: 3016-3 - TSHOrder Info: 3024-7 - T4F Performed By: #### L 501.2240, L501.9520, L500.4050, L501.83801, L501.7400, L506.0400, L501.5500, L501.7300 ####[facility] [address] [place], [address] ALK PHOS 100 U/L Normal 35-104 [facility] Comment on above: Order Comment: Order Date: 10/14/24Order Info: 0786-1 - CMPOrder Info: 3050-0 - O5ZLtiye Info: 3 - TSHOrder Info: 3024-7 - T4F Performed By: #### L 501.2240, L501.9520, L500.4050, L501.99748, L501.7400, L506.0400, L501.5500, L501.7300 ####[facility] [address] [place], [address] ALT [Catalytic activity/Vol] 16 U/L Normal <=34 [facility] Comment on above: Order Comment: Order Date: 10/14/24Order Info: 0786-1 - CMPOrder Info: 3050-0 - R7TVhbwa Info: 3 - TSHOrder Info: 3024-7 - T4F Performed By: #### L 501.2240, L501.9520, L500.4050, L501.31943, L501.7400, L506.0400, L501.5500, L501.7300 ####[facility] [address] [place], [place], [address] AST [Catalytic activity/Vol] 24 U/L Normal <=31 [facility] Comment on above: Order Comment: Order Date: 10/14/24Order Info: 0786-1 - CMPOrder Info: 3050-0 - W1XPmkjt Info: 3 - TSHOrder Info: 3024-7 - T4F Performed By: #### L 501.2240, L501.9520, L500.4050, L501.72366, L501.7400, L506.0400, L501.5500, L501.7300 ####[facility] [address] [place], [place], [address] Bilirubin [Mass/Vol] 0.35 mg/dL Normal 0.00-1.30 [facility] Comment on above: Order Comment: Order Date: 10/14/24Order Info: 0786-1 - CMPOrder Info: 3051-0 - K7CEvlle Info: 3 - TSHOrder Info: 3024-7 - T4F Performed By: #### L 501.2240, L501.9520, L500.4050, L501.04236, L501.7400, L506.0400, L501.5500, L501.7300 ####[facility] [address] [place], [address] BUN/CRE 41.7 RATIO High 10-20 [facility] Comment on above: Order Comment: Order Date: 10/14/24Order Info: 0786-1 - CMPOrder Info: 0 - N7LFgdlp Info: 3 - TSHOrder Info: 3024-7 - T4F Performed By: #### L 501.2240, L501.9520, L500.4050, L501.89586, L501.7400, L506.0400, L501.5500, L501.7300 ####[facility] [address] [place], [place], [address] Calcium [Mass/Vol] 9.8 mg/dL Normal 7.6-11.0 [facility] Comment on above: Order Comment: Order Date: 10/14/24Order Info: 0786-1 - CMPOrder Info: 3050-0 - L8OQtkri Info: 3 - TSHOrder Info: 3024-7 - T4F Performed By: #### L 501.2240, L501.9520, L500.4050, L501.49799, L501.7400, L506.0400, L501.5500, L501.7300 ####[facility] [address] [place], [place], [address] Chloride [Moles/Vol] 97 mmol/L Low 98-108 [facility] Comment on above: Order Comment: Order Date: 10/14/24Order Info: 0786-1 - CMPOrder Info: 0 - G1CKwkjz Info: 3 - TSHOrder Info: 3024-7 - T4F Performed By: #### L 501.2240, L501.9520, L500.4050, L501.46105, L501.7400, L506.0400, L501.5500, L501.7300 ####[facility] [address] [place], [place], [address] CO2 [Moles/Vol] 25.4 mmol/L Normal 21.0-32.0 [facility] Comment on above: Order Comment: Order Date: 10/14/24Order Info: 0786-1 - CMPOrder Info: 3051-0 - B8RZmslq Info: 3016-3 - TSHOrder Info: 3024-7 - T4F Performed By: #### L 501.2240, L501.9520, L500.4050, L501.94463, L501.7400, L506.0400, L501.5500, L501.7300 ####[facility] [address] [place], [place], [address] Creatinine [Mass/Vol] 0.67 mg/dL Low 0.70-1.20 [facility] Comment on above: Order Comment: Order Date: 10/14/24Order Info: 0786-1 - CMPOrder Info: 3051-0 - N5MQwdqs Info: 3016-3 - TSHOrder Info: 3024-7 - T4F Performed By: #### L 501.2240, L501.9520, L500.4050, L501.07207, L501.7400, L506.0400, L501.5500, L501.7300 ####[facility] [address] [place], [place], [id number] GAP 12 Normal 5-15 [facility] Comment on above: Order Comment: Order Date: 10/14/24Order Info: 0786-1 - CMPOrder Info: 3051-0 - E7JZjcpk Info: 3016-3 - TSHOrder Info: 3024-7 - T4F Performed By: #### L 501.2240, L501.9520, L500.4050, L501.38784, L501.7400, L506.0400, L501.5500, L501.7300 ####[facility] [address] [place], [address] GFR/1.73 sq M.predicted among non-blacks MDRD (S/P/Bld) [Vol rate/Area] 97 mL/min/{1.73_m2} Normal >60 [facility] Comment on above: Order Comment: Order Date: 10/14/24Order Info: 0786- - CMPOrder Info: - Q7EIouyl Info: 3015-07 - TSHOrder Info: 3023-11 - T4F Result Comment: mL/m in/1.73m2 CKD-EPI Creatinine Equation (2020) Performed By: #### L 501.2240, L501.9520, L500.4050, L501.01970, L501.7400, L506.0400, L501.5500, L501.7300 ####[facility] [address] [place], [address] Globulin (S) [Mass/Vol] 2.9 g/dL Normal 2.2-4.2 [facility] Comment on above: Order Comment: Order Date: 10/14/24Order Info: 0786- - CMPOrder Info: - L2WKzejz Info: 3015-07 - TSHOrder Info: 3023-11 - T4F Performed By: #### L 501.2240, L501.9520, L500.4050, L501.24553, L501.7400, L506.0400, L501.5500, L501.7300 ####[facility] [address] [facility] [place], [address] Glucose [Mass/Vol] 118 mg/dL High 70-99 [facility] Comment on above: Order Comment: Order Date: 10/14/24Order Info: 0786- - CMPOrder Info: - B8IIfyjq Info: 3015-07 - TSHOrder Info: 3024-7 - T4F Performed By: #### L 501.2240, L501.9520, L500.4050, L501.25636, L501.7400, L506.0400, L501.5500, L501.7300 ####[facility] [address] [place], [address] Potassium [Moles/Vol] 5.1 mmol/L Normal 3.3-5.1 [facility] Comment on above: Order Comment: Order Date: 10/14/24Order Info: 0786-1 - CMPOrder Info: 3050-0 - J0SXjqcw Info: 30163 - TSHOrder Info: 7 - T4F Performed By: #### L 501.2240, L501.9520, L500.4050, L501.86003, L501.7400, L506.0400, L501.5500, L501.7300 ####[facility] [address] [place], [address] Sodium [Moles/Vol] 134 mmol/L Normal 133-145 [facility] Comment on above: Order Comment: Order Date: 10/14/24Order Info: 0786-1 - CMPOrder Info: 3050-0 - W7YQjiha Info: 30163 - TSHOrder Info: 3024-7 - T4F Performed By: #### L 501.2240, L501.9520, L500.4050, L501.35055, L501.7400, L506.0400, L501.5500, L501.7300 ####[facility] [address] [place], [address] T PROT 7.2 g/dL Normal 5.9-8.4 [facility] Comment on above: Order Comment: Order Date: 10/14/24Order Info: 0786-1 - CMPOrder Info: 3050-0 - A3ACxqig Info: 3016-3 - TSHOrder Info: 3024-7 - T4F Performed By: #### L 501.2240, L501.9520, L500.4050, L501.10451, L501.7400, L506.0400, L501.5500, L501.7300 ####[facility] [address] [place], [place], [address] Urea nitrogen [Mass/Vol] 28 mg/dL High 4-19 [facility] Comment on above: Order Comment: Order Date: 10/14/24Order Info: 0786-1 - CMPOrder Info: 3051-0 - X5VBzjlg Info: 3016-3 - TSHOrder Info: 30247 - T4F Performed By: #### L 501.2240, L501.9520, L500.4050, L501.30674, L501.7400, L506.0400, L501.5500, L501.7300 ####[facility] [address] [place], [place], [address](044) Free T3on 10-14-2024 Free T3 [Mass/Vol] 4.0 pg/mL High 2.18-3.98 [facility] Comment on above: Order Comment: Order Date: 10/14/24Order Info: 0786-1 - CMPOrder Info: 3051-0 - R0KXxqtc Info: 3016-3 - TSHOrder Info: 3024-7 - T4F Performed By: #### L 501.2240, L501.9520, L500.4050, L501.16300, L501.7400, L506.0400, L501.5500, L501.7300 ####[facility] [address] [place], [place], [address] Free P3Rpyiium By: Augustine torres on 10-14-2024 Free T3 [Mass/Vol] 4.0 pg/mL High 2.18-3.98 [facility] Glomerular filtration rate ( GFR) estimation/1.73 sq m using serum, plasma, or whole bOrdered By: Augustine Pace on 10-14-2024 GFR/1.73 sq M.predicted among non-blacks MDRD (S/P/Bld) [Vol rate/Area] 97 mL/min/{1.73_m2} >60 [facility] Comment on above: mL/min/1.73m2 CKD-EP I Creatinine Equation (2020) Laboratory - Chemistry and C hemistry - challengeOrdered By: Augustine Pace on 10-14-2024 AST [Catalytic activity/Vol] 24 U/L <32 [facility] Microalb:Creat Ratio,Random URon 10-14-2024 Creatinine [Mass/Vol] 24.30 mg/dL Low 28.00-217.0 0 [facility] Comment on above: Order Comment: PER I NTERFACE COMMENT-MIACREOrder Date: 10/14/24Order Info: 45504-6 - CAURComments: 24 HOURSOrder Info: 2955-3 - NAUOrder Info: 2695-5 - [facility] Performed By: #### L 502.0250 ####[facility] [address] [place], [place], [address] MALB:CREAT UNABLE TO CALCULATE Normal [facility] Comment on above: Order Comment: PER I NTERFACE COMMENT-MIACREOrder Date: 10/14/24Order Info: 29678-4 - CAURComments: 24 HOURSOrder Info: 2955-3 - NAUOrder Info: 2695-5 - [facility] Performed By: #### L 502.0250 ####[facility] [address] [place], [address] MICROALBUMIN,UR < 12.0 Normal NO RANGE EST. [facility] Comment on above: Order Comment: PER I NTERFACE COMMENT-MIACREOrder Date: 10/14/24Order Info: 94037-3 - CAURComments: 24 HOURSOrder Info: 2955-3 - NAUOrder Info: 2695-5 - [facility] Performed By: #### L 502.0250 ####[facility] [address] [place], [address] Microalbumin/creat ratio urO rdered By: Augustine Pace on 10-14-2024 Urine microalbumin/creatin ine ratio measurement UNABLE TO CALCULATE mg/g CRE [facility] Osmolality urOrdered By: Hailee Pace on 10-14-2024 Osmolality (U) [Osmolality] 359 mOsm/KG >50 [facility] Comment on above: Normal Urine Referen ce Ranges Random: 50 - 1200 mOsm/kg H20 depending on fluid intake Random: >850 mOsm/kg after 12 hour fluid restriction 24 hour: ~300 - 900 mOsm/kg H2O Osmolality, Urineon 10-15-19 25 OSMOLALITY,UR 359 mOsm/KG Normal [facility] Comment on above: Order Comment: PER I NTERFACE COMMENT-MIACREOrder Date: 10/14/24Order Info: 82589-4 - CAURComments: 24 HOURSOrder Info: 2955-3 - NAUOrder Info: 2695-5 - [facility] Result Comment: Normal Urine Reference Ranges Random: 50 - 1200 mOsm/kg H20 depending on fluid intake Random: >850 mOsm/kg after 12 hour fluid restriction 24 hour: 300 - 900 mOsm/kg H2O Performed By: #### L 501.2240, L501.9520, L500.4050, L501.47136, L501.7400, L506.0400, L501.5500, L501.7300 ####[facility] [address] [place], [address] Potassium measurement (mass/ volume)Ordered By: Augustine Pace on 10-14-2024 Potassium (Unsp spec) [Mass/Vol] 5.1 mmol/L 3.3-5.1 [facility] Random urine creatinine jena urement (mass/volume)Ordered By: Augustine Pace on 10-14-2024 Creatinine Unsp time (U) [Mass/Vol] 24.30 mg/dL Low 28.00-217.0 0 [facility] Serum creatinine measurement (mass/volume)Ordered By: Augustine Pace on 10-14-2024 Creatinine [Mass/Vol] 0.67 mg/dL Low 0.70-1.20 [facility] Serum globulin measurementOr dered By: Augustine Pace on 10-14-2024 Globulin (S) [Mass/Vol] 2.9 g/dL 2.2-4.2 [facility] Serum glucose measurement (m ass/volume)Ordered By: Augustine Pace on 10-14-2024 Glucose [Mass/Vol] 118 mg/dL High 70-99 [facility] Serum or plasma alanine lucas otransferase (ALT) measurementOrdered By: Augustine Pace on 10-14-2024 ALT [Catalytic activity/Vol] 16 U/L <35 [facility] Serum or plasma albumin jena urement (mass/volume)Ordered By: Augustine Pace on 10-14-2024 Albumin [Mass/Vol] 4.4 g/dL 3.4-4.8 [facility] Serum or plasma albumin/glob ulin mass ratioOrdered By: Augustine Pace on 10-14-2024 Albumin/Globulin [Mass ratio] 1.5 {ratio} 0.9-2.4 [facility] Serum or plasma alkaline bobby sphatase measurementOrdered By: Augustine Pace on 10-14-2024 ALP [Catalytic activity/Vol] 100 U/L 35-104 [facility] Serum or plasma calcium jena urement (mass/volume)Ordered By: Augustine Pace on 10-14-2024 Calcium [Mass/Vol] 9.8 mg/dL 7.6-11.0 [facility] Serum or plasma urea nitroge n measurement (mass/volume)Ordered By: Augustine Pace on 10-14-2024 Urea nitrogen [Mass/Vol] 28 mg/dL High 4-19 [facility] Sodium levelOrdered By: Augustine Pace on 10-14-2024 Sodium [Moles/Vol] 134 mmol/L 133-145 [facility] T4 Free Directon 10-14-2024 T4 FREE DIRECT 1.20 ng/dL Normal 0.76-1.46 [facility] Comment on above: Order Comment: Order Date: 10/14/24Order Info: 0786-1 - CMPOrder Info: 3051-0 - Q0MUlngu Info: 3016-3 - TSHOrder Info: 3024-7 - T4F Performed By: #### L 501.2240, L501.9520, L500.4050, L501.45927, L501.7400, L506.0400, L501.5500, L501.7300 ####[facility] [address] [place], [address] T4 freeOrdered By: Augustine torres on 10-14-2024 Free T4 [Mass/Vol] 1.20 ng/dL 0.76-1.46 [facility] TSH DL <= 0.005 mIU/L QnOrde red By: Augustine Pace on 10-14-2024 TSH Qn 0.158 uIU/mL Low 0.300-4.200 [facility] Thyroid Stim Hormone (TSH)on 10-14-2024 TSH 0.158 uIU/mL Low 0.300-4.200 [facility] Comment on above: Order Comment: Order Date: 10/14/24Order Info: 0786-1 - CMPOrder Info: 3051-0 - N5RQzqqq Info: 3016-3 - TSHOrder Info: 3024-7 - T4F Performed By: #### L 501.2240, L501.9520, L500.4050, L501.20996, L501.7400, L506.0400, L501.5500, L501.7300 ####[facility] [address] [place], [place], [address] Total proteinOrdered By: Hailee Pace on 10-14-2024 Protein [Mass/Vol] 7.2 g/dL 5.9-8.4 [facility] Urine Sodiumon 10-14-2024 Sodium (U) [Moles/Vol] 46 mmol/L Normal Not Establ. [facility] Comment on above: Order Comment: PER I NTERYUE COMMENT-MIACREOrder Date: 10/14/24Order Info: 63437-7 - CAURComments: 24 HOURSOrder Info: 2955-3 - NAUOrder Info: 2695-5 - [facility] Performed By: #### L 501.2240, L501.9520, L500.4050, L501.31558, L501.7400, L506.0400, L501.5500, L501.7300 ####[facility] [address] [place], [address] Urine albumin measurement [facility] detection limit of 20 mg/L or less (mass/volume)Ordered By: Augustine Pace on 10-14-2024 Albumin DL <= 20 mg/L (U) [Mass/Vol] < 12.0 mg/L NO RANGE EST. [facility] Urine sodium measurement (mo les/volume)Ordered By: Augustine Pace on 10-14-2024 Sodium (U) [Moles/Vol] 46 mmol/L Not Establ. [facility] OT General Evaluationon 09-13 OT General Evaluation [facility] Occupational Therapy [facility] [address] [place] [address] / REHABILITATION SERVICES INITIAL EVALUATION MR#: [id number] Acct: [id number] Name: ROSANNE BANERJEE Rep #: [id number] : 1960 63 From: Imelda GOMEZ CHT Referring Dr.: Dr. Brian Garcia DO Status: R EG RCR [facility] Eval Date: SELF PAY INSURANCE Patient's Visit Information Visit Information Visit Information: ROSANNE BANERJEE is a 63 year old F, referred to Occupational Therapy by Dr. 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 Please let me know if there are questions or concerns regarding this plan of care. Physician Signature: ___Date: 10/09/24 1348 CC: Dr. Augustine Pace MD; Dr. Brian Garcia DO MK Signed For Medicare only, by signing this I certify the plan of care. Physicians Signature Date Normal [facility] Orthopedic Visit Reporton Orthopedic Visit Report [facility] [address] [place] [address] OFFICE VISIT Date of Service: 10/09/24 MR#: [id number] Acct: [id number] Name: ROSANNE BANERJEE Rep #: [id number] : 1960 Provider: Dr. Brian katz DO Age/Sex: 63/F Location: [facility] Status: Signed Intake Vital Signs 09/18/24 08:32 [...] History of foot surgery S/P hysterectomy ( 2017) Family History Mother Hypertension CVA (cerebral vascular [...] motion exercises (more content not included)... Normal [facility] Orthopedic Visit Reporton Orthopedic Visit Report [facility] [address] [place] [address] OFFICE VISIT Date of Service: 09/30/24 MR#: [id number] Acct: [id number] Name: ROSANNE BANERJEE Rep #: [id number] : 1960 Provider: Dr. Brian katz DO Age/Sex: 63/F Location: [facility] Status: Signed Intake Vital Signs 09/18/24 08:32 [...] Brian Garcia, DO 09/30/24 0758. Part of today???s [...] of motio (more content not included)... Normal [facility] Discharge Instructionon 09-12 Discharge Instruction [facility] Medical Records Department [address] [place] [address] Instructions for Home/Discharge Instructions 09/23/24 1448 MR#: [id number] Acct: [id number] Name: ROSANNE BANERJEE Rep #: [id number] : 1960 63 From: Brian Garcia DO PCP: Dr. Augustine Pace MD Status:REG [facility] Discharge Instructions Diet Discharge Diet: No restrictions [...] Care Provider: Augustine Pace Instructions Print Language: Greenlandic Discharge Orders/Prescriptions Prescriptions: New cephalexin 500 mg [...] Order can be placed): Home, Self Care 09/23/241452 Brian Garcia DO CC: Dr. Augustine Pace MD Signed [facility] MR/POSTOP.ANE 09-23-2024 MR/POSTOP.[facility] Medical Records Department [address] [place] [address] Anesthesia Postop Eval I 09/23/241449 MR#: [id number] Acct: [id number] Name: ROSANNE BANERJEE Rep #: [id number] : 1960 63 From: Kuldeep Mckenna CRNA PCP: Dr. 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 Augustine Pace MD Status:DEP [facility] Y Race: C Location: [facility] Anesthesia Postop Eval I Sum Postop Eval Completion status Anesthesia document: Postop Eval 1 completed: Yes Anesthesia Postop Eval I Summary Anesthesia Postop Eval I Summary: Anesthesia Postop Eval I: Assessment Summary Airway patent Yes 09/23/24 14:51 [employer].JBOR Spontaneous unlabored Yes 09/23/24 14:51 [employer].JBOR respirations Mental status Awake,Calm 09/23/24 14:51 [employer].JBOR nausea No 09/23/24 14:51 [employer].JBOR Vomiting No 09/23/24 14:51 [employer].JBOR Anesthesia Postop Eval I: Fluid Summary Crystalloid volume administer 800 09/23/24 14:51 [employer].JBOR (ml) Colloids volume administered ( ml) Blood Product volume administered (ml) Total IV fluid infused 800 09/23/24 14:51 [employer].JBOR Anesthesia Postop Eval I: Summary Notes Anesthesia Complication No 09/23/24 14:51 [employer].JBOR Anesthesia Complication Comment: Post-operative progress note Anesthesia: [...] a 0/10. Complications Anesthesia Complication: No 09/23/24 183 Date Ramsey Melgoza MD Cosigner Signature: Date CC: Signed [facility] Operative Reporton 5 Operative Report [facility] Medical Records Department [address] [place] [address] Operative Report 09/23/24 1444 MR#: [id number] Acct: [id number] Name: ROSANNE BANERJEE Rep #: [id number] : 1960 63 From: Brian Garcia DO PCP: Dr. 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 The fracture was then reduced with the use of a Buchanan and ulnar deviation and wrist flexion. This [...] web roll volar paster splint and an Felix wrap. There was no complications intraoperatively and the patient was brought back to the PACU in stable condition where she received an axillary block. All counts were correct. Surgical Findings: Comminuted int (more content not included)... Normal [facility] Wrist 2 Viewson 09-23-2024 Wrist 2 Views [facility] Imaging Services [address] [place] [address] Wrist 2 Views MR#: [id number] Acct: [id number] Name: ROSANNE BANERJEE Rep #: [id number] : 1960 F 63 From: Debra Vasquez MD PCP: Dr. Augustine Pace MD Status: DEP [facility] Study: Wrist 2 Views Date of Exam: 09/23/24 Exam# [id number] Ordering Dr: Brian Garcia DO EXAM: DX [...] Views IMPRESSION: Fluoroscopy as above. Reading Location: [facility] CC: Dr. Augustine Pace MD; Dr. Brian Garcia DO City Recorder: Signed Normal [facility] Electrocardiogram reportOrde red By: Jad Teixeira on 09-20-2024 EKG study [facility] Cardiovascular Services [address] [place] [address] 12 Lead EKG 09/19/24 1344 MR#: [id number] Acct: [id number] Name: ROSANNE BANERJEE Rep #:[id number] : 1960 63 From: Jad jones MD Attending Dr: Dr. Brian Garcia DO Status: PRE [facility] Ordering Dr: Ramsey Melgoza MD Date: 09/19/24 Location: [facility] Sex: F C Admitted: Test Reason : PREOP Blood Pressure : */* mmHG Vent. Rate : 53 BPM Atrial Rate : 53 BPM P-R Int : 192 ms QRS Dur : 100 ms QT Int : 424 ms P-R-T Axes : 68 61 66 degrees QTcB Int : 397 ms Sinus bradycardia Otherwise normal ECG Confirmed by Jad Teixeira ([id number]), development editor LAW KRAUSE ([id number]) on 09/20/2024 12:20:35 PM Referred By: Brian Garcia Confirmed By: Jad Teixeira 09/20/241219 Date _ Jad Teixeira MD CC: Dr. Ramsey Melgoza MD; Dr. Augustine Pace MD; Dr. Brian Garcia DO ~ Signed [facility] Other Phone: 12 Lead EKGon 09-19-2024 12 Lead EKG [facility] Cardiovascular Services [address] [place] [address] 12 Lead EKG 09/19/24 1344 MR#: [id number] Acct: [id number] Name: ROSANNE BANERJEE Rep #: [id number] : 1960 63 From: Jad Teixeira MD Attending Dr: Dr. Brian Garcia DO Status: ND E SDC Ordering Dr: Ramsey Melgoza MD Date: 09/19/24 Location: [facility] Sex: F C Admitted: Test Reason : PREOP Blood Pressure : */* mmHG Vent. Rate : 53 BPM Atrial Rate : 53 BPM P-R Int : 192 ms QRS Dur : 100 ms QT Int : 424 ms P-R-T Axes : 68 61 66 degrees QTcB Int : 397 ms Sinus bradycardia Otherwise normal ECG Confirmed by Jad Teixeira ([id number]), development editor LAW KRAUSE ([id number]) on 09/20/2024 12:20:35 PM Referred By: Brian Garcia Confirmed By: Jad Teixeira 09/20/241219 Date Jad Teixeira MD CC: Dr. Ramsey Melgoza MD; Dr. Augustine Pace MD; Dr. Brian Garcia DO Signed Normal [facility] Anion gap in Serum or Plasma Ordered By: Ramsey Melgoza on 09-19-2024 Anion gap [Moles/Vol] 13 mmol/L - [facility] BUN/creatinine ratioOrdered By: Ramsey Melgoza on 09-19-2024 Urea nitrogen/Creatinine [Mass ratio] 44.8 mg/mg High - [facility] Basic Metabolic Profile (BMP )on 09-19-2024 BUN/CRE 44.8 RATIO High 03-03 [facility] Comment on above: Performed By: #### L 500.2500, L501.9520 #### [facility] Laboratory [address] [place], [address] Calcium [Mass/Vol] 9.6 mg/dL Normal 7.6-11.0 [facility] Comment on above: Performed By: #### L 500.2500, L501.9520 #### [facility] [address] [place], [address] Chloride [Moles/Vol] 96 mmol/L Low 98-108 [facility] Comment on above: Performed By: #### L 500.2500, L501.9520 #### [facility] [address] [place], [address] CO2 [Moles/Vol] 23.6 mmol/L Normal 21.0-32.0 [facility] Comment on above: Performed By: #### L 500.2500, L501.9520 #### [facility] [address] [place], [address] Creatinine [Mass/Vol] 0.65 mg/dL Low 0.70-1.20 [facility] Comment on above: Performed By: #### L 500.2500, L501.9520 #### [facility] [address] [place], [address] GAP 13 Normal - [facility] Comment on above: Performed By: #### L 500.2500, L501.9520 #### [facility] [address] [place], [address] GFR/1.73 sq M.predicted among non-blacks MDRD (S/P/Bld) [Vol rate/Area] 98 mL/min/{1.73_m2} Normal >60 [facility] Comment on above: Result Comment: mL/m in/1.73m2 CKD-EPI Creatinine Equation (2020) Performed By: #### L 500.2500, L501.9520 #### [facility] [address] [place], [address] Glucose [Mass/Vol] 96 mg/dL Normal 70-99 [facility] Comment on above: Performed By: #### L 500.2500, L501.9520 #### [facility] [address] [place], [address] Potassium [Moles/Vol] 4.1 mmol/L Normal 3.3-5.1 [facility] Comment on above: Performed By: #### L 500.2500, L501.9520 #### [facility] [address] [place], [address] Sodium [Moles/Vol] 132 mmol/L Low 133-145 [facility] Comment on above: Performed By: #### L 500.2500, L501.9520 #### [facility] [address] [place], [address] Urea nitrogen [Mass/Vol] 29 mg/dL High 4-19 [facility] Comment on above: Performed By: #### L 500.2500, L501.9520 #### [facility] [address] [place], [address] Carbon dioxide, total [Moles /volume] in Central venous bloodOrdered By: Ramsey Melgoza on 09-19-2024 CO2 [Moles/Vol] 23.6 mmol/L 21.0-32.0 [facility] Chloride assayOrdered By: Bebe on 09-19-2024 Chloride [Moles/Vol] 96 mmol/L Low 98-108 [facility] Glomerular filtration rate ( GFR) estimation/1.73 sq m using serum, plasma, or whole bOrdered By: Ramsey Melgoza on 09-19-2024 GFR/1.73 sq M.predicted among non-blacks MDRD (S/P/Bld) [Vol rate/Area] 98 mL/min/{1.73_m2} >60 [facility] Comment on above: mL/min/1.73m2 CKD-EP I Creatinine Equation (2020) MR/PATBessy 09-19-2024 MR/PAT.EZIO [facility] Medical Records Department [address] [facility] [place] [address] PAT - Anesthesia 09/19/24 1652 MR#: [id number] Acct: [id number] Name: ROSANNE BANERJEE Rep #: [id number] : 1960 63 From: Ramsey Melgoza MD PCP: Dr. 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 Hx Hospitalization No 09/19/24 12:25 Any Problems [...] take am of surgery PONV PONV - licensed nuclear control room operator: PONV - licensed nuclear control room operator Female Yes 09/19/24 12:25 HX of Motion [...] 09/18/24 08:32 Respiratory Assessment Respiratory Assessment - licensed nuclear control room operator: Respiratory Tract Infection Hx - licensed nuclear control room operator Hx Respiratory Tract Infection No 09/19/24 12:25 STOP Sleep Apnea STOP Sleep Apnea - licensed nuclear control room operator: STOP Sleep Apnea - licensed nuclear control room operator Hx Hypertension Yes: CONTROLLED WITH MED 09/19/24 [...] Tobacco Use History Tobacco Use History - licensed nuclear control room operator: Tobacco Use History - licensed nuclear control room operator Tobacco Use Smoking Status Never smoker 09/19/24 12:25 Hx Tobacco Use No 09/19/24 12:25 Years Smoking Packs Smoked per Day Smoking Cessation Date was within the last 15 years Hx Smoking Cessation Date Hx Smoking Cessation Counseling Hematologic Medial History Hematologic Hx - licensed nuclear control room operator: 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 Specify any problems Hx of Preganancy in last 3 N/A 09/19/24 12:25 Months Nurse Filling Out Transfusion NBUCHER 09/19/24 12:25 Questions: Date: 09/19/24 09/19/24 12:25 Time: 12:09/19/24 12:25 Patient unable to answer at this time (ie. confused, unrespo /Reproduction History /Reproductive History - licensed nuclear control room operator: /Reproductive Hx- licensed nuclear control room operator Hx Now No 09/19/24 12:25 Gestational Age (in weeks): EDC: Hx Hx Para Hx Section SAB No 09/19/24 12:25 [facility] Medical History (Updated 09/19/24 @ 12:33 by [...] (vitamin D3) 50 2,000 unit PO DAILY 04/13/1809/13 History mcg (2,000 unit) capsule (Vitamin D3) melatonin 3 mg capsule 3 mg PO HS PRN sleep 03/27/23 Unkn own History omega-3 fatty acids 1,000 mg 1,000 mg PO DAILY 03/27/23 5 History capsule metoprolol succinate 25 mg 25 mg PO DAILY #90 tabs 05/27/24 0 09/13/24 Rx (more content not included)... Normal [facility] Potassium measurement (mass/ volume)Ordered By: Ramsey Melgoza on 09-19-2024 Potassium (Unsp spec) [Mass/Vol] 4.1 mmol/L 3.3-5.1 [facility] Serum creatinine measurement (mass/volume)Ordered By: Ramsey Melgoza on 09-19-2024 Creatinine [Mass/Vol] 0.65 mg/dL Low 0.70-1.20 [facility] Serum glucose measurement (m ass/volume)Ordered By: Ramsey Melgoza on 09-19-2024 Glucose [Mass/Vol] 96 mg/dL 70-99 [facility] Serum or plasma calcium jena urement (mass/volume)Ordered By: Ramsey Melgoza on 09-19-2024 Calcium [Mass/Vol] 9.6 mg/dL 7.6-11.0 [facility] Serum or plasma urea nitroge n measurement (mass/volume)Ordered By: Ramsey Melgoza on 09-19-2024 Urea nitrogen [Mass/Vol] 29 mg/dL High 4-19 [facility] Sodium levelOrdered By: Jeffery Melgoza on 09-19-2024 Sodium [Moles/Vol] 132 mmol/L Low 133-145 [facility] TSH DL <= 0.005 mIU/L QnOrde red By: Ramsey Melgoza on 09-19-2024 TSH Qn 0.214 uIU/mL Low 0.300-4.200 [facility] Thyroid Stim Hormone (TSH)on 09-19-2024 TSH 0.214 uIU/mL Low 0.300-4.200 [facility] Comment on above: Performed By: #### L 500.2500, L501.9520 #### [facility] [address] [place], [place], [address] Orthopedic Visit Reporton Orthopedic Visit Report [facility] [place] [facility] [address] [place] [address] [address] [place] [address] OFFICE VISIT Date of Service: 09/18/24 MR#: [id number] Acct: [id number] Name: ROSANNE BANERJEE Rep #: [id number] : 1960 Provider: Dr. Brian katz DO Age/Sex: 63/F Location: [facility] Status: Signed Intake Vital Signs 09/13/24 13:06 [...] 4 Diagnos (more content not included)... Normal [facility] Emergency Department Summary on 09-13-2024 Emergency Department Summary [facility] Medical Records Department [address] [place] [address] Emergency Department Summary 09/13/24 MR#: [id number] Acct: [id number] Name: ROSANNE BANERJEE Rep #: [id number] : 1960 63 From: Ronn Mcgregor MD PCP: Dr. Rose Mary Ocasio MD Status:REG ER Location: ED HPI History of Present Illness HPI Narrative: 63-year-old female tzyxs-dqam-meyezqqi. Was walking her dog slipped on wet [...] Prior similar symptoms: No Recent Illness/Hospitalization: No PFSH PFSH Medical History Essential (primary) hypertension Hyperlipidemia [...] rhythm no (more content not included)... Normal [facility] Wrist min 3 Viewson 09-14-19 Wrist min 3 Views [facility] Imaging Services [address] [place] [address] Wrist min 3 Views MR#: [id number] Acct: [id number] Name: ROSANNE BANERJEE Rep #: [id number] : 1960 F 63 From: Ailin Marina nd, MD PCP: Dr. Rose Mary Ocasio MD Status: REG ER Study: Wrist min 3 Views Date of Exam: 09/13/24 Exam# [id number] Ordering Dr: Ronn Mcgregor MD PROCEDURE: WRIST [...] IMPRESSION: Postreduction imaging as described. Reading Location: [facility] CC: Dr. Rose Mary Ocasio MD; Dr. Ronn Mcgregor MD City Recorder: Signed Normal [facility] Wrist min 3 Views [facility] Imaging Services [address] [facility] [facility] [place] [address] Wrist min 3 Views MR#: [id number] Acct: [id number] Name: ROSANNE BANERJEE Rep #: [id number] : 1960 F 63 From: Ailin Marina nd, MD PCP: Dr. Rose Mary Ocasio MD Status: REG ER Study: Wrist min 3 Views Date of Exam: 09/13/24 Exam# [id number] Ordering Dr: Ronn Mcgregor MD PROCEDURE: WRIST [...] imaging demonstrates left wrist casting. Reading Location: [id number] CC: Dr. Rose Mary Ocasio MD; Dr. Ronn Mcgregor MD City Recorder: Signed Normal [facility] AST(SGOT)on 05-10-2024 AST [Catalytic activity/Vol] 21 U/L Normal 15-37 [facility] Comment on above: Order Comment: Order Date: 02/28/24Order Info: [id number] - BMPOrder Date: 02/26/24Order Info: [id number] - LIPIDOrder Info: 1919-12 - ASTOrder Info: 1741-10 - ALTOrder Info: 3025-06 - U6Qwngb Info: 3015-3 - TSH Performed By: #### L 501.9520, L501.9985, L500.2500, L500.4100, L501.9310, L501.4405, L501.4100 ####[facility] [address], [place], [address] Alanine Aminotransferas (SGP T)on 05-10-2024 ALT [Catalytic activity/Vol] 20 U/L Normal 13-56 [facility] Comment on above: Order Comment: Order Date: 02/28/24Order Info: 0667-1 - BMPOrder Date: 02/26/24Order Info: [id number] - LIPIDOrder Info: 1919-12 - ASTOrder Info: 1741-10 - ALTOrder Info: 2 - Z2Xxqqy Info: 3 - TSH Performed By: #### L 501.9520, L501.9985, L500.2500, L500.4100, L501.9310, L501.4405, L501.4100 ####[facility] [address] [place], [address] Basic Metabolic Profile (BMP )on 05-10-2024 BUN/CRE 30.4 RATIO High 10-20 [facility] Comment on above: Order Comment: Order Date: 02/28/24 Order Info: 0667- - BMP Order Date: 02/26/24 Order Info: 20004-8 - LIPID Order Info: 1919-12 - AST Order Info: 1741-10 ALT Order Info: 2 - T4 Order Info: 3 - TSH Performed By: #### L 501.9520, L501.9985, L500.2500, L500.4100, L501.9310, L501.4405, L501.4100 #### [facility] [address] [place], [address] CA,Total 9.1 mg/dL Normal 8.5-10.1 [facility] Comment on above: Order Comment: Order Date: 02/28/24 Order Info: 0667- - BMP Order Date: 02/26/24 Order Info: 07838-0 - LIPID Order Info: 1919-12 - AST Order Info: 1741-10 ALT Order Info: 2 - T4 Order Info: 3 - TSH Performed By: #### L 501.9520, L501.9985, L500.2500, L500.4100, L501.9310, L501.4405, L501.4100 #### [facility] [address] [place], [address] Chloride [Moles/Vol] 102 mmol/L Normal 98-107 [facility] Comment on above: Order Comment: Order Date: 02/28/24 Order Info: 0667- - BMP Order Date: 02/26/24 Order Info: [id number] - LIPID Order Info: 1919-12 - AST Order Info: 1742-6 - ALT Order Info: 2 - T4 Order Info: 3 - TSH Performed By: #### L 501.9520, L501.9985, L500.2500, L500.4100, L501.9310, L501.4405, L501.4100 #### [facility] [address] [place], [address] CO2 [Moles/Vol] 30.0 mmol/L Normal 21.0-32.0 [facility] Comment on above: Order Comment: Order Date: 02/28/24 Order Info: 666-05 - BMP Order Date: 02/26/24 Order Info: - LIPID Order Info: 1919-12 AST Order Info: 1741-10 Order Info: 2 - T4 Order Info: 3015-07 - TSH Performed By: #### L 501.9520, L501.9985, L500.2500, L500.4100, L501.9310, L501.4405, L501.4100 #### [facility] [address] [place], [place], [id number] Creatinine [Mass/Vol] 0.63 mg/dL Normal 0.55-1.02 [facility] Comment on above: Order Comment: Order Date: 02/28/24 Order Info: 666-05 - BMP Order Date: 02/26/24 Order Info: 01308-6 - LIPID Order Info: 1919-12 AST Order Info: 1741-10 Order Info: 2 - T4 Order Info: 3015-07 - TSH Result Comment: The validity of the calculated GFR GFRAA in patients over 70 years has not been determined. Clinical correlation is essential. Performed By: #### L 501.9520, L501.9985, L500.2500, L500.4100, L501.9310, L501.4405, L501.4100 #### [facility] [address] [place], [address] EST GFR - AA 123 mL/min Normal >60 [facility] Comment on above: Order Comment: Order Date: 02/28/24 Order Info: 666-05 - BMP Order Date: 02/26/24 Order Info: 84844-6 - LIPID Order Info: 1919-12 AST Order Info: 1741-10 ALT Order Info: 3025-06 - T4 Order Info: 3015-07 - TSH Result Comment: Afri can Brazilian GFR Calc Performed By: #### L 501.9520, L501.9985, L500.2500, L500.4100, L501.9310, L501.4405, L501.4100 #### [facility] [address] [place], [place], [id number] GAP 2 [facility] 15 [facility] Comment on above: Order Comment: Order Date: 02/28/24 Order Info: 666-05 - BMP Order Date: 02/26/24 Order Info: - LIPID Order Info: 1919-12 AST Order Info: 1741-10 Order Info: 3025-06 T4 Order Info: 3015-07 - TSH Performed By: #### L 501.9520, L501.9985, L500.2500, L500.4100, L501.9310, L501.4405, L501.4100 #### [facility] [address] [place], [place], [address] GFR/1.73 sq M.predicted among non-blacks MDRD (S/P/Bld) [Vol rate/Area] 101 mL/min/{1.73_m2} Normal >60 [facility] Comment on above: Order Comment: Order Date: 02/28/24 Order Info: 666-05 - BMP Order Date: 02/26/24 Order Info: 17291-4 - LIPID Order Info: 1919-12 AST Order Info: 1741-10 ALT Order Info: 3025-06 - T4 Order Info: 3 - TSH Result Comment: Non- GFR Calc Performed By: #### L 501.9520, L501.9985, L500.2500, L500.4100, L501.9310, L501.4405, L501.4100 #### [facility] [address] [place], [address] Glucose [Mass/Vol] 107 mg/dL High 74-106 [facility] Comment on above: Order Comment: Order Date: 02/28/24 Order Info: 666-05 - BMP Order Date: 02/26/24 Order Info: 84761-9 - LIPID Order Info: 1919-12 AST Order Info: 1741-10 ALT Order Info: 3025-06 - T4 Order Info: 3 - TSH Result Comment: Fast ing Glucose result from 100 to 125 mg/dL suggests IMPAIRED HOMEOSTASIS per A.D.A. criteria. Performed By: #### L 501.9520, L501.9985, L500.2500, L500.4100, L501.9310, L501.4405, L501.4100 #### [facility] [address] [place], [address] Potassium [Moles/Vol] 3.9 mmol/L Normal 3.5-5.1 [facility] Comment on above: Order Comment: Order Date: 02/28/24 Order Info: 666-05 - BMP Order Date: 02/26/24 Order Info: 67891-1 - LIPID Order Info: 1919-12 AST Order Info: 1741-10 Order Info: 3025-06 - T4 Order Info: 3015-07 - TSH Performed By: #### L 501.9520, L501.9985, L500.2500, L500.4100, L501.9310, L501.4405, L501.4100 #### [facility] [address] [place], [address] Sodium [Moles/Vol] 134 mmol/L Low 136-145 [facility] Comment on above: Order Comment: Order Date: 02/28/24 Order Info: 666-05 - BMP Order Date: 02/26/24 Order Info: 80507-2 - LIPID Order Info: 1919-12 AST Order Info: 1742-6 - ALT Order Info: 3026-2 - T4 Order Info: 3015-3 - TSH Performed By: #### L 501.9520, L501.9985, L500.2500, L500.4100, L501.9310, L501.4405, L501.4100 #### [facility] [address] [place], [address] Urea nitrogen [Mass/Vol] 19 mg/dL High 7-18 [facility] Comment on above: Order Comment: Order Date: 02/28/24 Order Info: 0667-1 - BMP Order Date: 02/26/24 Order Info: 06161-1 - LIPID Order Info: 1919-12 - AST Order Info: 1741-10 - ALT Order Info: 3025-2 - T4 Order Info: 3 - TSH Performed By: #### L 501.9520, L501.9985, L500.2500, L500.4100, L501.9310, L501.4405, L501.4100 #### [facility] [address] [place], [address] Hemoglobin A1con 05-10-2024 HbA1c (Bld) [Mass fraction] 5.3 % Normal 3.8-5.6 [facility] Comment on above: Order Comment: Order Date: 02/26/24Order Info: 4548-4 - A1C Result Comment: Norm al < 5.7 % Prediabetic 5.7 - 6.4 % Diabetic >or= 6.5 % Please note range changes. Performed By: #### L 501.9520, L501.9985, L500.2500, L500.4100, L501.9310, L501.4405, L501.4100 ####[facility] [address] [place], [address] Lipid Profileon 05-10-2024 Cholesterol [Mass/Vol] 188 mg/dL Normal 200 [facility] Comment on above: Order Comment: Order Date: 02/28/24 Order Info: 0667-1 - BMP Order Date: 02/26/24 Order Info: 29644-4 - LIPID Order Info: 1919-12 - AST Order Info: 1741-10 ALT Order Info: 3025-06 - T4 Order Info: 3015-07 - TSH Result Comment: <200 mg/dL Desirable 200-240 mg/dL Borderline >240 mg/dL High Risk Performed By: #### L 501.9520, L501.9985, L500.2500, L500.4100, L501.9310, L501.4405, L501.4100 #### [facility] [address] [place], [place], [phone] Cholesterol in HDL [Mass/Vol] 65 mg/dL Normal [facility] Comment on above: Order Comment: Order Date: 02/28/24 Order Info: 06 - BMP Order Date: 02/26/24 Order Info: 05901-8 - LIPID Order Info: 1919-12 AST Order Info: 1741-10 Order Info: 3025-06 T4 Order Info: 3015-07 - TSH Result Comment: The drugs N-Acetylcysteine and Metamizole may falsely depress this assay. Reference Range HDL <40 mg/dL Low HDL Cholesterol HDL >or= 60 mg/dL High HDL Cholesterol Performed By: #### L 501.9520, L501.9985, L500.2500, L500.4100, L501.9310, L501.4405, L501.4100 #### [facility] [address] [place], [address] Cholesterol in LDL [Mass/Vol] 110 mg/dL Normal 0-130 [facility] Comment on above: Order Comment: Order Date: 02/28/24 Order Info: 06- - BMP Order Date: 02/26/24 Order Info: 94543-0 - LIPID Order Info: 1919-12 AST Order Info: 1741-10 ALT Order Info: 3025-06 - T4 Order Info: 3015-07 - TSH Performed By: #### L 501.9520, L501.9985, L500.2500, L500.4100, L501.9310, L501.4405, L501.4100 #### [facility] [address] [place], [address] Cholesterol in VLDL [Mass/Vol] 13 mg/dL Normal 5-40 [facility] Comment on above: Order Comment: Order Date: 02/28/24 Order Info: 0667-1 - BMP Order Date: 02/26/24 Order Info: 58602-6 - LIPID Order Info: 1919-12 - AST Order Info: 1741-10 ALT Order Info: 3025-06 - T4 Order Info: 3 - TSH Performed By: #### L 501.9520, L501.9985, L500.2500, L500.4100, L501.9310, L501.4405, L501.4100 #### [facility] [address] [place], [address] Triglyceride [Mass/Vol] 64 mg/dL Normal [facility] Comment on above: Order Comment: Order Date: 02/28/24 Order Info: 06 - BMP Order Date: 02/26/24 Order Info: 31178-6 - LIPID Order Info: 1919-12 AST Order [...] L501.9985, L500.2500, L500.4100, L501.9310, L501.4405, L501.4100 #### [facility] [address] [place], [address] Protein+Creatinine Ratio,Uri neon 05-10-2024 PROT:CRE RATIO 187 mg/g CRE Normal 0-200 [facility] Comment on above: Performed By: #### L 501.0900 ####[facility] [address] [place], [address] PROTEIN,UR.RAN. < 6.0 Normal <11.9 [facility] Comment on above: Performed By: #### L 501.0900 ####[facility] [address] [place], [address] UR CREAT 27.30 mg/dL Normal NO RANGE EST. [facility] Comment on above: Performed By: #### L 501.0900 ####[facility] [address] [place], [address] T4 Total, Thyroxinon 024 T4 [Mass/Vol] 8.5 ug/dL Normal 4.8-13.9 [facility] Comment on above: Order Comment: Order Date: 02/28/24Order Info: 0667-1 - BMPOrder Date: 02/26/24Order Info: 62520-9 - LIPIDOrder Info: 1919-12 - ASTOrder Info: 1741-10 - ALTOrder Info: 3025-2 - X2Uzdgd Info: 3016-3 - TSH Performed By: #### L 501.9520, L501.9985, L500.2500, L500.4100, L501.9310, L501.4405, L501.4100 ####[facility] [address] [place], [address] Thyroid Stim Hormone (TSH)on 05-10-2024 TSH 0.145 uIU/mL Low 0.358-3.740 [facility] Comment on above: Order Comment: Order Date: 02/28/24Order Info: 0667-1 - BMPOrder Date: 02/26/24Order Info: 86821-1 - LIPIDOrder Info: 1919-12 - ASTOrder Info: 1741-10 - ALTOrder Info: 3026-2 - D3Fvdzb Info: 3016-3 - TSH Performed By: #### L 501.9520, L501.9985, L500.2500, L500.4100, L501.9310, L501.4405, L501.4100 ####[facility] [address] [place], [address] Cardiology Visit Reporton Cardiology Visit Report [facility] [address] [place] [address] OFFICE VISIT Date of Service: 04/08/24 MR#: [id number] Acct: [id number] Name: ROSANNE BANERJEE Rep #: [id number] : 1960 Provider: ZAINAB downs Age/Sex: 63/F Location: [facility] Status: Signed HPI HPI History of Present [...] 99 Intake Visit Reasons: 1 Y FU Rivet Maker Required: No Is patient in pain?: No [...] Endo Endo (more content not included)... Normal [facility] Echo Completeon 04-03-2024 Echo Complete [facility] [address] [place] [address] Echo Complete 04/03/24 0900 MR#: [id number] Acct: [id number] Name: ROSANNE BANERJEE Rep #: [id number] : 1960 63 From: Yahir Tesfaye MD Attending Dr: Dr. Yahir Tesfaye MD Status: [facility] Ordering Dr: Yahir Tesfaye MD Date: 04/03/24 Location: [facility] Sex: F C Admitted: Reason For Study: [...] Ocasio M.D. Performed By: Migue Shelton RCS 04/03/241541 Date Yahir Tesfaye MD CC: Dr. Rose Mary Ocasio MD; Dr. Yahir Tesfaye MD Date Dictated: 04/03/24 0900 Date Transcribed: 04/03/241541 City Recorder: Signed Normal [facility] Basophil percentageOrdered B y: Rose Mary Ocasio on 12-26-2022 Chloride [Moles/Vol] 102 mmol/L 98-107 [facility] Cholesterol [Mass/Vol] 192 mg/dL <200 [facility] Comment on above: <200 mg/dL Desirable 200-240 mg/dL Borderline >240 mg/dL High Risk Glucose [Mass/Vol] 97 mg/dL 74-106 [facility] Potassium [Moles/Vol] 4.0 mmol/L 3.5-5.1 [facility] Sodium [Moles/Vol] 136 mmol/L 136-145 [facility] Triglyceride [Mass/Vol] 59 mg/dL <199 [facility] Comment on above: The drugs N-Acetylcy steine and Metamizole may falsely depress this assay.Serum Triglycerides Reference Interval Normal <150 mg/dL Borderline high 150 - 199 mg/dL High 200 - 499 mg/dL Very High > or = 500 mg/dL Laboratory - Chemistry and C hemistry - challengeOrdered By: Rose Mary Ocasio on 12-26-2022 ALT [Catalytic activity/Vol] 24 U/L 13-56 [facility] CO2 [Moles/Vol] 29.0 mmol/L 21.0-32.0 [facility] T4 [Mass/Vol] 10.9 ug/dL 4.8-13.9 [facility] Urea nitrogen/Creatinine [Mass ratio] 23.5 mg/mg 10-20 [facility] No Panel InformationOrdered By: Rose Mary Ocasio on 12-26-2022 Estimated GFR (MDRD) Amer 104 mL/min >60 [facility] Comment on above: GFR Calc Estimated GFR (MDRD) Non-Af Amer 86 mL/min >60 [facility] Comment on above: Non- GFR Calc Thyroid Stimulating Hormone (TSH) 0.32 uIU/mL 0.358-3.74 [facility] Serum or plasma calcium jena urement (mass/volume)Ordered By: Rose Mary Ocasio on 12-26-2022 Calcium [Mass/Vol] 9.1 mg/dL 8.5-10.1 [facility] Serum or plasma cholesterol in HDL measurement (mass/volume)Ordered By: Rose Mary Ocasio on 12-26-2022 Cholesterol in HDL [Mass/Vol] 73 mg/dL >40 [facility] Comment on above: The drugs N-Acetylcy steine and Metamizole may falsely depress this assay. Reference Range HDL <40 mg/dL Low HDL Cholesterol HDL >or= 60 mg/dL High HDL Cholesterol Serum or plasma cholesterol in VLDL measurement (mass/volume)Ordered By: Rose Mary Ocasio on 12-26-2022 Cholesterol in VLDL [Mass/Vol] 12 mg/dL 5-40 [facility] Serum or plasma creatinine m easurement (mass/volume)Ordered By: Rose Mary Ocasio on 12-26-2022 Creatinine [Mass/Vol] 0.72 mg/dL 0.55-1.02 [facility] Comment on above: The validity of the calculated GFR & GFRAA in patients over 70 years has not been determined. Clinical correlation is essential. Serum or plasma low density lipoprotein (LDL) cholesterol measurement (mass/volume)Ordered By: Rose Mary Ocasio on 12-26-2022 Cholesterol in LDL [Mass/Vol] 107 mg/dL 0-130 [facility] Serum or plasma urea nitroge n measurement (mass/volume)Ordered By: Rose Mary Ocasio on 12-26-2022 Urea nitrogen [Mass/Vol] 17 mg/dL 7-18 [facility] Thin prep Papanicolaou smear with manual screeningOrdered By: Rose Mary Ocasio on 12-26-2022 Thin prep Papanicolaou smear with manual screening 19 U/L 15-37 [facility] Thin prep Papanicolaou smear with manual screening 5 5-15 [facility] Whole blood hemoglobin A1c/t otal hemoglobin ratio (mass fraction)Ordered By: Rose Mary Ocasio on 12-26-2022 HbA1c (Bld) [Mass fraction] 5.5 % 3.8-5.6 [facility] Comment on above: Normal < 5.7 % Predi abetic 5.7 - 6.4 % Diabetic >or= 6.5 % Please note range changes. CNOVon 12-23-2022 CNOV Office Visit (ORMDNA ) ROSANNE BANERJEE ([id number]) 1960 F Date Time Provider Department 12/23/22 [...] knee joint Informed Consent Consent Obtained: Verbal Emblem Protocol A moment to CARE was completed. [...] Gaby Goode PA-C Referring Provider: DESTINY RANDALL [[id number]] Allergies As of Date: 12/23/2022 Noted Allergy Reaction ALTACE (RAMIPRIL) 06/16/2014 7 - Swelling Date Reviewed: 12/23/2022 Reviewed by: Gaby Goode PA-C - Fully Assessed Reason for Visit: Established Patient [175] Injections [199] Primary Visit Diagnosis:Primary osteoarthritis of right knee [M17.11] Order(s):Large Joint Arthro/Inj: R knee joint [CZE671] Order #: [id number] [] sodium hyaluronate 2.5 mL injection (SUPARTZ [...] capsule by mouth once daily. - omega 4-ogc-jri-fish oil 1,000 mg (250 mg-750 mg)/5 mL [...] for Encounter Date Provider Department Center 12/23/2022 [id number]-SSCIZBAQIANA GOODE*RUDY [facility] Encounter Status:Closed by GABY GOODE on 12/23/22 [facility] CNOVon 12-16-2022 CNOV Office Visit (RUDY ) ROSANNE BANERJEE ([id number]) 1960 F Date Time Provider Department 12/16/22 [...] knee joint Informed Consent Consent Obtained: Verbal Emblem Protocol A moment to CARE was completed. [...] Gaby Goode PA-C Referring Provider: DESTINY RANDALL [[id number]] Allergies As of Date: 12/16/2022 Noted Allergy Reaction ALTFELIX (RAMIPRIL) 06/16/2014 7 - Swelling Date Reviewed: 12/16/2022 Reviewed by: Gaby Goode PA-C - Fully Assessed Reason for Visit: Established Patient [175] Injections [199] Knee Pain [132] Primary Visit Diagnosis:Primary osteoarthritis of right knee [M17.11] Order(s):Large Joint Arthro/Inj: R knee joint [SZJ831] Order #: [id number] [] sodium hyaluronate 2.5 mL injection (SUPARTZ [...] capsule by mouth once daily. - omega 7-axi-xkr-fish oil 1,000 mg (250 mg-750 mg)/5 mL [...] for Encounter Date Provider Department Center 12/16/2022 [id number]-QNPJMZXQIANA GOODE*RUDY [facility] Encounter Status:Closed by GABY GOODE on 12/16/22 [facility] CNOVon 12-09-2022 CNOV Office Visit (RUDY ) ROSANNE BANERJEE ([id number]) 1960 F Date Time Provider Department 12/09/22 9:45 AM DESTINY RANDALL During your visit today, we recorded the following information about you: Destiny Randall DO 12/11/2022 8:48 AM Addendum Large Joint Arthro/Inj: R knee joint Informed Consent Consent Obtained: Verbal Emblem Protocol A moment to CARE was completed. [...] 1 capsule by mouth once daily. omega 2-gvg-nmr-fish oil 1,000 mg (250 mg-750 mg)/5 mL [...] for this visit. Physical Exam Vitals: [facility] 07/02/2014 Psych: Pleasant, good affect and mood [...] Exam Tende (more content not included)... Normal [facility] CNOVon 04-29-2022 CNOV Office Visit (ORMDNA ) ROSANNE BANERJEE ([id number]) 1960 F Date Time Provider Department 04/29/22 [...] knee joint Informed Consent Consent Obtained: Verbal Emblem Protocol A moment to CARE was completed. [...] Gaby Valadez PA-C Referring Provider: DESTINY RANDALL [[id number]] Allergies As of Date: 04/29/2022 Noted Allergy Reaction ALTACE (RAMIPRIL) 06/16/2014 7 - Swelling Date Reviewed: 04/29/2022 Reviewed by: Gaby Valadez PA-C - Fully Assessed Reason for Visit: Established Patient [175] Injections [199] Primary Visit Diagnosis:Primary osteoarthritis of right knee [M17.11] Order(s):Large Joint Arthro/Inj: R knee joint [[id number]] Order #: [id number] [] sodium hyaluronate 2.5 mL injection (SUPARTZ [...] capsule by mouth once daily. - omega 9-ysu-jsn-fish oil 1,000 mg (250 mg-750 mg)/5 mL [...] Encounter Status:Closed by GABY VALADEZ on 04/29/22 [facility] CNOVon 04-22-2022 CNOV Office Visit (ORNA ) ROSANNE BANERJEE ([id number]) 1960 F Date Time Provider Department 04/22/22 [...] 1 capsule by mouth once daily. omega 4-usd-otb-fish oil 1,000 mg (250 mg-750 mg)/5 mL [...] knee joint Informed Consent Consent Obtained: Verbal Emblem Protocol A moment to CARE was completed. SIGN IN Personnel directly involved with the procedure wore the appropriate PPE. Special Equipment: Yes Patient/Surrogate Stated/Verified: Date of , Relevant allergies, Intended procedure and Patient name (more content not included)... Normal [facility] CNOVon 04-15-2022 CNOV Office Visit (ORNA ) ROSANNE BANERJEE ([id number]) 1960 F Date Time Provider Department 04/15/22 11:00 AM GABY VALADEZ During your visit today, we recorded the following information about you: Weight Height 123.8 kg 1.575 m Gaby Valadez PA-C 04/15/2022 11:25 AM Signed Ms. Rosanne Roche Gerhardsendy presents today for right knee supartz injection #1/5. Today she rates her pain a 2 on a scale of 0 to 10. Large Joint Arthro/Inj: R knee joint Informed Consent Consent Obtained: Verbal Emblem Protocol A moment to CARE was completed. [...] Gaby Valadez PA-C Referring Provider: DESTINY RANDALL [[id number]] Allergies As of Date: 04/15/2022 Noted Allergy Reaction ALTACE (RAMIPRIL) 06/16/2014 7 - Swelling Date Reviewed: 04/15/2022 Reviewed by: Gaby Valadez PA-C - Fully Assessed Reason for Visit: Established Patient [175] Knee Pain [132] Injections [199] Primary Visit Diagnosis:Primary osteoarthritis of right knee [M17.11] Order(s):Large Joint Arthro/Inj: R knee joint [AVO601] Order #: [id number] [] sodium hyaluronate 2.5 mL injection (SUPARTZ [...] capsule by mouth once daily. - omega 9-gph-tas-fish oil 1,000 mg (250 mg-750 mg)/5 mL [...] Encounter Status:Closed by GABY VALADEZ on 04/15/22 [facility] Paula 03-24-2022 RICKN Telephone (ORMDNA) ROSANNE BANERJEE ([id number]) 1960 F Date Time Provider Department 03/24/22 [...] As of Date: 03/24/2022 Noted Allergy Reaction DELIA (RAMIPRIL) 06/16/2014 7 - Swelling Date Reviewed: 02/24/2022 Reviewed by: Destiny Randall, - Fully Assessed Reason for Visit: Appointment [...] capsule by mouth once daily. - omega 2-oyt-hnu-fish oil 1,000 mg (250 mg-750 mg)/5 mL [...] Status:Closed by ELIGIO MUNIZ on 03/24/22 [facility] Basophil percentageon 2021 Chloride [Moles/Vol] 100 mmol/L 98-107 [facility] Work Phone: Cholesterol [Mass/Vol] 190 mg/dL <200 [facility] Work Phone: Comment on above: <200 mg/dL Desirable 200-240 mg/dL Borderline >240 mg/dL High Risk Glucose [Mass/Vol] 90 mg/dL 74-106 [facility] Work Phone: Potassium [Moles/Vol] 4.0 mmol/L 3.5-5.1 [facility] Work Phone: Sodium [Moles/Vol] 134 mmol/L 136-145 [facility] Work Phone: Triglyceride [Mass/Vol] 53 mg/dL <199 [facility] Work Phone: Comment on above: The drugs N-Acetylcy steine and Metamizole may falsely depress this assay.Serum Triglycerides Reference Interval Normal <150 mg/dL Borderline high 150 - 199 mg/dL High 200 - 499 mg/dL Very High > or = 500 mg/dL Laboratory - Chemistry and C hemistry - challengeon 03-02-2022 ALT [Catalytic activity/Vol] 30 U/L 13-56 [facility] Work Phone: CO2 [Moles/Vol] 27.0 mmol/L 21.0-32.0 [facility] Work Phone: T4 [Mass/Vol] 10.1 ug/dL 4.8-13.9 [facility] Work Phone: Urea nitrogen/Creatinine [Mass ratio] 29.8 mg/mg 10-20 [facility] Work Phone: No Panel Informationon 03-02 Estimated GFR (MDRD) Amer 108 mL/min >60 [facility] Work Phone: Comment on above: GFR Calc Estimated GFR (MDRD) Non-Af Amer 89 mL/min >60 [facility] Work Phone: Comment on above: Non- GFR Calc Thyroid Stimulating Hormone (TSH) 0.20 uIU/mL 0.358-3.74 [facility] Work Phone: Urine Microalbumin/Creatin ine Ratio 5.9 mg/g CRE <30 [facility] Work Phone: Serum or plasma calcium jena urement (mass/volume)on 03-02-2022 Calcium [Mass/Vol] 9.2 mg/dL 8.5-10.1 [facility] Work Phone: Serum or plasma cholesterol in HDL measurement (mass/volume)on 03-02-2022 Cholesterol in HDL [Mass/Vol] 75 mg/dL >40 [facility] Work Phone: Comment on above: The drugs N-Acetylcy steine and Metamizole may falsely depress this assay. Reference Range HDL <40 mg/dL Low HDL Cholesterol HDL >or= 60 mg/dL High HDL Cholesterol Serum or plasma cholesterol in VLDL measurement (mass/volume)on 03-02-2022 Cholesterol in VLDL [Mass/Vol] 11 mg/dL 5-40 [facility] Work Phone: Serum or plasma creatinine m easurement (mass/volume)on 03-02-2022 Creatinine [Mass/Vol] 0.70 mg/dL 0.55-1.02 [facility] Work Phone: Comment on above: The validity of the calculated GFR & GFRAA in patients over 70 years has not been determined. Clinical correlation is essential. Serum or plasma low density lipoprotein (LDL) cholesterol measurement (mass/volume)on 03-02-2022 Cholesterol in LDL [Mass/Vol] 104 mg/dL 0-130 [facility] Work Phone: Serum or plasma urea nitroge n measurement (mass/volume)on 03-02-2022 Urea nitrogen [Mass/Vol] 21 mg/dL 7-18 [facility] Work Phone: Thin prep Papanicolaou smear with manual screeningon 03-02-2022 Thin prep Papanicolaou smear with manual screening 22 U/L 15-37 [facility] Work Phone: Thin prep Papanicolaou smear with manual screening 7 5-15 [facility] Work Phone: Thin prep Papanicolaou smear with manual screening 7.9 mg/L NO RANGE EST. [facility] Work Phone: Urine creatinine measurement (mass/volume)on 03-02-2022 Creatinine (U) [Mass/Vol] 134.00 mg/dL NO RANGE EST. [facility] Work Phone: CNOVon 02-24-2022 CNOV Office Visit (ORTHWS ) ROSANNE BANERJEE ([id number]) 1960 F Date Time Provider Department 02/24/22 [...] tingling, fever, chills or other constitutional symptoms. [employer] approved, is leaving in March Is there [...] 1 capsule by mouth once daily. omega 0-xwb-xdv-fish oil 1,000 mg (250 mg-750 mg)/5 mL [...] for this visit. Physical Exam Vitals: [facility] 07/02/2014 Psych: Pleasant, good affect and mood [...] normal left (more content not included)... Normal [facility] CNPNon 02-02-2022 CNPN Telephone (ORMDNA) ROSANNE BANERJEE ([id number]) 1960 F Date Time Provider Department 02/02/22 DESTINY RANDALL During your visit today, we recorded the following information about you: Musa Yoon [facility] 02/02/2022 2:07 PM Signed Fax came approving Rt knee supartz. Scanned to chart. Please contact the patient [...] capsule by mouth once daily. - omega 2-ues-eur-fish oil 1,000 mg (250 mg-750 mg)/5 mL [...] Encounter Status:Closed by MUSA DACOSTA on 11/11/22 [facility] Josue 01-06-2022 CNOV Office Visit (RUDY ) ROSANNE BANERJEE ([id number]) 1960 F Date Time Provider Department 01/06/22 10:45 AM DESTINY RANDALL During your visit today, we recorded the following information about you: Destiny Randall DO 01/27/2022 1:38 PM Addendum Additional Injections: R Distal hamstring tendon for Knee Tendinopathy Informed Consent Consent Obtained: Verbal Emblem Protocol A moment to CARE was completed. [...] 1 capsule by mouth once daily. omega 5-dmt-vuv-fish oil 1,000 mg (250 mg-750 mg)/5 mL [...] for this visit. Physical Exam Vitals: [facility] 07/02/2014 Psych: Pleasant, good affect and mood General Appearance: Well appearing, alert, in no acute distress, well-hydrated, well nourished.. Skin: Skin color, texture, turgor normal, no suspicious rashes or le (more content not included)... Normal [facility] ANES POSTPROC EVALon 022 ANES POSTPROC EVAL HNO ID: [id number] Author: Rafal Cooley MD Service: Anesthesiology Author Type: Physician Type: Anesthesia Postprocedure Evaluation Filed: 07/27/2021 2:59 PM Note Text: POST ANESTHESIA EVALUATION NOTE : 1960 Procedure Summary Date: 07/27/21 Room / Location: MD OR02 / MD OR Anesthesia Start: 1210 Anesthesia Stop: 1352 Procedure: ARTHROSCOPY, KNEE MENISCUS REPAIR MEDIAL OR [...] July 27, 2021 TIME: 2:59 PM CSN: [id number] [facility] ANES PRE-OPon 07-27-2021 ANES PRE-OP HNO ID: [id number] Author: Rafal Cooley MD Service: Anesthesiology Author Type: Physician Type: Anesthesia Preprocedure Evaluation Filed: 07/27/2021 11:56 AM Note Text: ANESTHESIOLOGY DAY OF SURGERY NOTE : 1960 Procedure Information Date/Time: 07/27/21 1307 Procedure: ARTHROSCOPY, KNEE MENISCUS REPAIR MEDIAL OR LATERAL (Right Knee) Location: [facility] / MD OR Surgeons: Destiny Randall, DO Estimated body mass index is 49.95 [...] July 27, 2021 TIME: 11:56 AM CSN: [id number] [facility] OPERATIVE NOon 07-27-2021 OPERATIVE NO HNO ID: [id number] Author: Destiny Randall DO Service: Orthopaedic Surgery Author Type: Physician Type: Operative Report Filed: 07/27/2021 1:45 PM Note Text: OPERATIVE/PROCEDURE REPORT LOG ID: [id number] SURGERY/PROCEDURE DATE: 07/27/2021 INCISION/PROCEDURE START TIME: 12:44 PM INCISION CLOSE/PROCEDURE END TIME: SURGEON(S)/PROCEDURALIST(S) AND SMASH FIXER(S): Surgeon(s) and Role: * Destiny Randall DO - Primary Nurse Practitioner: Evelyne Messina APRN.[employer] SURGERY/PROCEDURE(S): Right knee medial meniscus root repair, [...] and brac (more content not included)... Normal [facility] XR Finger - left AP and Late ral and obliqueon 10-26-2020 IMPRESSION: No acute bony finding. City Recorder: MANNIE Transcribe Date/Time: Oct 26 2020 12:16P Dictated by : IRMA YUAN MD This examination was interpreted and the report reviewed and electronically signed by: IRMA YUAN MD on Oct 26 2020 12:19PM [facility] DIVISION OF RADIOLOGY * * *Final Report* [...] which appears chronic. DIVISION OF RADIOLOGY Provider, [facility] Wendy [facility] - 10/26/2020 * * *Final Report* * [...] chronic. IMPRESSION IMPRESSION: No acute bony finding. City Recorder: PSCB Transcribe Date/Time: Oct 26 2020 12:16P Dictated by : IRMA YUAN MD This examination was interpreted and the report reviewed and electronically signed by: IRMA YUAN MD on Oct 26 2020 12:19PM EST [facility] Radiology Study observation (narrative) [facility] XR Finger - left AP and Late ral and obliqueOrdered By: Ccf Provider on 10-26-2020 [facility] Final Surgical Pathology Rep [facility] 02-20-2020 Final Surgical Pathology Report . Pathology Reports Accession: Collected Date/Time: Received Date/Time: Pathologist: [id number] 02/18/2020 14:41 EDT 02/19/2020 14:41 EDT MD [...] Electronically Signed by Pathology Report verified by [facility] Electronically signed by JANES SHEN MD Sign out Date: 02/20/2020 12:52 Performing Lab: [facility], [address] [place] [address] ([place]) Comment on above: Performed By: #### S PFR #### [place] [id number] No Panel Information [facility] Vital Signs Date Time Vital Sign Value Performing Clinician Faci lity 01-04-2025 08:33-0400 Body temperature 98 [degF] Dr. Rose Mary Ocasio MD Work Phone: [facility] 01-04-2025 08:33-0400 Diastolic blood pressure 62 mm[Hg] Dr. Rose Mary Ocasio MD Work Phone: [facility] 01-04-2025 08:33-0400 Heart rate 48 /min Dr. Rose Mary Ocasio MD Work Phone: [facility] 01-04-2025 08:33-0400 Respiratory rate 16 /min Dr. Rose Mary Ocasio MD Work Phone: 4(284)241-579264 [address] 01-04-2025 08:33-0400 SaO2% (BldA) [Mass fraction] 98 % Dr. Rose Mary Ocasio MD Work Phone: 2(653)370-994264 [address] 01-04-2025 08:33-0400 Systolic blood pressure 120 mm[Hg] Dr. Rose Mary Ocasio MD Work Phone: [facility] 09-23-2024 16:34-0400 Body temperature 98.9 [degF] Dr. Rose Mary Ocasio MD Work Phone: 7(134)413-710964 [address] 09-23-2024 16:34-0400 Diastolic blood pressure 53 mm[Hg] Dr. Rose Mary Ocasio MD Work Phone: 3(971)187-560298 [place] [address] 09-23-2024 16:34-0400 Heart rate 72 /min Dr. Rose Mary Ocasio MD Work Phone: [facility] 09-23-2024 16:34-0400 Respiratory rate 16 /min Dr. Rose Mary Ocasio MD Work Phone: [facility] 09-23-2024 16:34-0400 SaO2% (BldA) [Mass fraction] 93 % Dr. Rose Mary Ocasio MD Work Phone: [facility] 09-23-2024 16:34-0400 Systolic blood pressure 126 mm[Hg] Dr. Rose Mary Ocasio MD Work Phone: 6(686)356-282598 [place] [address] 09-23-2024 11:42-0400 Body height 157.[address] Rose Mary Ocasio MD Work Phone: 9(584)973-086998 [place] [address] 09-23-2024 11:42-0400 Body mass index (BMI) [Ratio] 38.7 kg/m2 Dr. Rose Mary Ocasio MD Work Phone: 6(227)469-491082 [place] [address] 09-23-2024 11:42-0400 Body weight 96.[address] Rose Mary Ocasio MD Work Phone: 9(930)480-931682 [place] [address] 09-18-2024 08:32-0400 Body mass index (BMI) [Ratio] 38.9 kg/m2 Dr. Rose Mary Ocasio MD Work Phone: 8(248)649-411582 [place] [address] 09-18-2024 08:32-0400 Body weight 96.[address] Rose Mary Ocasio MD Work Phone: 3(545)960-643282 [place] [address] 09-13-2024 15:00-0400 Diastolic blood pressure 67 mm[Hg] Dr. Rose Mary Ocasio MD Work Phone: 0(851)711-295782 [place] [address] 09-13-2024 15:00-0400 Heart rate 87 /min Dr. Rose Mary Ocasio MD Work Phone: 1(515)824-081182 [place] [address] 09-13-2024 15:00-0400 Respiratory rate 18 /min Dr. Rose Mary Ocasio MD Work Phone: 9(320)826-386882 [place] [address] 09-13-2024 15:00-0400 SaO2% (BldA) [Mass fraction] 99 % Dr. Rose Mary Ocasio MD Work Phone: 8(833)742-596382 [place] [address] 09-13-2024 15:00-0400 Systolic blood pressure 168 mm[Hg] Dr. Rose Mary Ocasio MD Work Phone: 4(103)639-826282 [place] [address] 09-13-2024 13:06-0400 Body mass index (BMI) [Ratio] 39 kg/m2 Dr. Rose Mary Ocasio MD Work Phone: 0(298)773-220682 [place] [address] 09-13-2024 13:06-0400 Body temperature 97.9 [degF] Dr. Rose Mary Ocasio MD Work Phone: [facility] 09-13-2024 13:06-0400 Body weight 96.[address] Rose Mary Ocasio MD Work Phone: [facility] 02-21-2023 09:29-0400 Body height 157.[address] Rose Mary Ocasio Work Phone: [facility] 04-15-2022 11:11-0500 Body height 157.5 cm Gaby [employer] Work Phone: [facility] 04-15-2022 [id number] Body weight 123.83 kg Gaby [employer] PA[employer] Work Phone: [facility] Encounters Encounter Date Encounter Type Care Provider Facility Start: 03-18-2025 ambulatory Augustine Pace Facility:[facility] Start: 03-18-2025 End: 03-18-2025 ambulatory Augustine Pace Facility:[facility] Start: 02-28-2025 End: 02-28-[address] Brian Garcia DO -[facility] Work Phone: Start: 02-28-2025 End: 02-28-[address] Augustine Pace MD Work Phone: [facility] Start: 02-26-2025 ambulatory Augustine Pace Facility:[facility] Start: 02-26-2025 Non-patient / Non-visit Dr. Javier villalpando MD -[facility]- Start: 02-26-[address] Brian Garcia DO -Pulmonary Services/Neurology Work Phone: Start: 02-26-2025 End: 02-26-2025 ambulatory Augustine Pace Facility:[facility] Start: 02-24-2025 End: 02-24-[address] Augustine Pace MD -Outpatient Breast Imaging Work Phone: Start: 02-24-2025 End: 02-24-2025 ambulatory Augustine Pace Facility:[facility] Start: 01-04-2025 End: 01-04-2025 Patient encounter procedure Mac Ramirez PA -[facility] Work Phone: Start: 01-04-2025 End: 01-04-[address] Rose Mary Ocasio MD Work Phone: -[facility] Start: 12-03-2024 End: 12-03-[address] Rose Mary Ocasio MD Work Phone: -Laboratory [facility] Start: 12-03-2024 End: 12-03-[address] Augustine Pace MD -[facility] Start: 12-03-2024 End: 12-03-2024 ambulatory Augustine Pace Facility:[facility] Start: 11-22-2024 End: 11-22-[address] Rose Mary Ocasio MD Work Phone: -Occupational Therapy Start: 11-22-2024 End: 11-22-[address] Brian Garcia DO -Occupational The rapy Work Phone: Start: 11-05-[address] Brian michael DO -Occupational Therapy Work Phone: Start: 11-01-2024 End: 11-01-[address] Yahir Tesfaye MD -[facility] Start: 11-01-2024 End: 11-01-[address] Rose Mary Ocasio MD Work Phone: [facility] Work Phone: Start: 10-31-2024 End: 10-31-[address] Rose Mary Ocasio MD Work Phone: [facility] Work Phone: Start: 10-31-2024 End: 10-31-[address] Augustine Pace MD -Outpatient Bone Densitometry Work Phone: Start: 10-31-2024 End: 10-31-2024 ambulatory Augustine Pace Facility:[facility] Start: 10-28-[address] Brian michael DO -Occupational Therapy Work Phone: Start: 10-14-2024 End: 10-14-[address] Rose Mary Ocasio MD Work Phone: [facility] Work Phone: Start: 10-14-2024 End: 10-14-[address] Augustine Pace MD -Laboratory [place] Work Phone: Start: 10-14-[address] Brian michael DO -Occupational Therapy Work Phone: Start: 10-14-2024 End: 10-14-2024 ambulatory Augustine Pace Facility:[facility] Start: 10-11-2024 Encounter for other preprocedural examination [facility] Start: 10-09-2024 End: 10-09-[address] Brian Garcia DO -[facility] Work Phone: Start: 10-09-2024 End: 10-09-[address] Rose Mary Ocasio MD Work Phone: [facility] Work Phone: Start: 09-30-2024 End: 09-30-[address] Brian Garcia DO -[facility] Work Phone: Start: 09-30-2024 End: 09-30-[address] Rose Mary Ocasio MD Work Phone: [facility] Work Phone: Start: 09-23-2024 ambulatory Augustine Pace Facility:[facility] Start: 09-23-2024 Non-patient / Non-visit Dr. Brian bettencourt DO -[facility] Start: 09-23-2024 End: 09-23-2024 Admission to same day surgery center Dr. Brian Garcia DO -Surgical Day Care Start: 09-23-2024 End: 09-23-[address] Rose Mary Ocasio MD Work Phone: [facility] Work Phone: Start: 09-19-2024 End: 09-19-2024 ambulatory Augustine Pace Facility:[facility] Start: 09-19-2024 End: 09-19-2024 Non-patient / Non-visit Dr. Jad Teixeira MD -[facility] Work Phone: Start: 09-18-2024 End: 09-18-2024 ambulatory Rose Mary Ocasio Facility:[facility] Start: 09-18-2024 End: 09-18-[address] Brian Garcia DO -[facility] Work Phone: Start: 09-13-2024 End: 09-13-2024 Emergency department patient visit Dr. Ronn Mcgregor MD -Emergency Department Work Phone: Start: 05-10-2024 End: 05-10-2024 ambulatory Rose Mary Ocasio Facility:[facility] Start: 04-08-2024 End: 04-08-2024 ambulatory Tamara Del Cid Facility:[facility] Start: 04-03-2024 ambulatory Tamara Del Cid Facility: [facility] Start: 04-03-2024 End: 04-03-2024 ambulatory Yahir Tesfaye Facility:[facility] Start: 02-21-2023 End: 02-21-[address] Rose Mary Ocasio Work Phone: [facility] Work Phone: Start: 02-21-2023 End: 02-21-[address] Rose Mary Ocasio Work Phone: [facility]-Outpatient Bone Densitometry Work Phone: Start: 01-31-2023 Non-patient / Non-visit Dr. Barrett Ocasio Work Phone: [facility] Start: 01-31-2023 End: 01-31-[address] Rose Mary Ocasio Work Phone: [facility] Work Phone: Start: 01-31-2023 End: 01-31-[address] Rose Mary Ocasio Work Phone: [facility]-Cardiovascula r Services Work Phone: Start: 12-26-2022 End: 12-26-[address] Rose Mary Ocasio Work Phone: [facility] Start: 12-23-2022 End: 12-23-2022 ambulatory DESTINY RANDALL Facility:[facility] Start: 12-23-2022 End: 12-23-2022 Patient encounter procedure Gaby Goode PA-C Work Phone: Orthopaedics Comment on above: Primary osteoarthrit is of right knee (Primary Dx) Start: 12-16-2022 End: 12-16-2022 ambulatory GABY GOODE Facility:[facility] Start: 12-16-2022 End: 12-16-2022 Patient encounter procedure Gaby Goode PA-C Work Phone: Orthopaedics Comment on above: Primary osteoarthrit is of right knee (Primary Dx) Start: 12-09-2022 End: 12-09-2022 ambulatory DESTINY RANDALL Facility:[facility] Start: 12-09-2022 End: 12-09-2022 Patient encounter procedure Destiny Randall DO Work Phone: Orthopaedics Comment on above: S/P arthroscopic cash prisca of right knee (Primary Dx); Primary osteoarthritis of right knee Start: 04-29-2022 End: 04-29-2022 ambulatory GABY GOODE Facility:[facility] Start: 04-27-2022 End: 04-27-2022 ambulatory [facility] Work Phone: Start: 04-27-2022 End: 04-27-2022 Discharged Recurring [facility]-Physical Therapy Start: 04-22-2022 End: 04-22-2022 ambulatory ROSE MARY OCASIO Facility:[facility] Start: 04-22-2022 End: 04-22-2022 Patient encounter procedure Destiny Randall DO Work Phone: Orthopaedics Comment on above: Primary osteoarthrit is of right knee (Primary Dx) Start: 04-15-2022 End: 04-15-2022 ambulatory ROSE MARY OCASIO Facility:[facility] Start: 04-15-2022 End: 04-15-2022 Patient encounter procedure Gaby Valadez PA-C Work Phone: Orthopaedics Comment on above: Primary osteoarthrit is of right knee (Primary Dx) Start: 03-24-2022 Telephone encounter Destiny Randall DO Work Phone: Orthopaedics Comment on above: Appointment Conflict Start: 03-09-2022 Registered Recurring [facility]-Physical Therapy Start: 03-07-2022 End: 03-07-2022 ambulatory [facility] Work Phone: Start: 03-07-2022 End: 03-07-2022 Discharged Recurring [facility]-Physical Therapy Start: 03-07-2022 Registered Recurring [facility]-Physical Therapy Start: 03-02-2022 End: 03-02-2022 ambulatory [facility] Work Phone: Start: 03-02-2022 End: 03-02-2022 Patient encounter procedure [facility] Start: 02-24-2022 End: 02-24-2022 ambulatory ROSE MARY OCASIO Facility:[facility] Start: 02-15-2022 Registered Recurring [facility]-Physical Therapy Start: 02-15-2022 End: 02-15-2022 ambulatory [facility] Work Phone: Start: 02-15-2022 End: 02-15-2022 Patient encounter procedure [facility]-Outpatient Breast Imaging Start: 02-02-2022 Telephone encounter Destiny Randall DO Work Phone: Orthopaedics Comment on above: Appointment Start: 01-06-2022 End: 01-06-2022 ambulatory ROSE MARY OCASIO Facility:[facility] Start: 01-06-2022 End: 01-06-2022 Patient encounter procedure Destiny Randall DO Work Phone: Orthopaedics Comment on above: Pes anserinus bursit is of right knee (Primary Dx) Start: 11-11-2021 Registered [facility]-Physical Therapy Start: 10-01-2021 End: 10-01-2021 Patient encounter procedure Destiny Randall DO Work [...] 10-26-2020 Subsequent hospital visit by physician [facility] Work Phone: Radiology Comment on above: Thumb injury, left, initial encounter [S69.92XA] Start: 08-07-2020 End: 08-07-2020 Patient encounter procedure PHYSICIAN ERIKA [facility] Start: 08-07-2020 End: 08-07-2020 Patient encounter procedure Nguyễn Segura Work Phone: [facility] Start: 07-16-2020 End: 07-16-2020 Patient encounter procedure NGUYỄN SEGURA [facility] Start: 07-16-2020 End: 07-16-2020 Patient encounter procedure Nguyễn Segura Work Phone: [facility] Physician [facility] Procedures Date Procedure Procedure Detail Performing Clinician Start: 02-24-2025 Screening mammography Bentley Pace MD Work Phone: Start: 11-01-2024 Plain x-ray of wrist Dr Denny Ocasio MD Work Phone: Start: 10-31-2024 Dual energy X-ray absorptiometry Dr. Rose Mary Ocasio MD Work Phone: Start: 10-14-2024 Calcium measurement, urine Dr. Rose Mary Ocasio MD Work Phone: Start: 10-14-2024 Osmolality measureme nt, serum Dr. Rose Mary Ocasio MD Work Phone: Comment on above: Previous reported re sult: 300 mOsm/KGEdited by: ENRIQUE on 11/23/24:1115 AMENDED REPORT 11/23/24 1115 OSMOLALITY,SER previously reported as: 300 mOsm/KG Start: 09-23-2024 Open reduction of fracture with internal fixation Dr. Rose Mary Ocasio MD Work Phone: Start: 09-23-2024 Fluoroscopic guidance Bentley Ocasio MD Work Phone: Start: 09-23-2024 Plain x-ray of wrist Dr Denny Ocasio MD Work Phone: Start: 09-13-2024 End: 09-13-2024 Plain x-ray of wrist Dr. Rose Mary Ocasio MD Work Phone: Start: 12-23-2022 Arthrocentesis aspir &/inj major jt/bursa w/o us Gaby Goode PA-C Work Phone: Start: 12-16-2022 Arthrocentesis aspir &/inj major jt/bursa w/o us Gaby Goode PA-C Work Phone: Start: 12-09-2022 Arthrocentesis aspir &/inj major jt/bursa w/o us Destiny Randall DO Work Phone: Start: 04-26-2022 Arthrocentesis aspir &/inj major jt/bursa w/o us Destiny Randall DO Work Phone: Start: 04-15-2022 Arthrocentesis aspir &/inj major jt/bursa w/o us Gaby Valadez PA-C Work Phone: Start: 02-15-2022 Screening mammography Start: 01-06-2022 Injection 1 tendon sheath/ligament aponeurosis Destiny Randall DO Work Phone: Start: 10-26-2020 Radex fingr minimum 2 views 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[employer] Work Phone: Start: 05-18-2015 Adult depression screening assessment Destiny Randall DO Work Phone: H/O: hysterectomy S/P hysterectomy History of operative procedure on knee S/P arthroscopic surgery of right knee Alberto Caldwell PA-C Work Phone: History of operative procedure on knee S/P arthroscopic surgery of right knee Destiny Randall DO Work Phone: Plan of Treatment Date Care Activity Detail Author Start: 11-01-2024 Plain x-ray of wrist Wrist 2 Views [facility] Start: 11-01-2024 XR Wrist 2 Views [facility] Start: 09-30-2024 Patient referral [facility] Work Phone: Start: 09-23-2024 Patient discharge [facility] Start: 09-23-2024 Application of ice collar, cap or bag [facility] Start: 09-23-2024 Catheterization of vein [facility] Start: 09-23-2024 Elevation of affected extremity [facility] Start: 09-23-2024 Following clinical pathway protocol [facility] Start: 09-23-2024 Procedure discontinued [facility] Start: 09-23-2024 Taking patient vital signs [facility] Start: 09-23-2024 Vital signs measurements [facility] Start: 09-23-2024 [facility] Start: 09-23-2024 Anes arthrs/endscpy dstl radius ulna/wrist/hand ANESTH LOWER ARM SURGERY [facility] Start: 09-23-2024 Injection aa&/strd axillary nerve NJX AA&/STRD AX NERVE IMG [facility] Start: 09-23-2024 Optx dstl radl i-artic fx/epiphysl sep [address] XART FX/EPI SEP2 [facility] Start: 09-23-2024 Plain x-ray of wrist Wrist 2 Views [facility] Start: 09-23-2024 XR Wrist 2 Views [facility] Start: 09-23-2024 Medication education [facility] Start: 09-19-2024 Electrocardiographic procedure [facility] Start: 09-13-2024 [facility] Start: 09-13-2024 Application short arm splint forearm-hand static APPLY FOREARM SPLINT [facility] Start: 01-14-2024 Covid-19 Vaccine ( season) Covid-19 Vaccine () [facility] Start: 01-14-2024 Influenza vaccination Influenza Vaccine (#1) [facility] Start: 12-06-2023 Advance Directive Discussion Advance Directive Discussion [facility] Start: 12-06-2023 Pneumococcal Vaccine: 65+ (1 of 1 - PCV) Pneumococcal Vaccine: 65+ (1 of 1 - PCV) [facility] Start: 12-06-2023 Screening for osteoporosis Bone Density Screening [facility] Start: 02-21-2023 Dual energy X-ray absorptiometry Dexa Bone Density Study [facility] Start: 02-21-2023 Screening mammography SCRN MAMM (CAD)W/ADITI BILAT [facility] Start: 01-13-2023 Influenza vaccination [facility] Start: 05-15-2022 DEPRESSION ASSESSMENT DEPRESSION ASSESSMENT [facility] Start: 01-13-2022 Influenza vaccination [facility] Start: 05-15-2021 DEPRESSION ASSESSMENT DEPRESSION ASSESSMENT [facility] Start: 01-13-2021 Influenza vaccination INFLUENZA (#1) [facility] Start: 08-07-2020 End: 08-07-2020 Immunization 08/07/2020 Immunization Primary Care Nguyễn Segura, [employer] [address] [place] [address] [phone] [facility] [place] [facility] Start: 08-06-2020 COVID-19 Vaccine (2 of 2 - Pfizer series) COVID-19 Vaccine (2 of 2 - Pfizer series) [facility] Start: 01-14-2020 Influenza vaccination given Sequential Influenza Vaccine (#1) [facility] Start: 02-26-2019 Administration of herpes zoster vaccine Zoster Vaccines (2 of 2) [facility] Start: 02-26-2019 Shingrix Vaccine (2 of 2) Shingrix Vaccine (2 of 2) [facility] Start: 2018 RSV Vaccine (1 - Risk 60-74 years 1-dose series) RSV Vaccine (1 - Risk 60-74 years 1-dose series) [facility] Start: 07-25-2017 DIABETES SCREEN DIABETES SCREEN [facility] Start: 07-25-2017 Diabetes Screening Diabetes Screening [facility] Start: 05-18-2016 Adult depression screening assessment DEPRESSION SCREENING [facility] Start: 2008 Administration of herpes zoster vaccine Zoster Vaccines (1 of 2) [facility] Start: 2008 Screening for malignant neoplasm of colon [facility] Start: 2008 SHINGRIX VACCINE (1 of 2) SHINGRIX VACCINE (1 of 2) [facility] Start: 12-06-2003 COLOGUARD (FIT-DNA) COLOGUARD (FIT-DNA) [facility] Start: 12-06-2003 Colonoscopy COLONOSCOPY [facility] Start: 12-06-2003 COLORECTAL CANCER SCREENING COLORECTAL CANCER SCREENING [facility] Start: 12-06-[address] COLONOGRAPHY [facility] Start: 12-06-2003 FECAL OCCULT BLOOD FECAL OCCULT BLOOD [facility] Start: 12-06-2003 Lipid panel Lipid Screening [facility] Start: 12-06-2003 LIPID SCREEN LIPID SCREEN [facility] Start: 12-06-2003 Screening for malignant neoplasm of colon [facility] Start: 12-06-2003 SIGMOIDOSCOPY SIGMOIDOSCOPY [facility] Start: 1998 Mammography MAMMOGRAM [facility] Start: 1998 Screening for malignant neoplasm of breast Mammogram Screening [facility] Start: 1988 HPV TESTING HPV TESTING [facility] Start: 12-06-1979 PAP TESTING PAP TESTING [facility] Start: 1977 Urine microalbumin profile [facility] Start: 1976 ANNUAL PCP TEAM CHRONIC DISEASE VISIT ANNUAL PCP TEAM CHRONIC DISEASE VISIT [facility] Start: 1976 Anxiety Screening Anxiety Screening [facility] Start: 1976 BP CONTROLLED (<130/80) BP CONTROLLED (<130/80) [facility] Start: 1976 Depression Screening Depression Screening [facility] Start: 1976 Hepatitis C antibody, confirmatory test Hepatitis C Screening [facility] Start: 1976 HEPATITIS C SCREENING HEPATITIS C SCREENING [facility] Start: 1976 Hepatitis C screening Hepatitis C Screening [facility] Start: 1976 HIV SCREENING HIV SCREENING [facility] Start: 1976 HIV screening HIV Screening [facility] Start: 1973 HIV screening HIV Screening [facility] Start: 1970 Adolescent depression screening assessment Depression Screening (PHQ9) [facility] Start: 1961 History and physical examination, annual for health maintenance Wellness Visit [facility] Start: 1958 Screening for malignant neoplasm of cervix Pap Smear [facility] Start: 1958 Screening mammography Mammogram [facility] Start: 1958 Tetanus vaccination Tetanus: Every 10yrs [facility] Application of [facility] Patient Education Fadi Ontiveros [facility] Work Phone: Patient referral [facility] Work Phone: [facility] Immunizations Immunization Date Immunization Notes Care Provider Bert erid 08-07-2020 Pfizer SARS-CoV-2 Vaccination Jonathan yip [facility] 07-16-2020 Pfizer SARS-CoV-2 Vaccination Magdy Segura [facility] Payers Date Payer Category Payer Self-pay [id number] 2023 Private Health Insurance [id number] 2020 Unknown [employer] PPO [id number] 2020-Present [phone] [address] [place] [address] PPO [id number] 2020 Unknown [id number] 2020 Unknown [employer] PPO [id number] 2020-[facility] [[email or web address] [phone] [address] [place] [address] PPO [id number] 2016 Unknown [id number] Private Health Insurance [id number] Unknown [id number] Unknown [id number] 2.16.840.1.345055.3.579.2.4 62 Unknown [id number] 2.16.840.1.613899.3.579.2.4 62 Unknown [id number] 2.16.840.1.207522.3.579.2.4 62 Unknown [id number] 2.16.840.1.749016.3.579.2.4 62 Unknown [id number] 2.16.840.1.294677.3.579.2.4 62 Unknown [id number] 2.16.840.1.390078.3.579.2.4 62 Unknown [id number] 2.16.840.1.544020.3.579.2.4 62 Unknown [id number] 2.16.840.1.500755.3.579.2.4 62 Unknown [id number] 2.16.840.1.680079.3.579.2.4 62 Unknown [id number] 2.16.840.1.597861.3.579.2.4 62 Unknown [id number] 2.16.840.1.126439.3.579.2.4 62 Unknown [id number] 2.16.840.1.188071.3.579.2.4 62 Unknown [id number] 2.16.840.1.566483.3.579.2.4 62 Unknown [id number] 2.16.840.1.781808.3.579.2.4 62 Unknown [id number] 2.16.840.1.522208.3.579.2.4 62 Unknown [id number] 2.16.840.1.341008.3.579.2.4 62 Unknown [id number] 2.16.840.1.365686.3.579.2.4 62 Unknown [id number] 2.16.840.1.659722.3.579.2.4 62 Unknown [id number] 2.16.840.1.510704.3.579.2.4 62 Unknown [id number] 2.16.840.1.900699.3.579.2.4 62 Unknown [id number] 2.16.840.1.839981.3.579.2.4 62 Unknown [id number] 2.16.840.1.343284.3.579.2.4 62 Unknown [id number] 2.16.840.1.438262.3.579.2.4 62 Unknown [id number] 2.16.840.1.642656.3.579.2.4 62 Unknown [id number] 2.16.840.1.509938.3.579.2.4 62 Social History Date Type Detail Facility Tobacco smoking status NHIS Unknown if ever smoked [facility] Sex Assigned At Not on file [facility] Start: 08-01-2021 End: 02-24-2022 Exposure to SARS-CoV-2 (event) Not sure [facility] Start: 06-16-2014 End: 03-10-2025 Tobacco smoking status NHIS Never smoked tobacco [facility] Work Phone: Start: 06-16-2014 End: 04-23-2015 Tobacco use and exposure Smokeless tobacco non-user [facility] Work Phone: Start: 10-26-2020 End: 08-11-2021 Alcohol intake Current drinker of alcohol (finding) [facility] Start: 07-25-2014 History SDOH Alcohol Comment RARELY [facility] Start: 1960 Sex Assigned At Female [facility] Start: 05-17-2021 End: 09-30-2022 Tobacco smoking status NHIS Unknown if ever smoked [facility] Start: 10-26-2020 End: 12-09-2022 History of Social function [facility] Start: 10-26-2020 End: 12-09-2022 Tobacco use panel [facility] National Score (1-100), lower number is lower risk 72 [facility] Start: 07-16-2021 Gender identity Identifies as female gender (finding) [facility] NEGATED: Highlighted row Not [facility] Medical Equipment Procedure Code Equipment Code Equipment [...] wrist 2.7mm cortex screw FDA Start: 09-23-2024 Xnz-Bk-F-Kind Implant - [id number] Start: 07-27-2021 Comment on above: Description: Suture tape Button Tightrope 14mm Round Fixation Attachable Acl - [id number] Start: 07-27-2021 Comment on above: Description: Tightro pe round button Fiberwire Braide d Polyblend Suture 04ule15wk Bx/5 [id number] Start: 07-27-2021 Goals Date Patient Goal Desired Activity /State Mental Status Date Assessment Result Facility 09-23-2024 Cognitive function Voice/Name;Touch/Jesse pineda [facility] Work Phone: Clinical Notes 10-26-2020 to 03-18-2025 Note Date & Type Note Facility 03-18-2025 Note [facility] Medical Records Department [address] [place] [address] History Physical Exam 03/18/25 0706 MR#: [id number] Acct: [id number] Name: ROSANNE BANERJEE Rep #: [id number] : 1960 64 From: Brian Garcia DO PCP: Dr. Augustine Pace MD Status:[facility] Location: [place] [address] History and Physical Date of Admission: 03/18/25 [facility] [address] [place] [address] [address] [place] [address] OFFICE VISIT Date of Service: 02/28/25 MR#: [id number] Acct: [id number] Name: ROSANNE BANERJEE Rep #: [id number] : 1960 Provider: Dr. Brian Garcia DO Age/Sex: 64/F Location: [facility] Status: Signed Intake Vital Signs 09/23/2510:42 Height 5 ft 2 in Intake Visit Reasons: RIGHT HAND Accompanied by: Self Allergies ramipril (From Altace) Allergy (Verified 02/28/25 10:02) Swelling ARB-Angiotensin Receptor Antagonist Adverse Reaction (Severe, Verified 02/28/25 10:02) Angioedema Medications ???Medication ???Instructions ???Recorded ???Confirmed ???Type levothyroxine 125 mcg tablet 100 mcg PO DAILY 03/18/15 02/28/25 History cholecalciferol (vitamin D3) 50 2,000 unit PO DAILY 04/13/18 02/28/25 History mcg (2,000 unit) capsule (Vitamin D3) melatonin 3 mg capsule 3 mg PO HS PRN sleep 03/27/23 02/28/25 History omega-3 fatty acids 1,000 mg 1,000 mg PO DAILY 03/27/23 02/28/25 History capsule Held on 09/23/24. Instructions: Resume on 09/30/24. metoprolol succinate 25 mg 25 mg PO DAILY #90 tabs 05/27/24 02/28/25 Rx tablet,extended release 24 hr amlodipine 10 mg tablet 10 mg PO QHS 09/13/24 02/28/25 History hydrochlorothiazide 12.5 mg tablet 12.5 mg PO DAILY 09/13/24 02/28/25 History turmeric 400 mg PO DAILY 09/13/24 02/28/25 History Held on 09/23/24. Instructions: Resume on 09/30/24. acetaminophen 325 mg tablet 325 mg PO ONCE PRN pain 09/18/24 02/28/25 History (Tylenol) ciprofloxacin HCl 0.3 % eye drops See Rx Instructions ophthalmic 01/04/25 02/28/25 Rx (eye) .COMPLEX #10 mL Have you fallen in the past year?: [...] substance use type: does not use HPI RIGHT HAND Details: This documentation accurately reflects the service provided and the decisions made by me, Dr. Brian Garcia, DO 02/28/25 0820. Part of today???s visit was documented by Jamia PALAFOX, acting as scribe. ROSANNE BANERJEE is a 64 year old F here today for EMG review of the right wrist. Her symptoms are unchanged 11/01/2024 visit:63 year old F here today for s/p left wrist ORIF distal radius DOS 09/23/2024. Patient denies any pain in the left wrist today and states she is doing well. Patient continues with OT and she has been going once a week right now for range of motion and scar management. Once she is cleared she is going to start going twice a week to start with strengthening exercises. She only has to take pain medication when she feels like she over uses the wrist but states it is not very often. Patient complains of right hand numbness/tingling that she has noticed at night and in the mornings. She has been wearing a brace to sleep in for a couple of years now and it has helped. The index, middle and ring finger goes numb quite often. She is RHD. She denies any injections. She has been working on nerve glide exercises but has not noticed any relief. Plan:Obtained and reviewed left wrist x-rays today in the clinic. Reviewed imaging findings in detail today with the patient and explained that the hardware maintains good positioning and the bones are healing. Explained she can increase her weight restrictions to 7 poun (more content not included)... [facility] 02-28-2025 Progress note [facility] 01-04-2025 Evaluation note Diagnosis Onset Date Resolution Viral conjunctivitis acute Augu st 2024 8:26am Carpal tunnel syndrome, right acute February 28 9:55am [facility] Work Phone: 1(734) 928-800407-11-2025 Discharge summary [facility] Occupational Therapy [facility] [address] [place] [address] / REHABILITATION SERVICES DISCHARGE SUMMARY MR#: [id number] Acct: [id number] Name: ROSANNE BANERJEE Rep #: [id number] : 1960 63 From: Imelda Amador OTR/L, CHT Referring Dr.: Dr. Brian Garcia DO Status: REG RCR Eval Date: Discharge Date: Discharge Summary D/C Summary: It has been my pleasure to treat ROSANNE BANERJEE under orders from Dr. Brian Garcia DO, for the diagnosis of left intra artic lower end radius fx for a total of 7 visit(s). Please see the following information for a summary of their discharge status. Overall Improvement % Improvement: 85 Objective Objective/Function: Pt doing well- found wts at home- gave HEP handout this day. Not getting as much wrist flexion- using hand at home and is not limiting her from much. right survey chief strength 50# left 40# right lateral pinch 10# left 8# right tripod pinch 6# left 6# did feel discomfort pt has met OT goals and can be d/c with HEP Goals Patient Goals: Regain Mobility, Improve Fine Motor Skills, Use Hand/Wrist/Arm Normally Again and BeMore Independent in ADLS Goal:ROM equal to unaffected hand: Yes Goal Progress: Goal Met Goal:Hydro Generation Manager/Pinch strength at least 75% of unaffected hand: Yes Goal Progress: Progressing Goal:No pain with affected hand use: Yes Goal Progress: Goal Met Goal:Full use of affected hand in daily activities including work: Yes Goal Progress: Goal Met Goal:Decrease scar hypersensitivity: Yes Other Goal: pt will demo understanding of elevation, ice to decrease edema by end of 1st session. (goal met) Plan Plan: cont with strengthening D/C Information Discharge Comments: pt states she is doing better and able to do more- pt will cont. with HEP to improve her strength. d/c sentence: If there are questions or concerns regarding this patient's occupational therapy, please fell free to call me at [phone]. Thank you for the referral of this patient. Sincerely, ANGÉLICA Linares/Ela, CHT 11/22/24 1144 CC: Dr. Augustine Pace MD; Dr. Brian Garcia DO ~ MK Signed [facility]07-11-2025 Discharge summary Author Imelda Amador [facility] Note Date/Time November 22, 2024 12:4 2pm [facility] [address] [place] [address] / REHABILITATION SERVICES DISCHARGE SUMMARY MR#: [id number] Acct: [id number] Name: ROSANNE BANERJEE Rep #: [id number] : 1960 63 From: Imelda LINDSAY/Ela, T Referring Dr.: Dr. Brian Garcia DO Status: REG RCR Eval Date: Discharge Date: Discharge Summary D/C Summary: It has been my pleasure to treat ROSANNE BANERJEE under orders from Dr. Brian Garcia DO, for the diagnosis of left intra artic lower end radius fx for a total of 7 visit(s). Please see the following information for a summary of their discharge status. Overall Improvement % Improvement: 85 Objective Objective/Function: Pt doing well- found wts at home- gave HEP handout this day. Not getting as much wrist flexion- using hand at home and is not limiting her from much. right survey chief strength 50# left 40# right lateral pinch 10# left 8# right tripod pinch 6# left 6# did feel discomfort pt has met OT goals and can be d/c with HEP Goals Patient Goals: Regain Mobility, Improve Fine Motor Skills, Use Hand/Wrist/Arm Normally Again and Be More Independent in ADLS Goal:ROM equal to unaffected hand: Yes Goal Progress: Goal Met Goal:Hydro Generation Manager/Pinch strength at least 75% of unaffected hand: Yes Goal Progress: Progressing Goal:No pain with affected hand use: Yes Goal Progress: Goal Met Goal:Full use of affected hand in daily activities including work: Yes Goal Progress: Goal Met Goal:Decrease scar hypersensitivity: Yes Other Goal: pt will demo understanding of elevation, ice to decrease edema by end of 1st session. (goal met) Plan Plan: cont with strengthening D/C Information Discharge Comments: pt states she is doing better and able to do more- pt will cont. with HEP to improve her strength. d/c sentence: If there are questions or concerns regarding this patient's occupational therapy, please fell free to call me at [phone]. Thank you for the referral of this patient. Sincerely, Imelda Amador, OTR/L, CHT <Electronically signed by Imelda Amador OTR/Ela, CHT> 11/22/24 1352 CC: Dr. Augustine Pace MD; Dr. Brian Garcia, DO ~ MK Signed [facility] Work Phone: 1(635) 510-492805-19-2025 Progress [facility] [address] [place] [address] OFFICE VISIT Date of Service: 09/30/24 MR#: [id number] Acct: [id number] Name: ROSANNE BANERJEE Rep #: [id number] : 1960 Provider: Dr. Azeem Garcia DO Age/Sex: 63/F Location: [facility] Status: Signed Intake Vital Signs 09/18/24 08:32 [...] decisions made by me, Dr. Brian Garcia, 09/30/24 0758. Part of today?s visit was documented by Hailey R ATC, acting as scribe. ROSANNE BANERJEE is a 63 year old F here today for 1 week postop left wrist ORIF. Patient denies any pain today. She has not been taking the oxycodone that was prescribed after surgery. Patient states shewas mostly taking Tylenol but has not taken [...] intraarticular fracture of lower end of left radius,initial encounter for closed fracture Plan Removed splint [...] fallen in the past year?: Yes 09/30/24 1113 o DO> Date _ Brian Garcia DO Cosigner Signature: Date (if applicable) CC: ~ [facility]05-19-2025 Progress note Author Brian Garcia [facility] Note Date/Time September 30, 2024 11:13 am [facility] [address] [place] [address] OFFICE VISIT Date of Service: 09/30/24 MR#: [id number] Acct: [id number] Name: ROSANNE BANERJEE Kaley Rep #: [id number] : 1960 Provider: Dr. Azeem Garcia DO Age/Sex: 63/F Location: [facility] Status: Signed Intake Vital Signs 09/18/24 08:32 [...] acids 1,000 mg 1,000 mg PO DAILY 03/27/2 3 09/30/24 History capsule Held on 09/23/24. [...] fallen in the past year?: Yes 09/30/24 1113 <Electronically signed by Brian saravia DO> Date _ Brian Garcia DO Cosigner Signature: Date (if applicable) CC: ~ [facility] Work Phone: 1(263) 801-180405-12-2025 Discharge summary Author Brian Garcia [facility] Note Date/Time September 23, 2024 2:53p m [facility] Medical Records Department [address] [place] [address] Instructions for Home/Discharge Instructions 09/23/24 1448 MR#: [id number] Acct: [id number] Name: ROSANNE BANERJEE Rep #:[id number] : 1960 63 From: Brian Garcia DO PCP: Dr. Augustine Pace MD Status:[facility] Discharge Instructions Diet Discharge Diet: No restrictions [...] Care Provider: Augustine Pace Instructions Print Language: Greenlandic Discharge Orders/Prescriptions Prescriptions: New cephalexin 500 mg [...] can be placed): Home, Self Care 09/23/24 1453<Electronically signed by Brian Garcia DO>[facility] CC: Dr. Augustine Pace MD ~ Signed [facility] Work Phone: 1(820) 947-777205-12-2025 Consult note Author Kuldeep Mckenna [facility] Note Date/Time September 23, 2024 2:51p [facility] Medical Records Department [address] [place] [address] Anesthesia Postop Eval I 09/23/24 1450 MR#: [id number] Acct: [id number] Name: ROSANNE BANERJEE Rep #:[id number] : 1960 63 From: Kuldeep METCALF PCP: Dr. Augustine Pace MD Status:REG SDC Y Race: C Location: [place] [address] Anesthesia: Postop Eval I Current Vital Signs [...] Postop Eval 1 completed: Yes 09/23/24 1451 <Electronically signed by Kuldeep Mckenna CRNA> Date _ Kuldeep Mckenna HAT AND CAP PARTS CUTTER HAND Cosigner Signature: Date CC: ~ Signed [facility] Work Phone: 1(528) 753-658905-12-2025 History and physical note Author Brian Garcia [facility] Note Date/Time September 23, 2024 1:[address] [place] [address] Medical Records Department [address] [place] [address] History & Physical Exam 09/23/24 1308 MR#: [id number] Acct: [id number] Name: ROSANNE BANERJEE Rep #:[id number] : 1960 63 From: Brian Garcia DO PCP: Dr. Augustine Pace MD Status:[facility] Location: [place] [address] History and Physical Date of Admission: 09/23/24 [facility] [address] [place] [address] OFFICE VISIT Date of Service: 09/18/24 MR#: [id number] Acct: [id number] Name: ROSANNE BANERJEE Rep #: [id number] : 1960 Provider: Dr. Brian Garcia DO Age/Sex: 63/F [place] [facility] Status: Signed Intake Vital Signs 09/13/2512:06 09/13/2513:27 [...] in the past year?: Yes 09/18/24 0952 <Electronically signed by Brian Garcia DO> Date Brian Garcia DO I have examined the patient and the H&P has been reviewed. There are no clinicalchanges since date of exam. 09/23/24 1309 <Electronically signed by Brian Garcia DO> Cosigner Signature (if applicable): CC: Dr. Augustine Pace MD; Dr. Brian Garcia DO~ Signed [facility] Work Phone: 1(463) 756-994905-12-2025 Discharge summary [facility] Medical Records Department [address] [place] [address] Instructions for Home/Discharge Instructions 09/23/24 1448 MR#: [id number] Acct: [id number] Name: ROSANNE BANERJEE Rep #:[id number] : 1960 63 From: Brian Garcia DO PCP: Dr. Augustine Pace MD Status:[facility] Discharge Instructions Diet Discharge Diet: No restrictions [...] Primary Care Provider: Augustine Pace Print Language: Greenlandic Discharge Orders/Prescriptions Prescriptions: New cephalexin 500 mg [...] can be placed): Home, Self Care 09/23/24 1453Josaint elizabeth [facility] Jose DO CC: Dr. Augustine Pace MD ~ Signed [facility]05-12-2025 Consult note [facility] Medical Records Department [address] [place] [address] Anesthesia Postop Eval I 09/23/24 1450 MR#: [id number] Acct: [id number] Name: ROSANNE BANERJEE Rep #:[id number] : 1960 63 From: Kuldeep METCALF PCP: Dr. Augustine Pace MD Status:REG SD Y Race: C Location: [place] [address] Anesthesia: Postop Eval I Current Vital Signs [...] Postop Eval 1 completed: Yes 09/23/24 1451 HAT AND CAP PARTS CUTTER HAND> Date _ Kuldeep Mckenna HAT AND CAP PARTS CUTTER HAND Cosigner Signature: Date CC: ~ Signed [facility]05-12-2025 Procedure note [facility] Medical Records Department [address] [place] [address] Operative Report 09/23/24 1444 MR#: [id number] Acct: [id number] Name: ROSANNE BANERJEE Rep #:[id number] : 1960 63 From: Brian Garcia DO PCP: Dr. Augustine Pace MD Status:[facility] Location: [place] [address] Operative Report (Standard) Operative Information Date of Procedure: 09/23/24 Pre-Operative Diagnosis: Left distal radius comminuted intra-articular fracture greater than 3 fragments Post-Operative Diagnosis: Same Surgery/Procedure Performed: ORIF distal radius high speed printer operator: Yes Miller Head Wet Process: Ronn Ugarte Tasks completed by nurse first aid: Opening & closing, Implanting device, Hemostasis: Electrocautery and Retracting Additional lpn or medical assistant?: No Type of Anesthesia: General RN [...] debriswith the use of small rongeur and Buchanan. The fracture was then reduced with the use of a Buchanan and ulnar deviation and wrist flexion. This [...] web roll volar paster splint and an Felix wrap. There was no complications intraoperatively and the patient was brought back to the PACU in stable condition where she received an axillary block. All counts were correct. Surgical Findings: Comminuted intra-articular distal radius fracture Complications Complications: No 09/23/24 1448 Cosigner Signature (if applicable): CC: Dr. Augustine Pace MD; Dr. Brian Garcia, DO~ Signed [facility]05-12-2025 Consult note Author [facility] Note Date/Time September 23, 2024 12:36 pm [facility] Medical Records Department [address] [place] [address] Pre-Anesthesia Evaluation 09/23/24 1225 MR#: [id number] Acct: [id number] Name: ROSANNE BANERJEE Rep #:[id number] : 1960 63 From: Ramsey Melgoza MD PCP: Dr. 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 Hx Hospitalization No 09/19/24 12:25 Any Problems [...] sips of water?: Yes PONV PONV - licensed nuclear control room operator: PONV - licensed nuclear control room operator Female Yes 09/19/24 12:25 HX of Motion [...] 09/23/24 11:42 Respiratory Assessment Respiratory Assessment - licensed nuclear control room operator: Respiratory Tract Infection Hx - licensed nuclear control room operator Hx Respiratory Tract Infection No 09/19/24 12:25 STOP Sleep Apnea STOP Sleep Apnea - licensed nuclear control room operator: STOP Sleep Apnea - licensed nuclear control room operator Hx Hypertension Yes: CONTROLLED WITH MED 09/19/24 [...] Tobacco Use History Tobacco Use History - licensed nuclear control room operator: Tobacco Use History - licensed nuclear control room operator Tobacco Use Smoking Status Never smoker 09/19/24 12:25 Hx Tobacco Use No 09/19/24 12:25 Years Smoking Packs Smoked per Day Smoking Cessation Date was within the last 15 years Hx Smoking Cessation Date Hx Smoking Cessation Counseling Hematologic Medial History Hematologic Hx - 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 09/23/24 1236 <Electronically signed by Ramsey mesa MD> Date _ Ramsey Melgoza MD Cosigner Signature: Date CC: ~ Signed [facility] Work Phone: 1(117) 803-995605-12-2025 History and physical note [facility] Medical Records Department [address] [place] [address] History & Physical Exam 09/23/24 1308 MR#: [id number] Acct: [id number] Name: ROSANNE BANERJEE Rep #:[id number] : 1960 63 From: Brian Garcia DO PCP: Dr. Augustine Pace MD Status:[facility] Location: [place] [address] History and Physical Date of Admission: 09/23/24 [facility] [address] [place] [address] [id number] OFFICE VISIT Date of Service: 09/18/24 MR#: [id number] Acct: [id number] Name: ROSANNE BANERJEE Rep #: [id number] : 1960 Provider: Dr. Brian Garcia DO Age/Sex: 63/F Location: [facility] Status: Signed Intake Vital Signs 09/13/2512:06 09/13/2513:27 [...] by me, Dr. Brian Garcia, DO 09/18/24 5478. Part of today?s visit was documented by [...] no clinicalchanges since date of exam. 09/23/24 2018 Cosigner Signature (if applicable): CC: Dr. Augustine Pace MD; Dr. Brian Garcia DO~ Signed [facility]05-12-2025 [facility] Medical Records Department [address] [place] [address] History Physical Exam 09/23/24 1308 MR#: [id number] Acct: [id number] Name: ROSANNE BANERJEE Rep #: [id number] : 1960 63 From: Brian Garcia DO PCP: Dr. Augustine Pace MD Status:REG [facility] Location: [address] History and Physical Date of Admission: 09/23/24 [facility] [address] [place] [address] OFFICE VISIT Date of Service: 09/18/24 MR#: [id number] Acct: [id number] Name: ROSANNE BANERJEE Rep #: [id number] : 1960 Provider: Dr. Brian Garcia DO Age/Sex: 63/F Location: [facility] Status: Signed Intake Vital Signs 09/13/2512:06 09/13/2513:27 [...] has intact sensation lig (more content not included)...[facility]05-12-2025 Consult note [facility] Medical Records Department [address] [place] [address] Pre-Anesthesia Evaluation 09/23/24 1225 MR#: [id number] Acct: [id number] Name: ROSANNE BANERJEE Rep #:[id number] : 1960 63 From: Ramsey Melgoza MD PCP: Dr. 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 Hx Hospitalization No 09/19/24 12:25 Any Problems [...] sips of water?: Yes PONV PONV - licensed nuclear control room operator: PONV - licensed nuclear control room operator Female Yes 09/19/24 12:25 HX of Motion [...] 09/23/24 11:42 Respiratory Assessment Respiratory Assessment - licensed nuclear control room operator: Respiratory Tract Infection Hx - licensed nuclear control room operator Hx Respiratory Tract Infection No 09/19/24 12:25 STOP Sleep Apnea STOP Sleep Apnea - licensed nuclear control room operator: STOP Sleep Apnea - licensed nuclear control room operator Hx Hypertension Yes: CONTROLLED WITH MED 09/19/24 [...] Tobacco Use History Tobacco Use History - licensed nuclear control room operator: Tobacco Use History - licensed nuclear control room operator Tobacco Use Smoking Status Never smoker 09/19/24 12:25 Hx Tobacco Use No 09/19/24 12:25 Years Smoking Packs Smoked per Day Smoking Cessation Date was within the last 15 years Hx Smoking Cessation Date Hx Smoking Cessation Counseling Hematologic Medial History Hematologic Hx - 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 09/23/24 1236 moshe PAYNE> Date _ Ramsey Melgoza MD Cosigner Signature: Date CC: ~ Signed [facility]05-07-2025 Evaluation note* Diagnosis Onset Date Resolution Status Admit Date Distal radius fracture, left acute September 18, 2024 8:31am [facility] Work Phone: [phone]) 964-695205-07-2025 Evaluation note* Diagnosis Onset Date Resolution Status Admit Date Distal radius fracture, left acute September 18, 2024 8:31am Orthopedic aftercare acute September 30, 2024 10:04am [facility] Work Phone: 1(823) 657-679205-07-2025 Evaluation note* Diagnosis Onset Date Resolution Status Admit Date Distal radius fracture, left acute September 18, 2024 8:31am Orthopedic aftercare acute September 30, 2024 10:04am Orthopedic aftercare acute October 09, 2024 10:04am [facility] Work Phone: [phone]) [phone] Evaluation note* Diagnosis Onset Date Resolution Status Admit Date Distal radius fracture, left acute September 18, 2024 8:31am Orthopedic aftercare acute September 30, 2024 10:04am Orthopedic aftercare acute October 09, 2024 10:04am Carpal tunnel syndrome, right acute November 01, 2024 8:53am [facility] Work Phone: 1(618) 563-495608-11-2023 NoteHNO ID: [id number] Author: Gaby Goode PA-C Service: ? Author Type: Physician M1A1 Tank Crewman Type: Progress Notes Filed: 12/23/2022 2:33 PM Note Text: Ms. Rosanne Banerjee presents today for right knee supartz injection #3/3. Today she rates her pain a 6 on a scale of 0 to 10. Large Joint Arthro/Inj: R knee joint Informed Consent Consent Obtained: Verbal Emblem Protocol A moment to CARE was completed. [...] equipment or retained foreign bodies applicable. [facility] History of Present illness Narrative* Gaby Goode PA-C - 12/23/2022 1:22 PM EDTAssociated Order(s): Large Joint Arthro/Inj: R knee joint Post-Procedure Diagnose(s): Primary osteoarthritis of right knee Ms. Rosanne Banerjee presents today for right knee supartz injection #3/3. Today she rates her pain a 6 on a scale of 0 to 10. Large Joint Arthro/Inj: R knee joint Informed Consent Consent Obtained: Verbal Emblem Protocol A moment to CARE was completed. [...] applicable. Gaby Goode PA-C documented in this encounterGen[facility]08-04-2023 NoteHNO ID: [id number] Author: Gaby Goode PA-C Service: ? Author Type: Physician M1A1 Tank Crewman Type: Progress Notes Filed: 12/16/2022 11:59 AM Note Text: Ms. Rosanne Banerjee presents today for right knee supartz injection #2/3. Today she rates her pain a 0 on a scale of 0 to 10 at rest. Large Joint Arthro/Inj: R knee joint Informed Consent Consent Obtained: Verbal Emblem Protocol A moment to CARE was completed. [...] equipment or retained foreign bodies applicable. [facility] History of Present illness Narrative* Gaby Goode PA-C - 12/16/2022 11:34 AM EDTAssociated Order(s): Large Joint Arthro/Inj: R knee joint Post-Procedure Diagnose(s): Primary osteoarthritis of right knee Ms. Rosanne Banerjee presents today for right knee supartz injection #2/3. Today she rates her pain a 0 on a scale of 0 to 10 at rest. Large Joint Arthro/Inj: R knee joint Informed Consent Consent Obtained: Verbal Emblem Protocol A moment to CARE was completed. [...] applicable. Gaby Goode PA-C documented in this encounterGenesis Hospital07-28-2023 NoteHNO ID: [id number] Author: Destiny Randall, DO Service: ? Author Type: Physician Type: Progress Notes Filed: 12/11/2022 8:48 AM Note Text: Large Joint Arthro/Inj: R knee joint Informed Consent Consent Obtained: Verbal Emblem Protocol A moment to CARE was completed. [...] She is here to receive Supartz injection 05/17. She has increasing pain with [...] 1 capsule by mouth once daily. omega 4-vks-thk-fish oil 1,000 mg (250 mg-750 mg)/5 mL [...] for this visit. Physical Exam Vitals: [facility] 07/02/2014 Psych: Pleasant, good affect and mood [...] Posterior - negative Kirkpatrick (more content not included)...[facility]07-28-2023 History of Present illness Narrative* Destiny Randall, - 12/09/2022 9:47 AM EDTAssociated Order(s): Large Joint Arthro/Inj: R knee joint Post-Procedure Diagnose(s): S/P arthroscopic surgery of right knee; Primary osteoarthritis of rightknee Images from the original note were not included. Large Joint Arthro/Inj: R knee joint Informed Consent Consent Obtained: Verbal Emblem Protocol A moment to CARE was completed. [...] knee. She is here to receiveSupartz injection 1. She has increasing pain with walking and [...] 1 capsule by mouth once daily. omega 1-sfm-tlv-fish oil 1,000 mg (250 mg-750 mg)/5 mL [...] for this visit. Physical Exam Vitals: [facility] 07/02/2014 Psych: Pleasant, good affect and mood [...] May get injection every 3 months Destiny Randall D.O. M.P.H. documented in this encounterGenesis Hospital12-16-2022 NoteHNO ID: [id number] Author: Gaby Valadez PA-C Service: ? Author Type: Physician M1A1 Tank Crewman Type: Progress Notes Filed: 04/29/2022 8:52 AM Note Text: Ms. Rosanne Banerjee presents today for right knee supartz injection #3/3. Today she rates her pain a 1 on a scale of 0 to 10. Large Joint Arthro/Inj: R knee joint Informed Consent Consent Obtained: Verbal Emblem Protocol A moment to CARE was completed. [...] of Care Visit completed when applicable [facility]12-09-2022 NoteHNO ID: [id number] Author: Destiny Randall, DO Service: ? Author [...] 1 capsule by mouth once daily. omega 7-aax-xsi-fish oil 1,000 mg (250 mg-750 mg)/5 mL [...] for this visit. Physical Exam Vitals: [facility] 07/02/2014 Psych: Pleasant, good affect and mood [...] knee joint Informed Consent Consent Obtained: Verbal Emblem Protocol A moment to CARE was completed. SIGN IN Personnel directly involved with the procedure wore the appropriate PPE. Special Equipment: Yes Patient/Surrogate Stated/Verified: Date of , Relevant allergies, Intended procedure and Patient name TIME OUT Intended patient and procedure match the source document(s). Consent documented and matches the intended procedure. Relevant labs, photos, and/or imaging studies have been review (more content not included)...[facility]12-09-2022 History of Present illness Narrative* Destiny Randall, DO - 04/22/2022 10:29 AM ESTAssociated [...] 1 capsule by mouth once daily. omega 5-veu-cnz-fish oil 1,000 mg (250 mg-750 mg)/5 mL [...] knee joint Informed Consent Consent Obtained: Verbal Emblem Protocol A moment to CARE was completed. [...] injection every 3 months documented in this encounterGenesis Hospital12-02-2022 NoteHNO ID: [id number] Author: Gaby Valadez PA-C Service: ? Author Type: Physician M1A1 Tank Crewman Type: Progress Notes Filed: 04/15/2022 11:25 AM Note Text: Ms. Rosanne Banerjee presents today for right knee supartz injection #1/5. Today she rates her pain a 2 on a scale of 0 to 10. Large Joint Arthro/Inj: R knee joint Informed Consent Consent Obtained: Verbal Emblem Protocol A moment to CARE was completed. [...] of Care Visit completed when applicable [facility] History of Present illness Narrative* Gaby Valadez PA-C - 04/15/2022 11:24 AM ESTAssociated Order(s): Large Joint Arthro/Inj: R knee joint Post-Procedure Diagnose(s): Primary osteoarthritis of right knee Ms. Rosanne Banerjee presents today for right knee supartz injection #1/5. Today she rates her pain a 2 on a scale of 0 to 10. Large Joint Arthro/Inj: R knee joint Informed Consent Consent Obtained: Verbal Emblem Protocol A moment to CARE was completed. [...] applicable Gaby Valadez PA-C documented in this encounterGenesis Hospital11-10-2022 Miscellaneous Notes* Telephone Encounter - Eligio [...] schedule with them. Thanks! documented in this encounterGenesis Hospital10-13-2022 NoteHNO ID: [id number] Author: Destiny Randall, DO Service: ? Author [...] 1 capsule by mouth once daily. omega 3-jau-yqm-fish oil 1,000 mg (250 mg-750 mg)/5 mL [...] for this visit. Physical Exam Vitals: [facility] 07/02/2014 Psych: Pleasant, good affect and mood [...] detailed. Patient verbalizes underst (more content not included)...[facility]10-13-2022 NoteHNO ID: [id number] Author: Lexy Lawrence RN Service: ? Author [...] been taking meloxicam and going to physical therapy.[facility]09-21-2022 Miscellaneous Notes* Tele[facility] En[facility]02/2022 2:07 PM EDT Fax came approving Rt knee sp. Scanned to chart. Please contact the patient for scheduling. documented in this encounterGenesis Hospital08-25-2022 NoteHNO ID: [id number] Author: Destiny Randall, DO Service: ? Author Type: Physician Type: Progress Notes Filed: 01/27/2022 1:38 PM Note Text: Additional Injections: R Distal hamstring tendon for Knee Tendinopathy Informed Consent Consent Obtained: Verbal Emblem Protocol A moment to CARE was completed. [...] Aching;Dull;Sore Duration Amount of Time: -- DOS: 315 Frequency: Intermittent Intervention/Comfort measure: Reposition;Relaxation;Other: See comment [...] 1 capsule by mouth once daily. omega 2-spz-mel-fish oil 1,000 mg (250 mg-750 mg)/5 mL [...] for this visit. Physical Exam Vitals: [facility] 07/02/2014 Psych: Pleasant, good affect and mood General Appearance: Well appearing, alert, in no acute distress, well-hydrated, well nourished.. Skin: Skin color, texture, turgor normal, no suspicious rashes or lesions. Peripheral Pulses: Normal. Neurologic: Gait normal. Reflexes normal and symmetric. Sensation grossly intact.. Lymph Nodes: No cervical lymphadenopathy, No supraclavicular lymphaden (more content not included)...[facility]08-25-2022 History of Present illness Narrative* Destiny Randall, DO - 01/06/2022 11:00 AM EDTAssociated Order(s): Additional Injections: R Distal hamstring tendon Post-Procedure Diagnose(s): Pes anserinus bursitis of right knee Images from the original note were not included. Additional Injections: R Distal hamstring tendon for Knee Tendinopathy Informed Consent Consent Obtained: Verbal Emblem Protocol A moment to CARE was completed. [...] 1 capsule by mouth once daily. omega 8-ydc-rzc-fish oil 1,000 mg (250 mg-750 mg)/5 mL [...] for this visit. Physical Exam Vitals: [facility] 07/02/2014 Psych: Pleasant, good affect and mood [...] Durolane or payor preferred documented in this encounterGenesis Hospital05-20-2022 History of Present illness Narrative* Destiny [...] 1 capsule by mouth once daily. omega 1-bvg-axy-fish oil 1,000 mg (250 mg-750 mg)/5 mL [...] for this visit. Physical Exam Vitals: [facility] 07/02/2014 Psych: Pleasant, good affect and mood [...] treatment plan as discussed. documented in this encounterGenesis Hospital04-27-2022 History of Present illness Narrative* Alberto Caldwell PA-C - 09/08/2021 1:42 PM EDT Images from the original note were not included. POST OP Alberto Caldwell PA-C Department of Orthopaedics Orthopaedics [address] [place] [address] Dept: [phone] Ms. Banerjee presents today for her 6 [...] Dr. Prakash Caldwell PA-C documented in this encounterGenesis Hospital03-30-2022 History of Present illness Narrative* Destiny Randall, DO - 08/11/2021 10:38 AM EDT Images [...] 1 capsule by mouth once daily. omega 9-abj-usl-fish oil 1,000 mg (250 mg-750 mg)/5 mL [...] for this visit. Physical Exam Vitals: [facility] 07/02/2014 Psych: Pleasant, good affect and mood [...] treatment plan as discussed. documented in this encounterGenesis Hospital03-15-2022 NoteHNO ID: [id number] Author: Neva Pace APRN.[employer] Service: Anesthesiology Author Type: Nurse Carrot Buncher Type: Anesthesia Procedure Notes Filed: 07/27/2021 12:32 PM Note Text: ANESTHESIOLOGY PROCEDURE NOTE Airway General Information Procedure Start Time/Medication Administration: 07/27/2021 12:18 PM Patient location during procedure: OR Timeout Performed Pre-procedure: timeout performed Consent Obtained: Yes Patient identity confirmed: arm band and patient Staffing [employer]: Neva Pace APRN.[employer] Performed by: MARI Indications and Patient Condition Preoxygenated: yes Patient position: sniffing Manual In-Line Stabilization: No Difficult Mask: No Indications for airway management: anesthesia anesthesia circuit Method: asleep Cricoid Pressure: No Final Airway Details Final airway type: supraglottic airway Number of attempts at approach: 1 Final Supraglottic Airway: i-gel Size 4 Seal Adequate: yes Airway not difficult SIGNATURE: Neva Pace APRN.CRNA PATIENT NAME: Rosanne Banerjee DATE: July 27, 2021 TIME: 12:32 PM CSN: [id number] History of Past illness Narrative* Problem Noted Date Resolved Date Tear of medial meniscus of right knee 07/23/2021 07/27/2021 documented as of this encounter (statuses as of 08/11/2021) [facility] of Past illness Narrative* Problem Noted Date Resolved Date Tear of medial meniscus of right knee 07/23/2021 07/27/2021 documented as of this encounter (statuses as of 09/08/2021) [facility] of Past illness Narrative* Problem Noted Date Resolved Date Tear of medial meniscus of right knee 07/23/2021 07/27/2021 documented as of this encounter (statuses as of 10/01/2021) [facility] of Past illness Narrative* Problem Noted Date Resolved Date Tear of medial meniscus of right knee 07/23/2021 07/27/2021 documented as of this encounter (statuses as of 01/07/2022) [facility] of Past illness Narrative* Problem Noted Date Resolved Date Tear of medial meniscus of right knee 07/23/2021 07/27/2021 documented as of this encounter (statuses as of 03/24/2022) [address]11-2022 History of Past illness Narrative* Problem Noted Date Resolved Date Tear of medial meniscus of right knee 07/23/2021 07/27/2021 documented as of this encounter (statuses as of 04/15/2022) [address]11-[address]22 History of Past illness Narrative* Problem Noted Date Resolved Date Tear of medial meniscus of right knee 07/23/2021 07/27/2021 documented as of this encounter (statuses as of 04/26/2022) [address]22 History of Past illness Narrative* Problem Noted Date Resolved Date Tear of medial meniscus of right knee 07/23/2021 07/27/2021 documented as of this encounter (statuses as of 11/11/2022) [facility] of [facility] illness Narrative* Problem Noted Date Diagnosed Date Resolved Date Tear of medial meniscus of right knee 07/23/2021 07/27/2021 documented as of this encounter (statuses as of 12/11/2022) [facility] of Past illness Narrative* Problem Noted Date Diagnosed Date Resolved Date Tear of medial meniscus of right knee 07/23/2021 07/27/2021 documented as of this encounter (statuses as of 12/16/2022) [facility] of Past illness Narrative* Problem Noted Date Diagnosed Date Resolved Date Tear of medial meniscus of right knee 07/23/2021 07/27/2021 documented as of this encounter (statuses as of 12/24/2022) [facility] History of Present illness Narrative* Jaye Don RT(R) - 10/26/2020 11:10 AM EDT Radiology [...] 26, 2020 11:29 AM documented in this encounterGenesis HospitalEvaluation note* Diagnosis Other tear of medial meniscus of right knee as current injury, initial encounter- Primary documented in this [facility]* Diagnosis S/P arthroscopic surgery of right knee- Primary Other postprocedural status [facility] Diagnosis Chronic pain of right knee- Primary Tear of medial meniscus of right knee, current, unspecified tear type, subsequent encounter documented in this encounter [facility] noteNo assessment information availableWCommunity [facility] Work Phone: Evaluation note* Diagnosis Pes anserinus bursitis of right knee- Primary Pes anserinus tendinitis or bursitis documented [facility] this [facility]* Diagnosis Primary osteoarthritis of right knee- Primary Primary localized osteoarthrosis, lower leg [facility]* Diagnosis Primary osteoarthritis of right knee- Primary Primary localized osteoarthrosis, lower leg [facility]* Diagnosis S/P arthroscopic surgery of right knee- Primary Other postprocedural status Primary osteoarthritis of right knee Primary localized osteoarthrosis, lower leg [facility]* Diagnosis Primary osteoarthritis of right knee- Primary Primary localized osteoarthrosis, lower leg [facility]* Diagnosis Primary osteoarthritis of right knee- Primary Primary localized osteoarthrosis, lower leg [facility]* Diagnosis Thumb injury, left, initial encounter Pre-operative examination- Primary Preoperative examination, unspecified Tear of medial meniscus of right knee, unspecified tear type, unspecified whether old or current tear, subsequent encounter Essential (primary) hypertension Unspecified essential hypertension Hypothyroidism, unspecified type Morbid obesity (HCC) Morbid obesity documented in this encounter [facility] Discharge instructionsAmbulatory Orders* Occupational Therapy Referral Location: None Selected [facility] Work Phone: Progress note Author Brian Garcia [facility] Note Date/Time February 28, 2025 1 0:28am [facility] [address] [place] [address] [address] [place] [address] OFFICE VISIT Date of Service: 02/28/25 MR#: [id number] Acct: [id number] Name: ROSANNE BANERJEE Rep #: [id number] : 1960 Provider: Dr. Azeem Garcia, Age/Sex: 64/F Location: [facility] Status: Signed Intake Vital Signs 09/23/24 11:42 Height 5 ft 2 in Intake Visit Reasons: RIGHT HAND Accompanied by: Self Allergies ramipril (From Altace) Allergy (Verified 02/28/25 10:02) Swelling ARB-Angiotensin Receptor Antagonist Adverse Reaction (Severe, Verified 02/28/25 10:02) Angioedema Medications ?Medication ?Instructions ?Recorded ?Confirmed ?Type levothyroxine 125 mcg tablet 100 mcg PO DAILY 03/18/15 02/28/25 History cholecalciferol (vitamin D3) 50 2,000 unit PO DAILY 02/28/25 History mcg (2,000 unit) capsule (Vitamin D3) melatonin 3 mg capsule 3 mg PO HS PRN sleep 3 02/28/25 History omega-3 fatty acids 1,000 mg 1,000 mg PO DAILY 3 02/28/25 History capsule Held on 09/23/24. Instructions: Resume on 09/30/24. metoprolol succinate 25 mg 25 mg PO DAILY #90 tabs 02/28/25 Rx tablet,extended release 24 hr amlodipine 10 mg tablet 10 mg PO QHS 09/13/24 History hydrochlorothiazide 12.5 mg tablet 12.5 mg PO DAILY 02/28/25 History turmeric 400 mg PO DAILY 09/13/24 History Held on 09/23/24. Instructions: Resume on 09/30/24. acetaminophen 325 mg tablet 325 mg PO ONCE PRN pain 02/28/25 History (Tylenol) ciprofloxacin HCl 0.3 % eye drops See Rx Instructions ophthalmic 01/04/25 02/28/25 Rx (eye) .COMPLEX #10 mL Have you fallen in the past year?: [...] surgery History of foot surgery S/P hysterectomy (~2018) Family History Mother Hypertension CVA (cerebral vascular accident) Diabetes Father Hypertension Cancer Grandmother CAD (coronary artery disease) Social History Smoking Status: Never smoker alcohol intake: current substance use type: does not use HPI RIGHT HAND Details: This documentation accurately reflects the service provided and the decisions made by me, Dr. Brian Garcia, DO 02/28/25 0820. Part of today?s visit was documented by Jamia PALAFOX, acting as scribe. ROSANNE BANERJEE is a 64 year old F here today for EMG review of the right wrist. Her symptoms are unchanged 11/01/2024 visit:63 year old F here today for s/p left wrist ORIF distal radius DOS 09/23/2024. Patient denies any pain in the left wrist today and states she isdoing well. Patient continues with OT and she has been going once a week right now for range of motion and scar management. Once she is cleared she is going tostart going twice a week to start with strengthening exercises. She only has to take pain medication when she feels like she over uses the wrist but states it is not very often. Patient complains of right hand numbness/tingling that she has noticed at night and in the mornings. She has been wearing a brace to sleep in for a couple of years now and it has helped. The index, middle and ring finger goes numb quite often. She is RHD. She denies any injections. She has been working on nerve glide exercises but has not noticed any relief. Plan:Obtained and reviewed left wrist x-rays today in the clinic. Reviewed imaging findings in detail today with the patient and explained that the hardware maintains good positioning and the bones are healing. Explained she canincrease her weight restrictions to 7 pounds at this time for next 2 weeks then she can slowly progress to full by another 4 weeks. She should continue with range of motion exercises as well as begin strengthening of the wrist but shouldbe smart about her weight. I do not need to see her back for the left wrist unless she has any concerns or new injuries. After evaluation of the right wrist she does have carpal tunnel symptoms and we would need an EMG study done to evaluate for carpal tunnel. She would like to wait to proceed with carpal tunnel release surgery until March so recommend she wait until January to get an EMG study done. She should call the office closer to January and let us know she would like to get the testing done and we can order the test at that time. Follow up after the EMG study to review and get carpal tunnel release surgery scheduled or sooner if pain, swelling, numbness or associated symptoms, or concerns develop. All questions answered. Patient in agreement of plan. Ortho Exam General General: Yes no acute distress and Yes well groomed Neurologic: Yes alert and Yes oriented x3 Psychologic: Yes reasonable and appropriate Right Wrist/Hand Skin/Wound: Yes CDI, No Swelling, No Ecchymosis, Yes nail intact and Yes capillary refill normal Right Wrist: Yes ROM-Extension 0-60, ROM-Flexion 0-80, ROM-Pronation 0-80, ROM-Supination 0-90, Durken's Test and Phalen's WRIST: mild Tinel's into the middle + Phalens good abduction strength Left Wrist/Hand Skin/Wound: Yes CDI, No Swelling and No Ecchymosis WRIST: full supination full pronation 78 wrist extension 48 wrist flexion Supplemental Info 02/26/2025 EMG right upper extremity:1. Electrodiagnostic findings suggestive of right sided median mononeuropathy. This is consistent with a moderate right carpal tunnel syndrome. 11/01/2024 x-ray left wrist: Status post ORIF distal radius with good alignment 09/23/2024 ORIF left distal radius: Dr. Garcia 09/13/2024 x-ray Left wrist: left wrist pre and postreduction x-rays intra- articular impacted dorsally angulated distal radius fracture prereduction postreduction anatomic is improved however there is some residual tilt to the articular surface dorsal tilt to articular surface 11 degrees. Coding Level of Care Code Off vis,est,level 3 Diagnoses Carpal tunnel syndrome, right G56.01 Assessment and Plan Assessment and Plan (1) Carpal tunnel syndrome, right: Status: Acute Plan Patient is here today for EMG review for the right hand. I spoke with patient that the EMG does show carpal tunnel like we had suspected. Patient would like to proceed with surgery but would like to wait until March 17 or after for surgery. We will shoot for a planned tentative date of March 182024 I advised patient that she should not take any NSAIDs 7 days before surgery but she can take Tylenol if she needs it. I did review the surgery procedure today as well as risks and benefits. I spoke with patient that the first 2 weeks aftersurgery she will have a 1/2 pound lifting restriction then 5 pound restriction for an additional week , Risks of surgery include but not limited to bleeding infection nerve artery tissue damage need for further surgery continued pain incisional hypersensitivity pillar pain, continued carpal tunnel symptoms or delay until symptom relief. Follow up at 2 weeks post-op or sooner if pain, swelling, numbness or associatedsymptoms, or concerns develop. All questions answered. Patient in agreement of plan. Clinical Quality Measures Falls Risk Screening/Assistive Devices Have you fallen in the past year?: Yes 02/28/25 1104 <Electronically signed by Brian saravia DO> Date _ Brian Gainesignjed Signature: Date (if applicable) CC: ~ [facility] Work Phone: Reason for referral (narrative)No reason for referral information availableWCommunity [facility] Work Phone: Summary Purpose Family History No Family History Records Found Relationship Condition Age at Onset Recorded Date/T maria esther mother Hypertension Unknown Cerebrovascular accident (CVA) Unknown Diabetes mellitus Unknown father Hypertension Unknown Malignant neoplasm Unknown grandmother Coronary artery disease Unknown Advance Directives No Advanced Directives Records FoundDocuments on File Type Date Recorded 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 Advance Directives and Livin g Will 07/16/2020 12:00 AM Documents on File Type Date Recorded 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 Advance Directive(s) 07/27/2021 11:17 AM Advance Directive(s) 07/20/2021 10:03 AM Documents on File Type Date Recorded 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 Advance Directive(s) 07/27/2021 11:17 AM Advance Directive(s) 07/20/2021 10:03 AM Advance Directive Response Recorded Date/ Time Advance Directives Yes April 16, 2021 10:43am Living Will Yes April 16 10:43am Power of Senior Qa Analyst Yes April 16, 2021 10:43am Advance Directive Response Recorded Date/ Time Advance Directives Yes April 16, 2021 9:43am Living Will Yes April 16 9:43am Power of Senior Qa Analyst Yes April 16, 2021 9:43am Advance Directive Response Recorded Date/ Time Advance Directives Yes September 22 10:42am Living Will Yes September 22, 2022 1 0:42am Power of Senior Qa Analyst Yes September 22, 2022 10:42am Advance Directive Response Recorded Date/ Time Advance Directives Yes September 13, 2024 2:27pm Do you have a Healthcare Power of Senior Qa Analyst? No September 13, 2024 1:20pm Do you have a Healthcare Power of Senior Qa Analyst? Yes September 19, 2024 12:25pm Advance Directive Response Recorded Date/ Time Advance Directives Yes September 13, 2024 2:27pm Reason for Referral Specialty Diagnoses / Procedures Referred By Jessica shore Referred To Contact [facility] Diagnoses Other tear of medial meniscus of right knee as current injury, initial encounter Procedures CONSULT TO PHYSICAL THERAPY PHYSICAL THERAPY EVALUATION HIGH COMPLEX 45 MINS Destiny Randall DO [address] [place] [address] [facility] [address] [address] Referral ID Status Reason Start Date Expiration Date Visits Requested Visits Authorized [id number] Pending Review Auto-Generat ed Referral 08/11/2021 08/11/2022 1 1 Specialty Diagnoses / Procedures Referred By Jessica shore Referred To Contact [facility] Diagnoses Chronic pain of right knee Tear of medial meniscus of right knee, current, unspecified tear type, subsequent encounter Procedures CONSULT TO PHYSICAL THERAPY PHYSICAL THERAPY EVALUATION HIGH COMPLEX 45 MINS Destiny Randall DO [address] [place] [address] [facility] [place] [address] [place] [address] Referral ID Status Reason Start Date Expiration Date Visits Requested Visits Authorized [id number] Pending Review Auto-Generat ed Referral 10/01/2021 10/01/2022 [...] Orthopedic aftercare October 09, 2024 10:0 4am Chief Complaint Admit Date September 13, 2024 1:04pm LEFT WRIST September 18, 2024 8:31am PREOP September 19, 2024 1:44pm ORIF, Left Wrist September 23, 2024 11:10 am ORIF, Left Wrist September 23, 2024 1:08p m LEFT WRIST September 30, 2024 10:04 am LEFT WRIST October 09, 2024 10:04 am DISTAL RADIUS FRACTURE. RX HERE October 9:30am Fracture of unspecified carpal bone, lef t wrist, October 31, 2024 9:06am LEFT WRIST November 01, 2024 8:53 am Room 2 November 01, 2024 9:03 am Chief Complaint Admit Date September 13, 2024 1:04pm LEFT WRIST September 18, 2024 8:31am PREOP September 19, 2024 1:44pm ORIF, Left Wrist September 23, 2024 11:10 am ORIF, Left Wrist September 23, 2024 1:08p m LEFT WRIST September 30, 2024 10:04 am LEFT WRIST October 09, 2024 10:04 am Fracture of unspecified carpal bone, lef t wrist, October 31, 2024 9:06am LEFT WRIST November 01, 2024 8:53 am Room 2 November 01, 2024 9:03 am DISTAL RADIUS FRACTURE. RX HERE October 11:30am Reason for Visit Admit Date Distal radius fracture, left September 18 8:31am Orthopedic aftercare September 30, 2024 10:0 4am Orthopedic aftercare October 09, 2024 10:0 4am Carpal tunnel syndrome, right November 01, 2024 8:53am Chief Complaint Admit Date September 13, 2024 1:04pm LEFT WRIST September 18, 2024 8:31am PREOP September 19, 2024 1:44pm ORIF, Left Wrist September 23, 2024 11:10 am ORIF, Left Wrist September 23, 2024 1:08p m LEFT WRIST September 30, 2024 10:04 am LEFT WRIST October 09, 2024 10:04 am Fracture of unspecified carpal bone, lef t wrist, October 31, 2024 9:06am LEFT WRIST November 01, 2024 8:53 am Room 2 November 01, 2024 9:03 am DISTAL RADIUS FRACTURE. RX HERE November 9:30am Chief Complaint Admit Date upper September 13, 2024 1:04pm LEFT WRIST September 18, 2024 8:31am PREOP September 19, 2024 1:44pm ORIF, Left Wrist September 23, 2024 11:10 am ORIF, Left Wrist September 23, 2024 1:08p m LEFT WRIST September 30, 2024 10:04 am LEFT WRIST October 09, 2024 10:04 am Fracture of unspecified carpal bone, lef t wrist, October 31, 2024 9:06am LEFT WRIST November 01, 2024 8:53 am Room 2 November 01, 2024 9:03 am DISTAL RADIUS FRACTURE. RX HERE November 9:30am CONCERN FOR PINK EYE January 04, 2025 8 :26am Chief Complaint Admit Date DISTAL RADIUS FRACTURE. RX HERE November 9:30am CONCERN FOR PINK EYE January 04, 2025 8 :26am SCREENING February 24, 2025 1 0:07am RUE; Carpal tunnel syndrome February 12:07pm RUE; Carpal tunnel syndrome February 1:11pm RIGHT HAND February 28, 2025 9 :55am Reason for Visit Admit Date Viral conjunctivitis January 04, 2025 8 :26am Carpal tunnel syndrome, right February 282024 9:55am Medications Administered Section Inactive Administered Medications - [...] ONE TIME INJECTION, 1 dose, Starting on Mon01/06/22 at 1359, Until Mon01/06/22 at 1359 Given 01/06/2022 1:59 PM EDT [...] section and content) DATE CREATED AUTHOR 03/03/2020 [facility] ([place]) DATE CREATED AUTHOR AUTHOR'S ORGANIZ ATION 08/09/2020 [facility] DATE CREATED AUTHOR AUTHOR'S ORGANIZ ATION 07/28/2021 [facility] DATE CREATED AUTHOR AUTHOR'S ORGANIZ ATION 12/24/2022 [facility] DATE CREATED AUTHOR AUTHOR'S ORGANIZ ATION 03/27/2025 [facility] Source Comments (unrecognize d section and content) In the event this informatio n is protected by the Federal Confidentiality of Alcohol and Drug Abuse Patient Records regulations: The Federal rules restrict any use of the information to criminally investigate or prosecute any alcohol or drug abuse patient.[facility] Hospital[facility] the event this information is protected by the Federal Confidentiality of Alcohol and Drug Abuse Patient Records regulations: The Federal rules restrict any use of the information to criminally investigate or prosecute any alcohol or drug abuse patient.[facility] HospitalIn the event this information is protected by the Federal Confidentiality of Alcohol and Drug Abuse Patient Records regulations: The Federal rules restrict any use of the information to criminally investigate or prosecute any alcohol or drug abuse patient.[facility] HospitalIn the event this information is protected by the Federal Confidentiality of Alcohol and Drug Abuse Patient Records regulations: The Federal rules restrict any use of the information to criminally investigate or prosecute any alcohol or drug abuse patient.[facility] HospitalIn the event this information is protected by the Federal Confidentiality of Alcohol and Drug Abuse Patient Records regulations: The Federal rules restrict any use of the information to criminally investigate or prosecute any alcohol or drug abuse patient.[facility] HospitalIn the event this information is protected by the Federal Confidentiality of Alcohol and Drug Abuse Patient Records regulations: The Federal rules restrict any use of the information to criminally investigate or prosecute any alcohol or drug abuse patient.[facility] HospitalIn the event this information is protected by the Federal Confidentiality of Alcohol and Drug Abuse Patient Records regulations: The Federal rules restrict any use of the information to criminally investigate or prosecute any alcohol or drug abuse patient.[facility] HospitalIn the event this information is protected by the Federal Confidentiality of Alcohol and Drug Abuse Patient Records regulations: The Federal rules restrict any use of the information to criminally investigate or prosecute any alcohol or drug abuse patient.[facility] HospitalIn the event this information is protected by the Federal Confidentiality of Alcohol and Drug Abuse Patient Records regulations: The Federal rules restrict any use of the information to criminally investigate or prosecute any alcohol or drug abuse patient.[facility] HospitalIn the event this information is protected by the Federal Confidentiality of Alcohol and Drug Abuse Patient Records regulations: The Federal rules restrict any use of the information to criminally investigate or prosecute any alcohol or drug abuse patient.[facility] HospitalIn the event this information is protected by the Federal Confidentiality of Alcohol and Drug Abuse Patient Records regulations: The Federal rules restrict any use of the information to criminally investigate or prosecute any alcohol or drug abuse patient.[facility] HospitalIn the event this information is protected by the Federal Confidentiality of Alcohol and Drug Abuse Patient Records regulations: The Federal rules restrict any use of the information to criminally investigate or prosecute any alcohol or drug abuse patient.[facility] Reason for Visit (unrecogniz ed section and content) Reason Comments Established Patient Injections Specialty Diagnoses / Procedures Referred By Contac t Referred To Contact ORTHOPAEDIC SURGERY Diagnoses Osteoarthritis of right knee Procedures EUFLEXXA INJ PER DOSE INJECTION KNEE HYALGAN/SUPARTZ INJ PER DOSE Destiny Randall DO [address] [place] [address] [place] [address] [address] Referral ID Status Reason Start Date Expiration Date V isits Requested Visits Authorized [id number] Authorized 11/17/2022 02/24/2023 99 99 Reason Comments Established Patient Injections Knee Pain Reason Comments Follow Up Knee Pain Reason Comments Established Patient Knee Pain Supartz Fx injection #2 Specialty Diagnoses / Procedures Referred By Contac t Referred To Contact ORTHOPAEDIC SURGERY Diagnoses Unilateral primary osteoarthritis, right knee OSTEOARTHRITIS RIGHT KNEE Procedures EUFLEXXA OR PAYOR PREFERRED Destiny Randall DO [address] [place] [address] [place] [address] [place] [address] Referral ID Status Reason Start Date Expiration Date V isits Requested Visits Authorized [id number] Authorized 01/07/2022 07/28/2022 3 3 Reason Comments Knee Pain Post Op Specialty Diagnoses / Procedures Referred By Contac t Referred To Contact Orthopedics / ORTHOPAEDIC SURGERY Diagnoses Other tear of medial meniscus of right knee as current injury, initial encounter post op Rt med men root repair Procedures OFFICE/OUTPATIENT NEW MODERATE MDM 45-59 MINUTES POST OP Self Destiny Randall [place] [address] Referral ID Status Reason Start Date Expiration Date V isits Requested Visits Authorized [id number] Authorized 08/04/2021 08/04/2022 4 4 Reason Comments [...] MINUTES POST OP Self Destiny Randall [place] [address] Specialty Diagnoses / Procedures Referred By Ajac t Referred To Contact Orthopedics / ORTHOPAEDIC SURGERY Diagnoses Follow-up examination post op right knee meniscus - dos 07/27/21 Procedures OFFICE/OUTPATIENT ESTABLISHED MOD MDM 30-39 MIN POST OP Destiny Randall [place] [address] Destiny Randall [place] [address] Referral ID Status Reason Start Date Expiration Date Visits Re quested Visits Authorized [id number] Closed 01/05/2022 05/14/2022 1 1 Reason Comments Appointment Conflict Reason Comments Established Patient Knee Pain Injections Reason Comments Appointment Specialty Diagnoses / Procedures Referred By Jessica shore Referred To Contact Radiology / RADIO GENERAL [facility] Diagnoses xray Procedures XR GENERAL 7 Isabell Vázquez APRN.[employer] [address] [place] [address] Radio General [facility] [address] [place] [address] Referral ID Status Reason Start Date Expiration Date Visits Re quested Visits Authorized [id number] Closed 10/26/2020 12/25/2020 99 99 Care Teams (unrecognized sec tion and content) Profiler Relationship Specialty Start Date End Date Rose Mary Ocasio PCP - General Family Practice 06/09/14 Profiler Relationship Specialty Start Date End Date Rose Mary Ocasio PCP - General Family Practice 06/09/14 Profiler Relationship Specialty Start Date End Date Rose Mary Ocasio PCP - General Family Practice 06/09/14 Profiler Relationship Specialty Start Date End Date Rose Mary Ocasio PCP - General Family Practice 06/09/14 Profiler Relationship Specialty Start Date End Date Rose Mary Ocasio PCP - General Family Medicine 06/09/14 Profiler Relationship Specialty Start Date End Date Rose Mary Ocasio PCP - General Family Medicine 06/09/14 Profiler Relationship Specialty Start Date End Date Rose Mary Ocasio PCP - General Family Medicine 06/09/14 Profiler Relationship Specialty Start Date End Date Rose Mary Ocasio PCP - General Family Medicine 06/09/14 Profiler Relationship Specialty Start Date End Date Rose Mary Ocasio PCP - General Family Medicine 06/09/14 Profiler Relationship Specialty Start Date End Date Rose Mary Ocasio PCP - General Family Medicine 06/09/14 Profiler Relationship Specialty Start Date End Date Rose [...] MD Attending Provider, Referring Pro vider Active Profiler Relationship Specialty Start Date End Date Rose [...] 2024 End: October 09, 2024 Dr. Brian Garcia DO Attending Provider Active Start: October 09, [...] Dr. Augustine Pace MD Attending Provider Active St art: October 14, 2024 End: October 14, 2024 Dr. Augustine Pace MD Referring Provider Active St art: October 14, 2024 End: October 14, 2024 Team Status: Active Member Role Status Dates Dr. Augustine Pace MD Primary Care Provider Active Start: October 28, 2024 Dr. Brian Garcia DO Attending Provider Active Start: October 28, 2024 Team Status: Active Member Role Status Dates Dr. Augustine Pace MD Primary Care Provider Active Start: October 31, 2024 Dr. Augustine Pace MD Attending Provider Active St art: October 31, 2024 Dr. Augustine Pace MD Referring Provider Active St art: October 31, 2024 Team Status: Active Member Role Status Dates Dr. Augustine Pace MD Primary Care Provider Active Start: November 01, 2024 Dr. Augustine Pace MD Referring Provider Active St art: November 01, 2024 Dr. Brian Garcia DO Attending Provider Active Start: November 01, 2024 Team Status: Inactive Member Role Status Dates Dr. Augustine Pace MD Primary Care Provider Active Start: November 01, 2024 End: November 01, 2024 Dr. Yahir Tesfaye MD Attending Provider Active S tart: November 01, 2024 End: November 01, 2024 Team Status: Inactive Member Role Status Dates Dr. Augustine Pace MD Primary Care Provider Active Start: November 01, 2024 End: November 01, 2024 Dr. Augustine Pace MD Referring Provider Active St art: November 01, 2024 End: November 01, 2024 Dr. Brian Garcia DO Attending Provider Active Start: November 01, 2024 End: November 01, 2024 Team Status: Inactive Member Role Status Dates Dr. Augustine Pace MD Primary Care Provider Active Start: October 31, 2024 End: October 31, 2024 Dr. Augustine Pace MD Attending Provider Active St art: October 31, 2024 End: October 31, 2024 Dr. Augustine Pace MD Referring Provider Active St art: October 31, 2024 End: October 31, 2024 Team Status: Active Member Role Status Dates Dr. Augustine Pace MD Primary Care Provider Active Start: November 05, 2024 Dr. Brian Garcia DO Attending Provider Active Start: November 05, 2024 Team Status: Active Member Role/Relationship Status Dates Dr. Augustine Pace MD Primary Care Provider Active Team Status: Inactive Member Role/Relationship Status Dates Dr. Rose Mary Ocasio MD Primary Care Provider Active Start: September 13, 2024 End: September 13, 2024 Dr. Ronn Mcgregor MD Attending Provider Active S tart: September 13, 2024 End: September 13, 2024 Dr. Ronn Mcgregor MD Emergency Provider Active S tart: September 13, 2024 End: September 13, 2024 Team Status: Inactive Member Role/Relationship Status Dates Dr. Rose Mary Ocasio MD Primary Care Provider Active Start: September 18, 2024 End: September 18, 2024 Dr. Rose Mary Ocasio MD Referring Provider Active Start: September 18, 2024 End: September 18, 2024 Dr. Brian Garcia DO Attending Provider Active Start: September 18, 2024 End: September 18, 2024 Team Status: Active Member Role/Relationship Status Dates Dr. Augustine Pace MD Primary Care Provider Active Start: September 19, 2024 End: September 19, 2024 Dr. Jad Teixeira MD Attending Provider Active Start: September 19, 2024 End: September 19, 2024 Dr. Brian Garcia DO Referring Provider Active Start: September 19, 2024 End: September 19, 2024 Team Status: Inactive Member Role/Relationship Status Dates Dr. Brian Garcia DO Attending Provider Active Start: September 23, 2024 End: September 23, 2024 Dr. Brian Garcia DO Referring Provider Active Start: September 23, 2024 End: September 23, 2024 Dr. Augustine Pace MD Primary Care Provider Active Start: September 23, 2024 End: September 23, 2024 Team Status: Active Member Role/Relationship Status Dates Dr. Brian Garcia DO Attending Provider Active Start: September 23, 2024 Dr. Brian Garcia DO Referring Provider Active Start: September 23, 2024 Dr. Brian Garcia DO Other Provider Active St art: September 23, 2024 Dr. Augustine Pace MD Primary Care Provider Active Start: September 23, 2024 Team Status: Inactive Member Role/Relationship Status Dates Dr. Augustine Pace MD Primary Care Provider Active Start: September 30, 2024 End: September 30, 2024 Dr. Augustine Pace MD Referring Provider Active St art: September 30, 2024 End: September 30, 2024 Dr. Brian Garcia DO Attending Provider Active Start: September 30, 2024 End: September 30, 2024 Team Status: Inactive Member Role/Relationship Status Dates Dr. Augustine Pace MD Primary Care Provider Active Start: October 09, 2024 End: October 09, 2024 Dr. Augustine Pace MD Referring Provider Active St art: October 09, 2024 End: October 09, 2024 Dr. Brian Garcia DO Attending Provider Active Start: October 09, 2024 End: October 09, 2024 Team Status: Inactive Member Role/Relationship Status Dates Dr. Augustine Pace MD Primary Care Provider Active Start: October 14, 2024 End: October 14, 2024 Dr. Augustine Pace MD Attending Provider Active St art: October 14, 2024 End: October 14, 2024 Dr. Augustine Pace MD Referring Provider Active St art: October 14, 2024 End: October 14, 2024 Team Status: Inactive Member Role/Relationship Status Dates Dr. Augustine Pace MD Primary Care Provider Active Start: October 31, 2024 End: October 31, 2024 Dr. Augustine Pace MD Attending Provider Active St art: October 31, 2024 End: October 31, 2024 Dr. Augustine Pace MD Referring Provider Active St art: October 31, 2024 End: October 31, 2024 Team Status: Inactive Member Role/Relationship Status Dates Dr. Augustine Pace MD Primary Care Provider Active Start: November 01, 2024 End: November 01, 2024 Dr. Augustine Pace MD Referring Provider Active St art: November 01, 2024 End: November 01, 2024 Dr. Brian Garcia DO Attending Provider Active Start: November 01, 2024 End: November 01, 2024 Team Status: Inactive Member Role/Relationship Status Dates Dr. Augustine Pace MD Primary Care Provider Active Start: November 01, 2024 End: November 01, 2024 Dr. Yahir Tesfaye MD Attending Provider Active S tart: November 01, 2024 End: November 01, 2024 Team Status: Inactive Member Role/Relationship Status Dates Dr. Augustine Pace MD Primary Care Provider Active Start: November 22, 2024 End: November 22, 2024 Dr. Brian Garcia DO Attending Provider Active Start: November 22, 2024 End: November 22, 2024 Team Status: Inactive Member Role/Relationship Status Dates Dr. Augustine Pace MD Primary Care Provider Active Start: December 03, 2024 End: December 03, 2024 Dr. Augustine Pace MD Attending Provider Active St art: December 03, 2024 End: December 03, 2024 Dr. Augustine Pace MD Referring Provider Active St art: December 03, 2024 End: December 03, 2024 Team Status: Inactive Member Role/Relationship Status Dates Dr. Augustine Pace MD Primary Care Provider Active Start: January 04, 2025 End: January 04, 2025 Dr. Augustine Pace MD Referring Provider Active St art: January 04, 2025 End: January 04, 2025 SUSHANT Buchanan Attending Provider Active Start: January 04, 2025 End: January 04, 2025 Team Status: Active Member Role/Relationship Status Dates Dr. Augustine Pace MD Primary care physician Active Team Status: Inactive Member Role/Relationship Status Dates Dr. Augustine Pace MD Primary care physician Active Start: November 22, 2024 End: November 22, 2024 Dr. Brian Garcia DO Attending physician Active Start: November 22, 2024 End: November 22, 2024 Team Status: Inactive Member Role/Relationship Status Dates Dr. Augustine Pace MD Primary care physician Active Start: December 03, 2024 End: December 03, 2024 Dr. Augustine Pace MD Attending physician Active S tart: December 03, 2024 End: December 03, 2024 Dr. Augustine Pace MD Referring Provider Active St art: December 03, 2024 End: December 03, 2024 Team Status: Inactive Member Role/Relationship Status Dates Dr. Augustine Pace MD Primary care physician Active Start: January 04, 2025 End: January 04, 2025 Dr. Augustine Pace MD Referring Provider Active St art: January 04, 2025 End: January 04, 2025 SUSHANT Buchanan Attending physician Active Start: January 04, 2025 End: January 04, 2025 Team Status: Inactive Member Role/Relationship Status Dates Dr. Augustine Pace MD Primary care physician Active Start: February 24, 2025 End: February 24, 2025 Dr. Augustine Pace MD Attending physician Active S tart: February 24, 2025 End: February 24, 2025 Dr. Augustine Pace MD Referring Provider Active St art: February 24, 2025 End: February 24, 2025 Team Status: Active Member Role/Relationship Status Dates Dr. Augustine Pace MD Primary care physician Active Start: February 26, 2025 Dr. Brian Garcia DO Attending physician Active Start: February 26, 2025 Dr. Brian Garcia DO Referring Provider Active Start: February 26, 2025 Team Status: Active Member Role/Relationship Status Dates Dr. Augustine Pace MD Primary care physician Active Start: February 26, 2025 Dr. Brian Garcia DO Referring Provider Active Start: February 26, 2025 Dr. Brian Garcia DO Nurse Practitioner Active Start: February 26, 2025 Dr. Javier Summers MD Attending physician Active Start: February 26, 2025 Team Status: Inactive Member Role/Relationship Status Dates Dr. Augustine Pace MD Primary care physician Active Start: February 28, 2025 End: February 28, 2025 Dr. Augustine Pace MD Referring Provider Active St art: February 28, 2025 End: February 28, 2025 Dr. Brian Garcia DO Attending physician Active Start: February 28, 2025 End: February 28, 2025 Goals (unrecognized section and content) Goals may [...] BE BASED ON THE PRIMARY CLINICAL RECORDS. [facility]. provides no warranty or guarantee of the accuracy or completeness of information in this document.
[2025-04-16 10:21] LABS: Hematocrit 41.8 % (37-47); Hemoglobin 14.0 g/dL (12.0-15.0); Immature Granulocytes Count 0.020 X10^3/uL (0.0-0.0); Mean Corp Hgb Conc 33.5 g/dL (32-36); Mean Corpuscular Volume 86.2 fL (81-99); Mean Platelet Vol. 10.2 fl (6.2-12.0); NRBC Flagged by Analyzer 0 % (0-5); Platelet Count 239 K/mm3 (150-450); RBC Distribution Width CV 14.3 % (11.6-14.6); RBC Distribution Width SD 45.4 fl (35.1-43.9); Red Blood Count 4.85 M/mm3 (4.2-5.4); White Blood Count 5.3 K/mm3 (4.4-11.0)
[2025-04-16 10:34] LABS: Creatinine, Urine (random) 62.50 mg/dL (28.00-217.00); Microalbumin,Random Urine 21.2 mg/L (<20 mg/L)
[2025-04-16 10:57] LABS: AST(SGOT) 26 U/L (<=31); Alanine Aminotransfer ALT/SGPT 19 U/L (<=34); Albumin, Serum 4.3 g/dL (3.4-4.8); Alkaline Phosphatase 83 U/L (35-104); Anion Gap 11 (5-15); BUN 23 mg/dL (4-19); BUN/Creat Ratio 27.8 RATIO (10-20); Calcium,Total 9.9 mg/dL (7.6-11.0); Carbon Dioxide 27.7 mmol/L (21.0-32.0); Chloride 99 mmol/L (98-108); Cholesterol 207 mg/dL (<=200); Free T3 2.3 pg/mL (2.18-3.98); Globulin 2.9 g/dL (2.2-4.2); Glucose 95 mg/dL (70-99); Low Density Lipoprotein Calc. 119 mg/dL; Potassium 4.3 mmol/L (3.3-5.1); Triglycerides 50 mg/dL; Very Low Density Lipoprotein 10 mg/dL (5-40); Vitamin D,25 Hydroxy 58.9 ng/mL (30-100); cholesterol:hdl ratio screen 2.63
== END | disposition home or self-care (01) ==
LOC: MTLAB 07:10
PROVIDERS: PCP Family Medicine; Referring Provider Family Medicine; Visit Provider Family Medicine
DX: I10 Essential (primary) hypertension (principal); E03.9 Hypothyroidism, unspecified; M25.569 Pain in unspecified knee; E55.9 Vitamin D deficiency, unspecified
CPT/HCPCS: 36415; 80053; 80061; 82043; 82306; 82570; 84439; 84443; 84481; 85025